=== PATIENT | female | born 1965 | race Caucasian/White ===

== ENCOUNTER 2023-03-16 17:20 | Emergency (ER) | payer BC, SELFPAY ==
[2023-03-16 17:24] VITALS: BP 164/95; PULSE 80; RESP 18; TEMP 37.2; O2SAT 100; BMI 40.3
--- NOTE | 2023-03-16 17:28 | ED.ABDPAIN1 ---
HPI - Abdominal Pain General Chief Complaint: Abdominal Pain Stated Complaint: Lower Back Pain, Abdominal Pain Time Seen by Provider: 03/16/23 17:28 Source: patient Mode of arrival: walk-in Limitations: no limitations History of Present Illness HPI narrative: Patient presents to emergency department complaining of left flank and abdomen pain. Patient states symptoms started on Tuesday. She called her primary care doctor yesterday and was given a prescription for Cipro. The patient has taken 2 doses of Cipro since yesterday. She states she is just not feeling well is not having regular bowel movements. She denies any vomiting has been nauseated and not eating and drinking as he normally does. She denies any fever but feels generalized malaise. She denies any upper respiratory infection symptoms. She denies any cough, chest pain, shortness of breath. She denies any hematuria, dysuria. She states she had a colonoscopy done at [place] and she had 3 polyps this was a while back. Does not remember who her doctor was. Related Data Home Medications Medication Instructions Recorded Confirmed ciprofloxacin HCl 500 mg tablet 500 mg PO Q12H 03/16/23 03/16/23 metronidazole 500 mg tablet 500 mg PO Q12H 03/16/23 03/16/23 Allergies Allergy/AdvReac Type Severity Reaction Status Date / Time Iodinated Contrast Media Allergy Intermediate Verified 03/16/23 17:28 Penicillins Allergy Intermediate Verified 03/16/23 17:28 Review of Systems ROS Status of ROS 10 or more systems reviewed and unremarkable except as noted in history and below Exam Narrative Exam Narrative: Nurses notes and vital signs reviewed and patient is not hypoxic. General: Nontoxic, Well-appearing and in no apparent distress. Skin: Warm, dry, no pallor noted. No Rash Head: Normocephalic, atraumatic. Neck: Supple, non-tender. Eye: Pupils are equal, round and EOMI. No scleral icterus. Ears, Nose, Mouth, and Throat: TM clear, no posterior oropharynx erythema or nasal mucosal hypertrophy, uvula is mid-line Oral mucosa is moist Cardiovascular: Regular Rate and Rhythm without murmur, gallop or rub. Respiratory: No accessory muscle use or respiratory distress. Lungs are clear to auscultation, no wheezing, rales or rhonchi Chest Wall: no tenderness Back: No midline thoracic or lumbar vertebral tenderness. No CVA tenderness Musculoskeletal: normal ROM, no calf or popliteal tenderness, no lower extremity edema/swelling GI: Abdomen is soft, non-distended. Normal bowel sounds. No masses appreciated. Moderate left lower quadrant tenderness to palpation. No rebound, guarding, or rigidity noted. Neurological: A&O x4. No cranial nerve dysfunction observed. No truncal ataxia. Moves all extremities. Sensation intact. Psychiatric: Cooperative and interactive. Normal mood and affect. Constitutional Vital Signs, click to edit/add: Last Vital Signs Temp 98.9 F 03/16/23 17:24 Pulse 80 03/16/23 17:24 Resp 18 03/16/23 17:24 BP 164/95 H 03/16/23 17:24 Pulse Ox 100 03/16/23 17:24 O2 Del Method Room Air 03/16/23 17:24 Course Vital Signs Vital signs: Vital Signs Temperature 98.9 F 03/16/23 17:24 Pulse Rate 80 03/16/23 17:24 Respiratory Rate 18 03/16/23 17:24 Blood Pressure 164/95 H 03/16/23 17:24 Pulse Oximetry 100 03/16/23 17:24 Oxygen Delivery Method Room Air 03/16/23 17:24 Temperature 98.9 F 03/16/23 17:24 Pulse Rate 80 03/16/23 17:24 Respiratory Rate 18 03/16/23 17:24 Blood Pressure 164/95 H 03/16/23 17:24 Pulse Oximetry 100 03/16/23 17:24 Oxygen Delivery Method Room Air 03/16/23 17:24 MDM - Abdominal Pain MDM Narrative Medical decision making narrative: Patient had an IV established, given 4 mg of morphine, 4 mg of Zofran, and 1 L of normal saline. Lab studies were ordered and CT scan abdomen and pelvis is pending. Patient will be signed out at the end of my shift to Dr. Rodriguez her awaiting CT scan results, lab studies, reevaluation, and disposition. Differential Diagnosis Differential diagnosis: Likely abdominal pain, constipation, diverticulitis and small bowel obstruction Lab Data Attestation: I reviewed the patient's lab results. Labs: Lab Results 03/16/23 Range/Units 17:34 WBC 12.4 H (4.0-11.0) 10^3/uL RBC 3.85 L (4.20-5.40) 10^6/uL Hgb 12.6 (12.0-16.0) g/dL Hct 37.7 (36.0-48.0) % MCV 97.9 (81.0-99.0) fL MCH 32.7 (26.7-34.0) pg MCHC 33.4 (29.9-35.2) g/dL RDW 12.6 (11.0-15.0) % Plt Count 385 (150-450) 10^3/uL MPV 10.2 (9.5-13.5) fL Neut % (Auto) 72.6 (43.0-75.0) % Lymph % (Auto) 17.3 L (20.5-60.0) % [place] % (Auto) 7.4 (1.7-12.0) % Eos % (Auto) 1.9 (0.9-7.0) % Baso % (Auto) 0.3 (0.2-2.0) % Neut # (Auto) 9.0 H (1.4-6.5) 10^3/uL Lymph # (Auto) 2.1 (1.2-3.8) 10^3/uL [place] # (Auto) 0.9 H (0.3-0.8) 10^3/uL Eos # (Auto) 0.2 (0.0-0.7) 10^3/uL Baso # (Auto) 0.0 (0.0-0.1) 10^3/uL Abs Immat Gran (auto) 0.06 H (0.00-0.03) 10^3/uL Imm/Tot Granulo (auto) 0.5 (0.0-0.5) % Sodium 135 L (136-145) mmol/L Potassium 3.7 (3.5-5.1) mmol/L Chloride 99 (98-107) mmol/L Carbon Dioxide 27.7 (21.0-32.0) mmol/L Anion Gap 12.0 BUN 12.0 (7.0-18.0) mg/dL Creatinine 0.85 (0.55-1.02) mg/dL Est GFR ( Amer) >60 (>=60) Est GFR (Non-Af Amer) >60 (>=60) BUN/Creatinine Ratio 14.1 Glucose 108 H (74-106) mg/dL Lactate 0.9 (0.4-2.0) mmol/L Calcium 9.4 (8.5-10.1) mg/dL Total Bilirubin 0.7 (0.2-1.0) mg/dL AST 22 (15-37) U/L ALT 29 (14-59) U/L Alkaline Phosphatase 73 (46-116) U/L Total Protein 8.5 H (6.4-8.2) g/dL Albumin 3.9 (3.4-5.0) g/dL Globulin 4.6 g/dL Albumin/Globulin Ratio 0.8 Lipase 43.0 L (73.0-393.0) U/L Discharge Plan Discharge Chief Complaint: Abdominal Pain Clinical Impression: Diverticulitis Patient Disposition: Still a Patient Prescriptions / Home Meds: No Action ciprofloxacin HCl 500 mg tablet 500 mg PO Q12H metronidazole 500 mg tablet 500 mg PO Q12H Referrals: JUSTINA KIDD [Primary Care Provider] - 1 week
--- NOTE | 2023-03-16 17:34 | CT_ITS ---
The [address] [address] Patient Name: MAR ADAME MRN: [id number] date: 1965 Sex: F Assigned Patient Location: ER Current Patient Location: ER Accession/Order Number: [id number] Exam Date: 03/16/2023 18:27 Report Date: 03/16/2023 19:21 At the request of: HIWOT CULVER Procedure: CT abdomen pelvis wo con CT ABDOMEN/PELVIS WITHOUT IV CONTRAST. INDICATION: llq pain COMPARISON: 05/28/2021 TECHNIQUE: Contiguous axial images were obtained from the lung bases to the pelvic floor without intravenous or oral contrast. Coronal and sagittal reformations are provided. FINDINGS: LOWER LUNGS: There is minimal atelectasis in the lower lobes. LIVER/BILIARY TREE: No discrete lesion. No intrahepatic ductal dilatation. GALLBLADDER: Status post cholecystectomy. CBD: Normal CBD. SPLEEN: Normal in size. PANCREAS: No appreciable peripancreatic fluid. No pancreatic ductal dilatation. No discrete lesion. ADRENALS: Normal. KIDNEYS: No hydronephrosis. No radiopaque calculus. STOMACH AND BOWEL: Stomach is unremarkable. No dilated bowel loops. There is thickening and inflammation of the sigmoid colon secondary to acute diverticulitis. No evidence of perforation or abscess. APPENDIX: Normal appendix. PERITONEAL CAVITY: No fluid. There is stranding surrounding the sigmoid colon. ABDOMINAL WALL: No subcutaneous stranding. No subcutaneous fluid collection. LYMPH NODES: No mesenteric or retroperitoneal lymphadenopathy by CT criteria. ABDOMINAL AORTA: No aneurysm. PELVIS: Acute sigmoid diverticulitis. There is mild bladder thickening likely reactive. MUSCULOSKELETAL: No acute osseous abnormality. CT/CT abdomen pelvis wo con IMPRESSION: Acute uncomplicated sigmoid diverticulitis. Electronically authenticated by: MARIO ROLDAN Date: 03/16/2023 19:21
[2023-03-16 17:46] LABS: Basophils Percent Auto 0.3 % (0.2-2.0); Eosinophils Absolute Auto 0.2 10^3/uL (0.0-0.7); Eosinophils Percent Auto 1.9 % (0.9-7.0); Hematocrit 37.7 % (36.0-48.0); Hemoglobin 12.6 g/dL (12.0-16.0); Immature Granulocytes Abs Auto 0.06 10^3/uL (0.00-0.03); Immature Granulocytes Pct Auto 0.5 % (0.0-0.5); Lymphocytes Absolute Auto 2.1 10^3/uL (1.2-3.8); Lymphocytes Percent Auto 17.3 % (20.5-60.0); Mean Corpuscular HGB Conc 33.4 g/dL (29.9-35.2); Mean Corpuscular Hemoglobin 32.7 pg (26.7-34.0); Mean Corpuscular Volume 97.9 fL (81.0-99.0); Mean Platelet Volume 10.2 fL (9.5-13.5); Monocytes Absolute Auto 0.9 10^3/uL (0.3-0.8); Monocytes Percent Auto 7.4 % (1.7-12.0); Neutrophils Percent Auto 72.6 % (43.0-75.0); Platelet Count 385 10^3/uL (150-450); Red Blood Count 3.85 10^6/uL (4.20-5.40); Red Cell Distribution Width 12.6 % (11.0-15.0); White Blood Count 12.4 10^3/uL (4.0-11.0)
[2023-03-16] MEDS: 0.9 % SODIUM CHLORIDE 1,000 ML 999 ML IV (17:57)
[2023-03-16] MEDS: ONDANSETRON PF 4 MG/2 ML VIAL IV (17:57)
[2023-03-16] MEDS: MORPHINE SULFATE 2 MG/ML SYRINGE 4 MG IV (17:57)
[2023-03-16 18:03] LABS: Lactate/Lactic Acid 0.9 mmol/L (0.4-2.0)
[2023-03-16 18:09] LABS: Alanine Aminotransferase 29 U/L (14-59); Albumin Globulin Ratio 0.8; Albumin Level 3.9 g/dL (3.4-5.0); Alkaline Phosphatase 73 U/L (46-116); Aspartate Amino Transferase 22 U/L (15-37); BUN Creatinine Ratio 14.1; Bilirubin Total 0.7 mg/dL (0.2-1.0); Calcium 9.4 mg/dL (8.5-10.1); Carbon Dioxide 27.7 mmol/L (21.0-32.0); Chloride 99 mmol/L (98-107); Estimated GFR (African America >60 (>=60); Estimated GFR (Non-African Ame >60 (>=60); Globulin 4.6 g/dL; Glucose 108 mg/dL (74-106); Potassium 3.7 mmol/L (3.5-5.1); Sodium 135 mmol/L (136-145); Total Protein 8.5 g/dL (6.4-8.2)
--- NOTE | 2023-03-16 18:09 | ECG_ITS ---
The [facility] Test Date: 2023-03-16 Pat Name: MAR ADAME Department: Room: - Gender: Female [employer] Engineer: : 1965 Requested By: [id number] Order Number: [id number] Reading MD: ELIAZAR GILLIS Measurements Intervals [place] Rate: 82 P: 65 [place]: 158 QRS: 45 QRSD: 130 T: 36 QT: 400 QTc: 438 Interpretive Statements 1100 Sinus rhythm 2450 Right bundle branch block 3514 Cannot rule out lateral myocardial infarction, age undetermined 9150 abnormal ECG No previous ECG available for comparison Electronically Signed On 03-17-2023 7:15:19 EDT by ELIAZAR GILLIS
[2023-03-16 18:44] LABS: Bilirubin Urine NEGATIVE (NEGATIVE); Blood Urine NEGATIVE (NEGATIVE); Clarity Urine CLEAR (CLEAR); Color Urine YELLOW (YELLOW); Glucose Urine UA NEGATIVE (NEGATIVE); Ketones Urine 15 mg/dL (NEGATIVE); Leukocyte Esterase Urine TRACE (NEGATIVE); Nitrite Urine NEGATIVE (NEGATIVE); Protein Urine TRACE mg/dL (NEG/TRACE); Specific Gravity Urine >=1.030 (1.005-1.025); Urobilinogen Urine 0.2 EU/dL (0.2-1.0); pH Urine 5.5 (5.0-9.0)
[2023-03-16 18:53] LABS: Urine Microscopic Indicated YES
[2023-03-16 19:01] LABS: Bacteria Urine TRACE #/HPF (NONE SEEN); Mucus Urine SMALL (NONE SEEN); RBC Urine 0-2 #/HPF (0-2)
[2023-03-16 19:02] LABS: Cast Seen? NONE SEEN #/LPF (NONE SEEN); Crystals Seen? None Seen #/HPF (None Seen); Squamous Epithelial Cell Urine FEW #/LPF (NONE/RARE); Urine Culture Indicated NO
[2023-03-16] MEDS: CIPROFLOXACIN IN 5 % DEXTROSE 400 MG/200 ML PIGGYBACK IV (19:23)
[2023-03-16] MEDS: METRONIDAZOLE/SODIUM CHLORIDE 500 MG/100 ML PREMIX 100 MG IV (19:23)
[2023-03-16] MEDS: PROMETHAZINE HCL 25 MG/ML VIAL 12.5 MG IV (20:38)
[2023-03-16 20:52] VITALS: PULSE 76; RESP 16; O2SAT 98
== END 2023-03-16 20:53 | disposition home or self-care (01) ==
PROVIDERS: Emergency Medicine; Emergency Provider Internal Medicine; PCP Family Medicine
DX: K57.32 Diverticulitis of large intestine without perforation or abscess without bleeding (principal)
CPT/HCPCS: 36415; 74176; 80053; 81001; 83605; 83690; 85025; 93005; 96365; 96375; 99285

== ENCOUNTER 2023-07-17 13:50 | Emergency (ER) | payer BC, SELFPAY ==
[2023-07-17 13:54] VITALS: BP 136/92; PULSE 89; RESP 16; TEMP 36.9; O2SAT 96; BMI 39.5
--- NOTE | 2023-07-17 14:03 | ED.WOUNDLAC1 ---
HPI - Wound/Laceration General Chief Complaint: Wound/Laceration Stated Complaint: laceration left hand Time Seen by Provider: 07/17/23 13:54 Source: patient Mode of arrival: walk-in Limitations: no limitations History of Present Illness HPI narrative: 58-year-old female presents for a wound to her left index finger. It was sustained on a kitchen knife just before coming into the emergency department and she couldn't get it to stop bleeding. It's been more than ten years since her last tetanus shot. No other injury was sustained. Related Data Allergies Allergy/AdvReac Type Severity Reaction Status Date / Time Iodinated Contrast Media Allergy Intermediate Verified 07/17/23 13:53 Penicillins Allergy Intermediate Verified 07/17/23 13:53 Review of Systems ROS Narrative A ten point review of systems is negative except as noted above. Exam Narrative Exam Narrative: Nurses note and vital signs reviewed and patient is not hypoxic. General: The patient appears well and in no apparent distress. Patient is resting comfortably on cart. Skin: Warm, dry, no pallor noted. There is no rash noted. Head: Normocephalic, atraumatic Eye: Normal conjunctiva, no drainage Ears, Nose, Mouth, and Throat: oral mucosa is moist. Nares patent. Cardiovascular: Regular Rate and Rhythm Respiratory: Patient is in no distress, no accessory muscle use Back: non-tender GI: nontender Musculoskeletal: there is an avulsion of skin on her left index finger on the radial side distally adjacent to the nail. Minimal bleeding is present easily controlled with pressure. Neurological: A&O, normal speech Psychiatric: Cooperative Constitutional Vital Signs, click to edit/add: Last Vital Signs Temp 98.5 F 07/17/23 13:54 Pulse 89 07/17/23 13:54 Resp 16 07/17/23 13:54 BP 136/92 H 07/17/23 13:54 Pulse Ox 96 07/17/23 13:54 O2 Del Method Room Air 07/17/23 13:54 Course Vital Signs Vital signs: Vital Signs Temperature 98.5 F 07/17/23 13:54 Pulse Rate 89 07/17/23 13:54 Respiratory Rate 16 07/17/23 13:54 Blood Pressure 136/92 H 07/17/23 13:54 Pulse Oximetry 96 07/17/23 13:54 Oxygen Delivery Method Room Air 07/17/23 13:54 Temperature 98.5 F 07/17/23 13:54 Pulse Rate 89 07/17/23 13:54 Respiratory Rate 16 07/17/23 13:54 Blood Pressure 136/92 H 07/17/23 13:54 Pulse Oximetry 96 07/17/23 13:54 Oxygen Delivery Method Room Air 07/17/23 13:54 MDM - Wound/Laceration MDM Narrative Medical decision making narrative: sutures are not indicated. Tetanus status is updated and wound was covered with Gelfoam and tube gauze. Treatment diagnosis and follow-up were discussed with the patient. Differential Diagnosis Differential diagnosis: Likely laceration and other (skin avulsion) Discharge Plan Discharge Chief Complaint: Wound/Laceration Clinical Impression: Avulsion of skin Patient Disposition: Home, Self-Care Time of Disposition Decision: 14:02 Condition: Good Mode of Transportation: Private Vehicle Instructions: Laceration Without Closure (ED) Additional Instructions: Leave dressing on for forty-eight hours. Remove and apply bandage daily. Stand Alone Forms: Portal Instructions Referrals: JUSTINA KIDD [Primary Care Provider] - 1 week
[2023-07-17] MEDS: SURGIFOAM GEL SPONGE SIZE 100 1 EACH TOPICAL (14:08)
[2023-07-17] MEDS: ADACEL DIPH,PERTUSS(ACELL),TET VAC/PF 0.5 ML ADULT SYRINGE IM (14:09)
[2023-07-17 14:20] VITALS: BP 140/90; PULSE 75; RESP 18; O2SAT 97
== END 2023-07-17 14:21 | disposition home or self-care (01) ==
PROVIDERS: Emergency Provider Emergency Medicine; PCP Family Medicine
DX: S61.201A Unspecified open wound of left index finger without damage to nail, initial encounter (principal); Z23 Encounter for immunization; W26.0XXA Contact with knife, initial encounter
CPT/HCPCS: 90471; 90715; 99283

== ENCOUNTER 2023-11-02 17:23 | Emergency (ER) | payer BC, SELFPAY ==
[2023-11-02 17:26] VITALS: BP 142/84; PULSE 81; TEMP 37.2; BMI 39.5
--- NOTE | 2023-11-02 17:45 | ED.GENADUL1 ---
Documented by User: ZAHRA Rachel 11/02/23 21:43 HPI HPI - General Adult General Chief complaint: Back Pain/Injury Stated complaint: BACK PAIN Time Seen by Provider: 11/02/23 17:33 Source: patient Mode of arrival: walk-in Limitations: no limitations History of Present Illness HPI narrative: 58-year-old female presents to the emergency department with complaint of left-sided abdominal pain and flank pain. Onset yesterday insidiously with progressive worsening into today. Has had some nausea. Pain described as sharp. History of diverticulosis. Denies any fevers, vomiting, diarrhea, dysuria, frequency, hematuria. Quality:?sharp Severity:?moderate Timing:?as above, constant, worsening Context: Normal setting and activity? Modifying factors:?Took motrin this morning with some relief Associated symptoms: nausea Related Data Previous Rx's ?Medication ?Instructions ?Recorded cefdinir 300 mg capsule 300 mg PO BID 7 days #14 caps 11/02/23 docusate sodium 100 mg capsule 100 mg PO BID stool softener #20 11/02/23 (Colace) caps hydrocodone 5 mg-acetaminophen 325 1 tab PO Q4H PRN pain 3 days #8 11/02/23 mg tablet tabs metronidazole 500 mg tablet 500 mg PO TID 7 days #21 tabs 11/02/23 Allergies Allergy/AdvReac Type Severity Reaction Status Date / Time Iodinated Contrast Media Allergy Intermediate Verified 11/02/23 17:31 Penicillins Allergy Intermediate Verified 11/02/23 17:31 Opioid HPI Opioid Management Most Recent Opioid Data: Last Pain Scale 6 11/02/23 17:41 Last ED Pain Assessment 11/02/23 17:41 Review of Systems ROS Narrative CONST: Denies any fever, chills HENT: Denies any congestion, sore throat RESP: Denies any cough, shortness of breath CV: Denies any chest pain, peripheral edema GI: +abd pain, nausea.? Denies any vomiting, diarrhea : Denies any flank pain, dysuria MS: Denies any back pain, myalgias SKIN: Denies any color change, rash NEURO: Denies numbness, weakness PSYCHIATRIC: Denies confusion, agitation Exam Narrative Exam Narrative: Vital signs reviewed Nurses notes noted CONST: Nontoxic, well appearing, well nourished, in no distress.? No diaphoresis.?? HENT: normocephalic, atraumatic, moist mucous membrane, no abnormalities of the nose noted, hearing normal EYES: normal appearing conjunctiva, no apparent discharge bilat NECK: normal appearance CV: normal rate, regular rhythm, no murmur RESP: normal effort, speaking in complete sentences. Lung sounds clear and equal bilat.? No wheezes, rales, rhonchi GI: normal bowel sounds, soft, no distension, + LUQ, flank tenderness. : +left CVA tenderness MS: no edema, tenderness SKIN: no pallor NEURO: A&Ox 3, no focal findings PSYCH: normal mood, affect Constitutional Vital Signs, click to edit/add: Last Vital Signs Temp 98.9 F 11/02/23 17:26 Pulse 72 11/02/23 20:17 Resp 18 11/02/23 20:17 BP 150/94 H 11/02/23 20:17 Pulse Ox 99 11/02/23 20:17 O2 Del Method Room Air 11/02/23 20:17 Course Reevaluation(s) Reevaluation #1: On reevaluation, pain improved. Discussed with patient results, plan, and disposition. She is agreeable with plan. Time: 19:27 Vital Signs Vital signs: Vital Signs Temperature 98.9 F 11/02/23 17:26 Pulse Rate 81 11/02/23 17:26 Respiratory Rate 16 11/02/23 17:26 Blood Pressure 142/84 H 11/02/23 17:26 Temperature 98.9 F 11/02/23 17:26 Pulse Rate 72 11/02/23 20:17 Respiratory Rate 18 11/02/23 20:17 Blood Pressure 150/94 H 11/02/23 20:17 Pulse Oximetry 99 11/02/23 20:17 Oxygen Delivery Method Room Air 11/02/23 20:17 Medical Decision Making MDM Narrative Medical decision making narrative: This is a pleasant 58-year-old female who presents to the emergency department with complaint of left-sided abdominal pain. History of diverticulosis. Has had associated nausea. Denies fever, vomiting, diarrhea, dysuria. On arrival, afebrile, vital signs are stable. On exam, oxygen appearing patient in dress. She has tenderness to palpation left upper quadrant and left lateral aspect of her upper abdomen. She has left CVA 100 and next reveal No leukocytosis, anemia, thrombocytopenia, electrolyte imbalance, renal impairment. Glucose 101. LFTs, lipase unremarkable. Urinalysis shows no evidence of infection. CT abdomen pelvis imaging, per radiologist reveals diverticulitis. Abdominal pain likely secondary to acute diverticulitis. Appears mild, no perforation reported. Pyelonephritis less likely based on urinalysis and imaging Ureterolithiasis like likely based on imaging. Consider admission, however no leukocytosis, fever, evidence of perforation or complications of her diverticulitis on CT evaluation. Patient was given IV fluids for hydration. She was given pain medicines with overall improvement of her symptoms. Disposition ? The patient was discharged. Plan: Patient will be discharged to home. Condition at time of disposition: stable Prescription sent to patient's pharmacy include cefdinir, Flagyl, limited supply of [place], and Colace Advised to follow up with primary provider. Advised to return for any worsening and/or development of new, concerning signs or symptoms PLEASE NOTE: Portions of the medical record may have been produced using electronic coil repair technician and may contain errors with respect to translation of words which may not have been identified prior to finalization of the chart. Medical Records Medical records reviewed: Yes I reviewed the patient's medical records Lab Data Lab results reviewed: Yes I reviewed the patient's lab results Labs: Lab Results 11/02/23 11/02/23 Range/Units 18:00 18:06 WBC 10.3 (4.0-11.0) 10^3/uL RBC 4.02 L (4.20-5.40) 10^6/uL Hgb 13.1 (12.0-16.0) g/dL Hct 40.8 (36.0-48.0) % MCV 101.5 H (81.0-99.0) fL MCH 32.6 (26.7-34.0) pg MCHC 32.1 (29.9-35.2) g/dL RDW 12.6 (11.0-15.0) % Plt Count 346 (150-450) 10^3/uL MPV 10.0 (9.5-13.5) fL Neut % (Auto) 62.6 (43.0-75.0) % Lymph % (Auto) 22.8 (20.5-60.0) % [place] % (Auto) 8.7 (1.7-12.0) % Eos % (Auto) 5.2 (0.9-7.0) % Baso % (Auto) 0.4 (0.2-2.0) % Neut # (Auto) 6.5 (1.4-6.5) 10^3/uL Lymph # (Auto) 2.4 (1.2-3.8) 10^3/uL [place] # (Auto) 0.9 H (0.3-0.8) 10^3/uL Eos # (Auto) 0.5 (0.0-0.7) 10^3/uL Baso # (Auto) 0.0 (0.0-0.1) 10^3/uL Abs Immat Gran (auto) 0.03 (0.00-0.03) 10^3/uL Imm/Tot Granulo (auto) 0.3 (0.0-0.5) % Sodium 140 (136-145) mmol/L Potassium 3.6 (3.5-5.1) mmol/L Chloride 101 (98-107) mmol/L Carbon Dioxide 29.6 (21.0-32.0) mmol/L Anion Gap 13.0 BUN 16.0 (7.0-18.0) mg/dL Creatinine 0.86 (0.55-1.02) mg/dL Est GFR ( Amer) >60 (>=60) Est GFR (Non-Af Amer) >60 (>=60) BUN/Creatinine Ratio 18.6 Glucose 101 (74-106) mg/dL Calcium 9.3 (8.5-10.1) mg/dL Total Bilirubin 0.7 (0.2-1.0) mg/dL AST 12 L (15-37) U/L ALT 25 (14-59) U/L Alkaline Phosphatase 81 (46-116) U/L Total Protein 7.8 (6.4-8.2) g/dL Albumin 3.7 (3.4-5.0) g/dL Globulin 4.1 g/dL Albumin/Globulin Ratio 0.9 Lipase 25.0 (16.0-77.0) U/L Urine Color Yellow (YELLOW) Urine Clarity Clear (CLEAR) Urine pH 6.0 (5.0-9.0) Ur Specific [place] 1.025 (1.005-1.025) Urine Protein Negative (NEG/TRACE) mg/dL Urine Glucose (UA) Negative (NEGATIVE) mg/dL Urine Ketones Trace A (NEGATIVE) mg/dL Urine Occult Blood Negative (NEGATIVE) Urine Nitrite Negative (NEGATIVE) Urine Bilirubin Negative (NEGATIVE) Urine Urobilinogen 0.2 (0.2-1.0) EU/dL Ur Leukocyte Esterase Trace A (NEGATIVE) Urine RBC 0-2 (0-2) #/HPF Urine WBC 0-2 A (NONE SEEN) #/HPF Ur Squamous Epith Cells Rare (NONE/RARE) #/LPF Ur Transition Epith Cell Moderate A (NONE SEEN) #/LPF Urine Crystals Seen A (None Seen) #/HPF Amorphous Sediment Few Urine Bacteria Trace A (NONE SEEN) #/HPF Urine Casts None seen (NONE SEEN) #/LPF Urine Mucus Large A (NONE SEEN) Ur Culture Indicated? No Imaging Data CT scan - abdomen: Attestation: I have reviewed the pertinent imaging results. Radiologist's impression: ITS Impressions Abdomen/Pelvis CT 11/02/23 18:20 IMPRESSION: Mild uncomplicated diverticulitis mid and distal descending colon left flank and left lower quadrant. Involves a portion of colon more proximal than previous inflammatory process noted on CT 03/16/2023. Normal left kidney and ureter without ureteral calculus. Electronically authenticated by: THOMPSON BARROS Date: 11/02/2023 19:06 Discharge Plan Discharge Stand Alone Forms: Portal Instructions Chief Complaint: Back Pain/Injury Clinical Impression: Diverticulitis, Left lateral abdominal pain Patient Disposition: Home, Self-Care Time of Disposition Decision: 20:32 Condition: Good Mode of Transportation: Private Vehicle Prescriptions / Home Meds: New hydrocodone-acetaminophen 5-325 mg tablet 1 tab PO Q4H PRN (Reason: pain) 3 Days Qty: 8 0RF metronidazole 500 mg tablet 500 mg PO TID 7 Days Qty: 21 0RF cefdinir 300 mg capsule 300 mg PO BID 7 Days Qty: 14 0RF docusate sodium [Colace] 100 mg capsule 100 mg PO BID Qty: 20 0RF Print Language: [place] Instructions: Diverticulitis (ED) Referrals: JUSTINA KIDD [Primary Care Provider] - 1 week Discharge Date/Time: 11/02/23 20:52 Documented by User: Pérez Frederick MD 11/02/23 21:47 HPI HPI - General Adult General Chief complaint: Back Pain/Injury Stated complaint: BACK PAIN Time Seen by Provider: 11/02/23 17:33 Related Data Previous Rx's ?Medication ?Instructions ?Recorded cefdinir 300 mg capsule 300 mg PO BID 7 days #14 caps 11/02/23 docusate sodium 100 mg capsule 100 mg PO BID stool softener #20 11/02/23 (Colace) caps hydrocodone 5 mg-acetaminophen 325 1 tab PO Q4H PRN pain 3 days #8 11/02/23 mg tablet tabs metronidazole 500 mg tablet 500 mg PO TID 7 days #21 tabs 11/02/23 Allergies Allergy/AdvReac Type Severity Reaction Status Date / Time Iodinated Contrast Media Allergy Intermediate Verified 11/02/23 17:31 Penicillins Allergy Intermediate Verified 11/02/23 17:31 Opioid HPI Opioid Management Most Recent Opioid Data: Last Pain Scale 6 11/02/23 17:41 Last ED Pain Assessment 11/02/23 17:41 Exam Constitutional Vital Signs, click to edit/add: Last Vital Signs Temp 98.9 F 11/02/23 17:26 Pulse 72 11/02/23 20:17 Resp 18 11/02/23 20:17 BP 150/94 H 11/02/23 20:17 Pulse Ox 99 11/02/23 20:17 O2 Del Method Room Air 11/02/23 20:17 Course Vital Signs Vital signs: Vital Signs Temperature 98.9 F 11/02/23 17:26 Pulse Rate 81 11/02/23 17:26 Respiratory Rate 16 11/02/23 17:26 Blood Pressure 142/84 H 11/02/23 17:26 Temperature 98.9 F 11/02/23 17:26 Pulse Rate 72 11/02/23 20:17 Respiratory Rate 18 11/02/23 20:17 Blood Pressure 150/94 H 11/02/23 20:17 Pulse Oximetry 99 11/02/23 20:17 Oxygen Delivery Method Room Air 11/02/23 20:17 Medical Decision Making MDM Narrative Medical decision making narrative: This is a pleasant 58-year-old female who presents to the emergency department with complaint of left-sided abdominal pain. History of diverticulosis. Has had associated nausea. Denies fever, vomiting, diarrhea, dysuria. On arrival, afebrile, vital signs are stable. On exam, oxygen appearing patient in dress. She has tenderness to palpation left upper quadrant and left lateral aspect of her upper abdomen. She has left CVA 100 and next reveal No leukocytosis, anemia, thrombocytopenia, electrolyte imbalance, renal impairment. Glucose 101. LFTs, lipase unremarkable. Urinalysis shows no evidence of infection. CT abdomen pelvis imaging, per radiologist reveals diverticulitis. Abdominal pain likely secondary to acute diverticulitis. Appears mild, no perforation reported. Pyelonephritis less likely based on urinalysis and imaging Ureterolithiasis like likely based on imaging. Consider admission, however no leukocytosis, fever, evidence of perforation or complications of her diverticulitis on CT evaluation. Patient was given IV fluids for hydration. She was given pain medicines with overall improvement of her symptoms. Disposition ? The patient was discharged. Plan: Patient will be discharged to home. Condition at time of disposition: stable Prescription sent to patient's pharmacy include cefdinir, Flagyl, limited supply of [place], and Colace Advised to follow up with primary provider. Advised to return for any worsening and/or development of new, concerning signs or symptoms PLEASE NOTE: Portions of the medical record may have been produced using electronic coil repair technician and may contain errors with respect to translation of words which may not have been identified prior to finalization of the chart. I, Dr Frederick, have reviewed the above progress note and course of action in the ER; agree with the above. I have gone over history and physical, and discussed disposition and treatment plan with the patient. Lab Data Labs: Lab Results 11/02/23 11/02/23 Range/Units 18:00 18:06 WBC 10.3 (4.0-11.0) 10^3/uL RBC 4.02 L (4.20-5.40) 10^6/uL Hgb 13.1 (12.0-16.0) g/dL Hct 40.8 (36.0-48.0) % MCV 101.5 H (81.0-99.0) fL MCH 32.6 (26.7-34.0) pg MCHC 32.1 (29.9-35.2) g/dL RDW 12.6 (11.0-15.0) % Plt Count 346 (150-450) 10^3/uL MPV 10.0 (9.5-13.5) fL Neut % (Auto) 62.6 (43.0-75.0) % Lymph % (Auto) 22.8 (20.5-60.0) % [place] % (Auto) 8.7 (1.7-12.0) % Eos % (Auto) 5.2 (0.9-7.0) % Baso % (Auto) 0.4 (0.2-2.0) % Neut # (Auto) 6.5 (1.4-6.5) 10^3/uL Lymph # (Auto) 2.4 (1.2-3.8) 10^3/uL [place] # (Auto) 0.9 H (0.3-0.8) 10^3/uL Eos # (Auto) 0.5 (0.0-0.7) 10^3/uL Baso # (Auto) 0.0 (0.0-0.1) 10^3/uL Abs Immat Gran (auto) 0.03 (0.00-0.03) 10^3/uL Imm/Tot Granulo (auto) 0.3 (0.0-0.5) % Sodium 140 (136-145) mmol/L Potassium 3.6 (3.5-5.1) mmol/L Chloride 101 (98-107) mmol/L Carbon Dioxide 29.6 (21.0-32.0) mmol/L Anion Gap 13.0 BUN 16.0 (7.0-18.0) mg/dL Creatinine 0.86 (0.55-1.02) mg/dL Est GFR ( Amer) >60 (>=60) Est GFR (Non-Af Amer) >60 (>=60) BUN/Creatinine Ratio 18.6 Glucose 101 (74-106) mg/dL Calcium 9.3 (8.5-10.1) mg/dL Total Bilirubin 0.7 (0.2-1.0) mg/dL AST 12 L (15-37) U/L ALT 25 (14-59) U/L Alkaline Phosphatase 81 (46-116) U/L Total Protein 7.8 (6.4-8.2) g/dL Albumin 3.7 (3.4-5.0) g/dL Globulin 4.1 g/dL Albumin/Globulin Ratio 0.9 Lipase 25.0 (16.0-77.0) U/L Urine Color Yellow (YELLOW) Urine Clarity Clear (CLEAR) Urine pH 6.0 (5.0-9.0) Ur Specific [place] 1.025 (1.005-1.025) Urine Protein Negative (NEG/TRACE) mg/dL Urine Glucose (UA) Negative (NEGATIVE) mg/dL Urine Ketones Trace A (NEGATIVE) mg/dL Urine Occult Blood Negative (NEGATIVE) Urine Nitrite Negative (NEGATIVE) Urine Bilirubin Negative (NEGATIVE) Urine Urobilinogen 0.2 (0.2-1.0) EU/dL Ur Leukocyte Esterase Trace A (NEGATIVE) Urine RBC 0-2 (0-2) #/HPF Urine WBC 0-2 A (NONE SEEN) #/HPF Ur Squamous Epith Cells Rare (NONE/RARE) #/LPF Ur Transition Epith Cell Moderate A (NONE SEEN) #/LPF Urine Crystals Seen A (None Seen) #/HPF Amorphous Sediment Few Urine Bacteria Trace A (NONE SEEN) #/HPF Urine Casts None seen (NONE SEEN) #/LPF Urine Mucus Large A (NONE SEEN) Ur Culture Indicated? No Imaging Data CT scan - abdomen: Radiologist's impression: ITS Impressions Abdomen/Pelvis CT 11/02/23 18:20
[2023-11-02 18:14] LABS: Basophils Percent Auto 0.4 % (0.2-2.0); Eosinophils Absolute Auto 0.5 10^3/uL (0.0-0.7); Eosinophils Percent Auto 5.2 % (0.9-7.0); Hematocrit 40.8 % (36.0-48.0); Hemoglobin 13.1 g/dL (12.0-16.0); Immature Granulocytes Abs Auto 0.03 10^3/uL (0.00-0.03); Immature Granulocytes Pct Auto 0.3 % (0.0-0.5); Lymphocytes Absolute Auto 2.4 10^3/uL (1.2-3.8); Lymphocytes Percent Auto 22.8 % (20.5-60.0); Mean Corpuscular HGB Conc 32.1 g/dL (29.9-35.2); Mean Corpuscular Hemoglobin 32.6 pg (26.7-34.0); Mean Corpuscular Volume 101.5 fL (81.0-99.0); Monocytes Absolute Auto 0.9 10^3/uL (0.3-0.8); Monocytes Percent Auto 8.7 % (1.7-12.0); Neutrophils Absolute Auto 6.5 10^3/uL (1.4-6.5); Neutrophils Percent Auto 62.6 % (43.0-75.0); Platelet Count 346 10^3/uL (150-450); Red Blood Count 4.02 10^6/uL (4.20-5.40); Red Cell Distribution Width 12.6 % (11.0-15.0); White Blood Count 10.3 10^3/uL (4.0-11.0)
--- NOTE | 2023-11-02 18:20 | CT_ITS ---
The [address] [address] Patient Name: MAR ADAME MRN: [id number] date: 1965 Sex: F Assigned Patient Location: ER Current Patient Location: ER Accession/Order Number: [id number] Exam Date: 11/02/2023 18:15 Report Date: 11/02/2023 19:06 At the request of: ANALIA ZENDEJAS Procedure: CT abdomen pelvis wo con EXAM: CT abdomen pelvis wo con HISTORY: left flank pain COMPARISON: CT scans 03/16/2023 and earlier. . TECHNIQUE: CT abdomen pelvis without contrast. Axial scans with reformatted coronal and sagittal images. Individualized dose reduction used for this exam. FINDINGS: Lower chest: No acute process lower lung wang, no pleural effusion. ABDOMEN: Scattered diverticula left colon with pericolonic stranding inflammation mid descending colon to the lower descending colon and proximal sigmoid. No extraluminal gas/perforation or abscess. Consistent with mild uncomplicated diverticulitis. Separate area of colon involved compared to the findings of 03/16/2023. No acute abnormality elsewhere. Sigmoid colon diverticulosis without diverticulitis. No small bowel distention. Normal-appearing appendix right lower quadrant. Normal-appearing kidneys without renal or ureteral calculus or hydronephrosis. Normal-appearing liver, adrenal glands, pancreas and spleen. No free fluid in the abdomen. No ascites. No adenopathy. Previous cholecystectomy. Normal size aorta and IVC. Pelvis: No mass or adenopathy or free fluid. Pelvic colon diverticulosis without diverticulitis. No uterine or ductal pathology. Normal fluid in the bladder. MUSCULOSKELETAL: No suspicious focal bone lesion. Minimal fat-containing periumbilical hernia unchanged CT/CT abdomen pelvis wo con IMPRESSION: Mild uncomplicated diverticulitis mid and distal descending colon left flank and left lower quadrant. Involves a portion of colon more proximal than previous inflammatory process noted on CT 03/16/2023. Normal left kidney and ureter without ureteral calculus. Electronically authenticated by: TOHMPSON BARROS Date: 11/02/2023 19:06
[2023-11-02] MEDS: 0.9 % SODIUM CHLORIDE 1,000 ML 999 ML IV (18:28)
[2023-11-02] MEDS: KETOROLAC TROMETHAMINE 30 MG/ML VIAL 15 MG IVP (18:29)
[2023-11-02] MEDS: ONDANSETRON PF 4 MG/2 ML VIAL IV (18:29)
[2023-11-02 18:32] LABS: Alanine Aminotransferase 25 U/L (14-59); Albumin Globulin Ratio 0.9; Albumin Level 3.7 g/dL (3.4-5.0); Alkaline Phosphatase 81 U/L (46-116); Aspartate Amino Transferase 12 U/L (15-37); BUN Creatinine Ratio 18.6; Bilirubin Total 0.7 mg/dL (0.2-1.0); Calcium 9.3 mg/dL (8.5-10.1); Carbon Dioxide 29.6 mmol/L (21.0-32.0); Chloride 101 mmol/L (98-107); Estimated GFR (African America >60 (>=60); Estimated GFR (Non-African Ame >60 (>=60); Globulin 4.1 g/dL; Glucose 101 mg/dL (74-106); Potassium 3.6 mmol/L (3.5-5.1); Sodium 140 mmol/L (136-145); Total Protein 7.8 g/dL (6.4-8.2)
--- OUTSIDE RECORDS SUMMARY | 2023-11-02 18:46 | XMS_ITS | CCD ---
Author Organization [facility] Care Team Providers Care Commercial Construction Superintendent Name Role Phone Yesica Sunshine Unavailable LAURY, DR SERVANDO Barbour Admitting Unavailable FURLONG, DR SERVANDO Barbour Attending Unavailable FURLONG, DR SERVANDO Barbour Referring Unavailable FURLONG, DR SERVANDO Barbour Primary Care Unavailable FURLONG, DR SERVANDO Barbour Consulting Unavailable ELENA, PHILIP Admitting Unavailable ELENA, PHILIP Attending Unavailable FURLONG, DR SERVANDO Barbour Primary Care Unavailable LANEEBJANENE, DR YAW Sánchez Consulting Unavailable ELENA, PHILIP Consulting Unavailable KUNS, DR SERA Sánchez Admitting Unavailable KUNS, DR SERA Sánchez Attending Unavailable FURLONG, DR SERVANDO Barbour Primary Care Unavailable ORANGEBURG, DR JUSTINA Garcia Consulting Unavailable KUNS, DR SERA Sánchez Consulting Unavailable FURLONG, DR SERVANDO Barbour Admitting Unavailable FURLONG, DR SERVANDO Barbour Attending Unavailable FURLONG, DR SERVANDO Barbour Primary Care Unavailable María Hager Unavailable Justina Valdez MD Primary Care Provider [phone] JUSTINA VALDEZ Attending Unavailable DEFRANCE, JUSTINA Feliciano Referring Unavailable DEFRANCE, JUSTINA Feliciano Primary Care Unavailable DEFRANCE, JUSTINA Feliciano Attending Unavailable DEFRANCEJUSTINA Referring Unavailable DEFRANCE, JUSTINA Feliciano Primary Care Unavailable DEFRANCE, JUSTINA Feliciano Referring Unavailable DEFRANCE, JUSTINA Feliciano Primary Care Unavailable DEFRANCEJUSTINA Referring Unavailable DEFRANCE, JUSTINA Feliciano Primary Care Unavailable DEFRANCEJUSTNIA Referring Unavailable DEFRANCEJUSTINA Primary Care Unavailable DEFRANCEJUSTINA Referring Unavailable DEFRANCEJUSTINA Primary Care Unavailable Allergies Allergy Classification Reported Allergen(s) Allergy Type Date of Onset Reaction(s) Facility (3 sources) Amoxicillin Drug Allergy rash [facility] Other (3 sources) Penicillin G Drug Allergy rash fav[facility]or[facility]it Other (1 source) Iodine (And Iodine Containting Drugs) Drug allergy (disorder) [facility] Repository (3 sources) Penicillins; Translations: [PENICILLINS] Drug allergy (disorder) 3 [facility] Repository (2 sources) Penicillins Propensity to adverse reactions to drug 0 Rash [facility] (4 sources) Iodinated Contrast Media; Translations: [IODINATED CONTRAST MEDIA] Propensity to adverse reactions to drug 0 Hives, Other (See Comments) [facility] Work Phone: Medications Current Medications Medication Drug Class(es) Dates Sig (Normalized) Sig (Original) [id number] 200 actuat albuterol 0.09 mg/actuat metered dose inhaler (1 source) beta2-Adrenergic Agonist Start: 3 take 2 puff(s) by inhalation every four hours as needed Albuterol Sulfate HFA 108 (90 Base) MCG/ACT 2 puffs as needed Inhalation every 4 hrs Aug, Active ascorbic acid 250 mg oral tablet (2 sources) Vitamin C Start: 2 take 1 tablet by mouth in the morning ascorbic acid, vitamin C, (vitamin C) 250 mg tablet Take 1 tablet (250 mg total) by mouth in the morning. 90 tablet 3 06/21/2022 Active BENEFIBER, WHEAT DEXTRIN, ORAL (2 sources) BENEFIBER, WHEAT DEXTRIN, ORAL Take by mouth. 0 Active cholecalciferol 0.125 mg oral capsule (2 sources) Vitamin D take 1 capsule by mouth once daily cholecalciferol, vitamin D3, (VITAMIN D3) 5,000 units capsule cholecalciferol (vitamin D3) 125 mcg (5,000 unit) capsule take 1 capsule by mouth once daily 0 Active cyclobenzaprine hydrochloride 10 mg oral tablet (4 sources) Muscle Relaxant Start: 3 End: 4 take 1 tablet by mouth once daily cyclobenzaprine (FLEXERIL) 10 mg tablet Take 1 tablet (10 mg total) by mouth nightly. 30 tablet 1 09/29/2023 Active dextromethorphan hydrobromide 1.5 mg/ml / pyrilamine maleate 1.5 mg/ml oral solution (1 source) Uncompetitive I-toxoak-F-asparta te Receptor Antagonist, Sigma-1 Agonist Start: 3 Rusk DM 7.5-7.5 MG/5ML 10 ml Orally every 6-8 hours as needed for 8 days Aug, Active fexofenadine hydrochloride 180 mg oral tablet (2 sources) Histamine-1 Receptor Antagonist Start: 2 take 1 tablet by mouth in the morning fexofenadine (NORBERTO) 180 mg tablet Indications: Allergic rhinitis Take 1 tablet (180 mg total) by mouth in the morning. 30 tablet 2 06/21/2022 Active hydrocortisone 25 mg/ml topical cream (2 sources) Corticosteroid Start: 3 hydrocortisone (HYTONE) 2.5 % cream Indications: Eczema, unspecified type Apply topically as needed for rash (rash). 30 g 5 04/04/2023 Active lactobacillus acidophilus [id number] unt / pectin 100 mg oral tablet (2 sources) acidophilus-pect in, citrus 25 million cell -100 mg tablet Take by mouth 3 (three) times a day with meals. 0 Active meloxicam 15 mg oral tablet (3 sources) Nonsteroidal Anti-inflammatory Drug Start: 3 End: 4 take 1 tablet by mouth in the morning meloxicam (MOBIC) 15 mg tablet Take 1 tablet (15 mg total) by mouth in the morning. 30 tablet 1 09/29/2023 Active methylPREDNISolone 4 mg oral tablet (1 source) Corticosteroid Start: 3 methylPREDNISolone 4 MG as directed Orally Once a day for 6 days Aug, Active minocycline 100 mg oral capsule (2 sources) Tetracycline-class Drug Start: 3 End: 4 minocycline (MINOCIN,DYNACIN) 100 mg capsule minocycline 100 mg capsule Strength: 100 mg daily 90 capsule 3 09/06/2022 09/06/2023 Active Minocycline Acti ve NON FORMULARY (2 sources) NON FORMULARY Magnesium 0 Active ondansetron 4 mg disintegrating oral tablet (2 sources) Serotonin-3 Receptor Antagonist Start: 11-16-19 23 take 1 tablet by mouth every eight hours as needed for nausea and vomiting ondansetron ODT (ZOFRAN ODT) 4 mg disintegrating tablet Dissolve 1 tablet (4 mg total) on tongue every 8 (eight) hours as needed for nausea or vomiting. 20 tablet 0 11/15/2022 Active predniSONE 10 mg oral tablet (1 source) Start: 09-02-19 End: 09-10-19 take 6 tablets by mouth once daily, then take 1 tablet by mouth once daily at mealtime predniSONE (STERAPRED DS) 10 mg tablet pack Take by mouth daily for 8 days. 6 tabs qd x 3 d then 1 less each day with food 33 tablet 0 09/02/2023 09/10/2023 Active Turmeric extract (2 sources) take 3 tablets by mouth once daily TURMERIC ORAL Take by mouth. 3 tabs once a day 0 Active Vitamin D (1 source) Vitamin D Active Problems Active Problems Problem Classification Problem Date Documented Date Episodic/Chronic Chronic obstructive pulmonary disease and bronchiectasis (1 source) Bronchitis, not specified as acute or chronic Episodic Diverticulosis and diverticulitis (2 sources) Diverticular disease; Translations: [Diverticulosis of intestine, part unspecified, without perforation or abscess without bleeding] Onset: 05-25-2016 05-18-2022 Chronic Genitourinary congenital anomalies (2 sources) Congenital hydronephrosis; Translations: [Congenital hydronephrosis] Onset: 07-07-2020 07-07-2020 Chronic Mood disorders (2 sources) Depressive disorder; Translations: [Depressive disorder] Onset: 05-25-2016 05-18-2022 Chronic Nutritional deficiencies (6 sources) Vitamin D deficiency, unspecified; Translations: [Vitamin D deficiency] Onset: 10-25-2018 Chronic Other inflammatory condition of skin (2 sources) Rosacea; Translations: [Rosacea, unspecified] Onset: 05-18-2022 05-18-2022 Chronic Other nervous system disorders (2 sources) Tarsal tunnel syndrome; Translations: [Tarsal tunnel syndrome, unspecified lower limb] Onset: 05-25-2016 05-18-2022 Chronic Other nervous system disorders (1 source) Thoracic outlet syndrome; Translations: [Brachial plexus disorders] 09-29-2023 Chronic Other nervous system disorders (2 sources) Brachial plexus disorders; Translations: [Brachial plexus disorders] Onset: 09-23-2023 Chronic Other nutritional; endocrine; and metabolic disorders (2 sources) Morbid obesity; Translations: [Morbid (severe) obesity due to excess calories] Onset: 06-21-2022 06-21-2022 Chronic Other screening for suspected conditions (not mental disorders or infectious disease) (5 sources) Encounter for screening mammogram for malignant neoplasm of breast; Translations: [ENC SCR MAMMO MALIG NEOPLASM BREAST] Onset: 12-15-2021 Episodic Other upper respiratory disease (2 sources) Allergic rhinitis; Translations: [Allergic rhinitis, unspecified] Onset: 05-25-2016 05-18-2022 Chronic Other upper respiratory disease (2 sources) Seasonal allergy; Translations: [Other seasonal allergic rhinitis] 09-06-2022 Chronic Spondylosis; intervertebral disc disorders; other back problems (4 sources) Degeneration of lumbar intervertebral disc; Translations: [Other intervertebral disc degeneration, lumbar region] Onset: 05-25-2016 09-02-2023 Chronic Spondylosis; intervertebral disc disorders; other back problems (1 source) Backache Onset: 09-02-2023 Episodic Past or Other Problems Problem Classification Problem Date Documented Date Episodic/Chronic Allergic reactions (4 sources) Dermatographic urticaria; Translations: [Dermatographic urticaria] Onset: 06-21-2022 06-21-2022 Episodic Mood disorders (2 sources) Mood disorders Onset: 09-02-2023 Resolved: 09-29-2023 09-02-2023 Other and unspecified benign neoplasm (2 sources) History of polyp of colon; Translations: [Personal history of colonic polyps] Onset: 11-15-2022 11-15-2022 Episodic Other connective tissue disease (4 sources) Enthesopathy, unspecified; Translations: [ENTHESOPATHY UNSPECIFIED] Onset: 02-02-2022 Episodic Other skin disorders (2 sources) Acne; Translations: [Acne, unspecified] Onset: 05-25-2016 05-18-2022 Episodic Other upper respiratory infections (1 source) Acute pharyngitis, unspecified; Translations: [Sore throat J02.9] Onset: 05-16-2021 Resolved: 05-16-2021 Episodic Unclassified (1 source) Acute cough R05.1 Results Test Name Value Interpretation Reference Range Facility MAMM SCREENING BILATERAL W C toe puncher 10-19-2023 MAMM SCREENING BILATERAL W CAD MAMM SCREENING BILATERAL W CAD EXAM: MAMM SCREENING BILATERAL W CAD, 10/19/2023 7:47 AM CLINICAL INDICATIONS: Screening, Encounter for screening mammogram for malignant neoplasm of breast COMPARISON: 10/01/2022 TECHNIQUE: Bilateral digital tomosynthesis MLO and CC views of the breasts were obtained, with creation of synthetic 2D views. Computer aided detection was utilized. FINDINGS: There are scattered areas of fibroglandular density. There are no suspicious masses, calcifications, or areas of architectural distortions. IMPRESSION: No mammographic evidence of malignancy. BI-RADS: BI-RADS 1 - Negative Recommendation: Routine screening mammogram in 1 year. Finalized by Manjeet Johnston MD on 10/19/2023 8:41 AM 1 b MAMM 1 YR Normal [facility] COVID/FLU/RSV RT-PCRon 09-09 SARS-CoV-2 (COVID-19) RNA NAVEEN+probe Ql (Unsp spec) Negative [facility] Other COVID/FLU/RSV RT-PCR Negative [facility] Other VITAMIN D 25 OHon 06-22-2022 VIT D 25-OH 37.8 ng/mL Normal [facility] Comment on above: Performed By: #### V ITAD #### [facility] [address] [place] [address] Dr. Vasquez Phillips VIT D RANGES SEE BELOW Normal [facility] Comment on above: Result Comment: <20 ng/mL Vit D deficient 20 - <30 ng/mL Vit D insufficient 30 - 100 ng/mL Vit D sufficient >100 ng/mL Potential Toxicity Performed By: #### V ITAD #### [facility] [address] [place] [address] Dr. Vasquez Phillips MG MAMM SCREEN 3D NORM CADon 12-15-2021 MG MAMM SCREEN 3D NORM CAD Patient: MAR GRAY Exam Date: 12/15/2021 : 1965 Gender:F Ordering : PHILIP PARKER Admission #: [id number] Family : Order #: [id number] CLICK HERE TO VIEW EXAM RADIOLOGY REPORT PROCEDURE: MAMMOGRAM SCREENING 3D BILATERAL CAD COMPARISON: MG MAMM NORM SCRN W CAD DIG, 09/16/2014. MG MAMM SCREEN NORM W CAD, 01/30/2018. INDICATIONS: Screening mammography Calculator Name NCI Breast Cancer Risk Assessment Tool 5 Year Breast Cancer Risk 0.80% Lifetime Breast Cancer Risk 5.30% Personal Breast Cancer No Personal Ovarian Cancer No Treatments None Family Cancers None LOCATION: [facility] BREAST COMPOSITION: Scattered areas fibroglandular density. FINDINGS: DIAGNOSTIC CATEGORY 1--NEGATIVE. RIGHT BREAST: No significant suspicious finding. No significant change has occurred. LEFT BREAST: No significant suspicious finding. No significant change has occurred. RECOMMENDATIONS: ROUTINE MAMMOGRAM AND CLINICAL EVALUATION IN 12 MONTHS. PLEASE NOTE: A NORMAL MAMMOGRAM DOES NOT EXCLUDE THE POSSIBILITY OF BREAST CANCER. A CLINICALLY SUSPICIOUS PALPABLE LUMP SHOULD BE BIOPSIED. Dictated by: Yaw Baez M.D. on 12/16/2021 at 08:09 Approved by: Yaw Baez M.D. on 12/16/2021 at 08:11 Normal [facility] IMAGE-GUIDED PAP W/AGE BASED SCR PROTOCOLSon 07-14-2021 COMMENT Normal [facility] Comment on above: Order Comment: SPLIT 07/09/2021 FROM [id number] Result Comment: This order for age-based cervical cancer and STI screening follows ACOG guidelines(PB 168, 140, QAX429). See individual assays for performing site location. Performed By: #### 9 2797, [id number] #### [facility]-[address] Finding Fastener: Beka Chicas MD Result Comment: EXPL ANATORY NOTE: The Pap is a screening test for cervical cancer. It is not a diagnostic test and is subject to false negative and false positive results. It is most reliable when a satisfactory sample, regularly obtained, is submitted with relevant clinical findings and history, and when the Pap result is evaluated along with historic and current clinical information. THINPREP TIS PAP AND HPV mRN A E6/E7 WITH REFLEX TO HPV 16,18/45on 07-14-2021 CLINICAL INFORMATION: Normal [facility] Comment on above: Result Comment: None given Performed By: #### 9 6231, 06257 #### [facility] [place] [address] Finding Fastener: Beka Chicas MD COMMENT: Normal [facility] Comment on above: Result Comment: This case could not be evaluated with computer assisted technology. The slide was manually screened according to routine procedures. Performed By: #### 9 8373, 53888 #### [facility]-[address], [address] [place] [address] Finding Fastener: Beka Chicas MD RIVET MACHINE OPERATOR: [facility] Comment on above: Result Comment: LAURA CT(ASCP) CT screening location: [place] [address]. Performed By: #### 9 9610, 71431 #### [facility]-[place] [address] Finding Fastener: Beka Chicas MD HPV mRNA E6/E7 Not detected Normal Not Detected [facility] Comment on above: Result Comment: Meth odology: Playground Monitor-Mediated Amplification This assay detects E6/E7 viral messenger RNA (mRNA) from 14 high-risk HPV types (16,18,31,33,35,39,45,51,52,56,58,59,66,68). The analytical performance characteristics of this assay have been determined by [facility]. The modifications have not been cleared or approved by the FDA. This assay has been validated pursuant to the CLIA regulations and is used for clinical purposes. For additional information, please refer to http://education.[employer].Qwaq/faq/LQU306z2 (This link if provided for information/ educational purposes only.) Performed By: #### 9 4947, 36905 #### [facility]-[place] [address] Finding Fastener: Beka Chicas MD INTERPRETATION/RESU LT: Normal [facility] Comment on above: Result Comment: Nega tive for intraepithelial lesion or malignancy. Performed By: #### 9 6664, 79781 #### [facility]-[address], [address] [place] [address] Finding Fastener: Beka Chicas MD LMP: Normal [facility] Comment on above: Result Comment: NONE GIVEN Performed By: #### 9 1414, 98334 #### [facility]-[address], [address] [place] [address] Finding Fastener: Beka Chicas MD PREV. BX: Normal [facility] Comment on above: Result Comment: NONE GIVEN Performed By: #### 9 1414, 82955 #### [facility]-[address], [address] [place] [address] Finding Fastener: Beka Chicas MD PREV. PAP: Normal [facility] Comment on above: Result Comment: NONE GIVEN Performed By: #### 9 1414, 43388 #### [facility]-[address], [address] [place] [address] Finding Fastener: Beka Chicas MD SOURCE: Normal [facility] Comment on above: Result Comment: Vagi na Performed By: #### 9 1414, 19201 #### [facility]-[address], [address] [place] [address] Finding Fastener: Beka Chicas MD STATEMENT OF ADEQUACY: Normal [facility] Comment on above: Result Comment: SATI SFACTORY FOR EVALUATION Performed By: #### 9 1414, 68230 #### [facility], [address] [place] [address] Finding Fastener: Beka Chicas MD COMPREHENSIVE METABOLIC PANE [facility] 07-10-2021 Albumin [Mass/Vol] 4.4 g/dL Normal 3.6-5.1 [facility] Comment on above: Performed By: #### 3 5199, 27974, 89205, 28477, 7600 #### [facility] [address], [address] [place] [address] Finding Fastener: Beka Chicas MD Albumin/Globulin [Mass ratio] 1.6 {ratio} Normal 1.0-2.5 [facility] Comment on above: Performed By: #### 3 4499, 15713, 79771, 67710, 7600 #### [facility] [address], [address] [place] [address] Finding Fastener: Beka Chicas MD ALP [Catalytic activity/Vol] 60 U/L Normal 37-153 [facility] Comment on above: Performed By: #### 3 4499, 90486, 58296, 63791, 7600 #### [facility] of [address], [address] [place] [address] Finding Fastener: Beka Chicas MD ALT [Catalytic activity/Vol] 16 U/L Normal 6-29 [facility] Comment on above: Performed By: #### 3 4499, 27277, 44915, 40531, 7600 #### [facility] of [address], [address] [place] [address] Finding Fastener: Beka Chicas MD AST [Catalytic activity/Vol] 18 U/L Normal 10-35 [facility] Comment on above: Performed By: #### 3 4499, 34290, 64265, 29700, 7600 #### [facility] of [address], [address] [place] [address] Finding Fastener: Beka Chicas MD Bilirubin [Mass/Vol] 0.4 mg/dL Normal 0.2-1.2 [facility] Comment on above: Performed By: #### 3 4499, 89961, 61980, 62532, 7600 #### [facility] of [address], [address] [place] [address] Finding Fastener: Beka Chicas MD BUN/CREATININE RATIO NOT APPLICABLE Normal 6-22 [facility] Comment on above: Performed By: #### 3 4499, 90745, 29919, 56466, 7600 #### [facility] of [address], [address] [place] [address] Finding Fastener: Beka Chicas MD Calcium [Mass/Vol] 9.5 mg/dL Normal 8.6-10.4 [facility] Comment on above: Performed By: #### 3 4499, 40778, 12698, 09204, 7600 #### [facility] [address], [address] [place] [address] Finding Fastener: Beka Chicas MD Chloride [Moles/Vol] 103 mmol/L Normal 98-110 [facility] Comment on above: Performed By: #### 3 4499, 88534, 12408, 24419, 7600 #### [facility] [address], [address] [place] [address] Finding Fastener: Beka Chicas MD CO2 [Moles/Vol] 26 mmol/L Normal 20-32 [facility] Comment on above: Performed By: #### 3 4499, 20409, 64194, 25009, 7600 #### [facility] [address], [address] [place] [address] Finding Fastener: Beka Chicas MD Creatinine [Mass/Vol] 0.85 mg/dL Normal 0.50-1.05 [facility] Comment on above: Result Comment: For patients >49 years of age, the reference limit for Creatinine is approximately 13% higher for people identified as -Finnish. Performed By: #### 3 4499, 68398, 23796, 10975, 7600 #### [facility] [place] [address] Finding Fastener: Beka Chicas MD eGFR NON-AFR. TURKISH 77 mL/min/1.73m2 Normal > OR = 60 [facility] Comment on above: Performed By: #### 3 4499, 16142, 50593, 43222, 7600 #### [facility] [address], [address] [place] [address] Finding Fastener: Beka Chicas MD GFR/1.73 sq M.predicted among blacks MDRD (S/P/Bld) [Vol rate/Area] 89 mL/min/{1.73_m2} Normal > OR = 60 [facility] Comment on above: Performed By: #### 3 4499, 71018, 17959, 53043, 7600 #### [facility] [place] [address] Finding Fastener: Beka Chicas MD Globulin (S) [Mass/Vol] 2.7 g/dL Normal 1.9-3.7 [facility] Comment on above: Performed By: #### 3 4499, 38810, 09802, 57847, 7600 #### [facility] [place] [address] Finding Fastener: Beka Chicas MD Glucose [Mass/Vol] 95 mg/dL Normal 65-99 [facility] Comment on above: Result Comment: Fasting reference interval Performed By: #### 3 4499, 12337, 60113, 56438, 7600 #### [facility] [place] [address] Finding Fastener: Beka Chicas MD Potassium [Moles/Vol] 4.2 mmol/L Normal 3.5-5.3 [facility] Comment on above: Performed By: #### 3 4499, 96256, 87150, 17445, 7600 #### [facility] [place] [address] Finding Fastener: Beka Chicas MD Protein [Mass/Vol] 7.1 g/dL Normal 6.1-8.1 [facility] Comment on above: Performed By: #### 3 4499, 34478, 53406, 57190, 7600 #### [facility] [place] [address] Finding Fastener: Beka Chicas MD Sodium [Moles/Vol] 137 mmol/L Normal 135-146 [facility] Comment on above: Performed By: #### 3 4499, 58655, 31765, 10305, 7600 #### [facility] of [place] [address] Finding Fastener: Beka Chicas MD Urea nitrogen [Mass/Vol] 18 mg/dL Normal 7-25 [facility] Comment on above: Performed By: #### 3 4499, 31492, 52043, 69639, 7600 #### [facility] [address], [address] [place] [address] Finding Fastener: Beka Chicas MD LIPID PANEL, [facility] 12- Cholesterol [Mass/Vol] 160 mg/dL Normal <200 [facility] Comment on above: Order Comment: [facility]: NURSE COLLECTED - NO SPECIMEN PROVIDED. Performed By: #### 3 4499, 10826, 56778, 68774, 7600 #### [facility] [address], [address] [place] [address] Finding Fastener: Beka Chicas MD Cholesterol in HDL [Mass/Vol] 52 mg/dL Normal > OR = 50 [facility] Comment on above: Order Comment: LT O NLY: NURSE COLLECTED - NO SPECIMEN PROVIDED. Performed By: #### 3 4499, 57740, 42564, 14677, 7600 #### [facility] [address], [address] [place] [address] Finding Fastener: Beka Chicas MD Cholesterol in LDL [Mass/Vol] 88 mg/dL Normal [facility] Comment on above: Order Comment: [facility]: NURSE COLLECTED - NO SPECIMEN PROVIDED. Result Comment: Refe rence range: <100 Desirable range <100 mg/dL for primary prevention; <70 mg/dL for patients with CHD or diabetic patients with > or = 2 CHD risk factors. LDL-C is now calculated using the Landen-Fer calculation, which is a validated novel method providing better accuracy than the Friedewald equation in the estimation of LDL-C. Landen HERNANDEZ et al. DURGA. 2013;310(19): 1234-9645 (http://education.[employer].Qwaq/faq/OWK813) Performed By: #### 3 4499, 62817, 68230, 71446, 7600 #### [facility] [address], [address] [place] [address] Finding Fastener: Beka Chicas MD Cholesterol.total/C holesterol in HDL [Mass ratio] 3.1 {ratio} Normal <5.0 [facility] Comment on above: Order Comment: LT O NLY: NURSE COLLECTED - NO SPECIMEN PROVIDED. Performed By: #### 3 4499, 24027, 51314, 99591, 7600 #### [facility] [address], [address] [place] [address] Finding Fastener: Beka Chicas MD NON HDL CHOLESTEROL 108 mg/dL (calc) Normal <130 [facility] Comment on above: Order Comment: LT O NLY: NURSE COLLECTED - NO SPECIMEN PROVIDED. Result Comment: For patients with diabetes plus 1 major ASCVD risk factor, treating to a non-HDL-C goal of <100 mg/dL (LDL-C of <70 mg/dL) is considered a therapeutic option. Performed By: #### 3 4499, 41365, 45766, 36696, 7600 #### [facility] [address], [address] [place] [address] Finding Fastener: Beka Chicas MD Triglyceride [Mass/Vol] 103 mg/dL Normal <150 [facility] Comment on above: Order Comment: [facility]: NURSE COLLECTED - NO SPECIMEN PROVIDED. Performed By: #### 3 [id number], [id number], [id number], 34115, 7600 #### [facility] [place] [address] Finding Fastener: Beka Chicas MD SARS COV 2 AB (IGG) SPIKE, S [place] QNon 07-10-2021 SARS-CoV-2 (COVID-19) Ab IA Qn 5.30 index High <1.00 [facility] Comment on above: Result Comment: This test is intended to help identify individuals with antibodies to SARS-CoV-2 (COVID-19). The results of this semi-quantitative test should not be interpreted as an indication or degree of immunity or protection from reinfection. A test result that is 1.00 or more (Positive) means antibodies to SARS-CoV-2 were detected in the blood sample by the test. This could mean that the individual may have an immune response to a recent or prior infection with SARS-CoV-2. Positive results may occur after COVID-19 vaccination, but the clinical significance of a positive antibody result for individuals that have received a COVID-19 vaccine is unknown, and the performance of the test has not been established in COVID-19 vaccinees. False positive results for the test may occur due to cross-reactivity from pre-existing antibodies or other possible causes. A test result that is less than 1.00 (Negative) means that antibodies were not detected in the blood sample by the test. This could mean that the individual has not been previously infected with SARS-CoV-2. The clinical significance of a negative antibody result for individuals that have received a COVID-19 vaccine is unknown. The performance of the test has not been established in COVID-19 vaccinees. False negative results for the test may occur if the individual's antibodies have not reached a sufficient level for the test to be able to detect them. Antibodies can take up to two to three weeks (sometimes longer) to develop after someone is infected. How long antibodies to SARS-CoV-2 last after infection is not known. This test should not be used to diagnose an active SARS-CoV-2 infection. If an active infection is suspected, direct molecular or antigen testing for SARS-CoV-2 is recommended. Please review the Fact Sheets available for healthcare providers and patients using the following websites: http://patient.[employer].com/[facility]ellica-HCP http://patient.[email or web address]/Atellica-Patients Healthcare Providers: For additional information please refer to: http://education.Newtopia.com/faq/CTX374 (This link is being provided for informational/educational purposes only.) This test has been authorized by the FDA under an Emergency Use Authorization (EUA) for use by authorized laboratories. The FDA authorized labeling is available on the [employer] website: www.[employer].Qwaq/Covid19. Performed By: #### 3 4499, 50103, 87067, 00754, 2600 #### [facility] [address], [address] [place] [id number] Finding Fastener: Beka Chicas MD TSH+FREE T4on 07-10-2021 Free T4 [Mass/Vol] 1.1 ng/dL Normal 0.8-1.8 [facility] Comment on above: Performed By: #### 3 [id number], 97422, 99700, 92222, 7600 #### [facility] [address], [address] [place] [address] Finding Fastener: Beka Chicas MD TSH Qn 0.87 m[IU]/L Normal 0.40-4.50 [facility] Comment on above: Performed By: #### 3 [id number], 81603, 05128, 17690, 7600 #### [facility] [address], [address] [place] [address] Finding Fastener: Beka Chicas MD VITAMIN D,25-OH,TOTAL,IAon 1 09-10-2020 VITAMIN D,25-OH,TOTAL,IA 41 ng/mL Normal 30-100 [facility] Comment on above: Result Comment: Sandra min D Status 25-OH Vitamin D: Deficiency: <20 ng/mL Insufficiency: 20 - 29 ng/mL Optimal: > or = 30 ng/mL For 25-OH Vitamin D testing on patients on D2-supplementation and patients for whom quantitation of D2 and D3 fractions is required, the QuestAssureD(TM) 25-OH VIT D, (D2,D3), LC/MS/MS is recommended: order code 14074 (patients >2yrs). See Note 1 Note 1 For additional information, please refer to http://education.Lin[employer]/faq/QTR673 (This link is being provided for informational/ educational purposes only.) Performed By: #### 3 [id number], 07299, 36777, 88790, 7600 #### [facility] [address], [address] [place] [address] Finding Fastener: Beka Chicas MD Throat Cultureon 05-16-2021 Throat culture Respiratory Results Moderate Normal Respiratory Peyton 2 Days PERFORMED BY: [place] [id number] PATHOLOGIST ACADEMIC TUTOR BRIDGET SANTIAGO M.D. [facility] Comment on above: Performed By: #### C CA #### [address] Vital Signs Date Time Vital Sign Value Performing Clinician Facility 09-29-2023 15:49-0500 Body height 163.8 cm Justina Valdez MD Work Phone: [facility] 09-29-2023 15:49-0500 Body mass index (BMI) [Ratio] 42.25 kg/m2 Justina Valdez MD Work Phone: [facility] 09-29-2023 15:49-0500 Body weight 113.4 kg Justina Valdez MD Work Phone: [facility] 09-29-2023 15:49-0500 Diastolic blood pressure 84 mm[Hg] Justina Valdez MD Work Phone: [facility] 09-29-2023 15:49-0500 Heart rate 80 /min Justina Valdez MD Work Phone: [facility] 09-29-2023 15:49-0500 Respiratory rate 16 /min Justina Valdez MD Work Phone: [facility] 09-29-2023 15:49-0500 Systolic blood pressure 138 mm[Hg] Justina Valdez MD Work Phone: [facility] 09-02-2023 08:09-0500 Body height 163.8 cm Justina Valdez MD Work Phone: [facility] 09-02-2023 08:09-0500 Body mass index (BMI) [Ratio] 42.17 kg/m2 Justina Valdez MD Work Phone: [facility] 09-02-2023 08:09-0500 Body weight 113.17 kg Justina Valdez MD Work Phone: [facility] 09-02-2023 08:09-0500 Diastolic blood pressure 80 mm[Hg] Justina Valdez MD Work Phone: [facility] 09-02-2023 08:09-0500 Heart rate 80 /min Justina Valdez MD Work Phone: [facility] 09-02-2023 08:09-0500 Respiratory rate 16 /min Justina Valdez MD Work Phone: [facility] 09-02-2023 08:09-0500 Systolic blood pressure 140 mm[Hg] Justina Valdez MD Work Phone: [facility] 09-09-2022 16:50-0500 Body height 162.56 cm María Mendezault Other [facility] Other 09-09-2022 16:50-0500 Body temperature 99 [degF] María Mendezault Other [facility] Other 09-09-2022 16:50-0500 SaO2% (BldA) [Mass fraction] 98 % María Mendezault Other [facility] Other 05-16-2021 11:00-0400 Body height 162.56 cm Yesica Ginty Other [facility] Other 05-16-2021 11:00-0400 Body mass index (BMI) [Ratio] 37.76 kg/m2 Yesica Ginty Other [facility] Other 05-16-2021 11:00-0400 Body temperature 97.1 [degF] Yesica Ginty Other [facility] Other 05-16-2021 11:00-0400 Body weight 99.79 kg Yesica Ginty Other [facility] Other 05-16-2021 11:00-0400 SaO2% (BldA) [Mass fraction] 96 % Yesica Ginty Other [facility] Other Encounters Encounter Date Encounter Type Care Provider Facility Start: 10-19-2023 End: 10-20-2023 ambulatory JUSTINA T [facility] Start: 09-29-2023 End: 09-29-2023 ambulatory [facility] Start: 09-29-2023 End: 09-29-2023 Office outpatient visit 15 minutes Justina Valdez MD Work Phone: [facility] Comment on above: TOS (thoracic outlet syndrome) (Primary Dx) Start: 09-23-2023 End: 10-24-2023 ambulatory [facility] Start: 09-02-2023 End: 09-02-2023 ambulatory [facility] Start: 09-02-2023 End: 09-02-2023 Office outpatient visit 15 minutes Justina Valdez MD Work Phone: [facility] Comment on above: Lumbar degenerative disc disease (Primary Dx) Start: 08-25-2023 End: 09-23-2023 ambulatory [facility] Start: 08-04-2023 End: 08-25-2023 ambulatory [facility] Start: 09-09-2022 End: 09-09-2022 ambulatory María Hager Other [facility] Other Start: 09-09-2022 Office outpatient vi sit 15 minutes María Hager [facility] Start: 07-19-[address] SERVANDO SCHAEFFER Fac ility:[facility] Start: 06-22-2022 End: 06-23-[address] SERVANDO SCHAEFFER Facility:[facility] Start: 02-02-2022 End: 02-03-[address] SERA HINOJOSA Facility:[facility] Start: 12-15-2021 End: 12-16-2021 ambulatory PHILIP PARKER Facility:[facility] Start: 05-21-2021 Telephone encounter Yesica Sunshine [facility] Start: 05-16-2021 Office outpatient vi sit 15 minutes Yesica Sunshine [facility] Procedures Date Procedure Procedure Detail Performing Clinician Start: 09-29-2023 Follow-up visit Follow-up JUSTINA VALDEZ Start: 09-29-2023 Adult depression screening assessment Justina Valdez MD Work Phone: Start: 09-02-2023 Adult depression screening assessment Justina Valdez MD Work Phone: Throat culture Yesica Bita Other Plan of Treatment Date Care Activity Detail Author Start: 03-29-2027 DTaP,Tdap and Td Vaccines (2 - Td or Tdap) DTaP,Tdap and Td Vaccines (2 - Td or Tdap) [facility] Start: 09-28-2024 Adult BMI Screening Adult BMI Screening [facility] Start: 09-28-2024 Depression Screening Depression Screening [facility] Start: 09-28-2024 Tobacco Screening Tobacco Screening [facility] Start: 09-02-2024 Depression Screening Depression Screening [facility] Start: 09-02-2024 Tobacco Screening Tobacco Screening [facility] Start: 06-27-2024 Adult BMI Screening Adult BMI Screening [facility] Start: 03-06-2024 End: 03-06-2024 Patient encounter procedure 03/06/2024 4:15 PM EDT Office Visit [facility] [address] [place] [id number] Justina Valdez MD [address] [facility] [facility] [place], [place] [id number] [facility] Start: 03-25-2023 Influenza vaccination Influenza Vaccine [facility] Start: 2015 Administration of varicella zoster vaccine Zoster (Shingles) Vaccine (1 of 2) [facility] Start: 1986 Screening for malignant neoplasm of cervix Pap Smear [facility] Start: 1983 Adult BMI Follow Up Plan Adult BMI Follow Up Plan [facility] Start: 1983 Diabetic foot examination Diabetic Foot Exam [facility] Start: 1965 Glaucoma screening Diabetic Ophthalmology Exam [facility] Immunizations Immunization Date Immunization Notes Care Provider Fa cility 03-29-2017 tetanus toxoid, redu debbie diphtheria toxoid, and acellular pertussis vaccine, adsorbed Justina Valdez MD Work Phone: [facility] Payers Date Payer Category Payer Unknown [employer] BCBS OUT OF STATE PPO/TRUST [id number] 2021-Present [phone] [address] [place] [address] [id number] 1965 Unknown [id number] [id number]. 593 1965 Unknown [id number] 2.16.840.1.963104.3.579.2. 593 1965 Unknown [id number] 2.16.840.1.467770.3.579.2. 593 1965 Unknown [id number] 2.16.840.1.283557.3.579.2. 593 1965 Unknown [id number] 2.16.840.1.618974.3.579.2. 1286 1965 Unknown [id number] 2.16.840.1.627762.3.579.2. 1286 1965 Unknown [id number] 2.16.840.1.374077.3.579.2. 1286 1965 Unknown [id number] 2.16.840.1.975160.3.579.2. 1286 1965 Unknown [id number] 2.16.840.1.087741.3.579.2. 1286 1965 Unknown [id number] 2.16.840.1.815978.3.579.2. 1286 1959 Blue Cross Blue Shield [id number] [id number] 1959 Self-pay Social History Date Type Detail Facility Unknown if ever smoked [facility] Other Start: 06-21-2022 End: 09-29-2023 Sex Assigned At [facility] Other Start: 05-18-2022 Tobacco smoking status NHIS Ex-smoker [facility] End: 07-25-2012 History of tobacco use Current smoker [facility] End: 07-25-2012 History of tobacco use Cigarette Smoker [facility] Start: 05-18-2022 End: 06-21-2022 Cigarettes smoked current (pack per day) - Reported 1 [facility] Start: 05-18-2022 Tobacco use and exposure Smokeless tobacco non-user [facility] Start: 09-02-2023 End: 09-29-2023 Alcohol intake Current drinker of alcohol (finding) [facility] Do you belong to any clubs or organizations such as sikh groups, unions, fraternal or athletic groups, or school groups? Yes [facility] Are you now , , , , never or living with a partner? [facility] How often to you hav e a drink containing alcohol? Monthly or less [facility] How many standard dr inks containing alcohol do you have on a typical day? 1 or 2 [facility] How often do you hav e 6 or more drinks on 1 occasion? Never [facility] How hard is it for y ou to pay for the very basics like food, housing, medical care, and heating Not hard at all [facility] Do you feel stress - tense, restless, nervous, or anxious, or unable to sleep at night because your mind is troubled all the time - these days [OSQ] Not at all [facility] Start: 05-18-2022 Alcohol Comment rare-2 drinks/year [facility] [employer] Start: 1965 Sex Assigned At Not on file [facility] Clinical Notes 05-16-2021 to 09-29-2023 Justina Valdez MD - 09/29/2023 3:45 PM Kee Valdez MD - 09/02/2023 8:00 AM EST Note Date & Type Note Facility 09-29-2023 History of Present illness Narrative Images from the original note were not included. [address] [facility] [address] SUBJECTIVE: Patient ID: Mar Gray is a 58 y.o. female. 58 yo WF with no injury , TOS is not improving , PTx and prednisone helped , muscle relaxer was suspeneded but helped The following portions of the patient's history were reviewed and updated as appropriate: allergies, current medications, past family history, past medical history, past social history, past surgical history and problem list. REVIEW OF SYSTEMS: Review of Systems Musculoskeletal: Positive for back pain and neck pain. PHYSICAL EXAMINATION: Vitals: 09/29/23 1549 BP: 138/84 BP Site: Left Arm BP Postition: Sitting BP CUFF SIZE: M (9-13 inches) Pulse: 80 Resp: 16 Weight: 113.4 kg (250 lb) Height: 163.8 cm (5' 4.5 ) Physical Exam Vitals and nursing note reviewed. Constitutional: Appearance: Normal appearance. HENT: Head: Normocephalic and atraumatic. Eyes: Extraocular Movements: Extraocular movements intact. Pupils: Pupils are equal, round, and reactive to light. Cardiovascular: Rate and Rhythm: Normal rate and regular rhythm. Pulses: Normal pulses. Heart sounds: Normal heart sounds. Pulmonary: Effort: Pulmonary effort is normal. Breath sounds: Normal breath sounds. Skin: General: Skin is warm and dry. Neurological: General: No focal deficit present. Mental Status: She is alert and oriented to person, place, and time. Psychiatric: Mood and Affect: Mood normal. Behavior: Behavior normal. ASSESSMENT/PLAN: Mar was seen today for follow-up. Diagnoses and all orders for this visit: TOS (thoracic outlet syndrome) - Ambulatory referral to Orthopedic Surgery; Future Other orders - cyclobenzaprine (FLEXERIL) 10 mg tablet; Take 1 tablet (10 mg total) by mouth nightly. - meloxicam (MOBIC) 15 mg tablet; Take 1 tablet (15 mg total) by mouth in the morning. Follow-up: Refill mobic and flexeril each 1 qd Ortho referral [facility] History of Present illness Narrative Images from the original note were not included. [address] [facility] [address] SUBJECTIVE: Patient ID: Mar Gray is a 58 y.o. female. 58 yo WF with low back pain x 1 week - no injury, radiates to left buttock, The following portions of the patient's history were reviewed and updated as appropriate: allergies, current medications, past family history, past medical history, past social history, past surgical history and problem list. REVIEW OF SYSTEMS: Review of Systems Musculoskeletal: Positive for back pain. PHYSICAL EXAMINATION: Vitals: 09/02/23 0809 BP: 140/80 BP Site: Left Arm BP Postition: Sitting BP CUFF SIZE: L (13-17 inches) Pulse: 80 Resp: 16 Weight: 113.2 kg (249 lb 8 oz) Height: 163.8 cm (5' 4.5 ) Physical Exam Vitals and nursing note reviewed. Constitutional: Appearance: Normal appearance. HENT: Head: Normocephalic and atraumatic. Eyes: Extraocular Movements: Extraocular movements intact. Pupils: Pupils are equal, round, and reactive to light. Musculoskeletal: Comments: SL positive at 45 degrees left, seated leg raise was nl, tenderness at the low lumbar spine, rom was painful Skin: General: Skin is warm and dry. Neurological: General: No focal deficit present. Mental Status: She is alert and oriented to person, place, and time. Psychiatric: Mood and Affect: Mood normal. Behavior: Behavior normal. ASSESSMENT/PLAN: Mar was seen today for back pain. Diagnoses and all orders for this visit: Lumbar degenerative disc disease - [facility] [place], [place]; Future Other orders - cyclobenzaprine (FLEXERIL) 10 mg tablet; Take 1 tablet (10 mg total) by mouth nightly. - predniSONE (STERAPRED DS) 10 mg tablet pack; Take by mouth daily for 8 days. 6 tabs qd x 3 d then 1 less each day with food Follow-up: Hold meloxicam x 8d then reume Prednisone and flexeril ptx documented in this encounter [facility] 09-09-2022 Evaluation note Encounter Date Diagnosis Assessment Notes Aug, Acute cough (ICD-10 - R05.1) 16 Aug, 2022 Bronchitis (ICD-10 - J40) Take medications as directed. Rest and increase fluid intake. Take meds with food to prevent stomach upset. Use inhaler as needed for coughing spells and SOB. It is better to use inhaler a few times a day over the next 2-3 days. Follow up with primary care provider if symptoms do not improve with treatment plan, although it may take a few weeks for the cough to go away [facility] Other 07-12-2022 NotePROCEDURE: XR FINGER MIN 2 VIEWS COMPARISON: None. HISTORY: Enthesopathy FINDINGS: BONES:No fracture, acute abnormality, or significant arthropathy. SOFT TISSUES:Soft tissue swelling of the third finger EFFUSION:None visible. OTHER: Negative. IMPRESSION: Soft tissue swelling. No acute fracture or significant degenerative changes of the right third finger Electronically authenticated by: JUSTINA TIMMONS Date: 2022-02-02 19:24[facility]10-23-[facility]21 Evaluation note* Encounter Date Diagnosis Assessment Notes Treatment Notes Treatment Clinical Notes Apr, Sore throat (ICD-10 - J02.9) Advised patient that Strep test in office was negative. No signs of strep noted on exam. Will send for throat culture. Advised patient that we will call with results of culture in 2-5 days. May use OTC cold medications, throat lozenges, Tylenol/Ibuprofen, salt water gargles, hot tea with honey for relief. Immediate evaluation in ER for warning signs/symptoms as discussed. Patient verbalizes understanding and is agreeable with treatment plan [facility] Other Evaluation noteNo InformationNort SunFunder Other Evaluation note* Diagnosis Lumbar degenerative disc disease- Primary documented in this encounter [facility]* Diagnosis TOS (thoracic outlet syndrome)- Primary Brachial plexus lesions documented in this encounter [facility] general Narrative - Reported* Type Description Date Surgical History C section x4 Surgical History cholecystectomy Hospitalization History see above [facility] Other InstructionsNot on filedocumented in this encounter [facility]* Attachments The following attachments cannot be sent through Care Everywhere. * Thoracic Outlet Syndrome Exercises (Japanese) [facility] Consultation (Routine) - Authorized Specialty Diagnoses / Procedures Referred By Raquel feliciano Referred To Contact Rehabilitation Diagnoses Lumbar degenerative disc disease Justina Valdez MD [address] [place] [address] [facility] [address] [place] [address] Referral ID Status Reason Start Date Expiration Date Visits Requested Visits Authorized [id number] Authorized Specialty Services Required 09/02/2023 09/01/2024 1 1 Scheduling Instructions Eval and tx low back issues twice a weekx 4-6 weeks and home exercise program [facility] ([facility] Consultation (Routine) - Authorized Specialty Diagnoses / Procedures Referred By Raquel feliciano Referred To Contact Orthopedic Surgery Diagnoses TOS (thoracic outlet syndrome) Justina Valdez MD [address] [place] [address] Rajendra Hernandez MD [address] [place] [id number] Referral ID Status Reason Start Date Expiration Date Visits Requested Visits Authorized [id number] Authorized Specialty Services Required 09/29/2023 09/28/2024 1 1 RS' [facility] Summary Purpose Family History No Family History Records FoundNo Family History Records FoundNo Family History Records FoundNo Family History Records FoundNo Family History Records Found Advance Directives No Advanced Directives Records FoundNo Advanced Directives Records FoundNo Advanced Directives Records FoundNo Advanced Directives Records FoundNo Advanced Directives Records Found Additional Source Comments INFORMATION SOURCE (unrecogn ized section and content) DATE CREATED AUTHOR 05/22/2021 [facility] DATE CREATED AUTHOR AUTHOR'S ORGANIZ ATION 07/15/2021 [facility] DATE CREATED AUTHOR AUTHOR'S ORGANIZ ATION 07/19/2022 [facility] DATE CREATED AUTHOR AUTHOR'S ORGANIZ ATION 10/01/2023 [facility] DATE CREATED AUTHOR AUTHOR'S ORGANIZ ATION 10/24/2023 [facility] REASON FOR VISIT (unrecogniz ed section and content) Reason Comments Follow-up Reason Comments Back Pain cough, congestion#5 [place] CRV, SORE THROAT Care Teams (unrecognized sec tion and content) Commercial Construction Superintendent Relationship Specialty Start Date End Date Justina Valdez MD [address] [place] [address] PCP - General Family Medicine 09/06/22 Commercial Construction Superintendent Relationship Specialty Start Date End Date Justina Valdez MD [address] [place] [address] PCP - General Family Medicine 09/06/22 FOR RECORDS PERTAINING TO PATIENTS WHO ARE OR HAVE BEEN ENROLLED IN A CHEMICAL DEPENDENCY/SUBSTANCEABUSE PROGRAM, SOME INFORMATION MAY BE OMITTED. This clinical summary was aggregated from multiple sources. Caution should be exercised in using it in the provision of clinical care. This summary normalizes information from multiple sources, and as a consequence, information in this document may materially change the coding, format and clinical context of patient data. In addition, data may be omitted in some cases. CLINICAL DECISIONS SHOULD BE BASED ON THE PRIMARY CLINICAL RECORDS. [facility] [employer] [facility]. provides no warranty or guarantee of the accuracy or completeness of information in this document.
[2023-11-02 20:17] VITALS: BP 150/94; PULSE 72; O2SAT 99
[2023-11-02 20:29] LABS: Bilirubin Urine NEGATIVE (NEGATIVE); Blood Urine NEGATIVE (NEGATIVE); Clarity Urine CLEAR (CLEAR); Color Urine YELLOW (YELLOW); Glucose Urine UA NEGATIVE (NEGATIVE); Ketones Urine TRACE mg/dL (NEGATIVE); Leukocyte Esterase Urine TRACE (NEGATIVE); Nitrite Urine NEGATIVE (NEGATIVE); Protein Urine NEGATIVE (NEG/TRACE); Specific Gravity Urine 1.025 (1.005-1.025); Urine Microscopic Indicated YES; Urobilinogen Urine 0.2 EU/dL (0.2-1.0)
[2023-11-02 20:38] LABS: Amorphous Sediment Urine FEW; Bacteria Urine TRACE #/HPF (NONE SEEN); Cast Seen? NONE SEEN #/LPF (NONE SEEN); Crystals Seen? Seen #/HPF (None Seen); Mucus Urine LARGE (NONE SEEN); RBC Urine 0-2 #/HPF (0-2); Squamous Epithelial Cell Urine RARE #/LPF (NONE/RARE); Transitional Epi Cells Urine MODERATE #/LPF (NONE SEEN); Urine Culture Indicated NO; WBC Urine 0-2 #/HPF (NONE SEEN)
== END 2023-11-02 20:52 | disposition home or self-care (01) ==
PROVIDERS: Physician Assistant; Emergency Provider Emergency Medicine; PCP Family Medicine
DX: K57.32 Diverticulitis of large intestine without perforation or abscess without bleeding (principal); R10.9 Unspecified abdominal pain
CPT/HCPCS: 36415; 74176; 80053; 81001; 83690; 85025; 96374; 96375; 99285

== ENCOUNTER 2023-11-08 17:46 | Emergency (ER) | payer BC, SELFPAY ==
[2023-11-08 18:05] VITALS: BP 150/90; PULSE 82; TEMP 37; O2SAT 99; BMI 39.5
--- OUTSIDE RECORDS SUMMARY | 2023-11-08 18:18 | XMS_ITS | CCD ---
Author Organization [facility] Care Team Providers Care Food Service Lead Name Role Phone Yesica Sunshine Unavailable LAURY, DR SERVANDO Barbour Admitting Unavailable FURLONG, DR SERVANDO Barbour Attending Unavailable FURLONG, DR SERVANDO Barbour Referring Unavailable FURLONG, DR SERVANDO Barbour Primary Care Unavailable FURLONG, DR SERVANDO Barbour Consulting Unavailable ELENA, PHILIP Admitting Unavailable ELENA, PHILIP Attending Unavailable FURLONG, DR SERVANDO Barbour Primary Care Unavailable LANEEBER, DR YAW Sánchez Consulting Unavailable ELENA, PHILIP Consulting Unavailable KUNS, DR SERA Sánchez Admitting Unavailable KUNS, DR SERA Sánchez Attending Unavailable FURLONG, DR SERVANDO Barbour Primary Care Unavailable BUHL, DR JUSTINA Garcia Consulting Unavailable KUNS, DR SERA Sánchez Consulting Unavailable FURLONG, DR SERVANDO Barbour Admitting Unavailable FURLONG, DR SERVANDO Barbour Attending Unavailable FURLONG, DR SERVANDO Barbour Primary Care Unavailable María Hager Unavailable Justina Valdez MD Primary Care Provider JUSTINA VALDEZ Attending Unavailable DEFRANCE, JUSTINA Feliciano Referring Unavailable DEFRANCE, JUSTINA Feliciano Primary Care Unavailable DEFRANCE, JUSTINA Feliciano Attending Unavailable DEFRANCEJUSTINA Referring Unavailable DEFRANCE, JUSTINA Feliciano Primary Care Unavailable DEFRANCE, JUSTINA Feliciano Referring Unavailable DEFRANCE, JUSTINA Feliciano Primary Care Unavailable DEFRANCEJUSTINA Referring Unavailable DEFRANCE, JUSTINA Feliciano Primary Care Unavailable DEFRANCEJUSITNA Referring Unavailable DEFRANCEJUSTINA Primary Care Unavailable DEFRANCEJUSTINA Referring Unavailable DEFRANCEJUSTINA Primary Care Unavailable Allergies Allergy Classification Reported Allergen(s) Allergy Type Date of Onset Reaction(s) Facility (3 sources) Amoxicillin Drug Allergy rash [facility] Other (3 sources) Penicillin G Drug Allergy rash [facility] Other (1 source) Iodine (And Iodine Containting Drugs) Drug allergy (disorder) [facility] Repository (3 sources) Penicillins; Translations: [PENICILLINS] Drug allergy (disorder) 3 [facility] Repository (2 sources) Penicillins Propensity to adverse reactions to drug 0 Rash [facility] (4 sources) Iodinated Contrast Media; Translations: [IODINATED CONTRAST MEDIA] Propensity to adverse reactions to drug 0 Hives, Other (See Comments) [facility] Work Phone: Medications Current Medications Medication Drug Class(es) Dates Sig (Normalized) Sig (Original) [id number] 200 actuat albuterol 0.09 mg/actuat metered dose [...] 1.5 mg/ml oral solution (1 source) Uncompetitive V-crnkxy-C-asparta te Receptor Antagonist, Sigma-1 Agonist Start: 3 [place] DM 7.5-7.5 MG/5ML 10 ml Orally every [...] 30 g 5 04/04/2023 Active lactobacillus acidophilus [id number] unt / pectin 100 mg oral tablet [...] Range Facility MAMM SCREENING BILATERAL W C professor of mathematics 10-19-2023 MAMM SCREENING BILATERAL W CAD MAMM [...] AM 1 b MAMM 1 YR Normal [facility] COVID/FLU/RSV RT-PCRon 09-09 SARS-CoV-2 (COVID-19) RNA NAVEEN+probe Ql (Unsp spec) Negative [facility] Other COVID/FLU/RSV RT-PCR Negative [facility] Other VITAMIN D 25 OHon 06-22-2022 VIT D 25-OH 37.8 ng/mL Normal [facility] Comment on above: Performed By: #### V ITAD #### [facility] Laboratory [address] [place] [address] Dr. Vasquez Phillips VIT D RANGES SEE BELOW Normal [facility] Comment on above: Result Comment: <20 ng/mL Vit D deficient 20 - <30 ng/mL Vit D insufficient 30 - 100 ng/mL Vit D sufficient >100 ng/mL Potential Toxicity Performed By: #### V ITAD #### [facility] Laboratory [address] [place] [address] Dr. Vasquez Phillips MG MAMM SCREEN 3D NORM CADon 12-15-2021 MG MAMM SCREEN 3D NORM CAD Patient: MAR GRAY Exam Date: 12/15/2021 : 1965 Gender:F Ordering : PHILIP PARKER Admission #: [id number] Family : Order #: [id number] CLICK HERE TO VIEW EXAM RADIOLOGY REPORT PROCEDURE: MAMMOGRAM SCREENING 3D BILATERAL CAD COMPARISON: MG MAMM ONRM SCRN W CAD DIG, 09/16/2014. MG MAMM SCREEN NORM W CAD, 01/30/2018. INDICATIONS: Screening mammography Calculator Name NCI Breast Cancer Risk Assessment Tool 5 Year Breast Cancer Risk 0.80% Lifetime Breast Cancer Risk 5.30% Personal Breast Cancer No Personal Ovarian Cancer No Treatments None Family Cancers None LOCATION: [facility] BREAST COMPOSITION: Scattered areas fibroglandular density. FINDINGS: [...] M.D. on 12/16/2021 at 08:11 Normal [facility] IMAGE-GUIDED PAP W/AGE BASED SCR PROTOCOLSon 07-14-2021 COMMENT Normal [facility] Comment on above: Order Comment: SPLIT 07/09/2021 FROM [id number] Result Comment: This order for age-based cervical cancer and STI screening follows ACOG guidelines(PB 168, 140, UUI684). See individual assays for performing site location. Performed By: #### 9 8782, 19101 #### [facility]-[address] Completions Engineer: Beka Chicas MD Result Comment: EXPL ANATORY [...] Comment: None given Performed By: #### 9 3356, 87799 #### [facility] [place] [address] Completions Engineer: Beka Chicas MD COMMENT: Normal [facility] Comment on above: Result Comment: This case could not be evaluated with computer assisted technology. The slide was manually screened according to routine procedures. Performed By: #### 9 6264, 86824 #### [facility]-[address], [address] [place] [address] Completions Engineer: Beka Chicas MD PASTE MIXING SUPERVISOR: [facility] Comment on above: Result Comment: LAURA CT(ASCP) CT screening location: [place] [address]. Performed By: #### 9 4508, 39679 #### [facility]-[place] [address] Completions Engineer: Beka Chicas MD HPV mRNA E6/E7 Not detected Normal Not Detected [facility] Comment on above: Result Comment: Meth odology: Water Resources Engineer-Mediated Amplification This assay detects E6/E7 viral messenger RNA (mRNA) from 14 high-risk HPV types (16,18,31,33,35,39,45,51,52,56,58,59,66,68). The analytical performance characteristics of this assay have been determined by [facility]. The modifications have not been cleared or approved by the FDA. This assay has been validated pursuant to the CLIA regulations and is used for clinical purposes. For additional information, please refer to http://education.V[employer].ZUGGI/faq/GUC052w3 (This link if provided for information/ educational purposes only.) Performed By: #### 9 9784, 41487 #### [facility] [address] Completions Engineer: Beka Chicas MD INTERPRETATION/RESU LT: Normal [facility] Comment on above: Result Comment: Nega tive for intraepithelial lesion or malignancy. Performed By: #### 9 5740, 67072 #### [facility]-[address], [address] [place] [address] Completions Engineer: Beka Chicas MD LMP: Normal [facility] Comment on above: Result Comment: NONE GIVEN Performed By: #### 9 1414, 55522 #### [facility], [address] [place] [address] Completions Engineer: Beka Chicas MD PREV. BX: Normal [facility] Comment on above: Result Comment: NONE GIVEN Performed By: #### 9 1414, 59238 #### [facility], [address] [place] [address] Completions Engineer: Beka Chicas MD PREV. PAP: Normal [facility] Comment on above: Result Comment: NONE GIVEN Performed By: #### 9 1414, 48963 #### [facility], [address] [place] [address] Completions Engineer: Beka Chicas MD SOURCE: Normal [facility] Comment on above: Result Comment: Vagi na Performed By: #### 9 1414, 04692 #### [facility], [address] [place] [address] Completions Engineer: Beka Chicas MD STATEMENT OF ADEQUACY: Normal [facility] Comment on above: Result Comment: SATI SFACTORY FOR EVALUATION Performed By: #### 9 1414, 06489 #### [facility], [address] [place] [address] Completions Engineer: Beka Chicas MD COMPREHENSIVE METABOLIC PANE [facility] 07-10-2021 Albumin [Mass/Vol] 4.4 g/dL Normal 3.6-5.1 [facility] Comment on above: Performed By: #### 3 6209, 57563, 54565, 82801, 7600 #### [facility] [address], [address] [place] [address] Completions Engineer: Beka Chicas MD Albumin/Globulin [Mass ratio] 1.6 {ratio} Normal 1.0-2.5 [facility] Comment on above: Performed By: #### 3 4499, 59980, 60215, 42627, 7600 #### [facility] [address], [address] [place] [address] Completions Engineer: Beka Chicas MD ALP [Catalytic activity/Vol] 60 U/L Normal 37-153 [facility] Comment on above: Performed By: #### 3 4499, 01918, 70998, 92341, 7600 #### [facility] of [address], [address] [place] [address] Completions Engineer: Beka Chicas MD ALT [Catalytic activity/Vol] 16 U/L Normal 6-29 [facility] Comment on above: Performed By: #### 3 4499, 47505, 60143, 17181, 7600 #### [facility] of [address], [address] [place] [address] Completions Engineer: Beka Chicas MD AST [Catalytic activity/Vol] 18 U/L Normal 10-35 [facility] Comment on above: Performed By: #### 3 4499, 30594, 08654, 86415, 7600 #### [facility] of [address], [address] [place] [address] Completions Engineer: Beka Chicas MD Bilirubin [Mass/Vol] 0.4 mg/dL Normal 0.2-1.2 [facility] Comment on above: Performed By: #### 3 4499, 00808, 78094, 88004, 7600 #### [facility] of [address], [address] [place] [address] Completions Engineer: Beka Chicas MD BUN/CREATININE RATIO NOT APPLICABLE Normal 6-22 [facility] Comment on above: Performed By: #### 3 4499, 51537, 91435, 28497, 7600 #### [facility] of [address], [address] [place] [address] Completions Engineer: Beka Chicas MD Calcium [Mass/Vol] 9.5 mg/dL Normal 8.6-10.4 [facility] Comment on above: Performed By: #### 3 4499, 09901, 59368, 10475, 7600 #### [facility] [address], [address] [place] [address] Completions Engineer: Beka Chicas MD Chloride [Moles/Vol] 103 mmol/L Normal 98-110 [facility] Comment on above: Performed By: #### 3 4499, 57712, 50123, 49345, 7600 #### [facility] [address], [address] [place] [address] Completions Engineer: Beka Chicas MD CO2 [Moles/Vol] 26 mmol/L Normal 20-32 [facility] Comment on above: Performed By: #### 3 4499, 11237, 57606, 87348, 7600 #### [facility] [address], [address] [place] [address] Completions Engineer: Beka Chicas MD Creatinine [Mass/Vol] 0.85 mg/dL Normal 0.50-1.05 [facility] Comment on above: Result Comment: For patients >49 years of age, the reference limit for Creatinine is approximately 13% higher for people identified as -Palauan. Performed By: #### 3 4499, 67238, 72581, 63707, 7600 #### [facility] [place] [address] Completions Engineer: Beka Chicas MD eGFR NON-AFR. YEMENI 77 mL/min/1.73m2 Normal > OR = 60 [facility] Comment on above: Performed By: #### 3 4499, 18842, 92451, 51205, 7600 #### [facility] [address], [address] [place] [address] Completions Engineer: Beka Chicas MD GFR/1.73 sq M.predicted among blacks MDRD (S/P/Bld) [Vol rate/Area] 89 mL/min/{1.73_m2} Normal > OR = 60 [facility] Comment on above: Performed By: #### 3 4499, 44667, 99504, 38181, 7600 #### [facility] [place] [address] Completions Engineer: Beka Chicas MD Globulin (S) [Mass/Vol] 2.7 g/dL Normal 1.9-3.7 [facility] Comment on above: Performed By: #### 3 4499, 42981, 09974, 12089, 7600 #### [facility] [place] [address] Completions Engineer: Beka Chicas MD Glucose [Mass/Vol] 95 mg/dL Normal 65-99 [facility] Comment on above: Result Comment: Fasting reference interval Performed By: #### 3 4499, 32783, 54325, 69840, 7600 #### [facility] [place] [address] Completions Engineer: Beka Chicas MD Potassium [Moles/Vol] 4.2 mmol/L Normal 3.5-5.3 [facility] Comment on above: Performed By: #### 3 4499, 46300, 63172, 16169, 7600 #### [facility] [place] [address] Completions Engineer: Beka Chicas MD Protein [Mass/Vol] 7.1 g/dL Normal 6.1-8.1 [facility] Comment on above: Performed By: #### 3 4499, 63751, 54903, 46747, 7600 #### [facility] [place] [address] Completions Engineer: Beka Chicas MD Sodium [Moles/Vol] 137 mmol/L Normal 135-146 [facility] Comment on above: Performed By: #### 3 4499, 56223, 10769, 63173, 7600 #### [facility] of [place] [address] Completions Engineer: Beka Chicas MD Urea nitrogen [Mass/Vol] 18 mg/dL Normal 7-25 [facility] Comment on above: Performed By: #### 3 4499, 48985, 97873, 40174, 7600 #### [facility] [address], [address] [place] [address] Completions Engineer: Beka Chicas MD LIPID PANEL, [facility] 12- Cholesterol [Mass/Vol] 160 mg/dL Normal <200 [facility] Comment on above: Order Comment: [facility] O NLY: NURSE COLLECTED - NO SPECIMEN PROVIDED. Performed By: #### 3 4499, 67037, 06640, 66604, 7600 #### [facility] [address], [address] [place] [address] Completions Engineer: Beka Chicas MD Cholesterol in HDL [Mass/Vol] 52 mg/dL Normal > OR = 50 [facility] Comment on above: Order Comment: LT O NLY: NURSE COLLECTED - NO SPECIMEN PROVIDED. Performed By: #### 3 4499, 90453, 03701, 63990, 7600 #### [facility] [address], [address] [place] [address] Completions Engineer: Beka Chicas MD Cholesterol in LDL [Mass/Vol] 88 mg/dL Normal [facility] Comment on above: Order Comment: [facility] O NLY: NURSE COLLECTED - NO SPECIMEN [...] LDL-C. Landen HERNANDEZ et al. DURGA. 2013;310(19): 6787-8373 (http://education.[employer].ZUGGI/faq/DOK436) Performed By: #### 3 4499, 07462, 32108, 22840, 7600 #### [facility] [address], [address] [place] [address] Completions Engineer: Beka Chicas MD Cholesterol.total/C holesterol in HDL [Mass ratio] 3.1 {ratio} Normal <5.0 [facility] Comment on above: Order Comment: LT O NLY: NURSE COLLECTED - NO SPECIMEN PROVIDED. Performed By: #### 3 4499, 13558, 58638, 20453, 7600 #### [facility] [address], [address] [place] [address] Completions Engineer: Beka Chicas MD NON HDL CHOLESTEROL 108 mg/dL (calc) Normal <130 [facility] Comment on above: Order Comment: LT O NLY: NURSE COLLECTED - NO SPECIMEN PROVIDED. Result Comment: For patients with diabetes plus 1 major ASCVD risk factor, treating to a non-HDL-C goal of <100 mg/dL (LDL-C of <70 mg/dL) is considered a therapeutic option. Performed By: #### 3 4499, 61491, 76354, 19643, 7600 #### [facility] [address], [address] [place] [address] Completions Engineer: Beka Chicas MD Triglyceride [Mass/Vol] 103 mg/dL Normal <150 [facility] Comment on above: Order Comment: [facility] O NLY: NURSE COLLECTED - NO SPECIMEN PROVIDED. Performed By: #### 3 4499, 78002, 12952, 27956, 7600 #### [facility] [place] [address] Completions Engineer: Beka Chicas MD SARS COV 2 AB [...] providers and patients using the following websites: http://patient.[facility].com/[facility]-HCP [email or web address].[email or web address]/[email or web address]-Patients Healthcare Providers: For additional information please refer to: http://education.V[employer].com/faq/YMI045 (This link is being provided for informational/educational purposes only.) This test has been authorized by the FDA under an Emergency Use Authorization (EUA) for use by authorized laboratories. The FDA authorized labeling is available on the [facility] website: www.[employer].ZUGGI/Covid19. Performed By: #### 3 4499, 41275, 32659, 53836, 8640 #### [facility] [address], [address] [place] [id number] Completions Engineer: Beka Chicas MD TSH+FREE T4on 07-10-2021 Free T4 [Mass/Vol] 1.1 ng/dL Normal 0.8-1.8 [facility] Comment on above: Performed By: #### 3 4499, 75304, 68115, 04013, 7600 #### [facility] [address], [address] [place] [address] Completions Engineer: Beka Chicas MD TSH Qn 0.87 m[IU]/L Normal 0.40-4.50 [facility] Comment on above: Performed By: #### 3 4499, 71976, 03620, 83755, 7600 #### [facility] [address], [address] [place] [address] Completions Engineer: Beka Chicas MD VITAMIN D,25-OH,TOTAL,IAon 1 09-10-2020 [...] D, (D2,D3), LC/MS/MS is recommended: order code 54087 (patients >2yrs). See Note 1 Note 1 For additional information, please refer to http://education.Getix/faq/GBF447 (This link is being provided for informational/ educational purposes only.) Performed By: #### 3 4499, 55261, 23086, 31528, 7600 #### [facility] [address], [address] [place] [address] Completions Engineer: Beka Chicas MD Throat Cultureon 05-16-2021 Throat culture Respiratory Results Moderate Normal Respiratory Peyton 2 Days PERFORMED BY: [place] [id number] PATHOLOGIST SOLDERER [employer]LECTRONIC BRIDGET SANTIAGO M.D. [facility] Comment on above: Performed By: #### C [place] #### [address] Vital Signs Date Time Vital Sign Value Performing Clinician Facility 09-29-2023 15:49-0500 Body height 163.8 cm Justina Valdez MD Work Phone: [facility] 09-29-2023 15:49-0500 Body mass index (BMI) [Ratio] 42.25 kg/m2 Justina Valdez MD Work Phone: [facility] 09-29-2023 15:49-0500 Body weight 113.4 kg Justina Valdez MD Work Phone: [facility] 09-29-2023 15:49-0500 Diastolic blood pressure 84 mm[Hg] Justina Valdez MD Work Phone: [facility] 09-29-2023 15:49-0500 Heart rate 80 /min Justina Valdez MD Work Phone: [facility] 09-29-2023 15:49-0500 Respiratory rate 16 /min Justina Valdez MD Work Phone: [facility] 09-29-2023 15:49-0500 Systolic blood pressure 138 mm[Hg] Justina Valdez MD Work Phone: [facility] 09-02-2023 08:09-0500 Body height 163.8 cm Justina Valdez MD Work Phone: [facility] 09-02-2023 08:09-0500 Body mass index (BMI) [Ratio] 42.17 kg/m2 Justina Valdez MD Work Phone: [facility] 09-02-2023 08:09-0500 Body weight 113.17 kg Justina Valdez MD Work Phone: [facility] 09-02-2023 08:09-0500 Diastolic blood pressure 80 mm[Hg] Justina Valdez MD Work Phone: [facility] 09-02-2023 08:09-0500 Heart rate 80 /min Justina Valdez MD Work Phone: [facility] 09-02-2023 08:09-0500 Respiratory rate 16 /min Justina Valdez MD Work Phone: [facility] 09-02-2023 08:09-0500 Systolic blood pressure 140 mm[Hg] Justina Valdez MD Work Phone: [facility] 09-09-2022 16:50-0500 Body height 162.56 cm María Mendezault Other [facility] Other 09-09-2022 16:50-0500 Body temperature 99 [degF] María Mendezault Other [facility] Other 09-09-2022 16:50-0500 SaO2% (BldA) [Mass fraction] 98 % María Mendezault Other [facility] Other 05-16-2021 11:00-0400 Body height 162.56 cm Yesica Ginty Other [facility] Other 05-16-2021 11:00-0400 Body mass index (BMI) [Ratio] 37.76 kg/m2 Yesica Ginty Other [facility] Other 05-16-2021 11:00-0400 Body temperature 97.1 [degF] Yesica Ginty Other [facility] Other 05-16-2021 11:00-0400 Body weight 99.79 kg Yesica Ginty Other [facility] Other 05-16-2021 11:00-0400 SaO2% (BldA) [Mass fraction] 96 % Yesica Ginty Other [facility] Other Encounters Encounter Date Encounter Type Care Provider Facility Start: 10-19-2023 End: 10-20-2023 ambulatory JUSTINA T [facility] Start: 09-29-2023 End: 09-29-2023 ambulatory [facility] Start: 09-29-2023 End: 09-29-2023 Office outpatient visit 15 minutes Justina Valdez MD Work Phone: [facility] Comment on above: TOS (thoracic outlet syndrome) (Primary Dx) Start: 09-23-2023 End: 10-24-2023 ambulatory [facility] Start: 09-02-2023 End: 09-02-2023 ambulatory [facility] Start: 09-02-2023 End: 09-02-2023 Office outpatient visit 15 minutes Justina Valdez MD Work Phone: [facility] Comment on above: Lumbar degenerative disc disease (Primary Dx) Start: 08-25-2023 End: 09-23-2023 ambulatory [facility] Start: 08-04-2023 End: 08-25-2023 ambulatory [facility] Start: 09-09-2022 End: 09-09-2022 ambulatory María Hager Other [facility] Other Start: 09-09-2022 Office outpatient vi sit [...] Td Vaccines (2 - Td or Tdap) [facility] Start: 09-28-2024 Adult BMI Screening Adult BMI Screening [facility] Start: 09-28-2024 Depression Screening Depression Screening [facility] Start: 09-28-2024 Tobacco Screening Tobacco Screening [facility] Start: 09-02-2024 Depression Screening Depression Screening [facility] Start: 09-02-2024 Tobacco Screening Tobacco Screening [facility] Start: 06-27-2024 Adult BMI Screening Adult BMI Screening [facility] Start: 03-06-2024 End: 03-06-2024 Patient encounter procedure 03/06/2024 4:15 PM EDT Office Visit [facility] [address] [place] [id number] Justina Valdez MD [address] [facility] [place], [place] [id number] [facility] Start: 03-25-2023 Influenza vaccination Influenza Vaccine [facility] Start: 2015 Administration of varicella zoster vaccine Zoster (Shingles) Vaccine (1 of 2) [facility] Start: 1986 Screening for malignant neoplasm of cervix Pap Smear [facility] Start: 1983 Adult BMI Follow Up Plan Adult BMI Follow Up Plan [facility] Start: 1983 Diabetic foot examination Diabetic Foot Exam [facility] Start: 1965 Glaucoma screening Diabetic Ophthalmology Exam [facility] Immunizations Immunization Date Immunization Notes Care Provider Fa cility 03-29-2017 tetanus toxoid, redu debbie diphtheria toxoid, and acellular pertussis vaccine, adsorbed Justina Valdez MD Work Phone: [facility] Payers Date Payer Category Payer Unknown [employer] OUT OF STATE PPO/TRUST [id number] 2021-Present [phone] [address] [place] [address] [id number] 1965 Unknown [id number] [id number]. 593 1965 Unknown [id number] 2.16.840.1.288941.3.579.2. 593 1965 Unknown [id number] 2.16.840.1.440427.3.579.2. 593 1965 Unknown [id number] 2.16.840.1.739150.3.579.2. 593 1965 Unknown [id number] 2.16.840.1.593465.3.579.2. 1286 1965 Unknown [id number] 2.16.840.1.059450.3.579.2. 1286 1965 Unknown [id number] 2.16.840.1.823920.3.579.2. 1286 1965 Unknown [id number] 2.16.840.1.578741.3.579.2. 1286 1965 Unknown [id number] 2.16.840.1.827940.3.579.2. 1286 1965 Unknown [id number] 2.16.840.1.757724.3.579.2. 1286 1959 Blue Cross Blue Shield [id number] 1959 Self-pay Social History Date Type Detail Facility Unknown if ever smoked [facility] Other Start: 06-21-2022 End: 09-29-2023 Sex Assigned At [facility] Other Start: 05-18-2022 Tobacco smoking status NHIS Ex-smoker [facility] End: 07-25-2012 History of tobacco use Current smoker [facility] End: 07-25-2012 History of tobacco use Cigarette Smoker [facility] Start: 05-18-2022 End: 06-21-2022 Cigarettes smoked current (pack per day) - Reported 1 [facility] Start: 05-18-2022 Tobacco use and exposure Smokeless tobacco non-user [facility] Start: 09-02-2023 End: 09-29-2023 Alcohol intake Current drinker of alcohol (finding) [facility] [facility] Do you belong to any clubs or organizations such as congregational groups, unions, fraternal or athletic groups, or school groups? Yes [facility] Are you now , , , , never or living with a partner? [facility] How often to you hav e a drink containing alcohol? Monthly or less [facility] How many standard dr inks containing alcohol do you have on a typical day? 1 or 2 [facility] How often do you hav e 6 or more drinks on 1 occasion? Never [facility] How hard is it for y ou to pay for the very basics like food, housing, medical care, and heating Not hard at all [facility] Do you feel stress - tense, restless, nervous, or anxious, or unable to sleep at night because your mind is troubled all the time - these days [OSQ] Not at all [facility] Start: 05-18-2022 Alcohol Comment rare-2 drinks/year [facility] [employer] Start: 1965 Sex Assigned At Not on file [facility] Clinical Notes 05-16-2021 to 09-29-2023 Justina Valdez MD - 09/29/2023 3:45 PM Kee Valdez MD - 09/02/2023 8:00 AM EST Note Date & Type Note Facility 09-29-2023 History of Present illness Narrative Images from the original note were not included. [address] [facility] [address] SUBJECTIVE: Patient ID: Mar Gray is a [...] referral Home exercises [facility] History of Present illness Narrative Images from the original note were not included. [address] [facility] [address] SUBJECTIVE: Patient ID: Mar Gray is a [...] this visit: Lumbar degenerative disc disease - [facility] - [place], [place]; Future Other orders - cyclobenzaprine (FLEXERIL) 10 mg tablet; Take 1 tablet (10 mg total) by mouth nightly. - predniSONE (STERAPRED DS) 10 mg tablet pack; Take by mouth daily for 8 days. 6 tabs qd x 3 d then 1 less each day with food Follow-up: Hold meloxicam x 8d then reume Prednisone and flexeril ptx documented in this encounter [facility] 09-09-2022 Evaluation note Encounter Date Diagnosis [...] weeks for the cough to go away [facility] Other 07-12-2022 NotePROCEDURE: XR FINGER MIN 2 VIEWS COMPARISON: None. HISTORY: Enthesopathy FINDINGS: BONES:No fracture, acute abnormality, or significant arthropathy. SOFT TISSUES:Soft tissue swelling of the third finger EFFUSION:None visible. OTHER: Negative. IMPRESSION: Soft tissue swelling. No acute fracture or significant degenerative changes of the right third finger Electronically authenticated by: JUSTINA TIMMONS Date: 2022-02-02 19:24[facility]10-23-2021 Evaluation note* Encounter Date Diagnosis Assessment Notes [...] understanding and is agreeable with treatment plan [facility] Other Evaluation noteNo InformationNort [employer] Other Evaluation note* Diagnosis Lumbar degenerative disc disease- Primary documented in this encounter [facility]* Diagnosis TOS (thoracic outlet syndrome)- Primary Brachial plexus lesions documented in this encounter [facility] System[facility] general Narrative - Reported* Type Description Date Surgical History C section x4 Surgical History cholecystectomy Hospitalization History see above [facility] Other InstructionsNot on filedocumented in this encounter [facility] SystemInstructions* Attachments The following attachments cannot be sent through Care Everywhere. * Thoracic Outlet Syndrome Exercises (Italian) [facility] ([facility]ative)* Consultation (Routine) - Authorized Specialty Diagnoses / Procedures Referred By Raquel feliciano Referred To Contact Rehabilitation Diagnoses Lumbar degenerative disc disease Justina Valdez MD [address] [place] [address] [facility] [address] [place] [address] Referral ID Status Reason Start Date Expiration Date Visits Requested Visits Authorized [id number] Authorized Specialty Services Required 09/02/2023 09/01/2024 1 1 Scheduling Instructions Eval and tx low back issues twice a weekx 4-6 weeks and home exercise program [facility] (narrative)* Consultation (Routine) - Authorized Specialty Diagnoses / Procedures Referred By Raquel feliciano Referred To Contact Orthopedic Surgery Diagnoses TOS (thoracic outlet syndrome) Justina Valdez MD [address] [place] [address] Rajendra Hernandez MD [address] [place] [id number] Referral ID Status Reason Start Date Expiration Date Visits Requested Visits Authorized [id number] Authorized Specialty Services Required 09/29/2023 09/28/[address] [facility] Summary Purpose Family History No Family History Records FoundNo Family History Records FoundNo Family History Records FoundNo Family History Records FoundNo Family History Records Found Advance Directives No Advanced Directives Records FoundNo Advanced Directives Records FoundNo Advanced Directives Records FoundNo Advanced Directives Records FoundNo Advanced Directives Records Found Additional Source Comments INFORMATION SOURCE (unrecogn ized section and content) DATE CREATED AUTHOR 05/22/2021 [facility] DATE CREATED AUTHOR AUTHOR'S ORGANIZ ATION 07/15/2021 [facility] DATE CREATED AUTHOR AUTHOR'S ORGANIZ ATION 07/19/2022 [facility] DATE CREATED AUTHOR AUTHOR'S ORGANIZ ATION 10/01/2023 [facility] DATE CREATED AUTHOR AUTHOR'S ORGANIZ ATION 10/24/[address] [facility] REASON FOR VISIT (unrecogniz ed section and content) Reason Comments Follow-up Reason Comments Back Pain cough, congestion#5 [place] CRV, SORE THROAT Care Teams (unrecognized sec tion and content) Food Service Lead Relationship Specialty Start Date End Date Justina Valdez MD [address] [place] [address] PCP - General Family Medicine 09/06/22 Food Service Lead Relationship Specialty Start Date End Date Justina Valdez MD [address] [place] [address] PCP - General Family Medicine 09/06/22 FOR [...] BE BASED ON THE PRIMARY CLINICAL RECORDS. [facility] [employer] [facility]. provides no warranty or guarantee of the accuracy or completeness of information in this document.
--- NOTE | 2023-11-08 18:33 | CT_ITS ---
The [address] [address] Patient Name: MAR ADAME MRN: [id number] date: 1965 Sex: F Assigned Patient Location: ER Current Patient Location: ER Accession/Order Number: [id number] Exam Date: 11/08/2023 19:20 Report Date: 11/08/2023 20:09 At the request of: JANET AMOR Procedure: CT abdomen pelvis wo con EXAM: CT abdomen pelvis wo con HISTORY: Diffuse abdominal pain, diverticulitis last week COMPARISON: 11/02/2023 TECHNIQUE: Unenhanced CT imaging of the abdomen and pelvis. This CT exam was performed using one or more of the following dose reduction techniques: Automated exposure control, adjustment of the mA and/or KV according to patient size, or use of iterative reconstruction technique. Unless otherwise stated, incidental findings do not require dedicated follow-up imaging. FINDINGS: There is minimal right base atelectasis. The heart size is normal. The liver, spleen, pancreas, adrenal glands, and kidneys have a normal noncontrast enhanced appearance. The bowel is unobstructed. The appendix is normal. There is sigmoid diverticulosis without acute diverticulitis. The gallbladder is surgically absent. The bladder is distended and normal. The bones are intact without acute abnormality. CT/CT abdomen pelvis wo con IMPRESSION: 1. No acute abnormality of the abdomen or pelvis. 2. Sigmoid diverticulosis without acute diverticulitis. Electronically authenticated by: RODOLFO CUBA Date: 11/08/2023 20:09
--- NOTE | 2023-11-08 18:34 | ED.ABDPAIN1 ---
HPI - Abdominal Pain General Chief Complaint: Nausea/Vomiting/Diarrhea Stated Complaint: Flu Like Symptoms Time Seen by Provider: 11/08/23 18:29 Source: patient Mode of arrival: walk-in Limitations: no limitations History of Present Illness HPI narrative: 58-year-old female presents for abdominal pain. She was seen here last week and reports that she was diagnosed with diverticulitis. She was discharged home on oral antibiotics and she has been taking them today. She did not feel well because of increasing symptoms and was not able to take them. She complains of increasing pain and some nausea and lack of energy. Her left ear has been hurting and she has had a headache. Related Data Previous Rx's ?Medication ?Instructions ?Recorded cefdinir 300 mg capsule 300 mg PO BID 7 days #14 caps 11/02/23 docusate sodium 100 mg capsule 100 mg PO BID stool softener #20 11/02/23 (Colace) caps hydrocodone 5 mg-acetaminophen 325 1 tab PO Q4H PRN pain 3 days #8 11/02/23 mg tablet tabs metronidazole 500 mg tablet 500 mg PO TID 7 days #21 tabs 11/02/23 Allergies Allergy/AdvReac Type Severity Reaction Status Date / Time Iodinated Contrast Media Allergy Intermediate Verified 11/02/23 17:31 Penicillins Allergy Intermediate Verified 11/02/23 17:31 Review of Systems ROS Narrative A ten point review of systems is negative except as noted above. Exam Narrative Exam Narrative: Nurses note and vital signs reviewed and patient is not hypoxic. General: The patient appears well and in no apparent distress. Patient is resting comfortably on cart. Skin: Warm, dry, no pallor noted. There is no rash noted. Head: Normocephalic, atraumatic Eye: Normal conjunctiva, no drainage Ears, Nose, Mouth, and Throat: oral mucosa is moist. Nares patent. Both TMs and both external canals are normal in appearance Cardiovascular: Regular Rate and Rhythm Respiratory: Patient is in no distress, no accessory muscle use, lungs are clear to auscultation, no wheezing, rales or rhonchi Back: non-tender GI: Mild diffuse tenderness without rebound and no guarding or distention Musculoskeletal: The patient has no evidence of calf tenderness, no pitting edema, symmetrical pulses noted bilaterally Neurological: A&O, normal speech Psychiatric: Cooperative Constitutional Vital Signs, click to edit/add: Last Vital Signs Temp 98.6 F 11/08/23 18:05 Pulse 82 11/08/23 18:05 Resp 18 11/08/23 18:05 BP 150/90 H 11/08/23 18:05 Pulse Ox 99 11/08/23 18:05 O2 Del Method Room Air 11/08/23 18:05 Course Vital Signs Vital signs: Vital Signs Temperature 98.6 F 11/08/23 18:05 Pulse Rate 82 11/08/23 18:05 Respiratory Rate 18 11/08/23 18:05 Blood Pressure 150/90 H 11/08/23 18:05 Pulse Oximetry 99 11/08/23 18:05 Oxygen Delivery Method Room Air 11/08/23 18:05 Temperature 98.6 F 11/08/23 18:05 Pulse Rate 82 11/08/23 18:05 Respiratory Rate 18 11/08/23 18:05 Blood Pressure 150/90 H 11/08/23 18:05 Pulse Oximetry 99 11/08/23 18:05 Oxygen Delivery Method Room Air 11/08/23 18:05 MDM - Abdominal Pain MDM Narrative Medical decision making narrative: Tests are ordered and the patient is signed out to Dr. Hubbard at change of shift. Discharge Plan Discharge Patient Disposition: Still a Patient
[2023-11-08 18:49] LABS: Basophils Percent Auto 0.3 % (0.2-2.0); Eosinophils Absolute Auto 0.4 10^3/uL (0.0-0.7); Eosinophils Percent Auto 4.1 % (0.9-7.0); Hematocrit 38.8 % (36.0-48.0); Hemoglobin 12.6 g/dL (12.0-16.0); Immature Granulocytes Abs Auto 0.02 10^3/uL (0.00-0.03); Immature Granulocytes Pct Auto 0.2 % (0.0-0.5); Lymphocytes Absolute Auto 1.9 10^3/uL (1.2-3.8); Lymphocytes Percent Auto 20.8 % (20.5-60.0); Mean Corpuscular HGB Conc 32.5 g/dL (29.9-35.2); Mean Corpuscular Hemoglobin 32.6 pg (26.7-34.0); Mean Corpuscular Volume 100.3 fL (81.0-99.0); Mean Platelet Volume 10.1 fL (9.5-13.5); Monocytes Absolute Auto 0.6 10^3/uL (0.3-0.8); Monocytes Percent Auto 6.7 % (1.7-12.0); Neutrophils Absolute Auto 6.2 10^3/uL (1.4-6.5); Neutrophils Percent Auto 67.9 % (43.0-75.0); Platelet Count 385 10^3/uL (150-450); Red Blood Count 3.87 10^6/uL (4.20-5.40); Red Cell Distribution Width 12.5 % (11.0-15.0); White Blood Count 9.2 10^3/uL (4.0-11.0)
--- NOTE | 2023-11-08 18:49 | PC.NURSE ---
States only vomited 1 time. C/O low back and abdominal pain
[2023-11-08 19:16] LABS: Alanine Aminotransferase 24 U/L (14-59); Albumin Level 3.6 g/dL (3.4-5.0); Alkaline Phosphatase 68 U/L (46-116); Amylase 31 U/L (25-115); Anion Gap 11.7; Aspartate Amino Transferase 21 U/L (15-37); BUN Creatinine Ratio 17.9; Bilirubin Direct 0.1 mg/dL (0.0-0.2); Bilirubin Total 0.3 mg/dL (0.2-1.0); Calcium 9.3 mg/dL (8.5-10.1); Carbon Dioxide 27.5 mmol/L (21.0-32.0); Chloride 104 mmol/L (98-107); Estimated GFR (African America >60 (>=60); Estimated GFR (Non-African Ame >60 (>=60); Globulin 3.6 g/dL; Glucose 98 mg/dL (74-106); Potassium 4.2 mmol/L (3.5-5.1); Sodium 139 mmol/L (136-145); Total Protein 7.2 g/dL (6.4-8.2)
[2023-11-08 19:53] LABS: Bilirubin Urine NEGATIVE (NEGATIVE); Blood Urine NEGATIVE (NEGATIVE); Clarity Urine CLEAR (CLEAR); Color Urine YELLOW (YELLOW); Glucose Urine UA NEGATIVE (NEGATIVE); Ketones Urine TRACE mg/dL (NEGATIVE); Leukocyte Esterase Urine TRACE (NEGATIVE); Nitrite Urine NEGATIVE (NEGATIVE); Protein Urine NEGATIVE (NEG/TRACE); Specific Gravity Urine 1.025 (1.005-1.025); Urobilinogen Urine 0.2 EU/dL (0.2-1.0)
[2023-11-08 20:02] LABS: Bacteria Urine NONE SEEN #/HPF (NONE SEEN); Cast Seen? NONE SEEN #/LPF (NONE SEEN); Crystals Seen? None Seen #/HPF (None Seen); Mucus Urine SMALL (NONE SEEN); Oval Fat Bodies Urine SEEN; RBC Urine 0-2 #/HPF (0-2); Squamous Epithelial Cell Urine FEW #/LPF (NONE/RARE); Urine Culture Indicated NO
[2023-11-08] MEDS: ONDANSETRON PF 4 MG/2 ML VIAL IV (20:28)
[2023-11-08 20:54] VITALS: BP 155/86
[2023-11-08] MEDS: ONDANSETRON 4 MG RAPDIS TABLET SL (21:45)
== END 2023-11-08 21:49 | disposition home or self-care (01) ==
PROVIDERS: Emergency Medicine; Emergency Provider Internal Medicine; PCP Family Medicine
DX: R11.0 Nausea (principal)
CPT/HCPCS: 36415; 74176; 80048; 80076; 81001; 82150; 83690; 85025; 96374; 99285

== ENCOUNTER 2023-11-18 09:51 | Inpatient (IN) | payer BC, SELFPAY ==
[2023-11-18] VITALS (29 sets, daily range): BP systolic 111–159; BP diastolic 70–98; PULSE 73–89; TEMP 36.3–37.1; O2SAT 93–100; BMI 39.5; BMI 41.9
--- NOTE | 2023-11-18 10:08 | CT_ITS ---
[address] [address] Patient Name: MAR ADAME MRN: [id number] date: 1965 Sex: F Assigned Patient Location: ER Current Patient Location: ER Accession/Order Number: [id number] Exam Date: 11/18/2023 11:34 Report Date: 11/18/2023 12:05 At the request of: ROSMERY VARGAS Procedure: CT abdomen pelvis w con EXAMINATION: CT abdomen pelvis w con HISTORY: abd pain COMPARISON: No relevant comparison available. TECHNIQUE: CT images were created with IV contrast. Axial, Coronal, and Sagittal images. Dose reduction techniques were achieved by using automated exposure control and/or adjustment of mA and/or kV according to patient size and/or use of iterative reconstruction technique. FINDINGS: LUNG BASES: Mild right basilar opacity, atelectasis is favored LIVER: Diffuse hypoattenuation suggesting hepatic steatosis. No focal mass BILIARY: Surgical clips from cholecystectomy PANCREAS: No lesion, fluid collection, ductal dilatation, or atrophy. SPLEEN: No enlargement or focal lesion. ADRENALS: No mass or enlargement. KIDNEYS: No mass, obstruction, or calcification. BOWEL/MESENTERY: Concentric wall thickening of the sigmoid colon measuring up to 1.3 cm with underlying diverticulosis. Pericolonic stranding with a small amount of free fluid. Nonobstructive bowel gas pattern. Normal appendix AORTA/VASCULAR: No aneurysm or dissection. RETROPERITONEUM: No mass or adenopathy. LYMPH NODES: No adenopathy. URINARY BLADDER: No visible focal wall thickening, lesion, or calculus. PELVIC ORGANS: No visible mass. Pelvic organs appropriate for patient age. ABDOMINAL WALL: No mass or hernia. BONES: No bony lesion or fracture. OTHER: Negative. CT/CT abdomen pelvis w con IMPRESSION: Acute sigmoid colon diverticulitis with no focal abscess Electronically authenticated by: JUSTINA TIMMONS Date: 11/18/2023 12:05
--- NOTE | 2023-11-18 10:11 | ED_ITS ---
HPI HPI - General Adult General Chief complaint: Abdominal Pain Stated complaint: ABDOMINAL PAIN/BACK PAIN Time Seen by Provider: 11/18/23 10:07 Source: patient Mode of arrival: walk-in Limitations: no limitations History of Present Illness HPI narrative: Patient is a 58-year-old female who is presenting to the ER today with chief complaint nausea, intermittent abdominal pain for the past 2 to 3 weeks. Patient is having left lower back pain, left buttock pain that radiates into her left thigh, left inguinal area. Patient states she had a smaller soft stool yesterday, patient is passing gas. No significant bowel movements yesterday or today. Patient was here several weeks ago, patient was noted to have diverticulitis on CAT scan. Patient was placed on antibiotics. Patient still was having pain and difficulties, patient had repeat CAT scan that showed symptoms that have not resolved completely. Patient was on additional medication. Patient saw her PCP Dr. Butt in the office today, and patient was sent to the ER to have a third CAT scan done in the last 2 to 3 weeks. We did not receive a call from the PCP office about this patient coming to the ER. She has no urinary frequency, urgency or burning. No fever, mild chills. No chest pain or shortness of breath. Patient thinks that she still has infection of diverticulitis. Patient does not think her left lower back pain that radiates into the left buttock is sciatica. Patient has no saddle anesthesia, cauda equina. Patient has no urinary frequency urgency or burning, no other acute complaints. Patient does not have her gallbladder, she does have her appendix, uterus and ovaries. Patient has not had a colonoscopy recently, her last colonoscopy they did remove polyps in the last year to All systems are negative except as noted/marked. All systems reviewed and otherwise negative. Nurses note and vital signs reviewed and patient is not hypoxic. General: The patient appears well and in no apparent distress. Patient is resting comfortably on cart. Patient is not toxic, lethargic, or listless Skin: Warm, dry, no pallor noted. There is no rash noted. No petechiae, purpura. Head: Normocephalic, atraumatic Eye: Normal conjunctiva, no drainage, EOMI. PERRL Ears, Nose, Mouth, and Throat: oral mucosa is moist. Nares patent. Mouth without vesicles. Cardiovascular: Regular Rate and Rhythm, no murmur, gallop, rub Respiratory: Patient is in no distress, no accessory muscle use, lungs are clear to auscultation, no wheezing, rales or rhonchi Back: Patient has moderate tenderness palpation to the left paralumbar soft tissue, no midline lumbar sacral tenderness palpation, moderate tenderness to palpation to left piriformis muscle. Positive straight leg raising test of the left leg, patient has no pain to left hip with internal/external rotation, otherwise the rest of her back shows non-tender, no CVA tenderness bilaterally to percussion. No CT LS midline pain GI: Obese, mild left lower quadrant tenderness palpation no tenderness to palpation, no masses appreciated. No rebound, guarding, or rigidity noted. No distention no peritoneal signs.. Musculoskeletal: Patient has full range of motion of all of the extremities, no motor, sensory, or focal neurological deficits Neurological: A&O x4, normal speech Psychiatric: Cooperative Related Data Home Medications ?Medication ?Instructions ?Recorded ?Confirmed ciprofloxacin HCl 500 mg tablet 500 mg PO BID 11/18/23 11/18/23 meloxicam 15 mg tablet 15 mg PO QAM 11/18/23 11/18/23 ondansetron 4 mg disintegrating 4 mg PO Q4H PRN nausea and vomiting 11/18/23 11/18/23 tablet Allergies Allergy/AdvReac Type Severity Reaction Status Date / Time Iodinated Contrast Media Allergy Intermediate Verified 11/02/23 17:31 Penicillins Allergy Intermediate Verified 11/02/23 17:31 Opioid HPI Opioid Management Most Recent Opioid Data: Last Pain Scale 7 11/08/23 18:50 Last ORT Total Score 0 11/18/23 15:11 Last ORT Risk Category Low Risk 11/18/23 15:11 PFSH PFS Medical History (Updated 11/18/23 @ 15:39 by Annamaria Rosa NP) Thoracic outlet syndrome of left thoracic outlet ?G54.0 - Brachial plexus disorders (ICD-10) Arm pain, chronic ?M79.603 - Pain in arm, unspecified (ICD-10) ?G89.29 - Other chronic pain (ICD-10) Diverticulitis ?K57.92 - Diverticulitis of intestine, part unspecified, without perforation or abscess without bleeding (ICD-10) Surgical History (Updated 11/18/23 @ 14:59 by Leonora Donis) Hx of cholecystectomy ?Z90.49 - Acquired absence of other specified parts of digestive tract (ICD- 10) H/O: ?Z98.891 - History of uterine scar from previous surgery (ICD-10) Family History (Updated 11/18/23 @ 15:01 by Leonora Donis) Grandfather Family history of CHF (congestive heart failure) Father Family history of cancer Mother Family history of hypertension Social History (Updated 11/18/23 @ 15:03 by Leonora Donis) Within the past year, how often did you have a drink containing alcohol: monthly or less Within the past year, how many standard drinks containing alcohol did you have on a typical day: 1 or 2 Within the past year, how often did you have six or more drinks on one occasion: never Total score: 0 Score interpretation: A score less than 3 is consistent with normal alcohol consumption. Smoking status: Former smoker Non-prescribed substance use: denies use Previous occupational history: [employer] Highest level of school completed/degree received: some college, no degree Are you now , , , , never or living with a partner: In a typical week, how many times do you talk on the telephone with family, friends, or neighbors: 3 or more times per week How often do you get together with friends or relatives: 3 or more times per week How often do you attend latter-day or gnosticism services: 4 or more times per year Do you belong to any clubs or organizations such as latter-day groups unions, fraternal or athletic groups, or school groups: no Total score: 3 Score interpretation: A score of greater than or equal to 2 indicates the lowest level of social isolation. Little interest or pleasure in doing things: not at all Feeling down, depressed, or hopeless: not at all Feel stressed/tense/nervous/anxious/difficulty sleeping: not at all Gender Identity: female Exam Constitutional Vital Signs, click to edit/add: Last Vital Signs Temp 98.3 F 11/18/23 15:11 Pulse 73 11/18/23 15:11 Resp 20 11/18/23 15:11 BP 146/84 H 11/18/23 15:11 Pulse Ox 97 11/18/23 15:11 O2 Del Method Room Air 11/18/23 15:11 Course Vital Signs Vital signs: Vital Signs Temperature 98.8 F 11/18/23 09:56 Pulse Rate 89 11/18/23 09:56 Respiratory Rate 18 11/18/23 09:56 Blood Pressure 150/88 H 11/18/23 09:56 Pulse Oximetry 99 11/18/23 09:56 Oxygen Delivery Method Room Air 11/18/23 09:56 Temperature 98.3 F 11/18/23 15:11 Pulse Rate 73 11/18/23 15:11 Respiratory Rate 20 11/18/23 15:11 Blood Pressure 146/84 H 11/18/23 15:11 Pulse Oximetry 97 11/18/23 15:11 Oxygen Delivery Method Room Air 11/18/23 15:11 Medical Decision Making MDM Narrative Medical decision making narrative: Patient was sent here by her PCP to have a third CAT scan performed. Patient thinks she may still have infection. A lot of education was done on sciatica and piriformis syndrome as well. Patient has moderate left lower back pain. Patient will have repeat IV, lab work, and repeat CAT scan at the request of her PCP which is what patient is telling me. Patient's CT did show a acute sigmoid colon diverticulitis with no focal abscess or perforation. I did review the CT report with Dr. Choudhury, radiologist. He was able to review and compare this to the CAT scan of November 01, and November 07. Patient's diverticulitis has resolved from several weeks ago, but there is a new area of diverticulitis today, approximately 10 cm in the sigmoid colon. Patient was given Levaquin and Flagyl. Patient was given 2 different doses of pain and nausea medication in the ER. Patient was given IV fluids. Patient's white blood cells were elevated slightly. Patient was given IV fluids. Patient was admitted to the hospitalist, Dr Drake. I also did speak to Dr. Beebe on the phone as well, he is aware of patient's admission and consultation for complicated diverticulitis secondary to having several different episodes in the last 2 to [address] No acute indication for surgery at this time. Dr Beebe had no other recommendations at this time. Patient is happy for admission, secondary to intractable pain, intermittent nausea. Lab Data Labs: Lab Results 11/18/23 Range/Units 10:42 WBC 12.4 H (4.0-11.0) 10^3/uL RBC 4.04 L (4.20-5.40) 10^6/uL Hgb 13.0 (12.0-16.0) g/dL Hct 40.1 (36.0-48.0) % MCV 99.3 H (81.0-99.0) fL MCH 32.2 (26.7-34.0) pg MCHC 32.4 (29.9-35.2) g/dL RDW 12.5 (11.0-15.0) % Plt Count 369 (150-450) 10^3/uL MPV 9.8 (9.5-13.5) fL Neut % (Auto) 75.7 H (43.0-75.0) % Lymph % (Auto) 14.8 L (20.5-60.0) % Rhea % (Auto) 7.6 (1.7-12.0) % Eos % (Auto) 1.2 (0.9-7.0) % Baso % (Auto) 0.3 (0.2-2.0) % Neut # (Auto) 9.4 H (1.4-6.5) 10^3/uL Lymph # (Auto) 1.8 (1.2-3.8) 10^3/uL Rhea # (Auto) 1.0 H (0.3-0.8) 10^3/uL Eos # (Auto) 0.2 (0.0-0.7) 10^3/uL Baso # (Auto) 0.0 (0.0-0.1) 10^3/uL Abs Immat Gran (auto) 0.05 H (0.00-0.03) 10^3/uL Imm/Tot Granulo (auto) 0.4 (0.0-0.5) % Sodium 137 (136-145) mmol/L Potassium 4.0 (3.5-5.1) mmol/L Chloride 100 (98-107) mmol/L Carbon Dioxide 28.4 (21.0-32.0) mmol/L Anion Gap 12.6 BUN 15.0 (7.0-18.0) mg/dL Creatinine 0.91 (0.55-1.02) mg/dL Est GFR ( Amer) >60 (>=60) Est GFR (Non-Af Amer) >60 (>=60) BUN/Creatinine Ratio 16.5 Glucose 111 H (74-106) mg/dL Lactate 0.9 (0.4-2.0) mmol/L Calcium 8.9 (8.5-10.1) mg/dL Total Bilirubin 1.1 H (0.2-1.0) mg/dL AST 10 L (15-37) U/L ALT 19 (14-59) U/L Alkaline Phosphatase 75 (46-116) U/L Troponin I High Sens 4.3 (4.0-51.3) pg/mL Total Protein 7.9 (6.4-8.2) g/dL Albumin 3.6 (3.4-5.0) g/dL Globulin 4.3 g/dL Albumin/Globulin Ratio 0.8 Lipase 25.0 (16.0-77.0) U/L ECG Data Attestation: I personally reviewed and interpreted this ECG as follows: (EKG interpretation. Normal sinus rhythm at 65 beats a minute. Normal axis deviation. No acute ST elevation, no acute ectopy. QTc of 390) Discharge Plan Discharge Chief Complaint: Abdominal Pain Clinical Impression: Diverticulitis Patient Disposition: Admitted As Inpatient Time of Disposition Decision: 14:17 Discharge Date/Time: 11/18/23 14:40
--- NOTE | 2023-11-18 10:17 | PC.NURSE ---
spoke with ER DR Frederick and asked about the O2 order and straight cath order. Was informed this comes in order set and these are not needed. Pt informed of urine needed with instructions to collect. Pt 99% on ra
--- OUTSIDE RECORDS SUMMARY | 2023-11-18 10:23 | XMS_ITS | CCD ---
Author Organization [facility] Care Team Providers Care Senior Data Modeler Name Role Phone Yesica Sunshine Unavailable FURNARINDER, DR SERVANDO Barbour Admitting Unavailable FURLONG, DR SERVANDO Barbour Attending Unavailable FURLONG, DR SERVANDO Barbour Referring Unavailable FURLONG, DR SERVANDO Barbour Primary Care Unavailable FURLONG, DR SERVANDO Barbour Consulting Unavailable ELENA, PHILIP Admitting Unavailable ELENA, PHILIP Attending Unavailable FURLONG, DR SERVANDO Barbour Primary Care Unavailable LUDMILA, DR YAW Sánchez Consulting Unavailable ELENA, PHILIP Consulting Unavailable KUNS, DR SERA Sánchez Admitting Unavailable KUNS, DR SERA Sánchez Attending Unavailable FURLONG, DR SERVANDO Barbour Primary Care Unavailable K[place], DR JUSTINA Garcia Consulting Unavailable KUNS, DR SERA Sánchez Consulting Unavailable FURLONG, DR SERVANDO Barbour Admitting Unavailable FURLONG, DR SERVANDO Barbour Attending Unavailable FURLONG, DR SERVANDO Barbour Primary Care Unavailable María Hager Unavailable Justina Valdez MD Primary Care Provider JUSTINA VALDEZ Referring Unavailable DEFRANCE, JUSTINA Feliciano Primary Care Unavailable DEFRANCE, JUSTINA Feliciano Referring Unavailable DEFRANCE, JUSTINA Feliciano Primary Care Unavailable DEFRANCE, JUSTINA Feliciano Referring Unavailable DEFRANCE, JUSTINA Feliciano Primary Care Unavailable DEFRANCE, JUSTINA Feliciano Referring Unavailable DEFRANCE, JUSTINA Feliciano Primary Care Unavailable DEFRANCEJUSTINA Attending Unavailable DEFRANCEJUSTINA Referring Unavailable DEFRANCE, UJSTINA Feliciano Primary Care Unavailable DEFRANCEJUSTINA Attending Unavailable DEFRANCE, JUSTINA Feliciano Referring Unavailable DEFRANCE, JUSTINA Feliciano Primary Care Unavailable DEFRANCEJUSTINA Attending Unavailable DEFRANCE, JUSTINA Feliciano Referring Unavailable DEFRANCE, JUSTINA Feliciano Primary Care Unavailable Allergies Allergy Classification Reported Allergen(s) Allergy Type Date of Onset Reaction(s) Facility (3 sources) Amoxicillin Drug Allergy rash [facility] Other (3 sources) Penicillin G Drug Allergy rash [facility] Other (1 source) Iodine (And Iodine Containting Drugs) Drug allergy (disorder) [facility] Repository (3 sources) Penicillins; Translations: [PENICILLINS] Drug allergy (disorder) 3 [facility] Repository (2 sources) Penicillins Propensity to adverse reactions to drug 0 Rash [facility] (4 sources) Iodinated Contrast Media; Translations: [IODINATED CONTRAST MEDIA] Propensity to adverse reactions to drug 0 Hives, Other (See Comments) [facility] Work Phone: Medications Current Medications Medication Drug Class(es) Dates Sig (Normalized) Sig (Original) [id number] 200 actuat albuterol 0.09 mg/actuat metered dose [...] 1.5 mg/ml oral solution (1 source) Uncompetitive C-nlglju-L-asparta te Receptor Antagonist, Sigma-1 Agonist Start: 3 [place] DM 7.5-7.5 MG/5ML 10 ml Orally every [...] 30 g 5 04/04/2023 Active lactobacillus acidophilus [id number] unt / pectin 100 mg oral tablet [...] tablet (1 source) Start: 09-02-19 End: 09-10-19 24 take 6 tablets by mouth once daily, [...] acute or chronic Episodic Diverticulosis and diverticulitis (3 sources) Diverticular disease; Translations: [Diverticulosis of intestine, [...] Range Facility MAMM SCREENING BILATERAL W C coin box collector 10-19-2023 MAMM SCREENING BILATERAL W CAD MAMM [...] AM 1 b MAMM 1 YR Normal [facility] COVID/FLU/RSV RT-PCRon 09-09 SARS-CoV-2 (COVID-19) RNA NAVEEN+probe Ql (Unsp spec) Negative [facility] Other COVID/FLU/RSV RT-PCR Negative [facility] Other VITAMIN D 25 OHon 06-22-2022 VIT D 25-OH 37.8 ng/mL Normal [facility] Comment on above: Performed By: #### V ITAD #### [facility] Laboratory [address] [place] [address] Dr. Vasquez Phillips VIT D RANGES SEE BELOW Normal [facility] Comment on above: Result Comment: <20 ng/mL Vit D deficient 20 - <30 ng/mL Vit D insufficient 30 - 100 ng/mL Vit D sufficient >100 ng/mL Potential Toxicity Performed By: #### V ITAD #### [facility] Laboratory [id number] Vasquez Phillips MG MAMM SCREEN 3D NORM CADon 12-15-2021 MG MAMM SCREEN 3D NORM CAD Patient: MAR GRAY Exam Date: 12/15/2021 : 1965 Gender:F Ordering : PHILIP PARKER Admission #: [id number] Family : Order #: [id number] CLICK HERE TO VIEW EXAM RADIOLOGY REPORT [...] No Treatments None Family Cancers None LOCATION: [facility] BREAST COMPOSITION: Scattered areas fibroglandular density. [...] Baez M.D. on 12/16/2021 at 08:11 Normal [facility] IMAGE-GUIDED PAP W/AGE BASED SCR PROTOCOLSon 07-14-2021 COMMENT Normal [facility] Comment on above: Order Comment: SPLIT 07/09/2021 FROM [id number] Result Comment: This order for age-based cervical cancer and STI screening follows ACOG guidelines(PB 168, 140, FIY965). See individual assays for performing site location. Performed By: #### 9 2513, 84740 #### [facility] [place] [address] Putty Remover: Beka Chicas MD Result Comment: EXPL ANATORY [...] Comment: None given Performed By: #### 9 9745, 31965 #### [facility], [address] [place] [address] Putty Remover: Beka Chicas MD COMMENT: Normal [facility] Comment on above: Result Comment: This case could not be evaluated with computer assisted technology. The slide was manually screened according to routine procedures. Performed By: #### 9 6933, 96139 #### [facility], [address] [place] [address] Putty Remover: Beka Chicas MD SQUARE SHEAR OPERATOR: [facility] Comment on above: Result Comment: JEDarwin, CT(ASCP) CT screening location: [facility] [place] [address]. Performed By: #### 9 4967, 52979 #### [facility] [address] Putty Remover: Beka Chicas MD HPV mRNA E6/E7 Not detected Normal Not Detected [facility] Comment on above: Result Comment: Meth odology: Perl Developer-Mediated Amplification This assay detects E6/E7 viral messenger RNA (mRNA) from 14 high-risk HPV types (16,18,31,33,35,39,45,51,52,56,58,59,66,68). The analytical performance characteristics of this assay have been determined by [employer]. The modifications have not been cleared or approved by the FDA. This assay has been validated pursuant to the CLIA regulations and is used for clinical purposes. For additional information, please refer to http://education.Cladwell.Exaptive/faq/GFN880e5 (This link if provided for information/ educational purposes only.) Performed By: #### 9 4011, 33667 #### [facility] [address] Putty Remover: Beka Chicas MD INTERPRETATION/RESU LT: Normal [facility] Comment on above: Result Comment: Nega tive for intraepithelial lesion or malignancy. Performed By: #### 9 8420, 14385 #### [facility], [address] [place], [place] [address] Putty Remover: Beka Chicas MD LMP: Normal [facility] Comment on above: Result Comment: NONE GIVEN Performed By: #### 9 1414, 40920 #### [facility], [address] [place] [address] Putty Remover: Beka Chicas MD PREV. BX: Normal [facility] Comment on above: Result Comment: NONE GIVEN Performed By: #### 9 1414, 18848 #### [facility], [address] [place] [address] Putty Remover: Beka Chicas MD PREV. PAP: Normal [facility] Comment on above: Result Comment: NONE GIVEN Performed By: #### 9 1414, 66335 #### [facility], [address] [place] [address] Putty Remover: Beka Chicas MD SOURCE: Normal [facility] Comment on above: Result Comment: Vagi na Performed By: #### 9 1414, 62825 #### [facility], [address] [place] [address] Putty Remover: Beka Chicas MD STATEMENT OF ADEQUACY: Normal [facility] Comment on above: Result Comment: SATI SFACTORY FOR EVALUATION Performed By: #### 9 1414, 32461 #### [facility], [address] [place] [address] Putty Remover: Beka Chicas MD COMPREHENSIVE METABOLIC PANE [facility] 07-10-2021 Albumin [Mass/Vol] 4.4 g/dL Normal 3.6-5.1 [facility] Comment on above: Performed By: #### 3 4499, 21218, 28550, 56087, 7600 #### [facility] [address], [address] [place] [address] Putty Remover: Beka Chicas MD Albumin/Globulin [Mass ratio] 1.6 {ratio} Normal 1.0-2.5 [facility] Comment on above: Performed By: #### 3 4499, 80868, 06328, 12700, 7600 #### [facility] of [place] [address] Putty Remover: Beka Chicas MD ALP [Catalytic activity/Vol] 60 U/L Normal 37-153 [facility] Comment on above: Performed By: #### 3 4499, 57632, 46620, 53850, 7600 #### [facility] of [address], [address] [place] [address] Putty Remover: Beka Chicas MD ALT [Catalytic activity/Vol] 16 U/L Normal 6-29 [facility] Comment on above: Performed By: #### 3 4499, 98963, 30243, 04914, 7600 #### [facility] [place] [address] Putty Remover: Beka Chicas MD AST [Catalytic activity/Vol] 18 U/L Normal 10-35 [facility] Comment on above: Performed By: #### 3 4499, 04974, 39808, 59536, 7600 #### [facility] [place] [address] Putty Remover: Beka Chicas MD Bilirubin [Mass/Vol] 0.4 mg/dL Normal 0.2-1.2 [facility] Comment on above: Performed By: #### 3 4499, 87419, 13526, 61196, 7600 #### [facility] [place] [address] Putty Remover: Beka Chicas MD BUN/CREATININE RATIO NOT APPLICABLE Normal 6-22 [facility] Comment on above: Performed By: #### 3 4499, 20124, 52584, 32121, 7600 #### [facility] [place] [address] Putty Remover: Beka Chicas MD Calcium [Mass/Vol] 9.5 mg/dL Normal 8.6-10.4 [facility] Comment on above: Performed By: #### 3 4499, 51795, 76495, 90368, 7600 #### [facility] [address], [address] [place] [address] Putty Remover: Beka Chicas MD Chloride [Moles/Vol] 103 mmol/L Normal 98-110 [facility] Comment on above: Performed By: #### 3 4499, 44271, 52374, 76440, 7600 #### [facility] [address], [address] [place] [address] Putty Remover: Beka Chicas MD CO2 [Moles/Vol] 26 mmol/L Normal 20-32 [facility] Comment on above: Performed By: #### 3 4499, 14951, 05812, 44775, 7600 #### [facility] [address], [address] [place] [address] Putty Remover: Beka Chicas MD Creatinine [Mass/Vol] 0.85 mg/dL Normal 0.50-1.05 [facility] Comment on above: Result Comment: For patients >49 years of age, the reference limit for Creatinine is approximately 13% higher for people identified as -Tanzanian. Performed By: #### 3 4499, 77065, 42854, 10550, 7600 #### [facility] [address], [address] [place] [address] Putty Remover: Beka Chicas MD eGFR NON-AFR. BELARUSIAN 77 mL/min/1.73m2 Normal > OR = 60 [facility] Comment on above: Performed By: #### 3 4499, 75503, 95049, 14023, 7600 #### [facility] [address], [address] [place] [address] Putty Remover: Beka Chicas MD GFR/1.73 sq M.predicted among blacks MDRD (S/P/Bld) [Vol rate/Area] 89 mL/min/{1.73_m2} Normal > OR = 60 [facility] Comment on above: Performed By: #### 3 4499, 70374, 50597, 83363, 7600 #### [facility] [place] [address] Putty Remover: Beka Chicas MD Globulin (S) [Mass/Vol] 2.7 g/dL Normal 1.9-3.7 [facility] Comment on above: Performed By: #### 3 4499, 21459, 89945, 50858, 7600 #### [facility] [place] [address] Putty Remover: Beka Chicas MD Glucose [Mass/Vol] 95 mg/dL Normal 65-99 [facility] Comment on above: Result Comment: Fasting reference interval Performed By: #### 3 4499, 01158, 55616, 27920, 7600 #### [facility] [place] [address] Putty Remover: Beka Chicas MD Potassium [Moles/Vol] 4.2 mmol/L Normal 3.5-5.3 [facility] Comment on above: Performed By: #### 3 4499, 30570, 87263, 39133, 7600 #### [facility] [place] [address] Putty Remover: Beka Chicas MD Protein [Mass/Vol] 7.1 g/dL Normal 6.1-8.1 [facility] Comment on above: Performed By: #### 3 4499, 65316, 57480, 76212, 7600 #### [facility] [place] [address] Putty Remover: Beka Chicas MD Sodium [Moles/Vol] 137 mmol/L Normal 135-146 [facility] Comment on above: Performed By: #### 3 4499, 83238, 02047, 30354, 7600 #### [facility] [place] [address] Putty Remover: Beka Chicas MD Urea nitrogen [Mass/Vol] 18 mg/dL Normal 7-25 [facility] Comment on above: Performed By: #### 3 4499, 67028, 84341, 65617, 7600 #### [facility] [address], [address] [place] [address] Putty Remover: Beka Chicas MD LIPID PANEL, [facility] 12-1 Cholesterol [Mass/Vol] 160 mg/dL Normal <200 [facility] Comment on above: Order Comment: LT O NLY: NURSE COLLECTED - NO SPECIMEN PROVIDED. Performed By: #### 3 4499, 36508, 54176, 24402, 7600 #### [facility] [address], [address] [place] [address] Putty Remover: Beka Chicas MD Cholesterol in HDL [Mass/Vol] 52 mg/dL Normal > OR = 50 [facility] Comment on above: Order Comment: LTC O NLY: NURSE COLLECTED - NO SPECIMEN PROVIDED. Performed By: #### 3 4499, 04623, 49749, 18956, 7600 #### [facility] [address], [address] [place] [address] Putty Remover: Beka Chicas MD Cholesterol in LDL [Mass/Vol] [...] LDL-C. Landen HERNANDEZ et al. DURGA. 2013;310(19): 3778-4264 (http://education.enVerid.Exaptive/faq/XFH792) Performed By: #### 3 4499, 55340, 02754, 36515, 7600 #### [facility] [address], [address] [place] [address] Putty Remover: Beka Chicas MD Cholesterol.total/C holesterol in HDL [Mass ratio] 3.1 {ratio} Normal <5.0 [facility] Comment on above: Order Comment: LT O NLY: NURSE COLLECTED - NO SPECIMEN PROVIDED. Performed By: #### 3 4499, 92878, 89843, 87124, 7600 #### [facility] [address], [address] [place] [address] Putty Remover: Beka Chicas MD NON HDL CHOLESTEROL 108 mg/dL (calc) Normal <130 [facility] Comment on above: Order Comment: LTC O NLY: NURSE COLLECTED - NO SPECIMEN PROVIDED. Result Comment: For patients with diabetes plus 1 major ASCVD risk factor, treating to a non-HDL-C goal of <100 mg/dL (LDL-C of <70 mg/dL) is considered a therapeutic option. Performed By: #### 3 4499, 75119, 66651, 29288, 7600 #### [facility] [address], [address] [place] [address] Putty Remover: Beka Chicas MD Triglyceride [Mass/Vol] 103 mg/dL Normal <150 [facility] Comment on above: Order Comment: LT O NLY: NURSE COLLECTED - NO SPECIMEN PROVIDED. Performed By: #### 3 4499, 15758, 31347, 82640, 7600 #### [facility] [address], [address] [place] [address] Putty Remover: Beka Chicas MD SARS COV 2 AB [...] providers and patients using the following websites: http://[email or web address]/[email or web address]-HCP [email or web address]/[email or web address]-Patients Healthcare Providers: For additional information please refer to: http://education.Cladwell.com/faq/ZMH210 (This link is being provided for informational/educational purposes only.) This test has been authorized by the FDA under an Emergency Use Authorization (EUA) for use by authorized laboratories. The FDA authorized labeling is available on the [employer] website: www.enVerid.com/Covid19. Performed By: #### 3 1669, 38222, 28252, 73098, 2654 #### [facility] [address], [address] [place] [address] Putty Remover: Beka Chicas MD TSH+FREE T4on 07-10-2021 Free T4 [Mass/Vol] 1.1 ng/dL Normal 0.8-1.8 [facility] Comment on above: Performed By: #### 3 4499, 59878, 93031, 53796, 7600 #### [facility] [address], [address] [place] [address] Putty Remover: Beka Chicas MD TSH Qn 0.87 m[IU]/L Normal 0.40-4.50 [facility] Comment on above: Performed By: #### 3 4499, 14599, 92985, 03452, 7600 #### [facility] [address], [address] [place] [address] Putty Remover: Beka Chicas MD VITAMIN D,25-OH,TOTAL,IAon 1 09-10-2020 [...] D, (D2,D3), LC/MS/MS is recommended: order code 27659 (patients >2yrs). See Note 1 Note 1 For additional information, please refer to http://education.enVerid.Exaptive/faq/XTF036 (This link is being provided for informational/ educational purposes only.) Performed By: #### 3 4499, 99939, 63477, 64606, 7600 #### [facility] [address], [address] [place], [place] [address] Putty Remover: Beka Chicas MD Throat Cultureon 05-16-2021 Throat culture Respiratory Results Moderate Normal Respiratory Peyton 2 Days PERFORMED BY: [address] [place] [address] PATHOLOGIST HELIARC WELDER BRIDGET SANTIAGO M.D. [facility] Comment on above: Performed By: #### C UT #### [place] [id number] [facility] Vital Signs Date Time Vital Sign Value Performing Clinician Facility 09-29-2023 15:49-0500 Body height 163.8 cm Justina Valdez MD Work Phone: [facility] 09-29-2023 15:49-0500 Body mass index (BMI) [Ratio] 42.25 kg/m2 Justina Valdez MD Work Phone: [facility] 09-29-2023 15:49-0500 Body weight 113.4 kg Justina Valdez MD Work Phone: [facility] 09-29-2023 15:49-0500 Diastolic blood pressure 84 mm[Hg] Justina Valdez MD Work Phone: [facility] 09-29-2023 15:49-0500 Heart rate 80 /min Justina Valdez MD Work Phone: [facility] 09-29-2023 15:49-0500 Respiratory rate 16 /min Justina Valdez MD Work Phone: [facility] 09-29-2023 15:49-0500 Systolic blood pressure 138 mm[Hg] Justina Valdez MD Work Phone: [facility] 09-02-2023 08:09-0500 Body height 163.8 cm Justina Valdez MD Work Phone: [facility] 09-02-2023 08:09-0500 Body mass index (BMI) [Ratio] 42.17 kg/m2 Justina Valdez MD Work Phone: [facility] 09-02-2023 08:09-0500 Body weight 113.17 kg Justina Valdez MD Work Phone: [facility] 09-02-2023 08:09-0500 Diastolic blood pressure 80 mm[Hg] Justina Valdez MD Work Phone: [facility] 09-02-2023 08:09-0500 Heart rate 80 /min Justina Valdez MD Work Phone: [facility] 09-02-2023 08:09-0500 Respiratory rate 16 /min Justina Valdez MD Work Phone: [facility] 09-02-2023 08:09-0500 Systolic blood pressure 140 mm[Hg] Justina Valdez MD Work Phone: [facility] 09-09-2022 16:50-0500 Body height 162.56 cm María Mendezault Other [facility] 09-09-2022 16:50-0500 Body temperature 99 [degF] María Mendezault Other [facility] Other 09-09-2022 16:50-0500 SaO2% (BldA) [Mass fraction] 98 % María Madan Other [facility] Other 05-16-2021 11:00-0400 Body height 162.56 cm Yesica Ginty Other [facility] Other 05-16-2021 11:00-0400 Body mass index (BMI) [Ratio] 37.76 kg/m2 Yesica Ginty Other [facility] Other 05-16-2021 11:00-0400 Body temperature 97.1 [degF] Yesica Ginty Other [facility] Other 05-16-2021 11:00-0400 Body weight 99.79 kg Yesica Ginty Other [facility] Other 05-16-2021 11:00-0400 SaO2% (BldA) [Mass fraction] 96 % Yesica Ginty Other [facility] Other Encounters Encounter Date Encounter Type Care Provider Facility Start: 11-09-2023 End: 11-09-2023 ambulatory [facility] Start: 10-19-2023 End: 10-20-2023 ambulatory [facility] Start: 09-29-2023 End: 09-29-2023 ambulatory [facility] Start: 09-29-2023 End: 09-29-2023 Office outpatient visit 15 minutes Justina Valdez MD Work Phone: [facility] Comment on above: TOS (thoracic outlet syndrome) (Primary Dx) Start: 09-23-2023 End: 10-24-2023 ambulatory [facility] Start: 09-02-2023 End: 09-02-2023 ambulatory [facility] Start: 09-02-2023 End: 09-02-2023 Office outpatient visit 15 minutes Justina Valdez MD Work Phone: [facility] Comment on above: Lumbar degenerative disc disease (Primary Dx) Start: 08-25-2023 End: 09-23-2023 ambulatory [facility] Start: 08-04-2023 End: 08-25-2023 ambulatory [facility] Start: 09-09-2022 End: 09-09-2022 ambulatory María Hager Other [facility] Other Start: 09-09-2022 Office outpatient vi sit 15 minutes María Hager [facility] Start: 07-19-[address] SERVANDO SCHAEFFER Fac ility:[facility] Start: 06-22-2022 End: 06-23-[address] SERVANDO SCHAEFFER Facility:[facility] Start: 02-02-2022 End: 02-03-[address] SERA HINOJOSA Facility:[facility] Start: 12-15-2021 End: 12-16-2021 ambulatory PHILIP PARKER Facility:[facility] Start: 05-21-2021 Telephone encounter Yesica Sunshine [facility] Start: 05-16-2021 Office outpatient vi sit 15 minutes Yesica Sunshine [facility] Procedures Date Procedure Procedure Detail Performing Clinician Start: 09-29-2023 Follow-up visit Follow-up JUSTINA VALDEZ Start: 09-29-2023 Adult depression screening assessment Justina Valdez MD Work Phone: Start: 09-02-2023 Adult depression screening assessment Justina Valdez MD Work Phone: Throat culture Yesica Sunshine Other Plan of Treatment Date Care Activity Detail Author Start: 03-29-2027 DTaP,Tdap and Td Vaccines (2 - Td or Tdap) DTaP,Tdap and Td Vaccines (2 - Td or Tdap) [facility] Start: 09-28-2024 Adult BMI Screening Adult BMI Screening [facility] Start: 09-28-2024 Depression Screening Depression Screening [facility] Start: 09-28-2024 Tobacco Screening Tobacco Screening [facility] Start: 09-02-2024 Depression Screening Depression Screening [facility] Start: 09-02-2024 Tobacco Screening Tobacco Screening [facility] Start: 06-27-2024 Adult BMI Screening Adult BMI Screening [facility] Start: 03-06-2024 End: 03-06-2024 Patient encounter procedure 03/06/2024 4:15 PM EDT Office Visit [facility] [address] [place] [id number] Justina Valdez MD [address] [place] [address] [facility] Start: 03-25-2023 Influenza vaccination Influenza Vaccine [facility] Start: 2015 Administration of varicella zoster vaccine Zoster (Shingles) Vaccine (1 of 2) [facility] Start: 1986 Screening for malignant neoplasm of cervix Pap Smear [facility] Start: 1983 Adult BMI Follow Up Plan Adult BMI Follow Up Plan [facility] Start: 1983 Diabetic foot examination Diabetic Foot Exam [facility] Start: 1965 Glaucoma screening Diabetic Ophthalmology Exam [facility] Immunizations Immunization Date Immunization Notes Care Provider Sandra bates 03-29-2017 tetanus toxoid, redu debbie diphtheria toxoid, and acellular pertussis vaccine, adsorbed Justina Valdez MD Work Phone: [facility] Payers Date Payer Category Payer Unknown [employer] OUT OF STATE PPO/TRUST [id number] 2021-Present [phone] [address] [place] [address] [id number] 1965 Unknown [id number] 2.16.840.1.734993.3.579.2. 593 1965 Unknown [id number] 2.16.840.1.591563.3.579.2. 593 1965 Unknown [id number] 2.16.840.1.284363.3.579.2. 593 1965 Unknown [id number] 2.16.840.1.348923.3.579.2. 593 1965 Unknown [id number] 2.16.840.1.119444.3.579.2. 1286 1965 Unknown [id number] 2.16.840.1.291186.3.579.2. 1286 1965 Unknown [id number] 2.16.840.1.373809.3.579.2. 1286 1965 Unknown [id number] 2.16.840.1.393112.3.579.2. 1286 1965 Unknown [id number] 2.16.840.1.336324.3.579.2. 1286 1965 Unknown [id number] 2.16.840.1.555039.3.579.2. 1286 1965 Unknown [id number] 2.16.840.1.063638.3.579.2. 1286 1959 [employer] [employer] [id number] 1959 Self-pay Social History Date Type Detail Facility Unknown if ever smoked [facility] Start: 06-21-2022 End: 09-29-2023 Sex Assigned At [facility] Start: 05-18-2022 Tobacco smoking status NHIS Ex-smoker [facility] End: 07-25-2012 History of tobacco use Current smoker [facility] End: 07-25-2012 History of tobacco use Cigarette Smoker [facility] Start: 05-18-2022 End: 06-21-2022 Cigarettes smoked current (pack per day) - Reported 1 [facility] Start: 05-18-2022 Tobacco use and exposure Smokeless tobacco non-user [facility] Start: 09-02-2023 End: 09-29-2023 Alcohol intake Current drinker of alcohol (finding) [facility] Do you belong to any clubs or organizations such as alevism groups, unions, fraternal or athletic groups, or school groups? Yes [facility] Are you now , , , , never or living with a partner? [facility] How often to you hav e a drink containing alcohol? Monthly or less [facility] How many standard dr inks containing alcohol do you have on a typical day? 1 or 2 [facility] How often do you hav e 6 or more drinks on 1 occasion? Never [facility] How hard is it for y ou to pay for the very basics like food, housing, medical care, and heating Not hard at all [facility] Do you feel stress - tense, restless, nervous, or anxious, or unable to sleep at night because your mind is troubled all the time - these days [OSQ] Not at all [facility] Start: 05-18-2022 Alcohol Comment rare-2 drinks/year [facility] Start: 1965 Sex Assigned At Not on file [facility] Clinical Notes 05-16-2021 to 09-29-2023 Justina Valdez MD - 09/29/2023 3:45 PM Kee Valdez MD - 09/02/2023 8:00 AM EST Note Date & Type Note Facility 09-29-2023 History of Present illness Narrative Images from the original note were not included. [address] [place] [id number] SUBJECTIVE: Patient ID: Mar Gray is a [...] referral Home exercises documented in this encounter [facility] 09-02-2023 History of Present illness Narrative Images from the original note were not included. [address] [facility] [id number] SUBJECTIVE: Patient ID: Mar Gray is a [...] this visit: Lumbar degenerative disc disease - [facility] [place], [place]; Future Other orders - cyclobenzaprine (FLEXERIL) 10 mg tablet; Take 1 tablet (10 mg total) by mouth nightly. - predniSONE (STERAPRED DS) 10 mg tablet pack; Take by mouth daily for 8 days. 6 tabs qd x 3 d then 1 less each day with food Follow-up: Hold meloxicam x 8d then reume Prednisone and flexeril ptx documented in this encounter [facility] 09-09-2022 Evaluation note Encounter Date Diagnosis Assessment Notes Aug, Acute cough (ICD-10 - R05.1) Aug, Bronchitis (ICD-10 - J40) Take medications as [...] weeks for the cough to go away [facility] 07-12-2022 NotePROCEDURE: XR FINGER MIN 2 VIEWS COMPARISON: None. HISTORY: Enthesopathy FINDINGS: BONES:No fracture, acute abnormality, or significant arthropathy. SOFT TISSUES:Soft tissue swelling of the third finger EFFUSION:None visible. OTHER: Negative. IMPRESSION: Soft tissue swelling. No acute fracture or significant degenerative changes of the right third finger Electronically authenticated by: JUSTINA TIMMONS Date: 2022-02-02 19:24[facility]10-23-2021 Evaluation note* Encounter Date Diagnosis Assessment [...] understanding and is agreeable with treatment plan [facility] Other Evaluation noteNo InformationNort GPNX Other Evaluation note* Diagnosis Lumbar degenerative disc disease- [facility] Diagnosis TOS (thoracic outlet syndrome)- Primary Brachial plexus lesions [facility] - Reported* Type Description Date Surgical History C section x4 Surgical History cholecystectomy Hospitalization History see above [facility] InstructionsNot on filedocumented in this encounter [facility]* Attachments The following attachments cannot be sent through Care Everywhere. * Thoracic Outlet Syndrome Exercises (Kinyarwanda) [facility] (narrative)* Consultation (Routine) - Authorized Specialty Diagnoses / Procedures Referred By Raquel feliciano Referred To Contact Rehabilitation Diagnoses Lumbar degenerative disc disease Justina Valdez MD [address] [place] [address] [facility] [address] [place] [address] Referral ID Status Reason Start Date Expiration Date Visits Requested Visits Authorized [id number] Authorized Specialty Services Required 09/02/2023 09/01/2024 1 1 Scheduling Instructions Eval and tx low back issues twice a weekx 4-6 weeks and home exercise program [facility] Consultation (Routine) - Authorized Specialty Diagnoses / Procedures Referred By Raquel feliciano Referred To Contact Orthopedic Surgery Diagnoses TOS (thoracic outlet syndrome) Justina Valdez MD [address] [place] [address] Rajendra Hernandez MD [address] [place] [id number] Referral ID Status Reason Start Date Expiration Date Visits Requested Visits Authorized [id number] Authorized Specialty Services Required 09/29/2023 09/28/2024 1 1 [facility] Summary Purpose Family History No Family History Records FoundNo Family History Records FoundNo Family History Records FoundNo Family History Records FoundNo Family History Records Found Advance Directives No Advanced Directives Records FoundNo Advanced Directives Records FoundNo Advanced Directives Records FoundNo Advanced Directives Records FoundNo Advanced Directives Records Found Additional Source Comments INFORMATION SOURCE (unrecogn ized section and content) DATE CREATED AUTHOR 05/22/2021 [facility] DATE CREATED AUTHOR AUTHOR'S ORGANIZ ATION 07/15/2021 [facility] DATE CREATED AUTHOR AUTHOR'S ORGANIZ ATION 07/19/2022 [facility] DATE CREATED AUTHOR AUTHOR'S ORGANIZ ATION 10/24/2023 [facility] DATE CREATED AUTHOR AUTHOR'S ORGANIZ ATION 11/11/2023 [facility] REASON FOR VISIT (unrecogniz ed section and content) Reason Comments Follow-up Reason Comments Back Pain cough, congestion#5 [facility] CRV, SORE THROAT Care Teams (unrecognized sec tion and content) Senior Data Modeler Relationship Specialty Start Date End Date Justina Valdez MD [address] [place] [address] PCP - General Family Medicine 09/06/22 Senior Data Modeler Relationship Specialty Start Date End Date Justina Valdez MD [address] [place] [address] PCP - General Family Medicine 09/06/22 FOR [...] BE BASED ON THE PRIMARY CLINICAL RECORDS. [facility]. provides no warranty or guarantee of the accuracy or completeness of information in this document.
[2023-11-18] MEDS: 0.9 % SODIUM CHLORIDE 1,000 ML 999 ML IV (10:33)
[2023-11-18] MEDS: ONDANSETRON PF 4 MG/2 ML VIAL IV ×3 (10:33→18:07)
[2023-11-18] MEDS: MORPHINE SULFATE 2 MG/ML SYRINGE 4 MG IV (10:33)
[2023-11-18] MEDS: DIPHENHYDRAMINE HCL 50 MG/ML (1ML) VIAL 25 MG IV (10:50)
[2023-11-18] MEDS: FAMOTIDINE/PF 20 MG/2 ML VIAL IV (10:50)
[2023-11-18 10:56] LABS: Basophils Percent Auto 0.3 % (0.2-2.0); Eosinophils Absolute Auto 0.2 10^3/uL (0.0-0.7); Eosinophils Percent Auto 1.2 % (0.9-7.0); Hematocrit 40.1 % (36.0-48.0); Immature Granulocytes Abs Auto 0.05 10^3/uL (0.00-0.03); Immature Granulocytes Pct Auto 0.4 % (0.0-0.5); Lymphocytes Absolute Auto 1.8 10^3/uL (1.2-3.8); Lymphocytes Percent Auto 14.8 % (20.5-60.0); Mean Corpuscular HGB Conc 32.4 g/dL (29.9-35.2); Mean Corpuscular Hemoglobin 32.2 pg (26.7-34.0); Mean Corpuscular Volume 99.3 fL (81.0-99.0); Mean Platelet Volume 9.8 fL (9.5-13.5); Monocytes Percent Auto 7.6 % (1.7-12.0); Neutrophils Absolute Auto 9.4 10^3/uL (1.4-6.5); Neutrophils Percent Auto 75.7 % (43.0-75.0); Platelet Count 369 10^3/uL (150-450); Red Blood Count 4.04 10^6/uL (4.20-5.40); Red Cell Distribution Width 12.5 % (11.0-15.0); White Blood Count 12.4 10^3/uL (4.0-11.0)
[2023-11-18 11:29] LABS: Lactate/Lactic Acid 0.9 mmol/L (0.4-2.0)
[2023-11-18 11:35] LABS: Alanine Aminotransferase 19 U/L (14-59); Albumin Globulin Ratio 0.8; Albumin Level 3.6 g/dL (3.4-5.0); Alkaline Phosphatase 75 U/L (46-116); Anion Gap 12.6; Aspartate Amino Transferase 10 U/L (15-37); BUN Creatinine Ratio 16.5; Bilirubin Total 1.1 mg/dL (0.2-1.0); Calcium 8.9 mg/dL (8.5-10.1); Carbon Dioxide 28.4 mmol/L (21.0-32.0); Chloride 100 mmol/L (98-107); Estimated GFR (African America >60 (>=60); Estimated GFR (Non-African Ame >60 (>=60); Globulin 4.3 g/dL; Glucose 111 mg/dL (74-106); Sodium 137 mmol/L (136-145); Total Protein 7.9 g/dL (6.4-8.2); Troponin I High Sensitivity 4.3 pg/mL (4.0-51.3)
[2023-11-18] MEDS: 0.9 % SODIUM CHLORIDE 1,000 ML 100 ML IV ×2 (12:22→20:39)
[2023-11-18] MEDS: MORPHINE SULFATE 4 MG/ML VIAL IV (14:11)
[2023-11-18] MEDS: METRONIDAZOLE/SODIUM CHLORIDE 500 MG/100 ML PREMIX 100 MG IV (14:12)
[2023-11-18] MEDS: LEVOFLOXACIN IN DEXTROSE 5 % 750 MG/150 ML IV.SOLN 100 MG IV (14:51)
--- NOTE | 2023-11-18 15:35 | P.HP_ITS ---
<Statement entered by Shira Drake DO - 11/18/23 17:01> This documentation has been reviewed and approved. I also seen and evaluated patient and agree with the above findings and plan of care HPI H&P: HPI History of Present Illness Chief complaint: ABDOMINAL PAIN/BACK PAIN Narrative: 11/18/23 1510 This is a 58 yo female pt with a PMHx as outlined below included recurrent diverticulitis (1-2 episodes/yr); who presented to the ED c/o persistent abdominal/back/flank pain. The pt reports that the usual presentation of her acute diverticulitis is back/flank pain. She was seen in the ED on 11/02/23 and diagnosed w/ diverticulitis per CT imaging, and discharged on cefdinir and flagyl. These medications caused significant nausea and her PCP switched her to Cipro on 11/03. She returned to the ED on 11/07 and repeat imaging at that time was negative for diverticulitis but the pt continued to have symptoms. Her PCP renewed her Cipro prescription 2 days ago (11/15) d/t her persistent symptoms, and then sent her to the ED today for CT imaging as she was not improving. Work up in the ED revealed leukocytosis (12.4), and positive acute diverticulitis changes on CT imaging in a new location compared to the imaging from 11/02/23, but with no evidence of abscess. As the pt has failed outpatient treatment she is being admitted to the hospitalist service as an inpatient for IV antibiotics and IVF. At the time of my exam [facility] She continues to report very low back pain (sacral) consistent with her usual diverticular pain. She denies nausea at this time and no recent emesis. She endorses low grade temps at home (99.8). She was recently referred to outpatient GI by her PCP, but was unable to see the GI specialist as she was directed to present to the wrong campus and missed her appointment. She is very frustrated with the frequent recurrence of her diverticulitis. We will broaden her antibiotic coverage with Ertapenem for complicated diverticulitis treatment (PCN allergy). She will be kept NPO for now for complete bowel rest. Opioid HPI Opioid Management Most Recent Opioid Data: Last Pain Scale 7 11/08/23 18:50 Last ORT Total Score 0 11/18/23 15:11 Last ORT Risk Category Low Risk 11/18/23 15:11 Review of Systems ROS Status of ROS 10 or more systems reviewed and unremark able except as noted in history and below PFSH PFS Medical History (Updated 11/18/23 @ 15:39 by Annamaria Rosa NP) Thoracic outlet syndrome of left thoracic outlet ?G54.0 - Brachial plexus disorders (ICD-10) Arm pain, chronic ?M79.603 - Pain in arm, unspecified (ICD-10) ?G89.29 - Other chronic pain (ICD-10) Diverticulitis ?K57.92 - Diverticulitis of intestine, part unspecified, without perforation or abscess without bleeding (ICD-10) Surgical History (Updated 11/18/23 @ 14:59 by Leonora Donis) Hx of cholecystectomy ?Z90.49 - Acquired absence of other specified parts of digestive tract (ICD- 10) H/O: ?Z98.891 - History of uterine scar from previous surgery (ICD-10) Family History (Updated 11/18/23 @ 15:01 by Leonora Donis) Grandfather Family history of CHF (congestive heart failure) Father Family history of cancer Mother Family history of hypertension Social History (Updated 11/18/23 @ 15:03 by Leonora Donis) Within the past year, how often did you have a drink containing alcohol: monthly or less Within the past year, how many standard drinks containing alcohol did you have on a typical day: 1 or 2 Within the past year, how often did you have six or more drinks on one occasion: never Total score: 0 Score interpretation: A score less than 3 is consistent with normal alcohol consumption. Smoking status: Former smoker Non-prescribed substance use: denies use Previous occupational history: [employer] Highest level of school completed/degree received: some college, no degree Are you now , , , , never or living with a partner: In a typical week, how many times do you talk on the telephone with family, friends, or neighbors: 3 or more times per week How often do you get together with friends or relatives: 3 or more times per week How often do you attend jainism or episcopal services: 4 or more times per year Do you belong to any clubs or organizations such as jainism groups unions, fraDeep Nines or athletic groups, or school groups: no Total score: 3 Score interpretation: A score of greater than or equal to 2 indicates the lowest level of social isolation. Little interest or pleasure in doing things: not at all Feeling down, depressed, or hopeless: not at all Feel stressed/tense/nervous/anxious/difficulty sleeping: not at all Gender Identity: female Meds Home Medications and Allergies Home Medications ?Medication ?Instructions ?Recorded ?Confirmed ?Type ciprofloxacin HCl 500 mg tablet 500 mg PO BID 11/18/23 11/18/23 History meloxicam 15 mg tablet 15 mg PO QAM 11/18/23 11/18/23 History ondansetron 4 mg disintegrating 4 mg PO Q4H PRN nausea and vomiting 11/18/23 11/18/23 History tablet Allergies Allergy/AdvReac Type Severity Reaction Status Date / Time Iodinated Contrast Media Allergy Intermediate Verified 11/02/23 17:31 Penicillins Allergy Intermediate Verified 11/02/23 17:31 Exam Constitutional Vital Signs, click to edit/add: Last Vital Signs Temp 98.3 F 11/18/23 15:11 Pulse 73 11/18/23 15:11 Resp 20 11/18/23 15:11 BP 146/84 H 11/18/23 15:11 Pulse Ox 97 11/18/23 15:11 O2 Del Method Room Air 11/18/23 15:11 Common normals: no apparent distress, oriented x3, alert and well nourished General appearance: cooperative Orientation/consciousness: Yes awake HENNE Common normals: normocephalic, head/scalp atraumatic, hearing grossly normal bilaterally, external nose normal and moist oral mucous membranes Eye Common normals: PERRL, EOMs intact bilaterally, conjunctivae normal and no scleral icterus Alignment: alignment normal Eyelid: eyelids normal Neck & C-Spine Common normals: full ROM, supple and no JVD Chest Common normals: inspection of chest normal Chest: symmetrical chest wall rise Respiratory Common normals: normal respiratory effort, no retractions, no use of accessory muscles and clear to auscultation bilaterally Effort & inspection: able to speak in complete sentences Cardio Common normals: no JVD, regular rate, regular rhythm, S1 normal heart sound, S2 normal heart sound, no gallops, no clicks, no rub and peripheral pulses 2+ throughout Heart sounds: murmur (HSM 2/6) GI Common normals: Normal to inspection, nondistended, normoactive bowel sounds present, soft to palpation, no hepatosplenomegaly, no masses and no bruits Palpation: tender (BLQ mildly tender); no guarding, not rigid and no rebound tenderness present Bladder/kidney exam: bladder normal to palpation Back & Pelvis Common normals: thoracic and lumbar spine normal to inspection Coccyx: tenderness on direct palpation Extremity Common normals: normal capillary refill and no pedal edema General: normal exam except as noted; no clubbing and no cyanosis Neuro Olga Coma Scale: GCS not evaluated Common normals: CN's II-XII intact bilaterally, moves all extremities, no focal motor deficits and no sensory deficits noted Speech: speech normal Motor exam: strength 5/5 throughout Psych Common normals: mental status grossly normal, thought process normal, affect normal and activity/motor behavior normal Results Labs Labs: Short CBC 11/18/23 Range/Units 10:42 WBC 12.4 H (4.0-11.0) 10^3/uL Hgb 13.0 (12.0-16.0) g/dL Hct 40.1 (36.0-48.0) % Plt Count 369 (150-450) 10^3/uL BMP 11/18/23 10:42 Sodium 137 Potassium 4.0 Chloride 100 Carbon Dioxide 28.4 BUN 15.0 Creatinine 0.91 Glucose 111 H Calcium 8.9 Liver Function 11/18/23 Range/Units 10:42 Total Bilirubin 1.1 H (0.2-1.0) mg/dL AST 10 L (15-37) U/L ALT 19 (14-59) U/L Alkaline Phosphatase 75 (46-116) U/L Albumin 3.6 (3.4-5.0) g/dL Pulse Oximetry Attestation: I have reviewed the pertinent pulse oximetry results. Imaging CT scan - abdomen: Attestation: I have reviewed the pertinent imaging results. Radiologist's impression: IMPRESSION: Acute sigmoid colon diverticulitis with no focal abscess Begin Addendum #1 Comparison was made to prior exams dated 11/08/2023 and 11/02/2023. The area of sigmoid colon diverticulitis is new from the prior exams. The affected sigmoid colon measures approximately 10 cm in length Assessment and Plan Assessment and Plan (1) Diverticulitis: Assessment and Plan: Acute * Adm inpatient * We expect greater than a 2 midnight stay for medically necessary hospital care including IVPB antibiotics and IVF (pt will be NPO) * Failed outpatient treatment with Cefdinir, flagyl, Cipro * D/C IVPB Levaquin as initiated in the ED * Start IVPB Ertapenem q24h (PCN allergic, unable to use Zosyn) * NS IVF at 150/hr for hydration * NPO for bowel rest * CBC, CMP daily (2) Thoracic outlet syndrome of left thoracic outlet: Assessment and Plan: Chronic * Hold home meloxicam for now while NPO and w/ acute diverticular flare as pt is at increased risk of GI bleeding on NSAIDS Plan DVT prophylaxis with JONATHAN hose and frequent ambulation. Avoid anticoagulation d/t risk for GI bleeding with acute diverticular flare.
[2023-11-18] MEDS: ERTAPENEM SODIUM 1 GM in 0.9 % SODIUM CHLORIDE 50 ML IV (20:41)
[2023-11-19] MEDS: MORPHINE SULFATE 2 MG/ML SYRINGE IV ×2 (01:15→12:17)
--- NOTE | 2023-11-19 02:12 | PC.NURSE ---
After PRN pain medication pusle ox was applied and patient's oxygen levels dropped between 72%- 94%. Pilot Plant Supervisor asked patient is she has sleep apnea but denies a dx. 2L Nasal Cannula applied at this time
[2023-11-19 04:05] VITALS: BP 133/78; PULSE 61; TEMP 36.7; O2SAT 99
[2023-11-19 04:40] LABS: Basophils Percent Auto 0.3 % (0.2-2.0); Eosinophils Absolute Auto 0.3 10^3/uL (0.0-0.7); Hematocrit 33.9 % (36.0-48.0); Hemoglobin 10.8 g/dL (12.0-16.0); Immature Granulocytes Abs Auto 0.03 10^3/uL (0.00-0.03); Immature Granulocytes Pct Auto 0.4 % (0.0-0.5); Lymphocytes Absolute Auto 1.8 10^3/uL (1.2-3.8); Lymphocytes Percent Auto 23.6 % (20.5-60.0); Mean Corpuscular HGB Conc 31.9 g/dL (29.9-35.2); Mean Corpuscular Hemoglobin 32.4 pg (26.7-34.0); Mean Corpuscular Volume 101.8 fL (81.0-99.0); Mean Platelet Volume 10.4 fL (9.5-13.5); Monocytes Absolute Auto 0.7 10^3/uL (0.3-0.8); Monocytes Percent Auto 9.3 % (1.7-12.0); Neutrophils Absolute Auto 4.6 10^3/uL (1.4-6.5); Neutrophils Percent Auto 62.4 % (43.0-75.0); Platelet Count 301 10^3/uL (150-450); Red Blood Count 3.33 10^6/uL (4.20-5.40); Red Cell Distribution Width 12.5 % (11.0-15.0); White Blood Count 7.4 10^3/uL (4.0-11.0)
[2023-11-19 05:02] LABS: Alanine Aminotransferase 14 U/L (14-59); Albumin Globulin Ratio 0.8; Albumin Level 2.9 g/dL (3.4-5.0); Alkaline Phosphatase 61 U/L (46-116); Anion Gap 10.4; Aspartate Amino Transferase 9 U/L (15-37); BUN Creatinine Ratio 14.3; Bilirubin Total 0.5 mg/dL (0.2-1.0); Calcium 8.3 mg/dL (8.5-10.1); Carbon Dioxide 27.7 mmol/L (21.0-32.0); Chloride 104 mmol/L (98-107); Estimated GFR (African America >60 (>=60); Estimated GFR (Non-African Ame >60 (>=60); Globulin 3.6 g/dL; Glucose 88 mg/dL (74-106); Potassium 4.1 mmol/L (3.5-5.1); Sodium 138 mmol/L (136-145); Total Protein 6.5 g/dL (6.4-8.2)
[2023-11-19] MEDS: 0.9 % SODIUM CHLORIDE 1,000 ML 100 ML IV ×2 (06:58→15:54)
--- NOTE | 2023-11-19 09:12 | PM.GSCN ---
History of Present Illness Consult details Consult date: 11/19/23 Reason for consult: abdominal pain Narrative: Pt presented to ED on 11/17 from primary care for abdominal pain and subjective fever/chills. This is her 3rd ED presentation this month for the same complaint and first admission for diverticulitis. She has had about 10 lifetime episodes, at least once per year. Surgery was consulted for failed outpatient treatment for diverticulitis. She presented to primary care for failure to improve on antibiotics outpatient. She reports feeling fever/chills and ongoing pain. She had not been able to eat at all in the past 3 days except for half a banana with her medication. No BM in three days. Pt states her pain is low mid-abdomen that extends laterally and also radiates to the back. The pain is relieved by defecation and also with laying flat or standing. Pain is worsened by hip flexion. She has tried many diet changes to help improve symptoms. She tries to avoid processed foods and foods high in preservatives. Most recent colonoscopy in 2022 revealed multiple diverticuli and small polyps. Next colonoscopy recommended after 5 years. Surgical Hx: cholecystectomy, section x4 Review of Systems ROS Status of ROS 10 or more systems reviewed and unremarkable except as noted in history and below [facility] Medical History (Updated 11/18/23 @ 15:39 by Annamaria Rosa NP) Thoracic outlet syndrome of left thoracic outlet ?G54.0 - Brachial plexus disorders (ICD-10) Arm pain, chronic ?M79.603 - Pain in arm, unspecified (ICD-10) ?G89.29 - Other chronic pain (ICD-10) Diverticulitis ?K57.92 - Diverticulitis of intestine, part unspecified, without perforation or abscess without bleeding (ICD-10) Surgical History (Updated 11/18/23 @ 14:59 by Leonora Donis) Hx of cholecystectomy ?Z90.49 - Acquired absence of other specified parts of digestive tract (ICD-10) H/O: ?Z98.891 - History of uterine scar from previous surgery (ICD-10) Family History (Updated 11/18/23 @ 15:01 by Leonora Donis) Grandfather Family history of CHF (congestive heart failure) Father Family history of cancer Mother Family history of hypertension Social History (Updated 11/18/23 @ 15:03 by Leonora Donis) Within the past year, how often did you have a drink containing alcohol: monthly or less Within the past year, how many standard drinks containing alcohol did you have on a typical day: 1 or 2 Within the past year, how often did you have six or more drinks on one occasion: never Total score: 0 Score interpretation: A score less than 3 is consistent with normal alcohol consumption. Smoking status: Former smoker Non-prescribed substance use: denies use Previous occupational history: [employer] Highest level of school completed/degree received: some college, no degree Are you now , , , , never or living with a partner: In a typical week, how many times do you talk on the telephone with family, friends, or neighbors: 3 or more times per week How often do you get together with friends or relatives: 3 or more times per week How often do you attend restorationist or taoist services: 4 or more times per year Do you belong to any clubs or organizations such as restorationist groups unions, [employer] or athletic groups, or school groups: no Total score: 3 Score interpretation: A score of greater than or equal to 2 indicates the lowest level of social isolation. Little interest or pleasure in doing things: not at all Feeling down, depressed, or hopeless: not at all Feel stressed/tense/nervous/anxious/difficulty sleeping: not at all Gender Identity: female Meds Home Medications and Allergies Home Medications ?Medication ?Instructions ?Recorded ?Confirmed ?Type ciprofloxacin HCl 500 mg tablet 500 mg PO BID 11/18/23 11/18/23 History meloxicam 15 mg tablet 15 mg PO QAM 11/18/23 11/18/23 History ondansetron 4 mg disintegrating 4 mg PO Q4H PRN nausea and vomiting 11/18/23 11/18/23 History tablet Allergies Allergy/AdvReac Type Severity Reaction Status Date / Time Iodinated Contrast Media Allergy Intermediate Verified 11/02/23 17:31 Penicillins Allergy Intermediate Verified 11/02/23 17:31 Exam Narrative Exam Narrative: General: Appears comfortable, non-toxic, alert HENT: NC/AT CV: regular rate, regular rhythm, radial pulses symmetric Pulm: clear to auscultation Abd: soft, hypoactive bowel sounds, tender to palpation in low midline abdomen and LLQ Extremities:No edema, normal ROM Neuro: no focal deficits Psych: euthymic, normal speech, cooperative Constitutional Vital Signs, click to edit/add: Last Vital Signs Temp 98.1 F 11/19/23 04:05 Pulse 61 11/19/23 04:05 Resp 18 11/19/23 04:05 BP 133/78 11/19/23 04:05 Pulse Ox 99 11/19/23 04:05 O2 Del Method Nasal Cannula 11/19/23 04:05 O2 Flow Rate 1 11/19/23 04:05 Results Labs Labs: Abnormal lab results 11/18/23 11/19/23 Range/Units 10:42 04:02 WBC 12.4 H (4.0-11.0) 10^3/uL RBC 4.04 L 3.33 L (4.20-5.40) 10^6/uL Hgb 10.8 L (12.0-16.0) g/dL Hct 33.9 L (36.0-48.0) % MCV 99.3 H 101.8 H (81.0-99.0) fL Neut % (Auto) 75.7 H (43.0-75.0) % Lymph % (Auto) 14.8 L (20.5-60.0) % Neut # (Auto) 9.4 H (1.4-6.5) 10^3/uL [place] # (Auto) 1.0 H (0.3-0.8) 10^3/uL Abs Immat Gran (auto) 0.05 H (0.00-0.03) 10^3/uL Glucose 111 H (74-106) mg/dL Calcium 8.3 L (8.5-10.1) mg/dL Total Bilirubin 1.1 H (0.2-1.0) mg/dL AST 10 L 9 L (15-37) U/L Albumin 2.9 L (3.4-5.0) g/dL Diabetes panel 11/18/23 11/19/23 Range/Units 10:42 04:02 Sodium 137 138 (136-145) mmol/L Potassium 4.0 4.1 (3.5-5.1) mmol/L Chloride 100 104 (98-107) mmol/L Carbon Dioxide 28.4 27.7 (21.0-32.0) mmol/L BUN 15.0 12.0 (7.0-18.0) mg/dL Creatinine 0.91 0.84 (0.55-1.02) mg/dL Glucose 111 H 88 (74-106) mg/dL Calcium 8.9 8.3 L (8.5-10.1) mg/dL AST 10 L 9 L (15-37) U/L ALT 19 14 (14-59) U/L Alkaline Phosphatase 75 61 (46-116) U/L Total Protein 7.9 6.5 (6.4-8.2) g/dL Albumin 3.6 2.9 L (3.4-5.0) g/dL Calcium panel 11/18/23 11/19/23 Range/Units 10:42 04:02 Calcium 8.9 8.3 L (8.5-10.1) mg/dL Albumin 3.6 2.9 L (3.4-5.0) g/dL Pituitary panel 11/18/23 11/19/23 Range/Units 10:42 04:02 Sodium 137 138 (136-145) mmol/L Potassium 4.0 4.1 (3.5-5.1) mmol/L Chloride 100 104 (98-107) mmol/L Carbon Dioxide 28.4 27.7 (21.0-32.0) mmol/L BUN 15.0 12.0 (7.0-18.0) mg/dL Creatinine 0.91 0.84 (0.55-1.02) mg/dL Glucose 111 H 88 (74-106) mg/dL Calcium 8.9 8.3 L (8.5-10.1) mg/dL Adrenal panel 11/18/23 11/19/23 Range/Units 10:42 04:02 Sodium 137 138 (136-145) mmol/L Potassium 4.0 4.1 (3.5-5.1) mmol/L Chloride 100 104 (98-107) mmol/L Carbon Dioxide 28.4 27.7 (21.0-32.0) mmol/L BUN 15.0 12.0 (7.0-18.0) mg/dL Creatinine 0.91 0.84 (0.55-1.02) mg/dL Glucose 111 H 88 (74-106) mg/dL Calcium 8.9 8.3 L (8.5-10.1) mg/dL Total Bilirubin 1.1 H 0.5 (0.2-1.0) mg/dL AST 10 L 9 L (15-37) U/L ALT 19 14 (14-59) U/L Alkaline Phosphatase 75 61 (46-116) U/L Total Protein 7.9 6.5 (6.4-8.2) g/dL Albumin 3.6 2.9 L (3.4-5.0) g/dL All other labs normal. Assessment and Plan Assessment and Plan (1) Diverticulitis: Plan Ms. Gray is a 58F with BMI 42 and recurrent bouts of diverticulitis, now having failed outpatient treatment twice and requiring inpatient admission. WBC count has improved from 12.4 to 7.4 on Invanz, which was initiated on 11/17. Plan: -Clear liquid diet only until pain subsides -Continue IV antibiotics for minimum 3 days -Follow up outpatient once current infection has resolved for consultation with Dr. Boone for robotic colon resection
--- NOTE | 2023-11-19 09:33 | P.PN_ITS ---
Progress Note: Subjective Subjective Interval history: After discussion with her her pain she states is improved, she did discuss with the surgeon and told the surgeon that her pain was a 9. Exam Constitutional Vital Signs, click to edit/add: Last Vital Signs Temp 98.1 F 11/19/23 04:05 Pulse 61 11/19/23 04:05 Resp 18 11/19/23 04:05 BP 133/78 11/19/23 04:05 Pulse Ox 99 11/19/23 04:05 O2 Del Method Nasal Cannula 11/19/23 04:05 O2 Flow Rate 1 11/19/23 04:05 Documenting provider has reviewed patient's vital signs: yes Common normals: no apparent distress Chest Common normals: inspection of chest normal Respiratory Common normals: normal respiratory effort, no retractions, no use of accessory muscles and clear to auscultation bilaterally Cardio Common normals: regular rate and regular rhythm GI Common normals: Normal to inspection, nondistended, normoactive bowel sounds present and soft to palpation; tender (Tenderness worse in left lower quadrant but no rebound tenderness) Extremity Common normals: normal to inspection and full ROM Neuro Common normals: oriented x3, CN's II-XII intact bilaterally and moves all extremities Progress Note: Objective Labs Labs: Short CBC 11/18/23 11/19/23 Range/Units 10:42 04:02 WBC 12.4 H 7.4 (4.0-11.0) 10^3/uL Hgb 13.0 10.8 L (12.0-16.0) g/dL Hct 40.1 33.9 L (36.0-48.0) % Plt Count 369 301 (150-450) 10^3/uL BMP 11/18/23 11/19/23 10:42 04:02 Sodium 137 138 Potassium 4.0 4.1 Chloride 100 104 Carbon Dioxide 28.4 27.7 BUN 15.0 12.0 Creatinine 0.91 0.84 Glucose 111 H 88 Calcium 8.9 8.3 L Liver Function 11/18/23 11/19/23 Range/Units 10:42 04:02 Total Bilirubin 1.1 H 0.5 (0.2-1.0) mg/dL AST 10 L 9 L (15-37) U/L ALT 19 14 (14-59) U/L Alkaline Phosphatase 75 61 (46-116) U/L Albumin 3.6 2.9 L (3.4-5.0) g/dL Progress Note: A&P Assessment and Plan (1) Diverticulitis: (2) Thoracic outlet syndrome of left thoracic outlet: Plan Acute Diverticulitis:-She has been treated as an outpatient for diverticulitis, pain was persisting. CT scan confirms persistence of diverticulitis despite outpatient treatment. Patient placed in inpatient status for at least 3 to 4- day hospital stay for IV antibiotics based on failed outpatient treatment. Continue with Invanz. Leukocytosis on admission has resolved. Uncontrolled hypertension on admission-improved Anemia-possible acute blood loss-consider occult stool if continues to drop. Thoracic outlet syndrome of left thoracic outlet:-Hold off on further treatment at this time. DVT prophylaxis with JONATHAN hose and frequent ambulation. Avoid anticoagulation d/t risk for GI bleeding with acute diverticular flare. Admission status: 3 weeks of failed outpatient treatment for acute diverticulitis, admitted with leukocytosis that resolved, she needs 3 to 4-day stay for IV antibiotics based on surgical recommendations. Medically necessary treatment span 2 midnights. Inpatient status.
[2023-11-19 11:24] VITALS: BP 105/67; PULSE 79; TEMP 37.7; O2SAT 98
[2023-11-19] MEDS: ONDANSETRON PF 4 MG/2 ML VIAL IV ×2 (12:16→21:58)
[2023-11-19 12:23] VITALS: O2SAT 98
[2023-11-19 20:00] VITALS: BP 148/82; PULSE 70; TEMP 37.1; O2SAT 94
[2023-11-19 20:20] VITALS: O2SAT 94
[2023-11-19] MEDS: ERTAPENEM SODIUM 1 GM in 0.9 % SODIUM CHLORIDE 50 ML IV (20:24)
[2023-11-20] MEDS: 0.9 % SODIUM CHLORIDE 1,000 ML 100 ML IV ×3 (02:02→21:33)
[2023-11-20 04:00] VITALS: BP 117/65; PULSE 65; TEMP 36.4; O2SAT 97
[2023-11-20] MEDS: ACETAMINOPHEN 325 MG TABLET 650 MG PO (04:30)
[2023-11-20 05:40] LABS: Alanine Aminotransferase 16 U/L (14-59); Albumin Globulin Ratio 0.8; Albumin Level 3.1 g/dL (3.4-5.0); Alkaline Phosphatase 61 U/L (46-116); Anion Gap 11.4; Aspartate Amino Transferase 11 U/L (15-37); BUN Creatinine Ratio 12.2; Bilirubin Total 0.5 mg/dL (0.2-1.0); Calcium 9.1 mg/dL (8.5-10.1); Carbon Dioxide 29.5 mmol/L (21.0-32.0); Chloride 102 mmol/L (98-107); Estimated GFR (African America >60 (>=60); Estimated GFR (Non-African Ame >60 (>=60); Globulin 3.7 g/dL; Glucose 93 mg/dL (74-106); Potassium 3.9 mmol/L (3.5-5.1); Sodium 139 mmol/L (136-145); Total Protein 6.8 g/dL (6.4-8.2)
[2023-11-20 05:45] LABS: Basophils Percent Auto 0.8 % (0.2-2.0); Eosinophils Absolute Auto 0.4 10^3/uL (0.0-0.7); Eosinophils Percent Auto 6.8 % (0.9-7.0); Hematocrit 35.5 % (36.0-48.0); Hemoglobin 11.4 g/dL (12.0-16.0); Immature Granulocytes Abs Auto 0.01 10^3/uL (0.00-0.03); Immature Granulocytes Pct Auto 0.2 % (0.0-0.5); Lymphocytes Absolute Auto 1.5 10^3/uL (1.2-3.8); Lymphocytes Percent Auto 28.6 % (20.5-60.0); Mean Corpuscular HGB Conc 32.1 g/dL (29.9-35.2); Mean Corpuscular Hemoglobin 32.3 pg (26.7-34.0); Mean Corpuscular Volume 100.6 fL (81.0-99.0); Mean Platelet Volume 10.7 fL (9.5-13.5); Monocytes Absolute Auto 0.5 10^3/uL (0.3-0.8); Monocytes Percent Auto 8.7 % (1.7-12.0); Neutrophils Absolute Auto 2.9 10^3/uL (1.4-6.5); Neutrophils Percent Auto 54.9 % (43.0-75.0); Platelet Count 339 10^3/uL (150-450); Red Blood Count 3.53 10^6/uL (4.20-5.40); Red Cell Distribution Width 11.9 % (11.0-15.0); White Blood Count 5.3 10^3/uL (4.0-11.0)
[2023-11-20] MEDS: ONDANSETRON PF 4 MG/2 ML VIAL IV ×2 (08:02→21:33)
--- NOTE | 2023-11-20 10:03 | P.PN_ITS ---
Progress Note: Subjective Subjective Interval history: Pain is somewhat improved from admission. And has not worse with eating so far. Exam Constitutional Vital Signs, click to edit/add: Last Vital Signs Temp 97.6 F 11/20/23 04:00 Pulse 65 11/20/23 04:00 Resp 16 11/20/23 04:00 BP 117/65 11/20/23 04:00 Pulse Ox 97 11/20/23 04:00 O2 Del Method Room Air 11/20/23 04:00 O2 Flow Rate 1 11/19/23 12:23 Documenting provider has reviewed patient's vital signs: yes Common normals: no apparent distress Chest Common normals: inspection of chest normal Respiratory Common normals: normal respiratory effort, no retractions, no use of accessory muscles and clear to auscultation bilaterally Cardio Common normals: regular rate and regular rhythm GI Common normals: Normal to inspection, nondistended, normoactive bowel sounds present and soft to palpation; tender (Tenderness in left lower quadrant but no rebound -stable from prev exam) Extremity Common normals: normal to inspection and full ROM Neuro Common normals: oriented x3, CN's II-XII intact bilaterally and moves all extremities Progress Note: Objective Labs Labs: Short CBC 11/20/23 Range/Units 04:38 WBC 5.3 (4.0-11.0) 10^3/uL Hgb 11.4 L (12.0-16.0) g/dL Hct 35.5 L (36.0-48.0) % Plt Count 339 (150-450) 10^3/uL BMP 11/20/23 04:38 Sodium 139 Potassium 3.9 Chloride 102 Carbon Dioxide 29.5 BUN 10.0 Creatinine 0.82 Glucose 93 Calcium 9.1 Liver Function 11/20/23 Range/Units 04:38 Total Bilirubin 0.5 (0.2-1.0) mg/dL AST 11 L (15-37) U/L ALT 16 (14-59) U/L Alkaline Phosphatase 61 (46-116) U/L Albumin 3.1 L (3.4-5.0) g/dL Progress Note: A&P Assessment and Plan (1) Diverticulitis: (2) Thoracic outlet syndrome of left thoracic outlet: Plan Acute Diverticulitis:-She has been treated as an outpatient for diverticulitis, pain was persisting. CT scan confirms persistence of diverticulitis despite outpatient treatment. Continue with clear liquids for now, continue with Invanz also as patient overall is improving. At this point may recommend extended course of IV Invanz. Will have PICC line placed Uncontrolled hypertension on admission-improved Anemia-possible acute blood loss-consider occult stool-is improved today Thoracic outlet syndrome of left thoracic outlet:-Hold off on further treatment at this time. DVT prophylaxis with JONATHAN hose and frequent ambulation. Avoid anticoagulation d/t risk for GI bleeding with acute diverticular flare. Admission status: 3 weeks of failed outpatient treatment for acute diverticulitis, admitted with leukocytosis that resolved, she needs 3 to 4-day stay for IV antibiotics based on surgical recommendations. Medically necessary treatment span 2 midnights. Inpatient status.
[2023-11-20 10:41] VITALS: O2SAT 95
[2023-11-20 11:15] VITALS: BP 141/94; PULSE 67; TEMP 36.9; O2SAT 97
--- NOTE | 2023-11-20 11:33 | PC.NURSE ---
[employer] dispatcher notified of need for PICC line placement. They will call back with availability.
[2023-11-20 19:50] VITALS: BP 156/83; PULSE 68; TEMP 36.8; O2SAT 98
[2023-11-20 20:28] VITALS: O2SAT 98
[2023-11-20] MEDS: ERTAPENEM SODIUM 1 GM in 0.9 % SODIUM CHLORIDE 50 ML IV (21:33)
[2023-11-21 03:15] VITALS: BP 130/76; PULSE 60; TEMP 36.8; O2SAT 94
[2023-11-21] MEDS: ACETAMINOPHEN 325 MG TABLET 650 MG PO (04:26)
[2023-11-21 04:50] LABS: Basophils Percent Auto 0.4 % (0.2-2.0); Eosinophils Absolute Auto 0.4 10^3/uL (0.0-0.7); Eosinophils Percent Auto 8.4 % (0.9-7.0); Hematocrit 34.4 % (36.0-48.0); Hemoglobin 11.1 g/dL (12.0-16.0); Immature Granulocytes Abs Auto 0.01 10^3/uL (0.00-0.03); Immature Granulocytes Pct Auto 0.2 % (0.0-0.5); Lymphocytes Absolute Auto 1.3 10^3/uL (1.2-3.8); Lymphocytes Percent Auto 29.5 % (20.5-60.0); Mean Corpuscular HGB Conc 32.3 g/dL (29.9-35.2); Mean Corpuscular Volume 99.1 fL (81.0-99.0); Mean Platelet Volume 10.2 fL (9.5-13.5); Monocytes Absolute Auto 0.4 10^3/uL (0.3-0.8); Monocytes Percent Auto 7.9 % (1.7-12.0); Neutrophils Absolute Auto 2.4 10^3/uL (1.4-6.5); Neutrophils Percent Auto 53.6 % (43.0-75.0); Platelet Count 327 10^3/uL (150-450); Red Blood Count 3.47 10^6/uL (4.20-5.40); Red Cell Distribution Width 11.9 % (11.0-15.0); White Blood Count 4.6 10^3/uL (4.0-11.0)
[2023-11-21 05:05] LABS: Alanine Aminotransferase 14 U/L (14-59); Albumin Globulin Ratio 0.9; Albumin Level 3.1 g/dL (3.4-5.0); Alkaline Phosphatase 57 U/L (46-116); Anion Gap 9.4; Aspartate Amino Transferase 13 U/L (15-37); BUN Creatinine Ratio 9.3; Bilirubin Total 0.4 mg/dL (0.2-1.0); Carbon Dioxide 29.1 mmol/L (21.0-32.0); Chloride 105 mmol/L (98-107); Estimated GFR (African America >60 (>=60); Estimated GFR (Non-African Ame >60 (>=60); Globulin 3.5 g/dL; Glucose 107 mg/dL (74-106); Potassium 3.5 mmol/L (3.5-5.1); Sodium 140 mmol/L (136-145); Total Protein 6.6 g/dL (6.4-8.2)
[2023-11-21 07:53] VITALS: BP 131/82; PULSE 65; TEMP 36.6; O2SAT 96
--- NOTE | 2023-11-21 07:58 | CM.NOTE ---
Rounds made with Dr. Patel, will increase pt's diet today. If pt tolerates increased diet may discharge this afternoon. Pt will need outpatient IV antibiotics at discharge ([facility]). IV Invanz.
[2023-11-21] MEDS: 0.9 % SODIUM CHLORIDE 1,000 ML 100 ML IV (08:00)
--- NOTE | 2023-11-21 08:12 | CM.NOTE ---
Pt will need IV antibiotics daily as outpatient, order received and faxed to [facility] and delivered to [facility].
--- NOTE | 2023-11-21 08:20 | P.DS_ITS ---
DS: Providers Provider Date of admission: 11/18/23 14:40 Primary care physician: JUSTINA KIDD Consults: 11/20/23 10:56 Consult to PICC Line RN Routine Consulting Provider: Simon Patel Reason for consultation: Picc or Midline for 10 days IV AB DS: Diagnosis Discharge Diagnosis (1) Diverticulitis: (2) Thoracic outlet syndrome of left thoracic outlet: Plan Acute Diverticulitis:-She has been treated as an outpatient for diverticulitis, pain was persisting. CT scan confirms persistence of diverticulitis despite outpatient treatment. PICC line placed for 10 more days of IV antibiotics, 2 weeks total Uncontrolled hypertension on admission-stable Anemia-stable Thoracic outlet syndrome of left thoracic outlet:-Stable Admission status: 3 weeks of failed outpatient treatment for acute diverticulitis, admitted with leukocytosis that resolved, she needs 3 to 4-day stay for IV antibiotics based on surgical recommendations. Medically necessary treatment span 2 midnights. Inpatient status. ? DS: Summary Hospital Course Hospital Course: Patient was seen and evaluated as an outpatient for diverticulitis. She was treated with multiple oral antibiotics without any effectiveness. She had continued pain. Repeat CT scan confirms diverticulitis is still progressing. She was placed in inpatient status for prolonged IV antibiotics. She is tolerating the Invanz. At this point the recommendation would be to have her continue with Invanz for 10 more days, 2 weeks total, follow-up with her previous surgeon for possible surgical intervention assuming this is healed and at that time. If she tolerates advance diet this morning she will be discharged home in improving condition. Medication status. Follow-up with her PCP and surgery within the next week. Time Spent with Patient Time attestation: Total time spent providing and/or coordinating discharge services: Exam Constitutional Vital Signs, click to edit/add: Last Vital Signs Temp 97.8 F 11/21/23 07:53 Pulse 65 11/21/23 07:53 Resp 16 11/21/23 07:53 BP 131/82 11/21/23 07:53 Pulse Ox 96 11/21/23 07:53 O2 Del Method Room Air 11/21/23 07:53 O2 Flow Rate 1 11/19/23 12:23 Documenting provider has reviewed patient's vital signs: yes Common normals: no apparent distress Chest Common normals: inspection of chest normal Respiratory Common normals: normal respiratory effort, no retractions, no use of accessory muscles and clear to auscultation bilaterally Cardio Common normals: regular rate and regular rhythm GI Common normals: Normal to inspection, nondistended, normoactive bowel sounds present and soft to palpation; tender (Tenderness in left lower quadrant but no rebound -stable from prev exam) Extremity Common normals: normal to inspection and full ROM Neuro Common normals: oriented x3, CN's II-XII intact bilaterally and moves all extremities DS: Data Data Completed and Pending Labs on day of discharge: Labs from last 24 hours 11/21/23 04:21 WBC 4.6 RBC 3.47 L Hgb 11.1 L Hct 34.4 L MCV 99.1 H MCH 32.0 MCHC 32.3 RDW 11.9 Plt Count 327 MPV 10.2 Neut % (Auto) 53.6 Lymph % (Auto) 29.5 [place] % (Auto) 7.9 Eos % (Auto) 8.4 H Baso % (Auto) 0.4 Neut # (Auto) 2.4 Lymph # (Auto) 1.3 [place] # (Auto) 0.4 Eos # (Auto) 0.4 Baso # (Auto) 0.0 Abs Immat Gran (auto) 0.01 Imm/Tot Granulo (auto) 0.2 Sodium 140 Potassium 3.5 Chloride 105 Carbon Dioxide 29.1 Anion Gap 9.4 BUN 8.0 Creatinine 0.86 Est GFR ( Amer) >60 Est GFR (Non-Af Amer) >60 BUN/Creatinine Ratio 9.3 Glucose 107 H Calcium 9.0 Total Bilirubin 0.4 AST 13 L ALT 14 Alkaline Phosphatase 57 Total Protein 6.6 Albumin 3.1 L Globulin 3.5 Albumin/Globulin Ratio 0.9 Discharge Plan Discharge Disposition: Home, Self-Care Discharge Medications: New Ertapenem Sodium [Invanz] 1 GM 0.9 % Sodium Chloride [Sodium Chloride 0.9% 50 ml] 50 ML 100 mls/hr IV Q24H Ordered By: Simon Patel MD Last Taken: 11/20/23 21:33 100 mls/hr Continued meloxicam 15 mg tablet 15 mg PO QAM ondansetron 4 mg tablet,disintegrating 4 mg PO Q4H PRN (Reason: nausea and vomiting) Discontinued ciprofloxacin HCl 500 mg tablet 500 mg PO BID Print Language: Korean Forms: Portal Instructions
--- OUTSIDE RECORDS SUMMARY | 2023-11-21 09:18 | XMS_ITS | CCD ---
Author Organization [facility] Care Team Providers Care First Aid Officer Name Role Phone Yesica Sunshine Unavailable FURNARINDER, [...] FURLONG, DR SERVANDO Barbour Primary Care Unavailable LUEDERS, DR JUSTINA Garcia Consulting Unavailable KUNS, DR SERA Sánchez Consulting Unavailable FURLONG, DR SERVANDO Barbour Admitting Unavailable FURLONG, DR SERVANDO Barbour Attending Unavailable FURLONG, DR SERVANDO Barbour Primary Care Unavailable María Hager Unavailable Justina Valdez MD Primary Care Provider JUSTINA VALDEZ Referring Unavailable DEFRANCE, JUSTINA Feliciano Primary Care Unavailable DEFRANCE, JUSTIAN Feliciano Referring Unavailable DEFRANCE, JUSTINA Feliciano Primary Care Unavailable DEFRANCEJUSTINA Referring Unavailable DEFRANCE, JUSTINA Feliciano Primary Care Unavailable DEFRANCE, JUSTINA Feliciano Referring Unavailable DEFRANCE, JUSTINA Feliciano Primary Care Unavailable DEFRANCEJUSTINA Attending Unavailable DEFRANCEJUSTINA Referring Unavailable DEFRANCE, JUSTINA Feliciano Primary Care Unavailable DEFRANCEJUSTINA Attending Unavailable DEFRANCEJUSTINA Referring Unavailable DEFRANCEJUSTINA Primary Care Unavailable DEFRANCEJUSTINA Attending Unavailable DEFRANCE, JUSTINA Feliciano Referring Unavailable DEFRANCE, JUSTINA Feliciano Primary Care Unavailable DEFRANCEJUSTINA Attending Unavailable DEFRANCE, JUSTINA Feliciano Referring Unavailable DEFRANCE, JUSTINA Feliciano Primary Care Unavailable Allergies Allergy Classification Reported Allergen(s) Allergy Type Date of Onset Reaction(s) Facility (3 sources) Amoxicillin Drug Allergy rash Re[facility] Other (3 sources) Penicillin G Drug Allergy rash Reasult Other (1 source) Iodine (And Iodine Containting Drugs) Drug allergy (disorder) [facility] Repository (3 sources) Penicillins; Translations: [PENICILLINS] Drug allergy (disorder) 3 [facility] Repository (2 sources) Penicillins Propensity to adverse reactions to drug 0 Rash [facility] (4 sources) Iodinated Contrast Media; Translations: [IODINATED CONTRAST MEDIA] Propensity to adverse reactions to drug 0 Hives, Other (See Comments) [facility] Work Phone: Medications Current Medications Medication Drug Class(es) Dates Sig (Normalized) Sig (Original) [id number] 200 actuat albuterol 0.09 mg/actuat metered dose [...] 1.5 mg/ml oral solution (1 source) Uncompetitive I-wwvuvc-P-asparta te Receptor Antagonist, Sigma-1 Agonist Start: 3 [place] DM 7.5-7.5 MG/5ML 10 ml Orally every [...] 30 g 5 04/04/2023 Active lactobacillus acidophilus [id number] unt / pectin 100 mg oral tablet [...] mg oral tablet (1 source) Start: 09-02-19 24 End: 09-10-19 24 take 6 tablets by [...] Range Facility MAMM SCREENING BILATERAL W C operations engineer 10-19-2023 MAMM SCREENING BILATERAL W CAD MAMM [...] AM 1 b MAMM 1 YR Normal [facility] COVID/FLU/RSV RT-PCRon 09-09 SARS-CoV-2 (COVID-19) RNA NAVEEN+probe Ql (Unsp spec) Negative pyco [facility] [email or web address] Other COVID/FLU/RSV RT-PCR Negative [facility] [email or web address] Other VITAMIN D 25 OHon 06-22-2022 VIT D 25-OH 37.8 ng/mL Normal [facility] Comment on above: Performed By: #### V ITAD #### [facility] [address] [address] [address] Vasquez Phillips VIT D RANGES SEE BELOW Normal [facility] Comment on above: Result Comment: <20 ng/mL Vit D deficient 20 - <30 ng/mL Vit D insufficient 30 - 100 ng/mL Vit D sufficient >100 ng/mL Potential Toxicity Performed By: #### V ITAD #### [facility] [address] [place], [place] [address] Dr. Vasquez Phillips MG MAMM SCREEN 3D NORM CADon 12-15-2021 MG MAMM SCREEN 3D NORM CAD Patient: MAR GRAY Exam Date: 12/15/2021 : 1965 Gender:F Ordering : PHILIP PARKER Admission #: [id number] Family : Order #: [id number] CLICK HERE TO VIEW EXAM RADIOLOGY REPORT [...] No Treatments None Family Cancers None LOCATION: [facility] BREAST COMPOSITION: Scattered areas fibroglandular density. [...] Baez M.D. on 12/16/2021 at 08:11 Normal [facility] IMAGE-GUIDED PAP W/AGE BASED SCR PROTOCOLSon 07-14-2021 COMMENT Normal [facility] Comment on above: Order Comment: SPLIT 07/09/2021 FROM [id number] Result Comment: This order for age-based cervical cancer and STI screening follows ACOG guidelines(PB 168, 140, DXW839). See individual assays for performing site location. Performed By: #### 9 2237, 75506 #### [facility]-[address] [address] Lining Marker: Beka Chicas MD Result Comment: EXPL ANATORY [...] Comment: None given Performed By: #### 9 1411, 06250 #### [facility]-[address], [address] [place] [address] Lining Marker: Beka Chicas MD COMMENT: Normal [facility] Comment on above: Result Comment: This case could not be evaluated with computer assisted technology. The slide was manually screened according to routine procedures. Performed By: #### 9 4054, 38776 #### [facility]-[address], [address] [place] [address] Lining Marker: Beka Chicas MD REFRACTORY FURNACE DESIGNER: [facility] Comment on above: Result Comment: LAURA CT(ASCP) CT screening location: [place] [address]. Performed By: #### 9 9809, 07845 #### [facility]-[address] [address] Lining Marker: Beka Chicas MD HPV mRNA E6/E7 Not detected Normal Not Detected [facility] Comment on above: Result Comment: Meth odology: Social Director-Mediated Amplification This assay detects E6/E7 viral messenger RNA (mRNA) from 14 high-risk HPV types (16,18,31,33,35,39,45,51,52,56,58,59,66,68). The analytical performance characteristics of this assay have been determined by [employer]. The modifications have not been cleared or approved by the FDA. This assay has been validated pursuant to the CLIA regulations and is used for clinical purposes. For additional information, please refer to http://education.[employer].Bunkr/faq/NEM575g6 (This link if provided for information/ educational purposes only.) Performed By: #### 9 8081, 30839 #### [facility]-[address] [address] Lining Marker: Beka Chicas MD INTERPRETATION/RESU LT: Normal [facility] Comment on above: Result Comment: Nega tive for intraepithelial lesion or malignancy. Performed By: #### 9 1419, 69327 #### [facility]-[address], [address] [place] [address] Lining Marker: Beka Chicas MD LMP: Normal [facility] Comment on above: Result Comment: NONE GIVEN Performed By: #### 9 1414, 09919 #### [facility]-[address], [address] [place] [address] Lining Marker: Beka Chicas MD PREV. BX: Normal [facility] Comment on above: Result Comment: NONE GIVEN Performed By: #### 9 1414, 80474 #### [facility], [address] [place] [address] Lining Marker: Beka Chicas MD PREV. PAP: Normal [facility] Comment on above: Result Comment: NONE GIVEN Performed By: #### 9 1414, 53450 #### [facility], [address] [place] [address] Lining Marker: Beka Chicas MD SOURCE: Normal [facility] Comment on above: Result Comment: Vagi na Performed By: #### 9 1414, 31174 #### [facility], [address] [place] [address] Lining Marker: Beka Chicas MD STATEMENT OF ADEQUACY: Normal [facility] Comment on above: Result Comment: SATI SFACTORY FOR EVALUATION Performed By: #### 9 1414, 72796 #### [facility], [address] [place] [address] Lining Marker: Beka Chicas MD COMPREHENSIVE METABOLIC PANE [facility] 07-10-2021 Albumin [Mass/Vol] 4.4 g/dL Normal 3.6-5.1 [facility] Comment on above: Performed By: #### 3 4499, 01935, 05770, 21927, 7600 #### [facility] [address], [address] [place], [place] [address] Lining Marker: Beka Chicas MD Albumin/Globulin [Mass ratio] 1.6 {ratio} Normal 1.0-2.5 [facility] Comment on above: Performed By: #### 3 4499, 28241, 55263, 09422, 7600 #### [facility] of [address], [address] [place] [address] Lining Marker: Beka Chicas MD ALP [Catalytic activity/Vol] 60 U/L Normal 37-153 [facility] Comment on above: Performed By: #### 3 4499, 65016, 60548, 05212, 7600 #### [facility] [address], [address] [place] [address] Lining Marker: Beka Chicas MD ALT [Catalytic activity/Vol] 16 U/L Normal 6-29 [facility] Comment on above: Performed By: #### 3 4499, 83533, 48057, 65530, 7600 #### [facility] of [address], [address] [place] [address] Lining Marker: Beka Chicas MD AST [Catalytic activity/Vol] 18 U/L Normal 10-35 [facility] Comment on above: Performed By: #### 3 4499, 52380, 01677, 31578, 7600 #### [facility] [address], [address] [place] [address] Lining Marker: Beka Chicas MD Bilirubin [Mass/Vol] 0.4 mg/dL Normal 0.2-1.2 [facility] Comment on above: Performed By: #### 3 4499, 59156, 45446, 68254, 7600 #### [facility] [address], [address] [place] [address] Lining Marker: Beka Chicas MD BUN/CREATININE RATIO NOT APPLICABLE Normal 6-22 [facility] Comment on above: Performed By: #### 3 4499, 93819, 25910, 06584, 7600 #### [facility] [address], [address] [place] [address] Lining Marker: Beka Chicas MD Calcium [Mass/Vol] 9.5 mg/dL Normal 8.6-10.4 [facility] Comment on above: Performed By: #### 3 4499, 79092, 39021, 55873, 7600 #### [facility] [address], [address] [place] [address] Lining Marker: Beka Chicas MD Chloride [Moles/Vol] 103 mmol/L Normal 98-110 [facility] Comment on above: Performed By: #### 3 4499, 79061, 01263, 77505, 7600 #### [facility] [address], [address] [place] [address] Lining Marker: Beka Chicas MD CO2 [Moles/Vol] 26 mmol/L Normal 20-32 [facility] Comment on above: Performed By: #### 3 4499, 65037, 16561, 68333, 7600 #### [facility] [address], [address] [place] [address] Lining Marker: Beka Chicas MD Creatinine [Mass/Vol] 0.85 mg/dL Normal 0.50-1.05 [facility] Comment on above: Result Comment: For patients >49 years of age, the reference limit for Creatinine is approximately 13% higher for people identified as -Stateless. Performed By: #### 3 4499, 86943, 58188, 85274, 7600 #### [facility] [place] [address] Lining Marker: Beka Chicas MD eGFR NON-AFR. SLOVAK 77 mL/min/1.73m2 Normal > OR = 60 [facility] Comment on above: Performed By: #### 3 4499, 79893, 67460, 77347, 7600 #### [facility] [place] [address] Lining Marker: Beka Chicas MD GFR/1.73 sq M.predicted among blacks MDRD (S/P/Bld) [Vol rate/Area] 89 mL/min/{1.73_m2} Normal > OR = 60 [facility] Comment on above: Performed By: #### 3 4499, 89152, 32342, 72046, 7600 #### [facility] [address], [address] [place] [address] Lining Marker: Beka Chicas MD Globulin (S) [Mass/Vol] 2.7 g/dL Normal 1.9-3.7 [facility] Comment on above: Performed By: #### 3 4499, 78082, 92913, 81568, 7600 #### [facility] [address], [address] [place] [address] Lining Marker: Beka Chicas MD Glucose [Mass/Vol] 95 mg/dL Normal 65-99 [facility] Comment on above: Result Comment: Fasting reference interval Performed By: #### 3 4499, 86704, 42800, 88828, 7600 #### [facility] of [address], [address] [place] [address] Lining Marker: Beka Chicas MD Potassium [Moles/Vol] 4.2 mmol/L Normal 3.5-5.3 [facility] Comment on above: Performed By: #### 3 4499, 53749, 02707, 25191, 7600 #### [facility] of [address], [address] [place] [address] Lining Marker: Beka Chicas MD Protein [Mass/Vol] 7.1 g/dL Normal 6.1-8.1 [facility] Comment on above: Performed By: #### 3 4499, 23568, 27359, 34588, 7600 #### [facility] of [address], [address] [place] [address] Lining Marker: Beka Chicas MD Sodium [Moles/Vol] 137 mmol/L Normal 135-146 [facility] Comment on above: Performed By: #### 3 4499, 50622, 23992, 29098, 7600 #### [facility] of [address], [address] [place] [address] Lining Marker: Beka Chicas MD Urea nitrogen [Mass/Vol] 18 mg/dL Normal 7-25 [facility] Comment on above: Performed By: #### 3 4499, 87366, 18659, 87440, 7600 #### [facility] [address], [address] [place] [address] Lining Marker: Beka Chicas MD LIPID PANEL, [facility] 12-1 Cholesterol [Mass/Vol] 160 mg/dL Normal <200 [facility] Comment on above: Order Comment: LT O NLY: NURSE COLLECTED - NO SPECIMEN PROVIDED. Performed By: #### 3 4499, 55412, 84913, 21934, 7600 #### [facility] [address], [address] [place] [address] Lining Marker: Beka Chicas MD Cholesterol in HDL [Mass/Vol] 52 mg/dL Normal > OR = 50 [facility] Comment on above: Order Comment: LTC O NLY: NURSE COLLECTED - NO SPECIMEN PROVIDED. Performed By: #### 3 4499, 99397, 27777, 60651, 7600 #### [facility] [address], [address] [place] [address] Lining Marker: Beka Chicas MD Cholesterol in LDL [Mass/Vol] 88 mg/dL Normal [facility] Comment on above: Order Comment: [facility] O NLY: NURSE COLLECTED - NO SPECIMEN PROVIDED. Result Comment: Refe rence range: <100 Desirable range <100 mg/dL for primary prevention; <70 mg/dL for patients with CHD or diabetic patients with > or = 2 CHD risk factors. LDL-C is now calculated using the Jessenia calculation, which is a validated novel method providing better accuracy than the Friedewald equation in the estimation of LDL-C. Landen HERNANDEZ et al. DURGA. 2013;310(19): 8877-0473 (http://education.[employer]Bunkr/faq/IIS930) Performed By: #### 3 4499, 05725, 80204, 93174, 7600 #### [facility] [address], [address] [place] [address] Lining Marker: Beka Chicas MD Cholesterol.total/C holesterol in HDL [Mass ratio] 3.1 {ratio} Normal <5.0 [facility] Comment on above: Order Comment: LT O NLY: NURSE COLLECTED - NO SPECIMEN PROVIDED. Performed By: #### 3 4499, 45560, 73602, 44245, 7600 #### [facility] [address], [address] [place] [address] Lining Marker: Beka Chicas MD NON HDL CHOLESTEROL 108 mg/dL (calc) Normal <130 [facility] Comment on above: Order Comment: LT O NLY: NURSE COLLECTED - NO SPECIMEN PROVIDED. Result Comment: For patients with diabetes plus 1 major ASCVD risk factor, treating to a non-HDL-C goal of <100 mg/dL (LDL-C of <70 mg/dL) is considered a therapeutic option. Performed By: #### 3 4499, 14851, 38103, 58441, 7600 #### [facility] [address], [address] [place] [address] Lining Marker: Beka Chicas MD Triglyceride [Mass/Vol] 103 mg/dL Normal <150 [facility] Comment on above: Order Comment: [facility] O NLY: NURSE COLLECTED - NO SPECIMEN PROVIDED. Performed By: #### 3 4499, 29308, 78398, 83455, 7600 #### [facility] [address], [address] [place] [address] Lining Marker: Beka Chicas MD SARS COV 2 AB [...] providers and patients using the following websites: http://patient.[employer].com/[facility]-HCP http://patient.[employer].com/[facility]ell[facility]-Patients Healthcare Providers: For additional information please refer to: http://education.[employer].com/faq/ITY178 (This link is being provided for informational/educational purposes only.) This test has been authorized by the FDA under an Emergency Use Authorization (EUA) for use by authorized laboratories. The FDA authorized labeling is available on the [employer] website: www.[employer]Bunkr/Covid19. Performed By: #### 3 2319, 57717, 81418, 78843, 8030 #### [facility] [address], [address] [place] [address] Lining Marker: Beka Chicas MD TSH+FREE T4on 07-10-2021 Free T4 [Mass/Vol] 1.1 ng/dL Normal 0.8-1.8 [facility] Comment on above: Performed By: #### 3 4499, 99506, 01094, 02880, 7600 #### [facility] [address] [facility], [address] Lining Marker: Beka Chicas MD TSH Qn 0.87 m[IU]/L Normal 0.40-4.50 [facility] Comment on above: Performed By: #### 3 4499, 78322, 84176, 57347, 7600 #### [facility] [address], [address] [place] [address] Lining Marker: Beka Chicas MD VITAMIN D,25-OH,TOTAL,IAon 1 09-10-2020 [...] D, (D2,D3), LC/MS/MS is recommended: order code [id number] (patients >2yrs). See Note 1 Note 1 For additional information, please refer to http://education.[employer]Bunkr/faq/PAQ652 (This link is being provided for informational/ educational purposes only.) Performed By: #### 3 4499, 21497, 46528, 61200, 7600 #### [facility] [address], [address] [place], [place] [address] Lining Marker: Beka Chicas MD Throat Cultureon 05-16-2021 Throat culture Respiratory Results Moderate Normal Respiratory Peyton 2 Days PERFORMED BY: [address] [place] [address] PATHOLOGIST CARDIAC MONITOR BRIDGET SANTIAGO M.D. Normal [facility] Comment on above: Performed By: #### C [place] #### [address] Vital Signs Date Time Vital Sign Value Performing Clinician Facility 09-29-2023 15:49-0500 Body height 163.8 cm Justina Valdez MD Work Phone: [facility] 09-29-2023 15:49-0500 Body mass index (BMI) [Ratio] 42.25 kg/m2 Justina Valdez MD Work Phone: [facility] 09-29-2023 15:49-0500 Body weight 113.4 kg Justina Valdez MD Work Phone: [facility] 09-29-2023 15:49-0500 Diastolic blood pressure 84 mm[Hg] Justina Valdez MD Work Phone: [facility] 09-29-2023 15:49-0500 Heart rate 80 /min Justina Valdez MD Work Phone: [facility] 09-29-2023 15:49-0500 Respiratory rate 16 /min Justina Valdez MD Work Phone: [facility] 09-29-2023 15:49-0500 Systolic blood pressure 138 mm[Hg] Justina Valdez MD Work Phone: [facility] 09-02-2023 08:09-0500 Body height 163.8 cm Justina Valdez MD Work Phone: [facility] 09-02-2023 08:09-0500 Body mass index (BMI) [Ratio] 42.17 kg/m2 Justina Valedz MD Work Phone: [facility] 09-02-2023 08:09-0500 Body weight 113.17 kg Justina Valdez MD Work Phone: [facility] 09-02-2023 08:09-0500 Diastolic blood pressure 80 mm[Hg] Justina Valdez MD Work Phone: [facility] 09-02-2023 08:09-0500 Heart rate 80 /min Justina Valdez MD Work Phone: [facility] 09-02-2023 08:09-0500 Respiratory rate 16 /min Justina Valdez MD Work Phone: [facility] 09-02-2023 08:09-0500 Systolic blood pressure 140 mm[Hg] Justina Valdez MD Work Phone: [facility] 09-09-2022 16:50-0500 Body height 162.56 cm María Madan Other [facility] Other 09-09-2022 16:50-0500 Body temperature 99 [degF] María Hager Other [facility] Other 09-09-2022 16:50-0500 SaO2% (BldA) [Mass fraction] 98 % María Madan Other [facility] Other 05-16-2021 11:00-0400 Body height 162.56 cm Yesica Ginty Other [facility] Other 05-16-2021 11:00-0400 Body mass index (BMI) [Ratio] 37.76 kg/m2 Yesica Ginty Other [facility] Other 05-16-2021 11:00-0400 Body temperature 97.1 [degF] Yesica Ginty Other [facility] Other 05-16-2021 11:00-0400 Body weight 99.79 kg Yesica Ginty Other [facility] Other 05-16-2021 11:00-0400 SaO2% (BldA) [Mass fraction] 96 % Yesica Ginty Other [facility] Other Encounters Encounter Date Encounter Type Care Provider Facility Start: 11-18-2023 End: 11-18-2023 ambulatory [facility] Start: 11-09-2023 End: 11-09-2023 ambulatory [facility] Start: 10-19-2023 End: 10-20-2023 ambulatory [facility] Start: 09-29-2023 End: 09-29-2023 ambulatory [facility] Start: 09-29-2023 End: 09-29-2023 Office outpatient visit 15 minutes Justina Valdez MD Work Phone: [facility] Comment on above: TOS (thoracic outlet syndrome) (Primary Dx) Start: 09-23-2023 End: 10-24-2023 ambulatory [facility] Start: 09-02-2023 End: 09-02-2023 ambulatory [facility] Start: 09-02-2023 End: 09-02-2023 Office outpatient visit 15 minutes Justina Valdez MD Work Phone: [facility] Comment on above: Lumbar degenerative disc disease (Primary Dx) Start: 08-25-2023 End: 09-23-2023 ambulatory [facility] Start: 08-04-2023 End: 08-25-2023 ambulatory [facility] Start: 09-09-2022 End: 09-09-2022 ambulatory María Hager Other [facility] Other Start: 09-09-2022 Office outpatient vi sit 15 minutes María Hager [facility] Start: 07-19-[address] [...] Td Vaccines (2 - Td or Tdap) [facility] Start: 09-28-2024 Adult BMI Screening Adult BMI Screening [facility] Start: 09-28-2024 Depression Screening Depression Screening [facility] Start: 09-28-2024 Tobacco Screening Tobacco Screening [facility] Start: 09-02-2024 Depression Screening Depression Screening [facility] Start: 09-02-2024 Tobacco Screening Tobacco Screening [facility] Start: 06-27-2024 Adult BMI Screening Adult BMI Screening [facility] Start: 03-06-2024 End: 03-06-2024 Patient encounter procedure 03/06/2024 4:15 PM EDT Office Visit [facility] [address] [place] [id number] Justina Valdez MD [address] [place], [place] [id number] [facility] Start: 03-25-2023 Influenza vaccination Influenza Vaccine [facility] Start: 2015 Administration of varicella zoster vaccine Zoster (Shingles) Vaccine (1 of 2) [facility] Start: 1986 Screening for malignant neoplasm of cervix Pap Smear [facility] Start: 1983 Adult BMI Follow Up Plan Adult BMI Follow Up Plan [facility] Start: 1983 Diabetic foot examination Diabetic Foot Exam [facility] Start: 1965 Glaucoma screening Diabetic Ophthalmology Exam [facility] Immunizations Immunization Date Immunization Notes Care Provider Sandra bates 03-29-2017 tetanus toxoid, redu debbie diphtheria toxoid, and acellular pertussis vaccine, adsorbed Justina Valdez MD Work Phone: [facility] Payers Date Payer Category Payer Unknown [employer] OUT OF STATE PPO/TRUST [id number] 2021-Present [phone] [address] [place] [address] [id number] 1965 Unknown [id number] 2.16.840.1.608179.3.579.2. 593 1965 Unknown [id number] 2.16.840.1.050648.3.579.2. 593 1965 Unknown [id number] 2..840.1.977298.3.579.2. 593 1965 Unknown [id number] 2.16.840.1.572965.3.579.2. 593 1965 Unknown [id number] 2.16.840.1.435590.3.579.2. 1286 1965 Unknown [id number] 2.16.840.1.812525.3.579.2. 1286 1965 Unknown [id number] 2.16.840.1.892839.3.579.2. 1286 1965 Unknown [id number] 2.16.840.1.864802.3.579.2. 1286 1965 Unknown [id number] 2.16.840.1.626636.3.579.2. 1286 1965 Unknown [id number] 2.16.840.1.429788.3.579.2. 1286 1965 Unknown [id number] 2.16.840.1.421046.3.579.2. 1286 1965 Unknown [id number] 2.16.840.1.396874.3.579.2. 1286 1959 [facility] [id number] 1959 Self-pay Social History Date Type Detail Facility Unknown if ever smoked [facility] Other Start: 06-21-2022 End: 09-29-2023 Sex Assigned At [facility] Other Start: 05-18-2022 Tobacco smoking status WIIS Ex-smoker [facility] End: 07-25-2012 History of tobacco use Current smoker [facility] End: 07-25-2012 History of tobacco use Cigarette Smoker [facility] Start: 05-18-2022 End: 06-21-2022 Cigarettes smoked current (pack per day) - Reported 1 [facility] Start: 05-18-2022 Tobacco use and exposure Smokeless tobacco non-user [facility] Start: 09-02-2023 End: 09-29-2023 Alcohol intake Current drinker of alcohol (finding) [facility] Do you belong to any clubs or organizations such as episcopalian groups, unions, fraternal or athletic groups, or school groups? Yes [facility] Are you now , , , , never or living with a partner? [facility] How often to you hav e a drink containing alcohol? Monthly or less [facility] How many standard dr inks containing alcohol do you have on a typical day? 1 or 2 [facility] How often do you hav e 6 or more drinks on 1 occasion? Never [facility] How hard is it for y ou to pay for the very basics like food, housing, medical care, and heating Not hard at all [facility] Do you feel stress - tense, restless, nervous, or anxious, or unable to sleep at night because your mind is troubled all the time - these days [OSQ] Not at all [facility] Start: 05-18-2022 Alcohol Comment rare-2 drinks/year [facility] Start: 1965 Sex Assigned At Not on file [facility] Clinical Notes 05-16-2021 to 09-29-2023 Justina Valdez MD - 09/29/2023 3:45 PM ANTONDachristopher Valdez MD - 09/02/2023 8:00 AM EST Note Date & Type Note Facility 09-29-2023 History of Present illness Narrative Images from the original note were not included. [id number] [facility] [id number] SUBJECTIVE: Patient ID: Mar Gray is a [...] referral Home exercises documented in this encounter [facility] 09-02-2023 History of Present illness Narrative Images from the original note were not included. [address] [facility] [id number] SUBJECTIVE: Patient ID: Mar Gray is a [...] this visit: Lumbar degenerative disc disease - [facility] - [place], [place]; Future Other orders - cyclobenzaprine (FLEXERIL) 10 mg tablet; Take 1 tablet (10 mg total) by mouth nightly. - predniSONE (STERAPRED DS) 10 mg tablet pack; Take by mouth daily for 8 days. 6 tabs qd x 3 d then 1 less each day with food Follow-up: Hold meloxicam x 8d then reume Prednisone and flexeril ptx documented in this encounter [facility] 09-09-2022 Evaluation note Encounter Date Diagnosis [...] weeks for the cough to go away Reasult Other 07-12-2022 NotePROCEDURE: XR FINGER MIN 2 VIEWS COMPARISON: None. HISTORY: Enthesopathy FINDINGS: BONES:No fracture, acute abnormality, or significant arthropathy. SOFT TISSUES:Soft tissue swelling of the third finger EFFUSION:None visible. OTHER: Negative. IMPRESSION: Soft tissue swelling. No acute fracture or significant degenerative changes of the right third finger Electronically authenticated by: JUSTINA TIMMONS Date: 2022-02-02 19:24[facility]10-23-2021 Evaluation note* Encounter Date Diagnosis Assessment [...] understanding and is agreeable with treatment plan Reasult Other Evaluation noteNo InformationN[email or web address] Other Evaluation note* Diagnosis Lumbar degenerative disc disease- Primary documented in this encounter [facility]* Diagnosis TOS (thoracic outlet syndrome)- Primary Brachial plexus lesions documented in this [facility] System[facility] general Narrative - Reported* Type Description Date Surgical History C section x4 Surgical History cholecystectomy Hospitalization History see above Reasult Other InstructionsNot on filedocumented in this encounter [facility]* Attachments The following attachments cannot be sent through Care Everywhere. * Thoracic Outlet Syndrome Exercises (Syrian) [facility] Consultation (Routine) - Authorized Specialty Diagnoses / Procedures Referred By Raquel feliciano Referred To Contact Rehabilitation Diagnoses Lumbar degenerative disc disease Justina Valdez MD [address] [place] [address] [facility] [address] [place] [address] Referral ID Status Reason Start Date Expiration Date Visits Requested Visits Authorized [id number] Authorized Specialty Services Required 09/02/2023 09/01/2024 1 1 Scheduling Instructions Eval and tx low back issues twice a weekx 4-6 weeks and home exercise program [facility] for referral (narrative)* Consultation (Routine) - Authorized Specialty Diagnoses / Procedures Referred By Raquel feliciano Referred To Contact Orthopedic Surgery Diagnoses TOS (thoracic outlet syndrome) Justina Valdez MD [address] [place] [address] Rajendra Hernandez MD [address] [place] [address] Referral ID Status Reason Start Date Expiration Date Visits Requested Visits Authorized [id number] Authorized Specialty Services Required 09/29/2023 09/28/2024 1 1 [facility] Summary Purpose Family History No Family History Records FoundNo Family History Records FoundNo Family History Records FoundNo Family History Records FoundNo Family History Records Found Advance Directives No Advanced Directives Records FoundNo Advanced Directives Records FoundNo Advanced Directives Records FoundNo Advanced Directives Records FoundNo Advanced Directives Records Found Additional Source Comments INFORMATION SOURCE (unrecogn ized section and content) DATE CREATED AUTHOR 05/22/2021 [facility] DATE CREATED AUTHOR AUTHOR'S ORGANIZ ATION 07/15/2021 [facility] DATE CREATED AUTHOR AUTHOR'S ORGANIZ ATION [facility]20[facility] DATE CREATED AUTHOR AUTHOR'S ORGANIZ ATION 10/24/[address] [facility] DATE CREATED AUTHOR AUTHOR'S ORGANIZ ATION 11/20/2023 [facility] REASON FOR VISIT (unrecogniz ed section and content) Reason Comments Follow-up Reason Comments Back Pain cough, congestion#5 [place] CRV, SORE THROAT Care Teams (unrecognized sec tion and content) First Aid Officer Relationship Specialty Start Date End Date Justina Valdez MD [address] [place] [address] PCP - General [facility] Medicine 09/06/22 First Aid Officer Relationship Specialty Start Date End Date Justina Valdez MD [address] [place] [address] PCP - General Family Medicine 09/06/22 FOR [...] BE BASED ON THE PRIMARY CLINICAL RECORDS. [facility]. provides no warranty or guarantee of the accuracy or completeness of information in this document.
--- OUTSIDE RECORDS SUMMARY | 2023-11-21 09:19 | XMS_ITS | CCD ---
Author Organization [facility] Care Team Providers Care Office Copy Selector Name Role Phone Yesica Sunshine Unavailable FURNARINDER, [...] FURLONG, DR SERVANDO [facility] Unavailable GERMANT[place], DR JUSTINA Garcia Consulting Unavailable KUNS, DR SERA Sánchez Consulting Unavailable FURLONG, DR SERVANDO Barbour Admitting Unavailable FURLONG, DR SERVANDO Barbour Attending Unavailable FURLONG, DR SERVANDO [facility] Unavailable María Hager Unavailable Justina Valdez MD Primary Care Provider [phone] JUSTINA VALDEZ Referring Unavailable DEFRANCE, JUSTINA Feliciano [...] Facility (3 sources) Amoxicillin Drug Allergy rash brotips Other (3 sources) Penicillin G Drug Allergy rash [facility] Other (1 source) Iodine (And Iodine Containting Drugs) Drug allergy (disorder) [facility] (3 sources) Penicillins; Translations: [PENICILLINS] Drug allergy (disorder) 3 [facility] (2 sources) Penicillins Propensity to adverse reactions to drug 0 Rash [facility] (4 sources) Iodinated Contrast Media; Translations: [IODINATED CONTRAST MEDIA] Propensity to adverse reactions to drug 0 Hives, Other (See Comments) [facility] Work Phone: Medications Current Medications Medication Drug Class(es) Dates Sig (Normalized) Sig (Original) [id number] 200 actuat albuterol 0.09 mg/actuat metered dose [...] 1.5 mg/ml oral solution (1 source) Uncompetitive Q-abaaoy-Y-asparta te Receptor Antagonist, Sigma-1 Agonist Start: 3 [place] DM 7.5-7.5 MG/5ML 10 ml Orally every [...] 30 g 5 04/04/2023 Active lactobacillus acidophilus [id number] unt / pectin 100 mg oral tablet [...] Range Facility MAMM SCREENING BILATERAL W C inspector technician 10-19-2023 MAMM SCREENING BILATERAL W CAD MAMM [...] AM 1 b MAMM [address] [facility] COVID/FLU/RSV RT-PCRon 09-09 SARS-CoV-2 (COVID-19) RNA NAVEEN+probe Ql (Unsp spec) Negative Ensequence [facility] [employer] Other COVID/FLU/RSV RT-PCR Negative [facility] [employer] Other VITAMIN D 25 OHon 06-22-2022 VIT D 25-OH 37.8 ng/mL Normal [facility] Comment on above: Performed By: #### V ITAD #### [facility] [address] [address] [address] Vasquez Phillips VIT D RANGES SEE BELOW Normal [facility] Comment on above: Result Comment: <20 ng/mL Vit D deficient 20 - <30 ng/mL Vit D insufficient 30 - 100 ng/mL Vit D sufficient >100 ng/mL Potential Toxicity Performed By: #### V ITAD #### [facility] [address], [place] [address] Dr. Vasquez Phillips MG MAMM SCREEN 3D NORM CADon 12-15-2021 MG MAMM SCREEN 3D NORM CAD Patient: MAR GRAY Exam Date: 12/15/2021 : 1965 Gender:F Ordering : PHILIP PARKER Admission #: [id number] Family : Order #: [id number] CLICK HERE TO VIEW EXAM RADIOLOGY REPORT [...] No Treatments None Family Cancers None LOCATION: [facility] BREAST COMPOSITION: Scattered areas fibroglandular density. [...] Baez M.D. on 12/16/2021 at 08:[address] [facility] IMAGE-GUIDED PAP W/AGE BASED SCR PROTOCOLSon 07-14-2021 COMMENT Normal [facility] Comment on above: Order Comment: SPLIT 07/09/2021 FROM [id number] Result Comment: This order for age-based cervical cancer and STI screening follows ACOG guidelines(PB 168, 140, BOV588). See individual assays for performing site location. Performed By: #### 9 8769, 73318 #### [facility] [phone] Nut Sorter Operator: Beka Chicas MD Result Comment: EXPL ANATORY [...] Comment: None given Performed By: #### 9 1419, 41531 #### [facility]-[address], [address] [place] [address] Nut Sorter Operator: Beka Chicas MD COMMENT: Normal [facility] Comment on above: Result Comment: This case could not be evaluated with computer assisted technology. The slide was manually screened according to routine procedures. Performed By: #### 9 1224, 82382 #### [facility]-[address], [address] [place] [address] Nut Sorter Operator: Beka Chicas MD DENTAL HYGIENE PROFESSOR: [facility] Comment on above: Result Comment: LAURA CT(ASCP) CT screening location: [place] [address]. Performed By: #### 9 5465, 12505 #### [facility]-[address] [place] [address] Nut Sorter Operator: Beka Chicas MD HPV mRNA E6/E7 Not detected Normal Not Detected [facility] Comment on above: Result Comment: Meth odology: Stem Crusher-Mediated Amplification This assay detects E6/E7 viral messenger RNA (mRNA) from 14 high-risk HPV types (16,18,31,33,35,39,45,51,52,56,58,59,66,68). The analytical performance characteristics of this assay have been determined by [employer]. The modifications have not been cleared or approved by the FDA. This assay has been validated pursuant to the CLIA regulations and is used for clinical purposes. For additional information, please refer to http://education.Third Age.[employer]well [employer]/faq/WCT948z4 (This link if provided for information/ educational purposes only.) Performed By: #### 9 8554, 10074 #### [facility] [address] Nut Sorter Operator: Beka Chicas MD INTERPRETATION/RESU LT: Normal [facility] Comment on above: Result Comment: Nega tive for intraepithelial lesion or malignancy. Performed By: #### 9 1411, 96954 #### [facility]-[address], [address] [place] [address] Nut Sorter Operator: Beka Chicas MD LMP: Normal [facility] Comment on above: Result Comment: NONE GIVEN Performed By: #### 9 1414, 64147 #### [facility], [address] [place] [address] Nut Sorter Operator: Beka Chicas MD PREV. BX: Normal [facility] Comment on above: Result Comment: NONE GIVEN Performed By: #### 9 1414, 52620 #### [facility], [address] [place] [address] Nut Sorter Operator: Beka Chicas MD PREV. PAP: Normal [facility] Comment on above: Result Comment: NONE GIVEN Performed By: #### 9 1414, 09623 #### [facility], [address] [place] [address] Nut Sorter Operator: Beka Chicas MD SOURCE: Normal [facility] Comment on above: Result Comment: Vagi na Performed By: #### 9 1414, 10508 #### [facility], [address] [place] [address] Nut Sorter Operator: Beka Chicas MD STATEMENT OF ADEQUACY: Normal [facility] Comment on above: Result Comment: SATI SFACTORY FOR EVALUATION Performed By: #### 9 1414, 42121 #### [facility], [address] [place] [address] Nut Sorter Operator: Beka Chicas MD COMPREHENSIVE METABOLIC PANE [facility] 07-10-2021 Albumin [Mass/Vol] 4.4 g/dL Normal 3.6-5.1 [facility] Comment on above: Performed By: #### 3 4499, 12611, 67401, 19459, 7600 #### [facility] [address], [address] [place], [place] [address] Nut Sorter Operator: Beka Chicas MD Albumin/Globulin [Mass ratio] 1.6 {ratio} Normal 1.0-2.5 [facility] Comment on above: Performed By: #### 3 4499, 86729, 37990, 68092, 7600 #### [facility] of [address], [address] [place] [address] Nut Sorter Operator: Beka Chicas MD ALP [Catalytic activity/Vol] 60 U/L Normal 37-153 [facility] Comment on above: Performed By: #### 3 4499, 28913, 70880, 25251, 7600 #### [facility] [address], [address] [place] [address] Nut Sorter Operator: Beka Chicas MD ALT [Catalytic activity/Vol] 16 U/L Normal 6-29 [facility] Comment on above: Performed By: #### 3 4499, 65044, 84755, 45391, 7600 #### [facility] [address], [address] [place] [address] Nut Sorter Operator: Beka Chicas MD AST [Catalytic activity/Vol] 18 U/L Normal 10-35 [facility] Comment on above: Performed By: #### 3 4499, 16708, 44587, 42031, 7600 #### [facility] [address], [address] [place] [address] Nut Sorter Operator: Beka Chicas MD Bilirubin [Mass/Vol] 0.4 mg/dL Normal 0.2-1.2 [facility] Comment on above: Performed By: #### 3 4499, 07853, 69539, 28887, 7600 #### [facility] [address], [address] [place] [address] Nut Sorter Operator: Beka Chicas MD BUN/CREATININE RATIO NOT APPLICABLE Normal 6-22 [facility] Comment on above: Performed By: #### 3 4499, 22095, 68579, 26011, 7600 #### [facility] [address], [address] [place] [address] Nut Sorter Operator: Beka Chicas MD Calcium [Mass/Vol] 9.5 mg/dL Normal 8.6-10.4 [facility] Comment on above: Performed By: #### 3 4499, 89524, 72253, 97422, 7600 #### [facility] [address], [address] [place] [address] Nut Sorter Operator: Beka Chicas MD Chloride [Moles/Vol] 103 mmol/L Normal 98-110 [facility] Comment on above: Performed By: #### 3 4499, 50222, 41238, 70322, 7600 #### [facility] [address], [address] [place] [address] Nut Sorter Operator: Beka Chicas MD CO2 [Moles/Vol] 26 mmol/L Normal 20-32 [facility] Comment on above: Performed By: #### 3 4499, 36670, 03061, 88201, 7600 #### [facility] [address], [address] [place] [address] Nut Sorter Operator: Beka Chicas MD Creatinine [Mass/Vol] 0.85 mg/dL Normal 0.50-1.05 [facility] Comment on above: Result Comment: For patients >49 years of age, the reference limit for Creatinine is approximately 13% higher for people identified as -[place]. Performed By: #### 3 4499, 70593, 90637, 72051, 7600 #### [facility] [address] [place] [address] Nut Sorter Operator: Beka Chicas MD eGFR NON-AFR. ITALIAN 77 mL/min/1.73m2 Normal > OR = 60 [facility] Comment on above: Performed By: #### 3 4499, 85198, 61248, 58494, 7600 #### [facility] [address] [place] [address] Nut Sorter Operator: Beka Chicas MD GFR/1.73 sq M.predicted among blacks MDRD (S/P/Bld) [Vol rate/Area] 89 mL/min/{1.73_m2} Normal > OR = 60 [facility] Comment on above: Performed By: #### 3 4499, 30652, 61520, 81486, 7600 #### [facility] [address], [address] [place] [address] Nut Sorter Operator: Beka Chicas MD Globulin (S) [Mass/Vol] 2.7 g/dL Normal 1.9-3.7 [facility] Comment on above: Performed By: #### 3 4499, 00591, 09503, 15604, 7600 #### [facility] [address], [address] [place] [address] Nut Sorter Operator: Beka Chicas MD Glucose [Mass/Vol] 95 mg/dL Normal 65-99 [facility] Comment on above: Result Comment: Fasting reference interval Performed By: #### 3 4499, 30146, 98383, 90804, 7600 #### [facility] [address], [address] [place] [address] Nut Sorter Operator: Beka Chicas MD Potassium [Moles/Vol] 4.2 mmol/L Normal 3.5-5.3 [facility] Comment on above: Performed By: #### 3 4499, 50926, 17707, 51261, 7600 #### [facility] [address], [address] [place] [address] Nut Sorter Operator: Beka Chicas MD Protein [Mass/Vol] 7.1 g/dL Normal 6.1-8.1 [facility] Comment on above: Performed By: #### 3 4499, 13296, 04974, 26026, 7600 #### [facility] [address], [address] [place] [address] Nut Sorter Operator: Beka Chicas MD Sodium [Moles/Vol] 137 mmol/L Normal 135-146 [facility] Comment on above: Performed By: #### 3 4499, 36440, 33688, 81844, 7600 #### [facility] [address], [address] [place] [address] Nut Sorter Operator: Beka Chicas MD Urea nitrogen [Mass/Vol] 18 mg/dL Normal 7-25 [facility] Comment on above: Performed By: #### 3 4499, 32130, 49770, 78542, 7600 #### [facility] [address], [address] [place] [address] Nut Sorter Operator: Beka Chicas MD LIPID PANEL, [facility] 12-1 Cholesterol [Mass/Vol] 160 mg/dL Normal <200 [facility] Comment on above: Order Comment: LT O NLY: NURSE COLLECTED - NO SPECIMEN PROVIDED. Performed By: #### 3 4499, 57747, 61283, 70180, 7600 #### [facility] [address], [address] [place] [address] Nut Sorter Operator: Beka Chicas MD Cholesterol in HDL [Mass/Vol] 52 mg/dL Normal > OR = 50 [facility] Comment on above: Order Comment: LTC O NLY: NURSE COLLECTED - NO SPECIMEN PROVIDED. Performed By: #### 3 4499, 80133, 26300, 19352, 7600 #### [facility] [address], [address] [place] [address] Nut Sorter Operator: Beka Chicas MD Cholesterol in LDL [Mass/Vol] 88 mg/dL Normal [facility] Comment on above: Order Comment: [facility] O NLY: NURSE COLLECTED - NO SPECIMEN [...] LDL-C. Landen HERNANDEZ et al. DURGA. 2013;310(19): 3851-6934 (http://education.Automile.[employer]well [employer]/faq/AFH888) Performed By: #### 3 4499, 11686, 45590, 23664, 7600 #### [facility] [address], [address] [place] [address] Nut Sorter Operator: Beka Chicas MD Cholesterol.total/C holesterol in HDL [Mass ratio] 3.1 {ratio} Normal <5.0 [facility] Comment on above: Order Comment: LT O NLY: NURSE COLLECTED - NO SPECIMEN PROVIDED. Performed By: #### 3 4499, 85116, 26534, 81660, 7600 #### [facility] [address], [address] [place] [address] Nut Sorter Operator: Beka Chicas MD NON HDL CHOLESTEROL 108 mg/dL (calc) Normal <130 [facility] Comment on above: Order Comment: LT O NLY: NURSE COLLECTED - NO SPECIMEN PROVIDED. Result Comment: For patients with diabetes plus 1 major ASCVD risk factor, treating to a non-HDL-C goal of <100 mg/dL (LDL-C of <70 mg/dL) is considered a therapeutic option. Performed By: #### 3 4499, 17272, 13014, 65382, 7600 #### [facility] [address], [address] [place] [address] Nut Sorter Operator: Beka Chicas MD Triglyceride [Mass/Vol] 103 mg/dL Normal <150 [facility] Comment on above: Order Comment: [facility] O NLY: NURSE COLLECTED - NO SPECIMEN PROVIDED. Performed By: #### 3 4499, 89109, 11082, 67969, 7600 #### [facility] [address], [address] [place] [address] Nut Sorter Operator: Beka Chicas MD SARS COV 2 AB [...] providers and patients using the following websites: http://patient.Third Age.com/[facility]-HCP http://patient.Cold Crates.com/[facility]-Patients Healthcare Providers: For additional information please refer to: http://education.Third Age.com/faq/CDP576 (This link is being provided for informational/educational purposes only.) This test has been authorized by the FDA under an Emergency Use Authorization (EUA) for use by authorized laboratories. The FDA authorized labeling is available on the [employer] website: www.[employer]ile.[employer]/Covid19. Performed By: #### 3 5659, 51536, 97577, 65082, 0710 #### [facility] [address], [address] [place] [address] Nut Sorter Operator: Beka Chicas MD TSH+FREE T4on 07-10-2021 Free T4 [Mass/Vol] 1.1 ng/dL Normal 0.8-1.8 [facility] Comment on above: Performed By: #### 3 4499, 81522, 43473, 40963, 7600 #### [facility] [address] [facility], [address] Nut Sorter Operator: Beka Chicas MD TSH Qn 0.87 m[IU]/L Normal 0.40-4.50 [facility] Comment on above: Performed By: #### 3 4499, 23482, 56707, 55143, 7600 #### [facility] [address], [address] [place] [address] Nut Sorter Operator: Beka Chicas MD VITAMIN D,25-OH,TOTAL,IAon 1 09-10-2020 [...] D, (D2,D3), LC/MS/MS is recommended: order code [id number] (patients >2yrs). See Note 1 Note 1 For additional information, please refer to http://education.Automile.[employer]/faq/QNN240 (This link is being provided for informational/ educational purposes only.) Performed By: #### 3 4499, 08827, 61624, 16875, 7600 #### [facility] [address], [address] [place], [place] [address] Nut Sorter Operator: Beka Chicas MD Throat Cultureon 05-16-2021 Throat culture Respiratory Results Moderate Normal Respiratory Peyton 2 Days PERFORMED BY: [address] [address] [place] [address] PATHOLOGIST VAMP LINER BRIDGET SANTIAGO M.D. Normal [facility] Comment on above: Performed By: #### C UT #### [address] Vital Signs Date Time Vital Sign Value Performing Clinician Facility 09-29-2023 15:49-0500 Body height 163.8 cm Justina Valdez MD Work Phone: [facility] 09-29-2023 15:49-0500 Body mass index (BMI) [Ratio] 42.25 kg/m2 Justina Valdez MD Work Phone: [facility] 09-29-2023 15:49-0500 Body weight 113.4 kg Justina Valdez MD Work Phone: [facility] 09-29-2023 15:49-0500 Diastolic blood pressure 84 mm[Hg] Justina Valdez MD Work Phone: [facility] 09-29-2023 15:49-0500 Heart rate 80 /min Justina Valdez MD Work Phone: [facility] 09-29-2023 15:49-0500 Respiratory rate 16 /min Justina Valdez MD Work Phone: [facility] 09-29-2023 15:49-0500 Systolic blood pressure 138 mm[Hg] Justina Valdez MD Work Phone: [facility] 09-02-2023 08:09-0500 Body height 163.8 cm Justina Valdez MD Work Phone: [facility] 09-02-2023 08:09-0500 Body mass index (BMI) [Ratio] 42.17 kg/m2 Justina Valdez MD Work Phone: [facility] 09-02-2023 08:09-0500 Body weight 113.17 kg Justina Valdez MD Work Phone: [facility] 09-02-2023 08:09-0500 Diastolic blood pressure 80 mm[Hg] Justina Valdez MD Work Phone: [facility] 09-02-2023 08:09-0500 Heart rate 80 /min Justina Valdez MD Work Phone: [email or web address] 09-02-2023 08:09-0500 Respiratory rate 16 /min Justina Valdez MD Work Phone: [email or web address] 09-02-2023 08:09-0500 Systolic blood pressure 140 mm[Hg] Justina Valdez MD Work Phone: [email or web address] 09-09-2022 16:50-0500 Body height 162.56 cm María Madan Other [facility] Other 09-09-2022 16:50-0500 Body temperature 99 [degF] María Hager Other [facility] Other 09-09-2022 16:50-0500 SaO2% (BldA) [Mass fraction] 98 % María Madan Other [facility] Other 05-16-2021 11:00-0400 Body height 162.56 cm Yesica Ginty Other [facility] Other 05-16-2021 11:00-0400 Body mass index (BMI) [Ratio] 37.76 kg/m2 Yesica Ginty Other [facility] Other 05-16-2021 11:00-0400 Body temperature 97.1 [degF] Yesica Ginty Other [facility] Other 05-16-2021 11:00-0400 Body weight 99.79 kg Yesica Ginty Other [facility] Other 05-16-2021 11:00-0400 SaO2% (BldA) [Mass fraction] 96 % Yesica Ginty Other [facility] Other Encounters Encounter Date Encounter Type Care Provider Facility Start: 11-18-2023 End: 11-18-2023 ambulatory [facility] Start: 11-09-2023 End: 11-09-2023 ambulatory [facility] Start: 10-19-2023 End: 10-20-2023 ambulatory [facility] Start: 09-29-2023 End: 09-29-2023 ambulatory [facility] Start: 09-29-2023 End: 09-29-2023 Office outpatient visit 15 minutes Justina Valdez MD Work Phone: [facility] Comment on above: TOS (thoracic outlet syndrome) (Primary Dx) Start: 09-23-2023 End: 10-24-2023 ambulatory [facility] Start: 09-02-2023 End: 09-02-2023 ambulatory [facility] Start: 09-02-2023 End: 09-02-2023 Office outpatient visit 15 minutes Justina Valdez MD Work Phone: [facility] Comment on above: Lumbar degenerative disc disease (Primary Dx) Start: 08-25-2023 End: 09-23-2023 ambulatory [facility] Start: 08-04-2023 End: 08-25-2023 ambulatory [facility] Start: 09-09-2022 End: 09-09-2022 ambulatory María Hager Other [facility] Other Start: 09-09-2022 Office outpatient vi sit 15 minutes María Hager [facility] Start: 07-19-2022 ambulatory [...] Td Vaccines (2 - Td or Tdap) [facility] Start: 09-28-2024 Adult BMI Screening Adult BMI Screening [facility] Start: 09-28-2024 Depression Screening Depression Screening [facility] Start: 09-28-2024 Tobacco Screening Tobacco Screening [facility] Start: 09-02-2024 Depression Screening Depression Screening [facility] Start: 09-02-2024 Tobacco Screening Tobacco Screening [facility] Start: 06-27-2024 Adult BMI Screening Adult BMI Screening [facility] Start: 03-06-2024 End: 03-06-2024 Patient encounter procedure 03/06/2024 4:15 PM EDT Office Visit [facility] [address] [place] [id number] Justina Valdez MD [address] [place], [place] [id number] [facility] Start: 03-25-2023 Influenza vaccination Influenza Vaccine [facility] Start: 2015 Administration of varicella zoster vaccine Zoster (Shingles) Vaccine (1 of 2) [facility] Start: 1986 Screening for malignant neoplasm of cervix Pap Smear [facility] Start: 1983 Adult BMI Follow Up Plan Adult BMI Follow Up Plan [facility] Start: 1983 Diabetic foot examination Diabetic Foot Exam [facility] Start: 1965 Glaucoma screening Diabetic Ophthalmology Exam [facility] Immunizations Immunization Date Immunization Notes Care Provider Sandra bates 03-29-2017 tetanus toxoid, redu debbie diphtheria toxoid, and acellular pertussis vaccine, adsorbed Justina Valdez MD Work Phone: [facility] Payers Date Payer Category Payer Unknown [employer] OUT OF STATE PPO/TRUST [id number] 2021-Present [phone] [address] [place] [address] [id number] 1965 Unknown [id number] 2.16.840.1.306335.3.579.2. 593 1965 Unknown [id number] 2.16.840.1.951272.3.579.2. 593 1965 Unknown [id number] 2..840.1.222136.3.579.2. 593 1965 Unknown [id number] 2.16.840.1.841866.3.579.2. 593 1965 Unknown [id number] 2.16.840.1.833339.3.579.2. 1286 1965 Unknown [id number] 2.16.840.1.094716.3.579.2. 1286 1965 Unknown [id number] 2.16.840.1.465501.3.579.2. 1286 1965 Unknown [id number] 2.16.840.1.742703.3.579.2. 1286 1965 Unknown [id number] 2.16.840.1.679852.3.579.2. 1286 1965 Unknown [id number] 2.16.840.1.268412.3.579.2. 1286 1965 Unknown [id number] 2.16.840.1.488137.3.579.2. 1286 1965 Unknown [id number] 2.16.840.1.700469.3.579.2. 1286 1959 [facility] [id number] 1959 Self-pay Social History Date Type Detail Facility Unknown if ever smoked [facility] Start: 06-21-2022 End: 09-29-2023 Sex Assigned At [facility] Start: 05-18-2022 Tobacco smoking status PRIS Ex-smoker [facility] End: 07-25-2012 History of tobacco use Current smoker [facility] End: 07-25-2012 History of tobacco use Cigarette Smoker [facility] Start: 05-18-2022 End: 06-21-2022 Cigarettes smoked current (pack per day) - Reported 1 [facility] Start: 05-18-2022 Tobacco use and exposure Smokeless tobacco non-user [facility] Start: 09-02-2023 End: 09-29-2023 Alcohol intake Current drinker of alcohol (finding) [facility] Do you belong to any clubs or organizations such as yazidi groups, unions, fraternal or athletic groups, or school groups? Yes [facility] Are you now , , , , never or living with a partner? [facility] How often to you hav e a drink containing alcohol? Monthly or less [facility] How many standard dr inks containing alcohol do you have on a typical day? 1 or 2 [facility] How often do you hav e 6 or more drinks on 1 occasion? Never [facility] How hard is it for y ou to pay for the very basics like food, housing, medical care, and heating Not hard at all [facility] Do you feel stress - tense, restless, nervous, or anxious, or unable to sleep at night because your mind is troubled all the time - these days [OSQ] Not at all [facility] Start: 05-18-2022 Alcohol Comment rare-2 drinks/year [facility] Start: 1965 Sex Assigned At Not on file [facility] Clinical Notes 05-16-2021 to 09-29-2023 Justina Valdez MD - 09/29/2023 3:45 PM ANTONDachristopher Valdez MD - 09/02/2023 8:00 AM EST Note Date & Type Note Facility 09-29-2023 History of Present illness Narrative Images from the original note were not included. [address] [facility] [id number] SUBJECTIVE: Patient ID: Mar Gray is [...] Affect: Mood normal. Behavior: Behavior normal. ASSESSMENT/PLAN: Mra was seen today for follow-up. Diagnoses and [...] referral Home exercises documented in this encounter [facility] 09-02-2023 History of Present illness Narrative Images from the original note were not included. [address] [facility] [id number] SUBJECTIVE: Patient ID: Mar Gray is a [...] this visit: Lumbar degenerative disc disease - [facility] - [place], [place]; Future Other orders - cyclobenzaprine (FLEXERIL) 10 mg tablet; Take 1 tablet (10 mg total) by mouth nightly. - predniSONE (STERAPRED DS) 10 mg tablet pack; Take by mouth daily for 8 days. 6 tabs qd x 3 d then 1 less each day with food Follow-up: Hold meloxicam x 8d then reume Prednisone and flexeril ptx documented in this encounter [facility] 09-09-2022 Evaluation note Encounter Date Diagnosis [...] weeks for the cough to go away brotips Other 07-12-2022 NotePROCEDURE: XR FINGER MIN 2 VIEWS COMPARISON: None. HISTORY: Enthesopathy FINDINGS: BONES:No fracture, acute abnormality, or significant arthropathy. SOFT TISSUES:Soft tissue swelling of the third finger EFFUSION:None visible. OTHER: Negative. IMPRESSION: Soft tissue swelling. No acute fracture or significant degenerative changes of the right third finger Electronically authenticated by: JUSTINA TIMMONS Date: 2022-02-02 19:24[facility]10-23-2021 Evaluation note* Encounter Date Diagnosis Assessment [...] understanding and is agreeable with treatment plan brotips Other Evaluation noteNo [facility] Other Evaluation note* Diagnosis Lumbar degenerative disc disease- Primary [facility] in this [facility]* Diagnosis TOS (thoracic outlet syndrome)- Primary Brachial plexus lesions documented in this [facility] general Narrative - Reported* Type Description Date Surgical History C section x4 Surgical History cholecystectomy Hospitalization History see above brotips Other InstructionsNot on filedocumented in this encounter [facility]* Attachments The following attachments cannot be sent through Care Everywhere. * Thoracic Outlet Syndrome Exercises (Libyan) [facility] (narrative)* Consultation (Routine) - Authorized Specialty Diagnoses / Procedures Referred By Raquel feliciano Referred To Contact Rehabilitation Diagnoses Lumbar degenerative disc disease Justina Valdez MD [address] [place] [address] [facility] [address] [place] [address] Referral ID Status Reason Start Date Expiration Date Visits Requested Visits Authorized [id number] Authorized Specialty Services Required 09/02/2023 09/01/2024 1 1 Scheduling Instructions Eval and tx low back issues twice a weekx 4-6 weeks and home exercise program [facility] for referral (narrative)* Consultation (Routine) - Authorized Specialty Diagnoses / Procedures Referred By Raquel feliciano Referred To Contact Orthopedic Surgery Diagnoses TOS (thoracic outlet syndrome) Justina Valdez MD [address] [place] [address] Rajendra Hernandez MD [address] [place] [address] Referral ID Status Reason Start Date Expiration Date Visits Requested Visits Authorized [id number] Authorized Specialty Services Required 09/29/2023 09/28/2024 1 1 [facility] Summary Purpose Family History No Family History Records FoundNo Family History Records FoundNo Family History Records FoundNo Family History Records FoundNo Family History Records Found Advance Directives No Advanced Directives Records FoundNo Advanced Directives Records FoundNo Advanced Directives Records FoundNo Advanced Directives Records FoundNo Advanced Directives Records Found Additional Source Comments INFORMATION SOURCE (unrecogn ized section and content) DATE CREATED AUTHOR 05/22/2021 [facility] DATE CREATED AUTHOR AUTHOR'S ORGANIZ ATION 07/15/2021 [facility] DATE CREATED AUTHOR AUTHOR'S ORGANIZ ATION 07/19/2022 [facility] DATE CREATED AUTHOR AUTHOR'S ORGANIZ ATION 10/24/2023 [facility] DATE CREATED AUTHOR AUTHOR'S ORGANIZ ATION 11/20/2023 [facility] REASON FOR VISIT (unrecogniz ed section and content) Reason Comments Follow-up Reason Comments Back Pain cough, congestion#5 [place] CRV, SORE THROAT Care Teams (unrecognized sec tion and content) Office Copy Selector Relationship Specialty Start Date End Date Justina Valdez MD [address] [place] [address] PCP - General [facility] Medicine 09/06/22 Office Copy Selector Relationship Specialty Start Date End Date Justina Valdez MD [address] [place] [address] PCP - General Family Medicine 09/06/22 FOR [...] BE BASED ON THE PRIMARY CLINICAL RECORDS. [facility]. provides no warranty or guarantee of the accuracy or completeness of information in this document.
[2023-11-21] MEDS: ERTAPENEM SODIUM 1 GM in 0.9 % SODIUM CHLORIDE 50 ML IV (10:00)
--- NOTE | 2023-11-22 15:06 | CM.DCFOLLOWU ---
Person spoke with: Callie How are you feeling? A little better each day How is your pain? Mild Did you understand your discharge instructions? Yes Do you have any questions about your discharge instructions? No Were you given any prescriptions at discharge? Yes Were you able to get your prescriptions filled? Yes Do you understand how to take your medications as ordered? Yes Do you have any questions about your follow up appointment and do you plan to keep your follow up appointment? No questions and I do plan on going to both appts Is there anything else that you would like to discuss? No Questions/Comments/Concerns/Other:
== END 2023-11-21 12:30 | disposition home or self-care (01) | DRG 392 ==
LOC: ER 14:17 → MS 11-19 07:24
PROVIDERS: Admitting Provider Nurse Practitioner; Emergency Provider Emergency Medicine; PCP Family Medicine; Visit Provider Family Medicine
DX: K57.32 Diverticulitis of large intestine without perforation or abscess without bleeding (principal); G54.0 Brachial plexus disorders; I10 Essential (primary) hypertension; D50.9 Iron deficiency anemia, unspecified; Z90.49 Acquired absence of other specified parts of digestive tract; Z98.891 History of uterine scar from previous surgery
CPT/HCPCS: 36410; 36415; 36592; 74177; 80053; 83605; 83690; 84484; 85025; 87493; 87507; 94761; 96365; 96366; 96367; 96368; 96375; 96376; 99285; C1887; J1335; Q9967

== ENCOUNTER 2023-11-22 07:29 | Outpatient (RCR) | payer BC, SELFPAY ==
[2023-11-22 07:55] VITALS: BP 157/97; PULSE 66; TEMP 36.4; O2SAT 97
[2023-11-22] MEDS: ERTAPENEM SODIUM 1 GM in 0.9 % SODIUM CHLORIDE 50 ML IV (08:39)
--- NOTE | 2023-11-22 08:41 | PC.NURSE ---
0755: Pt. to [facility] amb. for daily antibiotic therapy. Midline in place to left arm. Flushes easily with no blood return. VSS.
--- NOTE | 2023-11-22 14:26 | PC.NURSE ---
0908: Antibiotic therapy completed without s&s of adverse reaction. Midline flushed with saline. Pt. d/c'd amb. to home.
== END 2023-11-22 23:59 | disposition home or self-care (01) ==
LOC: INF 07:29
PROVIDERS: PCP Family Medicine; Visit Provider Family Medicine
DX: K57.92 Diverticulitis of intestine, part unspecified, without perforation or abscess without bleeding (principal)
CPT/HCPCS: 96365; J1335

== ENCOUNTER 2023-12-02 07:39 | Outpatient (RCR) | payer BC, SELFPAY ==
[2023-11-23 00:05] VITALS: BP 157/97; PULSE 66; TEMP 36.4; O2SAT 97
[2023-11-23 08:00] VITALS: BP 145/82; PULSE 68; TEMP 36.9; O2SAT 98
[2023-11-23] MEDS: ERTAPENEM SODIUM 1 GM in 0.9 % SODIUM CHLORIDE 50 ML IV (08:00)
--- NOTE | 2023-11-23 08:32 | PC.NURSE ---
0800: Pt. to [facility] amb. for daily antibiotic. Midline in place to left upper arm and without s&s of infection. Flushes easily. Trace blood return with aspiration. IV Invanz initiated at this time. Given water. Relays c/o low back pain today. Pillow placed and reclined for comfort. 0831: IV Invanz completed. Midline flushed with saline. Tolerated without c/o. D/c'd home amb.
[2023-11-24] MEDS: ERTAPENEM SODIUM 1 GM in 0.9 % SODIUM CHLORIDE 50 ML IV (07:59)
[2023-11-24 08:00] VITALS: BP 138/70; PULSE 69; TEMP 36.9; O2SAT 97
--- NOTE | 2023-11-24 08:02 | PC.NURSE ---
0800 Arrival ambulatory to chair 1. alert oriented. patient still complains of low back pain with movement, but improving. Mid line intact left upper arm, site clear, unable to obtain blood return, flushes easily. 0805 IV antibiotic initiated.
[2023-11-25] MEDS: ERTAPENEM SODIUM 1 GM in 0.9 % SODIUM CHLORIDE 50 ML IV (08:02)
[2023-11-25 08:06] VITALS: BP 126/80; PULSE 65; TEMP 37.1; O2SAT 96
--- NOTE | 2023-11-25 08:09 | PC.NURSE ---
patient states back pain is improving, had appt with PCP had xray of back at [facility], placed on tylenol arthritis twice a day
--- NOTE | 2023-11-25 08:46 | PC.NURSE ---
0830 Noted slight leaking at IV site, dressing removed. dressing, stat lock changed, new dressing applied. reflushed with ns, no leaking noted, aprox 1/2 cm exposed catheter.
[2023-11-26] MEDS: ERTAPENEM SODIUM 1 GM in 0.9 % SODIUM CHLORIDE 50 ML IV (08:18)
[2023-11-26 20:00] VITALS: BP 131/84; PULSE 68; TEMP 36.9; O2SAT 98
[2023-11-27] MEDS: ERTAPENEM SODIUM 1 GM in 0.9 % SODIUM CHLORIDE 50 ML IV (08:03)
[2023-11-27 08:21] VITALS: BP 121/78; PULSE 79; TEMP 36.6; O2SAT 95
[2023-11-28 07:50] VITALS: BP 142/82; PULSE 79; TEMP 36.8; O2SAT 97
[2023-11-28] MEDS: ERTAPENEM SODIUM 1 GM in 0.9 % SODIUM CHLORIDE 50 ML IV (08:00)
--- NOTE | 2023-11-28 08:16 | PC.NURSE ---
0750: Pt. to [facility] amb. for daily antibiotic. Seated in recliner. VSS. IV initiated to left arm without difficulty. Pt. tolerated well. See documentation. 0800: IV Invanz initiated at this time. Pt. given water.
--- NOTE | 2023-11-28 08:39 | PC.NURSE ---
0835: IV Invanz completed at this time without s&s of adverse reaction. IV d/c'd pressure to site. Pt. d/c'd amb. to home.
[2023-11-29] MEDS: ERTAPENEM SODIUM 1 GM in 0.9 % SODIUM CHLORIDE 50 ML IV (08:05)
[2023-11-29 08:06] VITALS: BP 138/82; PULSE 75; TEMP 36.7; O2SAT 96
[2023-11-30 08:00] VITALS: BP 147/86; PULSE 81; TEMP 37; O2SAT 97
[2023-11-30] MEDS: ERTAPENEM SODIUM 1 GM in 0.9 % SODIUM CHLORIDE 50 ML IV (08:03)
--- NOTE | 2023-11-30 08:17 | PC.NURSE ---
0800: Pt. to [facility] amb. for daily antibiotic. Seated in recliner. VSS. Existing [address] to right arm. Flushes easily without c/o pain, no edema. No redness observed. 0803: IV Invanz initiated at this time. Water provided. Declines wanting food.
--- NOTE | 2023-11-30 08:29 | PC.NURSE ---
0828: Infusion completed without s&s of adverse reaction. IV flushed with saline and left in for treatment tomorrow. Site remains without s&s of infiltration. Pt d/c'd amb. to home.
[2023-12-01 08:00] VITALS: BP 158/89; PULSE 70; TEMP 36.1; O2SAT 96
[2023-12-01] MEDS: ERTAPENEM SODIUM 1 GM in 0.9 % SODIUM CHLORIDE 50 ML IV (08:14)
--- NOTE | 2023-12-01 09:06 | PC.NURSE ---
Patient is here for IV antibiotics, she had a 24g in her right forearm, when I flushed it, it started leaking so this was discontinued. I started a 24g on her left forearm with good blood return, she denies any pain at the site. Vitals obtained and stable, She tolerated infusion well and denies any concerns. She was discharged home ambulatory.
[2023-12-02] MEDS: ERTAPENEM SODIUM 1 GM in 0.9 % SODIUM CHLORIDE 50 ML IV (08:02)
[2023-12-02 08:04] VITALS: BP 164/89; PULSE 74; TEMP 36; O2SAT 98
--- NOTE | 2023-12-02 08:06 | PC.NURSE ---
0757: Pt. to [facility] amb. for daily antibiotic. Seated in recliner. VSS. Pt. with existing IV to left forearm. Flushes easily, no edema, and no c/o pain. IV Invanz initiated at this time. Pt given water. Declines snack.
== END 2023-12-02 09:00 | disposition home or self-care (01) ==
LOC: INF 07:39
PROVIDERS: PCP Family Medicine; Visit Provider Family Medicine
DX: K57.92 Diverticulitis of intestine, part unspecified, without perforation or abscess without bleeding (principal)
CPT/HCPCS: 96360; 96365; J1335

== ENCOUNTER 2025-01-01 16:43 | Emergency (ER) | payer BC, SELFPAY ==
[2025-01-01 16:46] VITALS: BP 183/116; PULSE 75; TEMP 36.7; O2SAT 99; BMI 41.2
--- OUTSIDE RECORDS SUMMARY | 2025-01-01 16:50 | XMS_ITS | Encounter Summary ---
Author Organization [facility] Sys [facility] Address [id number] [address] [place] [address] Care Team Providers Care Performance Makeup Artist Name Role Phone PollyVioleta magaña GLOBAL MARKETING INTERN-MATERIALS HANDLER Primary Care Provide r Reason for Visit * Reason Onset Date Comments Transition Of Care 11/22/2023 Encounter Details Date Type Department Care Team (Late st Contact Info) Description 11/22[facility]2023 [facility] [address] [place] [phone] Saloni Pinedo, REJI Transition Of Care Social History Tobacco Use Types Packs/Day Years Used Date Smoking Tobacco: Former Cigarettes 1 2012 Smokeless Tobacco: Never Alcohol Use Standard Drinks/Week Comments Yes 0 (1 standard drink = 0.6 oz pur e alcohol) rare-2 drinks/year Social Connection and Isolat ion Panel [NHANES] Answer Date Recorded In a typical week, how many times do you talk on the phone with family, friends, or neighbors? More than three times a week 06/21/2022 How often do you get togethe r with friends or relatives? More than three times a week 06/21/2022 How often do you attend chur or jain services? More than 4 times per year 06/21/2022 Do you belong to any clubs o r organizations such as worship groups, unions, fraternal or athletic groups, or school groups? Yes 06/21/2022 How often do you attend meet ings of the clubs or organizations you belong to? More than 4 times per year 06/21/2022 Are you , , di vorced, , never , or living with a partner? 06/21/2022 AUDIT-C Answer Date Recorded Q1: How often do you have a drink containing alc ohol? Monthly or less 06/21/2022 Q2: How many drinks containi ng alcohol do you have on a typical day when you are drinking? 1 or 2 06/21/2022 Q3: How often do you have si x or more drinks on one occasion? Never 06/21/2022 Overall Financial Resource Strain (CARDIA) Answe r Date Recorded How hard is it for you to pa y for the very basics like food, housing, medical care, and heating? Not hard at all 05/30/2023 PHQ-2 Answer Date Recorded Total Score 0 11/24/2023 [facility] of Occupat [facility] - Occupational Stress Questionnaire Answer Date Recorded Do you feel stress - tense, restless, nervous, or anxious, or unable to sleep at night because your mind is troubled all the time - these days? Not at all 06/21/2022 Exercise Vital Sign Answer Date Recorde d On average, how many days pe r week do you engage in moderate to strenuous exercise (like a brisk walk)? 0 days 06/21/2022 On average, how many minutes do you engage in exercise at this level? 0 min 06/21/2022 PRAPARE - Transportation Answer Date Re corded In the past 12 months, has l ack of transportation kept you from medical appointments or from getting medications? No 12/2022 In the past 12 months, has l ack of transportation kept you from meetings, work, or from getting things needed for daily living? No 05/30/2023 Housing Instability Answer Date Recorde d Are you worried or concerned that in the next two months you may not have stable housing that you own, rent or stay in as a part of a household? No 05/30/2023 Childcare Answer Date Recorded Do problems getting child ca re make it difficult for you to work or study? No 06/21/2022 Employment Answer Date Recorded Do you need help finding a [facility] and/or a training program? No 06/21/2022 Hunger Screening Answer Date Recorded Within the past 12 months we worried whether our food would run out before we got money to buy more. Never True 11/24/2023 Within the past 12 months th e food we bought just didn't last and we didn't have money to get more. Never True 11/24/2023 Purpose - Life Answer Date Recorded I have a purpose and direction in my life. Stron gly Agree 06/21/2022 Comments No Sex and Gender Information Value Date Recorded Sex Assigned at Not on file Legal Sex Female 11:32 AM EDT Gender Identity Not on file Sexual Orientation Not on file documented as of this encounter Miscellaneous Notes * Telephone Encounter - Saloni Pinedo RN - 11/22/2023 9:30 AM EDT Images from the original note were not included. Transition of Care Additional Questions/Concerns Requiring PCP Follow-Up: This documentation is being used for Transition of Care purposes: Yes Goal: Patient will demonstrate a safe transition from hospital to home. Diagnosis on Discharge: Discharge Specialty: Gastroenterology Name of Discharging Facility: [facility] Date of Facility Discharge: 11/18/23 - 11/21/23 Date of Interactive Contact and Name of Assistant Professor Of Anthropology: Medication Review Completed: Yes Medication Reconciliation Questions/Concerns: Invanz 1 GM 100ml/hr daily x 10 more days Patient states she has a midline, not PICC. She is to go to hospital to have ATB infusion completed. Follow Up Appointments with Providers: Primary: Rao Butt MD [facility]OR[facility] 11/24/23 @ 3:00 Specialty: Surgery Dr Beebe/ Shira Valera 12/08/23 @ 10:00 Specialty: Specialty: Review of Pending Lab/Diagnostic Tests and Plan for Completion: PICC placed for 10 additional days of IV ATB- Invanz Labs done day of D/C and in media Failed OP treatment for diverticulitis with Cefdinir, Flagyl, and Cipro. Assessment and Support of Treatment Regimen Adherence and Medication Management: Patient still having pain in her back. Comes and goes. Patient up and ambulating often and trying to understand a low fiber diet Family support No bleeding noted Education Provided by ACN to Support Self-Management, Independent Living and ADLs: -Reviewed low fiber diet. Eat small frequent snacks. -Patient is going to stop by PCP office today for tip sheets and edu on diet -Discussed pain related to gut health, gas, and irritation to colon. -Ambulate often -Call MD with any new or worsening symptoms. -Patient verbalized understanding -CN contact information, Saloni Pinedo RN, can be reached at [phone] and will follow for a minimum of 30 days following hospitalization. Communication with Home Health Agencies and Other Services Utilized/Needed by the Patient: none documented in this encounter Plan of Treatment Upcoming Encounters Date Type Department Care Team (Late st Contact Info) Description 01/07/2025 3:45 PM EDT Office Visit [facility] [address] [place] [phone] Violeta Bailey APRN-CNP [address] [place] [address] 03/12/2025 8:00 AM EDT Office Visit [facility] [address] [facility] [place] [phone] Violeta Bailey APRN-CNP [address] [place] [address] documented as of this encounter Visit Diagnoses Not on filedocumented in this encounter Additional Health Concerns Assessment Noted Time PHQ-9 Depression Total Score: 0 11/18/19 24 7:00 AM EDT documented as of this encounter Care Teams Performance Makeup Artist Relationship Specialty Start Date End Date Violeta Bailey APRN-CNP [address] [place] [address] PCP - General Family Medicine 07/25/24 documented as of this encounter
--- OUTSIDE RECORDS SUMMARY | 2025-01-01 16:50 | XMS_ITS | Encounter Summary ---
Author Organization [facility] Address [id number] [address] [place] [address] Care Team Providers Care Advertising Teacher Name Role Phone Violeta Bailey PILOT PLANT SUPERVISOR-TECHNOLOGY INSTRUCTOR Primary Care Provide r Encounter Details Date Type Department Care Team (Late Contact Info) Description 10/20/2022 Telephone [facility] - Family Medicine [address] [place] [address] Erin Koenig CMA Social History Tobacco Use Types Packs/Day Years [...] 06/21/2022 How often do you attend chur ch or sikh services? More than 4 times per year 06/21/2022 Do you belong to any clubs o r organizations such as yazidism groups, unions, fraternal or athletic groups, or [...] care, and heating? Not hard at all 06/21/2022 PHQ-2 Answer Date Recorded Total Score 0 10/12/2022 [facility] - Occupational Stress Questionnaire Answer Date Recorded [...] medical appointments or from getting medications? No 05/26 In the past 12 months, has l ack of transportation kept you from meetings, work, or from getting things needed for daily living? No 06/21/2022 Childcare Answer Date Recorded Do problems getting child ca re make it difficult for you to work or study? No 06/21/2022 Employment Answer Date Recorded Do you need help finding a [facility] career [facility] and/or a training program? No 06/21/2022 Purpose - Life Answer Date Recorded I have a purpose and direction in my life. Stron gly Agree 06/21/2022 Comments No Sex and Gender Information Value Date Recorded Sex Assigned at Not on file Legal Sex Female 11:32 AM EDT Gender Identity Not on file Sexual Orientation Not on file COVID-19 Exposure Response Date Recorded In the last month, have you been in contact with someone who was confirmed or suspected to have Coronavirus / COVID-19? No / Unsure 10/15/2022 7:30 AM EDT documented as of this encounter Miscellaneous Notes * Telephone Encounter - Erin Koenig CMA - 10/20/2022 11:13 AM EDT Pt called about billing of her visit in May and I was helping her as much as possible and she then went on after I told her she might have to call billing and she quoted That she was going to Rip my head off and I said exuse me and she then stated she was sorry that she was going rounds with this and I ended the conversation. * Telephone Encounter - Sonia Dent - 10/20/2022 11:13 AM EDT I spoke with this patient and she was getting the run around from everyone she talked to today and apologized for speaking to Erin the way she did earlier. I have emailed Kristina about her visit in May and discussed with her that the lab she had done at [facility] was coded correctly and [facility] is not a screening lab that is covered by her ins. Pt understood and will wait for a return call when Kristina reviews her Wellness coding. documented in this encounter Plan of Treatment Upcoming Encounters Date Type Department Care Team (Late st Contact Info) Description 01/07/2025 3:45 PM EDT Office Visit [facility] [address] [place] [address] Violeta Bailey APRN-TECHNOLOGY INSTRUCTOR [address] [place], [place] [phone] 03/12/2025 8:00 AM EDT Office Visit [facility] [address] [place] [address] Violeta Bailey APRN-CNP [address] [place] [address] documented as of this encounter Visit Diagnoses Not on filedocumented in this encounter Additional Health Concerns Assessment Noted Time PHQ-9 Depression Total Score: 0 10/13/19 23 7:00 AM EDT documented as of this encounter Care Teams Advertising Teacher Relationship Specialty Start Date End Date Violeta Bailey APRN-CNP [address] [place] [address] PCP - General Family Medicine 07/25/24 documented as of this encounter
--- OUTSIDE RECORDS SUMMARY | 2025-01-01 16:50 | XMS_ITS | Encounter Summary ---
Author Organization [facility] Sys tem Address [facility]-[id number] [address] [place] [address] Care Team Providers Care Project Asst Name Role Phone MichnidhijosueVioleta magaña GENERAL STORE MANAGER-CENTRAL OFFICE ASSOCIATE Primary Care Provide r Encounter Details Date Type Department Care Team (Late Contact Info) Description 04/17/2024 Documentation [facility] [address] [place] [address] Jennifer Patel CMA Social History Tobacco Use Types Packs/Day Years Used Date Smoking Tobacco: Former Cigarettes 1 - 2012 Smokeless Tobacco: Never Alcohol Use Standard Drinks/Week Comments Yes 0 (1 standard drink = 0.6 oz pur e alcohol) rare-2 drinks/year [facility] Utilities Answer Date Recorded In the past 12 months has [employer], gas, oil, or water [employer] threatened to shut off services in your home? No 01/30/2024 Social Connection and Isolat ion Panel [NHANES] Answer Date Recorded In a typical week, how many times do you talk on the phone with family, friends, or neighbors? More than three times a week 06/21/2022 How often do you get togethe r with friends or relatives? More than three times a week 06/21/2022 How often do you attend chur or mandaeism services? More than 4 times per year 06/21/2022 Do you belong to any clubs o r organizations such as orthodoxy groups, unions, fraternal or athletic groups, or [...] care, and heating? Not hard at all 03/02/2024 PHQ-2 Answer Date Recorded Total Score 0 04/09/2024 [facility] of Occupat ional Health - Occupational [...] medical appointments or from getting medications? No 03/2024 In the past 12 months, has l ack of transportation kept you from meetings, work, or from getting things needed for daily living? No 03/02/2024 Housing Instability Answer Date Recorde d Are you worried or concerned that in the next two months you may not have stable housing that you own, rent or stay in as a part of a household? No 03/02/2024 Childcare Answer Date Recorded Do problems getting child ca re make it difficult for you to work or study? No 06/21/2022 Employment Answer Date Recorded Do you need help finding a l ocal career center and/or a training program? No 06/21/2022 Hunger Screening Answer Date Recorded Within the past 12 months we worried whether our food would run out before we got money to buy more. Never True 04/12/2024 Within the past 12 months th e food we bought just didn't last and we didn't have money to get more. Never True 04/12/2024 Purpose - Life Answer Date Recorded I have a purpose and direction in my life. Stron gly Agree 06/21/2022 Comments No Sex and Gender Information Value Date Recorded Sex Assigned at Not on file Legal Sex Female 11:32 AM EDT Gender Identity Not on file Sexual Orientation Not on file documented as of this encounter Plan of Treatment Upcoming Encounters Date Type Department Care Team (Late st Contact Info) Description 01/07/2025 3:45 PM EDT Office Visit [facility] [address] [place] [phone] Violeta Bailey APRN-CNP [address] [place] [address] 03/12/2025 8:00 AM EDT Office Visit [facility] [address] [place] [address] Violeta Bailey APRN-CNP [address] [place] [address] documented as of this encounter Visit Diagnoses Not on filedocumented in this encounter Additional Health Concerns Assessment Noted Time PHQ-9 Depression Total Score: 0 04/09/20 24 7:00 AM EDT documented as of this encounter Care Teams Project Asst Relationship Specialty Start Date End Date Violeta Bailey APRN-CNP [address] [place] [address] PCP - General Family Medicine 07/25/24 documented as of this encounter
--- OUTSIDE RECORDS SUMMARY | 2025-01-01 16:50 | XMS_ITS | Encounter Summary ---
Author Organization [facility] Sys tem Address [id number] [address] [place] [address] Care Team Providers Care Splitting Machine Tender Name Role Phone MichVioleta hayes HUMAN RESOURCES TEMP-MANAGER ROOM Primary Care Provide r Encounter Details Date Type Department Care Team (Late Contact Info) Description 03/23/2023 Orders Only [facility] [address] [place] [address] Rao Valdez MD [address] [facility]. Provider retired 10/23/24 [place], [place] [id number] Social History Tobacco Use Types Packs/Day Years Used Date Smoking Tobacco: Former Cigarettes 2012 Smokeless Tobacco: Never Alcohol Use Standard [...] often do you attend chur ch or protestant services? More than 4 times per year 06/21/2022 Do you belong to any clubs o r organizations such as restorationism groups, unions, fraternal or athletic groups, or [...] PHQ-2 Answer Date Recorded Total Score 0 03/22/2023 [facility] of Occupat ional Health - Occupational Stress [...] Office Visit [facility] [address] [facility] [place] [place] [address] Violeta Bailey APRN-CNP [address] [facility] [place] [address] 03/12/2025 8:00 AM EDT Office Visit [facility] [address] [place] [address] Violeta Bailey APRN-CNP [address] [facility] [place] [address] documented as of this encounter Visit Diagnoses Not on filedocumented in this encounter Additional Health Concerns Assessment Noted Time PHQ-9 Depression Total Score: 0 03/22/20 23 7:00 AM EDT documented as of this encounter Care Teams Splitting Machine Tender Relationship Specialty Start Date End Date Violeta Bailey APRN-CNP [address] [place] [address] PCP - General Family Medicine 07/25/24 documented as of this encounter
--- OUTSIDE RECORDS SUMMARY | 2025-01-01 16:50 | XMS_ITS | Encounter Summary ---
Author Organization [facility] Sys tem Address [facility]-[id number] [address] [place] [address] Care Team Providers Care Bond Underwriter Name Role Phone MichnidhijosueVioleta magaña COMPUTER FORWARDING SYSTEM MARKUP CLERK-STILL OPERATOR Primary Care Provide r Encounter Details Date Type Department Care Team (Late Contact Info) Description 04/02/2024 Documentation [facility] [address] [place] [address] Jennifer Patel CMA Social History Tobacco Use Types Packs/Day Years Used Date Smoking Tobacco: Former Cigarettes 1 - 2012 Smokeless Tobacco: Never Alcohol Use Standard Drinks/Week Comments Yes 0 (1 standard drink = 0.6 oz pur e alcohol) rare-2 drinks/year [facility] Utilities Answer Date Recorded In the past 12 months has [employer], gas, oil, or water [employer] threatened to shut off services in your [...] How often do you attend chur or oriental orthodox services? More than 4 times per year 06/21/2022 Do you belong to any clubs o r organizations such as holiness groups, unions, fraternal or athletic groups, or [...] PHQ-2 Answer Date Recorded Total Score 0 03/14/2024 [facility] of Occupat ional Health - Occupational [...] got money to buy more. Never True 04/06/2024 Within the past 12 months th e food we bought just didn't last and we didn't have money to get more. Never True 04/06/2024 Purpose - Life Answer Date Recorded I [...] Office Visit [facility] [address] [facility] [place] [phone] Violeta Bailey APRN-CNP [address] [place] [address] 03/12/2025 8:00 AM EDT Office Visit [facility] [address] [place] [address] Violeta Bailey APRN-CNP [address] [place] [address] documented as of this encounter Visit Diagnoses Not on filedocumented in this encounter Additional Health Concerns Assessment Noted Time PHQ-9 Depression Total Score: 0 03/14/20 24 7:00 AM EDT documented as of this encounter Care Teams Bond Underwriter Relationship Specialty Start Date End Date Violeta Bailey APRN-CNP [address] [place] [address] PCP - General Family Medicine 07/25/24 documented as of this encounter
--- OUTSIDE RECORDS SUMMARY | 2025-01-01 16:50 | XMS_ITS | Encounter Summary ---
Author Organization [facility] Sys tem Address [facility][id number] [address] [place] [address] Care Team Providers Care Child Care Group Leader Name Role Phone Lynn Violeta SALVAGE WINDER-BUCK PRESSER Primary Care Provide r Encounter Details Date Type Department Care Team (Late st Contact Info) Description 01/13/2024 Orders Only [facility] [address] [place] [phone] Diana Gillespie LPN Diverticular disease Social History Tobacco Use Types Packs/Day Years [...] often do you attend chur ch or episcopalian services? More than 4 times per year 06/21/2022 Do you belong to any clubs o r organizations such as mormonism groups, unions, fraternal or athletic groups, or [...] Answer Date Recorded Total Score 0 11/24/2023 [facility] of Occupat ional Health - Occupational [...] Recorded Do you need help finding a [facility] career center and/or a training program? No 06/21/2022 Hunger Screening Answer Date Recorded Within the past 12 months we worried whether our food would run out before we got money to buy more. Never True 01/10/2024 Within the past 12 months th e food we bought just didn't last and we didn't have money to get more. Never True 01/10/2024 Purpose - Life Answer Date Recorded I [...] EDT Office Visit [facility] [place] [address] Viloeta Bailey APRN-CNP [address] [place] [address] 03/12/2025 8:00 AM EDT Office Visit [facility] [address] [place] [address] Violeta Bailey APRN-CNP [address] [place] [address] documented as of this encounter Procedures Procedure Name Priority Date/Time Associated Diagnosis Comments AMB REFERRAL TO GASTROENTEROLOGY Routine 01/09/20 24 Diverticular disease documented in this encounter Results * Ambulatory referral to Gastroenterology (01/09/2024) us Rao Valdez MD OUTPATIENT REFERRAL ORDERABL ES Final Result MANUALLY TRANSCRIBED RESULTS documented in this encounter Visit Diagnoses Diagnosis Diverticular disease Diverticulosis of colon (without mention of hemorrhage) documented in this encounter Additional Health Concerns Assessment Noted Time PHQ-9 Depression Total Score: 0 11/24/19 24 7:00 AM EDT documented as of this encounter Care Teams Child Care Group Leader Relationship Specialty Start Date End Date Violeta Bailey APRN-CNP [address] [place] [address] PCP - General Family Medicine 07/25/24 documented as of this encounter
--- OUTSIDE RECORDS SUMMARY | 2025-01-01 16:50 | XMS_ITS | Encounter Summary ---
Author Organization [facility] Address [facility][id number] [address] [place] [address] Care Team Providers Care Bio Medical Technician Name Role Phone PollyVioleta magaña DOUGH MAKER-PHYSICIST ACOUSTICS Primary Care Provide r Reason for Referral * Consultation (Routine) - Closed Specialty Diagnoses / Procedures Referred By Raquel feliciano Referred To Contact Endocrinology, Diabetes & Metabolism Diagnoses Diabetes mellitus without complication ([facility]) Rao Valdez MD [address]. Provider retired 10/23/24 [place] [address] Phone: tel: fax: [facility] - [facility] Nutrition [facility] [address] [place] [address] Phone: tel: fax: Referral ID Status Reason Start Date Expiration Date V isits Requested Visits Authorized [id number] Closed Specialty Services Required 03/23/2023 03/22/2024 1 1 Encounter Details Date Type Department Care Team (Late st Contact Info) Description 03/23/2023 Telephone [facility] [place] [facility] [address] [facility] [address] [place] [phone] Rao Valdez MD [address]. Provider retired 10/23/24 [place] [address] Social History Tobacco Use Types Packs/Day Years [...] How often do you attend chur or jewish services? More than 4 times per year [...] Answer Date Recorded Total Score 0 03/22/2023 [facility] of Occupat ional Health - Occupational Stress [...] Recorded Do you need help finding a [employer] career center and/or a training program? No [...] encounter Miscellaneous Notes * Telephone Encounter - Sonia Cooley - 03/23/2023 7:40 AM EDT We received a referral for education on Callie Granda Marina 1965. However per CMS Guidelines we need to have the services requested marked as such on referral. Please see pended order and sign if you are agreeable. Thank you [facility] * Telephone Encounter - Rao Valdez MD - 03/23/2023 7:40 AM EDT Order signed documented in this encounter Plan of Treatment Upcoming Encounters Date Type Department Care Team (Late st Contact Info) Description 01/07/2025 3:45 PM EDT Office Visit [facility] [place] [address] Violeta Bailey APRN-PHYSICIST ACOUSTICS [address] [place] [address] 03/12/2025 8:00 AM EDT Office Visit [facility] [address] [place] [phone] Violeta Bailey APRN-PHYSICIST ACOUSTICS [address] [facility] [place] [address] Scheduled Referrals Name Type Priority Associated Diagnoses Orde r Schedule Ambulatory referral to Diabetic Education Outpatient Referral Routine Diabetes mellitus without complication ([facility]) 1 Occurrences starting 03/23/2023 until 03/23/2024 documented as of this encounter Visit Diagnoses Diagnosis Diabetes mellitus without complication ([facility])- Primary Type II or unspecified type diabetes mellitus without mention of complication, not stated as uncontrolled documented in this encounter Additional Health Concerns Assessment Noted Time PHQ-9 Depression Total Score: 0 03/22/20 23 7:00 AM EDT documented as of this encounter Care Teams Bio Medical Technician Relationship Specialty Start Date End Date Violeta Bailey APRN-CNP [address] [place] [address] PCP - General Family Medicine 07/25/24 documented as of this encounter
--- OUTSIDE RECORDS SUMMARY | 2025-01-01 16:50 | XMS_ITS | Encounter Summary ---
Author Organization [facility] tem Address [facility]-[id number] [address] [place] [address] Care Team Providers Care Reel Repairer Name Role Phone Violeta Bailey SANITARY LANDFILL OPERATOR-LUGGAGE MAKER Primary Care Provide r Encounter Details Date Type Department Care Team (Late st Contact Info) Description 03/04/2020 Telephone [facility] [address] [place] [address] [place] [address] Kalyn Abdul Social History Tobacco Use Types Packs/Day Years Used Date Smoking Tobacco: Never Assessed Childcare Answer Date Recorded Childcare Unknown 01/03/2019 Employment Answer Date Recorded Employment Unknown 01/03/2019 Comments Unknown Sex and Gender Information Value Date Recorded Sex Assigned at Not on file Legal Sex Female 11:32 AM EDT Gender Identity Not on file Sexual Orientation Not on file documented as of this encounter Miscellaneous Notes * Telephone Encounter - Kalyn Abdul - 03/04/2020 9:50 AM EDT LMOM FOR REFERRAL 03/04/2020 documented in this encounter Plan of Treatment Upcoming Encounters Date Type Department Care Team (Late st Contact Info) Description 01/07/2025 3:45 PM EDT Office Visit [facility] [address] [place] [address] Violeta Bailey APRN-CNP [address] [facility] [place] [address] 03/12/2025 8:00 AM EDT Office Visit [facility] [address] [facility] [place] [address] Violeta Bailey APRN-CNP [address] [place] [address] documented as of this encounter Visit Diagnoses Not on filedocumented in this encounter Care Teams Reel Repairer Relationship Specialty Start Date End Date Violeta Bailey APRN-CNP [address] [facility] [place] [address] PCP - General Family Medicine 07/25/24 documented as of this encounter
--- OUTSIDE RECORDS SUMMARY | 2025-01-01 16:50 | XMS_ITS | Encounter Summary ---
Author Organization [facility] Sys tem Address [facility]-[id number] [address] [place] [address] Care Team Providers Care Senior Director Name Role Phone MichnidhijosueVioleta magaña SUPERVISOR PAINT ROLLER COVERS-NON EMERGENCY SERVICES AMBULANCE DRIVER Primary Care Provide r Encounter Details Date Type Department Care Team (Late Contact Info) Description 10/03/2023 Telephone [facility] [address] [place] [address] Rao Valdez MD [address]. Provider retired 10/23/24 [place], [place] [phone] Social History Tobacco Use Types Packs/Day Years [...] often do you attend chur ch or mandaen services? More than 4 times per year 06/21/2022 Do you belong to any clubs o r organizations such as christian groups, unions, fraternal or athletic groups, or [...] PHQ-2 Answer Date Recorded Total Score 0 09/29/2023 [facility] of Occupat ional Health - Occupational [...] got money to buy more. Never True 09/29/2023 Within the past 12 months th e food we bought just didn't last and we didn't have money to get more. Never True 09/29/2023 Purpose - Life Answer Date Recorded I have a purpose and direction in my life. Stron gly Agree 06/21/2022 Comments No Sex and Gender Information Value Date Recorded Sex Assigned at Not on file Legal Sex Female 11:32 AM EDT Gender Identity Not on file Sexual Orientation Not on file documented as of this encounter Miscellaneous Notes * Telephone Encounter - Nataly Verduzco - 10/03/2023 3:01 PM EDT Patient is due for her yearly screening mammogram. Can you please put an order in for this * Telephone Encounter - Rao Valdez MD - 10/03/2023 3:01 PM EDT Order in place please arrange documented in this encounter Plan of Treatment Upcoming Encounters Date Type Department Care Team (Late st Contact Info) Description 01/07/2025 3:45 PM EDT Office Visit [facility] [address] [place] [address] Violeta Bailey, SUPERVISOR [employer]-NON EMERGENCY SERVICES AMBULANCE DRIVER [address] [place] [address] 03/12/2025 8:00 AM EDT Office Visit [facility] [address] [place] [address] Violeta Bailey, SUPERVISOR [employer]-NON EMERGENCY SERVICES AMBULANCE DRIVER [address] [place] [address] documented as of this encounter Results * Mammography screening bilateral with CAD (10/19/2023 8:16 AM EDT) Anatomical Region Laterality Modality Breast Bilateral Mammography 10/19/2023 8:38 AM EDT Narrative 10/19/2023 8:41 AM EDT EXAM: MAMM SCREENING BILATERAL W CAD, 10/19/2023 [...] 8:41 AM 1 b MAMM 1 YR Procedure Note Manjeet Johnston MD - 10/19/2023 EXAM: MAMM SCREENING BILATERAL W CAD, 10/19/2023 7:47 AM CLINICAL INDICATIONS: Screening, Encounter for screening mammogram formalignant neoplasm of breast COMPARISON: 10/01/2022 TECHNIQUE: Bilateral digital tomosynthesis MLO and CC views of the breasts wereobtained, with creation of synthetic 2D views. Computer aided detectionwas utilized. FINDINGS: There are scattered areas of fibroglandular density. There are no suspicious masses, calcifications, or areas of architecturaldistortions. IMPRESSION: No mammographic evidence of malignancy. BI-RADS: BI-RADS 1 - Negative Recommendation: Routine screening mammogram in 1 year. Finalized by Manjeet Johsnton MD on 10/19/2023 8:41 AM 1 b MAMM 1 YR Rao Valdez MD IMG MAMMOGRAPHY ORDERABLES F inal Result documented in this encounter Visit Diagnoses Diagnosis Encounter for screening mammogram for malignant neoplasm of breast- Primary Encounter for screening mammogram for malignant neoplasm of breast documented in this encounter Additional Health Concerns Assessment Noted Time PHQ-9 Depression Total Score: 0 09/29/19 24 7:00 AM EST documented as of this encounter Care Teams Senior Director Relationship Specialty Start Date End Date Violeta Bailey APRN-NON EMERGENCY SERVICES AMBULANCE DRIVER [address] [place] [address] PCP - General Family Medicine 07/25/24 documented as of this encounter
--- OUTSIDE RECORDS SUMMARY | 2025-01-01 16:50 | XMS_ITS | Clinical Summary ---
Author Organization [facility] Address [address] [place] [address] Care Team Providers Care Quality Control Director Name Role Phone Unavailable Primary Care Provider Unavailabl e Social History Tobacco Use Types Packs/Day Years Used Date Smoking Tobacco: Never Assessed Comments Unknown Sex and Gender Information Value Date Recorded Sex Assigned at Not on file Legal Sex Female 8:23 PM EDT Gender Identity Not on file Sexual Orientation Not on file Plan of Treatment Not on file Insurance [employer]
--- OUTSIDE RECORDS SUMMARY | 2025-01-01 16:50 | XMS_ITS | Encounter Summary ---
Author Organization [facility] Sys tem Address [id number] [address] [place] [address] Care Team Providers Care Digital Developer Name Role Phone PollyVioleta magaña UNDERCAR SPECIALIST-NAIL TECH Primary Care Provide r Encounter Details Date Type Department Care Team (Late Contact Info) Description 11/18/2023 Orders Only [facility] [address] [place] [phone] External, Scanning Provider Social History Tobacco Use Types Packs/Day Years [...] often do you attend chur ch or voodoo services? More than 4 times per year 06/21/2022 Do you belong to any clubs o r organizations such as buddhist groups, unions, fraternal or athletic groups, or [...] PHQ-2 Answer Date Recorded Total Score 0 11/18/2023 [facility] of Occupat ional Health - Occupational Stress [...] Recorded Do you need help finding a [facility] career center and/or a training program? No 06/21/2022 Hunger Screening Answer Date Recorded Within the past 12 months we worried whether our food would run out before we got money to buy more. Never True 11/18/2023 Within the past 12 months th e food we bought just didn't last and we didn't have money to get more. Never True 11/18/2023 Purpose - Life Answer Date Recorded I [...] EDT Office Visit [facility] [address] [place], [place] [address] [place] [address] Violeta Bailey APRN-CNP [address] [facility] [place] [address] 03/12/2025 8:00 AM EDT Office Visit [facility] [address] [place], [place] [address] [place] [address] Violeta Bailey APRN-CNP [address] [place] [address] documented as of this encounter Procedures Procedure Name Priority Date/Time Associated Diagnosis Comments CT ABDOMEN AND PELVIS W CONT Routine 11/18/2023 documented in this encounter Results * CT abdomen and pelvis with contrast (11/18/2023) Anatomical Region Laterality Modality Body, Abdomen, Body Covera N/A Compu july Tomography 11/18/2023 us Scanning Provider External IMG CT ORDERABLES Fin al Result documented in this encounter Visit Diagnoses Not on filedocumented in this encounter Additional Health Concerns Assessment Noted Time PHQ-9 Depression Total Score: 0 11/18/19 24 7:00 AM EDT documented as of this encounter Care Teams Digital Developer Relationship Specialty Start Date End Date Violeta Bailey APRN-CNP [address] [place] [address] PCP - General Family Medicine 07/25/24 documented as of this encounter
--- OUTSIDE RECORDS SUMMARY | 2025-01-01 16:50 | XMS_ITS | Encounter Summary ---
Author Organization [facility] tem Address [facility] [place]-[id number] [address] [place] [address] Care Team Providers Care Computer Specialist Name Role Phone Pollyarchana Violeta HEAD OF ACADEMIC TECHNOLOGY-MULTICULTURAL INTERNSHIP Primary Care Provide r Encounter Details Date Type Department Care Team (Late Contact Info) Description 03/18/2023 Orders Only [facility] [address] [place] [phone] External, Scanning Provider Social History Tobacco Use [...] any clubs o r organizations such as baptist groups, unions, fraternal or athletic groups, or [...] Answer Date Recorded Total Score 0 03/22/2023 [facility] Occupat ional Health - Occupational [...] Recorded Do you need help finding a [facility] and/or a training program? [...] Office Visit [facility] [address] [facility] [place] [place] [phone] Violeta Bailey APRN-CNP [address] [facility] [place] [address] 03/12/2025 8:00 AM EDT Office Visit [facility] [address] [place] [phone] Violeta Bailey APRN-CNP [address] [place] [address] documented as of this encounter Visit Diagnoses Not on filedocumented in this encounter Additional Health Concerns Assessment Noted Time PHQ-9 Depression Total Score: 0 10/13/19 23 7:00 AM EDT documented as of this encounter Care Teams Computer Specialist Relationship Specialty Start Date End Date Violeta Bailey APRN-CNP [address] [place] [address] PCP - General Family Medicine 07/25/24 documented as of this encounter
--- OUTSIDE RECORDS SUMMARY | 2025-01-01 16:50 | XMS_ITS | Encounter Summary ---
Author Organization [facility] Sys tem Address [id number] [address] [place] [address] Care Team Providers Care Wind Field Service Manager Name Role Phone PollyVioleta magaña LADIES' HAT TRIMMER-DENTAL PROSTHETIST Primary Care Provide r Reason for Visit * Reason Onset Date Comments Transition Of Care 02/02/2024 Encounter Details Date Type Department Care Team (Late st Contact Info) Description 02/02/2024 [facility] [place] [address] Lesly Herrera RN Transition Of Care Social History Tobacco Use Types Packs/Day Years Used Date Smoking Tobacco: Former Cigarettes 1 - 2012 Smokeless Tobacco: Never Alcohol Use Standard Drinks/Week Comments Yes 0 (1 standard drink = 0.6 oz pur e alcohol) rare-2 drinks/year [facility] Utilities Answer Date Recorded In the past 12 months has [employer], gas, oil, or water [employer] threatened to shut off services in your [...] week 06/21/2022 How often do you attend [facility] or orthodoxy services? More than 4 times per year 06/21/2022 Do you belong to any clubs o r organizations such as zoroastrianism groups, unions, fraternal or athletic groups, or [...] Answer Date Recorded Total Score 0 11/24/2023 [facility] of Occupat ional Health - Occupational [...] medical appointments or from getting medications? No 02/2024 In the past 12 months, has l ack of transportation kept you from meetings, work, or from getting things needed for daily living? No 01/30/2024 Housing Instability Answer Date Recorde d Are you worried or concerned that in the next two months you may not have stable housing that you own, rent or stay in as a part of a household? No 01/30/2024 Childcare Answer Date Recorded Do problems getting child ca re make it difficult for you to work or study? No 06/21/2022 Employment Answer Date Recorded Do you need help finding a [facility] career center and/or a training program? No 06/21/2022 Hunger Screening Answer Date Recorded Within the past 12 months we worried whether our food would run out before we got money to buy more. Never True 01/30/2024 Within the past 12 months th e food we bought just didn't last and we didn't have money to get more. Never True 01/30/2024 Purpose - Life Answer Date Recorded I have a purpose and direction in my life. Stron gly Agree 06/21/2022 Comments No Sex and Gender Information Value Date Recorded Sex Assigned at Not on file Legal Sex Female 11:32 AM EDT Gender Identity Not on file Sexual Orientation Not on file documented as of this encounter Miscellaneous Notes * Telephone Encounter - Lesly Herrera RN - 02/02/2024 9:28 AM EDT Images from the original note were not included. Transition of Care Additional Questions/Concerns Requiring PCP Follow-Up: -Digital Project Coordinator was unable to contact the patient. -Patient does not have a hospital follow up appointment scheduled with her PCP at this time. This documentation is being used for Transition of Care purposes: Yes Goal: Patient will demonstrate a safe transition from hospital to home. Diagnosis on Discharge: Recurrent sigmoid diverticulosis Discharge Specialty: Gastroenterology Name of Discharging Facility: [facility] Date of Facility Discharge: 01.30.24-02.01.24 Date of Interactive Contact and Name of Engineering Production Liaison: 02.02.24 0929 Left a message. 02.02.24 0817 No answer. Medication Review Completed: No Follow Up Appointments with Providers: Primary: Rao Butt MD 03.06.24 415 pm Specialty: General Surgery TBD Review of Pending Lab/Diagnostic Tests and Plan for Completion: -None Assessment and Support of Treatment Regimen Adherence and Medication Management: Education Provided by ACN to Support Self-Management, Independent Living and ADLs: Communication with Home Health Agencies and Other Services Utilized/Needed by the Patient: -None documented in this encounter Plan of Treatment Upcoming Encounters Date Type Department Care Team (Late st Contact Info) Description 01/07/2025 3:45 PM EDT Office Visit [facility] [address] [phone] Violeta Bailey APRN-CNP [address] [place] [address] 03/12/2025 8:00 AM EDT Office Visit [facility] [address] [place] [place] [phone] Violeta Bailey APRN-CNP [address] [place] [address] documented as of this encounter Visit Diagnoses Not on filedocumented in this encounter Additional Health Concerns Assessment Noted Time PHQ-9 Depression Total Score: 0 11/24/19 24 7:00 AM EDT documented as of this encounter Care Teams Wind Field Service Manager Relationship Specialty Start Date End Date Violeta Bailey APRN-CNP [address] [place] [address] PCP - General Family Medicine 07/25/24 documented as of this encounter
--- OUTSIDE RECORDS SUMMARY | 2025-01-01 16:50 | XMS_ITS | Encounter Summary ---
Author Organization [facility] tem Address [id number] [address] [place] [address] Care Team Providers Care Marine Superintendent Name Role Phone Lynn Violeta CALENDERER-NEUROSURGICAL NURSE PRACTITIONER Primary Care Provide r Encounter Details Date Type Department Care Team (Late Contact Info) Description 04/17/2024 Telephone [facility] [address] [place] [phone] Mohini Hinson MA Social History Tobacco Use Types Packs/Day Years Used Date Smoking Tobacco: Former Cigarettes 1 2012 Smokeless Tobacco: Never Alcohol Use Standard Drinks/Week Comments Yes 0 (1 standard drink = 0.6 oz pur e alcohol) rare-2 drinks/year [facility] Utilities Answer Date Recorded In the past 12 months has [email or web address], gas, oil, or water [employer] threatened to shut off services in your [...] How often do you attend chur or jehovah's witness services? More than 4 times per year 06/21/2022 Do you belong to any clubs o r organizations such as yarsani groups, unions, fraternal or athletic groups, or [...] Answer Date Recorded Total Score 0 04/09/2024 [facility] of Occupat ional Health - Occupational [...] Recorded Do you need help finding a [facility] career center and/or a training program? No [...] Visit [facility] [address] [place] [phone] Violeta Bailey APRN-CNP [address] [facility] [place] [address] 03/12/2025 8:00 AM EDT Office Visit [facility] [address] [place] [phone] Violeta Bailey APRN-CNP [address] [place] [address] documented as of this encounter Visit Diagnoses Not on filedocumented in this encounter Additional Health Concerns Assessment Noted Time PHQ-9 Depression Total Score: 0 04/09/20 24 7:00 AM EDT documented as of this encounter Care Teams Marine Superintendent Relationship Specialty Start Date End Date Violeta Bailey APRN-CNP [address] [place] [address] PCP - General Family Medicine 07/25/24 documented as of this encounter
--- OUTSIDE RECORDS SUMMARY | 2025-01-01 16:51 | XMS_ITS | Encounter Summary ---
Author Organization [facility] [employer] [facility] tem Address [facility] [id number] [address] [place] [address] Care Team Providers Care Non Profit Financial Controller Name Role Phone Violeta Bailey DATA SECURITY ADMINISTRATOR-SOFTWARE TEST AUTOMATION ENGINEER Primary Care Provide r Encounter Details Date Type Department Care Team (Late Contact Info) Description 05/08/2024 Telephone [facility] [address] [place] [address] Staci Young CNA Social History Tobacco Use Types Packs/Day Years Used Date Smoking Tobacco: Former Cigarettes 1 - 2012 Smokeless Tobacco: Never Comments:1 pk a day in past Alcohol Use Standard Drinks/Week Comments Yes 0 (1 standard drink = 0.6 oz pur e alcohol) rare-2 drinks/year [facility] Utilities Answer Date Recorded In the past 12 months has [employer], gas, oil, or water [employer] threatened to shut off services in your [...] week 06/21/2022 How often do you attend [facility] or oriental orthodox services? More than 4 [...] PHQ-2 Answer Date Recorded Total Score 0 05/08/2024 [facility] of Occupat ional Health - Occupational [...] Recorded Do you need help finding a [facility] career center and/or a training program? No 06/21/2022 Hunger Screening Answer Date Recorded Within the past 12 months we worried whether our food would run out before we got money to buy more. Never True 05/08/2024 Within the past 12 months th e food we bought just didn't last and we didn't have money to get more. Never True 05/08/2024 Purpose - Life Answer Date Recorded I [...] Office Visit [facility] [address] [place] [phone] Violeta Bailey APRN-CNP [address] [place] [address] 03/12/2025 8:00 AM EDT Office Visit [facility] [address] [place] [address] Violeta Bailey APRN-CNP [address] [facility] [place] [address] documented as of this encounter Visit Diagnoses Not on filedocumented in this encounter Additional Health Concerns Assessment Noted Time PHQ-9 Depression Total Score: 0 05/08/20 24 7:00 AM EDT documented as of this encounter Care Teams Non Profit Financial Controller Relationship Specialty Start Date End Date Violeta Bailey APRN-CNP [address] [place] [address] PCP - General Family Medicine 07/25/24 documented as of this encounter
--- OUTSIDE RECORDS SUMMARY | 2025-01-01 16:51 | XMS_ITS | Clinical Summary ---
Author Organization [employer] tem Address [id number] [address] [place] [address] Care Team Providers Care Surgical Consultant Name Role Phone MichVioleta hayes HVAC TECHNICIAN-BUILD AUTOMATION ENGINEER Primary Care Provide r Allergies Active Allergy Reactions Criticality Noted Date Comments Amoxicillin Rash Low 01/09/2024 Iodinated Contrast Media Hives,Other (See Comments) Medium 09/04/2019 Penicillins Rash Low 09/03/2019 Medications codeine-guaiFEN esin (guaiFENesin AC) 10-100 mg/5 mL liquidIndicatio ns:Bronchitis Take 10 mL by mouth 3 (three) times a day as needed for cough. 473 mL 10/22/2024 Active methylPREDNISol one (MEDROL, RADHA,) 4 mg tablet Take 1 tablet (4 mg total) by mouth in the morning. follow package directions. 21 tablet 10/22/2024 Active Active Problems Problem Noted Date Diagnosed Date Lumbar spinal stenosis 05/15/2024 Lumbar radiculopathy 04/18/2024 Lumbar herniated disc 04/18/2024 Preop examination 01/30/2024 Disorder of sacrum 01/05/2024 History of colon polyps 11/15/2022 Dermatographia 06/21/2022 Morbid obesity 06/21/2022 Eczema 06/21/2022 Rosacea 05/18/2022 Primary hydronephrosis 07/07/2020 Overview (07/07/2020): ==== 07/07/2020 ==== has had for few years some urgency frequency. Had a CT scan done within the year that demonstrated some mild dilation right side some mild caliectasis. No evidence of any stone. No prior history stone. Substantial smoking history in the past. No gross hematuria. Plan: Evaluate urinary tract cystoscopy right retrograde pyelogram. Urine for cytology. Potential urethral dilation. We do plan to place [facility] bladder solution. Vitamin D deficiency 10/25/2018 Acne 05/25/2016 Allergic rhinitis 05/25/2016 Depressive disorder 05/25/2016 Diverticular disease 05/25/2016 Lumbar spondylosis 05/25/2016 Tarsal tunnel syndrome 05/25/2016 Seasonal allergies Encounters Date Type Department Care Team Description 10/29/2024 11:15 AM EDT Office Visit [facility] [address] [place] [address] Violeta Bailey APRN-CNP Bronchitis (Primary Dx) 10/29/2024 Travel 10/22/2024 11:34 AM EDT - 10/22/2024 11:59 PM EDT Hospital [facility] [address] [place] [address] Bronchitis Discharge Disposition: Home 10/22/2024 11:15 AM EDT [facility] [address] [place] [address] Violeta Bailey APRN-CNP Bronchitis 10/22/2024 Travel 10/08/2024 1:00 PM EDT Office Visit [facility] [address] [facility] [place] [address] Violeta Bailey APRN-CNP Bronchitis (Primary Dx) 10/08/2024 Travel from Last 3 Months Immunizations Immunization Administration Dates Next Due Tdap 03/29/2017 Family History Medical History Relation Name Comments Back Problems Brother 1 Pectus excavatum Brother 1 Brain Tumor Father Shahid Coronary artery disease Father Shahid Dementia Father Shahid Lung cancer Father Shahid small cell- at age 81 Heart disease Maternal Grandfather Josue Horvath Arthritis Mother Leonora Back Problems Mother Leonora Autoimmune disease Sister Fibromyalgia Sister Breast cancer Neg Hx Relation Name Status Comments Brother 1 Alive Brother 2 Alive Father Shahid Maternal Grandfather Josue Horvath Mother Leonora Alive Sister Alive Social History Tobacco Use Types Packs/Day Years Used Date Smoking Tobacco: Former Cigarettes 1 7 2 006 - 2012 Smokeless Tobacco: Never Tobacco Cessation:Counseling Given: Not Answered Comments:1 pk a day in past Alcohol Use Standard Drinks/Week Comments Yes 0 (1 standard drink = 0.6 oz pur e alcohol) rare-2 drinks/year [facility] Utilities Answer Date Recorded In the past 12 months has [employer] electric, gas, oil, or water company threatened to shut off services in your home? No 05/15/2024 Social Connection and Isolat ion Panel [NHANES] Answer Date Recorded In a typical week, how many times do you talk on the phone with family, friends, or neighbors? More than three times a week 06/21/2022 How often do you get togethe r with friends or relatives? More than three times a week 06/21/2022 How often do you attend chur ch or caodaism services? More than 4 times per year 06/21/2022 Do you belong to any clubs o r organizations such as gnosticist groups, unions, fraternal or athletic groups, or [...] drink containing alc ohol? Monthly or less 05/15/2024 Q2: How many drinks containi ng alcohol do you have on a typical day when you are drinking? 1 or 2 05/15/2024 Q3: How often do you have si x or more drinks on one occasion? Never 05/15/2024 Overall Financial Resource Strain (CARDIA) Answe r Date Recorded How hard is it for you to pa y for the very basics like food, housing, medical care, and heating? Not hard at all 03/02/2024 PHQ-2 Answer Date Recorded Total Score 0 05/15/2024 [facility] of Occupat ional Health - Occupational Stress [...] medical appointments or from getting medications? No 04/25 In the past 12 months, has l ack of transportation kept you from meetings, work, or from getting things needed for daily living? No 05/15/2024 Housing Instability Answer Date Recorde d Are you worried or concerned that in the next two months you may not have stable housing that you own, rent or stay in as a part of a household? No 05/15/2024 Childcare Answer Date Recorded Do problems getting child ca re make it difficult for you to work or study? No 06/21/2022 Employment Answer Date Recorded Do you need help finding a [facility] career center and/or a training program? No 06/21/2022 Hunger Screening Answer Date Recorded Within the past 12 months we worried whether our food would run out before we got money to buy more. Never True 05/15/2024 Within the past 12 months th e food we bought just didn't last and we didn't have money to get more. Never True 05/15/2024 Purpose - Life Answer Date Recorded I have a purpose and direction in my life. Stron gly Agree 06/21/2022 Comments No Sex and Gender Information Value Date Recorded Sex Assigned at Not on file Legal Sex Female 11:32 AM EDT Gender Identity Not on file Sexual Orientation Not on file Last Filed Vital Signs Vital Sign Reading Time Taken Comments Blood Pressure 140/80 10/29/2024 11:12 AM EDT Pulse 77 10/29/2024 11:12 AM EDT Temperature 37 C (98.6 F) 10/08/2024 1:10 PM EDT Respiratory Rate 18 10/29/2024 11:12 AM EDT Oxygen Saturation 93% 10/29/2024 11:12 AM EDT Inhaled Oxygen Concentration - - Weight 111.6 kg (246 lb) 10/29/2024 11:12 AM EDT Height 162.6 cm (5' 4.02 ) 06/25/2024 1:14 PM ES T Body Mass Index 42.2 06/25/2024 1:14 PM EST Plan of Treatment Upcoming Encounters Date Type Department Care Team (Late st Contact Info) Description 01/07/2025 3:45 PM EDT Office Visit [facility] [address] [place] [phone] Violeta Bailey, HVAC TECHNICIAN-BUILD AUTOMATION ENGINEER [address] [place] [address] 03/12/2025 8:00 AM EDT Office Visit [facility] [address] [place] [address] Violeta Bailey, HVAC TECHNICIAN-BUILD AUTOMATION ENGINEER [address] [place] [address] Health Maintenance Due Date Last Done Comments Pap Smear 1986 Zoster (Shingles) Vaccine (1 of 2) 2015 Mammogram 10/18/2024 10/19/2023, 09/22, 12/15/2021 Influenza Vaccine 03/25/2025 Depression Screening 05/15/2025 05/15/2024 Adult BMI Follow Up Plan 10/29/2025 10/29/2024 Adult BMI Screening 10/29/2025 10/29/2024 Tobacco Screening 10/29/2025 10/29/2024 DTaP,Tdap and Td Vaccines (2 - Td or Tdap) 03/29/2027 03/29/2017 Colonoscopy 01/03/2034 01/04/2024, 12/23, 12/17/2022, Additional history exists Medical Devices Not on file Procedures Procedure Name Priority Date/Time Associated Diagnosis Comments XR CHEST 2 VWS Routine 10/22/2024 11:40 AM EDT Bronchitis PROVATION COLONOSCOPY Routine 01/04/2024 7:56 AM EDT MAMM SCREENING BILATERAL W CAD Routine 10/19/2023 8:16 AM EDT Encounter for screening mammogram for malignant neoplasm of breast from Last 3 Months or Most Recently Relevant to Health Maintenance Results * X-ray chest 2 views (10/22/2024 11:40 AM EDT) Anatomical Region Laterality Modality Body, Chest N/A Computed Radiogr aphy 10/22/2024 3:42 PM EDT Narrative 10/22/2024 3:43 PM EDT Clinical history: Chest wall pain. Coughing. Comparisons: 04/12/2024. Findings: 2 views of the chest obtained. Heart size and pulmonary vasculature appear within normal limits. Lungs appear clear. No pleural effusion. No pneumothorax identified. IMPRESSION: No evidence for acute cardiopulmonary disease. Finalized by Todd Ingram MD on 10/22/2024 3:43 PM Procedure Note Todd Ingram MD - 10/22/2024 Clinical history: Chest wall pain. Coughing. Comparisons: 04/12/2024. Findings: 2 views of the chest obtained. Heart size and pulmonaryvasculature appear within normal limits. Lungs appear clear. No pleuraleffusion. No pneumothorax identified. IMPRESSION: No evidence for acute cardiopulmonary disease. Finalized by Todd Ingram MD on 10/22/2024 3:43 PM us Violeta Bailey APRN-BUILD AUTOMATION ENGINEER IMG DIAGNOSTIC IMAGIN G ORDERABLES Final Result * Colonoscopy Report (01/04/2024 7:56 AM EDT) Narrative SYSTEMGENERATED, DOCUMENTATION - 01/04/2024 7:56 AM EDT This order has been auto-finalized for image and report archival in PACs. *For full report details, please reach out to your physician. This image is visible to you in MyChart.* Janelle Boone MD IMG OR IMG ORDERABLES Aura goode Result * Mammography screening bilateral with CAD (10/19/2023 [...] 8:41 AM 1 b MAMM 1 YR us Rao Valdez MD IMG MAMMOGRAPHY ORDERABLES F inal Result from Last 3 Months or Most Recently Relevant to Health Maintenance Insurance ANTHEM Advance Directives * Full Code (Latest Code Status on File) Date Activated Date Inactivated Comments 05/15/2024 8:43 PM 05/16/2024 2:02 PM * Full Code Date Activated Date Inactivated Comments 01/30/2024 1:07 PM 02/01/2024 5:40 PM Care Teams Surgical Consultant Relationship Specialty Start Date End Date Violeta Bailey APRN-BUILD AUTOMATION ENGINEER [address] [place] [address] PCP - General Family Medicine 07/25/24
--- OUTSIDE RECORDS SUMMARY | 2025-01-01 16:51 | XMS_ITS | Encounter Summary ---
Author Organization [facility] Address [facility] [id number] [address] [place] [address] Care Team Providers Care Product Tester Fiberglass Name Role Phone PollyVioleta magaña PICKING TECH-DIESEL RETROFIT DESIGNER Primary Care Provide r Encounter Details Date Type Department Care Team (Late Contact Info) Description 11/03/2023 Orders Only [facility] [address] [place] [phone] External, Scanning Provider Social History Tobacco Use [...] often do you attend chur ch or latter-day services? More than 4 times per year 06/21/2022 Do you belong to any clubs o r organizations such as alevism groups, unions, fraternal [...] Answer Date Recorded Total Score 0 09/29/2023 [facility] of Occupat ional Health - Occupational Stress [...] Recorded Do you need help finding a [facility] [employer] career center and/or a training program? No [...] EDT Office Visit [facility] [place] [phone] Violeta Bailey APRN-CNP [address] [facility] [place] [place] [address] 03/12/2025 8:00 AM EDT Office Visit [facility] [address] [place] [phone] Violeta Bailey APRN-CNP [address] [place] [address] documented as of this encounter Procedures Procedure Name Priority Date/Time Associated Diagnosis Comments CT ABDOMEN AND PELVIS WO CONT Routine 11/03/2023 10:13 AM EDT documented in this encounter Results * CT abdomen and pelvis without contrast (11/03/2023 10:13 AM EDT) Anatomical Region Laterality Modality Body, Abdomen, Body Covera N/A Compu july Tomography us Scanning Provider External IMG CT ORDERABLES Fin al Result documented in this encounter Visit Diagnoses Not on filedocumented in this encounter Additional Health Concerns Assessment Noted Time PHQ-9 Depression Total Score: 0 09/29/19 24 7:00 AM EST documented as of this encounter Care Teams Product Tester Fiberglass Relationship Specialty Start Date End Date Violeta Bailey APRN-CNP [address] [place] [address] PCP - General Family Medicine 07/25/24 documented as of this encounter
--- OUTSIDE RECORDS SUMMARY | 2025-01-01 16:51 | XMS_ITS | Encounter Summary ---
Author Organization [facility] Address [facility] [id number] [address] [place] [address] Care Team Providers Care Acute Care Assistant Name Role Phone PollyVioleta magaña CURRICULUM AND INSTRUCTION SPECIALIST-PRINTER SLOTTER HELPER Primary Care Provide r Encounter Details Date Type Department Care Team (Late st Contact Info) Description 11/09/2023 Orders Only [facility] [address] [place] [phone] External, Scanning Provider Social History Tobacco Use [...] often do you attend chur ch or oriental orthodox services? More than 4 [...] PHQ-2 Answer Date Recorded Total Score 0 11/09/2023 [facility] of Occupat ional Health - Occupational [...] Recorded Do you need help finding a [facility] career center and/or a training program? No 06/21/2022 Hunger Screening Answer Date Recorded Within the past 12 months we worried whether our food would run out before we got money to buy more. Never True 11/09/2023 Within the past 12 months th e food we bought just didn't last and we didn't have money to get more. Never True 11/09/2023 Purpose - Life Answer Date Recorded I [...] EDT Office Visit [facility] [place] [phone] Violeta Bailey APRN-CNP [address] [place] [address] 03/12/2025 8:00 AM EDT Office Visit [facility] [address] [place] [phone] Violeta Bailey APRN-CNP [address] [place] [address] documented as of this encounter Procedures Procedure Name Priority Date/Time Associated Diagnosis Comments CT ABDOMEN AND PELVIS WO CONT Routine 11/08/2023 10:10 AM EDT documented in this encounter Results * CT abdomen and pelvis without contrast (11/08/2023 10:10 AM EDT) Anatomical Region Laterality Modality Body, Abdomen, Body Covera N/A Compu july Tomography us Scanning Provider External IMG CT ORDERABLES Fin al Result documented in this encounter Visit Diagnoses Not on filedocumented in this encounter Additional Health Concerns Assessment Noted Time PHQ-9 Depression Total Score: 0 11/09/19 24 7:00 AM EDT documented as of this encounter Care Teams Acute Care Assistant Relationship Specialty Start Date End Date Violeta Bailey APRN-CNP [address] [place] [address] PCP - General Family Medicine 07/25/24 documented as of this encounter
--- OUTSIDE RECORDS SUMMARY | 2025-01-01 16:51 | XMS_ITS | Encounter Summary ---
Author Organization [facility] Address [facility] [id number] [address] [place] [address] Care Team Providers Care Small Engine Trainer Name Role Phone Lynn Violeta ECOLOGICAL ECONOMIST-JAVA SYSTEMS ANALYST Primary Care Provide r Encounter Details Date Type Department Care Team (Late st Contact Info) Description 10/12/2023 Orders Only [facility] [address] [place] [phone] Diana Gillespie LPN TOS (thoracic outlet syndrome) Social History Tobacco Use Types Packs/Day Years [...] often do you attend chur ch or taoist services? More than 4 times per year 06/21/2022 Do you belong to any clubs o r organizations such as yarsanism groups, unions, fraternal or athletic groups, or [...] Answer Date Recorded Total Score 0 09/29/2023 [facility] of Occupat ional Health - Occupational [...] Recorded Do you need help finding a [facility] career center and/or a training program? No [...] Office Visit [facility] [address] [place] [phone] Violeta Bailey APRN-CNP [address] [address] 03/12/2025 8:00 AM EDT Office Visit [facility] [address] [place] [phone] Violeta Bailey APRN-CNP [address] [place] [address] documented as of this encounter Procedures Procedure Name Priority Date/Time Associated Diagnosis Comments AMB REFERRAL TO ORTHOPEDIC SURGERY Routine 10/11/2023 TOS (thoracic outlet syndrome) documented in this encounter Results * Ambulatory referral to Orthopedic Surgery (10/11/2023) us Rao Valdez MD OUTPATIENT REFERRAL ORDERABL ES Final Result MANUALLY TRANSCRIBED RESULTS documented in this encounter Visit Diagnoses Diagnosis TOS (thoracic outlet syndrome) Brachial plexus lesions documented in this encounter Additional Health Concerns Assessment Noted Time PHQ-9 Depression Total Score: 0 09/29/19 24 7:00 AM EST documented as of this encounter Care Teams Small Engine Trainer Relationship Specialty Start Date End Date Violeta Bailey APRN-CNP [address] [place] [address] PCP - General Family Medicine 07/25/24 documented as of this encounter
--- NOTE | 2025-01-01 17:12 | ED_ITS ---
HPI HPI - Back Pain/Injury General Chief Complaint: Back Pain/Injury Stated Complaint: Constipation BACK PAIN Time Seen by Provider: 01/01/25 16:55 Source: patient Mode of arrival: walk-in Limitations: no limitations History of Present Illness HPI Narrative: 59-year-old female with history of diverticulitis s/p colectomy, also the patient have a history of back pain s/p surgery. She is coming to the ER with a lower back pain that got exacerbated over her long trip coming from a vacation after she drove for a long period of time, patient mentioned that over the last few days on Tuesday which is 4 days ago she had some diarrhea about 3 days after that she has not had a good bowel movement, she also have pain in her back whenever she strains to have a bowel movement and that causing her to have more pain Patient does not have Percocet at home but she does not take that much because it caused her to have constipation She denies any abdominal pain nausea or vomiting she also denies any lower extremity numbness tingling or any other concerns The patient have no alarming symptoms or numbness or tingling or any incontinence of urine or stool Related Data Previous Rx's ?Medication ?Instructions ?Recorded orphenadrine citrate 100 mg 100 mg PO ONCE PRN muscle spasm 01/01/25 tablet,extended release #20 tabs Allergies Allergy/AdvReac Type Severity Reaction Status Date / Time Iodinated Contrast Media Allergy Intermediate Unknown Verified 01/01/25 16:54 Penicillins Allergy Intermediate unknown Verified 01/01/25 16:54 Opioid HPI Opioid Management Most Recent Opioid Data: Last Pain Scale 7 Today, 16:58 Last ED Pain Assessment Today, 16:58 Last ORT Total Score 0 11/18/23, 15:11 Last ORT Risk Category Low Risk 11/18/23, 15:11 Review of Systems ROS Status of ROS 10 or more systems reviewed and unremark able except as noted in history and below [facility] Medical History (Updated 01/01/25 @ 17:14 by Vanesa Paris MD) Diverticulitis ?K57.92 - Diverticulitis of intestine, part unspecified, without perforation or abscess without bleeding (ICD-10) Thoracic outlet syndrome of left thoracic outlet ?G54.0 - Brachial plexus disorders (ICD-10) Arm pain, chronic ?M79.603 - Pain in arm, unspecified (ICD-10) ?G89.29 - Other chronic pain (ICD-10) Diverticulitis ?K57.92 - Diverticulitis of intestine, part unspecified, without perforation or abscess without bleeding (ICD-10) Surgical History (Updated 11/18/23 @ 14:59 by Leonora Donis) Hx of cholecystectomy ?Z90.49 - Acquired absence of other specified parts of digestive tract (ICD- 10) H/O: ?Z98.891 - History of uterine scar from previous surgery (ICD-10) Family History (Updated 11/18/23 @ 15:01 by Leonora Donis) Grandfather Family history of CHF (congestive heart failure) Father Family history of cancer Mother Family history of hypertension Social History (Updated 11/18/23 @ 15:03 by Leonora Donis) Within the past year, how often did you have a drink containing alcohol: monthly or less Within the past year, how many standard drinks containing alcohol did you have on a typical day: 1 or 2 Within the past year, how often did you have six or more drinks on one occasion: never Total score: 0 Score interpretation: A score less than 3 is consistent with normal alcohol consumption. Smoking status: Former smoker Non-prescribed substance use: denies use Previous occupational history: [employer] Highest level of school completed/degree received: some college, no degree Are you now , , , , never or living with a partner: In a typical week, how many times do you talk on the telephone with family, friends, or neighbors: 3 or more times per week How often do you get together with friends or relatives: 3 or more times per week How often do you attend hinduism or baptist services: 4 or more times per year Do you belong to any clubs or organizations such as hinduism groups unions, fraternal or athletic groups, or school groups: no Total score: 3 Score interpretation: A score of greater than or equal to 2 indicates the lowest level of social isolation. Little interest or pleasure in doing things: not at all Feeling down, depressed, or hopeless: not at all Feel stressed/tense/nervous/anxious/difficulty sleeping: not at all Gender Identity: female Exam Narrative Exam Narrative: Nurses notes and vital signs reviewed and patient is not hypoxic. General: Well-appearing and in no apparent distress. Skin: Warm, dry, no pallor noted. No rash. Head: Normocephalic, atraumatic. Neck: Supple, non-tender. Eye: Pupils are equal, round and EOMI. No scleral icterus. Ears, Nose, Mouth, and Throat: TM are clear, no nasal mucosal hypertrophy. Oral mucosa is moist, no posterior oropharynx erythema, uvula is mid-line Cardiovascular: Regular Rate and Rhythm without murmur, gallop or rub. Respiratory: No accessory muscle use or respiratory distress. Lungs are clear to auscultation, no wheezing, rales or rhonchi Chest Wall: no tenderness Back: The patient have a paraspinal muscle tenderness at the lower lumbar level with also intervertebral line tenderness, patient also have some tenderness in the sacral area Musculoskeletal: normal ROM, no calf or popliteal tenderness, no lower extremity edema/swelling GI: Abdomen is soft, non-distended. Normal bowel sounds. No masses appreciated. No tenderness to palpation. No rebound, guarding, or rigidity noted. Neurological: A&O x4. No cranial nerve dysfunction observed. No truncal ataxia. Moves all extremities. Sensation intact. Psychiatric: Cooperative and interactive. Normal mood and affect. Constitutional Vital Signs, click to edit/add: Last Vital Signs Temp 98.1 F 01/01/25 16:46 Pulse 75 01/01/25 16:46 Resp 01/01/25 16:46 BP 183/116 H 01/01/25 16:46 Pulse Ox 99 01/01/25 16:46 O2 Del Method Room Air 01/01/25 16:46 Course Vital Signs Vital signs: Vital Signs Temperature 98.1 F 01/01/25 16:46 Pulse Rate 75 01/01/25 16:46 Respiratory Rate 01/01/25 16:46 Blood Pressure 183/116 H 01/01/25 16:46 Pulse Oximetry 99 01/01/25 16:46 Oxygen Delivery Method Room Air 01/01/25 16:46 Temperature 98.1 F 01/01/25 16:46 Pulse Rate 75 01/01/25 16:46 Respiratory Rate 01/01/25 16:46 Blood Pressure 183/116 H 01/01/25 16:46 Pulse Oximetry 99 01/01/25 16:46 Oxygen Delivery Method Room Air 01/01/25 16:46 MDM - Back Pain/Injury MDM Narrative Medical decision making narrative: The patient abdominal examination was completely benign she had no alarming symptoms nausea vomiting or any abdominal pain I did agree that the patient does not have to take her pain medication for her back to cause her to have constipation and that why I added Norflex to help with the muscle spasm in her back The patient has been taking MiraLAX twice a day for the last 2 days and right now I think her medication is adequate regarding the constipation although I did give her magnesium citrate to try tomorrow in case the improvement of her symptoms The patient also was provided with the Norflex to help control the muscle spasm in the back The patient to come back in case of any new symptoms including nausea vomiting any abdominal pain The patient is to follow up with primary care physician in next 2-3 days or to return to the emergency department should any of the signs or symptoms worsen or new symptoms develop. The patient agrees with the following Diagnosis and Treatment plan and the patient will be discharged home. Discharge Plan Discharge Chief Complaint: Back Pain/Injury Clinical Impression: Strain of lumbar region, Constipation Patient Disposition: Home, Self-Care Time of Disposition Decision: 17:14 Condition: Good Prescriptions / Home Meds: New orphenadrine citrate 100 mg tablet extended release 100 mg PO ONCE PRN (Reason: muscle spasm) Qty: 20 0RF Print Language: Bengali Instructions: Constipation (DC), Back Pain (ED) Referrals: JUSTINA KIDD [Primary Care Provider, Family Practice] - 1 week
[2025-01-01] MEDS: ORPHENADRINE 60 MG/2 ML VIAL IM (17:29)
[2025-01-01] MEDS: MAGNESIUM CITRATE 296 ML SOLUTION PO (17:29)
[2025-01-01 17:40] VITALS: BP 182/100; PULSE 88; O2SAT 99
== END 2025-01-01 17:42 | disposition home or self-care (01) ==
PROVIDERS: Emergency Provider Emergency Medicine; PCP Nurse Practitioner Family
DX: S39.012A Strain of muscle, fascia and tendon of lower back, initial encounter (principal); S33.5XXA Sprain of ligaments of lumbar spine, initial encounter; K59.00 Constipation, unspecified; R19.7 Diarrhea, unspecified
CPT/HCPCS: 96372; 99284; J2360

== ENCOUNTER 2025-01-12 05:37 | Emergency (ER) | payer BC, SELFPAY ==
--- OUTSIDE RECORDS SUMMARY | 2025-01-07 15:45 | XMS_ITS | Encounter Summary ---
Author [facility] Address [facility] [id number] [address] [place] [address] Care Team Providers Care Pewter Caster Name Role Phone Violeta Bailey Primary Care Provide r Reason for Referral * Consultation (Routine) - Pending Review Specialty Diagnoses / Procedures Referred By Contac t Referred To Contact Spine Care Diagnoses Lumbar spondylosis Violeta Bailey APRN-CNP [address] [place] [address] Phone: tel: fax: Paulette Goncalves APRN-CNP [address] [address] Phone: tel: fax: Referral ID Status Reason Start Date Expiration Date V isits Requested Visits Authorized [id number] Pending Review 01/08/2025 01/08/2026 1 1 Reason for Visit * Reason Comments Constipation Back Pain Encounter Details Date Type Department Care Team (Late st Contact Info) Description 01/07/2025 3:45 PM EDT Office Visit [facility] [address] [place] [phone] Violeta Bailey APRN-CNP [address] [place] [address] Lumbar spondylosis (Primary Dx) Social History Tobacco Use Types Packs/Day Years Used Date Smoking Tobacco: Former Cigarettes 1 7 2 2012 Smokeless Tobacco: Never Comments:1 pk a day in past Alcohol Use Standard Drinks/Week Comments Yes 0 (1 standard drink = 0.6 oz pur e alcohol) rare-2 drinks/year [facility] Utilities Answer Date Recorded In the past 12 months has [employer] in [place], gas, oil, or water [employer] threatened to shut off services in your [...] week 06/21/2022 How often do you attend [facility] or confucianism services? More than 4 times per year [...] PHQ-2 Answer Date Recorded Total Score 0 01/07/2025 [facility] of Occupat ional Health - Occupational Stress [...] Recorded Do you need help finding a [facility] career center and/or a training program? No 06/21/2022 Hunger Screening Answer Date Recorded Within the past 12 months we worried whether our food would run out before we got money to buy more. Never True 01/07/2025 Within the past 12 months th e food we bought just didn't last and we didn't have money to get more. Never True 01/07/2025 Purpose - Life Answer Date Recorded I have a purpose and direction in my life. Stron gly Agree 06/21/2022 Comments No Sex and Gender Information Value Date Recorded Sex Assigned at Not on file Legal Sex Female 11:32 AM EDT Gender Identity Not on file Sexual Orientation Not on file Travel History Travel Start Travel End [place] 12/22/2024 12/28/2024 documented as of this encounter Last Filed Vital Signs Vital Sign Reading Time Taken Comments Blood Pressure 142/80 01/07/2025 3:56 PM EDT Pulse 97 01/07/2025 3:56 PM EDT Temperature - - Respiratory Rate 18 01/07/2025 3:56 PM EDT Oxygen Saturation 99% 01/07/2025 3:56 PM EDT Inhaled Oxygen Concentration - - Weight 110.7 kg (244 lb) 01/07/2025 3:56 PM EDT Height - - Body Mass Index 41.86 06/25/2024 1:14 PM EST documented in this encounter Patient Instructions * Attachments The following attachments cannot be sent through Care Everywhere. * Spondylolysis (Peruvian) documented in this encounter Progress Notes * SURAJ Hernandez - 01/07/2025 3:45 PM EDT Images from the original note were not included. [id number] [facility] [phone] SUBJECTIVE: Patient ID: Callie Gray is a 59 y.o. female. Patient presents to the office for ER follow up for constipation and back pain. Had back surgery inNovember and did well. She went on vacation and went hiking and the pain started. She went to Er and they gave her something for constipation which has improved some and a muscle relaxer. She took a percocet that she had left from surgery and did help her sleep but did not get rid of the pain. The muscle relaxer did not help. Constipation Associated symptoms include back pain. Pertinent negatives include no abdominal pain, diarrhea, difficulty urinating, fever, nausea or vomiting. Back Pain Pertinent negatives include no abdominal pain, chest pain, fever, numbness or weakness. The following portions of the patient's history were reviewed and updated as appropriate: allergies, current medications, past family history, past medical history, past social history, past surgicalhistory and problem list. REVIEW OF SYSTEMS: Review of Systems Constitutional: Negative for fatigue, fever and unexpected weight change. HENT: Negative for congestion, ear pain, sinus pressure, sinus pain and sore throat. Eyes: Negative for photophobia, pain, discharge and visual disturbance. Respiratory: Negative for cough and shortness of breath. Cardiovascular: Negative for chest pain, palpitations and leg swelling. Gastrointestinal: Positive for constipation. Negative for abdominal pain, diarrhea, nausea and vomiting. Endocrine: Negative for polydipsia, polyphagia and polyuria. Genitourinary: Negative for difficulty urinating, frequency, hematuria and urgency. Musculoskeletal: Positive for back pain. Negative for arthralgias, gait problem, joint swelling andneck pain. Skin: Negative for pallor and rash. Neurological: Negative for dizziness, weakness, light-headedness and numbness. Psychiatric/Behavioral: Negative for sleep disturbance. The patient is not nervous/anxious. PHYSICAL EXAMINATION: Vitals: 01/07/25 1556 BP: 142/80 Pulse: 97 Resp: 18 SpO2: 99% Weight: 110.7 kg (244 lb) Physical Exam Constitutional: Appearance: She is well-developed. HENT: Head: Normocephalic and atraumatic. Right Ear: External ear normal. Left Ear: External ear normal. Eyes: Conjunctiva/sclera: Conjunctivae normal. Pupils: Pupils are equal, round, and reactive to light. Cardiovascular: Rate and Rhythm: Normal rate and regular rhythm. Heart sounds: Normal heart sounds. Pulmonary: Effort: Pulmonary effort is normal. Breath sounds: Normal breath sounds. Musculoskeletal: Cervical back: Normal range of motion. Lumbar back: Tenderness present. Back: Skin: General: Skin is warm and dry. Neurological: Mental Status: She is alert and oriented to person, place, and time. Psychiatric: Mood and Affect: Mood normal. ASSESSMENT/PLAN: Shavonne was seen today for constipation and back pain. Diagnoses and all orders for this visit: Lumbar spondylosis Follow-up: Spoke to neurosurgery Referral placed back to their office And medrol dose gisele ordered Patient noted to have elevated BMI and the following intervention(s) were applied: encouragement toexercise. SURAJ Hernandez 01/08/25 0806 documented in this encounter Plan of Treatment Upcoming Encounters Date Type Department Care Team (Late st Contact Info) Description 02/05/2025 6:45 AM EDT Appointment [facility] [address] [place] [address] 03/12/2025 8:00 AM EDT Office Visit [facility] [address] [place] [phone] Violeta Bailey APRN-CLINICAL RESEARCH ANALYST [address] [place] [address] Scheduled Referrals Name Type Priority Associated Diagnoses Orde r Schedule [facility] Referral Routine Lumbar spondylosis 1 Occurrences starting 01/08/2025 until 01/08/2026 documented as of this encounter Visit Diagnoses Diagnosis Lumbar spondylosis- Primary Lumbosacral spondylosis without myelopathy documented in this encounter Additional Health Concerns Assessment Noted Time PHQ-9 Depression Total Score: 0 01/08/20 3:57 PM EDT A Body Mass Index follow-up plan has been documented for the patient 01/08/2025 8:06 AM EDT documented as of this encounter Care Teams Pewter Caster Relationship Specialty Start Date End Date Violeta Bailey APRN-CLINICAL RESEARCH ANALYST [address] [place] [address] PCP - General Family Medicine 07/25/24 documented as of this encounter
--- OUTSIDE RECORDS SUMMARY | 2025-01-10 14:05 | XMS_ITS | Encounter Summary ---
Author Organization [facility] tem Address [facility] [place]-[id number] [address] [place] [address] Care Team Providers Care Knotter Hand Name Role Phone Pollyarchana Violeta SYSTEM PROGRAMMER-PHYSIOLOGICAL CHEMIST Primary Care Provide r Encounter Details Date Type Department Care Team (Latest Contact Info) Description 01/10/2025 2:05 PM EDT - 01/10/2025 11:59 PM EDT Hospital Encounter [facility] - Radiology Imaging [address] [address] Back pain, unspecified back location, unspecified back pain laterality, unspecified chronicity Discharge Disposition: Home Social History Tobacco Use Types Packs/Day Years Used Date Smoking Tobacco: Former Cigarettes 1 - 2012 Smokeless Tobacco: Never Comments:1 pk a day in past Alcohol Use Standard Drinks/Week Comments Yes 0 (1 standard drink = 0.6 oz pur e alcohol) rare-2 drinks/year [facility] Utilities Answer Date Recorded In the past 12 months has [employer], gas, oil, or water company threatened [...] often do you attend chur ch or gnosticist services? More than 4 times per year 06/21/2022 Do you belong to any clubs o r organizations such as pentecostal groups, unions, fraternal or athletic groups, or [...] Answer Date Recorded Total Score 0 01/07/2025 [facility] [place] of Occupat ional Health - Occupational Stress [...] Do you need help finding a [facility] career center and/or a training program? No 06/21/2022 Hunger Screening Answer Date Recorded Within the past 12 months we worried whether our food would run out before we got money to buy more. Never True 01/10/2025 Within the past 12 months th e food we bought just didn't last and we didn't have money to get more. Never True 01/10/2025 Purpose - Life Answer Date Recorded I have a purpose and direction in my life. Stron gly Agree 06/21/2022 Comments No Sex and Gender Information Value Date Recorded Sex Assigned at Not on file Legal Sex Female 11:32 AM EDT Gender Identity Not on file Sexual Orientation Not on file Travel History Travel Start Travel End [place] 12/22/2024 12/28/2024 documented as of this encounter Medications at Time of Discharge methylPREDNISolon e (MEDROL, RADHA,) 4 mg tablet Take 1 tablet (4 mg total) by mouth in the morning. follow package directions. 21 tablet 01/08/2025 orphenadrine (NORFLEX) 100 mg 12 hr tablet Take 1 tablet (100 mg total) by mouth daily as needed for muscle spasms. 01/01/2025 documented as of this encounter Plan of Treatment Upcoming Encounters Date Type Department Care Team (Late st Contact Info) Description 02/05/2025 6:45 AM EDT Appointment [facility] - MRI Imaging [address] [place] [id number] 03/12/2025 8:00 AM EDT Office Visit [facility] [address] [place] [address] Violeta Bailey, SYSTEM PROGRAMMER-PHYSIOLOGICAL CHEMIST [address] [place], [place] [phone] Pending Results Name Type Priority Associated Diagnoses Date /Time X-ray spine lumbar ap, lateral, flexion and extension only Imaging Routine Back pain, unspecified back location, unspecified back pain laterality, unspecified chronicity 01/10/2025 2:14 PM EDT Scheduled Orders Name Type Priority Associated Diagnoses Orde r Schedule X-ray spine lumbar ap, lateral, flexion and extension only Imaging Routine Back pain, unspecified back location, unspecified back pain laterality, unspecified chronicity Once for 1 Occurrences starting 01/10/2025 until 01/10/2025 documented as of this encounter Visit Diagnoses Diagnosis Back pain, unspecified back location, unspecified back pain laterality, unspecified chronicity documented in this encounter Additional Health Concerns Assessment Noted Time PHQ-9 Depression Total Score: 0 01/08/20 3:57 PM EDT A Body Mass Index follow-up plan has been documented for the patient 01/08/2025 8:06 AM EDT documented as of this encounter Care Teams Knotter Hand Relationship Specialty Start Date End Date Violeta Bailey APRN-PHYSIOLOGICAL CHEMIST [address] [place] [address] PCP - General Family Medicine 07/25/24 documented as of this encounter
--- OUTSIDE RECORDS SUMMARY | 2025-01-10 14:30 | XMS_ITS | Encounter Summary ---
Author Organization [employer] tem Address [id number] [address] [place] [address] Care Team Providers Care Director Energy Name Role Phone Violeta Bailey Primary Care Provide r Reason for Referral * Diagnostic Imaging (Routine) - Pending Review Specialty Diagnoses / Procedures Referred By Contac t Referred To Contact Radiology Diagnoses Lumbar spondylosis Status post lumbar laminectomy Acute midline low back pain without sciatica Bowel dysfunction Procedures MR lumbar spine without contrast Paulette Goncalves APRN-CNP [address] [facility] [address] [place] [address] Phone: tel: fax: Referral ID Status Reason Start Date Expiration Date V isits Requested Visits Authorized [id number] Pending Review 01/10/2025 01/10/2026 1 1 Reason for Visit * Reason Comments Follow-up Lumbar follow up * Consultation (Routine) - Pending Review Specialty Diagnoses / Procedures Referred By Contac t Referred To Contact Spine Care Diagnoses Lumbar spondylosis Violeta Bailey APRN-CNP [address] [place] [address] Phone: tel: fax: Paulette Goncalves APRN-CNP [address] [facility] [address] [place] [address] Phone: tel: fax: Referral ID Status Reason Start Date Expiration Date V isits Requested Visits Authorized [id number] Pending Review 01/08/2025 01/08/2026 1 1 Encounter Details Date Type Department Care Team (Late st Contact Info) Description 01/10/2025 2:30 PM EDT Office Visit [facility] [address] [place] [phone] Paulette Goncalves, MACHINE ROOM ENGINEER-ELECTRIC TRACK SWITCH MAINTAINER [address] [facility] [address] [place] [address] Status post lumbar laminectomy (Primary Dx); Acute midline low back pain without sciatica; Bowel dysfunction; Lumbar spondylosis Social History Tobacco Use Types Packs/Day Years Used Date Smoking Tobacco: Former Cigarettes 1 - 2012 Smokeless Tobacco: Never Comments:1 pk a day in past Alcohol Use Standard Drinks/Week Comments Yes 0 (1 standard drink = 0.6 oz pur e alcohol) rare-2 drinks/year [facility] Utilities Answer Date Recorded In the past 12 months has [employer], gas, oil, or water company threatened [...] often do you attend chur ch or sabianism services? More than 4 times per year 06/21/2022 Do you belong to any clubs o r organizations such as amish groups, unions, fraternal or athletic groups, or [...] Answer Date Recorded Total Score 0 01/07/2025 [place] of Occupat ional Health - Occupational Stress [...] Recorded Do you need help finding a [facility] career center and/or a training program? [...] file Travel History Travel Start Travel End [place] 12/22/2024 12/28/2024 documented as of this encounter Last Filed Vital Signs Vital Sign Reading Time Taken Comments Blood Pressure 152/109 01/10/2025 2:23 PM EDT Pulse 68 01/10/2025 2:23 PM EDT Temperature - - Respiratory Rate - - Oxygen Saturation - - Inhaled Oxygen Concentration - - Weight 108.9 kg (240 lb) 01/10/2025 2:23 PM EDT Height 162.6 cm (5' 4 ) 01/10/2025 2:23 PM EDT Body Mass Index 41.2 01/10/2025 2:23 PM EDT documented in this encounter Patient Instructions * Patient Instructions* SURAJ Perdomo - 01/10/2025 2:30 PM EDT Patient seen today by Akanksha MRI Lumbar w/o contrast Will call results to georgette MCKEON documented in this encounter Progress Notes * SURAJ Perdomo - 01/10/2025 2:30 PM EDT Images from the original note were not included. [facility] [address] [place] [address], [address] [place] [address] * CHART NOTE ? 01/10/2025 Patient: Callie Gray 1965 [id number] Nurse Practitioner: Paulette Goncalves CNP Physician: Brian Girard MD, FAANS IMPRESSION / PLAN 59 y.o. female status post lumbar laminotomy and diskectomy on 05/15/2024 presents to the clinic asa follow up reporting increased low back pain after hiking while on a recent vacation. She is also admitting to bowel dysfunction stating, since the back pain started, she has had great difficulty moving her bowels. We will obtain an updated lumbar MRI to rule out disc extrusion/central stenosis/cauda equina. She will be notified of the results. Plan of care to include possible referral to Pain Management vs follow up with neurosurgeon. HISTORY OF PRESENT ILLNESS 59 y.o. female status post lumbar laminotomy and diskectomy on 05/15/2024 presents to the clinic asa follow up reporting she was hiking while on vacation on [place] earlier this month. She advises, on the way home, she began to notice midline low back pain that has since improved by 50-60%. Shavonne advises the pain is exacerbated by sleeping and laying down. She admits to difficulty moving her bowels since the symptoms started, advising she feels a pressure. Denies loss of bell spinner sousaphones strength, saddle anesthesia, urinary dysfunction, weakness, numbness or tingling, radicular symptoms, and loss of balance. 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 Had a CT scan done within the year that demonstrated some mild dilation right side some mild caliectasis. No evidence of any stone. No prior history stone. Substantial smoking history in the past. No gross hematuria. Plan: Evaluate urinary tract cystoscopy right retrograde pyelogram. Urine for cytology. Potential ureth Rosacea 05/18/2022 Seasonal allergies Tarsal tunnel syndrome 05/25/2016 Visual impairment Vitamin D deficiency 10/25/2018 PAST SURGICAL HISTORY Past Surgical History: Procedure Laterality Date SECTION x 4 COLONOSCOPY COLONOSCOPY N/A 12/17/2022 Performed by Denzel Sharif MD at [facility] ENDOSCOPY COLONOSCOPY DIAGNOSTIC / SCREENING N/A 01/04/2024 Performed by Janelle Boone MD at [facility] DAVINCI COLECTOMY SIGMOID N/A 01/30/2024 Performed by Janelle Boone MD at [facility] DECOMPRESSION LUMBAR LAMINOTOMY / L4/5 AND DISCECTOMY Right 05/15/2024 Performed by Brian Girard MD at [facility] INJECTION BLOCK SACROILIAC JOINT Bilateral 01/20/2024 Performed by Simeon Joe MD at [facility] SOCIAL HISTORY Social History Socioeconomic History Marital status: Spouse name: Not on file Number of children: Not on file Years of education: Not on file Highest education level: Not on file Occupational History Not on file Tobacco Use Smoking status: Former Current packs/day: 0.00 Average packs/day: 1 pack/day for 7.0 years (7.0 ttl pk-yrs) Types: Cigarettes Start date: 2005 Quit date: 2013 Years since quittin.4 Smokeless tobacco: Never Tobacco comments: 1 pk a day in past Vaping Use Vaping status: Never Used Substance and Sexual Activity Alcohol use: Yes Comment: rare-2 drinks/year Drug use: Never Sexual activity: Defer Partners: Male control/protection: Surgical Other Topics Concern Not on file Social History Narrative Not on file Social Drivers of Health Financial Resource Strain: Low Risk (03/02/2024) Overall Financial Resource Strain (CARDIA) Difficulty of Paying Living Expenses: Not hard at all Food Insecurity: No Food Insecurity (01/10/2025) Hunger Screening Food Insecurity - Worry: Never True Food Insecurity - Inability: Never True Transportation Needs: No Transportation Needs (05/15/2024) PRAPARE - Transportation Lack of Transportation (Medical): No Lack of Transportation (Non-Medical): No Physical Activity: Inactive (06/21/2022) Exercise Vital Sign Days of Exercise per Week: 0 days Minutes of Exercise per Session: 0 min Stress: No Stress Concern Present (06/21/2022) [place] [facility]ational Health - Occupational Stress Questionnaire Feeling of Stress : Not at all Social Connections: Socially Integrated (06/21/2022) Social Connection and Isolation Panel [NHANES] Frequency of Communication with Friends and Family: More than three times a week Frequency of Social Gatherings with Friends and Family: More than three times a week Attends Confucianist Services: More than 4 times per year Active Member of Clubs or Organizations: Yes Attends Club or Organization Meetings: More than 4 times per year Marital Status: Interpersonal Safety: Not At Risk (05/15/2024) Humiliation, Afraid, Rape, and Kick questionnaire Fear of Current or Ex-Partner: No Emotionally Abused: No Physically Abused: No Sexually Abused: No Housing Instability: Low Risk (05/15/2024) Housing Instability Housing Instability: No REVIEW OF SYSTEMS ROS Positive Findings: Negative otherwise noted in the HPI PHYSICAL EXAMINATION Alert Oriented No percussion tenderness along spine Absent Lhermitte's Absent Spurling ROM of the low back is decreased with extension No weakness No pathological reflexes No atrophy No fasciculations Sensation to light touch is normal in gr dermatomes JOHN is negative SLR is positive on the left MRI / IMAGES Lumbar x-rays 01/10/2025 Lumbar x-rays show multilevel disc space narrowing that is greatest at L3-4, L4- 5 and L5-S1 with facet arthropathy of the lower lumbar spine and anterior bone spurring that is greatest at L3-4. Electronically Signed By: Paulette Goncalves CNP This note was created with the assistance of a speech recognition program with the goal of generating a timely record of the patient encounter. Inadvertent computerized fire sprinkler designer errors related to syntax, spelling, homophones, and/or inaudibility may be present. SURAJ Perdomo 01/10/25 1528 documented in this encounter Plan of Treatment Upcoming Encounters Date Type Department Care Team (Late st Contact Info) Description 02/05/2025 6:45 AM EDT Appointment [facility] - MRI Imaging [address] [place] [address] 03/12/2025 8:00 AM EDT Office Visit [facility] Family Medicine [address] [place] [phone] Violeta Bailey APRN-CNP [address] [address] Scheduled Orders Name Type Priority Associated Diagnoses Orde r Schedule MR lumbar spine without contrast Imaging Routine Lumbar spondylosis Status post lumbar laminectomy Acute midline low back pain without sciatica Bowel dysfunction 1 Occurrences starting 01/10/2025 until 01/10/2026 documented as of this encounter Visit Diagnoses Diagnosis Status post lumbar laminectomy- Primary Acute midline low back pain without sciatica Bowel dysfunction Lumbar spondylosis Lumbosacral spondylosis without myelopathy documented in this encounter Additional Health Concerns Assessment Noted Time PHQ-9 Depression Total Score: 0 01/08/20 3:57 PM EDT A Body Mass Index follow-up plan has been documented for the patient 01/08/2025 8:06 AM EDT documented as of this encounter Care Teams Director Energy Relationship Specialty Start Date End Date Violeta Bailey APRN-CNP [address] [place] [address] PCP - General Family Medicine 07/25/24 documented as of this encounter
[2025-01-12 05:40] VITALS: BP 160/72; PULSE 79; TEMP 36.6; BMI 41.2
--- NOTE | 2025-01-12 05:50 | PC.NURSE ---
Pain to right knee, no swelling, bruising or redness noted.
--- OUTSIDE RECORDS SUMMARY | 2025-01-12 05:54 | XMS_ITS | Encounter Summary ---
Author Organization [facility] Address [id number] [address] [place] [address] Care Team Providers Care Information Technology Account Manager Name Role Phone MichnidhijosueVioleta magaña REGULATORY INTERNSHIP-OUTREACH TEAM MEMBER Primary Care Provide r Encounter Details Date Type Department Care Team (Late Contact Info) Description 04/17/2024 Documentation [facility] [address] [place] [address] Jennifer Patel CMA Social History Tobacco Use Types Packs/Day Years Used Date Smoking Tobacco: Former Cigarettes 1 - 2012 Smokeless Tobacco: Never Alcohol Use Standard Drinks/Week Comments Yes 0 (1 standard drink = 0.6 oz pur e alcohol) rare-2 drinks/year [facility] Utilities Answer Date Recorded In the past 12 months has [email or web address], gas, oil, or water [employer] threatened to shut off services in your [...] How often do you attend chur or denominational services? More than 4 times per year 06/21/2022 Do you belong to any clubs o r organizations such as christianity groups, unions, fraternal or athletic groups, or [...] Answer Date Recorded Total Score 0 04/09/2024 [facility] of Occupat ional Health - Occupational Stress [...] file Travel History Travel Start Travel End [place] 12/22/2024 12/28/2024 documented as of this encounter Plan of Treatment Upcoming Encounters Date Type Department Care Team (Late st Contact Info) Description 02/05/2025 6:45 AM EDT Appointment [facility] - MRI Imaging [address] [place] [address] 03/12/2025 8:00 AM EDT Office Visit [facility] [address] [place] [phone] Violeta Bailey APRN-CNP [address] [place] [address] documented as of this encounter Visit Diagnoses Not on filedocumented in this encounter Additional Health Concerns Assessment Noted Time PHQ-9 Depression Total Score: 0 04/09/20 24 7:00 AM EDT documented as of this encounter Care Teams Information Technology Account Manager Relationship Specialty Start Date End Date Violeta Bailey APRN-OUTREACH TEAM MEMBER [address] [place], [place] [phone] PCP - General Family Medicine 07/25/24 documented as of this encounter
--- OUTSIDE RECORDS SUMMARY | 2025-01-12 05:54 | XMS_ITS | CCD ---
Author Organization [facility] CliniSyut Care Team Providers Care Tutor Coordinator Name Role Phone Yesica Sunshine Unavailable LAURY, DR SERVANDO Barbour Admitting Unavailable FURLONG, DR SREVANDO Barbour Attending Unavailable FURLONG, DR SERVANDO Barbour Referring Unavailable FURLONG, DR SERVANDO Barbour Primary Care Unavailable FURLONG, DR SERVANDO Barbour Consulting Unavailable ELENA, PHILIP Admitting Unavailable ELENA, PHILIP Attending Unavailable FURLONG, DR SERVANDO Barbour Primary Care Unavailable LUCITA, DR BELÉN Sánchez Consulting Unavailable ELENA, PHILIP Consulting Unavailable ASHISH, DR SERA Sánchez Admitting Unavailable KUNS, DR SERA Sánchez Attending Unavailable FURLONG, DR SERVANDO Barbour Primary Care Unavailable ALTAVISTA, DR JUSTINA Garcia Consulting Unavailable KUNS, DR SERA Sánchez Consulting Unavailable FURLONG, DR SERVANDO Barbour Admitting Unavailable FURLONG, DR SERVANDO Barbour Attending Unavailable FURLONG, DR SERVANDO Barbour Primary Care Unavailable María Hager Unavailable BRIAN GIRARD Referring Unavailable JUSTINA VALDEZ Primary Care Unavailable BRIAN GIRARD Referring Unavailable JUSTINA VALDEZ Primary Care Unavailable BRIAN GIRARD Referring Unavailable JUSTINA VALDEZ Primary Care Unavailable BRIAN GIRARD Admitting Unavailable BRIAN GIRARD Attending Unavailable JUSTINA VALDEZ Primary Care Unavailable Justina Valdez MD Primary Care Provider [phone] Justina Valdez MD Primary Care Provider [phone] Daina Loyola Primary Care Provide r Daina Loyola Primary Care Provide r JUSTINA VALDEZ Referring Unavailable JUSTINA VALDEZ Primary Care Unavailable JUSTINA VALDEZ Referring Unavailable JUSTINA VALDEZ Primary Care Unavailable BENJAMIN STEIN Referring Unavailable DEFRANCE, JUSTINA T Primary Care Unavailable DEFRANCE, JUSTINA T Referring Unavailable DEFRANCE, JUSTINA T Primary Care Unavailable PARKMAVERICK Admitting Unavailable PARKMAVERICK Attending Unavailable PARK, MAVERICK Ulloa Referring Unavailable DEFRANCE, JUSTINA T Primary Care Unavailable ANGIE SWIFT Attending Unavailable DEFRANCE, JUSTINA T Primary Care Unavailable PARKMAVERICK Attending Unavailable PARK, MAVERICK M Referring Unavailable DEFRANCE, JUSTINA T Primary Care Unavailable LUCILA VERDUGO Attending Unavailable BENJAMIN STEIN Referring Unavailable DEFRANCE, JUSTINA T Primary Care Unavailable DEFRANCE, JUSTINA T Referring Unavailable DEFRANCE, JUSTINA T Primary Care Unavailable PARK, MAVERICK M Attending Unavailable PARK REINABETYBETHANIE Ulloa Referring Unavailable DEFRANCE, JUSTINA T Primary Care Unavailable PARK, MAVERICK M Referring Unavailable DEFRANCE, JUSTINA T Primary Care Unavailable SIMEON JOE Attending Unavailable SIMEON JOE Referring Unavailable DEFRANCE, JUSTINA Feliciano Primary Care Unavailable SIMEON JOE Admitting Unavailable SIMEON JOE Attending Unavailable BENJAMIN STEIN Referring Unavailable DEFRANCE, JUSTINA T Primary Care Unavailable PARK, MAVERICK Ulloa Referring Unavailable DEFRANCE, JUSTINA T Primary Care Unavailable BENJAMIN STEIN Referring Unavailable DEFRANCE, JUSTINA Feliciano Primary Care Unavailable PARKMAVERICK Admitting Unavailable PARKMAVERICK Attending Unavailable DEFRANCE, JUSTINA T Primary Care Unavailable ERLINJUSTINA RODRIGUEZ Attending Unavailable DEFRANCE, JUSTINA T Primary Care Unavailable LUCILA VERDUGO Attending Unavailable DEFRANCE, JUSTINA T Referring Unavailable DEFRANCE, JUSTINA T Primary Care Unavailable PARKMAVERICK Attending Unavailable PARK, MAVERICK M Referring Unavailable DEFRANCE, JUSTINA T Primary Care Unavailable PARK, MAVERICK Ulloa Referring Unavailable DEFRANCE, JUSTINA T Primary Care Unavailable DEFRANCE, JUSTINA T Referring Unavailable DEFRANCE, JUSTINA T Primary Care Unavailable LUCILA VERDUGO Attending Unavailable MARKRANCE, JUSTINA T Referring Unavailable DEFRANCE, JUSTINA T Primary Care Unavailable DEFRANCE, JUSTINA T Primary Care Unavailable ANALIA WEINSTEIN Attending Unavailab ANALIA Kaur Attending Unavailab ANALIA Kaur Referring Unavailab le DEFRANCE, JUSTINA T Primary Care Unavailable DEFRANCE, JUSTINA T Primary Care Unavailable ROSMERY RED Attending Unavailable BENJAMIN STEIN Referring Unavailable DEFRANCE, JUSTINA T Primary Care Unavailable BENJAMIN STEIN Referring Unavailable SCHLACHTER, DAINA Primary Care Unavailable STEINBENJAMIN Referring Unavailable SCHLACHTER, DAINA Primary Care Unavailable STEINBENJAMIN Referring Unavailable SCHLACHTER, DAINA Primary Care Unavailable SCHLACHTER, DAINA Referring Unavailable SCHLACHTER, DAINA Primary Care Unavailable MAVERICK NICK Attending Unavailable DEFRANCE, JUSTINA Feliciano Referring Unavailable DEFRANCE, JUSTINA Feliciano Primary Care Unavailable MAVERICK NICK Attending Unavailable DEFRANCE, JUSTINA Feliciano Referring Unavailable DEFRANCE, JUSTINA Feliciano Primary Care Unavailable DEFRANCE, JUSTINA Feliciano Attending Unavailable DEFRANCE, JUSTINA Feliciano Referring Unavailable DEFRANCE, JUSTINA Feliciano Primary Care Unavailable DEFRANCE, JUSTINA Feliciano Attending Unavailable DEFRANCE, JUSTINA Feliciano Referring Unavailable DEFRANCE, JUSTINA Feliciano Primary Care Unavailable MAVERICK NICK Attending Unavailable DEFRANCE, JUSTINA Feliciano Referring Unavailable DEFRANCE, JUSTINA Feliciano Primary Care Unavailable DEFRANCE, JUSTINA Feliciano Attending Unavailable DEFRANCE, JUSTINA Feliciano Referring Unavailable DEFRANCE, JUSTINA Feliciano Primary Care Unavailable BRIAN GIRARD Attending Unavailable DEFRANCE, JUSTINA Feliciano Referring Unavailable DEFRANCE, JUSTINA Feliciano Primary Care Unavailable MAVERICK NICK Attending Unavailable DEFRANCE, JUSTINA Feliciano Referring Unavailable DEFRANCE, JUSTINA Feliciano Primary Care Unavailable DEFRANCE, JUSTINA Feliciano Attending Unavailable DEFRANCE, JUSTINA Feliciano Referring Unavailable DEFRANCE, JUSTINA Feliciano Primary Care Unavailable BENJAMIN STEIN Attending Unavailable DEFRANCE, JUSTINA Feliciano Referring Unavailable DEFRANCE, JUSTINA Feliciano Primary Care Unavailable STEINBENJAMIN Attending Unavailable SCHLACHTERDAINA Referring Unavailable SCHLACHTER, DAINA Primary Care Unavailable SCHLACHTER, DAINA Attending Unavailable SCHLACHTER, DAINA Referring Unavailable SCHLACHTER, DAINA Primary Care Unavailable SCHLACHTER, DAINA Attending Unavailable SCHLACHTER, DAINA Referring Unavailable SCHLACHTER, DAINA Primary Care Unavailable SCHLACHTER, DAINA Attending Unavailable SCHLACHTER, DAINA Referring Unavailable SCHLACHTER, DAINA Primary Care Unavailable SCHLACHTER, DAINA Attending Unavailable SCHLACHTER, DAINA Referring Unavailable SCHLACHTER, DAINA Primary Care Unavailable Allergies Allergy Classification Reported Allergen(s) Allergy Type Date of Onset Reaction(s) Facility (20 sources) Amoxicillin; Translations: [AMOXICILLIN] Drug Allergy 4 [facility] (6 sources) Penicillin G Drug Allergy 4 [facility] (1 source) Iodine (And Iodine Containting Drugs) Drug allergy (disorder) [facility] Repository (6 sources) Penicillins; Translations: [PENICILLINS] Drug allergy (disorder) 3 [facility] Repository (2 sources) Contrast media Allergy to substance 4 [facility] (20 sources) IODINATED CONTRAST MEDIA; Translations: [IODINATED CONTRAST MEDIA] Propensity to adverse reactions to drug (disorder) 0 [facility], [facility]) Penicillins Propensity to adverse reactions to drug 0 [facility] (5 sources) Penicillins Propensity to adverse reactions to drug 0 [facility] Medications Current Medications Medication Drug Class(es) Dates Sig (Normalized) Sig (Original) acetaminophen 325 mg / oxyCODONE hydrochloride 5 mg oral tablet (9 sources) Opioid Agonist Start: 05-16-2024 End: 05-23-2024 oxyCODONE-acetamino phen (PERCOCET) 5-325 mg per tablet Indications: Spinal stenosis of lumbar region with neurogenic claudication Take 1-2 tablets by mouth every 6 (six) hours as needed for pain for up to 7 days. Max Daily Amount: 8 tablets 56 tablet 05/16/2024 05/23/2024 Active Start: 05-15-2024 End: 05-16-2024 take 1 tablet by mouth every four hours as needed for pain oxyCODONE-acetaminophen (PERCOCET) 5-325 mg per tablet 1 tablet Start: 04-09-2024 End: 04-24-2024 take 1 tablet by mouth every eight hours as needed for pain, then take 3 tablets by mouth once daily as needed for pain oxyCODONE-acetaminophen (PERCOCET) 5-325 mg per tablet Indications: Displacement of left side of L4-L5 intervertebral disc Take 1 tablet by mouth every 8 (eight) hours as needed for pain for up to 7 days. 3 Day Supply Max Daily Amount: 3 tablets 21 tablet 04/17/2024 04/24/2024 Active Start: 04-06-2024 End: 04-09-2024 take 1 tablet by mouth every six hours as needed for pain, then take 4 tablets by mouth once daily as needed for pain oxyCODONE-acetaminophen (PERCOCET) 5-325 mg per tablet Indications: Displacement of left side of L4-L5 intervertebral disc Take 1 tablet by mouth every 6 (six) hours as needed for pain for up to 3 days. 3 Day Supply Max Daily Amount: 4 tablets 12 tablet 04/06/2024 04/09/2024 Discontinued (Reorder) [id number] 200 actuat albuterol 0.09 mg/actuat metered dose inhaler (1 source) beta2-Adrenergic Agonist Start: 09-09-2022 take 2 puff(s) by inhalation every four hours as needed Albuterol Sulfate HFA 108 (90 Base) MCG/ACT 2 puffs as needed Inhalation every 4 hrs Aug, Active Albuterol Sulfate 90 mcg/actuation HFA aerosol inhaler (1 source) Start: 09-17-2024 Albuterol Sulfate 90 mcg/actuation HFA aerosol inhaler Active 2 INH INHALATION EVERY 4-6 HOURS as needed for shortness of breath or wheezing 6.7 September 17, 2024 12:00am azithromycin 250 mg oral tablet (3 sources) Macrolide Antimicrobial Start: 05-08-2024 End: 05-13-2024 azithromycin (ZITHROMAX) 250 mg tablet Take 2 tablets the first day, then 1 tablet daily for 4 days. 6 tablet 05/08/2024 05/13/2024 Active Start: 03-14-2024 End: 03-19-2024 take 1 tablet by mouth in the morning, then take 2 tablets by mouth once daily, then take 1 tablet by mouth once daily azithromycin (ZITHROMAX) 250 mg tablet Take 1 tablet (250 mg total) by mouth in the morning for 5 days. Take 2 tablets the first day, then 1 tablet daily for 4 days.. 6 tablet 03/14/2024 03/19/2024 Active bisacodyl 10 mg rectal suppo sitory (1 source) Stimulant Laxative Start: 05-17-2024 End: 05-16-2024 Start: 05-17-2024 End: 05-16-2024 dextromethorphan hydrobromide 1.5 mg/ml / pyrilamine maleate 1.5 mg/ml oral solution (1 source) Uncompetitive E-ccgubn-K-aspartate Receptor Antagonist, Sigma-1 Agonist Start: 09-09-2022 [place] DM 7.5-7.5 MG/5ML 10 ml Orally every 6-8 hours as needed for 8 days Aug, Active doxycycline hyclate 100 mg oral capsule (1 source) Tetracycline-class Drug Start: 10-08-2024 End: 10-18-2024 take 1 capsule by mouth in the morning, then take 1 capsule by mouth at bedtime doxycycline (VIBRAMYCIN) 100 mg capsule Take 1 capsule (100 mg total) by mouth in the morning and 1 capsule (100 mg total) before bedtime. Do all this for 10 days. 20 capsule 10/08/2024 10/18/2024 Active magnesium hydroxide 80 mg/ml oral suspension (1 source) Start: 05-17-2024 End: 05-16-2024 Start: 05-17-2024 End: 05-16-2024 methylPREDNISolone 4 mg oral tablet (14 sources) Corticosteroid Start: 10-22-2024 End: 01-07-2025 take 1 tablet by mouth in the morning methylPREDNISolone (MEDROL, RADHA,) 4 mg tablet Take 1 tablet (4 mg total) by mouth in the morning. follow package directions. 21 tablet 01/08/2025 Active Start: 06-25-2024 End: 10-08-2024 methylPREDNISolone (MEDROL, RADHA,) 4 mg tablet Indications: Muscle spasm of back , Status post lumbar laminectomy Take 1 tablet (4 mg total) by mouth See Admin Instructions. Use as directed by package instructions 21 tablet 06/25/2024 10/08/2024 Discontinued Start: 04-05-2024 End: 04-09-2024 methylPREDNISolone (MEDROL, RADHA,) 4 mg tablet follow package directions 21 tablet 04/05/2024 04/09/2024 Discontinued (Alternate therapy) Start: 04-05-2024 methylPREDNISo lone (MEDROL, RADHA,) 4 mg tablet follow package directions 21 tablet 04/05/2024 Active Start: 12-27-2023 methylPREDNISo lone (MEDROL, RADHA,) 4 mg tablet Indications: Chronic midline low back pain with left-sided sciatica , Bulging lumbar disc , Lumbar foraminal stenosis Take 1 tablet (4 mg total) by mouth See Admin Instructions. Use as directed by package instructions 21 tablet 12/27/2023 Active Start: 09-09-2022 methylPREDNISo lone 4 MG as directed Orally Once a day for 6 days Aug, Active metroNIDAZOLE 500 mg oral tablet (7 sources) Nitroimidazole Antimicrobial Start: 01-10-2024 End: 01-11-2024 take 1 tablet by mouth three times daily metroNIDAZOLE (FlagyL) 500 mg tablet Take 1 tablet (500 mg total) by mouth 3 (three) times a day for 1 day. 3 tablet 01/10/2024 01/11/2024 Active Start: 11-03-2023 End: 11-24-2023 take 1 tablet by mouth three times daily metroNIDAZOLE (FLAGYL) 500 mg tablet take 1 tablet by mouth three times a day for 7 days 11/03/2023 11/24/2023 Discontinued (Alternate therapy) minocycline 100 mg oral capsule (2 sources) Tetracycline-class Drug Start: 09-06-2022 End: 09-06-2023 minocycline (MINOCIN,DYNACIN) 100 mg capsule minocycline 100 mg capsule Strength: 100 mg daily 90 capsule 3 09/06/2022 09/06/2023 Active Minocycline Acti ve neomycin sulfate 500 mg oral tablet (1 source) Aminoglycoside Antibacterial Start: 01-10-2024 End: 01-11-2024 take 2 tablets by mouth three times daily neomycin (MYCIFRADIN) 500 mg tablet Take 2 tablets (1,000 mg total) by mouth 3 (three) times a day for 1 day. 6 tablet 01/10/2024 01/11/2024 Active 12 hr orphenadrine citrate 100 mg extended release oral tablet (3 sources) Muscle Relaxant Start: 01-01-2025 take 1 tablet by mouth once daily as needed for muscle spasms orphenadrine (NORFLEX) 100 mg 12 hr tablet Take 1 tablet (100 mg total) by mouth daily as needed for muscle spasms. 01/01/2025 Active predniSONE 10 mg oral tablet (6 sources) Start: 10-08-2024 End: 10-16-2024 take 6 tablets by mouth once daily, then take 1 tablet by mouth once daily at mealtime predniSONE (STERAPRED DS) 10 mg tablet pack Take by mouth daily for 8 days. 6 tabs qd x 3 d then 1 less each day with food 33 tablet 10/08/2024 10/16/2024 Active Start: 09-17-2024 take 2 tablets by mo uth once daily Prednisone 20 mg tablet Active 40 MG PO Daily 04 28September 17, 2024 12:00am Start: 04-09-2024 End: 04-17-2024 take 6 tablets by mouth once daily, then take 1 tablet by mouth once daily at mealtime predniSONE (STERAPRED DS) 10 mg tablet pack Take by mouth daily for 8 days. 6 tabs qd x 3 d then 1 less each day with food 33 tablet 04/09/2024 04/17/2024 Active Start: 09-02-2023 End: 09-10-2023 take 6 tablets by mouth once daily, then take 1 tablet by mouth once daily at mealtime predniSONE (STERAPRED DS) 10 mg tablet pack Take by mouth daily for 8 days. 6 tabs qd x 3 d then 1 less each day with food 33 tablet 0 09/02/2023 09/10/2023 Active Vitamin D (1 source) Vitamin D Active Completed/Discontinued Medications Medication Drug Class(es) Dates Sig (Normalized) Sig (Original) acetaminophen 325 mg oral tablet (3 sources) Start: 05-15-2024 End: 05-16-2024 take 1 tablet by mouth every four hours as needed for pain Start: 05-15-2024 End: 05-15-2024 take 1000 mg by mouth once 1,000 mg, oral, Once, On 05/15/24 at 1530, For 1 dose, Pre-op Start: 02-01-2024 End: 02-14-2024 take 2 tablets by mouth every six hours acetaminophen (TYLENOL EXTRA STRENGTH) 500 mg tablet Take 2 tablets (1,000 mg total) by mouth every 6 (six) hours. 30 tablet 02/01/2024 02/14/2024 Discontinued (Therapy completed) acetaminophen 325 mg / HYDROcodone bitartrate 5 mg oral tablet (4 sources) Opioid Agonist End: 05-16-2024 take 1 tablet by mouth every six hours as needed for pain HYDROcodone-acetaminophen (NORCO) 5-325 mg per tablet Take 1 tablet by mouth every 6 (six) hours as needed for pain. 05/16/2024 Discontinued (Stop Taking at Discharge) aprepitant 40 mg oral capsule (1 source) Substance P/Neurokinin-1 Receptor Antagonist Start: 05-15-2024 End: 05-15-2024 take 40 mg by mouth once 40 mg, oral, Once, On Tue05/15/24 at 1530, For 1 dose, Pre-op Start: 05-15-2024 End: 05-15-2024 take 40 mg by mouth once 40 mg, oral, Once, On Tue at 1530, For 1 dose, Pre-op ascorbic acid 250 mg oral tablet (8 sources) Vitamin C Start: 06-21-2022 End: 11-24-2023 take 1 tablet by mouth in the morning ascorbic acid, vitamin C, (vitamin C) 250 mg tablet Take 1 tablet (250 mg total) by mouth in the morning. 90 tablet 3 06/21/2022 11/24/2023 Discontinued (Alternate therapy) BENEFIBER, WHEAT DEXTRIN, ORAL (8 sources) End: 11-24-2023 BENEFIBER, WHEAT DEXTRIN, ORAL Take by mouth. 11/24/2023 Discontinued (Alternate therapy) BENEFIBER, WHEAT DEXTRIN, ORAL Take by mouth. Active BENEFIBER, WHEAT DEXTRIN, ORAL Take by mouth. 0 Active calcium chloride 0.0014 meq/ml / potassium chloride 0.004 meq/ml / sodium chloride 0.103 meq/ml / sodium lactate 0.028 meq/ml injectable solution (2 sources) Start: 05-15-2024 End: 05-16-2024 take 75 mL intravenously every hour 75 mL/hr, intravenous, Continuous, Starting on Tue05/15/24 at 1800, PACU (only) ceFAZolin (ANCEF) 2,000 mg in sodium chloride 0.9 % 50 mL IVPB-MBP (1 source) Start: 05-15-2024 End: 05-16-2024 take 2000 mg intravenously every eight hours 2,000 mg, intravenous, at 100 mL/hr, Administer over 30 Minutes, Every 8 hours, First dose on Tue05/15/24 at 2045, For 2 doses, Pharmacy to adjust per renal function; Start 8 hours after pre-op dose for total of 3 doses including pre-op dose. Infuse all doses within 24 hours of initial dose. For patient less than 120 kg. ADD-VANTAGE/MBP- Discard 24 hours after activating; dissolve drug prior to administration, Indication: Surgical prophylaxis cefdinir 300 mg oral capsule (1 source) Cephalosporin Antibacterial Start: 11-03-2023 End: 11-09-2023 take 1 capsule by mouth twice daily cefDINIR (OMNICEF) 300 mg capsule take 1 capsule by mouth twice a day for 7 days 11/03/2023 11/09/2023 Discontinued (Alternate therapy) cholecalciferol 0.125 mg oral capsule (8 sources) Vitamin D End: 11-24-2023 take 1 capsule by mouth once daily cholecalciferol, vitamin D3, (VITAMIN D3) 5,000 units capsule cholecalciferol (vitamin D3) 125 mcg (5,000 unit) capsule take 1 capsule by mouth once daily 11/24/2023 Discontinued (Alternate therapy) ciprofloxacin 500 mg oral tablet (7 sources) Quinolone Antimicrobial Start: 11-09-2023 End: 11-24-2023 take 1 tablet by mouth in the morning, then take 1 tablet by mouth at bedtime ciprofloxacin HCl (CIPRO) 500 mg tablet Take 1 tablet (500 mg total) by mouth in the morning and 1 tablet (500 mg total) before bedtime. Do all this for 7 days. 14 tablet 11/16/2023 11/24/2023 Discontinued (Alternate therapy) codeine phosphate 2 mg/ml / guaiFENesin 20 mg/ml oral solution (5 sources) Opioid Agonist Start: 10-08-2024 End: 01-07-2025 take 10 mL by mouth three times daily as needed for cough codeine-guaiFENesi n (guaiFENesin AC) 10-100 mg/5 mL liquid Indications: Bronchitis Take 10 mL by mouth 3 (three) times a day as needed for cough. 473 mL 10/22/2024 01/07/2025 Discontinued cyclobenzaprine hydrochloride 10 mg oral tablet (20 sources) Muscle Relaxant Start: 06-25-2024 End: 10-08-2024 take 1 tablet by mouth once daily as needed for muscle spasms cyclobenzaprine (FLEXERIL) 10 mg tablet Indications: Muscle spasm of back Take 1 tablet (10 mg total) by mouth nightly as needed for muscle spasms. 30 tablet 06/25/2024 10/08/2024 Discontinued Start: 04-09-2024 End: 10-08-2024 take 1 tablet by mouth three times daily as needed for muscle spasms cyclobenzaprine (FLEXERIL) 10 mg tablet Take 1 tablet (10 mg total) by mouth 3 (three) times a day as needed for muscle spasms. 30 tablet 1 04/26/2024 10/08/2024 Discontinued Start: 04-02-2024 End: 04-09-2024 take 1 tablet by mouth once daily cyclobenzaprine (FLEXERIL) 10 mg tablet Take 1 tablet (10 mg total) by mouth nightly. 30 tablet 1 04/03/2024 04/09/2024 Discontinued (Reorder) Start: 05-30-2023 End: 11-24-2023 take 1 tablet by mouth once daily cyclobenzaprine (FLEXERIL) 10 mg tablet Take 1 tablet (10 mg total) by mouth nightly. 30 tablet 1 09/29/2023 11/24/2023 Discontinued (Alternate therapy) diazePAM 5 mg oral tablet (1 source) Benzodiazepine Start: 05-15-2024 End: 05-16-2024 take 1 tablet by mouth every eight hours 5 mg, oral, Every 8 hours, First dose on Tue05/15/24 at 204, Look-alike/sound-alike medication - verify indication for use. Do not use solution in feeding tubes (due to absorption to plastic tubing). Tablets may be crushed and administered in tubes (except j-tube) docusate sodium 100 mg oral capsule (1 source) Start: 11-03-2023 End: 11-09-2023 take 1 capsule by mouth twice daily docusate sodium (COLACE) 100 mg capsule take 1 capsule by mouth twice a day for stool softener 11/03/2023 11/09/2023 Discontinued (Alternate therapy) docusate sodium 50 mg / sennosides, chcf 8.6 mg oral tablet (7 sources) Start: 05-16-2024 End: 10-08-2024 take 1 tablet by mouth in the morning sennosides-docusate sodium (SENOKOT-S) 8.6-50 mg Take 1 tablet by mouth in the morning and 1 tablet before bedtime. 30 tablet 05/16/2024 10/08/2024 Discontinued 1 ml fentaNYL 0.05 mg/ml injection (2 sources) Opioid Agonist Start: 05-15-2024 End: 05-16-2024 50 mcg, intravenous, Every 5 min PRN, Pain Scale 6-10, Starting on Tue05/15/24 at 1753, PACU (only), Up to a maximum dose of 150 mcg. Look-alike/sound-alike medication - verify indication for use. Start: 05-15-2024 End: 05-16-2024 25 mcg, intravenous, Every 5 min PRN, Pain Scale 1-5, Starting on Tue05/15/24 at 1753, PACU (only), Up to a maximum dose of 150 mcg. Look-alike/sound-alike medication - verify indication for use. fexofenadine hydrochloride 180 mg oral tablet (8 sources) Histamine-1 Receptor Antagonist Start: 06-21-2022 End: 11-24-2023 take 1 tablet by mouth in the morning fexofenadine (NORBERTO) 180 mg tablet Indications: Allergic rhinitis Take 1 tablet (180 mg total) by mouth in the morning. 30 tablet 2 06/21/2022 11/24/2023 Discontinued (Alternate therapy) gabapentin 300 mg oral capsule (20 sources) Anti-epileptic Agent Start: 04-26-2024 End: 10-08-2024 gabapentin (NEURONTIN) 300 mg capsule Indications: Lumbosacral spondylosis without myelopathy Take 1 capsule (300 mg total) by mouth See Admin Instructions. Take 1 tablet by mouth at bedtime for 3 nights, then take 1 tablet by mouth twice daily for 3 days, then take 1 tablet by mouth three times daily thereafter 81 capsule 04/26/2024 10/08/2024 Discontinued Start: 02-25-2024 End: 04-17-2024 take 1 capsule by mouth three times daily gabapentin (NEURONTIN) 300 mg capsule Indications: Post-op pain Take 1 capsule (300 mg total) by mouth 3 (three) times a day for 28 days. 84 capsule 03/19/2024 04/17/2024 Discontinued (Alternate therapy) glucagon (rdna) 1 mg injecti on (1 source) Antihypoglycemic Agent Start: 05-15-2024 End: 05-16-2024 150 ml glucose 50 mg/ml inje ction (3 sources) Start: 05-15-2024 End: 05-16-2024 Start: 05-15-2024 End: 05-16-2024 Start: 05-15-2024 End: 05-16-2024 1 ml hydrALAZINE hydrochloride 20 mg/ml injection (1 source) Arteriolar Vasodilator Start: 05-15-2024 End: 05-16-2024 5 mg, intravenous, Every 10 min PRN, high blood pressure, systolic blood pressure greater than 160 mmHg, Starting on Tue05/15/24 at 1753, PACU (only), Maximum dose of hydrALAZINE (APRESOLINE) is 20 mg while in PACU Look-alike/sound-alike medication - verify indication for use. Administer IV doses as a slow IV push; maximum rate: 5 mg/minute. hydrocortisone 25 mg/ml topical cream (8 sources) Corticosteroid Start: 04-04-2023 End: 11-24-2023 hydrocortisone (HYTONE) 2.5 % cream Indications: Eczema, unspecified type Apply topically as needed for rash (rash). 30 g 5 04/04/2023 11/24/2023 Discontinued (Alternate therapy) 0.5 ml HYDROmorphone hydrochloride 1 mg/ml prefilled syringe (2 sources) Opioid Agonist Start: 05-15-2024 End: 05-16-2024 0.4 mg, intravenous, Every 5 min PRN, for Pain Scale 6-10 if pain not controlled by fentanyl, Starting on Tue05/15/24 at 1753, PACU (only), Up to a maximum of 1.2 mg Look-alike/sound-alike medication - verify indication for use. Start: 05-15-2024 End: 05-16-2024 0.2 mg, intravenous, Every 5 min PRN, Pain Scale 1-5 if pain not controlled by fentanyl, Starting on Tue05/15/24 at 1753, PACU (only), Up to a maximum of 1.2 mg Look-alike/sound-alike medication - verify indication for use. labetalol hydrochloride 5 mg/ml injectable solution (1 source) beta-Adrenergic Suze Start: 05-15-2024 End: 05-16-2024 5 mg, intravenous, Every 5 min PRN, high blood pressure, systolic blood pressure greater than 160 mmHg and heart rate greater than 60 beats per minute, Starting on Tue05/15/24 at 1753, PACU (only), Maximum dose of labetalol (TRANDATE) is 20 mg while in PACU Look-alike/sound-alike medication - verify indication for use. lactobacillus acidophilus [id number] unt / pectin 100 mg oral tablet (8 sources) End: 11-24-2023 acidophilus-pectin, citrus 25 million cell -100 mg tablet Take by mouth 3 (three) times a day with meals. 11/24/2023 Discontinued (Alternate therapy) 10 ml lidocaine hydrochloride 10 mg/ml injection (1 source) Antiarrhythmic, Amide Local Anesthetic Start: 05-15-2024 End: 05-16-2024 1 mg (0.1 mL), intradermal, As needed, times 1 per IV attempt for IV start pain control, Starting on Tue05/15/24 at 1519, Pre-op meloxicam 15 mg oral tablet (9 sources) Nonsteroidal Anti-inflammatory Drug Start: 05-30-2023 End: 11-24-2023 take 1 tablet by mouth in the morning meloxicam (MOBIC) 15 mg tablet Take 1 tablet (15 mg total) by mouth in the morning. 30 tablet 1 09/29/2023 11/24/2023 Discontinued (Alternate therapy) 2 ml midazolam 1 mg/ml cartridge (1 source) Benzodiazepine Start: 05-15-2024 End: 05-16-2024 2 mg, intravenous, As needed, anxiety, Starting on Tue05/15/24 at 1519, Pre-op, May repeat in 10 minutes, if needed, if original midazolam (VERSED) ineffective, Indication: Other, Indication: anxiety 1 ml morphine sulfate 4 mg/ml injection (1 source) Opioid Agonist Start: 05-15-2024 End: 05-16-2024 take 2 mg intravenously every two hours as needed Naloxone (1 source) Opioid Antagonist Start: 05-15-2024 End: 05-16-2024 0.1 mg, intravenous, As needed, respiratory depression, Starting on Tue05/15/24 at 1753, For 4 doses, PACU (only), Maximum dose: 0.4 mg Look-alike/sound-alike medication - verify indication for use. naloxone (NARCAN) 4 mg/actuation spray,non-aeroso l nasal spray (6 sources) Start: 05-16-2024 End: 10-08-2024 naloxone (NARCAN) 4 mg/actuation spray,non-aerosol nasal spray Administer 1 spray (4 mg total) into alternating nostrils as needed for opioid reversal. 2 each 05/16/2024 10/08/2024 Discontinued Start: 05-16-2024 naloxone (NARC AN) 4 mg/actuation spray,non-aerosol nasal spray Administer 1 spray (4 mg total) into alternating nostrils as needed for opioid reversal. 2 each 05/16/2024 Active Start: 05-16-2024 naloxone (NARC AN) 4 mg/actuation spray,non-aerosol nasal spray Administer 1 spray (4 mg total) into alternating nostrils as needed for opioid reversal. 2 each 05/16/2024 Start: 05-16-2024 End: 05-16-2024 naloxone (NARCAN) 4 mg/actua tion spray,non-aerosol nasal spray Administer 1 spray (4 mg total) into alternating nostrils as needed for opioid reversal. 2 each 05/16/2024 05/16/2024 Discontinued NON FORMULARY (8 sources) End: 11-24-2023 NON FORMULARY Magnesium 05/0 08/2023 Discontinued (Alternate therapy) NON FORMULARY Ma gnesium Active NON FORMULARY Ma gnesium 0 Active 2 ml ondansetron 2 mg/ml injection (10 sources) Serotonin-3 Receptor Antagonist Start: 05-15-2024 End: 05-16-2024 take 4 mg intravenously every six hours as needed for nausea and vomiting 4 mg, intravenous, Every 6 hours PRN, nausea, vomiting, Starting on Tue05/15/24 at 2042, Administer over 2-5 minutes. Start: 05-15-2024 End: 05-16-2024 4 mg, intravenous, Once as n eeded, nausea, Starting on Tue05/15/24 at 1753, For 1 dose, PACU (only), Administer over 2-5 minutes. Start: 11-15-2022 End: 11-24-2023 take 1 tablet by mouth every eight hours as needed for nausea and vomiting ondansetron ODT (ZOFRAN ODT) 4 mg disintegrating tablet Dissolve 1 tablet (4 mg total) on tongue every 8 (eight) hours as needed for nausea or vomiting. 20 tablet 11/15/2022 11/24/2023 Discontinued (Alternate therapy) polyethylene glycol 3350 95009 mg powder for oral solution (6 sources) Osmotic Laxative Start: 05-16-2024 End: 10-08-2024 polyethylene glycol (GLYCOLAX) 17 gram packet Take 17 g by mouth in the morning. 30 packet 05/16/2024 10/08/2024 Discontinued 125 ml sodium chloride 9 mg/ml prefilled syringe (4 sources) Start: 05-15-2024 End: 05-16-2024 take 1 dose by mouth once 3 mL, intravenous, Every 12 hours scheduled, First dose on Tue05/15/24 at 2100, Once tolerating oral intake Start: 05-15-2024 End: 05-16-2024 3 mL, intravenous, Every 12 hours scheduled, First dose on Tue05/15/24 at 2100, Pre-op Start: 05-15-2024 End: 05-16-2024 Turmeric extract (8 sources) End: 11-24-2023 take 3 tablets by mouth once daily TURMERIC ORAL Take by mouth. 3 tabs once a day 11/24/2023 Discontinued (Alternate therapy) take 3 tablets by mouth once sree ly TURMERIC ORAL Take by mouth. 3 tabs once a day Active take 3 tablets by mouth once sree ly TURMERIC ORAL Take by mouth. 3 tabs once a day 0 Active vancomycin (VANCOCIN) IVPB 1750 mg in 500 mL sodium chloride 0.9% (CMPD premix) (1 source) Start: 05-15-2024 End: 05-15-2024 1,750 mg (rounded from 1,671 mg = 15 mg/kg 111.4 kg Order-specific weight), intravenous, at 268 mL/hr, Administer over 120 Minutes, Once, On Tue05/15/24 at 1530, For 1 dose, Pre-op, VESICANT (YELLOW), Indication: Surgical prophylaxis Problems Active Problems Problem Classification Problem Date Documented Da te Episodic/Chronic Diverticulosis and diverticulitis (20 sources) Diverticula of intestine; Translations: [Diverticulosis of intestine, part unspecified, without perforation or abscess without bleeding] Onset: 05-25-2016 01-09-2024 Chronic Genitourinary congenital anomalies (20 sources) Congenital hydronephrosis; Translations: [Congenital hydronephrosis] Onset: 07-07-2020 07-07-2020 Chronic Mood disorders (20 sources) Depressive disorder; Translations: [Depressive disorder] Onset: 05-25-2016 05-18-2022 Chronic Nutritional deficiencies (20 sources) Vitamin D deficiency, unspecified; Translations: [Vitamin D deficiency] Onset: 10-25-2018 Chronic Other gastrointestinal disorders (1 source) Constipation Onset: 01-07-2025 Episodic Other gastrointestinal disorders (2 sources) Bowel dysfunction; Translations: [Functional intestinal disorder, unspecified] 01-10-2025 Episodic Other inflammatory condition of skin (20 sources) Rosacea; Translations: [Rosacea, unspecified] Onset: 05-18-2022 05-18-2022 Chronic Other nervous system disorders (20 sources) Tarsal tunnel syndrome; Translations: [Tarsal tunnel syndrome, unspecified lower limb] Onset: 05-25-2016 05-18-2022 Chronic Other nervous system disorders (1 source) Thoracic outlet syndrome; Translations: [Brachial plexus disorders] 09-29-2023 Chronic Other nervous system disorders (1 source) Other chronic pain; Translations: [Other chronic pain] Onset: 12-09-2023 Chronic Other nutritional; endocrine; and metabolic disorders (20 sources) Morbid obesity; Translations: [Morbid (severe) obesity due to excess calories] Onset: 06-21-2022 06-21-2022 Chronic Other upper respiratory disease (20 sources) Allergic rhinitis; Translations: [Allergic rhinitis, unspecified] Onset: 05-25-2016 05-18-2022 Chronic Other upper respiratory disease (20 sources) Seasonal allergy; Translations: [Other seasonal allergic rhinitis] 09-06-2022 Chronic Residual codes; unclassified (3 sources) History of lumbar laminectomy; Translations: [Other specified postprocedural states] 06-25-2024 Episodic Spondylosis; intervertebral disc disorders; other back problems (20 sources) Other intervertebral disc displacement, lumbar region; Translations: [Lumbar spondylosis] Onset: 05-25-2016 05-18-2022 Chronic Spondylosis; intervertebral disc disorders; other back problems (20 sources) Spinal stenosis, lumbar region with neurogenic claudication; Translations: [Spinal stenosis, lumbar region without neurogenic claudication] Onset: 12-09-2023 11-28-2023 Episodic Unclassified (1 source) Low back pain, unspecified; Translations: [Low back pain, unspecified] Onset: 12-27-2023 Unclassified (1 source) Sinus Problem Onset: 05-08-2024 Unclassified (1 source) Earache Onset: 05-08-2024 Unclassified (1 source) Annual Exam Onset: 03-08-2024 Unclassified (1 source) POST-OP VISIT Onset: 02-14-2024 Past or Other Problems Problem Classification Problem Date Documented Date Episodic/Chronic Abdominal pain (4 sources) Left lower quadrant pain; Translations: [Left lower quadrant pain] Onset: 02-14-2024 11-18-2023 Episodic Allergic reactions (20 sources) Dermatographic urticaria; Translations: [Dermatographic urticaria] Onset: 06-21-2022 06-21-2022 Episodic Chronic obstructive pulmonary disease and bronchiectasis (8 sources) Bronchitis, not specified as acute or chronic; Translations: [Bronchitis] Onset: 10-08-2024 Episodic Headache; including migraine (1 source) Headache Onset: 05-08-2024 Episodic Mood disorders (20 sources) Mood disorders Onset: 11-09-2023 Resolved: 01-07-2025 11-09-2023 Other and unspecified benign neoplasm (20 sources) History of polyp of colon; Translations: [Personal history of colonic polyps] Onset: 11-15-2022 11-15-2022 Episodic Other connective tissue disease (4 sources) Enthesopathy, unspecified; Translations: [ENTHESOPATHY UNSPECIFIED] Onset: 02-02-2022 Episodic Other lower respiratory disease (1 source) Cough Onset: 03-14-2024 Episodic Other nervous system disorders (2 sources) Postoperative pain ; Translations: [Other acute postprocedural pain] 02-25-2024 Episodic Other nervous system disorders (2 sources) Other acute postprocedural pain; Translations: [Other acute postprocedural pain] Onset: 02-14-2024 Episodic Other screening for suspected conditions (not mental disorders or infectious disease) (4 sources) Encounter for screening mammogram for malignant neoplasm of breast; Translations: [ENC SCR MAMMO MALIG NEOPLASM BREAST] Onset: 12-15-2021 Episodic Other skin disorders (20 sources) Acne; Translations: [Acne, unspecified] Onset: 05-25-2016 05-18-2022 Episodic Other upper respiratory disease (1 source) Pain in throat Onset: 03-14-2024 Episodic Other upper respiratory infections (4 sources) Acute pharyngitis, unspecified; Translations: [Acute sinusitis] Onset: 05-16-2021 Resolved: 05-16-2021 Episodic Residual codes; unclassified (3 sources) History of colectomy; Translations: [Acquired absence of other specified parts of digestive tract] 02-16-2024 Episodic Residual codes; unclassified (2 sources) Other specified postprocedural states; Translations: [Other specified postprocedural states] Onset: 06-25-2024 Episodic Unclassified (1 source) Acute cough R05.1 Unclassified (2 sources) History of lumbar laminectomy 06-25-2024 Unclassified (6 sources) Onset: 10-08-2024 Resolved: 01-08-2025 10-08-2024 Results Test Name Value Interpretation Reference Range Facility XR CHEST 2 VWSon 10-22-2024 XR CHEST 2 VWS XR CHEST 2 VWS Clinical history: Chest wall pain. Coughing. Comparisons: 04/12/2024. Findings: 2 views of the chest obtained. Heart size and pulmonary vasculature appear within normal limits. Lungs appear clear. No pleural effusion. No pneumothorax identified. IMPRESSION: No evidence for acute cardiopulmonary disease. Finalized by Todd Ingram MD on 10/22/2024 3:43 PM [facility] XR Chest PA and Lateralon Clinical history: Chest wall pain. Coughing. Comparisons: 04/12/2024. Findings: 2 views of the chest obtained. Heart size and pulmonary vasculature appear within normal limits. Lungs appear clear. No pleural effusion. No pneumothorax identified. IMPRESSION: No evidence for acute cardiopulmonary disease. Finalized by Todd Ingram MD on 10/22/2024 3:43 PM [facility] - 10/22/2024 Clinical history: Chest wall pain. Coughing. Comparisons: 04/12/2024. Findings: 2 views of the chest obtained. Heart size and pulmonary vasculature appear within normal limits. Lungs appear clear. No pleural effusion. No pneumothorax identified. IMPRESSION: No evidence for acute cardiopulmonary disease. Finalized by Todd Ingram MD on 10/22/2024 3:43 PM [facility] Radiology Study observation (narrative) [facility] XR Chest PA and LateralOrder ed By: Todd Ingram on 10-22-2024 [facility] Work Phone: ABO Rh Repeaton 05-15-2024 ABO A [facility] Rh Nom (Bld) Positive [facility] FL FLUOROSCOPY UP TO 1 HOURo n 05-15-2024 FL FLUOROSCOPY UP TO 1 HOUR FL FLUOROSCOPY UP TO 1 HOUR EXAM: FL FLUOROSCOPY UP TO 1 HOUR CLINICAL INFORMATION: L-SPINE L4-L5 LAMINECTOMY. COMPARISON: None. FINDINGS: Intraoperative fluoroscopy was provided to the ordering clinical service. The submitted images demonstrate surgical devices projecting dorsal to the lower lumbar spine. Reference Air Kerma: 6.08 mGy IMPRESSION: Intraoperative fluoroscopy was provided to the ordering clinical service, as above. Finalized by Brody Yao MD on 05/15/2024 6:14 PM Normal [facility] RF Less than 1 houron 2023 EXAM: FL FLUOROSCOPY UP TO 1 HOUR CLINICAL INFORMATION: L-SPINE L4-L5 LAMINECTOMY. COMPARISON: None. FINDINGS: Intraoperative fluoroscopy was provided to the ordering clinical service. The submitted images demonstrate surgical devices projecting dorsal to the lower lumbar spine. Reference Air Kerma: 6.08 mGy IMPRESSION: Intraoperative fluoroscopy was provided to the ordering clinical service, as above. Finalized by Brody Yao MD on 05/15/2024 6:14 PM [facility] Brody Yao MD - 05/15/2024 EXAM: FL FLUOROSCOPY UP TO 1 HOUR CLINICAL INFORMATION: L-SPINE L4-L5 LAMINECTOMY. COMPARISON: None. FINDINGS: Intraoperative fluoroscopy was provided to the ordering clinical service. The submitted images demonstrate surgical devices projecting dorsal to the lower lumbar spine. Reference Air Kerma: 6.08 mGy IMPRESSION: Intraoperative fluoroscopy was provided to the ordering clinical service, as above. Finalized by Brody Yao MD on 05/15/2024 6:14 PM [facility] Radiology Study observation (narrative) [facility] RF Less than 1 hourOrdered B y: Brody Yao on 05-15-2024 [facility] Work Phone: Surgical Pathologyon 024 Surgical Pathology Normal [facility] Comment on above: Result Comment: [facility] [address] [place] [address] Surgical Pathology Consultation Patient Name:MAR ADAME:1965 (Age: 59)Gender:FTaken:05/15/2024eported:05/22/2024hysician(s):Brian Girard MD ( )Copy To: Rec. #:[id number]: #[id number] Final Pathologic Diagnosis Lumbar 4,5 disc: Gross pathologic evaluation performed Report Electronically Signed Out nsk/05/22/2024Olinda Yang MD Interpretation performed at [facility], [address] [place] [address], License number: [id number]. Clinical History Lumbar radiculopathy, lumbar herniated disc. Gross Description Received in formalin labeled WENDI lumbar disc 4, 5 are multiple fragments of cadena-vargas fibroelastic tissue admixed with vargas-yellow soft tissue and vargas-cadena bony material, 4.0 x 2.5 x 1.0 cm in aggregate. No sections are submitted for processing. (GROSS ONLY) JKH jkh/05/16/2024NSK Specimen(s) Received Lumbar 4,5 disc Fee Codes(s): 1; 19439 Bacteria identified Cx Nom ( U)on 05-04-2024 Service comment (Unsp spec) [Interp] 50-100,000 ORGANISMS/ML NORMAL UROGENITAL SALO [facility] ABO Rh Repeaton 05-03-2024 ABO A [facility] Rh Nom (Bld) Positive [facility] APTTon 05-03-2024 aPTT Coag (PPP) [Time] 32 s [facility] BASIC METABOLIC PANLon 05-03 Anion gap [Moles/Vol] 10 mmol/L Normal 5-15 [facility] Comment on above: Performed By: #### C BCA, BMP, 39773-5, PINR #### [facility] ([id number]) [address], [address] [place] [address] Calcium [Mass/Vol] 9.4 mg/dL Normal 8.5-10.5 [facility] Comment on above: Performed By: #### C BCA, BMP, 84202-3, PINR #### [facility] ([id number]) [address], [address] [place] [address] Chloride [Moles/Vol] 102 mmol/L Normal 98-109 [facility] Comment on above: Performed By: #### C BCA, BMP, 72277-0, PINR #### [facility] ([id number]) [address], [address] [place] [address] CO2 [Moles/Vol] 27 mmol/L Normal 22-32 [facility] Comment on above: Performed By: #### C BCA, BMP, 28856-2, PINR #### [facility] ([id number]) [address], [address] [place] [address] Creatinine [Mass/Vol] 0.78 mg/dL Normal 0.40-1.00 [facility] Comment on above: Result Comment: METH OD TRACEABLE TO IDMS STANDARD Performed By: #### C BCA, BMP, 26037-7, PINR #### [facility] ([id number]) [address], [address] [place] [address] GFR/1.73 sq M.predicted among non-blacks MDRD (S/P/Bld) [Vol rate/Area] 87 mL/min/{1.73_m2} Normal >59 [facility] Comment on above: Result Comment: Reported eGFR is based on the CKD-EPI 2020 equation that does not use a race coefficient. Performed By: #### C BCA, BMP, 92163-1, PINR #### [facility] ([id number]) [address], [address] [place] [address] Glucose [Mass/Vol] 130 mg/dL High 65-99 [facility] Comment on above: Performed By: #### C BCA, BMP, 00738-4, PINR #### [facility] ([id number]) [address], [facility] [address] [place] [address] Potassium [Moles/Vol] 4.4 mmol/L Normal 3.5-5.0 [facility] Comment on above: Performed By: #### C BCA, BMP, 51998-0, PINR #### [facility] ([id number]) [address], [facility] [address] [place] [address] Sodium [Moles/Vol] 139 mmol/L Normal 134-146 [facility] Comment on above: Performed By: #### C BCA, BMP, 72641-0, PINR #### [facility] ([id number]) [address], [address] [place] [address] Urea nitrogen [Mass/Vol] 13 mg/dL Normal 5-23 [facility] Comment on above: Performed By: #### C BCA, BMP, 83220-7, PINR #### [facility] ([id number]) [address], [address] [place] [address] Basic Metabolic Panelon 10-1 0-2023 Anion gap [Moles/Vol] 10 mmol/L 5 - 15 mmol/L [facility] Calcium [Mass/Vol] 9.4 mg/dL 8.5 - 10. 5 mg/dL [facility] Chloride [Moles/Vol] 102 mmol/L 98 - 109 mmol/L [facility] CO2 [Moles/Vol] 27 mmol/L 22 - 32 mmol/L [facility] Creatinine [Mass/Vol] 0.78 mg/dL 0.40 - 1.00 mg/dL [facility] Comment on above: METHOD TRACEABLE TO IDMI STANDARD eGFR (CKD-EPI)non-race dependent 87 - PINF [facility] Comment on above: Reported eGFR is based on the CKD-EPI 2020 equation that does not use a race coefficient. Glucose [Mass/Vol] 130 mg/dL High 65 - 99 mg/dL [facility] Interpretation and review of laboratory results Abnormal [facility] Potassium [Moles/Vol] 4.4 mmol/L 3.5 - 5.0 mmol/L [facility] Sodium [Moles/Vol] 139 mmol/L 134 - 146 mmol/L [facility] Urea nitrogen [Mass/Vol] 13 mg/dL 5 - 23 mg/dL [facility] CBC AND AUTO DIFFon 05-03-20 24 ABSOLUTE BASOPHIL 0.0 X10E9/L Normal 0.0-0.2 [facility] Comment on above: Performed By: #### C BCA, BMP, 59676-2, PINR #### [facility] ([id number]) [address], [address] [place] [address] ABSOLUTE NEUTROPHIL 3.0 X10E9/L Normal 1.5-6.6 [facility] Comment on above: Performed By: #### C BCA, BMP, 28994-4, PINR #### [facility] ([id number]) [address], [address] [place] [address] Basophils/100 WBC (Bld) 0.5 % Normal [facility] Comment on above: Performed By: #### C BCA, BMP, 92263-7, PINR #### [facility] ([id number]) [address], [address] [place] [address] Eosinophils (Bld) [#/Vol] 0.4 10*3/uL Normal 0.0-0.4 [facility] Comment on above: Performed By: #### C BCA, BMP, 46262-1, PINR #### [facility] ([id number]) [address], [address] [place] [address] Eosinophils/100 WBC (Bld) 6.4 % Normal [facility] Comment on above: Performed By: #### C BCA, BMP, 51074-0, PINR #### [facility] ([id number]) [address], [address] [place] [address] Erythrocyte distribution width (RBC) [Ratio] 13.0 % Normal 11.5-15.0 [facility] Comment on above: Performed By: #### C BCA, BMP, 29331-6, PINR #### [facility] ([id number]) [address], [address] [place] [address] Hematocrit (Bld) [Volume fraction] 40.5 % Normal 35-47 [facility] Comment on above: Performed By: #### C BCA, BMP, 48293-2, PINR #### [facility] ([id number]) [address], [address] [place] [address] Hemoglobin (Bld) [Mass/Vol] 13.9 g/dL Normal 11.7-15.5 [facility] Comment on above: Performed By: #### C BCA, BMP, 66887-6, PINR #### [facility] ([id number]) [address], [address] [place] [address] Lymphocytes (Bld) [#/Vol] 2.2 10*3/uL Normal 1.0-3.5 [facility] Comment on above: Performed By: #### C BCA, BMP, 91269-7, PINR #### [facility] ([id number]) [address], [address] [place] [address] Lymphocytes/100 WBC (Bld) 36.4 % Normal [facility] Comment on above: Performed By: #### C BCA, BMP, 94682-2, PINR #### [facility] ([id number]) [address], [address] [place] [address] MCH (RBC) [Entitic mass] 33.6 pg Normal 27-34 [facility] Comment on above: Performed By: #### C BCA, BMP, 63455-8, PINR #### [facility] ([id number]) [address], [facility] [address] [place] [address] MCHC (RBC) [Mass/Vol] 34.2 g/dL Normal 32-36 [facility] Comment on above: Performed By: #### C BCA, BMP, 27082-9, PINR #### [facility] ([id number]) [address] [address] [place] [address] MCV (RBC) [Entitic vol] 98 fL Normal 80-100 [facility] Comment on above: Performed By: #### C BCA, BMP, 95037-8, PINR #### [facility] ([id number]) [address], [facility] [address] [place] [address] Monocytes (Bld) [#/Vol] 0.5 10*3/uL Normal 0-0.9 [facility] Comment on above: Performed By: #### C BCA, BMP, 22309-6, PINR #### [facility] ([id number]) [address], [facility] [address] [place] [address] Monocytes/100 WBC (Bld) 8.2 % Normal [facility] Comment on above: Performed By: #### C BCA, BMP, 11797-8, PINR #### [facility] ([id number]) [address] [address] [place] [address] Neutrophils/100 WBC (Bld) 48.5 % Normal [facility] Comment on above: Performed By: #### C BCA, BMP, 98534-7, PINR #### [facility] ([id number]) [address], [address] [place] [address] Platelet mean volume (Bld) [Entitic vol] 8.3 fL Normal 7-12 [facility] Comment on above: Performed By: #### C DEANGELO HERNANDEZ, 43814-1, PINR #### [facility] ([id number]) [address] [address] Platelets (Bld) [#/Vol] 327 10*3/uL Normal 150-450 [facility] Comment on above: Performed By: #### C DAVID, DEANGELO, 00164-8, PINR #### [facility] ([id number]) [address], [address] [address] RBC COUNT 4.13 X10E12/L Normal 3.80-5.20 [facility] Comment on above: Performed By: #### Juanis HERNANDEZ, DEANGELO, 08243-1, PINR #### [facility] ([id number]) [address], [address] [address] WBC (Bld) [#/Vol] 6.1 10*3/uL Normal 4.0-11.0 [facility] Comment on above: Performed By: #### Juanis HERNANDEZ, BMP, 79647-6, PINR #### [facility] ([id number]) [address] [address] CBC auto differentialon 04-24 Basophils (Bld) [#/Vol] 0.0 10*3/uL [facility] Basophils/100 WBC (Bld) 0.5 % [facility] Eosinophils (Bld) [#/Vol] 0.4 10*3/uL [facility] Eosinophils/100 WBC (Bld) 6.4 % [facility] Erythrocyte distribution width (RBC) [Ratio] 13.0 % 11.5 - 15.0 % [facility] Hematocrit (Bld) [Volume fraction] 40.5 % 35 - 47 % [facility] Hemoglobin (Bld) [Mass/Vol] 13.9 g/dL 11.7 - 15.5 g/dL [facility] Lymphocytes (Bld) [#/Vol] 2.2 10*3/uL [facility] Lymphocytes/100 WBC (Bld) 36.4 % [facility] MCH (RBC) [Entitic mass] 33.6 pg 27 - 34 pg [facility] MCHC (RBC) [Mass/Vol] 34.2 g/dL 32 - 36 g/dL [facility] MCV (RBC) [Entitic vol] 98 fL 80 - 100 fL [facility] Monocytes (Bld) [#/Vol] 0.5 10*3/uL [facility] Monocytes/100 WBC (Bld) 8.2 % [facility] Neutrophils (Bld) [#/Vol] 3.0 10*3/uL [facility] Neutrophils/100 WBC (Bld) 48.5 % [facility] Platelet mean volume (Bld) [Entitic vol] 8.3 fL 7 - 12 fL [facility] Platelets (Bld) [#/Vol] 327 10*3/uL [facility] RBC (Bld) [#/Vol] 4.13 10*6/uL [facility] WBC corrected for nucl RBC Auto (Bld) [#/Vol] 6.1 [facility] No Panel Informationon 05-03 [facility] PROTIME AND INRon 05-03-2024 INR Coag (PPP) [Relative time] 1.0 {INR} Normal 0.8-1.1 [facility] Comment on above: Performed By: #### C DAVID, BMP, 12205-0, PINR #### [facility] ([id number]) [address], [address] [place] [address] PT Coag (PPP) [Time] 11.4 s Normal 9.8-13.2 [facility] Comment on above: Performed By: #### C DAVID, BMP, 97640-0, PINR #### [facility] ([id number]) [address], [address] [place] [address] Protime & INRon 05-03-2024 INR Coag (PPP) [Relative time] 1.0 {INR} [facility] PT Coag (PPP) [Time] 11.4 s [facility] Type and screenon 05-03-2024 ABO A [facility] Rh Nom (Bld) Positive [facility] URINALYSISon 05-03-2024 Bilirubin Ql (U) Negative Normal NEG [facility] Comment on above: Performed By: #### U A #### [facility] ([id number]) [address], [address] [place] [address] BLOOD/HGB Negative Normal NEG [facility] Comment on above: Performed By: #### U A #### [facility] ([id number]) [address], [address] [place] [address] Color (U) YELLOW Normal YELLOW [facility] Comment on above: Performed By: #### U A #### [facility] ([id number]) [address], [address] [place] [address] Glucose Ql (U) Negative Normal NEG [facility] Comment on above: Performed By: #### U A #### [facility] ([id number]) [address], [address] [place] [address] Ketones Ql (U) Negative Normal NEG [facility] Comment on above: Performed By: #### U A #### [facility] ([id number]) [address], [address] [place] [address] Leukocyte esterase Test strip Ql (U) Small Abnormal NEG [facility] Comment on above: Performed By: #### U A #### [facility] ([id number]) [address], [address] [place] [address] MUCOUS PRESENT Abnormal NONE [facility] Comment on above: Performed By: #### U A #### [facility] ([id number]) [address], [address] [place] [address] Nitrite Ql (U) Negative Normal NEG [facility] Comment on above: Performed By: #### U A #### [facility] ([id number]) [address], [address] [place] [address] pH (U) 5.5 [pH] Normal 5.0-8.5 [facility] Comment on above: Performed By: #### U A #### [facility] ([id number]) [address], [address] [place] [address] Protein Ql (U) Trace Abnormal NEG [facility] Comment on above: Performed By: #### U A #### [facility] ([id number]) [address], [address] [place] [address] R.B.CELLS 1 /hpf Normal 0-5 [facility] Comment on above: Performed By: #### U A #### [facility] ([id number]) [address], [address] [place] [address] Specific gravity (U) [Rel density] 1.031 Normal 1.003-1.035 [facility] Comment on above: Performed By: #### U A #### [facility] ([id number]) [address], [address] [place] [address] SQUAMOUS EPITHELIUM 1 /hpf Normal 0-5 [facility] Comment on above: Performed By: #### U A #### [facility] ([id number]) [address], [address] [place] [address] TURBIDITY CLEAR Normal CLEAR [facility] Comment on above: Performed By: #### U A #### [facility] ([id number]) [address], [address] [place] [address] Urobilinogen (U) [Mass/Vol] mg/dL Normal <1.1 [facility] Comment on above: Performed By: #### U A #### [facility] ([id number]) [address], [address] [place] [address] W.B.CELLS 6 /hpf High 0-5 [facility] Comment on above: Performed By: #### U A #### [facility] ([id number]) [address], [address] [place] [address] URINE CULTUREon 05-03-2024 Bacteria identified Cx Nom (U) CULTURE RESULTS 50-100,000 ORGANISMS/ML NORMAL UROGENITAL SALO Normal [facility] Comment on above: Performed By: #### 6 30-4 #### [facility] ([id number]) [address], [address] [place] [address] Urinalysison 05-03-2024 Bilirubin Ql (U) Negative Negative^Ne ga tive [facility] Color (U) YELLOW YELLOW^YELLOW [facility] Epithelial cells Auto (Urine sed) [#/Area] 1 [facility] Glucose (U) [Mass/Vol] Negative Negative^Nega tive mg/dL [facility] Hemoglobin Auto test strip Ql (U) Negative Negative^Nega tive [facility] Interpretation and review of laboratory results Abnormal [facility] Ketones (U) [Mass/Vol] Negative Negative^Nega tive mg/dL [facility] Leukocyte esterase Auto test strip Ql (U) Small Abnormal Negative^Nega tive [facility] Mucus Ql (Urine sed) PRESENT Abnormal NONE^NONE [facility] Nitrite Auto test strip Ql (U) Negative Negative^Nega tive [facility] pH (U) 5.5 [pH] 5.0 - 8.5 [facility] Protein (U) [Mass/Vol] Trace Abnormal Negative^Nega tive mg/dL [facility] RBC Auto (Urine sed) [#/Area] 1 [facility] Specific gravity Refractometry automated (U) [Rel density] 1.031 1.003 - 1.035 [facility] Turbidity Ql (U) CLEAR CLEAR^CLEAR [facility] Urobilinogen Qn (U) NINF [facility] WBC Auto (Urine sed) [#/Area] 6 High [facility] aPTT Coag (PPP) [Time]on aPTT Coag (Bld) [Time] 32 s Normal 26-37 [facility] Comment on above: Performed By: #### C BCA, BMP, 70460-3, PINR #### [facility] ([id number]) [address] [place] [address] XR Chest PA and Lateralon Todd Ingram M D - 04/12/2024 Clinical history: Preoperative evaluation. Comparisons: None Findings: 2 views of the chest obtained. Heart size and pulmonary vasculature appear within normal limits. Lungs appear clear. There is no pleural effusion nor pneumothorax. IMPRESSION: No evidence for acute cardiopulmonary disease. Finalized by Todd Ingram MD on 04/12/2024 3:19 PM [facility] Radiology Study observation (narrative) [facility] XR Chest PA and LateralOrder ed By: Todd Ingram on 04-12-2024 [facility] Work Phone: CT LUMBAR SPINE WO CONTon CT LUMBAR SPINE WO CONT CT LUMBAR SPINE WO CONT CT LUMBAR SPINE WO CONT 04/06/2024 7:43 PM INDICATION: Low back pain, spondyloarthropathy suspected, xray done COMPARISON: MR lumbar spine 12/09/2023 TECHNIQUE: Noncontrast CT images of the lumbar spine were obtained. All CT scans at this facility use dose modulation, iterative reconstruction, and/or weight based dosing when appropriate to reduce radiation dose to as low as reasonably achievable. FINDINGS: There are 5 lumbar-type nonrib-bearing vertebrae. Vertebral body heights are well-maintained. Vertebral body and facet alignment is appropriate. There is minimal degenerative disc disease. There is mild facet degeneration. There is multilevel mild neuroforaminal narrowing, with more moderate neuroforaminal narrowing within the lower lumbar spine, particularly at L5-S1 on the right. There are multiple mild disc bulges. At L4-L5 there is a mild disc bulge with moderate-sized likely disc protrusion, slightly eccentric to the right. There is associated increased moderate spinal canal stenosis. Disc protrusion questionably progressed from prior MRI. IMPRESSION: Degenerative changes lumbar spine most prominent L4-L5 where there is moderate sized disc protrusion which has questionably progressed from prior MRI. Repeat MRI could be considered. Finalized by Darrel French DO on 04/06/2024 8:08 PM Normal [facility] CBC AND AUTO DIFFon 03-13-20 ABSOLUTE BASOPHIL 0.0 X10E9/L Normal 0.0-0.2 [facility] Comment on above: Performed By: #### C DAVID CMP, 56593-9, THYR, 81568-3 ####[facility] ([id number])[address] [place] [address] ABSOLUTE NEUTROPHIL 3.8 X10E9/L Normal 1.5-6.6 [facility] Comment on above: Performed By: #### C BCA, CMP, 10843-1, THYR, 24835-2 ####[facility] ([id number])[address] [address] Basophils/100 WBC (Bld) 0.5 % Normal [facility] Comment on above: Performed By: #### C BCA, CMP, 29696-6, THYR, 23302-0 ####[facility] ([id number])[address] [place] [address] Eosinophils (Bld) [#/Vol] 0.3 10*3/uL Normal 0.0-0.[address] [facility] Comment on above: Performed By: #### C BCA, CMP, 44596-5, THYR, 44598-5 ####[facility] ([id number])[address] [address] Eosinophils/100 WBC (Bld) 5.2 % Normal [facility] Comment on above: Performed By: #### C BCA, CMP, 78195-7, THYR, 49034-6 ####[facility] ([id number])[address] [address] Erythrocyte distribution width (RBC) [Ratio] 14.3 % Normal 11.5-15.[address] [facility] Comment on above: Performed By: #### C BCA, CMP, 94749-2, THYR, 14063-9 ####[facility] ([id number])[address] [address] Hematocrit (Bld) [Volume fraction] 38.8 % Normal 35-[address] [facility] Comment on above: Performed By: #### Juanis BCA, CMP, 77262-8, THYR, 12024-5 ####[facility] ([id number])[address] [address] Hemoglobin (Bld) [Mass/Vol] 13.1 g/dL Normal 11.7-15.[address] [facility] Comment on above: Performed By: #### C BCA, CMP, 30093-9, THYR, 70516-7 ####[facility] ([id number])[address] [address] Lymphocytes (Bld) [#/Vol] 1.7 10*3/uL Normal 1.0-3.[address] [facility] Comment on above: Performed By: #### C BCA, CMP, 04441-8, THYR, 86902-8 ####[facility] ([id number])[address] [address] Lymphocytes/100 WBC (Bld) 26.8 % Normal [facility] Comment on above: Performed By: #### C BCA, CMP, 15077-2, THYR, 43590-9 ####[facility] ([id number])[address], [address] [place] [address] MCH (RBC) [Entitic mass] 33.5 pg Normal 27-[address] [facility] Comment on above: Performed By: #### C BCA, CMP, 37829-1, THYR, 48407-9 ####[facility] ([id number])[address], [address] [place] [address] MCHC (RBC) [Mass/Vol] 33.8 g/dL Normal 32-[address] [facility] Comment on above: Performed By: #### C BCA, CMP, 76797-6, THYR, 06150-3 ####[facility] ([id number])[address] [place] [address] MCV (RBC) [Entitic vol] 99 fL Normal 80-[address] [facility] Comment on above: Performed By: #### C BCA, CMP, 65962-3, THYR, 40618-1 ####[facility] ([id number])[address], [place] [address] Monocytes (Bld) [#/Vol] 0.5 10*3/uL Normal 0-0.[address] [facility] Comment on above: Performed By: #### C BCA, CMP, 38665-9, THYR, 42924-3 ####[facility] ([id number])[address], [place] [address] Monocytes/100 WBC (Bld) 7.7 % Normal [facility] Comment on above: Performed By: #### C BCA, CMP, 36101-7, THYR, 58190-2 ####[facility] ([id number])[address] [place] [address] Neutrophils/100 WBC (Bld) 59.8 % Normal [facility] Comment on above: Performed By: #### C BCA, CMP, 92082-6, THYR, 88128-1 ####[facility] ([id number])[address], [place] [address] Platelet mean volume (Bld) [Entitic vol] 8.3 fL Normal 7-[address] [facility] Comment on above: Performed By: #### C BCA, CMP, 77369-1, THYR, 60276-4 ####[facility] ([id number])[address] [place] [address] Platelets (Bld) [#/Vol] 367 10*3/uL Normal 150-[address] [facility] Comment on above: Performed By: #### C BCA, CMP, 88615-1, THYR, 40531-3 ####[facility] ([id number])[address] [address], [place] [address] RBC COUNT 3.92 X10E12/L Normal 3.80-5.[address] [facility] Comment on above: Performed By: #### C BCA, CMP, 02719-3, THYR, 94133-8 ####[facility] ([id number])[address] [address] WBC (Bld) [#/Vol] 6.3 10*3/uL Normal 4.0-11.0 [facility] Comment on above: Performed By: #### C BCA, CMP, 98587-3, THYR, 62867-6 ####[facility] ([id number])[address], [place] [address] COMPREHENSIVE METABOLIC PANE Lionel 03-13-2024 Albumin [Mass/Vol] 4.4 g/dL Normal 3.2-5.3 [facility] Comment on above: Performed By: #### C BCA, CMP, 51843-8, THYR, 15493-2 ####[facility] ([id number])[address], [place] [address] ALP [Catalytic activity/Vol] 67 U/L Normal 39-[address] [facility] Comment on above: Performed By: #### C BCA, CMP, 28601-3, THYR, 21232-7 ####[facility] ([id number])[address], [place] [address] ALT [Catalytic activity/Vol] 18 U/L Normal 0-[address] [facility] Comment on above: Performed By: #### C BCA, CMP, 14623-5, THYR, 47980-9 ####[facility] ([id number])[address], [place] [address] Anion gap [Moles/Vol] 11 mmol/L Normal 5-[address] [facility] Comment on above: Performed By: #### C BCA, CMP, 15228-6, THYR, 19050-7 ####[facility] ([id number])[address], [place] [address] AST [Catalytic activity/Vol] 16 U/L Normal 0-[address] [facility] Comment on above: Performed By: #### C BCA, CMP, 26302-1, THYR, 37543-5 ####[facility] ([id number])[address], [place] [address] Bilirubin [Mass/Vol] 0.6 mg/dL Normal 0.3-1.[address] [facility] Comment on above: Performed By: #### C BCA, CMP, 59853-9, THYR, 39990-7 ####[facility] ([id number])[address], [place] [address] Calcium [Mass/Vol] 9.7 mg/dL Normal 8.5-10.5 [facility] Comment on above: Performed By: #### C BCA, CMP, 63321-2, THYR, 91997-4 ####[facility] ([id number])[address], [place] [address] Chloride [Moles/Vol] 102 mmol/L Normal 98-[address] [facility] Comment on above: Performed By: #### C BCA, CMP, 63353-4, THYR, 63998-4 ####[facility] ([id number])[address], [place] [address] CO2 [Moles/Vol] 26 mmol/L Normal 22-[address] [facility] Comment on above: Performed By: #### C BCA, CMP, 73675-9, THYR, 45607-7 ####[facility] ([id number])[address], [place] [address] Creatinine [Mass/Vol] 0.81 mg/dL Normal 0.40-1.[address] [facility] Comment on above: Result Comment: METH OD TRACEABLE TO IDMS STANDARD Performed By: #### C BCA, CMP, 06804-6, THYR, 93301-6 ####[facility] ([id number])[address] [place] [address] GFR/1.73 sq M.predicted among non-blacks MDRD (S/P/Bld) [Vol rate/Area] 84 mL/min/{1.73_m2} Normal >[address] [facility] Comment on above: Result Comment: Reported eGFR is based on the CKD-EPI 2020 equation that does not use a race coefficient. Performed By: #### C BCA, CMP, 16751-6, THYR, 01345-6 ####[facility] ([id number])[address] [address] Glucose [Mass/Vol] 119 mg/dL High 65-99 [facility] Comment on above: Performed By: #### C BCA, CMP, 89892-9, THYR, 11338-3 ####[facility] ([id number])[address], [place] [address] Potassium [Moles/Vol] 4.2 mmol/L Normal 3.5-5.[address] [facility] Comment on above: Performed By: #### C BCA, CMP, 44950-3, THYR, 83969-2 ####[facility] ([id number])[address], [place] [address] Protein [Mass/Vol] 7.4 g/dL Normal 6.0-8.0 [facility] Comment on above: Performed By: #### C BCA, CMP, 15579-7, THYR, 13726-1 ####[facility] ([id number])[address], [place] [address] Sodium [Moles/Vol] 139 mmol/L Normal 134-146 [facility] Comment on above: Performed By: #### C BCA, CMP, 73545-8, THYR, 35253-0 ####[facility] ([id number])[address] [place] [address] Urea nitrogen [Mass/Vol] 15 mg/dL Normal 5-[address] [facility] Comment on above: Performed By: #### C BCA, CMP, 82504-0, THYR, 98136-5 ####[facility] ([id number])[address] [place] [address] Lipid 1996 panelon 4 Cholesterol [Mass/Vol] 157 mg/dL Normal 150-[address] [facility] Comment on above: Performed By: #### C BCA, CMP, 49728-5, THYR, 55562-5 ####[facility] ([id number])[address] [place] [address] Cholesterol in HDL [Mass/Vol] 54 mg/dL Normal >[address] [facility] Comment on above: Result Comment: HDL <40 mg/dL - High Risk HDL > or = 40mg/dL- Desirable HDL >60 mg/dL - Negative Risk Performed By: #### C BCA, CMP, 45366-4, THYR, 12892-6 ####[facility] ([id number])[address], [address], [place] [address] Cholesterol in LDL [Mass/Vol] 87 mg/dL Normal <[address] [facility] Comment on above: Result Comment: LDL <100 mg/dL - Desirable LDL >160 mg/dL - High Risk Performed By: #### C BCA, CMP, 37073-2, THYR, 54573-7 ####[facility] ([id number])[address], [address] [place] [address] Cholesterol in VLDL [Mass/Vol] 16 mg/dL Normal 0-[address] [facility] Comment on above: Performed By: #### Juanis BCA, CMP, 94873-1, THYR, 88091-7 ####[facility] ([id number])[address] [address], [place] [address] CHOLESTEROL:HDL 2.9 Normal 1.0-5.[address] [facility] Comment on above: Performed By: #### Juanis BCA, CMP, 74772-4, THYR, 22281-9 ####[facility] ([id number])[address] [address] [address] Triglyceride [Mass/Vol] 78 mg/dL Normal 27-[address] [facility] Comment on above: Performed By: #### Juanis BCA, CMP, 13270-2, THYR, 12187-1 ####[facility] ([id number])[address], [address], [place] [address] THYROID PROFILEon 03-13-2024 Free T4 [Mass/Vol] 0.84 ng/dL Normal 0.61-1.60 [facility] Comment on above: Performed By: #### C JAGDISH HERNANDEZ, 36744-5, THYR, 30599-6 ####[facility] ([id number])[address], [address], [place] [address] TSH 1.26 uIU/mL Normal 0.49-4.[address] [facility] Comment on above: Performed By: #### C JAGDISH HERNANDEZ, 69426-4, THYR, 05638-4 ####[facility] ([id number])[address], [address], [place] [address] Vitamin D+Metabolites [Mass/ Vol]on 03-13-2024 VITAMIN D 25 HYD TOT 31.7 ng/mL Normal 30-[address] [facility] Comment on above: Result Comment: Vitamin D status 25 [place] Vitamin D Deficiency <20 ng/mL Insufficiency 20-29 ng/mL Sufficiency 30-100 ng/mL Toxicity >100 ng/mL NOTE: A pediatric reference range has not been established by the secondary school registrar of this kit. The [place] [employer] recommends a Vitamin D level of = or >20ng/mL in infants and children. Performed By: #### Juanis HERNANDEZ CMP, 28016-6, THYR, 97209-9 ####[facility] ([id number])[address], [place] [address] BASIC METABOLIC PANLon 02-14 Anion gap [Moles/Vol] 11 mmol/L Normal 5-[address] [facility] Comment on above: Performed By: #### Juanis HERNANDEZ, BMP ####[facility] ([id number])[address], [place] [address] Calcium [Mass/Vol] 9.1 mg/dL Normal 8.5-10.5 [facility] Comment on above: Performed By: #### C DAVID, BMP ####[facility] ([id number])[address], [place] [address] Chloride [Moles/Vol] 106 mmol/L Normal 98-[address] [facility] Comment on above: Performed By: #### C DAVID, BMP ####[facility] ([id number])[address], [place] [address] CO2 [Moles/Vol] 23 mmol/L Normal 22-[address] [facility] Comment on above: Performed By: #### C DAVID, BMP ####[facility] ([id number])[address], [place] [address] Creatinine [Mass/Vol] 0.76 mg/dL Normal 0.40-1.[address] [facility] Comment on above: Result Comment: METH OD TRACEABLE TO IDMS STANDARD Performed By: #### C DAVID, BMP ####[facility] ([id number])[address] [address] [place] [address] eGFR (CKD-EPI) NON-RACE DEPENDENT >90 Normal >[address] [facility] Comment on above: Result Comment: Reported eGFR is based on the CKD-EPI 2020 equation that does not use a race coefficient. Performed By: #### C BCA, BMP ####[facility] ([id number])[address], [place] [address] Glucose [Mass/Vol] 118 mg/dL High 65-99 [facility] Comment on above: Performed By: #### C BCA, BMP ####[facility] ([id number])[address], [place] [address] Potassium [Moles/Vol] 4.0 mmol/L Normal 3.5-5.[address] [facility] Comment on above: Performed By: #### C BCA, BMP ####[facility] ([id number])[address], [address] [place] [address] Sodium [Moles/Vol] 140 mmol/L Normal 134-146 [facility] Comment on above: Performed By: #### C BCA, BMP ####[facility] ([id number])[address], [address] [place] [address] Urea nitrogen [Mass/Vol] 17 mg/dL Normal 5-[address] [facility] Comment on above: Performed By: #### C BCA, BMP ####[facility] ([id number])[address], [address] [address] Basic Metabolic Panelon 01-23 Anion gap [Moles/Vol] 11 mmol/L 5 - 15 mmol/L [facility] Calcium [Mass/Vol] 9.1 mg/dL 8.5 - 10. 5 mg/dL [facility] Chloride [Moles/Vol] 106 mmol/L 98 - 109 mmol/L [facility] CO2 [Moles/Vol] 23 mmol/L 22 - 32 mmol/L [facility] Creatinine [Mass/Vol] 0.76 mg/dL 0.40 - 1.00 mg/dL [facility] Comment on above: METHOD TRACEABLE TO IDMI STANDARD eGFR (CKD-EPI)non-race dependent - PINF [facility] Comment on above: Reported eGFR is based on the CKD-EPI 2020 equation that does not use a race coefficient. Glucose [Mass/Vol] 118 mg/dL High 65 - 99 mg/dL [facility] Interpretation and review of laboratory results Abnormal [facility] Potassium [Moles/Vol] 4.0 mmol/L 3.5 - 5.0 mmol/L [facility] Sodium [Moles/Vol] 140 mmol/L 134 - 146 mmol/L [facility] Urea nitrogen [Mass/Vol] 17 mg/dL 5 - 23 mg/dL [facility] CBC AND AUTO DIFFon 02-15-20 ABSOLUTE BASOPHIL 0.1 X10E9/L Normal 0.0-0.2 [facility] Comment on above: Performed By: #### C BCA, BMP ####[facility] ([id number])[address], [place] [address] ABSOLUTE NEUTROPHIL 3.2 X10E9/L Normal 1.5-6.6 [facility] Comment on above: Performed By: #### C BCA, BMP ####[facility] ([id number])[address], [place] [address] Basophils/100 WBC (Bld) 1.0 % Normal [facility] Comment on above: Performed By: #### C BCA, BMP ####[facility] ([id number])[address] [facility] [place] [address] Eosinophils (Bld) [#/Vol] 0.4 10*3/uL Normal 0.0-0.[address] [facility] Comment on above: Performed By: #### C BCA, BMP ####[facility] ([id number])[address], [place] [address] Eosinophils/100 WBC (Bld) 7.9 % Normal [facility] Comment on above: Performed By: #### C BCA, BMP ####[facility] ([id number])[address] [address], [place] [address] Erythrocyte distribution width (RBC) [Ratio] 13.8 % Normal 11.5-15.[address] [facility] Comment on above: Performed By: #### C BCA, BMP ####[facility] ([id number])[address] [address] [place] [address] Hematocrit (Bld) [Volume fraction] 38.3 % Normal 35-[address] [facility] Comment on above: Performed By: #### C BCA, BMP ####[facility] ([id number])[address] [address] [place] [address] Hemoglobin (Bld) [Mass/Vol] 13.1 g/dL Normal 11.7-15.[address] [facility] Comment on above: Performed By: #### Juanis HERNANDEZ, BMP ####[facility] ([id number])[address] [address] [place] [address] Lymphocytes (Bld) [#/Vol] 1.4 10*3/uL Normal 1.0-3.[address] [facility] Comment on above: Performed By: #### C DAVID, BMP ####[facility] ([id number])[address] [address] [place] [address] Lymphocytes/100 WBC (Bld) 25.7 % Normal [facility] Comment on above: Performed By: #### C DAVID, BMP ####[facility] ([id number])[address] [address] [place] [address] MCH (RBC) [Entitic mass] 33.6 pg Normal 27-[address] [facility] Comment on above: Performed By: #### C DAVID, BMP ####[facility] ([id number])[address] [address] [place] [address] MCHC (RBC) [Mass/Vol] 34.1 g/dL Normal 32-[address] [facility] Comment on above: Performed By: #### Juanis HERNANDEZ, BMP ####[facility] ([id number])[address] [address] [place] [address] MCV (RBC) [Entitic vol] 99 fL Normal 80-[address] [facility] Comment on above: Performed By: #### Juanis HERNANDEZ, BMP ####[facility] ([id number])[address] [address] [place] [address] Monocytes (Bld) [#/Vol] 0.4 10*3/uL Normal 0-0.[address] [facility] Comment on above: Performed By: #### Juanis HERNANDEZ, BMP ####[facility] ([id number])[address], [place] [address] Monocytes/100 WBC (Bld) 6.8 % Normal [facility] Comment on above: Performed By: #### C DAVID, BMP ####[facility] ([id number])[address], [place] [address] Neutrophils/100 WBC (Bld) 58.6 % Normal [facility] Comment on above: Performed By: #### C DAVID, BMP ####[facility] ([id number])[address] [address] [place] [address] Platelet mean volume (Bld) [Entitic vol] 8.6 fL Normal 7-[address] [facility] Comment on above: Performed By: #### C DAVID, BMP ####[facility] ([id number])[address] [address] Platelets (Bld) [#/Vol] 404 10*3/uL Normal 150-[address] [facility] Comment on above: Performed By: #### C DAVID, BMP ####[facility] ([id number])[address], [place] [address] RBC COUNT 3.88 X10E12/L Normal 3.80-5.[address] [facility] Comment on above: Performed By: #### C DAVID, BMP ####[facility] ([id number])[address] [address] WBC (Bld) [#/Vol] 5.6 10*3/uL Normal 4.0-11.0 [facility] Comment on above: Performed By: #### C DAVID, BMP ####[facility] ([id number])[address] [address] CBC auto differentialon 01-23 Basophils (Bld) [#/Vol] 0.1 10*3/uL [facility] Basophils/100 WBC (Bld) 1.0 % [facility] Eosinophils (Bld) [#/Vol] 0.4 10*3/uL [facility] Eosinophils/100 WBC (Bld) 7.9 % [facility] Erythrocyte distribution width (RBC) [Ratio] 13.8 % 11.5 - 15.0 % [facility] Hematocrit (Bld) [Volume fraction] 38.3 % 35 - 47 % [facility] Hemoglobin (Bld) [Mass/Vol] 13.1 g/dL 11.7 - 15.5 g/dL [facility] Lymphocytes (Bld) [#/Vol] 1.4 10*3/uL [facility] Lymphocytes/100 WBC (Bld) 25.7 % [facility] MCH (RBC) [Entitic mass] 33.6 pg 27 - 34 pg [facility] MCHC (RBC) [Mass/Vol] 34.1 g/dL 32 - 36 g/dL [facility] MCV (RBC) [Entitic vol] 99 fL 80 - 100 fL [facility] Monocytes (Bld) [#/Vol] 0.4 10*3/uL [facility] Monocytes/100 WBC (Bld) 6.8 % [facility] Neutrophils (Bld) [#/Vol] 3.2 10*3/uL [facility] Neutrophils/100 WBC (Bld) 58.6 % [facility] Platelet mean volume (Bld) [Entitic vol] 8.6 fL 7 - 12 fL [facility] Platelets (Bld) [#/Vol] 404 10*3/uL [facility] RBC (Bld) [#/Vol] 3.88 10*6/uL [facility] WBC corrected for nucl RBC Auto (Bld) [#/Vol] 5.[address] [facility] [address] ABDOMEN AND PELVIS WO CON Ton 02-15-2024 CT ABDOMEN AND PELVIS WO CONT CT ABDOMEN AND PELVIS WO CONT CLINICAL INFORMATION: Postoperative abdominal pain. Patient status post colectomy on 01/30/2024. TECHNIQUE: CT Abdomen and Pelvis without intravenous contrast. Lack of IV contrast compromises evaluation of solid organs, vascular structures, and abscesses. All CT scans at this facility use dose modulation, iterative reconstruction, and/or weight based dosing when appropriate to reduce radiation dose to as low as reasonably achievable. COMPARISON: 11/18/2023. I have no report for the prior exam report for the prior exam. FINDINGS: Extreme lung bases are clear apart from some mild atelectasis or scarring within right lower lobe. There is at least moderate elevation right hemidiaphragm which appears unchanged. The liver shows no definite focal lesion. The gallbladder is absent unchanged. Adrenal glands, kidneys, and pancreas are not enlarged. The appendix is high in location posterior to right colon unchanged otherwise normal. Postsurgical change of sigmoid colon noted. Previously noted sigmoid diverticulitis has resolved. There are some persistent diverticula within left and proximal sigmoid colon. There is a oval-shaped fatty structure with mild surrounding stranding and central dilated vascular structure posterior medial to mid to distal left colon. This is not appear epicentered about a diverticulum. No free intra-abdominal air or fluid identified. The abdominal aorta shows normal caliber. No significant retroperitoneal lymphadenopathy appreciated. Preaortic left renal vein is present with mild narrowing. Uterus is present. Bone windows show no worrisome lesion. IMPRESSION: 1. Oval-shaped fatty structure with mild circumferential stranding in central dilated vascular structure. This occurs posterior medial to mid to distal left colon. Findings most likely represent epiploic appendigitis. This does not appear epicentered about a diverticulum. 2. Interval sigmoid resection with scattered remaining left and proximal sigmoid diverticula. 3. Interval resolution of sigmoid diverticulitis. 4. Compromised evaluation performed without IV contrast. Finalized by Krystle Jacobsen MD on 02/15/2024 11:00 AM Normal [facility] CT Abdomen and Pelvis WO con traston 02-15-2024 CLINICAL INFORMATION : Postoperative abdominal pain. Patient status post colectomy on 01/30/2024. TECHNIQUE: CT Abdomen and Pelvis without intravenous contrast. Lack of IV contrast compromises evaluation of solid organs, vascular structures, and abscesses. All CT scans at this facility use dose modulation, iterative reconstruction, and/or weight based dosing when appropriate to reduce radiation dose to as low as reasonably achievable. COMPARISON: 11/18/2023. I have no report for the prior exam report for the prior exam. FINDINGS: Extreme lung bases are clear apart from some mild atelectasis or scarring within right lower lobe. There is at least moderate elevation right hemidiaphragm which appears unchanged. The liver shows no definite focal lesion. The gallbladder is absent unchanged. Adrenal glands, kidneys, and pancreas are not enlarged. The appendix is high in location posterior to right colon unchanged otherwise normal. Postsurgical change of sigmoid colon noted. Previously noted sigmoid diverticulitis has resolved. There are some persistent diverticula within left and proximal sigmoid colon. There is a oval-shaped fatty structure with mild surrounding stranding and central dilated vascular structure posterior medial to mid to distal left colon. This is not appear epicentered about a diverticulum. No free intra-abdominal air or fluid identified. The abdominal aorta shows normal caliber. No significant retroperitoneal lymphadenopathy appreciated. Preaortic left renal vein is present with mild narrowing. Uterus is present. Bone windows show no worrisome lesion. IMPRESSION: 1. Oval-shaped fatty structure with mild circumferential stranding in central dilated vascular structure. This occurs posterior medial to mid to distal left colon. Findings most likely represent epiploic appendigitis. This does not appear epicentered about a diverticulum. 2. Interval sigmoid resection with scattered remaining left and proximal sigmoid diverticula. 3. Interval resolution of sigmoid diverticulitis. 4. Compromised evaluation performed without IV contrast. Finalized by Krystle Jacobsen MD on 02/15/2024 11:00 AM [facility] Krystle Jacobsen M D - 02/15/2024 CLINICAL INFORMATION: Postoperative abdominal pain. Patient status post colectomy on 01/30/2024. TECHNIQUE: CT Abdomen and Pelvis without intravenous contrast. Lack of IV contrast compromises evaluation of solid organs, vascular structures, and abscesses. All CT scans at this facility use dose modulation, iterative reconstruction, and/or weight based dosing when appropriate to reduce radiation dose to as low as reasonably achievable. COMPARISON: 11/18/2023. I have no report for the prior exam report for the prior exam. FINDINGS: Extreme lung bases are clear apart from some mild atelectasis or scarring within right lower lobe. There is at least moderate elevation right hemidiaphragm which appears unchanged. The liver shows no definite focal lesion. The gallbladder is absent unchanged. Adrenal glands, kidneys, and pancreas are not enlarged. The appendix is high in location posterior to right colon unchanged otherwise normal. Postsurgical change of sigmoid colon noted. Previously noted sigmoid diverticulitis has resolved. There are some persistent diverticula within left and proximal sigmoid colon. There is a oval-shaped fatty structure with mild surrounding stranding and central dilated vascular structure posterior medial to mid to distal left colon. This is not appear epicentered about a diverticulum. No free intra-abdominal air or fluid identified. The abdominal aorta shows normal caliber. No significant retroperitoneal lymphadenopathy appreciated. Preaortic left renal vein is present with mild narrowing. Uterus is present. Bone windows show no worrisome lesion. IMPRESSION: 1. Oval-shaped fatty structure with mild circumferential stranding in central dilated vascular structure. This occurs posterior medial to mid to distal left colon. Findings most likely represent epiploic appendigitis. This does not appear epicentered about a diverticulum. 2. Interval sigmoid resection with scattered remaining left and proximal sigmoid diverticula. 3. Interval resolution of sigmoid diverticulitis. 4. Compromised evaluation performed without IV contrast. Finalized by Krystle Jacobsen MD on 02/15/2024 11:00 AM [facility] Radiology Study observation (narrative) [facility] CT Abdomen and Pelvis WO con trastOrdered By: Krystle Jacobsen on 02-15-2024 [facility] Work Phone: URINALYSISon 02-15-2024 Bilirubin Ql (U) Negative Normal NEG [facility] Comment on above: Performed By: #### U A ####[facility] ([id number])[address] [place] [address] BLOOD/HGB Negative Normal NEG [facility] Comment on above: Performed By: #### U A ####[facility] ([id number])[address] [address] [place] [address] Color (U) YELLOW Normal YELLOW [facility] Comment on above: Performed By: #### U A ####[facility] ([id number])[address], [place] [address] Glucose Ql (U) Negative Normal NEG [facility] Comment on above: Performed By: #### U A ####[facility] ([id number])[address], [place] [address] Hyaline casts LM Ql (Urine sed) 4 /lpf High 0-[address] [facility] Comment on above: Performed By: #### U A ####[facility] ([id number])[address], [place] [address] Ketones Ql (U) Negative Normal NEG [facility] Comment on above: Performed By: #### U A ####[facility] ([id number])[address], [place] [address] Leukocyte esterase Test strip Ql (U) Trace Abnormal NEG [facility] Comment on above: Performed By: #### U A ####[facility] ([id number])[address] [address] MUCOUS PRESENT Abnormal NONE [facility] Comment on above: Performed By: #### U A ####[facility] ([id number])[address], [place] [address] Nitrite Ql (U) Negative Normal NEG [facility] Comment on above: Performed By: #### U A ####[facility] ([id number])[address] [place] [address] pH (U) 5.5 [pH] Normal 5.0-8.[address] [facility] Comment on above: Performed By: #### U A ####[facility] ([id number])[address], [place] [address] Protein Ql (U) Trace Abnormal NEG [facility] Comment on above: Performed By: #### U A ####[facility] ([id number])[address] [place] [address] R.B.CELLS 0 /hpf Normal 0-[address] [facility] Comment on above: Performed By: #### U A ####[facility] ([id number])[address] [address] RENAL EPITHELIUM <1 High 0 [facility] Comment on above: Performed By: #### U A ####[facility] ([id number])[address] [place] [address] Specific gravity (U) [Rel density] 1.024 Normal 1.003-1.[address] [facility] Comment on above: Performed By: #### U A ####[facility] ([id number])[address] [address], [place] [address] SQUAMOUS EPITHELIUM <1 Normal 0-5 [facility] Comment on above: Performed By: #### U A ####[facility] ([id number])[address] [address] [place] [address] TRANSITIONAL EPITH <1 High 0 [facility] Comment on above: Performed By: #### U A ####[facility] ([id number])[address] [address] [place] [address] TURBIDITY CLEAR Normal CLEAR [facility] Comment on above: Performed By: #### U A ####[facility] ([id number])[address] [place] [address] Urobilinogen (U) [Mass/Vol] mg/dL Normal <1.[address] [facility] Comment on above: Performed By: #### U A ####[facility] ([id number])[address] [place] [address] W.B.CELLS 5 /hpf Normal 0-[address] [facility] Comment on above: Performed By: #### U A ####[facility] ([id number])[address] [facility] [address] [place], [place] [id number] Urinalysison 02-15-2024 Bilirubin Ql (U) Negative Negative^Ne ga tive [facility] Color (U) YELLOW YELLOW^YELLOW [facility] Epithelial cells Auto (Urine sed) [#/Area] [facility] Epithelial cells.non-squamous LM.LPF (Urine sed) [#/Area] High 0 /hpf [facility] Epithelial cells.renal LM.HPF (Urine sed) [#/Area] High 0 /hpf [facility] Glucose (U) [Mass/Vol] Negative Negative^Nega tive mg/dL [facility] Hemoglobin Auto test strip Ql (U) Negative Negative^Nega tive [facility] Hyaline casts (Urine sed) [#/Area] 4 /[LPF] High [facility] Interpretation and review of laboratory results Abnormal [facility] Ketones (U) [Mass/Vol] Negative Negative^Nega tive mg/dL [facility] Leukocyte esterase Auto test strip Ql (U) Trace Abnormal Negative^Nega tive [facility] Mucus Ql (Urine sed) PRESENT Abnormal NONE^NONE [facility] Nitrite Auto test strip Ql (U) Negative Negative^Nega tive [facility] pH (U) 5.5 [pH] 5.0 - 8.5 [facility] Protein (U) [Mass/Vol] Trace Abnormal Negative^Nega tive mg/dL [facility] RBC Auto (Urine sed) [#/Area] 0 [facility] Specific gravity Refractometry automated (U) [Rel density] 1.024 1.003 - 1.035 [facility] Turbidity Ql (U) CLEAR CLEAR^CLEAR [facility] Urobilinogen Qn (U) NINF [facility] WBC Auto (Urine sed) [#/Area] 5 [facility] BASIC METABOLIC PANLon 01-30 Anion gap [Moles/Vol] 7 mmol/L Normal 5-[address] [facility] Comment on above: Performed By: #### B ESTEBAN, CBC, , 2776-07 #### [facility] ([id number]) [address] [place] [address] Calcium [Mass/Vol] 8.3 mg/dL Low 8.5-10.5 [facility] Comment on above: Performed By: #### B ESTEBAN, CBC, , 2776-07 #### [facility] ([id number]) [address] [place] [address] 73664 Chloride [Moles/Vol] 101 mmol/L Normal 98-[address] [facility] Comment on above: Performed By: #### B ESTEBAN, CBC, , 2776-07 #### [facility] ([id number]) [address] [place] [address]1202 CO2 [Moles/Vol] 27 mmol/L Normal 22-[address] [facility] Comment on above: Performed By: #### B ESTEBAN, CBC, , 2776-07 #### [facility] ([id number]) [address] [place] [address] 38978 Creatinine [Mass/Vol] 0.68 mg/dL Normal 0.40-1.[address] [facility] Comment on above: Result Comment: METH OD TRACEABLE TO IDMS STANDARD Performed By: #### B ESTEBAN, CBC, , 2776-07 #### [facility] ([id number]) [address] [place] [address] 17773 eGFR (CKD-EPI) NON-RACE DEPENDENT >90 Normal >[address] [facility] Comment on above: Result Comment: Reported eGFR is based on the CKD-EPI 2020 equation that does not use a race coefficient. Performed By: #### B ESTEBAN, CBC, , 2776-07 #### [facility] ([id number]) [address] [place] [address] Glucose [Mass/Vol] 112 mg/dL High 65-99 [facility] Comment on above: Performed By: #### B MP, CBC, 2776-07 #### [facility] ([id number]) [address] [place] [address] 89480 Potassium [Moles/Vol] 4.1 mmol/L Normal 3.5-5.[address] [facility] Comment on above: Performed By: #### B MP, CBC, , 2776-07 #### [facility] ([id number]) [address] [place] [address] 62014 Sodium [Moles/Vol] 135 mmol/L Normal 134-146 [facility] Comment on above: Performed By: #### B MP, CBC, 2776-07 #### [facility] ([id number]) [address] [place] [address] [place] [address] Urea nitrogen [Mass/Vol] 12 mg/dL Normal 5-[address] [facility] Comment on above: Performed By: #### B MP, CBC, 2776-07 #### [facility] ([id number]) [address] [place] [address] 17211 COMPLETE BLOOD COUNTon 01-30 Erythrocyte distribution width (RBC) [Ratio] 13.9 % Normal 11.5-15.[address] [facility] Comment on above: Performed By: #### B MP, CBC, 2776-07 #### [facility] ([id number]) [address] [place] [address] 14859 Hematocrit (Bld) [Volume fraction] 34.7 % Low 35-[address] [facility] Comment on above: Performed By: #### B MP, CBC, 2776-07 #### [facility] ([id number]) [address] [place] [address] 58566 Hemoglobin (Bld) [Mass/Vol] 11.8 g/dL Normal 11.7-15.[address] [facility] Comment on above: Performed By: #### B MP, CBC, , 2776-07 #### [facility] ([id number]) [address] [place] [address] 37304 MCH (RBC) [Entitic mass] 33.3 pg Normal 27-[address] [facility] Comment on above: Performed By: #### B MP, CBC, , 2776-07 #### [facility] ([id number]) [address] [place] [address] 88474 MCHC (RBC) [Mass/Vol] 33.9 g/dL Normal 32-[address] [facility] Comment on above: Performed By: #### B MP, CBC, 2776-07 #### [facility] ([id number]) [address] [place] [address] 24087 MCV (RBC) [Entitic vol] 98 fL Normal 80-[address] [facility] Comment on above: Performed By: #### B MP, CBC, 2776-07 #### [facility] ([id number]) [address] [place] [address] 29802 Platelet mean volume (Bld) [Entitic vol] 7.9 fL Normal 7-[address] [facility] Comment on above: Performed By: #### B MP, CBC, 2776-07 #### [facility] ([id number]) [address] [place] [address] 05346 Platelets (Bld) [#/Vol] 336 10*3/uL Normal 150-[address] [facility] Comment on above: Performed By: #### B MP, CBC, 2776-07 #### [facility] ([id number]) [address] [place] [address] 68037 RBC COUNT 3.53 X10E12/L Low 3.80-5.[address] [facility] Comment on above: Performed By: #### B MP, CBC, , 2776-1 #### [facility] ([id number]) [address] [place] [address] 47261 WBC (Bld) [#/Vol] 10.4 10*3/uL Normal 4.0-11.0 [facility] Comment on above: Performed By: #### B MP, CBC, , 2776-07 #### [facility] ([id number]) [address] [place] [address] 12281 MAGNESIUMon 01-31-2024 Magnesium [Mass/Vol] 2.0 mg/dL Normal 1.8-2.[address] [facility] Comment on above: Performed By: #### B MP, CBC, , 1 #### [facility] ([id number]) [address] [place] [address] 47327 PHOSPHORUSon 01-31-2024 Phosphate [Mass/Vol] 3.7 mg/dL Normal 2.4-4.[address] [facility] Comment on above: Performed By: #### B MP, CBC, , 2776-1 #### [facility] ([id number]) [address] [place] [address] 11379 Surgical Pathologyon 024 Surgical Pathology Normal [facility] Comment on above: Result Comment: [facility] [address] [place] [address] Surgical Pathology Consultation Patient Name:MAR ADAME:1965 (Age: 59)Gender:FTaken:4Reported:4Physician(s):Mickey Nick MD ([phone])Copy To: Rec. #:[id number]: #[id number] Final Pathologic Diagnosis Sigmoid colon, segmental resection: Diverticular disease with multiple diverticula and chronic diverticulitis, accompanied by submucosal fibrosis and hypertrophy of muscularis propria. No evidence of perforation or active diverticulitis. No malignancy or dysplasia identified. Report Electronically Signed Out /02/01/2024amara Medina MD Interpretation performed at [facility], [address] [place] [address], License number: [id number]. Clinical History Diverticulitis. Gross Description Received in formalin labeled SETZLER, sigmoid colon is a segment of colon received opened at 1 end and closed at the opposing end with line of lacie. The specimen is 9 x 2.5 x 2 cm. The serosa is pink-vargas, smooth and glistening. The serosa is pink-vargas and glistening with overlying adhesions. The specimen is opened to reveal pink-vargas smooth and glistening folded. There are multiple (between 5-10) nonperforated diverticula dispersed throughout the specimen. The specimen is partially constricted with a narrowed lumen to 1 cm in diameter. The colon wall ranges from 0.2 cm to 0.4 cm in thickness. The mesocolon is sectioned to reveal no abscess cavity identified. Cassettes A open end, en face B closest staple margin, en face C-E diverticula (5,ss,[id number], m2) . /01/31/2024[facility] Specimen(s) Received Sigmoid colon Fee Codes(s): 1; 59996 BASIC METABOLIC PANLon 01-12 Anion gap [Moles/Vol] 10 mmol/L Normal 5-[address] [facility] Comment on above: Performed By: #### C BCA, BMP #### [facility] ([id number]) [address] [place] [address] Calcium [Mass/Vol] 9.7 mg/dL Normal 8.5-10.5 [facility] Comment on above: Performed By: #### C DAVID, BMP #### [facility] ([id number]) [address], [address] [place] [address] Chloride [Moles/Vol] 102 mmol/L Normal 98-[address] [facility] Comment on above: Performed By: #### C BCA, BMP #### [facility] ([id number]) [address], [address] [place] [address] CO2 [Moles/Vol] 26 mmol/L Normal 22-[address] [facility] Comment on above: Performed By: #### C BCA, BMP #### [facility] ([id number]) [address] [place] [address] Creatinine [Mass/Vol] 0.82 mg/dL Normal 0.40-1.[address] [facility] Comment on above: Result Comment: METH OD TRACEABLE TO IDMS STANDARD Performed By: #### C BCA, BMP #### [facility] ([id number]) [address], [address] [place] [address] GFR/1.73 sq M.predicted among non-blacks MDRD (S/P/Bld) [Vol rate/Area] 83 mL/min/{1.73_m2} Normal >[address] [facility] Comment on above: Result Comment: Reported eGFR is based on the CKD-EPI 2020 equation that does not use a race coefficient. Performed By: #### C BCA, BMP #### [facility] ([id number]) [address], [address] [place] [address] Glucose [Mass/Vol] 106 mg/dL High 65-99 [facility] Comment on above: Performed By: #### C BCA, BMP #### [facility] ([id number]) [address], [address] [place] [address] Potassium [Moles/Vol] 3.9 mmol/L Normal 3.5-5.[address] [facility] Comment on above: Performed By: #### C BCA, BMP #### [facility] ([id number]) [address], [address] [place] [address] Sodium [Moles/Vol] 138 mmol/L Normal 134-146 [facility] Comment on above: Performed By: #### Juanis HERNANDEZ, BMP #### [facility] ([id number]) [address], [address] [place] [address] Urea nitrogen [Mass/Vol] 16 mg/dL Normal 5-[address] [facility] Comment on above: Performed By: #### Juanis HERNANDEZ, BMP #### [facility] ([id number]) [address], [address] [place] [address] CBC AND AUTO DIFFon 01-13-20 24 ABSOLUTE BASOPHIL 0.1 X10E9/L Normal 0.0-0.2 [facility] Comment on above: Performed By: #### Juanis HERNANDEZ, BMP #### [facility] ([id number]) [address], [address] [place] [address] ABSOLUTE NEUTROPHIL 3.4 X10E9/L Normal 1.5-6.6 [facility] Comment on above: Performed By: #### Juanis HERNANDEZ, BMP #### [facility] ([id number]) [address], [address] [place] [address] Basophils/100 WBC (Bld) 1.3 % Normal [facility] Comment on above: Performed By: #### Juanis HERNANDEZ, BMP #### [facility] ([id number]) [address], [address] [place] [address] Eosinophils (Bld) [#/Vol] 0.2 10*3/uL Normal 0.0-0.[address] [facility] Comment on above: Performed By: #### Juanis HERNANDEZ, BMP #### [facility] ([id number]) [address], [address] [place] [address] Eosinophils/100 WBC (Bld) 3.6 % Normal [facility] Comment on above: Performed By: #### C BCA, BMP #### [facility] ([id number]) [address], [address] [place] [address] Erythrocyte distribution width (RBC) [Ratio] 13.6 % Normal 11.5-15.[address] [facility] Comment on above: Performed By: #### C BCA, BMP #### [facility] ([id number]) [address], [address] [place] [address] Hematocrit (Bld) [Volume fraction] 39.1 % Normal 35-[address] [facility] Comment on above: Performed By: #### C DAVID, BMP #### [facility] ([id number]) [address], [address] [place] [address] Hemoglobin (Bld) [Mass/Vol] 13.6 g/dL Normal 11.7-15.[address] [facility] Comment on above: Performed By: #### C BCA, BMP #### [facility] ([id number]) [address], [address] [place] [address] Lymphocytes (Bld) [#/Vol] 1.4 10*3/uL Normal 1.0-3.[address] [facility] Comment on above: Performed By: #### C BCA, BMP #### [facility] ([id number]) [address], [address] [place] [address] Lymphocytes/100 WBC (Bld) 25.8 % Normal [facility] Comment on above: Performed By: #### C BCA, BMP #### [facility] ([id number]) [address], [address] [place] [address] MCH (RBC) [Entitic mass] 33.6 pg Normal 27-[address] [facility] Comment on above: Performed By: #### C BCA, BMP #### [facility] ([id number]) [address], [address] [place] [address] MCHC (RBC) [Mass/Vol] 34.7 g/dL Normal 32-[address] [facility] Comment on above: Performed By: #### Juanis HERNANDEZ, BMP #### [facility] ([id number]) [address], [address] [place] [address] MCV (RBC) [Entitic vol] 97 fL Normal 80-[address] [facility] Comment on above: Performed By: #### C DAVID, BMP #### [facility] ([id number]) [address], [address] [place] [address] Monocytes (Bld) [#/Vol] 0.4 10*3/uL Normal 0-0.[address] [facility] Comment on above: Performed By: #### Juanis HERNANDEZ, BMP #### [facility] ([id number]) [address], [address] [place] [address] Monocytes/100 WBC (Bld) 7.8 % Normal [facility] Comment on above: Performed By: #### C DAVID, BMP #### [facility] ([id number]) [address], [address] [place] [address] Neutrophils/100 WBC (Bld) 61.5 % Normal [facility] Comment on above: Performed By: #### Juanis HERNANDEZ, BMP #### [facility] ([id number]) [address], [address] [place] [address] Platelet mean volume (Bld) [Entitic vol] 8.6 fL Normal 7-[address] [facility] Comment on above: Performed By: #### C DAVID, BMP #### [facility] ([id number]) [address], [address] [place] [address] Platelets (Bld) [#/Vol] 330 10*3/uL Normal 150-[address] [facility] Comment on above: Performed By: #### Juanis HERNANDEZ, BMP #### [facility] ([id number]) [address], [address] [place] [address] RBC COUNT 4.04 X10E12/L Normal 3.80-5.[address] [facility] Comment on above: Performed By: #### C BCA, BMP #### [facility] ([id number]) [address], [address] [place] [address] WBC (Bld) [#/Vol] 5.5 10*3/uL Normal 4.0-11.0 [facility] Comment on above: Performed By: #### C BCA, BMP #### [facility] ([id number]) [address], [address] [place] [address] XR SPINE LUMB BENDING ONLY 2 -3 VWSon 12-27-2023 XR SPINE LUMB BENDING ONLY 2-3 VWS XR SPINE LUMB BENDING ONLY 2-3 VWS EXAM: XR SPINE LUMB BENDING ONLY 2-3 VWS CLINICAL INDICATIONS: Low back pain, unspecified back pain laterality, unspecified chronicity, unspecified whether sciatica present FINDINGS/IMPRESSION: Vertebral body heights and alignment are maintained without significant spondylolysis or dynamic translation. Mild intervertebral disc space narrowing at L5-S1. There may be mild bony neuroforaminal narrowing at L5-S1 and L4-L5, with neuroforaminal narrowing best assessed on the recent MR dated 12/09/2023. Finalized by Stephan Damon on 12/27/2023 1:41 PM Normal [facility] MR LUMBAR SPINE WO CONTon MR LUMBAR SPINE WO CONT MR LUMBAR SPINE WO CONT MR LUMBAR SPINE WO CONT: 12/09/2023 9:10 AM Clinical: Low back pain and left sciatica. Difficulty sitting. Symptoms for one month. Examination: MRI Lumbar spine Procedure: Multiplanar multisequence MR imaging performed through the lumbar spine. Comparison: none Findings: Presumed 5 lumbar type vertebral bodies. Lumbar vertebral body height and signal and alignment are normal. Conus medullaris is unremarkable. No epidural fluid collections or paraspinal soft tissue abnormality. At L1-2 and L2-3, disc space height preserved without disc herniation or spinal stenosis. At L3-4, there is mild degenerative disc disease. There is facet and ligamentous hypertrophy with facet effusions. Mild canalicular narrowing. At L4-5, there is large broad-based posterior protrusion extending greater towards the right. There is mild facet and ligamentous hypertrophy with facet effusions. There is narrowing of the right lateral recess and moderate spinal stenosis. Right inferior foraminal narrowing. At L5-S1, there is degenerative disc disease with disc bulge and posterior spurring. No spinal stenosis. IMPRESSION: * L4-5 large broad-based disc protrusion extending greater towards the right with narrowing of the right lateral recess and moderate spinal stenosis. Recommend correlation for symptoms attributable to this level. Finalized by Duane Galeas MD on 12/12/2023 1:42 PM Normal [facility] XR PELVIS 1 OR 2 Son 11-25 XR PELVIS 1 OR 2 VWS XR PELVIS 1 OR 2 VWS XR PELVIS 1 OR 2 VWS Clinical history:Lumbar degenerative disc disease pelvic pain Comparison: None. Findings: Degenerative changes of the lower lumbar spine. Degenerative changes of the bilateral subdural drains. No acute process fracture or dislocation. Impression: Degenerative changes without evidence of acute osseous abnormality. Finalized by Analia Antony MD on 11/26/2023 8:51 AM Normal [facility] XR SPINE LUMBAR 2 OR 3 Son 11-26-2023 XR SPINE LUMBAR 2 OR 3 VWS XR SPINE LUMBAR 2 OR 3 VWS XR SPINE LUMBAR 2 OR 3 VWS Clinical history:Lumbar degenerative disc disease Comparison: None. Findings: Lower lumbar degenerative disc disease with disco loss of amplitude degenerative changes most pronounced at L3-L4. No vertebral body height loss. Impression: Multilevel degenerative disc disease without acute process identified. Finalized by Analia Antony MD on 11/26/2023 8:51 AM Normal [facility] COVID/FLU/RSV RT-PCRon 09-09 SARS-CoV-2 (COVID-19) RNA NAVEEN+probe Ql (Unsp spec) Negative [facility] ([employer]) Other COVID/FLU/RSV RT-PCR Negative [facility] ([employer]) Other VITAMIN D 25 OHon 06-22-2022 VIT D 25-OH 37.8 ng/mL Normal [facility] Comment on above: Performed By: #### V ITAD #### [facility] [address], [place] [address] Dr. Vasquez Phillips VIT D RANGES SEE BELOW Normal [facility] Comment on above: Result Comment: <20 ng/mL Vit D deficient 20 - <30 ng/mL Vit D insufficient 30 - 100 ng/mL Vit D sufficient >100 ng/mL Potential Toxicity Performed By: #### V ITAD #### [facility] [address], [place] [address] Dr. Vasquez Phillips MG MAMM SCREEN 3D NORM CADon 12-15-2021 MG MAMM SCREEN 3D NORM CAD Patient: MAR ADAME Exam Date: 12/15/2021 : 1965 Gender:F Ordering : PHILIP PARKER Admission #: [id number] Family : Order #: [id number] CLICK HERE TO VIEW EXAM RADIOLOGY REPORT [...] No Treatments None Family Cancers None LOCATION: [facility] BREAST COMPOSITION: Scattered areas fibroglandular density. [...] PALPABLE LUMP SHOULD BE BIOPSIED. Dictated by: Belén Baez M.D. on 12/16/2021 at 08:09 Approved by: Belén Baez M.D. on 12/16/2021 at 08:11 Normal [facility] IMAGE-GUIDED PAP W/AGE BASED SCR PROTOCOLSon 07-14-2021 COMMENT Normal [facility] Comment on above: Order Comment: SPLIT 07/09/2021 FROM [id number] Result Comment: This order for age-based cervical cancer and STI screening follows ACOG guidelines(PB 168, 140, JLQ326). See individual assays for performing site location. Performed By: #### 9 8253, 57750 #### [facility] [address] Relations Specialist: Beka Chicas MD Result Comment: EXPL ANATORY [...] HPV 16,18/45on 07-14-2021 CLINICAL INFORMATION: Normal [facility] Comment on above: Result Comment: None given Performed By: #### 9 3680, 89350 #### [facility] [address] Relations Specialist: Beka Chicas MD COMMENT: Normal [facility] Comment on above: Result Comment: This case could not be evaluated with computer assisted technology. The slide was manually screened according to routine procedures. Performed By: #### 9 7950, 60184 #### [facility] [address] Relations Specialist: Beka Chicas MD CONCRETE FORM SETTER AND FINISHER: Normal [facility] Comment on above: Result Comment: JOVANNY SANCHEZ(ASCP) CT screening location: [place] [address]. Performed By: #### 9 9341, 22903 #### [facility] [address] Relations Specialist: Beka Chicas MD HPV mRNA E6/E7 Not detected Normal Not Detected [facility] Comment on above: Result Comment: Meth odology: Bicycle Technician-Mediated Amplification This assay detects E6/E7 viral messenger RNA (mRNA) from 14 high-risk HPV types (16,18,31,33,35,39,45,51,52,56,58,59,66,68). The analytical performance characteristics of this assay have been determined by [facility]. The modifications have not been cleared or approved by the FDA. This assay has been validated pursuant to the CLIA regulations and is used for clinical purposes. For additional information, please refer to http://education.Avolent/faq/WGG083f0 (This link if provided for information/ educational purposes only.) Performed By: #### 9 1414, 04612 #### [facility]-[address], [address] [place] [address] Relations Specialist: Beka Chicas MD INTERPRETATION/RESU LT: Normal [facility] Comment on above: Result Comment: Nega tive for intraepithelial lesion or malignancy. Performed By: #### 9 1414, 87059 #### [facility]-[address], [address] [place] [address] Relations Specialist: Beka Chicas MD LMP: Normal [facility] Comment on above: Result Comment: NONE GIVEN Performed By: #### 9 1414, 60137 #### [facility], [address] [place] [address] Relations Specialist: Beka Chicas MD PREV. BX: Normal [facility] Comment on above: Result Comment: NONE GIVEN Performed By: #### 9 1414, 19139 #### [facility], [address] [place] [address] Relations Specialist: Beka Chicas MD PREV. PAP: Normal [facility] Comment on above: Result Comment: NONE GIVEN Performed By: #### 9 1414, [id number] #### [facility] [address] Relations Specialist: Beka Chicas MD SOURCE: Normal [facility] Comment on above: Result Comment: Vagi na Performed By: #### 9 1414, 08762 #### [facility]-[address], [address] [place] [address] Relations Specialist: Beka Chicas MD STATEMENT OF ADEQUACY: Normal [facility] Comment on above: Result Comment: SATI SFACTORY FOR EVALUATION Performed By: #### 9 1414, 70211 #### [facility], [address] [place] [address] Relations Specialist: Beka Chicas MD COMPREHENSIVE METABOLIC PANE [facility] 07-10-2021 Albumin [Mass/Vol] 4.4 g/dL Normal 3.6-5.1 [facility] Comment on above: Performed By: #### 3 4499, 09798, 85881, 38853, 7600 #### [facility] [place] [address] Relations Specialist: Beka Chicas MD Albumin/Globulin [Mass ratio] 1.6 {ratio} Normal 1.0-2.5 [facility] Comment on above: Performed By: #### 3 4499, 68489, 18139, 63724, 7600 #### [facility] [address], [address] [place] [address] Relations Specialist: Beka Chicas MD ALP [Catalytic activity/Vol] 60 U/L Normal 37-153 [facility] Comment on above: Performed By: #### 3 4499, 59783, 36734, 30800, 7600 #### [facility] [place] [address] Relations Specialist: Beka Chicas MD ALT [Catalytic activity/Vol] 16 U/L Normal 6-29 [facility] Comment on above: Performed By: #### 3 4499, 59383, 89993, 56588, 7600 #### [facility] of [place] [address] Relations Specialist: Beka Chicas MD AST [Catalytic activity/Vol] 18 U/L Normal 10-35 [facility] Comment on above: Performed By: #### 3 4499, 02024, 42425, 99574, 7600 #### [facility] of [address], [address] [place] [address] Relations Specialist: Beka Chicas MD Bilirubin [Mass/Vol] 0.4 mg/dL Normal 0.2-1.2 [facility] Comment on above: Performed By: #### 3 4499, 82977, 56463, 70128, 7600 #### [facility] [address], [address] [place] [address] Relations Specialist: Beka Chicas MD BUN/CREATININE RATIO NOT APPLICABLE Normal 6-22 [facility] Comment on above: Performed By: #### 3 4499, 24201, 48206, 55826, 7600 #### [facility] [place] [address] Relations Specialist: Beka Chicas MD Calcium [Mass/Vol] 9.5 mg/dL Normal 8.6-10.4 [facility] Comment on above: Performed By: #### 3 4499, 47752, 79092, 95078, 7600 #### [facility] of [address], [address] [place] [address] Relations Specialist: Beka Chicas MD Chloride [Moles/Vol] 103 mmol/L Normal 98-110 [facility] Comment on above: Performed By: #### 3 4499, 91874, 95586, 97955, 7600 #### [facility] [place] [address] Relations Specialist: Beka Chicas MD CO2 [Moles/Vol] 26 mmol/L Normal 20-32 [facility] Comment on above: Performed By: #### 3 4499, 07834, 66976, 33838, 7600 #### [facility] [place] [address] Relations Specialist: Beka Chicas MD Creatinine [Mass/Vol] 0.85 mg/dL Normal 0.50-1.05 [facility] Comment on above: Result Comment: For patients >49 years of age, the reference limit for Creatinine is approximately 13% higher for people identified as -St Helenian. Performed By: #### 3 4499, 24306, 72447, 11315, 7600 #### [facility] [address], [address] [place] [address] Relations Specialist: Beka Chicas MD eGFR NON-AFR. GUINEAN 77 mL/min/1.73m2 Normal > OR = 60 [facility] Comment on above: Performed By: #### 3 4499, 33236, 13063, 62118, 7600 #### [facility] [place] [address] Relations Specialist: Beka Chicas MD GFR/1.73 sq M.predicted among blacks MDRD (S/P/Bld) [Vol rate/Area] 89 mL/min/{1.73_m2} Normal > OR = 60 [facility] Comment on above: Performed By: #### 3 4499, 18863, 29261, 25858, 7600 #### [facility] [place] [address] Relations Specialist: Beka Chicas MD Globulin (S) [Mass/Vol] 2.7 g/dL Normal 1.9-3.7 [facility] Comment on above: Performed By: #### 3 4499, 78728, 12168, 46319, 7600 #### [facility] [place] [address] Relations Specialist: Beka Chicas MD Glucose [Mass/Vol] 95 mg/dL Normal 65-99 [facility] Comment on above: Result Comment: Fasting reference interval Performed By: #### 3 4499, 13616, 27327, 01687, 7600 #### [facility] [place] [address] Relations Specialist: Beka Chicas MD Potassium [Moles/Vol] 4.2 mmol/L Normal 3.5-5.3 [facility] Comment on above: Performed By: #### 3 4499, 00264, 69470, 69246, 7600 #### [facility] [place] [address] Relations Specialist: Beka Chicas MD Protein [Mass/Vol] 7.1 g/dL Normal 6.1-8.1 [facility] Comment on above: Performed By: #### 3 4499, 97469, 65317, 21861, 7600 #### [facility] [address], [address] [place] [address] Relations Specialist: Beka Chicas MD Sodium [Moles/Vol] 137 mmol/L Normal 135-146 [facility] Comment on above: Performed By: #### 3 4499, 09177, 72338, 45459, 7600 #### [facility] [place] [address] Relations Specialist: Beka Chicas MD Urea nitrogen [Mass/Vol] 18 mg/dL Normal 7-25 [facility] Comment on above: Performed By: #### 3 4499, 53873, 41275, 09761, 7600 #### [facility] [place] [address] Relations Specialist: Beka Chicas MD LIPID PANEL, [place] [address] Cholesterol [Mass/Vol] 160 mg/dL Normal <200 [facility] Comment on above: Order Comment: LTC O NLY: NURSE COLLECTED - NO SPECIMEN PROVIDED. Performed By: #### 3 4499, 60983, 90922, 20711, 7600 #### [facility] [place] [address] Relations Specialist: Beka Chicas MD Cholesterol in HDL [Mass/Vol] 52 mg/dL Normal > OR = 50 [facility] Comment on above: Order Comment: LTC O NLY: NURSE COLLECTED - NO SPECIMEN PROVIDED. Performed By: #### 3 4499, 69397, 96278, 38599, 7600 #### [facility] [place] [address] Relations Specialist: Beka Chicas MD Cholesterol in LDL [Mass/Vol] 88 mg/dL Normal [facility] Comment on above: Order Comment: [...] equation in the estimation of LDL-C. Landen SS et al. DURGA. 2013;310(19): 6457-1495 (http://education.[employer]/faq/FSM414) Performed By: #### 3 4499, 71470, 45044, 68916, 7600 #### [facility] [address], [address] [place] [address] Relations Specialist: Beka Chicas MD Cholesterol.total/C holesterol in HDL [Mass ratio] 3.1 {ratio} Normal <5.0 [facility] Comment on above: Order Comment: LT O NLY: NURSE COLLECTED - NO SPECIMEN PROVIDED. Performed By: #### 3 4499, 61851, 02745, 89369, 7600 #### [facility] [address], [address] [place] [address] Relations Specialist: Beka Chicas MD NON HDL CHOLESTEROL 108 mg/dL (calc) Normal <130 [facility] Comment on above: Order Comment: LT O NLY: NURSE COLLECTED - NO SPECIMEN PROVIDED. Result Comment: For patients with diabetes plus 1 major ASCVD risk factor, treating to a non-HDL-C goal of <100 mg/dL (LDL-C of <70 mg/dL) is considered a therapeutic option. Performed By: #### 3 4499, 05172, 23419, 74243, 7600 #### [facility] [address], [address] [place] [address] Relations Specialist: Beka Chicas MD Triglyceride [Mass/Vol] 103 mg/dL Normal <150 [facility] Comment on above: Order Comment: [facility] O NLY: NURSE COLLECTED - NO SPECIMEN PROVIDED. Performed By: #### 3 4499, 11425, 45664, 37221, 7600 #### [facility] [place] [address] [facility], [address] [place] [address] Relations Specialist: Beka Chicas MD SARS COV 2 AB (IGG) Antonio AMAYA 07-10-2021 SARS-CoV-2 (COVID-19) Ab IA Qn 5.30 index High <1.00 [facility] Comment on above: Result Comment: This test [...] providers and patients using the following websites: [email or web address]-HCP [email or web address]-Patients Healthcare Providers: For additional information please refer to: http://education.[employer]ir[employer]/faq/FCJ838 (This link is being provided for informational/educational purposes only.) This test has been authorized by the FDA under an Emergency Use Authorization (EUA) for use by authorized laboratories. The FDA authorized labeling is available on the [employer] website: www.[employer]/Covid19. Performed By: #### 3 4499, 79664, 16307, 98213, 7600 #### [facility] [address], [address] [place] [address] Relations Specialist: Beka Chicas MD TSH+FREE T4on 07-10-2021 Free T4 [Mass/Vol] 1.1 ng/dL Normal 0.8-1.8 [facility] Comment on above: Performed By: #### 3 4499, 26819, 53332, 67382, 7600 #### [facility] [address], [address] [place] [address] Relations Specialist: Beka Chicas MD TSH Qn 0.87 m[IU]/L Normal 0.40-4.50 [facility] Comment on above: Performed By: #### 3 4499, 48774, 87035, 68607, 7600 #### [facility] [address], [address] [place] [address] Relations Specialist: Beka Chicas MD VITAMIN D,25-OH,TOTAL,IAon 1 09-10-2020 VITAMIN D,25-OH,TOTAL,IA 41 ng/mL Normal 30-100 [facility] Comment on above: Result Comment: Sandra min D Status 25-OH Vitamin D: Deficiency: <20 ng/mL Insufficiency: 20 - 29 ng/mL Optimal: > or = 30 ng/mL For 25-OH Vitamin D testing on patients on D2-supplementation and patients for whom quantitation of D2 and D3 fractions is required, the QuestAssureD(TM) 25-OH VIT D, (D2,D3), LC/MS/MS is recommended: order code 92397 (patients >2yrs). See Note 1 Note 1 For additional information, please refer to http://education.[employer]/faq/PWV489 (This link is being provided for informational/ educational purposes only.) Performed By: #### 3 4499, 28286, 43421, 40428, 7600 #### [facility] [address] [facility], [address] [place] [address] Relations Specialist: Beka Chicas MD Throat Cultureon 05-16-2021 Throat culture Respiratory Results Moderate Normal Respiratory Salo 2 Days PERFORMED BY: [place] [address] PATHOLOGIST WASHATERIA ATTENDANT BRIDGET SANTIAGO M.D. [facility] Comment on above: Performed By: #### C MD #### [place] [id number] [facility] Vital Signs Date Time Vital Sign Value Performing Clinician Facility 01-10-2025 14:23-0400 Body height 162.6 cm Benjamin Stein ARBORIST-JUNIOR PROGRAMMER ANALYST Work Phone: [facility] 01-10-2025 14:23-0400 Body mass index (BMI) [Ratio] 41.2 kg/m2 Benjamin Stein ARBORIST-JUNIOR PROGRAMMER ANALYST Work Phone: [facility] 01-10-2025 14:23-0400 Body weight 108.86 kg Benjamin Stein ARBORIST-JUNIOR PROGRAMMER ANALYST Work Phone: [facility] 01-10-2025 14:23-0400 Diastolic blood pressure 109 mm[Hg] Benjamin Stein ARBORIST-JUNIOR PROGRAMMER ANALYST Work Phone: [facility] 01-10-2025 14:23-0400 Heart rate 68 /min Benjamin Stein ARBORIST-JUNIOR PROGRAMMER ANALYST Work Phone: [facility] 01-10-2025 14:23-0400 Systolic blood pressure 152 mm[Hg] Benjamin Stein ARBORIST-JUNIOR PROGRAMMER ANALYST Work Phone: [facility] 01-07-2025 15:56-0400 Body mass index (BMI) [Ratio] 41.86 kg/m2 Daina Schlachter ARBORIST-JUNIOR PROGRAMMER ANALYST Work Phone: [facility] 01-07-2025 15:56-0400 Body weight 110.68 kg Daina Matiaser ARBORIST-JUNIOR PROGRAMMER ANALYST Work Phone: [facility] 01-07-2025 15:56-0400 Diastolic blood pressure 80 mm[Hg] Daina Houchter ARBORIST-JUNIOR PROGRAMMER ANALYST Work Phone: [facility] 01-07-2025 15:56-0400 Heart rate 97 /min Daina Houchter ARBORIST-JUNIOR PROGRAMMER ANALYST Work Phone: [facility] 01-07-2025 15:56-0400 Respiratory rate 18 /min Daina Schlachter ARBORIST-JUNIOR PROGRAMMER ANALYST Work Phone: [facility] 01-07-2025 15:56-0400 SaO2% (BldA) [Mass fraction] 99 % Daina Houchter ARBORIST-JUNIOR PROGRAMMER ANALYST Work Phone: [facility] 01-07-2025 15:56-0400 Systolic blood pressure 142 mm[Hg] Daina Eppslachter ARBORIST-JUNIOR PROGRAMMER ANALYST Work Phone: [facility] 10-29-2024 11:12-0400 Body mass index (BMI) [Ratio] 42.2 kg/m2 Daina Houchter ARBORIST-JUNIOR PROGRAMMER ANALYST Work Phone: [facility] 10-29-2024 11:12-0400 Body weight 111.58 kg Daina Matiaser ARBORIST-JUNIOR PROGRAMMER ANALYST Work Phone: [facility] 10-29-2024 11:12-0400 Diastolic blood pressure 80 mm[Hg] Daina Eppslachter ARBORIST-JUNIOR PROGRAMMER ANALYST Work Phone: [facility] 10-29-2024 11:12-0400 Heart rate 77 /min Daina Michlachter ARBORIST-JUNIOR PROGRAMMER ANALYST Work Phone: [facility] 10-29-2024 11:12-0400 Respiratory rate 18 /min Daina Bailey ARBORIST-JUNIOR PROGRAMMER ANALYST Work Phone: [facility] 10-29-2024 11:12-0400 SaO2% (BldA) [Mass fraction] 93 % Daina Matiaser ARBORIST-JUNIOR PROGRAMMER ANALYST Work Phone: [facility] 10-29-2024 11:12-0400 Systolic blood pressure 140 mm[Hg] Daina Matiaser ARBORIST-JUNIOR PROGRAMMER ANALYST Work Phone: [facility] 10-22-2024 11:13-0400 Body mass index (BMI) [Ratio] 42.03 kg/m2 Daina Matiaser ARBORIST-JUNIOR PROGRAMMER ANALYST Work Phone: [facility] 10-22-2024 11:13-0400 Body weight 111.13 kg Daina Matiaser ARBORIST-JUNIOR PROGRAMMER ANALYST Work Phone: [facility] 10-22-2024 11:13-0400 Diastolic blood pressure 80 mm[Hg] Daina Matiaser ARBORIST-JUNIOR PROGRAMMER ANALYST Work Phone: [facility] 10-22-2024 11:13-0400 Heart rate 87 /min Daina Matiaser ARBORIST-JUNIOR PROGRAMMER ANALYST Work Phone: [facility] 10-22-2024 11:13-0400 Respiratory rate 18 /min Daina Matiaser ARBORIST-JUNIOR PROGRAMMER ANALYST Work Phone: [facility] 10-22-2024 11:13-0400 SaO2% (BldA) [Mass fraction] 97 % Daina Matiaser ARBORIST-JUNIOR PROGRAMMER ANALYST Work Phone: [facility] 10-22-2024 11:13-0400 Systolic blood pressure 132 mm[Hg] Daina Houchter ARBORIST-JUNIOR PROGRAMMER ANALYST Work Phone: [facility] 10-08-2024 13:10-0400 Body mass index (BMI) [Ratio] 42.2 kg/m2 Daina Houchter ARBORIST-JUNIOR PROGRAMMER ANALYST Work Phone: [facility] 10-08-2024 13:10-0400 Body temperature 98.6 [degF] Daina Bailey ARBORIST-JUNIOR PROGRAMMER ANALYST Work Phone: [facility] 10-08-2024 13:10-0400 Body weight 111.58 kg Daina Bailey ARBORIST-JUNIOR PROGRAMMER ANALYST Work Phone: [facility] 10-08-2024 13:10-0400 Diastolic blood pressure 72 mm[Hg] Daina Bailey ARBORIST-JUNIOR PROGRAMMER ANALYST Work Phone: [facility] 10-08-2024 13:10-0400 Heart rate 66 /min Daina Bailey ARBORIST-JUNIOR PROGRAMMER ANALYST Work Phone: [facility] 10-08-2024 13:10-0400 Respiratory rate 18 /min Daina Bailey ARBORIST-JUNIOR PROGRAMMER ANALYST Work Phone: [facility] 10-08-2024 13:10-0400 SaO2% (BldA) [Mass fraction] 97 % Daina Bailey ARBORIST-JUNIOR PROGRAMMER ANALYST Work Phone: [facility] 10-08-2024 13:10-0400 Systolic blood pressure 130 mm[Hg] Daina Bailey ARBORIST-JUNIOR PROGRAMMER ANALYST Work Phone: [facility] 09-17-2024 16:54-0500 Body height 162.56 cm [facility] 09-17-2024 16:54-0500 Body mass index (BMI) [Ratio] 41.3 kg/m2 [facility] 09-17-2024 16:54-0500 Body temperature 98.4 [degF] [facility] 09-17-2024 16:54-0500 Body weight 109.31 kg [facility] 09-17-2024 16:54-0500 Diastolic blood pressure 84 mm[Hg] [facility] 09-17-2024 16:54-0500 Heart rate 77 /min [facility] 09-17-2024 16:54-0500 SaO2% (BldA) [Mass fraction] 97 % [facility] 09-17-2024 16:54-0500 Systolic blood pressure 130 mm[Hg] [facility] 06-25-2024 13:14-0500 Body height 162.6 cm Benjamin Stein ARBORIST-JUNIOR PROGRAMMER ANALYST Work Phone: [facility] 06-25-2024 13:14-0500 Body mass index (BMI) [Ratio] 40.32 kg/m2 Benjamin Stein ARBORIST-JUNIOR PROGRAMMER ANALYST Work Phone: [facility] 06-25-2024 13:14-0500 Body weight 106.59 kg Benjamin Stein ARBORIST-JUNIOR PROGRAMMER ANALYST Work Phone: [facility] 05-16-2024 07:42-0400 Diastolic blood pressure 83 mm[Hg] Brian Girard MD Work Phone: [facility] 05-16-2024 07:42-0400 Heart rate 81 /min Brian Girard MD Work Phone: [facility] 05-16-2024 07:42-0400 Respiratory rate 16 /min Brian Girard MD Work Phone: [facility] 05-16-2024 07:42-0400 SaO2% (BldA) [Mass fraction] 97 % Brian Girard MD Work Phone: [facility] 05-16-2024 07:42-0400 Systolic blood pressure 132 mm[Hg] Brian Girard MD Work Phone: [facility] 05-16-2024 05:08-0400 Body temperature 98.1 [degF] Brian Girard MD Work Phone: [facility] 05-15-2024 15:07-0400 Body height 162.6 cm Brian Girard MD Work Phone: [facility] 05-15-2024 15:07-0400 Body mass index (BMI) [Ratio] 42.4 kg/m2 Brian Girard MD Work Phone: [facility] 05-15-2024 15:07-0400 Body weight 112.1 kg Brian Girard MD Work Phone: [facility] 05-08-2024 09:51-0400 Body height 162.6 cm Justina Valdez MD Work Phone: [facility] 05-08-2024 09:51-0400 Body mass index (BMI) [Ratio] 42.14 kg/m2 Justina Valdez MD Work Phone: [facility] 05-08-2024 09:51-0400 Body temperature 98.4 [degF] Justina Valdez MD Work Phone: [facility] 05-08-2024 09:51-0400 Body weight 111.36 kg Justina Valdez MD Work Phone: [facility] 05-08-2024 09:51-0400 Diastolic blood pressure 80 mm[Hg] Justina Valdez MD Work Phone: [facility] 05-08-2024 09:51-0400 Heart rate 76 /min Justina Valdez MD Work Phone: [facility] 05-08-2024 09:51-0400 Respiratory rate 16 /min Justina Valdez MD Work Phone: [facility] 05-08-2024 09:51-0400 Systolic blood pressure 134 mm[Hg] Justina Valdez MD Work Phone: [facility] 05-03-2024 12:55-0400 Body height 162.6 cm [facility] [address] [place] [address] 05-03-2024 12:55-0400 Body mass index (BMI) [Ratio] 42.42 kg/m2 [facility] [address] [place] [address] 05-03-2024 12:55-0400 Body temperature 97.81 [degF] [address] 05-03-2024 12:55-0400 Body weight 112.1 kg [facility] [address] [place] [address] 05-03-2024 12:55-0400 Diastolic blood pressure 74 mm[Hg] [facility] [address] [place] [address] 05-03-2024 12:55-0400 Heart rate 78 /min [facility] 05-03-2024 12:55-0400 Respiratory rate 20 /min [facility] 05-03-2024 12:55-0400 SaO2% (BldA) [Mass fraction] 96 % [facility] 05-03-2024 12:55-0400 Systolic blood pressure 130 mm[Hg] [facility] 05-01-2024 11:10-0400 Body height 162.6 cm Maveirck Nick MD Work Phone: [facility] 05-01-2024 11:10-0400 Body mass index (BMI) [Ratio] 42.23 kg/m2 Maverick Nick MD Work Phone: [facility] 05-01-2024 11:10-0400 Body weight 111.58 kg Maverick Nick MD Work Phone: [facility] 05-01-2024 11:10-0400 Diastolic blood pressure 93 mm[Hg] Maverick Nick MD Work Phone: [facility] 05-01-2024 11:10-0400 Heart rate 104 /min Maevrick Nick MD Work Phone: [facility] 05-01-2024 11:10-0400 Systolic blood pressure 145 mm[Hg] Maverick Nick MD Work Phone: [facility] 04-12-2024 11:19-0400 Body height 162.6 cm Brian Girard MD Work Phone: [facility] 04-12-2024 11:19-0400 Body mass index (BMI) [Ratio] 41.2 kg/m2 Brian Girard MD Work Phone: [facility] 04-12-2024 11:19-0400 Body weight 108.86 kg Brian Girard MD Work Phone: [facility] 04-12-2024 11:19-0400 Diastolic blood pressure 95 mm[Hg] Brian Girard MD Work Phone: [facility] 04-12-2024 11:19-0400 Heart rate 83 /min Brian Girard MD Work Phone: [facility] 04-12-2024 11:19-0400 Systolic blood pressure 127 mm[Hg] Brian Girard MD Work Phone: [facility] 04-09-2024 10:20-0400 Body height 162.6 cm Justina Valdez MD Work Phone: [facility] 04-09-2024 10:20-0400 Body mass index (BMI) [Ratio] 41.63 kg/m2 Justina Valdez MD Work Phone: [facility] 04-09-2024 10:20-0400 Body weight 110 kg Justina Valdez MD Work Phone: [facility] 04-09-2024 10:20-0400 Diastolic blood pressure 88 mm[Hg] Justina Valdez MD Work Phone: [facility] 04-09-2024 10:20-0400 Heart rate 80 /min Justina Valdez MD Work Phone: [facility] 04-09-2024 10:20-0400 Respiratory rate 16 /min Justina Valdez MD Work Phone: [facility] 04-09-2024 10:20-0400 Systolic blood pressure 148 mm[Hg] Justina Valdez MD Work Phone: [facility] 04-05-2024 07:54-0400 Body height 162.6 cm Lucila SWEENEY Work Phone: [facility] 04-05-2024 07:54-0400 Body mass index (BMI) [Ratio] 41.71 kg/m2 Lucila SWEENEY Work Phone: [facility] 04-05-2024 07:54-0400 Body weight 110.22 kg Lucila SWEENEY Work Phone: [facility] 04-05-2024 07:54-0400 Diastolic blood pressure 104 mm[Hg] Lucila SWEENEY Work Phone: [facility] 04-05-2024 07:54-0400 Heart rate 83 /min Lucila SWEENEY Work Phone: [facility] 04-05-2024 07:54-0400 SaO2% (BldA) [Mass fraction] 97 % Lucila SWEENEY Work Phone: [facility] 04-05-2024 07:54-0400 Systolic blood pressure 175 mm[Hg] Lucila SWEENEY Work Phone: [facility] 03-19-2024 11:04-0400 Body height 165.1 cm Maverick Nick MD Work Phone: [facility] 03-19-2024 11:04-0400 Body mass index (BMI) [Ratio] 40.94 kg/m2 Maverick Nick MD Work Phone: [facility] 03-19-2024 11:04-0400 Body weight 111.58 kg Maverick Nick MD Work Phone: [facility] 03-14-2024 16:08-0400 Body height 165.1 cm Justina Valdez MD Work Phone: [facility] 03-14-2024 16:08-0400 Body mass index (BMI) [Ratio] 40.94 kg/m2 Justina Valdez MD Work Phone: [facility] 03-14-2024 16:08-0400 Body temperature 98.01 [degF] Justina Valdez MD Work Phone: [facility] 03-14-2024 16:08-0400 Body weight 111.58 kg Justina Valdez MD Work Phone: [facility] 03-14-2024 16:08-0400 Diastolic blood pressure 80 mm[Hg] Justina Valdez MD Work Phone: [facility] 03-14-2024 16:08-0400 Heart rate 80 /min Justina Valdez MD Work Phone: [facility] 03-14-2024 16:08-0400 Respiratory rate 16 /min Justina Valdez MD Work Phone: [facility] 03-14-2024 16:08-0400 Systolic blood pressure 138 mm[Hg] Justina Valdez MD Work Phone: [facility] 03-08-2024 15:26-0400 Body height 165.1 cm Justina Valdez MD Work Phone: [facility] 03-08-2024 15:26-0400 Body mass index (BMI) [Ratio] 41.02 kg/m2 Justina aVldez MD Work Phone: [facility] 03-08-2024 15:26-0400 Body temperature 98.91 [degF] Justina Valdez MD Work Phone: [facility] 03-08-2024 15:26-0400 Body weight 111.81 kg Justina Valdez MD Work Phone: [facility] 03-08-2024 15:26-0400 Diastolic blood pressure 84 mm[Hg] Justina Valdez MD Work Phone: [facility] 03-08-2024 15:26-0400 Heart rate 88 /min Justina Valdez MD Work Phone: [facility] 03-08-2024 15:26-0400 Respiratory rate 16 /min Justina Valdez MD Work Phone: [facility] 03-08-2024 15:26-0400 Systolic blood pressure 132 mm[Hg] Justina Valdez MD Work Phone: [facility] 02-21-2024 14:17-0400 Body height 162.6 cm Maverick Nick MD Work Phone: [facility] 02-21-2024 14:17-0400 Body mass index (BMI) [Ratio] 41.68 kg/m2 Maverick Nick MD Work Phone: [facility] 02-21-2024 14:17-0400 Body weight 110.13 kg Maverick Nick MD Work Phone: [facility] 02-21-2024 14:17-0400 Diastolic blood pressure 70 mm[Hg] Maverick Nick MD Work Phone: [facility] 02-21-2024 14:17-0400 Heart rate 83 /min Maverick Nick MD Work Phone: [facility] 02-21-2024 14:17-0400 Systolic blood pressure 124 mm[Hg] Maverick Nick MD Work Phone: [facility] 02-14-2024 14:11-0400 Diastolic blood pressure 86 mm[Hg] Lucila SWEENEY Work Phone: [facility] 02-14-2024 14:11-0400 Heart rate 80 /min Lucila SWEENEY Work Phone: [facility] 02-14-2024 14:11-0400 Respiratory rate 18 /min Lucila SWEENEY Work Phone: [facility] 02-14-2024 14:11-0400 SaO2% (BldA) [Mass fraction] 97 % Lucila SWEENEY Work Phone: [facility] 02-14-2024 14:11-0400 Systolic blood pressure 136 mm[Hg] Lucila SWEENEY Work Phone: [facility] 02-14-2024 11:15-0400 Body height 162.6 cm Maverick Nick MD Work Phone: [facility] 02-14-2024 11:15-0400 Body mass index (BMI) [Ratio] 41.57 kg/m2 Maverick Nick MD Work Phone: [facility] 02-14-2024 11:15-0400 Body weight 109.86 kg Maverick Nick MD Work Phone: [facility] 01-13-2024 09:40-0400 Body height 162.6 cm [facility] 1 [facility] 01-13-2024 09:40-0400 Body mass index (BMI) [Ratio] 41.2 kg/m2 [facility] 1 [facility] 01-13-2024 09:40-0400 Body weight 108.86 kg [facility] 1 [facility] 01-10-2024 08:55-0400 Body height 162.6 cm Maverick Nick MD Work Phone: [facility] 01-10-2024 08:55-0400 Body mass index (BMI) [Ratio] 42.67 kg/m2 Maverick Nick MD Work Phone: [facility] 01-10-2024 08:55-0400 Body weight 112.76 kg Maverick Nick MD Work Phone: [facility] 01-10-2024 08:55-0400 Diastolic blood pressure 91 mm[Hg] Maverick Nick MD Work Phone: [facility] 01-10-2024 08:55-0400 Heart rate 71 /min Maverick Nick MD Work Phone: [facility] 01-10-2024 08:55-0400 Systolic blood pressure 156 mm[Hg] Maverick Nick MD Work Phone: [facility] 01-09-2024 10:26-0400 Body height 162.56 cm [facility] 01-09-2024 10:26-0400 Body mass index (BMI) [Ratio] 42 kg/m2 [facility] 01-09-2024 10:26-0400 Body weight 111.13 kg [facility] 01-09-2024 10:26-0400 Diastolic blood pressure 60 mm[Hg] [facility] 01-09-2024 10:26-0400 Heart rate 45 /min [facility] 01-09-2024 10:26-0400 Systolic blood pressure 115 mm[Hg] [facility] 01-05-2024 09:16-0400 Body height 162.6 cm Lucila Verdugo PA Work Phone: [facility] 01-05-2024 09:16-0400 Body mass index (BMI) [Ratio] 42.4 kg/m2 Lucila Verdugo PA Work Phone: [facility] 01-05-2024 09:16-0400 Body weight 112.04 kg Lucila Verdugo PA Work Phone: [facility] 01-05-2024 09:16-0400 Diastolic blood pressure 94 mm[Hg] Lucila Verdugo PA Work Phone: [facility] 01-05-2024 09:16-0400 Heart rate 63 /min Lucila Verdugo PA Work Phone: [facility] 01-05-2024 09:16-0400 Respiratory rate 18 /min Lucila Verdugo PA Work Phone: [facility] 01-05-2024 09:16-0400 SaO2% (BldA) [Mass fraction] 100 % Lucila Verdugo PA Work Phone: [facility] 01-05-2024 09:16-0400 Systolic blood pressure 149 mm[Hg] Lucila Verdugo PA Work Phone: [facility] 12-27-2023 08:50-0400 Body height 163.8 cm Benjamin Stein ARBORIST-JUNIOR PROGRAMMER ANALYST Work Phone: [facility] 12-27-2023 08:50-0400 Body mass index (BMI) [Ratio] 39.73 kg/m2 Benjamin Stein ARBORIST-JUNIOR PROGRAMMER ANALYST Work Phone: [facility] 12-27-2023 08:50-0400 Body weight 106.59 kg Benjamin Stein ARBORIST-JUNIOR PROGRAMMER ANALYST Work Phone: [facility] 12-27-2023 08:50-0400 Diastolic blood pressure 84 mm[Hg] Benjamin Stein ARBORIST-JUNIOR PROGRAMMER ANALYST Work Phone: [facility] 12-27-2023 08:50-0400 Heart rate 76 /min Benjamin Stein ARBORIST-JUNIOR PROGRAMMER ANALYST Work Phone: [facility] 12-27-2023 08:50-0400 Systolic blood pressure 140 mm[Hg] Benjamin Stein ARBORIST-JUNIOR PROGRAMMER ANALYST Work Phone: [facility] 12-06-2023 13:54-0400 Body height 163.8 cm Maverick Nick MD Work Phone: [facility] 12-06-2023 13:54-0400 Body mass index (BMI) [Ratio] 41.44 kg/m2 Maverick Nick MD Work Phone: [facility] 12-06-2023 13:54-0400 Body weight 111.22 kg Maverick Nick MD Work Phone: [facility] 12-06-2023 13:54-0400 Diastolic blood pressure 98 mm[Hg] Maverick Nick MD Work Phone: [facility] 12-06-2023 13:54-0400 Systolic blood pressure 152 mm[Hg] Maverick Nick MD Work Phone: [facility] 11-24-2023 15:09-0400 Body height 163.8 cm Justina Valdez MD Work Phone: [facility] 11-24-2023 15:09-0400 Body mass index (BMI) [Ratio] 41.15 kg/m2 Justina Valdez MD Work Phone: [facility] 11-24-2023 15:09-0400 Body temperature 98.01 [degF] Justina Valdez MD Work Phone: [facility] 11-24-2023 15:09-0400 Body weight 110.45 kg Justina Valdez MD Work Phone: [facility] 11-24-2023 15:09-0400 Diastolic blood pressure 80 mm[Hg] Justina Valdez MD Work Phone: [facility] 11-24-2023 15:09-0400 Heart rate 88 /min Justina Valdez MD Work Phone: [facility] 11-24-2023 15:09-0400 Respiratory rate 16 /min Justina Valdez MD Work Phone: [facility] 11-24-2023 15:09-0400 Systolic blood pressure 144 mm[Hg] Justina Valdez MD Work Phone: [facility] 11-18-2023 08:47-0400 Body height 163.8 cm Justina Valdez MD Work Phone: [facility] 11-18-2023 08:47-0400 Body mass index (BMI) [Ratio] 40.9 kg/m2 Justina Valdez MD Work Phone: [facility] 11-18-2023 08:47-0400 Body temperature 99.61 [degF] Justina Valdez MD Work Phone: [facility] 11-18-2023 08:47-0400 Body weight 109.77 kg Justina Valdez MD Work Phone: [facility] 11-18-2023 08:47-0400 Diastolic blood pressure 80 mm[Hg] Justina Valdez MD Work Phone: [facility] 11-18-2023 08:47-0400 Heart rate 88 /min Justina Valdez MD Work Phone: [facility] 11-18-2023 08:47-0400 Respiratory rate 16 /min Justina Valdez MD Work Phone: [facility] 11-18-2023 08:47-0400 Systolic blood pressure 142 mm[Hg] Justina Valdez MD Work Phone: [facility] 11-09-2023 15:24-0400 Body height 163.8 cm Justina Valdez MD Work Phone: [facility] 11-09-2023 15:24-0400 Body mass index (BMI) [Ratio] 42.25 kg/m2 Justina Valdez MD Work Phone: [facility] 11-09-2023 15:24-0400 Body temperature 98.8 [degF] Justina Valdez MD Work Phone: [facility] 11-09-2023 15:24-0400 Body weight 113.4 kg Justina Valdez MD Work Phone: [facility] 11-09-2023 15:24-0400 Diastolic blood pressure 80 mm[Hg] Justina Valdez MD Work Phone: [facility] 11-09-2023 15:24-0400 Heart rate 80 /min Justina Valdez MD Work Phone: [facility] 11-09-2023 15:24-0400 Respiratory rate 16 /min Justina Valdez MD Work Phone: [facility] 11-09-2023 15:24-0400 Systolic blood pressure 158 mm[Hg] Justina Valdez MD Work Phone: [facility] 09-29-2023 15:49-0500 Body height 163.8 cm Justina Valdez MD Work Phone: [facility] 09-29-2023 15:49-0500 Body mass index (BMI) [Ratio] 42.25 kg/m2 Justina Valdez MD Work Phone: [facility] 09-29-2023 15:49-0500 Body weight 113.4 kg Justina Valdez MD Work Phone: [facility] 09-29-2023 15:49-0500 Diastolic blood pressure 84 mm[Hg] Justina Valdez MD Work Phone: [facility] 09-29-2023 15:49-0500 Heart rate 80 /min Justina Valdez MD Work Phone: [facility] 09-29-2023 15:49-0500 Respiratory rate 16 /min [facility] 09-29-2023 15:49-0500 Systolic blood pressure 138 mm[Hg] Just[facility] 09-02-2023 08:09-0500 Body height 163.8 cm Just[facility] 09-02-2023 08:09-0500 Body mass index (BMI) [Ratio] 42.17 kg/m2 Justina Valdez MD Work Phone: [facility] 09-02-2023 08:09-0500 Body weight 113.17 kg Just[facility] 09-02-2023 08:09-0500 Diastolic blood pressure 80 mm[Hg] Just[facility] 09-02-2023 08:09-0500 Heart rate 80 /min Justina Valdez MD Work Phone: [facility] 09-02-2023 08:09-0500 Respiratory rate 16 /min Justina Valdez MD Work Phone: [facility] 09-02-2023 08:09-0500 Systolic blood pressure 140 mm[Hg] Justina Valdez MD Work Phone: [facility] 09-09-2022 16:50-0500 Body height 162.56 cm María Hager Other [employer] Other 09-09-2022 16:50-0500 Body temperature 99 [degF] María Hager Other [employer] Other 09-09-2022 16:50-0500 SaO2% (BldA) [Mass fraction] 98 % María Hager Other [employer] Other 05-16-2021 11:00-0400 Body height 162.56 cm Yesica Ginty Other [employer] Other 05-16-2021 11:00-0400 Body mass index (BMI) [Ratio] 37.76 kg/m2 Yesica Ginty Other [employer] Other 05-16-2021 11:00-0400 Body temperature 97.1 [degF] Yesica Ginty Other [employer] Other 05-16-2021 11:00-0400 Body weight 99.79 kg Yesica Ginty Other [employer] Other 05-16-2021 11:00-0400 SaO2% (BldA) [Mass fraction] 96 % Yesica Ginty Other [employer] Other Encounters Encounter Date Encounter Type Care Provider Facility Start: 01-10-2025 End: 01-10-2025 Office outpatient visit 10 minutes Benjamin Stein ARBORIST-JUNIOR PROGRAMMER ANALYST Work Phone: [facility] Comment on above: Status post lumbar l aminectomy (Primary Dx); Acute midline low back pain without sciatica; Bowel dysfunction; Lumbar spondylosis Start: 01-08-2025 End: 01-08-2025 Orders Only Erin Niño ONCOLOGY RN [facility] Comment on above: Back pain, unspecifi ed back location, unspecified back pain laterality, unspecified chronicity (Primary Dx) Start: 01-07-2025 End: 01-07-2025 Office outpatient visit 25 minutes Daina Bailey ARBORIST-JUNIOR PROGRAMMER ANALYST Work Phone: [facility] Comment on above: Lumbar spondylosis ( Primary Dx) Start: 01-07-2025 End: 01-07-2025 ambulatory [facility] Start: 10-29-2024 End: 10-29-2024 Office outpatient visit 15 minutes Daina Bailey ARBORIST-JUNIOR PROGRAMMER ANALYST Work Phone: [facility] Comment on above: Bronchitis (Primary Dx) Start: 10-29-2024 End: 10-29-2024 ambulatory [facility] Start: 10-22-2024 End: 10-22-2024 Office outpatient visit 15 minutes Daina Bailey ARBORIST-JUNIOR PROGRAMMER ANALYST Work Phone: [facility] Comment on above: Bronchitis Start: 10-22-2024 End: 10-22-2024 ambulatory [facility] Start: 10-08-2024 End: 10-08-2024 Office outpatient visit 25 minutes Daina Bailey ARBORIST-JUNIOR PROGRAMMER ANALYST Work Phone: [facility] Comment on above: Bronchitis (Primary Dx) Start: 10-08-2024 End: 10-08-2024 ambulatory [facility] Start: 09-24-2024 End: 09-24-2024 Office outpatient visit 15 minutes Benjamin Stein ARBORIST-JUNIOR PROGRAMMER ANALYST Work Phone: [facility] Comment on above: Status post lumbar l aminectomy (Primary Dx) Start: 09-24-2024 End: 09-24-2024 ambulatory BENJAMIN [facility] Start: 09-17-2024 End: 09-17-2024 ambulatory [facility] Work Phone: Start: 09-17-2024 End: 09-17-2024 Patient encounter procedure [facility] Work Phone: Start: 08-27-2024 ambulatory BENJAMIN STEIN [facility] Start: 07-26-2024 ambulatory BENJAMIN STEIN [facility] Start: 06-26-2024 ambulatory BENJAMIN STEIN [facility] Start: 06-25-2024 End: 06-25-2024 Postop follow up visit related to original px Benjamin Stein ARBORIST-JUNIOR PROGRAMMER ANALYST Work Phone: [facility] Comment on above: Status post lumbar l aminectomy (Primary Dx); Muscle spasm of back Start: 06-25-2024 End: 06-25-2024 ambulatory BENJAMIN [facility] Start: 05-15-2024 End: 05-16-2024 ambulatory [facility] Start: 05-15-2024 End: 05-16-2024 Subsequent hospital visit by physician Brian Girard MD Work Phone: [facility] - [facility] Comment on above: Spinal stenosis of l umbar region with neurogenic claudication (Primary Dx); Lumbar radiculopathy; Lumbar herniated disc Start: 05-08-2024 End: 05-08-2024 Office outpatient visit 15 minutes Justina Valdez MD Work Phone: [facility] Comment on above: Other acute sinusiti s, recurrence not specified (Primary Dx) Start: 05-08-2024 End: 05-08-2024 ambulatory JUSTINA Feliciano [facility] Start: 05-03-2024 End: 05-03-2024 Telephone encounter Annamaria Mata LPN [facility] Comment on above: steroid injections Start: 05-03-2024 End: 05-03-2024 Patient encounter procedure [facility] [address] [facility] Comment on above: Lumbar radiculopathy ; Lumbar herniated disc Start: 05-03-2024 End: 05-03-2024 ambulatory [facility] Start: 05-01-2024 End: 05-01-2024 Postop follow up visit related to original px Maverick Nick MD Work Phone: [facility] Comment on above: Status post laparosc opic colectomy (Primary Dx) Start: 05-01-2024 End: 05-01-2024 [facility] Start: 04-25-2024 End: 04-26-2024 Refill Natasha Wilson RN [facility] Comment on above: Lumbosacral spondylo sis without myelopathy (Primary Dx) Start: 04-17-2024 End: 04-17-2024 Telephone encounter Jennifer Patel CMA [facility] Start: 04-12-2024 End: 04-12-2024 ambulatory [facility] Start: 04-12-2024 Encounter for other preprocedural examination [facility] Start: 04-12-2024 End: 04-12-2024 Office outpatient visit 25 minutes Brian Girard MD Work Phone: [facility] Comment on above: Lumbar radiculopathy (Primary Dx); Pre-op testing Start: 04-12-2024 End: 04-12-2024 Patient encounter status Brian Girard MD Work Phone: [facility] Start: 04-12-2024 End: 04-12-2024 ambulatory [facility] Start: 04-12-2024 Encounter for other preprocedural examination [facility] Start: 04-09-2024 End: 04-09-2024 Emergency department patient visit [facility] Start: 04-09-2024 End: 04-09-2024 Office outpatient visit 15 minutes Justina Valdez MD Work Phone: [facility] Comment on above: Lumbar spondylosis ( Primary Dx); Bulging lumbar disc; Displacement of left side of L4-L5 intervertebral disc Start: 04-09-2024 End: 04-09-2024 ambulatory [facility] Start: 04-06-2024 End: 04-07-2024 Emergency department patient visit ANALIA WEINSTEIN [facility] Start: 04-06-2024 End: 04-06-2024 Emergency department patient visit JUSTINA Jodie [facility] Start: 04-06-2024 End: 04-12-2024 Telephone encounter Rossana Bruno RN [facility] Comment on above: Pain Start: 04-05-2024 End: 04-05-2024 ambulatory LUCILA Antonio LUCINA [facility] Start: 04-05-2024 End: 04-05-2024 Office outpatient visit 25 minutes Lucila Antonio Lucina PA Work Phone: [facility] Comment on above: Disorder of sacrum ( Primary Dx) Start: 04-03-2024 End: 04-03-[address] [facility] Start: 04-02-2024 End: 04-02-2024 Telephone encounter Jennifer Patel [facility] Start: 03-20-2024 End: 03-21-2024 Telephone encounter Emma Stroud [facility] Start: 03-19-2024 End: 03-19-2024 Postop follow up visit related to original px Maverick Nick MD Work Phone: [facility] Comment on above: Post-op pain Start: 03-19-2024 End: 03-19-2024 [facility] Start: 03-14-2024 End: 03-14-2024 Office outpatient visit 15 minutes Justina Valdez MD Work Phone: [facility] Comment on above: Other acute sinusiti s, recurrence not specified (Primary Dx) Start: 03-14-2024 End: 03-14-2024 Orders Only Justina Valdez MD Work Phone: [facility] Start: 03-13-2024 End: 03-13-2024 ambulatory JUSTINA VALDEZ [facility] Start: 03-13-2024 Encounter for genera l adult medical examination without abnormal findings [facility] Start: 03-08-2024 End: 03-08-2024 ambulatory JUSTINA Feliciano [facility] Start: 03-08-2024 End: 03-08-2024 Patient encounter status Justina Valdez MD Work Phone: [facility] Work Phone: Start: 03-08-2024 End: 03-08-2024 Periodic preventive med est patient 40-64yrs Justina Valdez MD Work Phone: [facility] Comment on above: Routine general medi sania examination at a health care facility (Primary Dx) Start: 02-27-2024 End: 02-27-2024 Telephone encounter Emma Stroud [facility] Start: 02-25-2024 End: 02-25-2024 Orders Only Maverick Nick MD Work Phone: [facility] Comment on above: Post-op pain (Primar y Dx) Start: 02-24-2024 End: 02-24-2024 ambulatory Analia Mendez RN [facility] Start: 02-21-2024 End: 02-21-2024 Postop follow up visit related to original px Maverick Nick MD Work Phone: [facility] Comment on above: Status post laparosc opic colectomy (Primary Dx) Start: 02-21-2024 End: 02-21-[address] [facility] Start: 02-15-2024 End: 02-15-2024 ambulatory [facility] Start: 02-14-2024 End: 02-14-2024 Office outpatient visit 15 minutes Lucila SWEENEY Work Phone: [facility] Comment on above: Lumbar spondylosis ( Primary Dx) Start: 02-14-2024 End: 02-14-2024 ambulatory LUCILA VERDUGO [facility] Start: 02-14-2024 End: 02-14-2024 Postop follow up visit related to original px Maverick Nick MD Work Phone: [facility] Comment on above: Status post laparosc opic colectomy (Primary Dx); Postoperative abdominal pain Start: 02-14-2024 End: 02-14-[address] [facility] Start: 02-01-2024 End: 02-01-2024 Evaluation and management of inpatient JUSTINA KERN [facility] Start: 01-30-2024 Preprocedural examination done Lucila SWEENEY Work Phone: [facility] Work Phone: Start: 01-30-2024 Encounter for other preprocedural examination [facility] Start: 01-30-2024 End: 02-01-2024 Evaluation and management of inpatient [facility] Start: 01-29-2024 End: 01-29-2024 ambulatory Zee Roberson RN [facility] [address] Start: 01-25-2024 End: 02-23-2024 ambulatory BENJAMIN STEIN [facility] Start: 01-20-2024 End: 01-20-2024 ambulatory [facility] Start: 01-20-2024 End: 01-20-2024 ambulatory SIMEON Gonzalez JOE [facility] Start: 01-13-2024 End: 01-13-2024 Patient encounter procedure [facility] Pre-Admission Testing 1 [facility] Start: 01-13-2024 End: 01-13-2024 ambulatory [facility] Start: 01-10-2024 End: 01-10-2024 Office outpatient visit 25 minutes Maverick Nick MD Work Phone: [facility] Comment on above: Diverticulitis large intestine w/o perforation or abscess w/o bleeding (Primary Dx) Start: 01-09-2024 End: 01-09-2024 ambulatory [facility] Work Phone: Start: 01-09-2024 End: 01-09-2024 Patient encounter procedure [facility] Work Phone: Start: 01-05-2024 End: 01-05-2024 Office outpatient new 30 minutes Lucila SWEENEY Work Phone: [facility] Comment on above: Disorder of sacrum ( Primary Dx); Chronic midline low back pain with left-sided sciatica; Bulging lumbar disc; Lumbar foraminal stenosis Start: 01-05-2024 End: 01-05-2024 ambulatory LUCILA VERDUGO [facility] Start: 01-05-2024 End: 01-05-2024 Evaluation and management of inpatient ANGIE SWIFT [facility] Start: 01-04-2024 End: 01-05-2024 Evaluation and management of inpatient [facility] Start: 01-04-2024 End: 01-04-2024 Evaluation and management of inpatient [facility] Start: 12-28-2023 End: 12-28-2023 ambulatory [facility] Pat Phone Call Provider 1 [facility] Start: 12-28-2023 End: 12-28-2023 ambulatory JUSTINA VALDEZ [facility] Start: 12-28-2023 End: 01-23-2024 ambulatory BENJAMIN STEIN [facility] Start: 12-27-2023 End: 12-27-2023 Office outpatient new 45 minutes Benjamin Stein ARBORIST-JUNIOR PROGRAMMER ANALYST Work Phone: [facility] Comment on above: Lumbar foraminal eliz nosis (Primary Dx); Chronic midline low back pain with left-sided sciatica; Bulging lumbar disc Start: 12-27-2023 End: 12-27-2023 [facility] Start: 12-13-2023 End: 12-13-2023 Orders Only Justina Valdez MD Work Phone: [facility] Comment on above: Chronic midline low back pain with left-sided sciatica (Primary Dx) Low back pain, unspe cified back pain laterality, unspecified chronicity, unspecified whether sciatica present (Primary Dx) Start: 12-09-2023 End: 12-09-2023 ambulatory JUSTINA VALDEZ [facility] Start: 12-06-2023 End: 12-06-2023 Office outpatient visit 15 minutes Maverick Nick MD Work Phone: [facility] Comment on above: Diverticulitis (Prim adrienne Dx) Start: 11-28-2023 End: 11-28-2023 Telephone encounter Justina Valdez MD Work Phone: [facility] Start: 11-24-2023 End: 11-24-2023 ambulatory JUSTINA VALDEZ [facility] Start: 11-24-2023 End: 11-24-2023 Transitional care manage srvc 7 day discharge Justina Valdez MD Work Phone: [facility] Comment on above: Diverticular disease (Primary Dx); Lumbar degenerative disc disease Start: 11-18-2023 End: 11-22-2023 Telephone encounter Valeria Forrest CMA [facility] Start: 11-18-2023 End: 11-18-2023 Office outpatient visit 15 minutes Justina Valdez MD Work Phone: [facility] Comment on above: Diverticular disease (Primary Dx); Left lower quadrant abdominal pain Start: 11-17-2023 End: 11-17-2023 Telephone encounter Valeria Forrest CMA [facility] Start: 11-16-2023 End: 11-16-2023 Telephone encounter Valeria Forrest CMA [facility] Start: 11-09-2023 End: 11-09-2023 Office outpatient visit 25 minutes Justina Valdez MD Work Phone: [facility] Comment on above: Diverticular disease (Primary Dx) Start: 09-29-2023 End: 09-29-2023 Office outpatient visit 15 minutes Justina Valdez MD Work Phone: [facility] [facility] Comment on above: TOS (thoracic outlet syndrome) (Primary Dx) Start: 09-02-2023 End: 09-02-2023 Office outpatient visit 15 minutes Justina Valdez MD Work Phone: [facility] Comment on above: Lumbar degenerative disc disease (Primary Dx) Start: 09-09-2022 End: 09-09-2022 ambulatory María Hager Other [employer] Other Start: 09-09-2022 Office outpatient vi sit 15 minutes María Hager [facility] Start: 07-19-[address] SERVANDO SCHAEFFER Fac ility:[facility]1 Start: 06-22-2022 End: 06-23-[address] SERVANDO SCHAEFFER Facility:[facility] Start: 02-02-2022 End: 02-03-[address] SERA HINOJOSA Facility:[facility] Start: 12-15-2021 End: 12-16-2021 ambulatory PHILIP ELENA Facility:[facility] Start: 05-21-2021 Telephone encounter Yesica Sunshine [facility] Start: 05-16-2021 Office outpatient vi sit 15 minutes Yesica Sunshine [facility] Procedures Date Procedure Procedure Detail Performing Clinician Start: 01-07-2025 Adult depression screening assessment Daina Bailey ARBORIST-JUNIOR PROGRAMMER ANALYST Work Phone: Start: 05-15-2024 Fluoroscopy up to 1 hour physician/qhp time Brian Girard MD Work Phone: Start: 05-15-2024 REPEATED DONI Girard MD Work Phone: Start: 05-15-2024 Adult depression screening assessment Benjamin Stein ARBORIST-JUNIOR PROGRAMMER ANALYST Work Phone: Start: 05-08-2024 Adult depression screening assessment Justina Valdez MD Work Phone: Start: 05-03-2024 Antibody screen [facility] 1 0 Start: 05-03-2024 Blood typing serolog ic abo Brian Girard MD Work Phone: Start: 05-03-2024 REPEATED DONI Girard MD Work Phone: Start: 05-03-2024 Basic metabolic pane l calcium total Brian Girard MD Work Phone: Start: 05-03-2024 Culture bacterial quanttative colony count urine Brian Girard MD Work Phone: Start: 05-03-2024 Urnls dip stick/tabl et rgnt auto w/o microscopy Brian Girard MD Work Phone: Start: 04-09-2024 Adult depression screening assessment Justina Valdez MD Work Phone: Start: 03-14-2024 Adult depression screening assessment Justina Valdez MD Work Phone: Start: 03-08-2024 Adult depression screening assessment Justina Valdez MD Work Phone: Start: 02-21-2024 Follow-up visit Follow-up CHRIS NICK Start: 01-04-2024 Colonoscopy [facility] 1 Start: 11-24-2023 Adult depression screening assessment Justina Valdez MD Work Phone: Start: 11-18-2023 Adult depression screening assessment Justina Valdez MD Work Phone: Start: 11-09-2023 Adult depression screening assessment Justina Valdez MD Work Phone: Start: 10-19-2023 Mammography Justina gautam MD Work Phone: Start: 09-29-2023 Adult depression screening assessment Justina Valdez MD Work Phone: Start: 09-02-2023 Adult depression screening assessment Justina Valdez MD Work Phone: Throat culture Yesica Ginty Other Plan of Treatment Date Care Activity Detail Author Start: 01-03-2034 Screening for malign ant neoplasm of colon Colonoscopy [facility] Start: 03-29-2027 DTaP,Tdap and Td Vaccines (2 - Td or Tdap) DTaP,Tdap and Td Vaccines (2 - Td or Tdap) [facility] Start: 01-10-2026 Adult BMI Screening Adult BMI Screen ing [facility] Start: 01-10-2026 Tobacco Screening Tobacco Screening [facility] Start: 01-07-2026 Adult BMI Follow Up Plan Adult BMI Follow Up Plan [facility] Start: 01-07-2026 Adult BMI Screening Adult BMI Screen ing [facility] Start: 01-07-2026 Depression Screening Depression Scre ening [facility] Start: 01-07-2026 Tobacco Screening Tobacco Screening [facility] Start: 10-29-2025 Adult BMI Follow Up Plan Adult BMI Follow Up Plan [facility] Start: 10-29-2025 Adult BMI Screening Adult BMI Screen ing [facility] Start: 10-22-2025 Adult BMI Screening Adult BMI Screen ing [facility] Start: 10-22-2025 Tobacco Screening Tobacco Screening [facility] Start: 10-08-2025 Adult BMI Follow Up Plan Adult BMI Follow Up Plan [facility] Start: 10-08-2025 Adult BMI Screening Adult BMI Screen ing [facility] Start: 10-08-2025 Tobacco Screening Tobacco Screening [facility] Start: 09-24-2025 Tobacco Screening Tobacco Screening [facility] Start: 06-25-2025 Adult BMI Screening Adult BMI Screen ing [facility] Start: 05-15-2025 Depression Screening Depression Scre ening [facility] Start: 05-15-2025 Tobacco Screening Tobacco Screening [facility] Start: 05-08-2025 Depression Screening Depression Scre ening [facility] Start: 05-08-2025 Tobacco Screening Tobacco Screening [facility] Start: 05-03-2025 Adult BMI Screening Adult BMI Screen ing [facility] Start: 05-03-2025 Tobacco Screening Tobacco Screening [facility] Start: 05-01-2025 Adult BMI Screening Adult BMI Screen ing [facility] Start: 05-01-2025 Tobacco Screening Tobacco Screening [facility] Start: 04-12-2025 Adult BMI Screening Adult BMI Screen ing [facility] Start: 04-12-2025 Tobacco Screening Tobacco Screening [facility] Start: 04-09-2025 Adult BMI Screening Adult BMI Screen ing [facility] Start: 04-09-2025 Depression Screening Depression Scre ening [facility] Start: 04-09-2025 Tobacco Screening Tobacco Screening [facility] Start: 04-05-2025 Adult BMI Screening Adult BMI Screen ing [facility] Start: 04-05-2025 Tobacco Screening Tobacco Screening [facility] Start: 03-25-2025 Influenza vaccination Influenza Vacc ine [facility] Start: 03-19-2025 Adult BMI Screening Adult BMI Screen ing [facility] Start: 03-19-2025 Tobacco Screening Tobacco Screening [facility] Start: 03-14-2025 Adult BMI Screening Adult BMI Screen ing [facility] Start: 03-14-2025 Depression Screening Depression Scre ening [facility] Start: 03-14-2025 Tobacco Screening Tobacco Screening [facility] Start: 03-12-2025 End: 03-12-2025 Patient encounter procedure 03/12/2025 8:00 AM EDT Office Visit [facility] [address] [place] [phone] Daina Bailey, ARBORIST-JUNIOR PROGRAMMER ANALYST [address] [place] [address] [facility] Start: 03-08-2025 Adult BMI Screening Adult BMI Screen ing [facility] Start: 03-08-2025 Depression Screening Depression Scre ening [facility] Start: 03-08-2025 Tobacco Screening Tobacco Screening [facility] Start: 02-20-2025 Adult BMI Screening Adult BMI Screen ing [facility] Start: 02-20-2025 Tobacco Screening Tobacco Screening [facility] Start: 02-13-2025 Adult BMI Screening Adult BMI Screen ing [facility] Start: 02-13-2025 Tobacco Screening Tobacco Screening [facility] Start: 02-05-2025 End: 02-05-2025 Patient encounter procedure 02/05/2025 6:45 AM EDT Appointment [facility] [address] [place] [phone] [facility] Start: 01-19-2025 Tobacco Screening Tobacco Screening [facility] Start: 01-12-2025 Adult BMI Screening Adult BMI Screen ing [facility] Start: 01-10-2025 End: 01-10-2025 Patient encounter procedure 01/10/2025 2:30 PM EDT Office Visit [facility] [address] [place] [address] Flor Coppola, ARBORIST-JUNIOR PROGRAMMER ANALYST [address] [place] [address] [facility] Start: 01-09-2025 Adult BMI Screening Adult BMI Screen ing [facility] Start: 01-09-2025 Tobacco Screening Tobacco Screening [facility] Start: 01-08-2025 End: 01-08-2026 XR Lumbar spine Views W flexion and W extension X-ray spine lumbar ap, lateral, flexion and extension only Imaging Routine Back pain, unspecified back location, unspecified back pain laterality, unspecified chronicity Expected: 01/08/2025, Expires: 01/08/2026 [email or web address] Work Phone: Comment on above: Expected: 01/08/2025 , Expires: 01/08/2026 Start: 01-04-2025 Adult BMI Screening Adult BMI Screen ing [facility] Start: 01-04-2025 Tobacco Screening Tobacco Screening [facility] Start: 12-27-2024 Tobacco Screening Tobacco Screening [facility] Start: 12-26-2024 Adult BMI Screening Adult BMI Screen ing [facility] Start: 12-26-2024 Tobacco Screening Tobacco Screening [facility] Start: 12-11-2024 Tobacco Screening Tobacco Screening [facility] Start: 12-05-2024 Adult BMI Screening Adult BMI Screen ing [facility] Start: 12-05-2024 Tobacco Screening Tobacco Screening [facility] Start: 11-23-2024 Adult BMI Screening Adult BMI Screen ing [facility] Start: 11-23-2024 Depression Screening Depression Scre ening [facility] Start: 11-23-2024 Tobacco Screening Tobacco Screening [facility] Start: 11-17-2024 Adult BMI Screening Adult BMI Screen ing [facility] Start: 11-17-2024 Depression Screening Depression Scre ening [facility] Start: 11-17-2024 Tobacco Screening Tobacco Screening [facility] Start: 11-08-2024 Adult BMI Screening Adult BMI Screen ing [facility] Start: 11-08-2024 Depression Screening Depression Scre ening [facility] Start: 11-08-2024 Tobacco Screening Tobacco Screening [facility] Start: 10-29-2024 End: 10-29-2024 Patient encounter procedure 10/29/2024 11:15 AM EDT Office Visit [facility] [address] [place] [address] Daina Bailey, ARBORIST-JUNIOR PROGRAMMER ANALYST [address] [facility] [place] [address] [facility] Start: 10-22-2024 End: 10-22-2024 Patient encounter procedure 10/22/2024 11:15 AM EDT Office Visit [facility] [address] [facility] [place] [address] Daina Bailey, ARBORIST-JUNIOR PROGRAMMER ANALYST [address] [place] [address] [facility] Start: 10-18-2024 Adult BMI Screening Adult BMI Screen ing [facility] Start: 10-18-2024 Screening for malign ant neoplasm of breast Mammogram [facility] Start: 09-28-2024 Adult BMI Screening Adult BMI Screen ing [facility] Start: 09-28-2024 [facility] Start: 09-28-2024 Tobacco Screening Tobacco Screening [facility] Start: 09-25-2024 End: 09-25-2024 Patient encounter procedure 09/25/2024 7:00 AM EST Appointment [facility] [address] [place] [address] [place] [phone] [facility] Start: 09-24-2024 End: 09-24-2024 Patient encounter procedure 09/24/2024 8:30 AM EST Office Visit [facility] [address] [place] [phone] Benjamin Stein APRN-JUNIOR PROGRAMMER ANALYST [address] [facility] [address] [place], [place] [phone] [facility] Start: 09-02-2024 Depression Screening Depression Scre ening [facility] Start: 09-02-2024 Tobacco Screening Tobacco Screening [facility] Start: 06-27-2024 Adult BMI Screening Adult BMI Screen ing [facility] Start: 06-25-2024 End: 06-25-2024 Patient encounter procedure 06/25/2024 1:45 PM EST Office Visit [facility] [address] [place] [phone] Benjamin Stein APRN-JUNIOR PROGRAMMER ANALYST [address] [facility] [address] [place], [place] [phone] [facility] Start: 05-22-2024 End: 05-22-2024 Patient encounter procedure 05/22/2024 2:45 PM EDT Office Visit [facility] [address] [place] [address] Lucila Verdugo PA [address] [facility] [address] [place] [address] [facility] Start: 05-15-2024 End: 05-15-2024 Admission to same day surgery center 05/15/2024 3:30 PM EDT - 05/15/2024 5:30 PM EDT Surgery [facility] - Surgery [address] [place] [phone] Brian Girard MD [address] [facility] [address] [place] [phone] DECOMPRESSION LUMBAR LAMINOTOMY / L4/5 AND DISCECTOMY [facility] Surgery Comment on above: DECOMPRESSION LUMBAR LAMINOTOMY / L4/5 AND DISCECTOMY Start: 05-15-2024 End: 05-15-2024 DECOMPRESSION LUMBAR LAMINOTOMY DECOMPRESSION LUMBAR LAMINOTOMY Lumbar radiculopathy Lumbar herniated disc 05/15/2024 3:30 PM EDT [facility] Start: 05-15-2024 Subsequent hospital visit by physician 05/15/2024 3:30 PM EDT Hospital Encounter [facility] Surgery [address] [place] [phone] Brian Girard MD [address] [facility] [address] [place] [address] [facility] Start: 05-15-2024 End: 05-15-2024 Patient encounter procedure 05/15/2024 7:45 AM EDT Office Visit [facility] [address] [place] [phone] Lucila Verdugo PA [address] [facility], 2nd Floor [place], [place] [phone] [facility] Start: 05-04-2024 End: 05-04-2024 Admission to same day surgery center 05/04/2024 2:30 PM EDT - 05/04/2024 2:37 PM EDT Surgery [facility] Procedures [address] [place] [phone] Simeon Joe MD [address] [place] [address] INJECTION BLOCK SACROILIAC JOINT [65306 (CPT )] [facility] Comment on above: INJECTION BLOCK SACR OILIAC JOINT [33609 (CPT )] Start: 05-04-2024 End: 05-04-2024 Inject si joint arthrgrphy&/anes/steroid w/verónica INJECTION BLOCK SACROILIAC JOINT Disorder of sacrum 05/04/2024 2:30 PM EDT [facility] Start: 05-04-2024 Subsequent hospital visit by physician 05/04/2024 2:30 PM EDT Hospital Encounter [facility] [address] [place] [address] Simeon Joe MD [address] [place] [address] [facility] Start: 05-04-2024 End: 05-04-2024 Patient encounter procedure 05/04/2024 10:40 AM EDT Appointment [facility] [address] [place] [address] Simeon Joe MD [address] [place] [address] [facility] Start: 05-03-2024 End: 05-03-2024 Patient encounter procedure 05/03/2024 12:45 PM EDT Procedure visit [facility] On [address] [address] [facility] Start: 05-01-2024 End: 05-01-2024 Patient encounter procedure 05/01/2024 11:45 AM EDT Office Visit [facility] [address] [place] [phone] Maverick Nick MD [address] [place] [phone] [facility] Start: 04-27-2024 End: 04-27-2024 Admission to same day surgery center 04/27/2024 9:52 AM EDT - 04/27/2024 9:59 AM EDT Surgery [facility] [address] [place] [phone] Simeon Joe MD [address] [place], [place] [phone] INJECTION BLOCK SACROILIAC JOINT [12699 (CPT )] [facility] Comment on above: INJECTION BLOCK SACR OILIAC JOINT [96862 (CPT )] Start: 04-27-2024 End: 04-27-2024 Inject si joint arthrgrphy&/anes/steroid w/verónica INJECTION BLOCK SACROILIAC JOINT Disorder of sacrum 04/27/2024 9:52 AM EDT [facility] Start: 04-27-2024 Subsequent hospital visit by physician [facility] Start: 04-12-2024 End: 04-12-2024 Patient encounter procedure 04/12/2024 10:15 AM EDT Office Visit [facility] [address] [place] [phone] Brian Girard MD [address] [place] [address] [address] [place] [phone] [facility] Start: 04-05-2024 End: 04-05-2024 Patient encounter procedure 04/05/2024 7:45 AM EDT Office Visit [facility] [address] [place] [address] Lucila Verdugo PA [address] [place], [place] [phone] [facility] Start: 03-25-2024 Influenza vaccination Influenza Vacc ine [facility] Start: 03-19-2024 End: 03-19-2024 Patient encounter procedure 03/19/2024 11:00 AM EDT Office Visit [facility] [address] [place] [phone] Maverick Nick MD [address] [place] [phone] [facility] Start: 03-14-2024 End: 03-14-2024 Patient encounter procedure 03/14/2024 4:00 PM EDT Office Visit [facility] [address] [place] [address] Justina Valdez MD [address] [facility] [place], [place] [phone] [facility] Start: 03-08-2024 End: 03-08-2025 CBC W Auto Differential panel - Blood CBC auto differential Lab Routine Routine general medical examination at a health care facility Expected: 03/08/2024, Expires: 03/08/2025 [facility] Work Phone: Comment on above: Expected: 03/08/2024 , Expires: 03/08/2025 Start: 03-08-2024 End: 03-08-2025 Comprehensive metabolic 2000 panel - Serum or Plasma Comprehensive metabolic panel Lab Routine Routine general medical examination at a health care facility Expected: 03/08/2024, Expires: 03/08/2025 [facility] Comment on above: Expected: 03/08/2024 , Expires: 03/08/2025 Start: 03-08-2024 End: 03-08-2025 Lipid 1996 panel - Serum or Plasma Lipid profile Lab Routine Routine general medical examination at a health care facility Expected: 03/08/2024, Expires: 03/08/2025 [facility] Comment on above: Expected: 03/08/2024 , Expires: 03/08/2025 Start: 03-08-2024 End: 03-08-2025 Thyroid profile includes TSH FT4 Thyroid profile includes TSH FT4 Lab Routine Routine general medical examination at a health care facility Expected: 03/08/2024, Expires: 03/08/2025 [facility] Comment on above: Expected: 03/08/2024 , Expires: 03/08/2025 Start: 03-08-2024 End: 03-08-2025 Vitamin D 25 hydroxy Vitamin D 25 hydroxy Lab Routine Routine general medical examination at a health care facility Expected: 03/08/2024, Expires: 03/08/2025 [facility] Comment on above: Expected: 03/08/2024 , Expires: 03/08/2025 Start: 03-06-2024 End: 03-06-2024 Patient encounter procedure 03/06/2024 4:15 PM EDT Office Visit [facility] [address] [place] [phone] Justina Valdez MD [address] [place], [place] [phone] [facility] Start: 02-14-2024 End: 02-14-2024 Patient encounter procedure 02/14/2024 2:00 PM EDT Office Visit [facility] [address] [place] [phone] Lucila Verdugo, PA [address] [facility] [address] [place] [address] [facility] Start: 01-30-2024 End: 01-30-2024 Admission to same day surgery center 01/30/2024 8:00 AM EDT - 01/30/2024 1:00 PM EDT Surgery [facility] [address] [place] [address] Maverick Nick MD [address] [place] [phone] DAVINCI COLECTOMY SIGMOID [53540 (CPT )] [facility] Comment on above: DAVINCI COLECTOMY SI GMOID [92046 (CPT )] Start: 01-30-2024 End: 01-30-2024 Anesthesia consultation 01/30/2024 8:00 AM EDT Anesthesia Event [facility] [address] [place] [address] Justina Kern MD [address] [place] [address] [facility] Start: 01-30-2024 End: 01-30-2024 Laparoscopy colectomy partial w/anastomosis DAVINCI COLECTOMY SIGMOID diverticulitis 01/30/2024 8:00 AM EDT [facility] Start: 01-30-2024 Subsequent hospital visit by physician [facility] Comment on above: Preop examination (P rimary Dx) Start: 01-20-2024 End: 01-20-2024 Admission to same day surgery center [facility] Comment on above: INJECTION BLOCK SACR OILIAC JOINT [25566 (CPT )] Start: 01-20-2024 End: 01-20-2024 Inject si joint arthrgrphy&/anes/steroid w/verónica [facility] Start: 01-20-2024 Subsequent hospital visit by physician [facility] Start: 01-17-2024 End: 01-17-2024 Patient encounter procedure 01/17/2024 10:00 AM EDT Office Visit [facility] [address] [place] [phone] Maverick Nick MD [address] [place] [phone] [facility] Start: 01-13-2024 End: 01-13-2024 Patient encounter procedure 01/13/2024 9:45 AM EDT Procedure visit [facility] Pre Admit [address] [place] [phone] [facility] Start: 01-10-2024 End: 01-10-2024 Patient encounter procedure 01/10/2024 9:00 AM EDT Office Visit [facility] General [facility] [address] [facility] [address] Maverick Nick MD [address] [facility] [place] [address] [facility] Surgery Start: 01-06-2024 End: 01-06-2024 [facility] Comment on above: Arrived Lumbar degenerative disc disease; Chronic midline low back pain with left-sided sciatica; Bulging lumbar disc; Lumbar foraminal stenosis Start: 01-05-2024 End: 01-05-2024 Patient encounter procedure 01/05/2024 9:00 AM EDT Office Visit [facility] [address] [place] [phone] Lucila Verdugo PA [address], [address] [place] [address] [facility] Start: 01-04-2024 End: 01-04-2024 Admission to same day surgery center 01/04/2024 8:00 AM EDT - 01/04/2024 8:30 AM EDT Surgery [facility] [address] [place] [address] Maverick Nick MD [address] [place] [phone] COLONOSCOPY DIAGNOSTIC / SCREENING [76830 (CPT )] [facility] Comment on above: COLONOSCOPY DIAGNOST IC / SCREENING [34755 (CPT )] Start: 01-04-2024 End: 01-04-2024 Anesthesia consultation 01/04/2024 8:00 AM EDT Anesthesia Event [facility] Surgery [address] [place] [phone] Angie Swift, DO [address] [place] [address] [facility] Surgery Start: 01-04-2024 End: 01-04-2024 Colonoscopy flx dx w/collj spec when pfrmd COLONOSCOPY DIAGNOSTIC / SCREENING diverticulitis 01/04/2024 8:00 AM EDT [facility] Start: 01-04-2024 Subsequent hospital visit by physician 01/04/2024 8:00 AM EDT Hospital Encounter [facility] [address] [place] [address] Maverick Nick MD [address] [place] [address] [facility] Start: 12-28-2023 End: 12-28-2023 ambulatory 12/28/2023 4:20 PM EDT Support Visit [facility] Pre Ad[facility] [address] [place] [phone] [facility] Start: 12-27-2023 End: 12-27-2023 Patient encounter procedure 12/27/2023 8:45 AM EDT [facility] [address] [place] [phone] Brian Girard MD [address] [place] [address] [address] [place] [phone] [facility] Start: 12-13-2023 End: 12-12-2024 XR Lumbar spine Views AP W right bending and W left bending X-ray spine lumbar flexion and extension only 2 to 3 views Imaging Routine Low back pain, unspecified back pain laterality, unspecified chronicity, unspecified whether sciatica present Expected: 12/13/2023, Expires: 12/12/2024 [facility] Work Phone: Comment on above: Expected: 12/13/2023 , Expires: 12/12/2024 Start: 12-09-2023 End: 12-09-2023 Patient encounter procedure 12/09/2023 9:15 AM EDT Appointment [facility] [address] [place] [phone] [facility] Start: 12-08-2023 End: 12-08-2023 Patient encounter procedure 12/08/2023 10:00 AM EDT Office Visit [facility] [address] [place] [phone] Shira Valera, ARBORIST-JUNIOR PROGRAMMER ANALYST [address] [place], [place] [phone] [facility] Start: 11-30-2023 End: 11-30-2023 Patient encounter procedure 11/30/2023 7:45 AM EDT Office Visit [facility] [address] [facility] [address] [place] [address] Sarah Wynne, ARBORIST-JUNIOR PROGRAMMER ANALYST [address] [facility] [address] [place], [place] [phone] [facility] Start: 11-28-2023 End: 11-27-2024 MR Lumbar spine WO contrast MR lumbar spine without contrast Imaging Routine Chronic midline low back pain with left-sided sciatica Lumbar degenerative disc disease Expected: 11/28/2023, Expires: 11/27/2024 [facility] Work Phone: Comment on above: Expected: 11/28/2023 , Expires: 11/27/2024 Start: 11-24-2023 End: 11-24-2023 Patient encounter procedure 11/24/2023 3:00 PM EDT Office Visit [facility] [address] [place] [phone] Justina Valdez MD [address] [place] [address] [facility] Start: 11-24-2023 End: 11-23-2024 XR Lumbar spine 2 or 3 Views [facility] Comment on above: Expected: 11/24/2023 , Expires: 11/23/2024 Start: 11-24-2023 End: 11-23-2024 XR Pelvis 1 or 2 Views [facility] Work Phone: Comment on above: Expected: 11/24/2023 , Expires: 11/23/2024 Start: 11-22-2023 End: 11-22-2023 Patient encounter procedure 11/22/2023 11:00 AM EDT Office Visit [facility] [address] [place] [phone] Justina Valdez MD [address] [place] [address] [facility] Start: 11-18-2023 End: 11-18-2023 Patient encounter procedure 11/18/2023 8:45 AM EDT Office Visit [facility] [address] [place] [phone] Justina Valdez MD [address] [place] [address] [facility] Start: 03-25-2023 Influenza vaccination Influenza Vacc ine [facility] Start: 2015 Administration of varicella zoster vaccine Zoster (Shingles) Vaccine (1 of 2) [facility] Start: 1986 Screening for malign ant neoplasm of cervix Pap Smear [facility] Start: 1983 Adult BMI Follow Up Plan Adult BMI Follow Up Plan [facility] Start: 1983 Diabetic foot examination Diabetic Foot Exam [facility] Start: 1965 Glaucoma screening Diabetic Op hthalmology Exam [facility] End: 02-15-2025 Bacteria identified in Urine by Culture Urine culture Microbiology Routine Postoperative abdominal pain 1 Occurrences starting 02/16/2024 until 02/15/2025 [facility] Work Phone: Comment on above: 1 Occurrences starti ng 02/16/2024 until 02/15/2025 End: 01-09-2025 Basic metabolic 2000 panel - Serum or Plasma Basic Metabolic Panel Lab Routine Diverticulitis large intestine w/o perforation or abscess w/o bleeding 1 Occurrences starting 01/10/2024 until 01/09/2025 [facility] Comment on above: 1 Occurrences starti ng 01/10/2024 until 01/09/2025 End: 01-09-2025 CBC W Auto Differential panel - Blood CBC auto differential Lab Routine Diverticulitis large intestine w/o perforation or abscess w/o bleeding 1 Occurrences starting 01/10/2024 until 01/09/2025 [facility] Comment on above: 1 Occurrences starti ng 01/10/2024 until 01/09/2025 End: 12-05-2024 Colonoscopy Colonoscopy GI Routine Diverticulitis 1 Occurrences starting 12/06/2023 until 12/05/2024 [facility] Work Phone: Comment on above: 1 Occurrences starti ng 12/06/2023 until 12/05/2024 End: 01-09-2025 ECG 12 lead ECG 12 lead ECG Routine Diverticulitis large intestine w/o perforation or abscess w/o bleeding 1 Occurrences starting 01/10/2024 until 01/09/2025 [facility] Comment on above: 1 Occurrences starti ng 01/10/2024 until 01/09/2025 Inject si joint arthrgrphy&/anes/steroid w/verónica INJECTION BLOCK SACROILIAC JOINT Disorder of sacrum [facility] Inject si joint arthrgrphy&/anes/steroid w/verónica INJECTION BLOCK SACROILIAC JOINT Disorder of sacrum [facility] End: 01-10-2026 MR Lumbar spine WO contrast MR lumbar spine without contrast Imaging Routine Lumbar spondylosis Status post lumbar laminectomy Acute midline low back pain without sciatica Bowel dysfunction 1 Occurrences starting 01/10/2025 until 01/10/2026 [facility] Work Phone: Comment on above: 1 Occurrences starti ng 01/10/2025 until 01/10/2026 Surgical Pathology Surgical Path ology Pathology and Cytology Routine Lumbar radiculopathy Lumbar herniated disc Release Upon Ordering for 1 Occurrences starting 05/15/2024 [facility] Work Phone: Comment on above: Release Upon Orderin g for 1 Occurrences starting 05/15/2024 End: 01-09-2025 Unlisted Procedure / Surgery Unlisted Procedure / Surgery Procedures Routine Diverticulitis large intestine w/o perforation or abscess w/o bleeding 1 Occurrences starting 01/10/2024 until 01/09/2025 [facility] Work Phone: Comment on above: 1 Occurrences starti ng 01/10/2024 until 01/09/2025 Immunizations Immunization Date Immunization Notes Care Provider [facility] 03-29-2017 tetanus toxoid, redu debbie diphtheria toxoid, and acellular pertussis vaccine, adsorbed Justina Valdez MD Work Phone: [employer] Payers Date Payer Category Payer Blue Cross Blue Shie ld Managed Care - Other [place] [id number] 2021 Unknown [place] BCBS OUT OF STATE PPO/TRUST [id number] 2021-Present [phone] [address] [place] [id number] 2.7.3.593464.315 1965 Unknown [id number] 2.16.840.1.465868.3.579. 2.593 1965 Unknown [id number] 2.16840.1.487416.3.579. 2.593 1965 Unknown [id number] 2.16.840.1.463687.3.579. 2.593 1965 Unknown [id number] 2.16840.1.800426.3.579. 2.593 1965 Unknown [id number] 2.16840.1.903792.3.579. 2.1286 1965 Unknown [id number] 2.840.1.845352.3.579. 2.1285 1965 Unknown [id number] 2.840.1.534226.3.579. 2.1285 1965 Unknown [id number] 09.09.830.1.913193.3.579. 2.1285 1965 Unknown [id number] .840.1.350247.3.579. 2.128 1965 Unknown [id number] 09.09.830.1.794781.3.579. 2.1285 1965 Unknown [id number] 840.1.642434.3.579. 2.128 1965 Unknown [id number] 09.09.830.1.248605.3.579. 2.128 1965 Unknown [id number] .840.1.257362.3.579. 2.128 1965 Unknown [id number] 2.840.1.706715.3.579. 2.1285 1965 Unknown [id number] 840.1.862724.3.579. 2.1285 1965 Unknown [id number] 2840.1.562007.3.579. 2.1285 1965 Unknown [id number] 840.1.795511.3.579. 2.1285 1965 Unknown [id number] 2.840.1.322894.3.579. 2.1285 1965 Unknown [id number] 2.16840.1.925258.3.579. 2.1285 1965 Unknown [id number] 2.840.1.921746.3.579. 2.1285 1965 Unknown [id number] 2.840.1.081874.3.579. 2.1285 1965 Unknown [id number] 2.840.1.918142.3.579. 2.1285 1965 Unknown [id number] 2.840.1.042555.3.579. 2.1285 1965 Unknown [id number] 20.1.853301.3.579. 2.1285 1965 Unknown [id number] 2.840.1.762227.3.579. 2.1285 1965 Unknown [id number] 2.0.1.871406.3.579. 2.1285 1965 Unknown [id number] 2.840.1.078327.3.579. 2.1285 1965 Unknown [id number] 2840.1.945591.3.579. 2.1285 1965 Unknown [id number] 2.840.1.947404.3.579. 2.1285 1965 Unknown [id number] 2.840.1.380487.3.579. 2.1285 1965 Unknown [id number] 2.840.1.490086.3.579. 2.1285 1965 Unknown [id number] 2.840.1.434812.3.579. 2.1285 1965 Unknown [id number] 2.16840.1.883646.3.579. 2.1285 1965 Unknown [id number] 2.16840.1.612866.3.579. 2.1285 1965 Unknown [id number] 2.16840.1.787547.3.579. 2.1285 1965 Unknown [id number] 2.840.1.449036.3.579. 2.1285 1965 Unknown [id number] 2.840.1.012705.3.579. 2.1285 1965 Unknown [id number] 2.840.1.299080.3.579. 2.1285 1965 Unknown [id number] 2.840.1.338446.3.579. 2.1285 1965 Unknown [id number] 2.840.1.162959.3.579. 2.1285 1965 Unknown [id number] 2.840.1.779616.3.579. 2.1285 1965 Unknown [id number] 2.840.1.592932.3.579. 2.1285 1965 Unknown [id number] 2.840.1.438470.3.579. 2.1285 1965 Unknown [id number] 2.840.1.478809.3.579. 2.1285 1965 Unknown [id number] 2.840.1.796253.3.579. 2.1285 1965 Unknown [id number] 2.840.1.231938.3.579. 2.1285 1965 Unknown [id number] 2.840.1.789046.3.579. 2.1285 1965 Unknown [id number] 2.840.1.345008.3.579. 2.1286 1965 Unknown [id number] 2.16.840.1.298452.3.579. 2.6 1965 Unknown [id number] 2.16.840.1.690823.3.579. 2.1286 1965 Unknown [id number] 2.16.840.1.421849.3.579. 2.1285 1965 Unknown [id number] 2.16.840.1.577274.3.579. 2.128 1965 Unknown [id number] 2.16.840.1.887958.3.579. 2.1285 1965 Unknown [id number] 2.16840.1.918576.3.579. 2.1285 1965 Unknown [id number] 2.840.1.836166.3.579. 2.1285 1965 Unknown [id number] 2.16840.1.396473.3.579. 2.1286 1959 [facility] [id number] 2.840.1.899435.19 1959 Self-pay Social History Date Type Detail Facility Unknown if ever smoked [facility] Other Start: 06-21-2022 End: 01-10-2025 Sex Assigned At [facility] Other Start: 01-09-2024 End: 05-03-2024 Tobacco smoking status CAIS Ex-smoker (finding) [facility] Start: 1965 Sex Assigned At Female [facility] Start: 07-25-2005 End: 07-25-2012 History of tobacco use Current smoker [facility] Start: 07-25-2005 End: 07-25-2012 History of tobacco use Cigarette Smoker [facility] Start: 06-21-2022 End: 11-09-2023 Cigarettes smoked current (pack per day[facility] Start: 11-09-2023 End: 05-03-2024 Tobacco use and exposure Smokeless tobacco non-user [facility] Start: 11-09-2023 End: 01-10-2025 Alcoholic beverage intake Current drinker of alcohol (finding) [facility] Do you belong to any clubs or organizations such as restoration groups, unions, fraternal or athletic groups, or school groups? Yes [facility] Are you now , , , , never or living with a partner? [facility] How often to you hav e a drink containing alcohol? Monthly or less [facility] How many standard dr inks containing alcohol do you have on a typical day? 1 or 2 [facility] How often do you hav e 6 or more drinks on 1 occasion? Never [facility] How hard is it for y ou to pay for the very basics like food, housing, medical care, and heating Not hard at all [facility] Do you feel stress - tense, restless, nervous, or anxious, or unable to sleep at night because your mind is troubled all the time - these days [OSQ] Not at all [facility] Start: 05-18-2022 Alcohol Comment rare-2 drinks/year [facility] tem Start: 1965 Sex assigned at Not on file [facility] Start: 12-27-2023 End: 12-28-2023 Alcoholic beverage intake Ex-drinker (finding) [facility] Has the Other Machine, [employer], or water company threatened to shut off services in your home in past 12Mo No [facility] Start: 05-03-2024 Tobacco Comment 1 pk a day in past [facility] tem Start: 02-27-2015 End: 09-17-2024 Sex Female (finding) [facility] Functional Status Date Assessment Result Facility [facility] Clinical Notes 05-16-2021 to 01-10-2025 SURAJ Perdomo - 01/10/2025 2:30 PM EDTPatiSURAJ Mcmahan - 01/07/2025 3:45 PM Enma Bailey APRN-SARAH - 10/29/2024 11:15 AM EDTPatient Instructions Note Date & Type Note Facility 01-10-2025 History of Present illness Narrative Images from the original note were not included. [facility] [address] [place] [address], [address] [place] [address] * CHART NOTE ? 01/10/2025 Patient: Mar Adame 1965 [id number] Nurse Practitioner: Benjamin Stein CNP Physician: Brian Girard MD, FAANS IMPRESSION / PLAN 59 y.o. female status post lumbar laminotomy and diskectomy on 05/15/2024 presents to the clinic as a follow up reporting increased low back pain [...] diskectomy on 05/15/2024 presents to the clinic as a follow up reporting she was hiking while on vacation on [place] earlier this month. She advises, on the way home, she began to notice midline low back pain that has since improved by 50-60%. Shavonne advises the pain is exacerbated by sleeping and laying down. She admits to difficulty moving her bowels since the symptoms started, advising she feels a pressure. Denies loss of pm head cook strength, saddle anesthesia, urinary dysfunction, weakness, numbness [...] 4 COLONOSCOPY COLONOSCOPY N/A 12/17/2022 Performed by Analia Sharif MD at [facility] ENDOSCOPY COLONOSCOPY DIAGNOSTIC / SCREENING N/A 01/04/2024 Performed by Maverick Nick MD at [facility] DAVINCI COLECTOMY SIGMOID N/A 01/30/2024 Performed by Maverick Nick MD at [facility] DECOMPRESSION LUMBAR LAMINOTOMY / L4/5 AND DISCECTOMY Right 05/15/2024 Performed by Brian Girard MD at [facility] INJECTION BLOCK SACROILIAC JOINT Bilateral 01/20/2024 Performed by Simeon Joe MD at [facility] SOCIAL HISTORY Social History Socioeconomic History Marital [...] min Stress: No Stress Concern Present (06/21/2022) [employer] - Occupational Stress Questionnaire Feeling of Stress : Not at all Social Connections: Socially Integrated (06/21/2022) Social Connection and Isolation Panel [NHANES] Frequency of Communication with Friends and Family: More than three times a week Frequency of Social Gatherings with Friends and Family: More than three times a week Attends [employer] Services: More than 4 times per year [...] space narrowing that is greatest at L3-4, L4-5 and L5-S1 with facet arthropathy of the lower lumbar spine and anterior bone spurring that is greatest at L3-4. Electronically Signed By: Benjamin Stein CNP This note was created with the assistance of a speech recognition program with the goal of generating a timely record of the patient encounter. Inadvertent computerized spray drier errors related to syntax, spelling, homophones, and/or inaudibility may be present. SURAJ Perdomo 01/10/25 1528 documented in this encounter [facility] 01-10-2025 Instructions SURAJ Perdomo - 01/10/2025 2:30 PM EDT Patient seen today by Akanksha MCKEON Lumbar w/o contrast Will call results to georgette MCKEON documented in this encounter [facility] 01-07-2025 History of Present illness Narrative Images from the original note were not included. [address] [facility] [address] SUBJECTIVE: Patient ID: Mar Adame is a 59 y.o. female. Patient presents to the office for ER follow up for constipation and back pain. Had back surgery in May and did well. She went on vacation [...] Negative for arthralgias, gait problem, joint swelling and neck pain. Skin: Negative for pallor and rash. [...] back to their office And medrol dose radha ordered Patient noted to have elevated BMI and the following intervention(s) were applied: encouragement to exercise. SURAJ Hernandez 01/08/25 0806 documented in this encounter [facility] 10-29-2024 History of Present illness Narrative Images from the original note were not included. [address] [facility] [address] SUBJECTIVE: Patient ID: Mar Adame is a 59 y.o. female. Patient presents to the office for follow up. Cough has improved and she is about 90% improved. Still taking cough medication as needed Follow-up Associated symptoms include coughing. Pertinent negatives include no abdominal pain, arthralgias, chest pain, congestion, fatigue, fever, joint swelling, nausea, neck pain, numbness, rash, sore throat, vomiting or weakness. The following portions of the [...] photophobia, pain, discharge and visual disturbance. Respiratory: Positive for cough. Negative for shortness of breath. Cardiovascular: Negative for chest pain, palpitations and leg swelling. Gastrointestinal: Negative for abdominal pain, diarrhea, nausea and vomiting. Endocrine: Negative for polydipsia, polyphagia and polyuria. Genitourinary: Negative for difficulty urinating, frequency, hematuria and urgency. Musculoskeletal: Negative for arthralgias, gait problem, joint swelling and neck pain. Skin: Negative for pallor and rash. Neurological: Negative for dizziness, weakness, light-headedness and numbness. Psychiatric/Behavioral: Negative for sleep disturbance. The patient is not nervous/anxious. PHYSICAL EXAMINATION: Vitals: 10/29/24 1112 BP: 140/80 Pulse: 77 Resp: 18 SpO2: 93% Weight: 111.6 kg (246 lb) Physical Exam Constitutional: Appearance: She is [...] Musculoskeletal: Cervical back: Normal range of motion. Skin: General: Skin is warm and dry. Neurological: Mental Status: She is alert and oriented to person, place, and time. Psychiatric: Mood and Affect: Mood normal. ASSESSMENT/PLAN: Shavonne was seen today for follow-up. Diagnoses and all orders for this visit: Bronchitis Follow-up: Exam is negative Chest x-ray is negative Patient is improving Follow up for wellness or as needed Patient noted to have elevated BMI and the following intervention(s) were applied: encouragement to exercise. SURAJ Hernandez 10/29/24 1140 documented in this encounter [facility] 10-22-2024 History of Present illness Narrative Images from the original note were not included. [address] [place] [address] SUBJECTIVE: Patient ID: Mar Adame is a 59 y.o. female. Patient presents to the office for follow up for cough. Still present but she is feeling improved. Does not feel like 5ml of cough medication is helping. Will increase to 10ml. She feels like her voice is coming back as well. Does have some chest wall pain. Follow-up Associated symptoms include chest pain and coughing. Pertinent negatives include no abdominal pain, arthralgias, congestion, fatigue, fever, joint swelling, nausea, neck pain, numbness, rash, sore throat, vomiting or weakness. The following portions of the [...] photophobia, pain, discharge and visual disturbance. Respiratory: Positive for cough. Negative for shortness of breath. Cardiovascular: Positive for chest pain. Negative for palpitations and leg swelling. Gastrointestinal: Negative for abdominal pain, diarrhea, nausea and vomiting. Endocrine: Negative for polydipsia, polyphagia and polyuria. Genitourinary: Negative for difficulty urinating, frequency, hematuria and urgency. Musculoskeletal: Negative for arthralgias, gait problem, joint swelling and neck pain. Skin: Negative for pallor and rash. Neurological: Negative for dizziness, weakness, light-headedness and numbness. Psychiatric/Behavioral: Negative for sleep disturbance. The patient is not nervous/anxious. PHYSICAL EXAMINATION: Vitals: 10/22/24 1113 BP: 132/80 Pulse: 87 Resp: 18 SpO2: 97% Weight: 111.1 kg (245 lb) Physical Exam Constitutional: Appearance: She is [...] Musculoskeletal: Cervical back: Normal range of motion. Skin: General: Skin is warm and dry. Neurological: Mental Status: She is alert and oriented to person, place, and time. Psychiatric: Mood and Affect: Mood normal. ASSESSMENT/PLAN: Shavonne was seen today for follow-up. Diagnoses and all orders for this visit: Bronchitis - codeine-guaiFENesin (guaiFENesin AC) 10-100 mg/5 mL liquid; Take 10 mL by mouth 3 (three) times a day as needed for cough. - X-ray chest 2 views; Future Other orders - methylPREDNISolone (MEDROL, RADHA,) 4 mg tablet; Take 1 tablet (4 mg total) by mouth in the morning. follow package directions. Follow-up: Medrol dose radha Increased cough medication- O[facility] checked Chest x-ray-will call with results Follow up next week SURAJ Hernandez 10/22/24 1149 documented in this encounter [facility] 10-08-2024 History of Present illness Narrative Images from the original note were not included. [address] [facility] [address] SUBJECTIVE: Patient ID: Mar Adame is a 59 y.o. female. Patient presents to the office for urgent care follow up. She was seen in urgent care due to a cough and sore throat for one week. Was diagnosed with viral bronchitis. Symptoms have not improved. Still has harsh cough even with their prednisone taper. She states throat pain is better but has now lost her voice. She has gotten this bronchitis in the past when the seasons change but not for awhile. She does well with cough medication with codeine. The following portions of the patient's history were reviewed and updated as appropriate: allergies, current medications, past family history, past medical history, past social history, past surgical history and problem list. REVIEW OF SYSTEMS: Review of Systems Constitutional: Negative for fatigue, fever and unexpected weight change. HENT: Positive for congestion and postnasal drip. Negative for ear pain, sinus pressure, sinus pain and sore throat. Eyes: Negative for photophobia, pain, discharge and visual disturbance. Respiratory: Positive for cough. Negative for shortness of breath. Cardiovascular: Negative for chest pain, palpitations and leg swelling. Gastrointestinal: Negative for abdominal pain, diarrhea, nausea and vomiting. Endocrine: Negative for polydipsia, polyphagia and polyuria. Genitourinary: Negative for difficulty urinating, frequency, hematuria and urgency. Musculoskeletal: Negative for arthralgias, gait problem, joint swelling and neck pain. Skin: Negative for pallor and rash. Neurological: Negative for dizziness, weakness, light-headedness and numbness. Psychiatric/Behavioral: Negative for sleep disturbance. The patient is not nervous/anxious. PHYSICAL EXAMINATION: Vitals: 10/08/24 1310 BP: 130/72 Pulse: 66 Resp: 18 Temp: 37 C (98.6 F) TempSrc: Tympanic SpO2: 97% Weight: 111.6 kg (246 lb) Physical Exam Constitutional: Appearance: She is well-developed. HENT: Head: Normocephalic and atraumatic. Right Ear: External ear normal. Left Ear: External ear normal. Nose: Congestion present. Eyes: Conjunctiva/sclera: Conjunctivae normal. Pupils: Pupils are equal, round, and reactive to light. Cardiovascular: Rate and Rhythm: Normal rate and regular rhythm. Heart sounds: Normal heart sounds. Pulmonary: Effort: Pulmonary effort is normal. Breath sounds: Normal breath sounds. Comments: Harsh cough Musculoskeletal: Cervical back: Normal range of motion. Skin: General: Skin is warm and dry. Neurological: Mental Status: She is alert and oriented to person, place, and time. Psychiatric: Mood and Affect: Mood normal. ASSESSMENT/PLAN: Shavonne was seen today for sore throat and cough. Diagnoses and all orders for this visit: Bronchitis - codeine-guaiFENesin (guaiFENesin AC) 10-100 mg/5 mL liquid; Take 5 mL by mouth 3 (three) times a day as needed for cough. Other orders - doxycycline (VIBRAMYCIN) 100 mg capsule; Take 1 capsule (100 mg total) by mouth in the morning and 1 capsule (100 mg total) before bedtime. Do all this for 10 days. - predniSONE (STERAPRED DS) 10 mg tablet pack; Take by mouth daily for 8 days. 6 tabs qd x 3 d then 1 less each day with food Follow-up: Doxycyline 100mg bid for ten days Prednisone taper Guaifenesin 5ml tid for cough- Oarrs checked Follow up in two weeks Patient noted to have elevated BMI and the following intervention(s) were applied: encouragement to exercise. SURAJ Hernandez 10/08/24 1333 documented in this encounter [facility] 09-24-2024 History of Present illness Narrative Images from the original note were not included. [facility] [address] [place] [address], [address] [place] [address] * CHART NOTE ? 09/19/2024 Patient: Mar Adame 1965 [id number] Physician: Benjamin Stein CNP CHIEF COMPLAINT Follow up, lumbar. HISTORY OF PRESENT ILLNESS 59 yo female s/p lumbar laminotomy and discectomy on 05/15/24 presents to the clinic for a follow up visit reporting she has only mild pain in the low back. She completed PT which, she states, provided good relief. Denies loss of pm head cook strength, saddle anesthesia, urinary or bowel dysfunction, weakness, numbness or tingling, radicular symptoms, and loss of balance. ALLERGIES Allergies Allergen Reactions Iodinated Contrast Media Hives and Other (See Comments) Amoxicillin Rash Penicillins Rash MEDICATIONS Current Outpatient Medications: cyclobenzaprine (FLEXERIL) 10 mg tablet, Take 1 tablet (10 mg total) by mouth 3 (three) times a day as needed for muscle spasms., Disp: 30 tablet, Rfl: 1 cyclobenzaprine (FLEXERIL) 10 mg tablet, Take 1 tablet (10 mg total) by mouth nightly as needed for muscle spasms., Disp: 30 tablet, Rfl: 0 gabapentin (NEURONTIN) 300 mg capsule, Take 1 capsule (300 mg total) by mouth See Admin Instructions. Take 1 tablet by mouth at bedtime for 3 nights, then take 1 tablet by mouth twice daily for 3 days, then take 1 tablet by mouth three times daily thereafter (Patient not taking: Reported on 06/25/2024), Disp: 81 capsule, Rfl: 0 methylPREDNISolone (MEDROL, RADHA,) 4 mg tablet, Take 1 tablet (4 mg total) by mouth See Admin Instructions. Use as directed by package instructions, Disp: 21 tablet, Rfl: 0 naloxone (NARCAN) 4 mg/actuation spray,non-aerosol nasal spray, Administer 1 spray (4 mg total) into alternating nostrils as needed for opioid reversal., Disp: 2 each, Rfl: 0 polyethylene glycol (GLYCOLAX) 17 gram packet, Take 17 g by mouth in the morning., Disp: 30 packet, Rfl: 0 sennosides-docusate sodium (SENOKOT-S) 8.6-50 mg, Take 1 tablet by mouth in the morning and 1 tablet before bedtime., Disp: 30 tablet, Rfl: 0 VITAL SIGNS There were no vitals taken for this visit. PHYSICAL EXAMINATION Alert Oriented No percussion tenderness along spine Absent Lhermitte's Absent Spurling ROM of the low back is only mildly decreased No weakness No pathological reflexes No atrophy No fasciculations Sensation to light touch is normal in gr dermatomes Gait is within normal limits JOHN is negative SLR is negative MRI / IMAGES No new imaging. IMPRESSION / PLAN 59 yo female s/p lumbar laminotomy and discectomy on 05/15/24 presents to the clinic for a follow up visit reporting she has only mild pain in the low back. She will follow up as needed. Electronically Signed By: Benjamin Stien CNP This note was created with the assistance of a speech recognition program with the goal of generating a timely record of the patient encounter. Inadvertent computerized spray drier errors related to syntax, spelling, homophones, and/or inaudibility may be present. SURAJ Perdomo 09/24/24 0843 documented in this encounter [facility] 09-24-2024 Instructions Alexia Galvez CMA - 09/24/2024 8:30 AM EST Patient was seen today by Patty. Lombardi f/u PRN. SS documented in this encounter [facility] 06-25-2024 History of Present illness Narrative Images from the original note were not included. [facility] [address] [place] [address], [address] [place] [address] * CHART NOTE ? 06/25/2024 Patient: Mar Adame 1965 [id number] Physician: Benjamin Stein CNP CHIEF COMPLAINT Postop. HISTORY OF PRESENT ILLNESS 59-year-old female status post lumbar laminotomy and diskectomy on 05/15/2024 presents to the clinic for a postop visit. Today, Shavonne reports improved. She states she continues to have a feeling of bruising in the right lateral thigh, with pain that radiates into the left lateral thigh. She advises she has a tightness in the back at times as well. Denies loss of pm head cook strength, saddle anesthesia, urinary or bowel dysfunction, weakness, numbness or tingling, radicular symptoms, and loss of balance. ALLERGIES Allergies Allergen Reactions Iodinated Contrast Media Hives and Other (See Comments) Amoxicillin Rash Penicillins Rash MEDICATIONS Current Outpatient Medications: cyclobenzaprine (FLEXERIL) 10 mg tablet, Take 1 tablet (10 mg total) by mouth 3 (three) times a day as needed for muscle spasms., Disp: 30 tablet, Rfl: 1 gabapentin (NEURONTIN) 300 mg capsule, Take 1 capsule (300 mg total) by mouth See Admin Instructions. Take 1 tablet by mouth at bedtime for 3 nights, then take 1 tablet by mouth twice daily for 3 days, then take 1 tablet by mouth three times daily thereafter, Disp: 81 capsule, Rfl: 0 naloxone (NARCAN) 4 mg/actuation spray,non-aerosol nasal spray, Administer 1 spray (4 mg total) into alternating nostrils as needed for opioid reversal., Disp: 2 each, Rfl: 0 polyethylene glycol (GLYCOLAX) 17 gram packet, Take 17 g by mouth in the morning., Disp: 30 packet, Rfl: 0 sennosides-docusate sodium (SENOKOT-S) 8.6-50 mg, Take 1 tablet by mouth in the morning and 1 tablet before bedtime., Disp: 30 tablet, Rfl: 0 VITAL SIGNS There were no vitals taken for this visit. PHYSICAL EXAMINATION Alert Oriented No percussion tenderness along spine Absent Lhermitte's Absent Spurling ROM of the low back is limited No weakness No pathological reflexes No atrophy No fasciculations Sensation to light touch is decreased in the left lateral leg Gait is antalgic JOHN is negative SLR is negative The surgical wound is well approximated and well healed without signs or symptoms of infection. There is no redness, edema or drainage. MRI / IMAGES No new imaging. IMPRESSION / PLAN 59-year-old female status post lumbar laminotomy and diskectomy on 05/15/2024 presents to the clinic for a postop visit. Today, Shavonne reports improved. She states she continues to have a feeling of bruising in the right lateral thigh, with pain that radiates into the left lateral thigh. She advises she has a tightness in the back at times as well. Will refer to PT. Letter to RTW in 6 weeks (after completing PT) given. Flexeril 10 mg at hs prn and medrol dose radha prescribed today. Patient to follow up in 3 months. Electronically Signed By: Benjamin Stein CNP This note was created with the assistance of a speech recognition program with the goal of generating a timely record of the patient encounter. Inadvertent computerized spray drier errors related to syntax, spelling, homophones, and/or inaudibility may be present. SURAJ Perdomo 06/25/24 1342 documented in this encounter [facility] 06-25-2024 Instructions Alexia Galvez CMA - 06/25/2024 1:45 PM EST Patient was seen by Akanksha hooker. Physical therapy referral placed. 3 month follow up visit scheduled. Letter written to RTW in 6 weeks. Flexeril and medrol radha called in. SS documented in this encounter [facility] 05-16-2024 Hospital course Narrative Images from the original note were not included. [facility] [address] [place] [address], [address] [place] [address] * NEUROSURGERY DISCHARGE SUMMARY Patient: Mar Adame Date of : 1965 Acct: [id number] Primary Care Physician: Justina Valdez MD Admit date: 05/15/2024 05/15/2024 3:02 PM Discharge date: 05/16/24 Discharge Diagnoses: Lumbar spinal stenosis Principal Problem: Lumbar spinal stenosis Active Problems: Lumbar radiculopathy Lumbar herniated disc Discharge Medications: Medication List START taking these medications Instructions Last Dose Given Next Dose Due naloxone 4 mg/actuation spray,non-aerosol nasal spray Commonly known as: NARCAN Administer 1 spray (4 mg total) into alternating nostrils as needed for opioid reversal. oxyCODONE-acetaminophen 5-325 mg per tablet Commonly known as: PERCOCET Take 1-2 tablets by mouth every 6 (six) hours as needed for pain for up to 7 days. Max Daily Amount: 8 tablets polyethylene glycol 17 gram packet Commonly known as: GLYCOLAX Take 17 g by mouth in the morning. sennosides-docusate sodium 8.6-50 mg Commonly known as: SENOKOT-S Take 1 tablet by mouth in the morning and 1 tablet before bedtime. CHANGE how you take these medications Instructions Last Dose Given Next Dose Due gabapentin 300 mg capsule Commonly known as: NEURONTIN What changed: when to take this additional instructions Take 1 capsule (300 mg total) by mouth See Admin Instructions. Take 1 tablet by mouth at bedtime for 3 nights, then take 1 tablet by mouth twice daily for 3 days, then take 1 tablet by mouth three times daily thereafter CONTINUE taking these medications Instructions Last Dose Given Next Dose Due cyclobenzaprine 10 mg tablet Commonly known as: FLEXERIL Take 1 tablet (10 mg total) by mouth 3 (three) times a day as needed for muscle spasms. STOP taking these medications HYDROcodone-acetaminophen 5-325 mg per tablet Commonly known as: NORCO Where to Get Your Medications These medications were sent to [id number] - [place], [place] - [address] [address] naloxone 4 mg/actuation spray,non-aerosol nasal spray oxyCODONE-acetaminophen 5-325 mg per tablet polyethylene glycol 17 gram packet sennosides-docusate sodium 8.6-50 mg Diet: Adult diet Regular Texture Adult diet Activity: Per DC Instruction Sheet Follow-up: Follow up as scheduled with Dr. Girard Consultants: None Procedures: DECOMPRESSION LUMBAR LAMINOTOMY / L4/5 AND DISCECTOMY Diagnostic Test: none Physical Exam: Temp: [36.1 C (97 F)-36.7 C (98.1 F)] 36.7 C (98.1 F) Pulse: [68-90] 81 Resp: [16-22] 16 BP: (132-169)/(63-99) 132/83 SpO2: [92 %-100 %] 97 % O2 Device: None (Room air) O2 Flow Rate (L/min): [2 L/min-6 L/min] 2 L/min Alert and Oriented No Acute Distress Respiratorys normal and unlabored Reg Rate PERRL BLE/BUE with normal sensation BHARGAVI/BUE with normal motor function Incision: Op dressing in place, CDI, Sutures Hospital Course: clinical course has been stable, This is a 59 y.o. female with a pmh of radiculopathy who presented to the hospital for the surgical procedure listed above. Pt seen and evaluated on morning rounds. Awake, alert and oriented with clear appropriate speech. Pre-op symptoms are improved after surgery. Surgical pain is well controlled with oral pain medications. Pt is eating, drinking and voiding without difficulty with + flatus. Ambulating in halls with steady gait. Surgical incision well approximated and intact with sutures, no incisional concerns. Criteria for discharge has been met. Verbal discharge instructions reviewed, all questions have been answered. Pt verbalized understanding. OARRS report has been reviewed and appropriate. Written discharge instructions and a prescription for Percocet for pain control will be provided at the time of discharge. Pt will be discharged to home later today with no needs. Follow up appointment is in place and appointment details have been reviewed. Disposition: home Condition: Stable The patient has been started on an opiate pain medication for a condition that is expected to last longer than seven days. Alternatives to opiate medication have been considered and discussed with the patient and it has been agreed upon that opiates are needed in this case. This initial prescription for this problem has been written for 7 days. The reasons for opiate pain medication therapy in this case is acute postoperative pain). The risks versus benefits of opiate therapy, and extended opiate therapy have been discussed with the patient and have been deemed acceptable and clinically appropriate. DAVID Burrows, MANAGER [facility]ONE [facility] [phone] 05/16/24 9:08 AM SURAJ Kaufman 05/16/24 0911 documented in this encounter [facility] 05-16-2024 Hospital Discharge instructions SURAJ Kaufman - 05/16/2024 8:54 AM EDT Neurosurgery Discharge Instructions Special Medication Instructions: No Aspirin, Anti-Inflammatories, Anti-Platelet agents or other blood thinning medications for 7 days from date of surgery No alcohol Continue stool softeners while taking narcotic pain medication. Add laxatives as needed Activities: No lifting greater than 1-2 lbs for 14 days No driving for 7 days or while taking pain medication May shower, no tub baths or swimming for 14 days from date of surgery Avoid bending, twisting and strenuous activity Take short frequent walks during the day Stairs as tolerated, take your time Notify Doctor if you notice: Increased pain Redness, swelling, bleeding or drainage from incision Temperature 101 degrees or above Numbness, tingling or decreased strength different than before your surgery or new since your surgery. In case of emergency, call 911 immediately! If 911 is not available, call your local emergency medical system for help Wound Care: Remove your dressing on 05/17/24 () Do not apply creams or ointments to your incision Shower daily with soap and water gently going over the area to clean. Dry with a clean towel Keep wound open to air unless you have drainage then you may cover it to avoid soiling your clothes/sheets. Your sutures are absorbable and will fall out on their own in the coming weeks Other Instructions: Call [facility] Neuro[facility] with any questions, . The following attachments cannot be sent through Care Everywhere.Spinal Stenosis Stretching Exercises (Prydeinig)Radiculopathy Discharge Instructions (Prydeinig)Intervertebral Discectomy Discharge Instructions (Prydeinig)documented in this encounter [facility] 05-15-2024 Miscellaneous Notes Brief Post-op Note NAME: Mra Adame : 1965 PROCEDURE DATE: 05/15/2024 Surgeon: Surgeons and Role: * Brian Girard MD - Primary Assistants: None Staff: Integrated Circuits Inspector Primary: Alivia Yang RN Integrated Circuits Inspector Relief: Lashae Levy RN Scrub Person: ST Stephanie Terminologist: Tasneem Sharif RN Pre-op Diagnosis: Lumbar radiculopathy [M54.16] Lumbar herniated disc [M51.26] Procedure Details: Procedure(s): DECOMPRESSION LUMBAR LAMINOTOMY / L4/5 AND DISCECTOMY (Right) - Wound Class: Clean Anesthesia Type: General Post-Op Diagnosis Codes: * Lumbar radiculopathy [M54.16] * Lumbar herniated disc [M51.26] Complications: none Additions (Drains, Specimens, Implants): Specimens: ID Type Source Tests Collected by Time 1 : lumbar 4,5 disc Tissue Back, Lower SURGICAL PATHOLOGY Brian Girard MD 05/15/2024 4549 Estimated Blood Loss: 40 mL OB Surgical Procedure Blood Loss: Anesthesia EBL: * No values recorded between 05/15/2024 4:27 PM and 05/15/2024 5:59 PM * OB QBL: * No values recorded between 05/15/2024 4:27 PM and 05/15/2024 5:59 PM * Condition: stable Findings: right paracentral disc herniation Evidence of infection was not visualized at time of surgery. documented in this encounter [facility] 05-15-2024 Procedure note Brief Post-op Note NAME: Mar Adame : 1965 PROCEDURE DATE: 05/15/2024 Surgeon: Surgeons and Role: * Brian Girard MD - Primary Assistants: None Staff: Integrated Circuits Inspector Primary: Alivia Yang RN Integrated Circuits Inspector Relief: Lashae Levy RN Scrub Person: ST Stephanie Terminologist: Tasneem Sharif RN Pre-op Diagnosis: Lumbar radiculopathy [M54.16] Lumbar herniated disc [M51.26] Procedure Details: Procedure(s): DECOMPRESSION LUMBAR LAMINOTOMY / L4/5 AND DISCECTOMY (Right) - Wound Class: Clean Anesthesia Type: General Post-Op Diagnosis Codes: * Lumbar radiculopathy [M54.16] * Lumbar herniated disc [M51.26] Complications: none Additions (Drains, Specimens, Implants): Specimens: ID Type Source Tests Collected by Time 1 : lumbar 4,5 disc Tissue Back, Lower SURGICAL PATHOLOGY Brian Girard MD 05/15/2024 1729 Estimated Blood Loss: 40 mL OB Surgical Procedure Blood Loss: Anesthesia EBL: * No values recorded between 05/15/2024 4:27 PM and 05/15/2024 5:59 PM * OB QBL: * No values recorded between 05/15/2024 4:27 PM and 05/15/2024 5:59 PM * Condition: stable Findings: right paracentral disc herniation Evidence of infection was not visualized at time of surgery. [facility] 05-15-2024 Attending History and physical note HISTORY AND PHYSICAL INTERVAL NOTE: Mar Adame 1965 [id number] H&P reviewed. The patient was examined and there are no changes to the H&P. Brian Girard MD Source Note - Justina Valdez MD - 05/08/2024 9:45 AM EDT Images from the original note were not included. [address] [facility] [id number] SUBJECTIVE: Patient ID: Mar Adame is a 59 y.o. female. 59 yo WF with 2 days of sinus and earache, no fever- surgery in 1 week The following portions of the patient's history were reviewed and updated as appropriate: allergies, current medications, past family history, past medical history, past social history, past surgical history and problem list. REVIEW OF SYSTEMS: Review of Systems HENT: Positive for congestion. Respiratory: Positive for cough. PHYSICAL EXAMINATION: Vitals: 05/08/24 0951 BP: 134/80 BP Site: Left Arm BP Postition: Sitting BP CUFF SIZE: M (9-13 inches) Pulse: 76 Resp: 16 Temp: 36.9 C (98.4 F) TempSrc: Tympanic Weight: 111.4 kg (245 lb 8 oz) Height: 162.6 cm (5' 4 ) Physical Exam Vitals and nursing note reviewed. Constitutional: Appearance: Normal appearance. HENT: Head: Normocephalic and atraumatic. Nose: Congestion present. Mouth/Throat: Pharynx: Posterior oropharyngeal erythema present. Eyes: Extraocular Movements: Extraocular movements intact. Pupils: Pupils are equal, round, and reactive to light. Cardiovascular: Rate and Rhythm: Normal rate and regular rhythm. Pulses: Normal pulses. Heart sounds: Normal heart sounds. Pulmonary: Effort: Pulmonary effort is normal. Breath sounds: Normal breath sounds. No rhonchi. Skin: General: Skin is warm and dry. Neurological: General: No focal deficit present. Mental Status: She is alert and oriented to person, place, and time. Psychiatric: Mood and Affect: Mood normal. Behavior: Behavior normal. ASSESSMENT/PLAN: Shavonne was seen today for sinus problem, earache and headache. Diagnoses and all orders for this visit: Other acute sinusitis, recurrence not specified Other orders - azithromycin (ZITHROMAX) 250 mg tablet; Take 2 tablets the first day, then 1 tablet daily for 4 days. Follow-up: zpak [facility] 05-15-2024 History and physical note HISTORY AND PHYSICAL INTERVAL NOTE: Mar Adame 1965 [id number] H&P reviewed. The patient was examined and there are no changes to the H&P. Brian Girard MD Source Note - Justina Valdez MD - 05/08/2024 9:45 AM EDT Images from the original note were not included. [address] [facility] [id number] SUBJECTIVE: Patient ID: Mar Adame is a 59 y.o. female. 59 yo WF with 2 days of sinus and earache, no fever- surgery in 1 week The following portions of the patient's history were reviewed and updated as appropriate: allergies, current medications, past family history, past medical history, past social history, past surgical history and problem list. REVIEW OF SYSTEMS: Review of Systems HENT: Positive for congestion. Respiratory: Positive for cough. PHYSICAL EXAMINATION: Vitals: 05/08/24 0951 BP: 134/80 BP Site: Left Arm BP Postition: Sitting BP CUFF SIZE: M (9-13 inches) Pulse: 76 Resp: 16 Temp: 36.9 C (98.4 F) TempSrc: Tympanic Weight: 111.4 kg (245 lb 8 oz) Height: 162.6 cm (5' 4 ) Physical Exam Vitals and nursing note reviewed. Constitutional: Appearance: Normal appearance. HENT: Head: Normocephalic and atraumatic. Nose: Congestion present. Mouth/Throat: Pharynx: Posterior oropharyngeal erythema present. Eyes: Extraocular Movements: Extraocular movements intact. Pupils: Pupils are equal, round, and reactive to light. Cardiovascular: Rate and Rhythm: Normal rate and regular rhythm. Pulses: Normal pulses. Heart sounds: Normal heart sounds. Pulmonary: Effort: Pulmonary effort is normal. Breath sounds: Normal breath sounds. No rhonchi. Skin: General: Skin is warm and dry. Neurological: General: No focal deficit present. Mental Status: She is alert and oriented to person, place, and time. Psychiatric: Mood and Affect: Mood normal. Behavior: Behavior normal. ASSESSMENT/PLAN: Shavonne was seen today for sinus problem, earache and headache. Diagnoses and all orders for this visit: Other acute sinusitis, recurrence not specified Other orders - azithromycin (ZITHROMAX) 250 mg tablet; Take 2 tablets the first day, then 1 tablet daily for 4 days. Follow-up: zpak documented in this encounter [facility] 05-08[facility] History of Present illness Narrative Images from the original note were not included. [address] [facility] [id number] SUBJECTIVE: Patient ID: Mar Adame is a 59 y.o. female. 59 yo WF with 2 days of sinus and earache, no fever- surgery in 1 week The following portions of the patient's history were reviewed and updated as appropriate: allergies, current medications, past family history, past medical history, past social history, past surgical history and problem list. REVIEW OF SYSTEMS: Review of Systems HENT: Positive for congestion. Respiratory: Positive for cough. PHYSICAL EXAMINATION: Vitals: 05/08/24 0951 BP: 134/80 BP Site: Left Arm BP Postition: Sitting BP CUFF SIZE: M (9-13 inches) Pulse: 76 Resp: 16 Temp: 36.9 C (98.4 F) TempSrc: Tympanic Weight: 111.4 kg (245 lb 8 oz) Height: 162.6 cm (5' 4 ) Physical Exam Vitals and nursing note reviewed. Constitutional: Appearance: Normal appearance. HENT: Head: Normocephalic and atraumatic. Nose: Congestion present. Mouth/Throat: Pharynx: Posterior oropharyngeal erythema present. Eyes: Extraocular Movements: Extraocular movements intact. Pupils: Pupils are equal, round, and reactive to light. Cardiovascular: Rate and Rhythm: Normal rate and regular rhythm. Pulses: Normal pulses. Heart sounds: Normal heart sounds. Pulmonary: Effort: Pulmonary effort is normal. Breath sounds: Normal breath sounds. No rhonchi. Skin: General: Skin is warm and dry. Neurological: General: No focal deficit present. Mental Status: She is alert and oriented to person, place, and time. Psychiatric: Mood and Affect: Mood normal. Behavior: Behavior normal. ASSESSMENT/PLAN: Shavonne was seen today for sinus problem, earache and headache. Diagnoses and all orders for this visit: Other acute sinusitis, recurrence not specified Other orders - azithromycin (ZITHROMAX) 250 mg tablet; Take 2 tablets the first day, then 1 tablet daily for 4 days. Follow-up: marjoriek documented in this encounter [facility] 05-03-2024 Miscellaneous Notes Patient calls and leaves a message stating that she has surgery 05/15 and is receiving steroid injections tomorrow. PAT informed patient to call our office. Called patient and left a voicemail that it is ok for her to receive steroid injections tomorrow per Benjamin Stein CNP. documented in this encounter [facility] 05-03-2024 Telephone encounter Note Patient calls and leaves a message stating that she has surgery 05/15 and is receiving steroid injections tomorrow. PAT informed patient to call our office. [facility] 05-03-2024 Telephone encounter Note Called patient and left a voicemail that it is ok for her to receive steroid injections tomorrow per Benjamin Stein JUNIOR PROGRAMMER ANALYST. [facility] 05-03-2024 History and physical note PRE-ADMISSION TESTING HISTORY AND PHYSICAL EXAM DATE: 05/03/24 PCP: Justina Valdez MD HISTORY OF PRESENT ILLNESS: Mar Adame, a 59 y.o. White or female, presents to [facility] for a pre-surgical H&P. The patient has been diagnosed with Lumbar radiculopathy [M54.16] . Patient denies any previous back surgeries. Patient states she has had progressively worsening low back and right leg pain which is worse with certain movements. She states the pain radiates down to the knee. She also has constant numbness of the right leg down to the knee. She states the pain is improved when she lays flat on her back. She has undergone physical therapy as well as 1 cortisone injection which made her symptoms worse. She denies any loss of bladder or bowel control. She denies using any assistive devices to assist with ambulation. She is taking hydrocodone, muscle relaxers and gabapentin for pain. She denies any recent illness, fever, or cough. Anesthesia problems: denies. Latex allergy: denies. Bleeding/ clotting disorders: denies. Recent hospitalizations: denies. 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 Diverticulitis of colon Diverticulosis Eczema 06/21/2022 GERD (gastroesophageal reflux disease) History of colon polyps 11/15/2022 Low back pain Lumbar spondylosis 05/25/2016 Morbid obesity ([facility]) 06/21/2022 Neck pain PONV (postoperative nausea and [...] impairment Vitamin D deficiency 10/25/2018 PAST SURGICAL HISTORY: Past Surgical History: Procedure Laterality Date SECTION x 4 COLONOSCOPY COLONOSCOPY N/A 12/17/2022 Performed by Analia Sharif MD at [facility] ENDOSCOPY COLONOSCOPY DIAGNOSTIC / SCREENING N/A 01/04/2024 Performed by Maverick Nick MD at [facility] COLECTOMY SIGMOID N/A 01/30/2024 Performed by Maverick Nick MD at [facility] INJECTION BLOCK SACROILIAC JOINT Bilateral 01/20/2024 Performed by Simeon Joe MD at [facility] FAMILY HISTORY: Family History Problem Relation Age of Onset Back Problems Mother Arthritis Mother Brain Tumor Father Coronary artery disease Father Lung cancer Father small cell- at age 81 Dementia Father Autoimmune disease Sister Fibromyalgia Sister Back Problems Brother Pectus excavatum Brother Heart disease Maternal Grandfather Breast cancer Neg Hx SOCIAL HISTORY: The patient reports current alcohol use. She reports that she quit smoking about 11 years ago. Her smoking use included cigarettes. She started smoking about 18 years ago. She has a 7 pack-year smoking history. She has never used smokeless tobacco. She reports no history of drug use. ALLERGIES: Allergies Allergen Reactions Iodinated Contrast Media Hives and Other (See Comments) Amoxicillin Rash Penicillins Rash MEDICATIONS: Current Outpatient Medications: cyclobenzaprine (FLEXERIL) 10 mg tablet, Take 1 tablet (10 mg total) by mouth 3 (three) times a day as needed for muscle spasms., Disp: 30 tablet, Rfl: 1 gabapentin (NEURONTIN) 300 mg capsule, Take 1 capsule (300 mg total) by mouth See Admin Instructions. Take 1 tablet by mouth at bedtime for 3 nights, then take 1 tablet by mouth twice daily for 3 days, then take 1 tablet by mouth three times daily thereafter (Patient taking differently: Take 1 capsule (300 mg total) by mouth 3 (three) times a day Indications: neuropathic pain.), Disp: 81 capsule, Rfl: 0 HYDROcodone-acetaminophen (NORCO) 5-325 mg per tablet, Take 1 tablet by mouth every 6 (six) hours as needed for pain. Max Daily Amount: 4 tablets, Disp: , Rfl: REVIEW OF SYSTEMS: Review of Systems Constitutional: Negative. HENT: Negative. Eyes: Negative. Respiratory: Negative for apnea, shortness of breath and wheezing. Cardiovascular: Negative for chest pain, palpitations and tachycardia. Gastrointestinal: Diverticulosis, GERD, colon polyps Endocrine: Negative. Genitourinary: Negative. Musculoskeletal: Positive for back pain. Skin: Eczema, rosacea Allergic/Immunologic: Negative. Neurological: Positive for numbness (right leg). Psychiatric/Behavioral: Anxiety, depression VITAL SIGNS: BP 130/74 Pulse 78 Temp 36.6 C (97.8 F) (Temporal) Resp 20 Ht 162.6 cm (5' 4 ) Wt 112.1 kg (247 lb 2.2 oz) SpO2 96% BMI 42.42 kg/m PHYSICAL EXAM: Physical Exam Constitutional: Appearance: Normal appearance. HENT: Head: Normocephalic and atraumatic. Nose: Nose normal. Mouth/Throat: Mouth: Mucous membranes are moist. Pharynx: Oropharynx is clear. Eyes: Extraocular Movements: Extraocular movements intact. Conjunctiva/sclera: Conjunctivae normal. Pupils: Pupils are equal, round, and reactive to light. Cardiovascular: Rate and Rhythm: Normal rate and regular rhythm. Heart sounds: Normal heart sounds. Pulmonary: Effort: Pulmonary effort is normal. Breath sounds: Normal breath sounds. Abdominal: General: Bowel sounds are normal. Palpations: Abdomen is soft. Musculoskeletal: Cervical back: Normal range of motion and neck supple. Lumbar back: Spasms (right leg to the knee) present. Decreased range of motion. Skin: General: Skin is warm and dry. Neurological: General: No focal deficit present. Mental Status: She is alert and oriented to person, place, and time. RECENT LABS: Lab Results Component Value Date WBC 6.3 03/13/2024 HGB 13.1 03/13/2024 HCT 38.8 03/13/2024 PLT 367 03/13/2024 SODIUM 139 03/13/2024 K 4.2 03/13/2024 CL 102 03/13/2024 CO2 26 03/13/2024 CALCIUM 9.7 03/13/2024 ALKPHOS 67 03/13/2024 ALBUMIN 4.4 03/13/2024 GLU 119 (H) 03/13/2024 ALT 18 03/13/2024 AST 16 03/13/2024 CREATININE 0.81 03/13/2024 BUN 15 03/13/2024 EGFR 84 03/13/2024 TSH 1.26 03/13/2024 *Please note that labs listed above are the most recent lab values available in [facility] at the time the H&P was signed. ASSESSMENT / DIAGNOSIS: Lumbar radiculopathy [M54.16] PLAN: Mar Adame is scheduled for Decompression Lumbar Laminotomy / L4/5 And Discectomy - Right on 05/15/[address] Girard. SURAJ Gil 05/03/24 1350 [place] Work Phone: 05-03-2024 History and physical note PRE-ADMISSION TESTING HISTORY AND PHYSICAL EXAM DATE: 05/03/24 PCP: Justina Valdez MD HISTORY OF PRESENT ILLNESS: Mar Adame, a 59 y.o. White or female, presents to [facility] for a pre-surgical H&P. The patient has been diagnosed with Lumbar radiculopathy [M54.16] . Patient denies any previous back surgeries. Patient states she has had progressively worsening low back and right leg pain which is worse with certain movements. She states the pain radiates down to the knee. She also has constant numbness of the right leg down to the knee. She states the pain is improved when she lays flat on her back. She has undergone physical therapy as well as 1 cortisone injection which made her symptoms worse. She denies any loss of bladder or bowel control. She denies using any assistive devices to assist with ambulation. She is taking hydrocodone, muscle relaxers and gabapentin for pain. She denies any recent illness, fever, or cough. Anesthesia problems: denies. Latex allergy: denies. Bleeding/ clotting disorders: denies. Recent hospitalizations: denies. 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 Diverticulitis of colon Diverticulosis Eczema 06/21/2022 GERD (gastroesophageal reflux disease) History of colon polyps 11/15/2022 Low back pain Lumbar spondylosis 05/25/2016 Morbid obesity ([facility]) 06/21/2022 Neck pain PONV (postoperative nausea and [...] impairment Vitamin D deficiency 10/25/2018 PAST SURGICAL HISTORY: Past Surgical History: Procedure Laterality Date SECTION x 4 COLONOSCOPY COLONOSCOPY N/A 12/17/2022 Performed by Analia Sharif MD at [facility] ENDOSCOPY COLONOSCOPY DIAGNOSTIC / SCREENING N/A 01/04/2024 Performed by Maverick Nick MD at [facility] COLECTOMY SIGMOID N/A 01/30/2024 Performed by Maverick Nick MD at [facility] INJECTION BLOCK SACROILIAC JOINT Bilateral 01/20/2024 Performed by Simeon Joe MD at [facility] FAMILY HISTORY: Family History Problem Relation Age of Onset Back Problems Mother Arthritis Mother Brain Tumor Father Coronary artery disease Father Lung cancer Father small cell- at age 81 Dementia Father Autoimmune disease Sister Fibromyalgia Sister Back Problems Brother Pectus excavatum Brother Heart disease Maternal Grandfather Breast cancer Neg Hx SOCIAL HISTORY: The patient reports current alcohol use. She reports that she quit smoking about 11 years ago. Her smoking use included cigarettes. She started smoking about 18 years ago. She has a 7 pack-year smoking history. She has never used smokeless tobacco. She reports no history of drug use. ALLERGIES: Allergies Allergen Reactions Iodinated Contrast Media Hives and Other (See Comments) Amoxicillin Rash Penicillins Rash MEDICATIONS: Current Outpatient Medications: cyclobenzaprine (FLEXERIL) 10 mg tablet, Take 1 tablet (10 mg total) by mouth 3 (three) times a day as needed for muscle spasms., Disp: 30 tablet, Rfl: 1 gabapentin (NEURONTIN) 300 mg capsule, Take 1 capsule (300 mg total) by mouth See Admin Instructions. Take 1 tablet by mouth at bedtime for 3 nights, then take 1 tablet by mouth twice daily for 3 days, then take 1 tablet by mouth three times daily thereafter (Patient taking differently: Take 1 capsule (300 mg total) by mouth 3 (three) times a day Indications: neuropathic pain.), Disp: 81 capsule, Rfl: 0 HYDROcodone-acetaminophen (NORCO) 5-325 mg per tablet, Take 1 tablet by mouth every 6 (six) hours as needed for pain. Max Daily Amount: 4 tablets, Disp: , Rfl: REVIEW OF SYSTEMS: Review of Systems Constitutional: Negative. HENT: Negative. Eyes: Negative. Respiratory: Negative for apnea, shortness of breath and wheezing. Cardiovascular: Negative for chest pain, palpitations and tachycardia. Gastrointestinal: Diverticulosis, GERD, colon polyps Endocrine: Negative. Genitourinary: Negative. Musculoskeletal: Positive for back pain. Skin: Eczema, rosacea Allergic/Immunologic: Negative. Neurological: Positive for numbness (right leg). Psychiatric/Behavioral: Anxiety, depression VITAL SIGNS: BP 130/74 Pulse 78 Temp 36.6 C (97.8 F) (Temporal) Resp 20 Ht 162.6 cm (5' 4 ) Wt 112.1 kg (247 lb 2.2 oz) SpO2 96% BMI 42.42 kg/m PHYSICAL EXAM: Physical Exam Constitutional: Appearance: Normal appearance. HENT: Head: Normocephalic and atraumatic. Nose: Nose normal. Mouth/Throat: Mouth: Mucous membranes are moist. Pharynx: Oropharynx is clear. Eyes: Extraocular Movements: Extraocular movements intact. Conjunctiva/sclera: Conjunctivae normal. Pupils: Pupils are equal, round, and reactive to light. Cardiovascular: Rate and Rhythm: Normal rate and regular rhythm. Heart sounds: Normal heart sounds. Pulmonary: Effort: Pulmonary effort is normal. Breath sounds: Normal breath sounds. Abdominal: General: Bowel sounds are normal. Palpations: Abdomen is soft. Musculoskeletal: Cervical back: Normal range of motion and neck supple. Lumbar back: Spasms (right leg to the knee) present. Decreased range of motion. Skin: General: Skin is warm and dry. Neurological: General: No focal deficit present. Mental Status: She is alert and oriented to person, place, and time. RECENT LABS: Lab Results Component Value Date WBC 6.3 03/13/2024 HGB 13.1 03/13/2024 HCT 38.8 03/13/2024 PLT 367 03/13/2024 SODIUM 139 03/13/2024 K 4.2 03/13/2024 CL 102 03/13/2024 CO2 26 03/13/2024 CALCIUM 9.7 03/13/2024 ALKPHOS 67 03/13/2024 ALBUMIN 4.4 03/13/2024 GLU 119 (H) 03/13/2024 ALT 18 03/13/2024 AST 16 03/13/2024 CREATININE 0.81 03/13/2024 BUN 15 03/13/2024 EGFR 84 03/13/2024 TSH 1.26 03/13/2024 *Please note that labs listed above are the most recent lab values available in [facility] at the time the H&P was signed. ASSESSMENT / DIAGNOSIS: Lumbar radiculopathy [M54.16] PLAN: Mar Adame is scheduled for Decompression Lumbar Laminotomy / L4/5 And Discectomy - Right on 05/15/[address] Girard. SURAJ Gil 05/03/24 1350 documented in this encounter [facility] 05-03-2024 Instructions Ginette Bruce RN - 05/03/2024 12:45 PM EDT Bathing Before Surgery- Patients greater than 2 months of age You can help to lower your chance of infection at the site of your surgery by showering or bathing with a special soap called chlorhexidine gluconate (CHG). Germs live on your skin. This special soap will help lower the amount of germs so they do not get into your surgery site. Special points to know: Do not use this soap if you know that you are allergic to CHG. Shower or bathe with CHG the night before and the morning of surgery. Do not shave the area of your body where the surgery will be done within 7 days of surgery. The CHG may make your skin a little dry, but do not use lotion. Steps for Bathing: Wash your hair as usual with your normal shampoo. Rinse your hair and body well after you shampoo to get rid all of the shampoo. Wash gently with the CHG from the neck down, but do not scrub the skin to hard. Be sure to wash the area of your surgery very well. If showering, turn the water off while washing and then turn the water back onto rinse. Do not get CHG in the genital (private) area. Do not get CHG in the eyes, ears, nose or mouth. (If the soap gets into the eyes, flush them immediately with water). Do not wash with regular soap after CHG is used. Pat skin dry with a soft, clean towel. Patient should sleep in freshly laundered night clothes and report for surgery in clean clothes. Your surgery/procedure is scheduled at [facility] on 05-15-2024 at 3:30pm Arrival Time 1:30pm [facility] Address: [address] [place] [address] Park in [address] Parking lot located on [facility]. Report to the Entrance B. Check in at the information desk the surgery. The waiting room located on the second floor. If you have any questions prior to surgery, please call Pre-Admission Clinic at [phone] between 7:30 am and 4:30 pm Tuesday through Tuesday. If you have questions the morning of surgery, please call the Pre-op Department at [phone]. Notify your SURGEON if you develop any illness such as a cold, cough, fever, sore throat, vomiting or are hospitalized between now and your surgery. Medication Instructions (Do not stop your medications without consulting the prescribing physician). Take the following medications the morning of surgery with a sip of water: Gabapentin Diabetic or Weight loss medications: HOLD n/a LAST DOSE n/a Take inhalers as prescribed the morning of surgery. Due to the risk associated with these medications. If these medications are not held per instruction below, your surgery is at an increased risk for cancellation. SGLT2 Medications- Hold 3 days prior to surgery: Jardiance, Empagliflozin, Farxiga, Dapagliflozin, Invokana, Canagliflozin GLP-1 Medications (Injection or Pill)- If taken daily hold day of surgery. If taken weekly, hold 1 week prior to surgery: Adlyxin, Byetta, Bydureon, Ozempic, Rybelsus,Trulicity, Victoza, Wegovy, Lixisenatide, Exenatide, Semaglutide, Dulaglutide, Liraglutide GIP/GLP-1(Injection or Pill)- If taken daily hold day of surgery. If taken weekly, hold 1 week prior to surgery: Go . Blood thinners: Please contact your prescribing physician regarding a stop/hold date for these medications. Medications such as Coumadin, Heparin, Aspirin, Plavix, Eliquis, Pradaxa Diabetics: If you take insulin, contact your prescribing doctor for instructions on how to manage this the night before and the morning of surgery. Non-steriodal Anti-Inflammatory Drugs (NSAIDS)- Hold 3 days prior to surgery unless otherwise directed by your surgeon. Vitamins/Herbal Products: You may continue to take your prescribed vitamins such as potassium, iron, vitamin B, vitamin C, or multivitamin unless specifically instructed by your surgeon to hold. STOP taking all herbal products/teas one week prior to your surgery. Marijuana: Stop marijuana 72 hours prior to surgery, stop CBD oil 48 hours prior to surgery. If you have been given bowel prep instructions by your surgeon, please call the surgeon's office with any questions about these instructions. What do I do the day of Surgery? Age 2 through adult - Stop all solids by midnight, You may have clear liquids up to 2 hours before surgery, unless otherwise instructed by your surgeon. Clear liquids are: water, sports drinks such as Gatorade or G2, or apple juice. You may NOT have: tube feedings, dairy products, alcoholic beverages, orange juice, or any liquids with solids or pulp in it. If applicable, shower again with CHG soap the morning of your surgery. If you received a green plastic bracelet, bring it with you the day of surgery and your nurse will put it on you. In order to help prevent infection post-operatively, you may be asked to use a CHG mouthwash when you arrive to the Pre-op area. Your nurse will provide instruction the morning of. What do I need to do to prepare for surgery? If you will be going home the same day as your surgery, arrange for an adult over [address] Riding in a bus or taxi by yourself is not permitted. You should not smoke or drink alcohol 24 hours before your surgery. Alcohol thins the blood and may cause bleeding problems during surgery. Smoking increases the risk of breathing problems after surgery. Do not use lotions, creams, powders, perfume, make up, cologne or after-shaves day of surgery. Remove ALL jewelry including wedding rings, body piercings (including dermal piercings ,hair extensions that contain metal, nail telugu, make-up, and contact lens. You may brush your teeth the morning of surgery, but do not swallow the water. Wear your dentures and partial plates to the hospital (no adhesive). Shower the night the before. If applicable, use the CHG (chlorhexidine gluconate) soap or wipes What should I bring to the hospital? If you received a green plastic bracelet, bring it with you the day of surgery and your nurse will put it on you. Eyeglass or contact lens case If you will be spending the night, please bring personal care items and leave them in the car until you are taken to your room after surgery. Leave ALL valuables at home. If any of these instructions conflict with those you received from the surgeon, please seek clarification from your surgeon's office. DEEP BREATHING EXERCISES This exercise helps promote good air exchange and helps to prevent pneumonia after surgery. Breathe in slowly and deeply through the nose. Hold your breath for a few seconds and then exhale slowly through the mouth. Repeat this three times and then cough.Coughing helps to clear your lungs. If you have had a surgery with an incision into your abdomen or chest, press gently against your incision with a pillow or a folded blanket when you cough. Please be aware - it may not be schuster to cough following some types of surgeries involving the eyes, ears, sinuses and throat. Always follow your doctor's instructions. LEG EXERCISE These exercises help promote good circulation and help to prevent blood clots after surgery. Point your toes to the ceiling and then point them to the wall. Do this slowly about 15-20 times. You may also move your feet in circles. Do the exercise that is most comfortable for you. If you have had surgery involving your shoulder or arm, we recommend you move your fingers. PRACTICING We ask that you begin practicing these exercises before your surgery. After surgery try to do both exercises at least every 2 hours during the day and early evening. SURGICAL SITE INFECTION PREVENTION What is a Surgical Site Infection? Infection can happen to the area of the body where surgery is done. This is called a surgical site infection (SSI). A SSI does not happen very often. Can SSIs be treated? Antibiotics are used to treat SSI. Some patients may need another surgery to treat the infection. The doctor will discuss treatment options with you. What are some of the things that hospitals are doing to prevent SSIs? Soap and water or alcohol hand rub are used before and after caring for each patient. Special soap is used to clean surgery workers hands and arms just before the surgery. Masks, gowns, gloves and hair covers are worn during the surgery to keep the area clean. Hair in the surgery area may be removed with clippers (not razors). A special soap that kills germs is used to clean the skin at the surgery site. Antibiotics may be given before the surgery starts. What can you do to prevent SSIs? Before surgery: You may be asked to shower or bathe with a special soap that kills germs the night before and the day of surgery. Use the soap as you were told. If you smoke, stop or cut down. Ask your doctor about ways to quit. Do not shave near where you will have surgery. Shaving can irritate the skin and make it easier to get and infection. After surgery: Be sure that the doctors and nurses clean their hands before and after touching you. Be sure your family and friends clean their hands before and after visiting you. Do not be afraid to remind them. * Care for your wound at home as told by your doctor or nurse * Call your doctor right away if you have fever, redness, increased pain, or drainage at the surgery site. Further questions? Contact the doctor, nurse or the Infection Prevention and Control department if you have any questions. PATIENT RIGHTS AND RESPONSIBILITIES As a patient at [facility], you have the right to: Receive medical care and be informed of who is taking care of you Be treated with dignity and respect Have a family member/fraud representative of choice and your physician notified of your admission Receive information and actively participate in decisions about your care and treatment Refuse care, treatment and services Decide who may provide your support and speak for you Access catholic and spiritual services Participate in ethical issues and questions about your care Receive private and confidential care Have appropriate assessment and management of your pain Know guest visitation restrictions or limitations Have an advance directive Access protective services Consent or refuse to participate in research studies or production or recordings, films or other images Have resolution of your complaints Receive information of hospital charges and payment methods Patient/patient fraud representative responsibilities are to: Provide information about health status to facilitate care, treatment and services Follow the treatment, plan, keep appointments and speak up when you do not understand the plan Respect the rights of other patients and healthcare personnel Follow organizational rules and regulations that support quality care and a safe environment Fulfill financial obligations as promptly as possible documented in this encounter [facility] 05-01-2024 History of Present illness Narrative Images from the original note were not included. Subjective: Mar Adame is a 59 y.o. female status post robotic sigmoid colectomy on 01/30/2024 for recurrent sigmoid diverticulitis. She is here for follow-up. Right lower quadrant pain and numbness has not resolved. She has been having back pain and right lower extremity numbness and tingling. She is going to have back surgery for this. She has been tolerating p.o. intake without any issues. She is having bowel function. She has been taking a stool softener since she has been on pain meds to avoid constipation Objective: Pulse: [104] 104 BP: (145)/(93) 145/93 Allergies Allergen Reactions Iodinated Contrast Media Hives and Other (See Comments) Amoxicillin Rash Penicillins Rash Physical Exam General Appearance: Awake, Alert & Oriented x3, No Acute Distress. Neck: Trachea Midline. Pulmonary: Unlabored breathing. Cardiac: Regular rhythm and rate. Abdomen: Soft, non-tender, non-distended. Incisions are clean, dry and intact. No signs of infection. Extremity: No edema Skin: Dry. Non-icteric. No Rash. Eyes: Pupils Equal and Round, Non-icteric Laboratory Data: Lab Results Component Value Date WBC 6.3 03/13/2024 HGB 13.1 03/13/2024 HCT 38.8 03/13/2024 MCV 99 03/13/2024 PLT 367 03/13/2024 Lab Results Component Value Date GLU 119 (H) 03/13/2024 CALCIUM 9.7 03/13/2024 K 4.2 03/13/2024 CO2 26 03/13/2024 CL 102 03/13/2024 BUN 15 03/13/2024 CREATININE 0.81 03/13/2024 No results found for: AMYLASE No results found for: LIPASE Lab Results Component Value Date ALT 18 03/13/2024 AST 16 03/13/2024 ALKPHOS 67 03/13/2024 No results found for: INR , PROTIME Assessment: Mar Adame is a 59 y.o. female status post robotic sigmoid colectomy on 01/30/2024. Complicated by neuropathic pain in the right lower quadrant, improved Plan: Follow-up as needed documented in this encounter [facility] 04-25-2024 Miscellaneous Notes Patient called today to request refill on Percocet and Flexeril. She states her PCP prescribed Percocet and Flexeril due to her pain. She states she has 1 Percocet left and her PCP will not refill as she was told she will have to go through pain management. Patient is informed that providers will not automatically refill Percocet as the focus is interventional procedures/injections. She is informed that if providers would prescribe narcotic short-term, the provider will have a mynl-hb-elvy discussion with her to discuss safety, risk/benefits, follow up, compliance, etc. She is informed that provider may consider refilling flexeril. She was asked if flexeril has provided relief. She is not sure as she has been taking Percocet and Flexeril together. She was prescribed MDP 04/05/2024 per pain management and 8 day Prednisone taper per PCP 04/09/2024 which she states provided her with moderate relief and asks if it would be possible to get another prescription. Patient was educated that it may be too soon for another dose of steroids but the message will be sent to provider. She is scheduled for right SI injection 05/04/2024 and 05/15/2024 right L4/5 decompression laminotomy and discectomy. Patient states she has tried to do without Percocet but the pain was too great. She asks if she should go to the ED. Patient was informed that she may inform her PCP that Percocet will not be refilled by this office at this time as there has been no face to face discussion between her and our providers. It is noted that Flexeril prescription has 1 refill. She is informed that if she is not able to get a refill and her pain remains severe she should go to the ED. Too soon for another round of po steroids. May continue flexeril. I could take over her gabapentin and increase it to 600TID as long as she has no side effects from current dose of 300 Pt states she hasn't taken gabapentin 300 in 2-3 weeks since being on percocet. Pt needs flexeril refill. Order pending for flexeril. Do you want gabapentin started at 600 mg TID if she hasn't been on it for 2-3 weeks? Can restart at 300tid. If tolerating well by next week she can call and we can increase to 600 a tthat time Called pt to inform her to start titration gabapentin 300 TID PVU Addended by: KATTY CUNNINGHAM on: 04/26/2024 02:40 PM Modules accepted: Orders documented in this encounter [facility] 04-25-2024 Note Addended by: KATTY CUNNINGHAM on: 04/26/2024 02:40 PM Modules accepted: Orders [facility] 04-25-2024 Telephone encounter Note Patient called today to request refill on Percocet and Flexeril. She states her PCP prescribed Percocet and Flexeril due to her pain. She states she has 1 Percocet left and her PCP will not refill as she was told she will have to go through pain management. Patient is informed that providers will not automatically refill Percocet as the focus is interventional procedures/injections. She is informed that if providers would prescribe narcotic short-term, the provider will have a [id number]-wr-ptuj discussion with her to discuss safety, risk/benefits, follow up, compliance, etc. She is informed that provider may consider refilling flexeril. She was asked if flexeril has provided relief. She is not sure as she has been taking Percocet and Flexeril together. She was prescribed MDP 04/05/2024 per pain management and 8 day Prednisone taper per PCP 04/09/2024 which she states provided her with moderate relief and asks if it would be possible to get another prescription. Patient was educated that it may be too soon for another dose of steroids but the message will be sent to provider. She is scheduled for right SI injection 05/04/2024 and 05/15/2024 right L4/5 decompression laminotomy and discectomy. Patient states she has tried to do without Percocet but the pain was too great. She asks if she should go to the ED. Patient was informed that she may inform her PCP that Percocet will not be refilled by this office at this time as there has been no face to face discussion between her and our providers. It is noted that Flexeril prescription has 1 refill. She is informed that if she is not able to get a refill and her pain remains severe she should go to the ED. [facility] 04-25-2024 Telephone encounter Note Too soon for another round of po steroids. May continue flexeril. I could take over her gabapentin and increase it to 600TID as long as she has no side effects from current dose of 300 [facility] 04-25-2024 Telephone encounter Note Pt states she hasn't taken gabapentin 300 in 2-3 weeks since being on percocet. Pt needs flexeril refill. Order pending for flexeril. Do you want gabapentin started at 600 mg TID if she hasn't been on it for 2-3 weeks? [facility] 04-25-2024 Telephone encounter Note Can restart at 300tid. If tolerating well by next week she can call and we can increase to 600 a tthat time [facility] 04-25-2024 Telephone encounter Note Called pt to inform her to start titration gabapentin 300 TID PVU [facility] 04-17-2024 Miscellaneous Notes Patient surgery got rescheduled for 04/27/24. Patient out of pain medication, patient asking if that can be refilled to last her until surgery. She is still having pain and numbness in legs. [facility] [place] I am only to subscribe 7 days for this med, I will rx 7days, but I can't do more Oaars and rx sent Please have pt take 1/2 and or only as needed Correction surgery is 05/19/24. Asking if work note can be given til then yes Note made, letter to be picked up in office documented in this encounter [facility] 04-17-2024 Telephone encounter Note Patient surgery got rescheduled for 04/27/24. Patient out of pain medication, patient asking if that can be refilled to last her until surgery. She is still having pain and numbness in legs. [facility] 04-17-2024 Telephone encounter Note I am only to subscribe 7 days for this med, I will rx 7days, but I can't do more Oaars and rx sent Please have pt take 1/2 and or only as needed [facility] 04-17-2024 Telephone encounter Note Correction surgery is 05/19/24. Asking if work note can be given til then [facility] 04-17-2024 Telephone encounter Note yes [facility] 04-17-2024 Telephone encounter Note Note made, letter to be picked up in office [facility] 04-12-2024 Note XR CHEST 2 VWS Clinical history: Preoperative evaluation. Comparisons: None Findings: 2 views of the chest obtained. Heart size and pulmonary vasculature appear within normal limits. Lungs appear clear. There is no pleural effusion nor pneumothorax. IMPRESSION: No evidence for acute cardiopulmonary disease. Finalized by Todd Ingram MD on 04/12/2024 3:19 PM [facility] 04-12-2024 Note Clinical history: Preoperative evaluation. Comparisons: None Findings: 2 views of the chest obtained. Heart size and pulmonary vasculature appear within normal limits. Lungs appear clear. There is no pleural effusion nor pneumothorax. IMPRESSION: No evidence for acute cardiopulmonary disease. Finalized by Todd Ingram MD on 04/12/2024 3:19 PM [facility] 04[facility] History of Present illness Narrative Images from the original note were not included. [facility] [address] [place] [address], [address] [place] [address] * CHART NOTE ? 04/12/2024 Patient: Mar Adame 1965 [id number] Nurse Practitioner: Benjamin Stein, JUNIOR PROGRAMMER ANALYST Physician: Brian Girard MD, FAANS IMPRESSION / PLAN 59 y.o. female with right sided lower back pain and radicular symptoms. Imaging showed a disc herniation at L4-5 on the right side causing significant nerve impingement. Given the failure of conservative therapies she is a surgical candidate for a right L4-5 laminectomy and diskectomy. Risks of surgery and post-operative care were discussed. Patient will be scheduled electively. HISTORY OF PRESENT ILLNESS 59 y.o. female presents to the clinic as a follow up for right low back pain that radiates into the right buttock and upper posterior thigh after physical therapy and ESIs. She was initially seen in ED on 04/09/2024 with severe lower back pain and symptoms of cauda equina. She is no longer having any bowel or bladder dysfunction, but reports a new ache and numbness in the right anterolateral thigh. KASSIE and PT have not improved the symptoms, and she reports increased symptoms today. Each of the patient's unique studies were independently interpreted and reviewed to their understanding in office today including but not limited to diagnosis, treatment options, and risk factors. Given the failure of conservative therapies to improve patient's current symptoms, the goals and indications for neurosurgical intervention were discussed to the patient's understanding. Denies loss of pm head cook strength, saddle anesthesia, urinary or bowel dysfunction, and loss of balance. Patient does not use an assistive device for ambulation. Patient is not diabetic and former smoker. 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 Diverticulosis Eczema 06/21/2022 GERD (gastroesophageal reflux disease) History of colon polyps 11/15/2022 Low back pain Lumbar spondylosis 05/25/2016 Morbid obesity ([facility]) 06/21/2022 Neck pain Primary hydronephrosis 07/07/2020 ==== 07/07/2020 ==== has [...] History: Procedure Laterality Date SECTION x 4 CHOLECYSTECTOMY COLONOSCOPY COLONOSCOPY N/A 12/17/2022 Performed by Analia Sharif MD at [facility] ENDOSCOPY COLONOSCOPY DIAGNOSTIC / SCREENING N/A 01/04/2024 Performed by Maverick Nick MD at [facility] COLECTOMY SIGMOID N/A 01/30/2024 Performed by Maverick Nick MD at [facility] INJECTION BLOCK SACROILIAC JOINT Bilateral 01/20/2024 Performed by Simeon Joe MD at [facility] SOCIAL HISTORY Social History Socioeconomic History Marital [...] date: 2005 Quit date: 2013 Years since quittin.7 Smokeless tobacco: Never Vaping Use Vaping status: Never Used Substance and Sexual Activity Alcohol use: Yes Comment: rare-2 drinks/year Drug use: Never Sexual activity: Yes Partners: Male control/protection: Surgical Other Topics Concern Not on file Social History Narrative Not on file Social Determinants of Health Financial Resource Strain: Low Risk (03/02/2024) Overall Financial Resource Strain (CARDIA) Difficulty of Paying Living Expenses: Not hard at all Food Insecurity: No Food Insecurity (04/09/2024) Hunger Screening Food Insecurity - Worry: Never True Food Insecurity - Inability: Never True Transportation Needs: No Transportation Needs (03/02/2024) PRAPARE - Transportation Lack of Transportation (Medical): No Lack of Transportation (Non-Medical): No Physical Activity: Inactive (06/21/2022) Exercise Vital Sign Days of Exercise per Week: 0 days Minutes of Exercise per Session: 0 min Stress: No Stress Concern Present (06/21/2022) [employer] [place] [employer] - Occupational Stress Questionnaire Feeling of Stress : Not at all Social Connections: Socially Integrated (06/21/2022) Social Connection and Isolation Panel [NHANES] Frequency of Communication with Friends and Family: More than three times a week Frequency of Social Gatherings with Friends and Family: More than three times a week Attends [employer] Services: More than 4 times per year Active Member of Clubs or Organizations: Yes Attends Club or Organization Meetings: More than 4 times per year Marital Status: Interpersonal Safety: Not At Risk (01/30/2024) Humiliation, Afraid, Rape, and Kick questionnaire Fear of Current or Ex-Partner: No Emotionally Abused: No Physically Abused: No Sexually Abused: No Housing Instability: Low Risk (03/02/2024) Housing Instability Housing Instability: No REVIEW OF SYSTEMS ROS Positive Findings: Negative otherwise noted in the HPI PHYSICAL EXAMINATION Alert Oriented No percussion tenderness along spine Absent Lhermitte's Absent Spurling ROM of the low back is dereased 4.5/5 weakness in the right quadriceps No pathological reflexes No atrophy No fasciculations Sensation to light touch is decreased in the right anterolateral thigh Gait is within normal limits JOHN is negative SLR is positive MRI / IMAGES I personally interpreted the imaging studies independently and critical findings were anotated for the patient. MRI lumbar spine demonstrated a right paracentral disc herniation in th subarticular zone causing mass effect on the traversing L5 root. Signal around conus is normal. No evidence of instability noted. Electronically Signed By: Brian Girard MD This note was created with the assistance of a speech recognition program with the goal of generating a timely record of the patient encounter. Inadvertent computerized spray drier errors related to syntax, spelling, homophones, and/or inaudibility may be present. Scribe Statement: Scribed for and in the presence of Brian Girard MD by Park Young. Provider Statement: I, Brian Girard MD personally performed the services described in the documentation, as scribed by Park Young in my presence, and it is both accurate and complete [facility] Inst[facility] CAILIN Kothari - 04/12/2024 10:15 AM EDT Patient was seen today by DR. Girard. Offered surgery for L4-5 Laminotomy and discectomy. Chest xray order placed. Patient will meet with Shannon surgery assistant, to go over consents. JA [email or web address] 04-09-[facility]24 History of Present illness Narrative Images from the original note were not included. [id number] [facility] [id number] SUBJECTIVE: Patient ID: Mar Adame is a 59 y.o. female. 59 yo WF with 1 week of severe low back pain and right leg pain and sees pain management and has tried PTx and was noted disc protrusion 9/13 withct scan lumbar spine at ER , 1 week The following portions of the patient's history were reviewed and updated as appropriate: allergies, current medications, past family history, past medical history, past social history, past surgical history and problem list. REVIEW OF SYSTEMS: Review of Systems Musculoskeletal: Positive for back pain. PHYSICAL EXAMINATION: Vitals: 04/09/24 1020 BP: 148/88 BP Site: Left Arm BP Postition: Sitting BP CUFF SIZE: L (13-17 inches) Pulse: 80 Resp: 16 Weight: 110 kg (242 lb 8 oz) Height: 162.6 cm (5' 4 ) Physical Exam Vitals and nursing note reviewed. Constitutional: Appearance: Normal appearance. HENT: Head: Normocephalic and atraumatic. Skin: General: Skin is warm and dry. Neurological: Mental Status: She is alert and oriented to person, place, and time. Comments: L45 radiculopathy with painful and dcreased rom low back Psychiatric: Mood and Affect: Mood normal. Behavior: Behavior normal. ASSESSMENT/PLAN: Shavonne was seen today for back pain. Diagnoses and all orders for this visit: Lumbar spondylosis - Ambulatory referral to Neurosurgery; Future Bulging lumbar disc - Ambulatory referral to Neurosurgery; Future Displacement of left side of L4-L5 intervertebral disc - oxyCODONE-acetaminophen (PERCOCET) 5-325 mg per tablet; Take 1 tablet by mouth every 8 (eight) hours as needed for pain for up to 7 days. 3 Day Supply Max Daily Amount: 3 tablets Other orders - predniSONE (STERAPRED DS) 10 mg tablet pack; Take by mouth daily for 8 days. 6 tabs qd x 3 d then 1 less each day with food - cyclobenzaprine (FLEXERIL) 10 mg tablet; Take 1 tablet (10 mg total) by mouth 3 (three) times a day as needed for muscle spasms. Follow-up: Neurosurgery referral off work and refill flexeril prednisone and percocet [facility] documented in this encounter [facility] 04-06-2024 Miscellaneous Notes Patient was seen in the office yesterday with increased low back pain. She was prescribed a MDP and a right SI joint injection was ordered. Patient began the MDP yesterday (all doses taken) and has not gotten any relief as of yet. Pain is a 9/10 today. She is alternating ice/heat, taking Cyclobenzaprine 10 mg TID, Gabapentin 300 mg TID. She is unable to sit, she can only lay down or stand up. Encouraged patient to continue to take the medications, add OTC Acetaminophen and if she does not get relief by Tuesday or Tuesday to go to the ER. Also advised patient to go to the ER if she loses control of her bowel and/or bladder. Patient is scheduled for the SI joint injection on 04/27 and also placed on the cancellation list. Jaclyn- please check patient's insurance so we can possibly move her procedure up. Please call and check on pt. Can she take nsaids? Called pt, states she is on her way to see Dr Girard right now as her right leg is numb still and on another round of steroids. She doesn't like to take NSAIDs because she has an enlarged kidney. She will call us after her appt with the outcome. noted Kianna called pt to move up her procedure, pt states dr girard told her she needs surgery and will be scheduled for Right L 4/5 laminectomy and diskectomy noted documented in this encounter [facility] 04-06-2024 Telephone encounter Note Patient was seen in the office yesterday with increased low back pain. She was prescribed a MDP and a right SI joint injection was ordered. Patient began the MDP yesterday (all doses taken) and has not gotten any relief as of yet. Pain is a 9/10 today. She is alternating ice/heat, taking Cyclobenzaprine 10 mg TID, Gabapentin 300 mg TID. She is unable to sit, she can only lay down or stand up. Encouraged patient to continue to take the medications, add OTC Acetaminophen and if she does not get relief by Tuesday or Tuesday to go to the ER. Also advised patient to go to the ER if she loses control of her bowel and/or bladder. Patient is scheduled for the SI joint injection on 04/27 and also placed on the cancellation list. Jaclyn- please check patient's insurance so we can possibly move her procedure up. [facility] 04-06-2024 Telephone encounter Note Please call and check on pt. Can she take nsaids? [facility] 04-06-2024 Telephone encounter Note Called pt, states she is on her way to see Dr Girard right now as her right leg is numb still and on another round of steroids. She doesn't like to take NSAIDs because she has an enlarged kidney. She will call us after her appt with the outcome. [facility] 04-06-2024 Telephone encounter Note noted [facility] 04-06-2024 Telephone encounter Note Kianna called pt to move up her procedure, pt states dr girard told her she needs surgery and will be scheduled for Right L 4/5 laminectomy and diskectomy [facility] 04-06-2024 Telephone encounter Note noted [facility] 04-05-2024 History of Present illness Narrative [facility] [address] [place] [address] Patient: Mar Adame Sex: female : 1965 Age: 59 y.o. PCP: Justina Valdez MD 04/05/2024 Mar Adame is here for a(n) follow up. Patient reports her pain has been severe recently. Date of onset of pain: 09/2023 , pain has lasted greater than 3 months. Chief Complaint Patient presents with Back Pain HPI: PT x 1 week at [facility] in September or October 2023 without relief (1 session in the pool). Patient has a consult tomorrow at [facility] to setup future PT 01-20-2024 Bilateral Sacroiliac Joint with 80% relief x 10 days. Pre procedure pain 6/10. Post procedure pain 2/10. Back Pain The current episode started more than 1 month ago (09/27/2023 is when pain became more severe with Diverticulitis attack). The problem occurs constantly. The problem has been gradually worsening since onset. The pain is present in the lumbar spine, gluteal and sacro-iliac. The quality of the pain is described as stabbing and aching. The pain radiates to the right thigh (Rt Hip). The pain is at a severity of 8/10. The pain is moderate. The pain is The same all the time. Exacerbated by: prolonged sitting, standing, walking, stairs, bending, lifting, lying, twisting, pushing/pulling, cough/sneeze, transitioning. Stiffness is present In the morning. Associated symptoms include bladder incontinence (urgency, unable to make it to bathroom and difficulty sitting and hollding her urine to sit and finish. She can feel she has to go), leg pain (Rt Thigh) and weakness (BLE). Pertinent negatives include no bowel incontinence, chest pain, fever, headaches, numbness or tingling. Risk factors include obesity. She has tried muscle relaxant, heat, ice, home exercises and walking (morphine, norco w/ mild relief; MDP with significant relief briefly; Tylenol w/ no relief; no NSAIDs due to enlarged kidney; ice/heat w/ moderate relief;) for the symptoms. The treatment provided moderate relief. The effect of pain on patient's ADLS: Moderate Impairment. 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 Diverticulosis Eczema 06/21/2022 GERD (gastroesophageal reflux disease) History of colon polyps 11/15/2022 Low back pain Lumbar spondylosis 05/25/2016 Morbid obesity ([facility]) 06/21/2022 Neck pain Primary hydronephrosis 07/07/2020 ==== 07/07/2020 ==== has [...] 05/25/2016 Visual impairment Vitamin D deficiency 10/25/2018 Past Surgical History: Procedure Laterality Date SECTION x 4 CHOLECYSTECTOMY COLONOSCOPY COLONOSCOPY N/A 12/17/2022 Performed by Analia Sharif MD at [facility] ENDOSCOPY COLONOSCOPY DIAGNOSTIC / SCREENING N/A 01/04/2024 Performed by Maverick Nick MD at [facility] COLECTOMY SIGMOID N/A 01/30/2024 Performed by Maverick Nick MD at [facility] INJECTION BLOCK SACROILIAC JOINT Bilateral 01/20/2024 Performed by Simeon Joe MD at [facility] Allergies Allergen Reactions Iodinated Contrast Media Hives and Other (See Comments) Amoxicillin Rash Penicillins Rash Family History Problem Relation Age of Onset Back Problems Mother Arthritis Mother Brain Tumor Father Coronary artery disease Father Lung cancer Father small cell- at age 81 Dementia Father Autoimmune disease Sister Fibromyalgia Sister Back Problems Brother Pectus excavatum Brother Heart disease Maternal Grandfather Breast cancer Neg Hx Social History Socioeconomic History Marital status: Spouse name: Not on file Number of children: Not on file Years of education: Not on file Highest education level: Not on file Occupational History Not on file Tobacco Use Smoking status: Former Current packs/day: 0.00 Average packs/day: 1 pack/day for 7.0 years (7.0 ttl pk-yrs) Types: Cigarettes Start date: 2005 Quit date: 2012 Years since quittin.7 Smokeless tobacco: Never Vaping Use Vaping status: Never Used Substance and Sexual Activity Alcohol use: Yes Comment: rare-2 drinks/year Drug use: Never Sexual activity: Yes Partners: Male control/protection: Surgical Other Topics Concern Not on file Social History Narrative Not on file Social Determinants of Health Financial Resource Strain: Low Risk (03/02/2024) Overall Financial Resource Strain (CARDIA) Difficulty of Paying Living Expenses: Not hard at all Food Insecurity: No Food Insecurity (04/05/2024) Hunger Screening Food Insecurity - Worry: Never True Food Insecurity - Inability: Never True Transportation Needs: No Transportation Needs (03/02/2024) PRAPARE - Transportation Lack of Transportation (Medical): No Lack of Transportation (Non-Medical): No Physical Activity: Inactive (06/21/2022) Exercise Vital Sign Days of Exercise per Week: 0 days Minutes of Exercise per Session: 0 min Stress: No Stress Concern Present (06/21/2022) [employer] [place] [employer] - Occupational Stress Questionnaire Feeling of Stress : Not at all Social Connections: Socially Integrated (06/21/2022) Social Connection and Isolation Panel [NHANES] Frequency of Communication with Friends and Family: More than three times a week Frequency of Social Gatherings with Friends and Family: More than three times a week Attends [employer] Services: More than 4 times per year Active Member of Clubs or Organizations: Yes Attends Club or Organization Meetings: More than 4 times per year Marital Status: Interpersonal Safety: Not At Risk (01/30/2024) Humiliation, Afraid, Rape, and Kick questionnaire Fear of Current or Ex-Partner: No Emotionally Abused: No Physically Abused: No Sexually Abused: No Housing Instability: Low Risk (03/02/2024) Housing Instability Housing Instability: No Review of Systems Constitutional: Positive for chills. Negative for fever. HENT: Negative. Eyes: Negative. Respiratory: Negative for cough and shortness of breath. Cardiovascular: Negative for chest pain. Gastrointestinal: Positive for constipation. Negative for bowel incontinence. Endocrine: Negative. Genitourinary: Positive for bladder incontinence (urgency, unable to make it to bathroom and difficulty sitting and hollding her urine to sit and finish. She can feel she has to go). Musculoskeletal: Positive for back pain. Skin: Negative. Allergic/Immunologic: Negative. Neurological: Positive for weakness (BLE). Negative for tingling, numbness and headaches. Hematological: Negative. Psychiatric/Behavioral: Negative. Vital Signs: BP (!) 175/104 (BP Site: Right Arm) Pulse 83 Ht 162.6 cm (5' 4 ) Wt 110.2 kg (243 lb) SpO2 97% BMI 41.71 kg/m Physical Exam: GENERAL - Healthy patient that appears stated age. HEENT - Normocephalic / Atraumatic, Extraoccular movements intact, trachea midline, thyroid within normal limits. CV - pulse regular, Warm extremities with appropriate color of nailbeds. RESP - No obvious wheezing, No Shortness of Breath, No overexertion response to exam maneuvers. COORDINATION - remains intact. PSYCH - Alert and Oriented x4, Attentive and appropriate, constitutionally normal, displays normal mood and affect per situation, answered questions appropriately during examination, demonstrated appropriate attention during discussion, demonstrated appropriate cognitive reasoning and understanding of the medical condition by asking appropriate questions regarding the diagnosis and risks/benefits/alternatives of treatment modalities. No obvious deficits in memory, reasoning, or intellect. Lumbar: SKIN - No rashes or bruising in the area of the patient s pain. LYMPH NODES - demonstrate no obvious enlargement. EXTREMITIES - Lower extremities are warm, with minimal edema and palpable pulses. No significant tenderness to palpation noted in the lumbar spine and paraspinal musculature. Mild pain is elicited with flexion, extension, and lateral rotation of the lumbar spine. Range of motion is not diminished with these motions. Facet palpation is negative for significant pain and facet loading maneuvers elicit only mild pain that is not concordant with the patient s normal pain complaints. STRENGTH - noted to be 5 out of 5 all muscle groups bilateral lower extremities including muscles involving hip flexion and abduction, knee flexion and extension, as well as foot dorsiflexion and plantarflexion. No notable atrophy, fasciculations or spasm. SENSORY - No notable sensory deficits in the bilateral lower extremities to touch or pinprick in all dermatomal distributions. Straight Leg Raise is negative bilaterally. Tenderness to palpation is noted over the Right SacroIliac Joint: Fabere sign (Kj's Test) is significantly positive, as is compression and distraction of the sacroiliac joints, which is consistent with some of the patient's normal pain. Gait is normal. Assessment/Treatment Plan: Shavonne was seen today for back pain. Diagnoses and all orders for this visit: Disorder of sacrum - Case request operating room: INJECTION BLOCK SACROILIAC JOINT Other orders - methylPREDNISolone (MEDROL, RADHA,) 4 mg tablet; follow package directions Medrol dose pack With Regard to medication management, it is felt that the patient would benefit from the changes mentioned above. This should provide symptomatic pain relief as part of the comprehensive pain management strategy outlined. Risks, Benefits, Side effects, and possible interactions of these medications were reviewed and the medication agreement has been discussed, agreed upon, and signed. The patient understands compliance concerns and the requirement of pill counts and drug screens while taking medications prescribed by this clinic. Right Sacroiliac Joint Injection - under fluoroscopy with the use of contrast dye (unless contraindicated) It is hopeful that the described procedure will provide symptomatic pain relief. It is felt to be medically necessary noting that the patient has tried and failed more conservative modalities of therapy and this is the next most appropriate step. The procedure was described in detail to the patient as well as the potential benefits of pain reduction alongside risks of the procedure and alternatives. Risks were described as including, but not limited to bleeding, infection, nerve damage, spinal cord injury, paralysis, stroke, dural puncture headache, and medication reaction. The patient expressed understanding regarding the risks and benefits and wishes to proceed. Diagnostic SI injections should provide information to confirm that the noted SI Joint arthropathy is the patient s most significant pain generator. If this provides significant but only temporary pain relief, the patient may in the future be a candidate for radiofrequency denervation of the SI joint to provide pain relief for approximately 1 year. Follow up 2 weeks after procedure The medications I have prescribed have been reviewed for medication interactions/contraindications and/or for upcoming procedures: continue current medication regimen without any changes. DISCUSSION: Treatment options discussed with patient and all questions answered to patient's satisfaction. Discussed the rules and regulations surrounding prescription of opioids and compliance at length. Failure to follow the rules and regulation will result in tapering and discontinuation of medications if applicable. Prescribed medication that requires intensive monitoring for toxicity We do not currently prescribe any controlled substance from this practice. The spine model was demonstrated and MRI was reviewed and used to explain the condition. Chronic conditions not treated during this visit that affected my overall medical decision making: Comorbidity- Obesity The patient does have a comorbid condition of obesity. This will be taken into account in that obesity will contribute to certain pain conditions. It can contribute to pain from degenerative disc disease as well as osteoarthritis of the joints. Many neuropathic symptoms are also amplified due to axial spine loading. Special benefits will also need to be given to procedures. Many procedures are technically more difficult in the light of severe obesity. I will also consider the possibility of undiagnosed obstructive sleep apnea (which often accompanies obesity) when prescribing any narcotic medications. I will weigh the risks and benefits and fully discuss them with the patient for these reasons. Comorbidity- Anxiety The patient describes a significant issue with anxiety. Although treatment is helpful with this regard, the patient is likely need special accommodation due to this condition. For this reason, necessary procedures will likely need to be performed under sedation to decrease procedural anxiety. Comorbidity- Depression The patient has an ongoing issue with depression and currently feels these symptoms are under control and further feels that appropriate pain management would also help these symptoms. The patient is optimistic about the treatment plan we have laid out. We will continue to monitor these symptoms and remain cogniscent that they may affect the patients perceived improvement from the treatment and willingness to pursue further treatment. At this time the patient appears to be mentally and emotionally stable to undergo procedural and medical therapy. If any warning signs become present, I may refer the patient to a mental health professional for further evaluation. OARRS: Reviewed. Scribe Statement: Scribed for and in the presence of ZAHRA CROWLEY by Lidya Escamilla CNA. Provider Statement: I, ZAHRA CROWLEY, personally performed the services described in the documentation, as scribed by Lidya Escamilla CNA in my presence, and it is both accurate and complete. Lidya Escamilla CNA 04/05/24 [id number] Lidya Escamilla CNA 04/05/24 [id number] ZAHRA Crowley 04/05/24 1051 documented in this encounter [facility] 04-05-2024 Instructions Lidya TilalisaMICHAEL - 04/05/2024 7:45 AM EDT Facet Injection / Medial Branch Block (MBB) / Sacroiliac (SI) Joint Injection / Cluneal NB A facet injection and sacroiliac joint injection are injections of local anesthetic and steroid into a joint in the spine. A medial branch block is similar, but the medication is placed outside the joint space near the nerve that supplies the joint called the medial branch (steroid may or may not be used). You may require multiple injections depending upon how many joints are involved. How Long Will This Procedure Last? The extent and duration of pain relief may depend on the amount of inflammation and how many areas are involved. Other coexisting factors may be responsible for your pain. If your pain goes away for a short time, but then returns, you may be a candidate for radiofrequency ablation (RFA). Activity Be active. Attempt activities and movements that typically cause pain to see if it feels better while doing them. We will give you a pain diary. Please fill this out as directed by your nurse in pre-op. This will help your doctor determine the effectiveness of the injection, and how to proceed. Bring the pain diary with you to your follow-up appointment. Medications You should not take your pain medications for 4-6 hours before or after the injection in order to properly diagnose if the injection provides adequate relief. Resume your routine medications after your procedure. You may resume blood thinners per your regular schedule after the procedure. If you received sedation: If you received sedation for your procedure, you may feel sleepy or not yourself for several hours today. For the next 24 hours avoid activities that requires alertness or coordination. This includes: Driving or operating heavy machinery Using power tools Consuming alcohol Do not make important or complex decisions or sign legal documents in the next 24 hours. Other Instructions: If you feel severe pain at the injection site with swelling and redness, increased leg weakness, a fever of 101 or higher, headache (or worsening headache), changes in vision or urinary retention: Please call the office at , or have someone take you to the nearest emergency room. Tell the emergency room staff that you recently had a spine injection. A doctor must evaluate you for bleeding and injection complications. If you lose control over bowel, bladder, or legs: Go to the nearest emergency room. [facility] Miscellaneous Notes Patient with back pain, tylenol is not helping, patient asking if medication can be sent to [facility]. Patient to see pain clinic on 04/05/24 1) pt is on gabapentin(?) this is a pain reliever 2) tylenol can be used with this 3) pt has been on flexeril in the past .muscle relaxer can we send this in for refill? What pharm? Left message for patient to call office Would like muscle relaxer sent to [email or web address] [place] Patient would like work excuse until she can see pain management Rx sent flexeril to [facility] Dieter, yes to off work Patient advised, letter for work sent to [facility] Telephone encounter Note Patient with back pain, tylenol is not helping, patient asking if medication can be sent to [facility]. Patient to see pain clinic on 04/05/24 [facility] Telephone encounter Note 1) pt is on gabapentin(?) this is a pain reliever 2) tylenol can be used with this 3) pt has been on flexeril in the past .muscle relaxer can we send this in for refill? [facility] pharm[facility] 04-02-2024 Telephone encounter Note Left message for patient to call office [facility] Telephone encounter Note Would like muscle relaxer sent to [email or web address] Patient would like work excuse until she can see pain management [facility] Telephone encounter Note Rx sent flexeril to [facility] Dieter, yes to off work [facility] 04-02-2024 Telephone encounter Note Patient advised, letter for work [facility] Nick sent in a prescription to [facility] for Gabapentin. In note to pharmacy it stated [address] Nick sent in 84, & stated In the sig : to take 3 times daily for 28 days. The pharmacy wanted to clarify if she wanted Mar to take 30 days, or 28 days. Since I did hear Dr Nick confirm with the patient yesterday, at her follow up, that the medication was helping. I told the pharmacist that they should do a 30 day supply, so they changed it to 90. (When she's back from vacation). I am confident that this is what Dr Nick would want. Images from the original note were not included. That is fine. Received: Yesterday Analia Braswell, DO Emma Stroud CMA [facility] Nick sent in a prescription to [facility] for Gabapentin. In note to pharmacy it stated [address] Nick sent in 84, & stated In the sig : to take 3 times daily for 28 days. The pharmacy wanted to clarify if she wanted Mar to take 30 days, or 28 days. Since I did hear Dr Nick confirm with the patient yesterday, at her follow up, that the medication was helping. I told the pharmacist that they should do a 30 day supply, so they changed it to 90. (When she's back from vacation). I am confident that this is what Dr Nick would want. [facility] Telephone encounter Note Images from the original note were not included. That is fine. Received: Yesterday Analia Braswell, DO Emma Stroud CMA [facility] 03-19-2024 History of Present illness Narrative Images from the original note were not included. Subjective: Mar Adame is a 59 y.o. female status post robotic sigmoid colectomy on 01/30/2024 for recurrent sigmoid diverticulitis. She is here for follow-up. Neurontin was prescribed for her pain. Continues to have right lower quadrant burning pain and numbness. This is alleviated by Neurontin. When she tries to come off of Neurontin the pain comes back. She states that the pain right after surgery was an 8/10. Now it as a 5/10 if she was off of the Neurontin. She is tolerating p.o. intake without any issues. She was having good bowel function. Objective: Allergies Allergen Reactions Iodinated Contrast Media Hives and Other (See Comments) Amoxicillin Rash Penicillins Rash Physical Exam General Appearance: Awake, Alert & Oriented x3, No Acute Distress. Neck: Trachea Midline. Pulmonary: Unlabored breathing. Cardiac: Regular rhythm and rate. Abdomen: Soft, non-tender, non-distended. Incisions are clean, dry and intact. No signs of infection. Extremity: No edema Skin: Dry. Non-icteric. No Rash. Eyes: Pupils Equal and Round, Non-icteric Laboratory Data: Lab Results Component Value Date WBC 6.3 03/13/2024 HGB 13.1 03/13/2024 HCT 38.8 03/13/2024 MCV 99 03/13/2024 PLT 367 03/13/2024 Lab Results Component Value Date GLU 119 (H) 03/13/2024 CALCIUM 9.7 03/13/2024 K 4.2 03/13/2024 CO2 26 03/13/2024 CL 102 03/13/2024 BUN 15 03/13/2024 CREATININE 0.81 03/13/2024 No results found for: AMYLASE No results found for: LIPASE Lab Results Component Value Date ALT 18 03/13/2024 AST 16 03/13/2024 ALKPHOS 67 03/13/2024 No results found for: INR , PROTIME Assessment: Mar Adame is a 59 y.o. female status post robotic sigmoid colectomy on 01/30/2024. Complicated by neuropathic pain in the right lower quadrant Plan: Continue gabapentin Follow up with me in 6 weeks documented in this encounter [facility] 03-14-2024 History of Present illness Narrative Images from the original note were not included. [address] [facility] [id number] SUBJECTIVE: Patient ID: Mar Adame is a 59 y.o. female. 69 yo WF with sore throat x 2 day dry cough The following portions of the patient's history were reviewed and updated as appropriate: allergies, current medications, past family history, past medical history, past social history, past surgical history and problem list. REVIEW OF SYSTEMS: Review of Systems PHYSICAL EXAMINATION: Vitals: 03/14/24 1608 BP: 138/80 BP Site: Left Arm BP Postition: Sitting BP CUFF SIZE: M (9-13 inches) Pulse: 80 Resp: 16 Temp: 36.7 C (98 F) TempSrc: Tympanic Weight: 111.6 kg (246 lb) Height: 165.1 cm (5' 5 ) Physical Exam Vitals and nursing note reviewed. Constitutional: Appearance: Normal appearance. HENT: Head: Normocephalic and atraumatic. Nose: Congestion present. Mouth/Throat: Pharynx: Posterior oropharyngeal erythema present. Cardiovascular: Rate and Rhythm: Normal rate and regular rhythm. Pulses: Normal pulses. Heart sounds: Normal heart sounds. Pulmonary: Effort: Pulmonary effort is normal. Breath sounds: Normal breath sounds. Skin: General: Skin is warm and dry. Neurological: General: No focal deficit present. Mental Status: She is alert and oriented to person, place, and time. ASSESSMENT/PLAN: Shavonne was seen today for cough and sore throat. Diagnoses and all orders for this visit: Other acute sinusitis, recurrence not specified Other orders - azithromycin (ZITHROMAX) 250 mg tablet; Take 1 tablet (250 mg total) by mouth in the morning for 5 days. Take 2 tablets the first day, then 1 tablet daily for 4 days.. Follow-up: [place] documented in this encounter [facility] 03-08-2024 History of Present illness Narrative Images from the original note were not included. [address] [facility] [id number] Subjective: Mar Adame is a 59 y.o. female who presents for an Annual Wellness exam. 59 yo WF, nonsmoker, rare ethanol, , pt is starting exercise again and pt is trying to eat more fruits and veggies The following portions of the patient's history were reviewed and updated as appropriate: medications, allergies, past medical history, past surgical history, social history, family history and immunization history Vitals: Vitals: 03/08/24 1526 BP: 132/84 BP Site: Left Arm BP Postition: Sitting BP CUFF SIZE: L (13-17 inches) Pulse: 88 Resp: 16 Temp: 37.2 C (98.9 F) TempSrc: Tympanic Weight: 111.8 kg (246 lb 8 oz) Height: 165.1 cm (5' 5 ) History: Patient Active Problem List Diagnosis Date Noted Preop examination 01/30/2024 Disorder of sacrum 01/05/2024 History of colon polyps 11/15/2022 Seasonal allergies Dermatographia 06/21/2022 Morbid obesity ([facility]) 06/21/2022 Eczema 06/21/2022 Rosacea 05/18/2022 Primary hydronephrosis 07/07/2020 Vitamin D deficiency 10/25/2018 Acne 05/25/2016 Allergic rhinitis 05/25/2016 Depressive disorder 05/25/2016 Diverticular disease 05/25/2016 Lumbar spondylosis 05/25/2016 Tarsal tunnel syndrome 05/25/2016 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 Diverticulosis Eczema 06/21/2022 GERD (gastroesophageal reflux disease) History of colon polyps 11/15/2022 Low back pain Lumbar spondylosis 05/25/2016 Morbid obesity ([facility]) 06/21/2022 Neck pain Primary hydronephrosis 07/07/2020 ==== 07/07/2020 ==== has [...] 05/25/2016 Visual impairment Vitamin D deficiency 10/25/2018 Past Surgical History: Procedure Laterality Date SECTION x 4 CHOLECYSTECTOMY COLONOSCOPY COLONOSCOPY N/A 12/17/2022 Performed by Analia Sharif MD at [facility] ENDOSCOPY COLONOSCOPY DIAGNOSTIC / SCREENING N/A 01/04/2024 Performed by Maverick Nick MD at [facility] COLECTOMY SIGMOID N/A 01/30/2024 Performed by Maverick Nick MD at [facility] INJECTION BLOCK SACROILIAC JOINT Bilateral 01/20/2024 Performed by Simeon Joe MD at [facility] Family History Problem Relation Age of Onset Back Problems Mother Arthritis Mother Brain Tumor Father Coronary artery disease Father Lung cancer Father small cell- at age 81 Dementia Father Autoimmune disease Sister Fibromyalgia Sister Back Problems Brother Pectus excavatum Brother Heart disease Maternal Grandfather Breast cancer Neg Hx Social History Tobacco Use Smoking status: Former Current packs/day: 0.00 Average packs/day: 1 pack/day for 7.0 years (7.0 ttl pk-yrs) Types: Cigarettes Start date: 2005 Quit date: 2013 Years since quittin.6 Smokeless tobacco: Never Substance Use Topics Alcohol use: Yes Comment: rare-2 drinks/year Allergies: Allergies Allergen Reactions Iodinated Contrast Media Hives and Other (See Comments) Amoxicillin Rash Penicillins Rash Immunization History Administered Date(s) Administered Tdap 03/29/2017 Review of Systems: Review of Systems Respiratory: Negative. Cardiovascular: Negative. Gastrointestinal: Negative. Genitourinary: Negative. Objective: BP 132/84 (BP Site: Left Arm, BP Postition: Sitting, BP CUFF SIZE: L (13-17 inches)) Pulse 88 Temp 37.2 C (98.9 F) (Tympanic) Resp 16 Ht 165.1 cm (5' 5 ) Wt 111.8 kg (246 lb 8 oz) BMI 41.02 kg/m Physical Exam Vitals and nursing note reviewed. Constitutional: Appearance: Normal appearance. HENT: Head: Normocephalic and atraumatic. Mouth/Throat: Mouth: Mucous membranes are dry. Cardiovascular: Rate and Rhythm: Normal rate and regular rhythm. Pulses: Normal pulses. Heart sounds: Normal heart sounds. Pulmonary: Effort: Pulmonary effort is normal. Breath sounds: Normal breath sounds. Skin: General: Skin is warm and dry. Neurological: General: No focal deficit present. Mental Status: She is alert and oriented to person, place, and time. Assessment/Plan: Shavonne was seen today for annual exam. Diagnoses and all orders for this visit: Routine general medical examination at a health care facility Plan Outpatient Medications Prior to Visit Medication Sig Dispense Refill gabapentin (NEURONTIN) 300 mg capsule Take 1 capsule (300 mg total) by mouth 3 (three) times a day for 28 days. 84 capsule 0 No facility-administered medications prior to visit. Follow Up: Fasting labs ordered Mammogram and colonoscopy utd documented in this encounter [facility] 02-27-2024 Miscellaneous Notes The patient called the office concerned about returning to work on 02/27/24, as planned. She has had a burning pain in the Right side of her abdomen. She previously spoke to Dr Nick about this, but it was showing signs of improvement so she was hoping to be ready to go back to work when her time was up. When she called the office, she wanted to see what Dr Nick thought she should do. Dr Nick is going to have the patient give it two weeks & come in for another post op recheck at 245 on 03/13/24. She is to remain off of work until then. documented in this encounter [facility] 02-27-2024 Telephone encounter Note The patient called the office concerned about returning to work on 02/27/24, as planned. She has had a burning pain in the Right side of her abdomen. She previously spoke to Dr Nick about this, but it was showing signs of improvement so she was hoping to be ready to go back to work when her time was up. When she called the office, she wanted to see what Dr Nick thought she should do. Dr Nick is going to have the patient give it two weeks & come in for another post op recheck at 245 on 03/13/24. She is to remain off of work until then. [facility] 02-24-2024 Miscellaneous Notes Patient states that she has a burning sensation that makes it impossible to walk. A lot worse for the past 2 days. Sharp pain that mccray and makes her numb on the right side. Patient took no pain medication yesterday and took 2 Tylenol 500 mg one time only this morning. Reason for Disposition [1] MILD-MODERATE pain AND [2] constant and [3] present < 2 hours Protocols used: Abdominal Pain - Female-A-AH Per protocol Caller encouraged to take her Tylenol every 6 hours as directed. She was advised to go to the ED if the Tylenol does not reduce the pain. Patient sates that she understands. documented in this encounter [facility] 02-24-2024 Telephone encounter Note Patient states that she has a burning sensation that makes it impossible to walk. A lot worse for the past 2 days. Sharp pain that mccray and makes her numb on the right side. Patient took no pain medication yesterday and took 2 Tylenol 500 mg one time only this morning. Reason for Disposition [1] MILD-MODERATE pain AND [2] constant and [3] present < 2 hours Protocols used: Abdominal Pain - Female-A-AH Per protocol Caller encouraged to take her Tylenol every 6 hours as directed. She was advised to go to the ED if the Tylenol does not reduce the pain. Patient sates that she understands. [facility] 02-21-2024 History of Present illness Narrative Images from the original note were not included. Subjective: Mar Adame is a 59 y.o. female status post robotic sigmoid colectomy on 01/30/2024 for recurrent sigmoid diverticulitis. She is here for follow-up. CT abdomen pelvis was significant for postop changes. Labs were unremarkable. She denies any further blood in her stools. She is tolerating p.o.. She notes alternating bowel habits. She continues to complain of right lower quadrant pain, especially with pressure. Objective: Pulse: [83] 83 BP: (124)/(70) 124/70 Allergies Allergen Reactions Iodinated Contrast Media Hives and Other (See Comments) Amoxicillin Rash Penicillins Rash Physical Exam General Appearance: Awake, Alert & Oriented x3, No Acute Distress. Neck: Trachea Midline. Pulmonary: Unlabored breathing. Cardiac: Regular rhythm and rate. Abdomen: Soft, non-tender, non-distended. Incisions are clean, dry and intact. No signs of infection. Extremity: No edema Skin: Dry. Non-icteric. No Rash. Eyes: Pupils Equal and Round, Non-icteric Laboratory Data: Lab Results Component Value Date WBC 5.6 02/15/2024 HGB 13.1 02/15/2024 HCT 38.3 02/15/2024 MCV 99 02/15/2024 PLT 404 02/15/2024 Lab Results Component Value Date GLU 118 (H) 02/15/2024 CALCIUM 9.1 02/15/2024 K 4.0 02/15/2024 CO2 23 02/15/2024 CL 106 02/15/2024 BUN 17 02/15/2024 CREATININE 0.76 02/15/2024 No results found for: AMYLASE No results found for: LIPASE Lab Results Component Value Date ALT 17 04/29/2023 AST 19 04/29/2023 ALKPHOS 60 04/29/2023 No results found for: INR , PROTIME Assessment: Mar Adame is a 59 y.o. female status post robotic sigmoid colectomy on 01/30/2024 Plan: Right lower quadrant pain may be musculoskeletal at this point. Reassurance given. Recommend Tylenol for pain. Regular diet Metamucil Follow up in 4 weeks Okay to return to work next Tuesday documented in this encounter [facility] 02-14-2024 History of Present illness Narrative [facility] [address] [place] [address] Patient: Mar Adame Sex: female : 1965 Age: 59 y.o. PCP: Justina Valdez MD 02/14/2024 Mar Adame is here for a(n) post procedure follow up 01-20-2024 Bilateral Sacroiliac Joint with 80% relief x 10 days and 50% relief that continues. Patient had a colon resection on January 29 and has been having pain in back and abdomen since and unsure if current pain is from surgery or back.. . Date of onset of pain: 2022 , pain has lasted greater than 3 months. Pain scale before treatment: 8/10 Pre-op pain score: 6/10 Post-op pain score: 5/10 2 hour post-op pain score: 5/10 4 hour post-op pain score: 3/10 Percentage of relief after and duration: 80% relief x 10 days and 40% relief currently Pain scale after treatment: 2/10 Chief Complaint Patient presents with Back Pain HPI: PT x 1 week at [facility] in September or October 2023 without relief (1 session in the pool). Patient has a consult tomorrow at [facility] to setup future PT 01-20-2024 Bilateral Sacroiliac Joint with 80% relief x 10 days. Patient had a colon resection on January 29 and has been having pain in back and abdomen since and unsure if current pain is from surgery or back..Pre procedure pain 6/10. Post procedure pain 2/10. Back Pain The current episode started more than 1 month ago (09/27/2023 is when pain became more severe with Diverticulitis attack). The problem occurs constantly. The problem has been gradually improving since onset. The pain is present in the lumbar spine, gluteal and sacro-iliac. The quality of the pain is described as stabbing (constant aching). The pain radiates to the right thigh and left thigh (bilateral hips radiating down into upper posterior thighs). The pain is at a severity of 3/10 (pain can reach 5/10). The pain is moderate. Worse during: worse in the morning and at night. Exacerbated by: sitting, standing, walking, stairs, bending, lifting, lying, twisting, pushing/pulling, cough/sneeze, transitioning. Associated symptoms include leg pain (bilateal upper posterior thighs), numbness (left hand fingers and LLE w/ activity), tingling (left hand fingers and LLE with activity) and weakness (BLE). Pertinent negatives include no bladder incontinence, bowel incontinence, fever or headaches. She has tried muscle relaxant, heat, ice, home exercises and walking (morphine, norco w/ mild relief; MDP with significant relief briefly; Tylenol w/ no relief; no NSAIDs due to enlarged kidney; ice/heat w/ moderate relief;) for the symptoms. The effect of pain on patient's ADLS: Moderate Impairment. 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 Diverticulosis Eczema 06/21/2022 GERD (gastroesophageal reflux disease) History of colon polyps 11/15/2022 Low back pain Lumbar spondylosis 05/25/2016 Morbid obesity (CMS-HCC) 06/21/2022 Neck pain Primary hydronephrosis 07/07/2020 ==== 07/07/2020 ==== has [...] 05/25/2016 Visual impairment Vitamin D deficiency 10/25/2018 Past Surgical History: Procedure Laterality Date SECTION x 4 CHOLECYSTECTOMY COLONOSCOPY COLONOSCOPY N/A 12/17/2022 Performed by Analia Sharif MD at [facility] ENDOSCOPY COLONOSCOPY DIAGNOSTIC / SCREENING N/A 01/04/2024 Performed by Maverick Nick MD at [facility] COLECTOMY SIGMOID N/A 01/30/2024 Performed by Maverick Nick MD at [facility] INJECTION BLOCK SACROILIAC JOINT Bilateral 01/20/2024 Performed by Simeon Joe MD at [facility] Allergies Allergen Reactions Iodinated Contrast Media Hives and Other (See Comments) Amoxicillin Rash Penicillins Rash Family History Problem Relation Age of Onset Back Problems Mother Arthritis Mother Brain Tumor Father Coronary artery disease Father Lung cancer Father small cell- at age 81 Dementia Father Autoimmune disease Sister Fibromyalgia Sister Back Problems Brother Pectus excavatum Brother Heart disease Maternal Grandfather Breast cancer Neg Hx Social History Socioeconomic History Marital status: Spouse name: Not on file Number of children: Not on file Years of education: Not on file Highest education level: Not on file Occupational History Not on file Tobacco Use Smoking status: Former Current packs/day: 0.00 Average packs/day: 1 pack/day for 7.0 years (7.0 ttl pk-yrs) Types: Cigarettes Start date: 2005 Quit date: 2012 Years since quittin.5 Smokeless tobacco: Never Vaping Use Vaping status: Never Used Substance and Sexual Activity Alcohol use: Yes Comment: rare-2 drinks/year Drug use: Never Sexual activity: Yes Partners: Male Other Topics Concern Not on file Social History Narrative Not on file Social Determinants of Health Financial Resource Strain: Low Risk (05/30/2023) Overall Financial Resource Strain (CARDIA) Difficulty of Paying Living Expenses: Not hard at all Food Insecurity: No Food Insecurity (02/14/2024) Hunger Screening Food Insecurity - Worry: Never True Food Insecurity - Inability: Never True Transportation Needs: No Transportation Needs (01/30/2024) PRAPARE - Transportation Lack of Transportation (Medical): No Lack of Transportation (Non-Medical): No Physical Activity: Inactive (06/21/2022) Exercise Vital Sign Days of Exercise per Week: 0 days Minutes of Exercise per Session: 0 min Stress: No Stress Concern Present (06/21/2022) [employer] [place] [employer] - Occupational Stress Questionnaire Feeling of Stress : Not at all Social Connections: Socially Integrated (06/21/2022) Social Connection and Isolation Panel [NHANES] Frequency of Communication with Friends and Family: More than three times a week Frequency of Social Gatherings with Friends and Family: More than three times a week Attends [employer] Services: More than 4 times per year Active Member of Clubs or Organizations: Yes Attends Club or Organization Meetings: More than 4 times per year Marital Status: Interpersonal Safety: Not At Risk (01/30/2024) Humiliation, Afraid, Rape, and Kick questionnaire Fear of Current or Ex-Partner: No Emotionally Abused: No Physically Abused: No Sexually Abused: No Housing Instability: Low Risk (01/30/2024) Housing Instability Housing Instability: No Review of Systems Constitutional: Negative. Negative for fever. HENT: Negative. Eyes: Negative. Respiratory: Negative. Cardiovascular: Negative. Gastrointestinal: Positive for blood in stool (patient having blood in stool after colon resection January 29. Surgeon ordered CT scan). Negative for bowel incontinence. Endocrine: Negative. Genitourinary: Negative. Negative for bladder incontinence. Musculoskeletal: Positive for back pain. Skin: Negative. Neurological: Positive for tingling (left hand fingers and LLE with activity), weakness (BLE) and numbness (left hand fingers and LLE w/ activity). Negative for headaches. Vital Signs: BP 136/86 (BP Site: Right Arm, BP Postition: Sitting) Pulse 80 Resp 18 SpO2 97% Physical Exam: GENERAL - Healthy patient that appears stated age. HEENT - Normocephalic / Atraumatic, Extraoccular movements intact, trachea midline, thyroid within normal limits. CV - pulse regular, Warm extremities with appropriate color of nailbeds. RESP - No obvious wheezing, No Shortness of Breath, No overexertion response to exam maneuvers. COORDINATION - remains intact. PSYCH - Alert and Oriented x4, Attentive and appropriate, constitutionally normal, displays normal mood and affect per situation, answered questions appropriately during examination, demonstrated appropriate attention during discussion, demonstrated appropriate cognitive reasoning and understanding of the medical condition by asking appropriate questions regarding the diagnosis and risks/benefits/alternatives of treatment modalities. No obvious deficits in memory, reasoning, or intellect. Lumbar: SKIN - No rashes or bruising in the area of the patient s pain. LYMPH NODES - demonstrate no obvious enlargement. EXTREMITIES - Lower extremities are warm, with minimal edema and palpable pulses. Tenderness to palpation noted in the lumbar spine and paraspinal musculature. Pain is elicited with flexion, extension, and lateral rotation of the lumbar spine. Range of motion is diminished with these motions due to pain. Facet palpation is noted to be somewhat tender and facet loading maneuvers are mildly positive, but not concordant with the patient s normal pain complaints. STRENGTH - noted to be 5 out of 5 all muscle groups bilateral lower extremities including muscles involving hip flexion and abduction, knee flexion and extension, as well as foot dorsiflexion and plantarflexion. No notable atrophy, fasciculations or spasm. SENSORY - No notable sensory deficits in the bilateral lower extremities to touch or pinprick in all dermatomal distributions. Straight Leg Raise is negative. Gait is normal. Assessment/Treatment Plan: Shavonne was seen today for back pain. Diagnoses and all orders for this visit: Lumbar spondylosis Monitor Follow up 6 weeks The medications prescribed have been reviewed for medication interactions/contraindications and/or for upcoming procedures: continue current medication regimen without any changes. DISCUSSION: Treatment options discussed with patient and all questions answered to patient's satisfaction. Discussed the rules and regulations surrounding prescription of opioids and compliance at length. Failure to follow the rules and regulation will result in tapering and discontinuation of medications if applicable. Prescribed medication that requires intensive monitoring for toxicity We do not currently prescribe any controlled substance from this practice. It does appear that the patient benefited from the previous injection and the benefit has continued through this visit. At this time, we will monitor the patient s symptoms from an interventional standpoint and consider another injection in the future if the patient s symptoms return or intensify severely. The patient was made aware that they should call if symptoms worsen or if their pain begins to have a negative impact on their quality of life and activities of daily living again. The spine model was demonstrated and MRI was reviewed and used to explain the condition. OARRS: Reviewed. Scribe Statement: Scribed for and in the presence of ZAHRA CROWLEY by Lidya Escamilla CNA. Provider Statement: I, ZAHRA CROWLEY, personally performed the services described in the documentation, as scribed by Lidya Escamilla CNA in my presence, and it is both accurate and complete. Lidya Escamilla CNA 02/14/24 [id number] ZAHRA Crowley 02/14/24 [id number] documented in this encounter [facility] 02-14-2024 History of Present illness Narrative Images from the original note were not included. Subjective: Mar Adame is a 59 y.o. female status post robotic sigmoid colectomy on 01/30/2024 for recurrent sigmoid diverticulitis. She is here for postop visit. She has been tolerating p.o. without any nausea or vomiting. She has been having a hard time with her bowel movements. She was not going as often and when she does go she reports diarrhea. She also notes at least 3 episodes of bright red blood per rectum. Amount a quarter to half a cup. This is intermittent. She denies any chest pain, shortness of breath or palpitations. She notes right lower quadrant pain/discomfort. Denies fevers or chills. Objective: Allergies Allergen Reactions Iodinated Contrast Media Hives and Other (See Comments) Amoxicillin Rash Penicillins Rash Physical Exam General Appearance: Awake, Alert & Oriented x3, No Acute Distress. Neck: Trachea Midline. Pulmonary: Unlabored breathing. Cardiac: Regular rhythm and rate. Abdomen: Soft, non-tender, non-distended. Incisions are clean, dry and intact. No signs of infection. There is induration around right lower quadrant incision, consistent with postop changes. Extremity: No edema Skin: Dry. Non-icteric. No Rash. Eyes: Pupils Equal and Round, Non-icteric Laboratory Data: Lab Results Component Value Date WBC 5.6 02/15/2024 HGB 13.1 02/15/2024 HCT 38.3 02/15/2024 MCV 99 02/15/2024 PLT 404 02/15/2024 Lab Results Component Value Date GLU 118 (H) 02/15/2024 CALCIUM 9.1 02/15/2024 K 4.0 02/15/2024 CO2 23 02/15/2024 CL 106 02/15/2024 BUN 17 02/15/2024 CREATININE 0.76 02/15/2024 No results found for: AMYLASE No results found for: LIPASE Lab Results Component Value Date ALT 17 04/29/2023 AST 19 04/29/2023 ALKPHOS 60 04/29/2023 No results found for: INR , PROTIME Assessment: Mar Adame is a 59 y.o. female status post robotic sigmoid colectomy on 01/30/2024 Plan: Obtain labs including CBC, BMP, UA CT abdomen and pelvis Continue regular diet Monitor bleeding Addendum Labs were obtained, CBC and BMP were both normal. UA showed trace leukocyte esterase. Obtain urine culture CT abdomen pelvis performed postop changes noted. Otherwise unremarkable. Attempted to call patient with results. Will try again, follow up in 2 weeks documented in this encounter [facility] 01-29-2024 Miscellaneous Notes ----- Message from Stephanie sent at 01/29/2024 2:44 PM EDT ----- pt is supposed to have colon resection done tomorrow and she vomited last 8 oz of solution she is supposed to take worried not sure what to do Reason for Disposition Bowel prep for colonoscopy, questions about Answer Assessment - Initial Assessment Questions 1. DATE/TIME: When did you have your colonoscopy? Having colon resection 01/30/24 at 0800 2. MAIN CONCERN: What is your main concern right now? What questions do you have? Vomited last 8 oz of prep 3. ABDOMEN PAIN: Are you having any abdomen (belly or stomach) pain? If Yes, ask: How bad is it? (e.g., Scale 1-10; mild, moderate, severe). - MILD (1-3): doesn't interfere with normal activities, abdomen soft and not tender to touch - MODERATE (4-7): interferes with normal activities or awakens from sleep, abdomen tender to touch - SEVERE (8-10): excruciating pain, doubled over, unable to do any normal activities no 4. OTHER SYMPTOMS: What other symptoms are you having? (e.g., rectal bleeding, bloating or feeling gassy, passing gas, vomiting, dizziness, fever). no 5. ONSET: When did your symptoms start? This afternoon 6. PATTERN: Is the symptom(s) constant or does it come and go? Is your symptom(s) getting worse, better, or staying the same? na Protocols used: Colonoscopy Symptoms and [id number] States was able to complete and retain all prep except last 8 oz she threw up-- still had Gatorade to drink- states is have muddy water looking stool- Advised to finish rest of prep-- and let pre op know in the AM-- agreeable denies further questions documented in this encounter [facility] 01-29-2024 Telephone encounter Note ----- Message from Stephanie sent at 01/29/2024 2:44 PM EDT ----- pt is supposed to have colon resection done tomorrow and she vomited last 8 oz of solution she is supposed to take worried not sure what to do [facility] 01-29-2024 Telephone encounter Note Reason for Disposition Bowel prep for colonoscopy, questions about Answer Assessment - Initial Assessment Questions 1. DATE/TIME: When did you have your colonoscopy? Having colon resection 01/30/24 at 0800 2. MAIN CONCERN: What is your main concern right now? What questions do you have? Vomited last 8 oz of prep 3. ABDOMEN PAIN: Are you having any abdomen (belly or stomach) pain? If Yes, ask: How bad is it? (e.g., Scale 1-10; mild, moderate, severe). - MILD (1-3): doesn't interfere with normal activities, abdomen soft and not tender to touch - MODERATE (4-7): interferes with normal activities or awakens from sleep, abdomen tender to touch - SEVERE (8-10): excruciating pain, doubled over, unable to do any normal activities no 4. OTHER SYMPTOMS: What other symptoms are you having? (e.g., rectal bleeding, bloating or feeling gassy, passing gas, vomiting, dizziness, fever). no 5. ONSET: When did your symptoms start? This afternoon 6. PATTERN: Is the symptom(s) constant or does it come and go? Is your symptom(s) getting worse, better, or staying the same? na Protocols used: Colonoscopy Symptoms and [id number]-N-[id number] States was able to complete and retain all prep except last 8 oz she threw up-- still had Gatorade to drink- states is have muddy water looking stool- Advised to finish rest of prep-- and let pre op know in the AM-- agreeable denies further questions [place] 01-13-2024 Instructions Lesly Stubbs RN - 01/13/2024 9:45 AM EDT Preoperative Education Checklist- General Surgery date: 01/30/24 Surgery time: 8a Arrival time: 610a 1. Bring a photo ID and your insurance card with you the day of surgery. You will check in at the main lobby of the [facility]- registration desk is straight ahead as soon as you walk in. Tell them you are here for surgery. 2. If you have a Living Will/Durable Power of Cardiovascular Radiologic Technologist for Health Care that is not on file here, please bring a copy the day of surgery. 3. Please shower/bathe the night before surgery with the provided soap or wipes. Do not shower the morning of surgery- you will do use wipes when you arrive here at the hospital before getting into your surgical gown. Do not shave the area of your procedure for 2 days prior to your surgery. 4. NO powder, lotion, perfume/cologne, aftershave, make-up, deodorant, or hair products after you have bathed. 5. NO nail telugu/acrylic on at least one finger. If you are having a hand, wrist or foot surgery then all nail telugu and artificial/acrylic nails must be removed from that hand or foot. 6. Avoid ALL Aspirin and non-steroidal anti-inflammatory drugs and certain vitamins (Ibuprofen, Advil, Aleve, Excedrin, Meloxicam, Celebrex, fish/krill oil, etc.) for 7 days prior to surgery as instructed by your surgeon and/or your prescribing doctor. Tylenol IS ALLOWED. If you are on Ticlid, Xarelto, Eliquis, Pradaxa, Plavix or Coumadin, please check with your prescribing doctor for instructions for when to stop them. 7. If you use an inhaler, continue to use it routinely. 8. Nothing to eat or drink (not even water, gum, mints, or hard candy!) AFTER midnight prior to your surgery. 9. Take only medications that you are instructed to on the morning of surgery with a TINY SIP OF WATER. 10. Choose a responsible adult that will be able to drive you home when you are discharged from your hospital stay for your surgery and can stay with you in your home for 24 hours after your procedure. You must NOT drive any vehicle or operate any machinery for 24 hours after surgery. 11. When you dress for your appointment, please wear loose fitting clothing that is appropriate to accommodate your surgical area procedure. BRING WITH YOU ANY DEVICES YOU MAY NEED: JONATHAN hose, ice machine, sling/swath, brace or special shoe, oversized zip-up or button up shirt, CPAP machine if staying overnight. 12. Do NOT wear jewelry, watches, or any piercings or metal for surgery- leave these valuables and money at home. 13. Do NOT wear contact lenses for surgery- glasses are okay if needed. 14. The anesthesiologist will talk with you the day of surgery and will ask you to sign a Consent Form. 15. Refrain from smoking or any type of tobacco use for at least 8 hours and marijuana for 24 hours prior to arrival for your surgery. 16. If a GREEN BLOOD band is given to you, please bring it with you for the day of surgery. 17. Notify your surgeon if you develop any illness before your surgery. 18. If you are staying overnight, please DO NOT BRING your home medications with you. 19. If you have any questions prior to surgery, please call the Preadmission Testing office at [phone], Mon.-Fri. 7 a.m.-3 p.m. Leave a voicemail if needed. No current outpatient medications on file. How to Avoid an Infection after Your Surgery Your doctor will give you specific instructions, but remember: -ALWAYS wash hands before caring for your incision. -No picking, scratching, or rubbing your incision. -No creams, lotion, powder, rubbing alcohol or hydrogen peroxide on the incision (can harm the tissue and slow healing). -Your doctor will give you specific instructions for what type of dressing you will need and how often it will need changed for infection purposes. -No tight clothing on incision. -Do not allow anyone to touch your incision unless they are cleaning, checking, or redressing it (be sure they wash their hands first). -No contact of your incision with pets; avoid sleeping with pets. -Take full course of antibiotic if prescribed for you after surgery- do not stop unless directed to by your physician. You may also be given an antibiotic prior to your surgery to help prevent surgical site infections. -Eat a healthy and varied diet including proteins, fruits, and vegetables to help promote wound healing and keep blood sugars under control if you are diabetic. -Smoking slows the healing process by decreasing the amount of oxygen in your blood that is needed for tissue healing. Try to avoid or stop smoking if possible. LOOK at your incision each morning and each night to check the progress of healing. Some soreness, numbness, itching and/or mild bruising around the incision is normal. Call your doctor if you notice any of the following: -Increased redness or hardening around the incision area. -Increased pain at the incision site. -Incision feels hot to the touch. -Swelling or pulling apart of the incision edges. -Yellow or green drainage or foul odor coming from the incision. -Bleeding from the incision (apply pressure as needed). -Fever higher than 101 degrees Fahrenheit for more than 4 hours. SHOWERING: Your doctor will give you specific instructions, but remember: -Be careful getting into and out of the shower. -Showers should be quick (5 minutes or less). -Use a clean washcloth to gently wash your incision with soap and water and pat the area dry with a clean towel. -No re-using wash cloths or towels; get a fresh one to clean your incision. -Do not soak in the bathtub, go swimming or use a hot tub (Jacuzzi), or perform activities where your incision is submerged in water or exposed to any fluids or substances until instructed by your doctor. -If your have the sticky strips (steri-strips) over the incision, it is OK to shower with them. Do not remove them. Let them fall off on their own. If you have a question, call your doctor s office. Go to the follow-up appointment with your doctor. documented in this encounter [facility] 01-10-2024 History of Present illness Narrative Images from the original note were not included. Chief Complaint: Diverticulitis History of Present Illness: Mar Adame is a 58 y.o. female presents to the office to discuss recurrent diverticulitis. Over the last 2 years, she has had at least 2-3 episodes of diverticulitis per year. The last episode of diverticulitis she had was in October, this required hospitalization for IV antibiotics. She denies any history of abscess or perforation. She states that she has used all her vacation and PTO time over the last 2 years for her diverticulitis episodes. She is worried that her diverticulitis continues to recur. She is currently off of antibiotics and reports that her left lower quadrant pain is better. She is on a low-fiber diet. She reports alternating bowel movements. She notes thin caliber stools. Her past surgical history includes laparoscopic cholecystectomy. She does not take any medications. She does have morbid obesity with a BMI of 41. She is a nonsmoker. Interval update She underwent colonoscopy diverticulosis in sigmoid colon and descending colon. No polyps or masses. She is here for follow-up and to discuss surgery. She is denying any abdominal pain, nausea or vomiting. She is having bowel movements. She notes back pain, she was recently diagnosed with bulging disc. She is undergoing physical therapy and is going to have injections for this. HPI Review of Systems Constitutional: Negative for fever and chills. Respiratory: Negative for shortness of breath. Cardiovascular: Negative for chest pain and palpitations. Gastrointestinal: Positive for abdominal pain. Negative for nausea and vomiting. Genitourinary: Negative for dysuria and difficulty urinating. Skin: Negative for rash and wound. Allergic/Immunologic: Negative for immunocompromised state. Neurological: Negative for weakness and light-headedness. Hematological: Does not bruise/bleed easily. Psychiatric/Behavioral: Negative for behavioral problems and confusion. 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 Diverticulosis Eczema 06/21/2022 GERD (gastroesophageal reflux disease) History of colon polyps 11/15/2022 Low back pain Lumbar spondylosis 05/25/2016 Morbid obesity ([facility]) 06/21/2022 Neck pain Primary hydronephrosis 07/07/2020 ==== 07/07/2020 ==== has [...] 05/25/2016 Visual impairment Vitamin D deficiency 10/25/2018 Past Surgical History: Procedure Laterality Date SECTION CHOLECYSTECTOMY COLONOSCOPY COLONOSCOPY N/A 12/17/2022 Performed by Analia Sharif MD at [facility] ENDOSCOPY COLONOSCOPY DIAGNOSTIC / SCREENING N/A 01/04/2024 Performed by Maverick Nick MD at [facility] Allergies Allergen Reactions Iodinated Contrast Media Hives and Other (See Comments) Amoxicillin Rash Penicillin G Rash Penicillins Rash Current Outpatient Medications: metroNIDAZOLE (FlagyL) 500 mg tablet, Take 1 tablet (500 mg total) by mouth 3 (three) times a day for 1 day., Disp: 3 tablet, Rfl: 0 neomycin (MYCIFRADIN) 500 mg tablet, Take 2 tablets (1,000 mg total) by mouth 3 (three) times a day for 1 day., Disp: 6 tablet, Rfl: 0 Social History Socioeconomic History Marital status: Spouse [...] 2013 Years since quittin.4 Smokeless tobacco: Never Vaping Use Vaping status: Never Used Substance and Sexual Activity Alcohol use: Yes Comment: rare-2 drinks/year Drug use: Never Sexual activity: Yes Partners: Male Other Topics Concern Not on file Social History Narrative Not on file Social Determinants of Health Financial Resource Strain: Low Risk (05/30/2023) Overall Financial Resource Strain (CARDIA) Difficulty of Paying Living Expenses: Not hard at all Food Insecurity: No Food Insecurity (01/10/2024) Hunger Screening Food Insecurity - Worry: Never True Food Insecurity - Inability: Never True Transportation Needs: No Transportation Needs (05/30/2023) PRAPARE - Transportation Lack of Transportation (Medical): No Lack of Transportation (Non-Medical): No Physical Activity: Inactive (06/21/2022) Exercise Vital Sign Days of Exercise per Week: 0 days Minutes of Exercise per Session: 0 min Stress: No Stress Concern Present (06/21/2022) [employer] - Occupational Stress Questionnaire Feeling of Stress : Not at all Social Connections: Socially Integrated (06/21/2022) Social Connection and Isolation Panel [NHANES] Frequency of Communication with Friends and Family: More than three times a week Frequency of Social Gatherings with Friends and Family: More than three times a week Attends [employer] Services: More than 4 times per year Active Member of Clubs or Organizations: Yes Attends Club or Organization Meetings: More than 4 times per year Marital Status: Interpersonal Safety: Not At Risk (06/21/2022) Humiliation, Afraid, Rape, and Kick questionnaire Fear of Current or Ex-Partner: No Emotionally Abused: No Physically Abused: No Sexually Abused: No Housing Instability: Low Risk (05/30/2023) Housing Instability Housing Instability: No Family History Problem Relation Age of Onset Back Problems Mother Arthritis Mother Brain Tumor Father Coronary artery disease Father Lung cancer Father small cell- at age 81 Dementia Father Autoimmune disease Sister Fibromyalgia Sister Back Problems Brother Pectus excavatum Brother Heart disease Maternal Grandfather Breast cancer Neg Hx Physical Exam Vitals reviewed. Constitutional: Appearance: Normal appearance. HENT: Head: Normocephalic and atraumatic. Eyes: Pupils: Pupils are equal, round, and reactive to light. Cardiovascular: Rate and Rhythm: Normal rate. Pulmonary: Effort: Pulmonary effort is normal. Abdominal: General: There is no distension. Palpations: Abdomen is soft. Tenderness: There is no abdominal tenderness. Musculoskeletal: General: No swelling. Skin: General: Skin is warm and dry. Neurological: Mental Status: She is alert and oriented to person, place, and time. Mental status is at baseline. Psychiatric: Mood and Affect: Mood normal. Behavior: Behavior normal. Vital Signs: Blood pressure (!) 156/91, pulse 71, height 162.6 cm (5' 4 ), weight 112.8 kg (248 lb 9.6 oz). Respiratory Source: No data recorded Admission Weight: Weight: 112.8 kg (248 lb 9.6 oz) Labs: Lab Results Component Value Date WBC 4.7 04/29/2023 HGB 13.2 04/29/2023 HCT 39.1 04/29/2023 MCV 99 04/29/2023 PLT 327 04/29/2023 Lab Results Component Value Date GLU 113 (H) 04/29/2023 CALCIUM 9.7 04/29/2023 K 4.3 04/29/2023 CO2 27 04/29/2023 CL 104 04/29/2023 BUN 15 04/29/2023 CREATININE 0.83 04/29/2023 No results found for: AMYLASE No results found for: LIPASE Lab Results Component Value Date ALT 17 04/29/2023 AST 19 04/29/2023 ALKPHOS 60 04/29/2023 No results found for: INR , PROTIME Imaging: CT abdomen and pelvis performed on 11/02/2023, 11/08/2023, 11/18/2023 images were all personally reviewed and interpreted. Report was also reviewed. Diverticulitis of the sigmoid and distal descending colon. No signs of perforation such as abscess or free air. CT abdomen pelvis performed on 03/16/23 - report was reviewed and showed sigmoid diverticulitis. Assessment: Mar Adame is a 58 y.o.female with recurrent sigmoid diverticulitis. Diverticulitis large intestine w/o perforation or abscess w/o bleeding [K57.32] Plan: Schedule for elective MIS sigmoid colectomy, possible diverting loop ileostomy, possible open including risks and benefits. Given morbid obesity, patient aware of increased risk of perioperative complications Continue low-fiber diet. Weight loss and exercise encouraged. Antibiotic + mechanical bowel prep The reasons for surgery, alternatives to surgery, and natural history of the disease without surgery were addressed with the patient. We discussed the potential risks and benefits of the surgery. I gave ample opportunity for the patient to ask questions which I answered to their apparent satisfaction. She seemed to understand and provided consent. Evaluation included: Preparing to see the patient (e.g., review of tests) Obtaining and/or reviewing separately obtained history Performing a medically appropriate examination and/or evaluation Counseling and educating the patient/family/caregiver Referring and communicating with other health home care assistant Maverick Nick MD [facility] [place] documented in this encounter [facility] 01-05-2024 History of Present illness Narrative [facility] [address] [place] [address] Patient: Mar Adame Sex: female : 1965 Age: 58 y.o. PCP: Justina Valdez MD 01/05/2024 Mar Adame is here for a(n) initial consultation. Chief Complaint Patient presents with Back Pain HPI: PT x 1 week at [facility] in September or October 2023 without relief (1 session in the pool). Patient has a consult tomorrow at [facility] to setup future PT Back Pain The current episode started more than 1 month ago (09/27/2023 is when pain became more severe with Diverticulitis attack). The problem occurs constantly. The problem has been gradually worsening since onset. The pain is present in the lumbar spine, gluteal and sacro-iliac. The quality of the pain is described as stabbing (constant aching). The pain radiates to the right thigh and left thigh (bilateral hips radiating down into upper posterior thighs). The pain is at a severity of 8/10 (6/10 current; can reach 8/10 with activity). The pain is severe. Worse during: worse in the morning and at night. Exacerbated by: sitting, standing, walking, stairs, bending, lifting, lying, twisting, pushing/pulling, cough/sneeze, transitioning. Associated symptoms include leg pain (bilateal upper posterior thighs), numbness (left hand fingers and LLE w/ activity), tingling (left hand fingers and LLE with activity) and weakness (BLE). Pertinent negatives include no bladder incontinence, bowel incontinence, fever or headaches. She has tried muscle relaxant, heat, ice, home exercises and walking (morphine, norco w/ mild relief; MDP with significant relief briefly; Tylenol w/ no relief; no NSAIDs due to enlarged kidney; ice/heat w/ moderate relief;) for the symptoms. The effect of pain on patient's ADLS: Moderate Impairment. 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 Diverticulosis Eczema 06/21/2022 GERD (gastroesophageal reflux disease) History of colon polyps 11/15/2022 Low back pain Lumbar spondylosis 05/25/2016 Morbid obesity (CMS-HCC) 06/21/2022 Neck pain Primary hydronephrosis 07/07/2020 ==== 07/07/2020 ==== has [...] 05/25/2016 Visual impairment Vitamin D deficiency 10/25/2018 Past Surgical History: Procedure Laterality Date SECTION CHOLECYSTECTOMY COLONOSCOPY COLONOSCOPY N/A 12/17/2022 Performed by Analia Sharif MD at [facility] ENDOSCOPY COLONOSCOPY DIAGNOSTIC / SCREENING N/A 01/04/2024 Performed by Maverick Nick MD at [facility] Allergies Allergen Reactions Iodinated Contrast Media Hives and Other (See Comments) Penicillins Rash Family History Problem Relation Age of Onset Back Problems Mother Arthritis Mother Brain Tumor Father Coronary artery disease Father Lung cancer Father small cell- at age 81 Dementia Father Autoimmune disease Sister Fibromyalgia Sister Back Problems Brother Pectus excavatum Brother Breast cancer Neg Hx Social History Socioeconomic History Marital status: Spouse [...] 2013 Years since quittin.4 Smokeless tobacco: Never Vaping Use Vaping status: Never Used Substance and Sexual Activity Alcohol use: Not Currently Comment: rare-2 drinks/year Drug use: Never Sexual activity: Yes Other Topics Concern Not on file Social History Narrative Not on file Social Determinants of Health Financial Resource Strain: Low Risk (05/30/2023) Overall Financial Resource Strain (CARDIA) Difficulty of Paying Living Expenses: Not hard at all Food Insecurity: No Food Insecurity (01/05/2024) Hunger Screening Food Insecurity - Worry: Never True Food Insecurity - Inability: Never True Transportation Needs: No Transportation Needs (05/30/2023) PRAPARE - Transportation Lack of Transportation (Medical): No Lack of Transportation (Non-Medical): No Physical Activity: Inactive (06/21/2022) Exercise Vital Sign Days of Exercise per Week: 0 days Minutes of Exercise per Session: 0 min Stress: No Stress Concern Present (06/21/2022) [employer] - Occupational Stress Questionnaire Feeling of Stress : Not at all Social Connections: Socially Integrated (06/21/2022) Social Connection and Isolation Panel [NHANES] Frequency of Communication with Friends and Family: More than three times a week Frequency of Social Gatherings with Friends and Family: More than three times a week Attends [employer] Services: More than 4 times per year Active Member of Clubs or Organizations: Yes Attends Club or Organization Meetings: More than 4 times per year Marital Status: Interpersonal Safety: Not At Risk (06/21/2022) Humiliation, Afraid, Rape, and Kick questionnaire Fear of Current or Ex-Partner: No Emotionally Abused: No Physically Abused: No Sexually Abused: No Housing Instability: Low Risk (05/30/2023) Housing Instability Housing Instability: No Review of Systems Constitutional: Negative for chills and fever. Eyes: Negative. Respiratory: Negative. Cardiovascular: Negative. Gastrointestinal: Negative. Negative for bowel incontinence. Endocrine: Negative. Genitourinary: Negative. Negative for bladder incontinence. Musculoskeletal: Positive for back pain. Skin: Negative. Neurological: Positive for tingling (left hand fingers and LLE with activity), weakness (BLE) and numbness (left hand fingers and LLE w/ activity). Negative for headaches. Vital Signs: BP (!) 149/94 (BP Site: Left Arm, BP Postition: Sitting) Pulse 63 Resp 18 Ht 162.6 cm (5' 4 ) Wt 112 kg (247 lb) SpO2 100% BMI 42.40 kg/m Physical Exam: GENERAL - Healthy patient that appears stated age. HEENT - Normocephalic / Atraumatic, Extraoccular movements intact, trachea midline, thyroid within normal limits. CV - pulse regular, Warm extremities with appropriate color of nailbeds. RESP - No obvious wheezing, No Shortness of Breath, No overexertion response to exam maneuvers. COORDINATION - remains intact. PSYCH - Alert and Oriented x4, Attentive and appropriate, constitutionally normal, displays normal mood and affect per situation, answered questions appropriately during examination, demonstrated appropriate attention during discussion, demonstrated appropriate cognitive reasoning and understanding of the medical condition by asking appropriate questions regarding the diagnosis and risks/benefits/alternatives of treatment modalities. No obvious deficits in memory, reasoning, or intellect. Lumbar: SKIN - No rashes or bruising in the area of the patient s pain. LYMPH NODES - demonstrate no obvious enlargement. EXTREMITIES - Lower extremities are warm, with minimal edema and palpable pulses. No significant tenderness to palpation noted in the lumbar spine and paraspinal musculature. Mild pain is elicited with flexion, extension, and lateral rotation of the lumbar spine. Range of motion is not diminished with these motions. Facet palpation is negative for significant pain and facet loading maneuvers elicit only mild pain that is not concordant with the patient s normal pain complaints. STRENGTH - noted to be 5 out of 5 all muscle groups bilateral lower extremities including muscles involving hip flexion and abduction, knee flexion and extension, as well as foot dorsiflexion and plantarflexion. No notable atrophy, fasciculations or spasm. SENSORY - No notable sensory deficits in the bilateral lower extremities to touch or pinprick in all dermatomal distributions. Straight Leg Raise is negative bilaterally. Tenderness to palpation is noted over the Bilateral SacroIliac Joint: Fabere sign (Kj's Test) is significantly positive, as is compression and distraction of the sacroiliac joints, which is consistent with some of the patient's normal pain. Gait is normal. Assessment/Treatment Plan: Shavonne was seen today for back pain. Diagnoses and all orders for this visit: Disorder of sacrum - Case request operating room: INJECTION BLOCK SACROILIAC JOINT Chronic midline low back pain with left-sided sciatica - Ambulatory referral to Pain Management (Non[facility]) Bulging lumbar disc - Ambulatory referral to Pain Management (Non[facility]) Lumbar foraminal stenosis - Ambulatory referral to Pain Management (Non[facility]) Bilateral Sacroiliac Joint Injection - under fluoroscopy with the use of contrast dye (unless contraindicated) It is hopeful that the described procedure will provide symptomatic pain relief. It is felt to be medically necessary noting that the patient has tried and failed more conservative modalities of therapy and this is the next most appropriate step. The procedure was described in detail to the patient as well as the potential benefits of pain reduction alongside risks of the procedure and alternatives. Risks were described as including, but not limited to bleeding, infection, nerve damage, spinal cord injury, paralysis, stroke, dural puncture headache, and medication reaction. The patient expressed understanding regarding the risks and benefits and wishes to proceed. Diagnostic SI injections should provide information to confirm that the noted SI Joint arthropathy is the patient s most significant pain generator. If this provides significant but only temporary pain relief, the patient may in the future be a candidate for radiofrequency denervation of the SI joint to provide pain relief for approximately 1 year. Follow up 2 weeks after procedure The medications prescribed have been reviewed for medication interactions/contraindications and/or for upcoming procedures: continue current medication regimen without any changes. DISCUSSION: Treatment options discussed with patient and all questions answered to patient's satisfaction. Discussed the rules and regulations surrounding prescription of opioids and compliance at length. Failure to follow the rules and regulation will result in tapering and discontinuation of medications if applicable. Prescribed medication that requires intensive monitoring for toxicity We do not currently prescribe any controlled substance from this practice. The spine model was demonstrated and MRI was reviewed and used to explain the condition. Chronic conditions not treated during this visit that affected my overall medical decision making: Comorbidity- Obesity The patient does have a comorbid condition of obesity. This will be taken into account in that obesity will contribute to certain pain conditions. It can contribute to pain from degenerative disc disease as well as osteoarthritis of the joints. Many neuropathic symptoms are also amplified due to axial spine loading. Special benefits will also need to be given to procedures. Many procedures are technically more difficult in the light of severe obesity. I will also consider the possibility of undiagnosed obstructive sleep apnea (which often accompanies obesity) when prescribing any narcotic medications. I will weigh the risks and benefits and fully discuss them with the patient for these reasons. OARRS: Reviewed. Scribe Statement: Scribed for and in the presence of ZAHRA CROWLEY by Lidya Escamilla CNA. Provider Statement: I, ZAHRA CROWLEY, personally performed the services described in the documentation, as scribed by Lidya Escamilla CNA in my presence, and it is both accurate and complete. Lidya Escamilla CNA 01/05/24 [id number] ZAHRA Crowley 01/05/24 [id number] documented in this encounter [facility] 01-05-2024 Instructions Lidya Escamilla CNA - 01/05/2024 9:00 AM EDT Facet Injection / Medial Branch Block (MBB) / Sacroiliac (SI) Joint Injection A facet injection and sacroiliac joint injection are injections of local anesthetic and steroid into a joint in the spine. A medial branch block is similar, but the medication is placed outside the joint space near the nerve that supplies the joint called the medial branch (steroid may or may not be used). You may require multiple injections depending upon how many joints are involved. How Long Will This Procedure Last? The extent and duration of pain relief may depend on the amount of inflammation and how many areas are involved. Other coexisting factors may be responsible for your pain. If your pain goes away for a short time, but then returns, you may be a candidate for radiofrequency ablation (RFA). Activity Be active. Attempt activities and movements that typically cause pain to see if it feels better while doing them. We will give you a pain diary. Please fill this out as directed by your nurse in pre-op. This will help your doctor determine the effectiveness of the injection, and how to proceed. Bring the pain diary with you to your follow-up appointment. Medications You should not take your pain medications for 4-6 hours before or after the injection in order to properly diagnose if the injection provides adequate relief. Resume your routine medications after your procedure. You may resume blood thinners per your regular schedule after the procedure. If you received sedation: If you received sedation for your procedure, you may feel sleepy or not yourself for several hours today. For the next 24 hours avoid activities that requires alertness or coordination. This includes: Driving or operating heavy machinery Using power tools Consuming alcohol Do not make important or complex decisions or sign legal documents in the next 24 hours. Other Instructions: If you feel severe pain at the injection site with swelling and redness, increased leg weakness, a fever of 101 or higher, headache (or worsening headache), changes in vision or urinary retention: Please call the office at , or have someone take you to the nearest emergency room. Tell the emergency room staff that you recently had a spine injection. A doctor must evaluate you for bleeding and injection complications. If you lose control over bowel, bladder, or legs: Go to the nearest emergency room. documented in this encounter [facility] 12-28-2023 Nurse Note Preoperative Education Checklist- General Surgery date: 01/04/24 Surgery time: 8a Arrival time: 610a 1. Bring a photo ID and your insurance card with you the day of surgery. You will check in at the main lobby of the [facility]- registration desk is straight ahead as soon as you walk in. Tell them you are here for surgery. 2. If you have a Living Will/Durable Power of Cardiovascular Radiologic Technologist for Health Care that is not on file here, please bring a copy the day of surgery. 3. Please shower/bathe the night before surgery with the provided soap or wipes. Do not shower the morning of surgery- you will do use wipes when you arrive here at the hospital before getting into your surgical gown. Do not shave the area of your procedure for 2 days prior to your surgery. 4. NO powder, lotion, perfume/cologne, aftershave, make-up, deodorant, or hair products after you have bathed. 5. NO nail telugu/acrylic on at least one finger. If you are having a hand, wrist or foot surgery then all nail telugu and artificial/acrylic nails must be removed from that hand or foot. 6. Avoid ALL Aspirin and non-steroidal anti-inflammatory drugs and certain vitamins (Ibuprofen, Advil, Aleve, Excedrin, Meloxicam, Celebrex, fish/krill oil, etc.) for 7 days prior to surgery as instructed by your surgeon and/or your prescribing doctor. Tylenol IS ALLOWED. If you are on Ticlid, Xarelto, Eliquis, Pradaxa, Plavix or Coumadin, please check with your prescribing doctor for instructions for when to stop them. 7. If you use an inhaler, continue to use it routinely. 8. Nothing to eat or drink (not even water, gum, mints, or hard candy!) AFTER midnight prior to your surgery. 9. Take only medications that you are instructed to on the morning of surgery with a TINY SIP OF WATER. 10. Choose a responsible adult that will be able to drive you home when you are discharged from your hospital stay for your surgery and can stay with you in your home for 24 hours after your procedure. You must NOT drive any vehicle or operate any machinery for 24 hours after surgery. 11. When you dress for your appointment, please wear loose fitting clothing that is appropriate to accommodate your surgical area procedure. BRING WITH YOU ANY DEVICES YOU MAY NEED: JONATHAN hose, ice machine, sling/swath, brace or special shoe, oversized zip-up or button up shirt, CPAP machine if staying overnight. 12. Do NOT wear jewelry, watches, or any piercings or metal for surgery- leave these valuables and money at home. 13. Do NOT wear contact lenses for surgery- glasses are okay if needed. 14. The anesthesiologist will talk with you the day of surgery and will ask you to sign a Consent Form. 15. Refrain from smoking or any type of tobacco use for at least 8 hours and marijuana for 24 hours prior to arrival for your surgery. 16. If a GREEN BLOOD band is given to you, please bring it with you for the day of surgery. 17. Notify your surgeon if you develop any illness before your surgery. 18. If you are staying overnight, please DO NOT BRING your home medications with you. 19. If you have any questions prior to surgery, please call the Preadmission Testing office at [phone], Mon.-Fri. 7 a.m.-3 p.m. Leave a voicemail if needed. Pre-Surgery Instructions: Medication Instructions methylPREDNISolone (MEDROL, RADHA,) 4 mg tablet Stop taking 0 days prior to procedure [facility] 12-28-2023 Miscellaneous Notes Preoperative Education Checklist- General Surgery date: 01/04/24 Surgery time: 8a Arrival time: 610a 1. Bring a photo ID and your insurance card with you the day of surgery. You will check in at the main lobby of the [facility]- registration desk is straight ahead as soon as you walk in. Tell them you are here for surgery. 2. If you have a Living Will/Durable Power of Cardiovascular Radiologic Technologist for Health Care that is not on file here, please bring a copy the day of surgery. 3. Please shower/bathe the night before surgery with the provided soap or wipes. Do not shower the morning of surgery- you will do use wipes when you arrive here at the hospital before getting into your surgical gown. Do not shave the area of your procedure for 2 days prior to your surgery. 4. NO powder, lotion, perfume/cologne, aftershave, make-up, deodorant, or hair products after you have bathed. 5. NO nail telugu/acrylic on at least one finger. If you are having a hand, wrist or foot surgery then all nail telugu and artificial/acrylic nails must be removed from that hand or foot. 6. Avoid ALL Aspirin and non-steroidal anti-inflammatory drugs and certain vitamins (Ibuprofen, Advil, Aleve, Excedrin, Meloxicam, Celebrex, fish/krill oil, etc.) for 7 days prior to surgery as instructed by your surgeon and/or your prescribing doctor. Tylenol IS ALLOWED. If you are on Ticlid, Xarelto, Eliquis, Pradaxa, Plavix or Coumadin, please check with your prescribing doctor for instructions for when to stop them. 7. If you use an inhaler, continue to use it routinely. 8. Nothing to eat or drink (not even water, gum, mints, or hard candy!) AFTER midnight prior to your surgery. 9. Take only medications that you are instructed to on the morning of surgery with a TINY SIP OF WATER. 10. Choose a responsible adult that will be able to drive you home when you are discharged from your hospital stay for your surgery and can stay with you in your home for 24 hours after your procedure. You must NOT drive any vehicle or operate any machinery for 24 hours after surgery. 11. When you dress for your appointment, please wear loose fitting clothing that is appropriate to accommodate your surgical area procedure. BRING WITH YOU ANY DEVICES YOU MAY NEED: JONATHAN hose, ice machine, sling/swath, brace or special shoe, oversized zip-up or button up shirt, CPAP machine if staying overnight. 12. Do NOT wear jewelry, watches, or any piercings or metal for surgery- leave these valuables and money at home. 13. Do NOT wear contact lenses for surgery- glasses are okay if needed. 14. The anesthesiologist will talk with you the day of surgery and will ask you to sign a Consent Form. 15. Refrain from smoking or any type of tobacco use for at least 8 hours and marijuana for 24 hours prior to arrival for your surgery. 16. If a GREEN BLOOD band is given to you, please bring it with you for the day of surgery. 17. Notify your surgeon if you develop any illness before your surgery. 18. If you are staying overnight, please DO NOT BRING your home medications with you. 19. If you have any questions prior to surgery, please call the Preadmission Testing office at [phone], Mon.-Fri. 7 a.m.-3 p.m. Leave a voicemail if needed. Pre-Surgery Instructions: Medication Instructions methylPREDNISolone (MEDROL, RADHA,) 4 mg tablet Stop taking 0 days prior to procedure documented in this encounter [facility] 12-27-2023 History of Present illness Narrative Images from the original note were not included. [facility] [address] [place] [address], [address] [place] [address] * CHART NOTE ? 12/27/2023 Patient: Mar Adame 1965 [id number] Nurse Practitioner: Benjamin Stein, JUNIOR PROGRAMMER ANALYST Physician: Brian Girard MD, FAANS IMPRESSION / PLAN 58 y.o. female presents for a new patient visit with a c/o right low back pain that radiates into the right buttock and upper posterior thigh. Will refer to PT for traction, and to Pain Management for right L5 and S1 TFESI. Patient to follow up after injection. Medrol radha provided today. HISTORY OF PRESENT ILLNESS 58 y.o. female presents to the clinic as a new patient for a lumbar consultation. Shavonne reports a constant pain that can be sharp at times in the right low back and into the right buttock and upper posterior thigh that began approximately 6 weeks ago. She states she feels as if she may fall at times. She was admitted to [facility] for diverticulitis approximately 6 weeks ago, and was treat for her back pain at the same time. She was given morphine and Eden while in the hospital. She completed one week of PT at [facility] in September or October without improvement. She has not had any chiropractic treatment or interventional pain procedures. Denies loss of pm head cook strength, saddle anesthesia, urinary or bowel dysfunction, weakness, numbness or tingling, and loss of balance. Patient does not use an assistive device for ambulation. Patient is not diabetic and former smoker. 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 Diverticular disease 05/25/2016 Diverticulitis of colon Diverticulosis Eczema 06/21/2022 GERD (gastroesophageal reflux disease) History of colon polyps 11/15/2022 Lumbar spondylosis 05/25/2016 Morbid obesity ([facility]) 06/21/2022 Primary hydronephrosis 07/07/2020 ==== 07/07/2020 ==== has [...] 05/18/2022 Seasonal allergies Tarsal tunnel syndrome 05/25/2016 Vitamin D deficiency 10/25/2018 PAST SURGICAL HISTORY Past Surgical History: Procedure Laterality Date SECTION CHOLECYSTECTOMY COLONOSCOPY COLONOSCOPY N/A 12/17/2022 Performed by Analia Sharif MD at [facility] SOCIAL HISTORY Social History Socioeconomic History Marital [...] 2013 Years since quittin.4 Smokeless tobacco: Never Vaping Use Vaping status: Never Used Substance and Sexual Activity Alcohol use: Not Currently Comment: rare-2 drinks/year Drug use: Never Sexual activity: Yes Other Topics Concern Not on file Social History Narrative Not on file Social Determinants of Health Financial Resource Strain: Low Risk (05/30/2023) Overall Financial Resource Strain (CARDIA) Difficulty of Paying Living Expenses: Not hard at all Food Insecurity: No Food Insecurity (12/06/2023) Hunger Screening Food Insecurity - Worry: Never True Food Insecurity - Inability: Never True Transportation Needs: No Transportation Needs (05/30/2023) PRAPARE - Transportation Lack of Transportation (Medical): No Lack of Transportation (Non-Medical): No Physical Activity: Inactive (06/21/2022) Exercise Vital Sign Days of Exercise per Week: 0 days Minutes of Exercise per Session: 0 min Stress: No Stress Concern Present (06/21/2022) [employer] - Occupational Stress Questionnaire Feeling of Stress : Not at all Social Connections: Socially Integrated (06/21/2022) Social Connection and Isolation Panel [NHANES] Frequency of Communication with Friends and Family: More than three times a week Frequency of Social Gatherings with Friends and Family: More than three times a week Attends [employer] Services: More than 4 times per year Active Member of Clubs or Organizations: Yes Attends Club or Organization Meetings: More than 4 times per year Marital Status: Interpersonal Safety: Not At Risk (06/21/2022) Humiliation, Afraid, Rape, and Kick questionnaire Fear of Current or Ex-Partner: No Emotionally Abused: No Physically Abused: No Sexually Abused: No Housing Instability: Low Risk (05/30/2023) Housing Instability Housing Instability: No REVIEW OF SYSTEMS ROS Positive Findings: Negative otherwise noted in the HPI PHYSICAL EXAMINATION Alert Oriented No percussion tenderness along spine ROM of the low back is decreased No weakness DTR 0 in bilateral patella; 2+ elsewhere No atrophy No fasciculations Sensation to light touch is normal in gr dermatomes Gait is within normal limits JOHN is positive on the right SLR is positive on the right MRI / IMAGES MR lumbar 12-09-2023 IMPRESSION: * L4-5 large broad-based disc protrusion extending greater towards the right with narrowing of the right lateral recess and moderate spinal stenosis. Recommend correlation for symptoms attributable to this level. XR lumbar 11-24-2023 Impression: Multilevel degenerative disc disease without acute process identified. I reviewed the imaging studies independently and critical findings were anotated for the patient. Electronically Signed By: Benjamin Stein CNP This note was created with the assistance of a speech recognition program with the goal of generating a timely record of the patient encounter. Inadvertent computerized spray drier errors related to syntax, spelling, homophones, and/or inaudibility may be present. SURAJ Perdomo 12/27/23 0938 documented in this encounter [facility] 12-27-2023 Instructions Tiffanie Franklin CMA - 12/27/2023 8:45 AM EDT Patient was seen today by Benjamin Stein Given a physical therapy referral order, pain management referral order for injections and medrol dosepack. Patient to follow up at documented in this encounter [facility] 12-06-2023 History of Present illness Narrative Images from the original note were not included. Chief Complaint: Diverticulitis History of Present Illness: Mar Adame is a 58 y.o. female presents to the office to discuss recurrent diverticulitis. Over the last 2 years, she has had at least 2-3 episodes of diverticulitis per year. The last episode of diverticulitis she had was in October, this required hospitalization for IV antibiotics. She denies any history of abscess or perforation. She states that she has used all her vacation and PTO time over the last 2 years for her diverticulitis episodes. She is worried that her diverticulitis continues to recur. She is currently off of antibiotics and reports that her left lower quadrant pain is better. She is on a low-fiber diet. She reports alternating bowel movements. She notes thin caliber stools. Her past surgical history includes laparoscopic cholecystectomy. She does not take any medications. She does have morbid obesity with a BMI of 41. She is a nonsmoker. Her last colonoscopy was in November of 2022 and showed small and large mouth diverticula in the sigmoid and descending colon. She is here to discuss surgical intervention for her diverticulitis. HPI Review of Systems Constitutional: Negative for fever and chills. Respiratory: Negative for shortness of breath. Cardiovascular: Negative for chest pain and palpitations. Gastrointestinal: Positive for abdominal pain. Negative for nausea and vomiting. Genitourinary: Negative for dysuria and difficulty urinating. Skin: Negative for rash and wound. Allergic/Immunologic: Negative for immunocompromised state. Neurological: Negative for weakness and light-headedness. Hematological: Does not bruise/bleed easily. Psychiatric/Behavioral: Negative for behavioral problems and confusion. 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 Diverticular disease 05/25/2016 Diverticulitis of colon Diverticulosis Eczema 06/21/2022 GERD (gastroesophageal reflux disease) History of colon polyps 11/15/2022 Lumbar spondylosis 05/25/2016 Morbid obesity ([facility]) 06/21/2022 Primary hydronephrosis 07/07/2020 ==== 07/07/2020 ==== has [...] 05/18/2022 Seasonal allergies Tarsal tunnel syndrome 05/25/2016 Vitamin D deficiency 10/25/2018 Past Surgical History: Procedure Laterality Date SECTION CHOLECYSTECTOMY COLONOSCOPY COLONOSCOPY N/A 12/17/2022 Performed by Analia Sharif MD at [facility] Allergies Allergen Reactions Iodinated Contrast Media Hives and Other (See Comments) Penicillins Rash No current outpatient medications on file. Social History Socioeconomic History Marital status: Spouse name: Not on file Number of children: Not on file Years of education: Not on file Highest education level: Not on file Occupational History Not on file Tobacco Use Smoking status: Former Current packs/day: 0.00 Average packs/day: 1 pack/day for 7.0 years (7.0 ttl pk-yrs) Types: Cigarettes Start date: 2005 Quit date: 2012 Years since quittin.3 Smokeless tobacco: Never Vaping Use Vaping status: Never Used Substance and Sexual Activity Alcohol use: Not Currently Comment: rare-2 drinks/year Drug use: Never Sexual activity: Yes Other Topics Concern Not on file Social History Narrative Not on file Social Determinants of Health Financial Resource Strain: Low Risk (05/30/2023) Overall Financial Resource Strain (CARDIA) Difficulty of Paying Living Expenses: Not hard at all Food Insecurity: No Food Insecurity (12/06/2023) Hunger Screening Food Insecurity - Worry: Never True Food Insecurity - Inability: Never True Transportation Needs: No Transportation Needs (05/30/2023) PRAPARE - Transportation Lack of Transportation (Medical): No Lack of Transportation (Non-Medical): No Physical Activity: Inactive (06/21/2022) Exercise Vital Sign Days of Exercise per Week: 0 days Minutes of Exercise per Session: 0 min Stress: No Stress Concern Present (06/21/2022) [employer] [employer] - Occupational Stress Questionnaire Feeling of Stress : Not at all Social Connections: Socially Integrated (06/21/2022) Social Connection and Isolation Panel [NHANES] Frequency of Communication with Friends and Family: More than three times a week Frequency of Social Gatherings with Friends and Family: More than three times a week Attends [employer] Services: More than 4 times per year Active Member of Clubs or Organizations: Yes Attends Club or Organization Meetings: More than 4 times per year Marital Status: Interpersonal Safety: Not At Risk (06/21/2022) Humiliation, Afraid, Rape, and Kick questionnaire Fear of Current or Ex-Partner: No Emotionally Abused: No Physically Abused: No Sexually Abused: No Housing Instability: Low Risk (05/30/2023) Housing Instability Housing Instability: No Family History Problem Relation Age of Onset Arthritis Mother Coronary artery disease Father Lung cancer Father small cell- at age 81 Dementia Father Autoimmune disease Sister Fibromyalgia Sister Pectus excavatum Brother Breast cancer Neg Hx Physical Exam Vitals reviewed. Constitutional: Appearance: Normal appearance. HENT: Head: Normocephalic and atraumatic. Eyes: Pupils: Pupils are equal, round, and reactive to light. Cardiovascular: Rate and Rhythm: Normal rate. Pulmonary: Effort: Pulmonary effort is normal. Abdominal: General: There is no distension. Palpations: Abdomen is soft. Tenderness: There is no abdominal tenderness. Musculoskeletal: General: No swelling. Skin: General: Skin is warm and dry. Neurological: Mental Status: She is alert and oriented to person, place, and time. Mental status is at baseline. Psychiatric: Mood and Affect: Mood normal. Behavior: Behavior normal. Vital Signs: Blood pressure (!) 152/98, height 163.8 cm (5' 4.5 ), weight 111.2 kg (245 lb 3.2 oz). Respiratory Source: No data recorded Admission Weight: Weight: 111.2 kg (245 lb 3.2 oz) Labs: Lab Results Component Value Date WBC 4.7 04/29/2023 HGB 13.2 04/29/2023 HCT 39.1 04/29/2023 MCV 99 04/29/2023 PLT 327 04/29/2023 Lab Results Component Value Date GLU 113 (H) 04/29/2023 CALCIUM 9.7 04/29/2023 K 4.3 04/29/2023 CO2 27 04/29/2023 CL 104 04/29/2023 BUN 15 04/29/2023 CREATININE 0.83 04/29/2023 No results found for: AMYLASE No results found for: LIPASE Lab Results Component Value Date ALT 17 04/29/2023 AST 19 04/29/2023 ALKPHOS 60 04/29/2023 No results found for: INR , PROTIME Imaging: CT abdomen and pelvis performed on 11/02/2023, 11/08/2023, 11/18/2023 images were all personally reviewed and interpreted. Report was also reviewed. Diverticulitis of the sigmoid and distal descending colon. No signs of perforation such as abscess or free air. CT abdomen pelvis performed on 03/16/23 - report was reviewed and showed sigmoid diverticulitis. Assessment: Mar Adame is a 58 y.o.female with recurrent sigmoid diverticulitis. Diverticulitis [K57.92] Plan: Schedule patient for repeat colonoscopy in 4 weeks. We discussed MIS sigmoid colectomy, including risks and benefits. Patient will return to the office after colonoscopy is complete to discuss surgery in further detail and get her on the schedule. Continue low-fiber diet. Weight loss and exercise encouraged. Evaluation included: Preparing to see the patient (e.g., review of tests) Obtaining and/or reviewing separately obtained history Performing a medically appropriate examination and/or evaluation Counseling and educating the patient/family/caregiver Referring and communicating with other health home care assistant Maverick Nick MD [facility] [place] documented in this encounter [facility] 11-28-2023 Miscellaneous Notes ----- Message from Diana Gillespie LPN sent at 11/28/2023 9:23 AM EDT ----- Patient notified of test results and verbalizes understanding. Patient states she has done some physical therapy, so she would be interested in the MRI and a referral to spine clinc MRI order please arrange and referral to spine clinic ordered please arrange Patient given all info documented in this encounter [facility] 11-28-2023 Telephone encounter Note ----- Message from Diana Gillespie LPN sent at 11/28/2023 9:23 AM EDT ----- Patient notified of test results and verbalizes understanding. Patient states she has done some physical therapy, so she would be interested in the MRI and a referral to spine clinc [facility] 11-28-2023 Telephone encounter Note MRI order please arrange and referral to spine clinic ordered please arrange [facility] 11-28-2023 Telephone encounter Note Patient given all info [facility] 11-24-2023 History of Present illness Narrative Images from the original note were not included. [id number] [facility] [id number] SUBJECTIVE: Transition of Care Additional Questions/Concerns Requiring PCP Follow-Up: This documentation is being used for Transition of Care purposes: Yes Goal: Patient will demonstrate a safe transition from hospital to home. Diagnosis on Discharge: Discharge Specialty: Gastroenterology Name of Discharging Facility: [facility] Date of Facility Discharge: 11/18/23 - 11/21/23 Date of Interactive Contact and Name of License Examiner: Medication Review Completed: Yes Medication Reconciliation Questions/Concerns: Invanz 1 GM 100ml/hr daily x 10 more days Patient states she has a midline, not PICC. She is to go to hospital to have ATB infusion completed. Follow Up Appointments with Providers: Primary: Justina Valdez MD [facility] 11/24/23 @ 3:00 Specialty: Surgery Dr Braswell/ Shira Valera 12/08/23 @ 10:00 Specialty: Specialty: [...] Saloni Pinedo RN, can be reached at [phone] and will follow for a minimum of 30 days following hospitalization. Communication with Home Health Agencies and Other Services Utilized/Needed by the Patient: none Patient ID: Mar Adame is a 58 y.o. female. 58 yo WF with transition of care for hospital stay 11/17- 11/20 for diverticulitis now on invanz not responding to out patient therapy( flagyl followed by kim) Pt is following up us today and general surgery, she also have left lower back pain that pt feels is associated with diverticulitis? The following portions of the patient's history were reviewed and updated as appropriate: allergies, current medications, past family history, past medical history, past social history, past surgical history and problem list. REVIEW OF SYSTEMS: Review of Systems PHYSICAL EXAMINATION: Vitals: 11/24/23 1509 BP: 144/80 BP Site: Right Arm BP Postition: Sitting BP CUFF SIZE: M (9-13 inches) Pulse: 88 Resp: 16 Temp: 36.7 C (98 F) TempSrc: Tympanic Weight: 110.5 kg (243 lb 8 oz) Height: 163.8 cm (5' [...] is normal. Breath sounds: Normal breath sounds. Abdominal: Comments: LLQ nontender Musculoskeletal: Comments: Tenderness mid low back to palpation Skin: General: Skin is warm and dry. Neurological: General: No focal deficit present. Mental Status: She is alert and oriented to person, place, and time. Psychiatric: Mood and Affect: Mood normal. Behavior: Behavior normal. ASSESSMENT/PLAN: Mar was seen today for porsha. Diagnoses and all orders for this visit: Diverticular disease Lumbar degenerative disc disease - X-ray pelvis 1 or 2 views; Future - X-ray spine lumbar 2 or 3 views; Future Follow-up: Complete invanz and see general surgery Xray for lumbar spine and pelvis Tylenol 2 bid documented in this encounter [facility] 11-18-2023 Miscellaneous Notes Per patient she has not heard anything form [facility] regarding MRI. I called and left message for them to call me back. Patient currently in [place] ER. I will call her Tuesday with instructions. She needs to schedule MRI at [place] and call [facility] to schedule EMG Patient notified. documented in this encounter [facility] 11-18-2023 Telephone encounter Note Per patient she has not heard anything form [facility] regarding MRI. I called and left message for them to call me back. [facility] 11-18-2023 Telephone encounter Note Patient currently in [place] ER. I will call her Tuesday with instructions. She needs to schedule MRI at [place] and call [facility] to schedule EMG [facility] 11-18-2023 Telephone encounter Note Patient notified. [facility] 11-18-2023 History of Present illness Narrative Images from the original note were not included. [address] [place] [address] SUBJECTIVE: Patient ID: Mar Adame is a 58 y.o. female. 58 yo WF with now over 10days of lower abdominal pain , possible diverticular disease , seen in [place] ER 10d ago and rx'd flagyl and cipro and couldn't take flagyl and was not improved as of today with 10d of cipro and is having urinary incontinence relat to the painand Previous CT scan is reviewed a second time today and pt is is in significant discomfort today, small bm's no blood , o vomiting The following portions of the patient's history were reviewed and updated as appropriate: allergies, current medications, past family history, past medical history, past social history, past surgical history and problem list. REVIEW OF SYSTEMS: Review of Systems Gastrointestinal: Positive for abdominal pain. Genitourinary: Incontinence PHYSICAL EXAMINATION: Vitals: 11/18/23 0847 BP: 142/80 BP Site: Left Arm BP Postition: Sitting BP CUFF SIZE: L (13-17 inches) Pulse: 88 Resp: 16 Temp: 37.6 C (99.6 F) TempSrc: Tympanic Weight: 109.8 kg (242 lb) Height: 163.8 cm (5' 4.5 ) [...] is normal. Breath sounds: Normal breath sounds. Abdominal: Palpations: Abdomen is soft. Tenderness: There is abdominal tenderness. There is guarding. Skin: General: Skin is warm and dry. Neurological: General: No focal deficit present. Mental Status: She is alert and oriented to person, place, and time. Psychiatric: Mood and Affect: Mood normal. Behavior: Behavior normal. ASSESSMENT/PLAN: Mar was seen today for follow-up. Diagnoses and all orders for this visit: Diverticular disease Left lower quadrant abdominal pain Follow-up: Cipro not helping and flagyl not tolerated With the degree of pain we are seeing, will refer back to ER for further eval documented in this encounter [facility] 11-17-2023 Miscellaneous Notes Patient went to Gastro today and was given the wrong address for the office. Patient very upset and now wants referred to [facility]. Please cancel old referral and place new. Thanks! Refferal in place documented in this encounter [facility] 11-17-2023 Telephone encounter Note Patient went to [facility]astro today and was given the wrong address for the office. Patient very upset and now wants referred to [facility]. Please cancel old referral and place new. Thanks! [facility] 11-17-2023 Telephone encounter Note Refferal in place [facility] 11-16-2023 Miscellaneous Notes Patient finishes antibiotic tomorrow and she is still having a lot of flank pain. She is calling gastro to get appt. BM are soft formed stools every other day.No blood in stool. Please advice. [facility] [place] Can refill cipro 500mg bid x7d for an additional week , please f/u gastro, if pt wishes I can recheck pt in 1 week Patient notified and scheduled appt. documented in this encounter [facility] 11-16-2023 Telephone encounter Note Patient finishes antibiotic tomorrow and she is still having a lot of flank pain. She is calling gastro to get appt. BM are soft formed stools every other day.No blood in stool. Please advice. Caio [facility] 11-16-2023 Telephone encounter Note Can refill cipro 500mg bid x7d for an additional week , please f/u gastro, if pt wishes I can recheck pt in 1 week [facility] 11-16-2023 Telephone encounter Note Patient notified and scheduled appt. [facility] 11-09-2023 History of Present illness Narrative Images from the original note were not included. [address] [facility] [address] SUBJECTIVE: Patient ID: Mar Adame is a 58 y.o. female. 58 yo WF with ER f/u for left sided flank pain onset 10/31 and then went to ER /10 , and return ed to ER 16 for medication side effect (metronidazole ), pt is doing better, pt is bloated , stools are small, no vomiting now The following portions of the patient's history were reviewed and updated as appropriate: allergies, current medications, past family history, past medical history, past social history, past surgical history and problem list. REVIEW OF SYSTEMS: Review of Systems Gastrointestinal: Positive for abdominal distention and abdominal pain. PHYSICAL EXAMINATION: Vitals: 11/09/23 1524 BP: 158/80 BP Site: Left Arm BP Postition: Sitting BP CUFF SIZE: M (9-13 inches) Pulse: 80 Resp: 16 Temp: 37.1 C (98.8 F) TempSrc: Tympanic Weight: 113.4 kg (250 lb) Height: 163.8 [...] sounds. Pulmonary: Effort: Pulmonary effort is normal. Abdominal: Tenderness: There is abdominal tenderness. Comments: LLQ tenderness Skin: General: Skin is warm and dry. Neurological: General: No focal deficit present. Mental Status: She is alert and oriented to person, place, and time. Psychiatric: Mood and Affect: Mood normal. Behavior: Behavior normal. ASSESSMENT/PLAN: Mar was seen today for follow-up. Diagnoses and all orders for this visit: Diverticular disease Other orders - ciprofloxacin HCl (CIPRO) 500 mg tablet; Take 1 tablet (500 mg total) by mouth in the morning and 1 tablet (500 mg total) before bedtime. Do all this for 7 days. Follow-up: Cipro 500mg bid x7d Avoid seeds nuts and kernels ER report reviewed documented in this encounter [facility] 09-29-2023 History of Present illness Narrative Images from the original note were not included. [address] [facility] [address] SUBJECTIVE: Patient ID: Mar Adame is a 58 y.o. female. 58 yo [...] referral Home exercises documented in this encounter [facility] 09-02-2023 History of Present illness Narrative Images from the original note were not included. [address] [facility] [address] SUBJECTIVE: Patient ID: Mar Adame is a 58 y.o. female. 58 yo [...] this visit: Lumbar degenerative disc disease - [facility] - [place], [place]; Future Other orders - cyclobenzaprine (FLEXERIL) [...] weeks for the cough to go away [facility] ([employer]) Other 07-12-2022 NotePROCEDURE: XR FINGER MIN 2 VIEWS COMPARISON: None. HISTORY: Enthesopathy FINDINGS: BONES:No fracture, acute abnormality, or significant arthropathy. SOFT TISSUES:Soft tissue swelling of the third finger EFFUSION:None visible. OTHER: Negative. IMPRESSION: Soft tissue swelling. No acute fracture or significant degenerative changes of the right third finger Electronically authenticated by: JUSTINA TIMMONS Date: 2022-02-02 19:24[facility]10-23-2021 Evaluation note* Encounter Date Diagnosis Assessment [...] understanding and is agreeable with treatment plan [facility] ([employer]) Other evaluation noteNo InformationNort Udex Other evaluation note* Diagnosis Onset Date Resolution Status Diverticular disease of inte mohit without perforation or abscess [facility] Work Phone: Evwpcyzpyz note* Diagnosis Diverticular disease- Primary Diverticulosis of colon (without mention of hemorrhage) [facility] Diagnosis Diverticular disease- Primary Diverticulosis of colon (without mention of hemorrhage) documented [facility]* Diagnosis Diverticular disease- Primary Diverticulosis of colon (without mention of hemorrhage) Left lower quadrant abdominal pain documented [facility]* Diagnosis Diverticular disease- Primary Diverticulosis of colon (without mention of hemorrhage) Lumbar degenerative disc disease documented [facility]* Diagnosis Chronic midline low back pain with left-sided sciatica- Primary Lumbar degenerative disc disease documented [facility]* Diagnosis Diverticulitis- Primary Diverticulitis of colon (without mention of hemorrhage) documented [facility]* Diagnosis Disorder of sacrum- Primary Disorders of sacrum Chronic midline low back pain with left-sided sciatica Bulging lumbar disc Lumbar foraminal stenosis Disorder of sacrum- Primary Disorders of sacrum Lumbar degenerative disc disease Chronic midline low back pain with left-sided sciatica Bulging lumbar disc Lumbar foraminal stenosis Disorder of sacrum Disorders of sacrum documented [facility]* Diagnosis Chronic midline low back pain with left-sided sciatica- Primary documented in this [facility]* Diagnosis Low back pain, unspecified back pain laterality, unspecified chronicity, unspecified whether sciatica present- Primary documented [facility] this [facility]* Diagnosis Lumbar foraminal stenosis- Primary Chronic midline low back pain with left-sided sciatica Bulging lumbar disc documented in this encounter [facility]* Diagnosis Lumbar degenerative disc disease- Primary documented in this encounter [facility]* Diagnosis Disorder of sacrum- Primary Disorders of sacrum Diverticulitis large intestine w/o perforation or abscess w/o bleeding- Primary Disorder of sacrum Disorders of sacrum documented [facility]* Diagnosis TOS (thoracic outlet syndrome)- Primary Brachial plexus lesions documented [facility]* Diagnosis Lumbar spondylosis- Primary Lumbosacral spondylosis without myelopathy documented in this [facility]* Diagnosis Status post laparoscopic colectomy- Primary Other postprocedural status Postoperative abdominal pain Postoperative abdominal pain documented [facility]* Diagnosis Status post laparoscopic colectomy- Primary Other postprocedural status documented in this encounter [facility]* Diagnosis Post-op pain- Primary Other acute postoperative pain documented [facility] this [facility]* Diagnosis Routine general medical examination at a health care facility- Primary documented in this encounter [facility]* Diagnosis Other acute sinusitis, recurrence not specified- Primary documented in this encounter [facility]* Diagnosis Post-op pain Other acute postoperative pain documented [facility] this encounter [facility]* Diagnosis Disorder of sacrum- Primary Disorders of sacrum Lumbar radiculopathy Thoracic or lumbosacral neuritis or radiculitis, unspecified Lumbar herniated disc Lumbosacral spondylosis without myelopathy- Primary Disorder of sacrum Disorders of sacrum Lumbar radiculopathy Thoracic or lumbosacral neuritis or radiculitis, unspecified Lumbar herniated disc documented in this encounter [facility]* Diagnosis Disorder of sacrum- Primary Disorders of sacrum Lumbar radiculopathy Thoracic or lumbosacral neuritis or radiculitis, unspecified Lumbar herniated disc Status post laparoscopic colectomy- Primary Other postprocedural status Disorder of sacrum Disorders of sacrum Lumbar radiculopathy Thoracic or lumbosacral neuritis or radiculitis, unspecified Lumbar herniated disc documented in this encounter [facility]* Diagnosis Disorder of sacrum- Primary Disorders of sacrum Disorder of sacrum- Primary Disorders of sacrum Disorder of sacrum Disorders of sacrum [facility] Lumbar radiculopathy Thoracic or lumbosacral neuritis or radiculitis, unspecified Lumbar herniated disc Lumbar radiculopathy Thoracic or lumbosacral neuritis or radiculitis, unspecified Lumbar herniated disc Lumbar radiculopathy Thoracic or lumbosacral neuritis or radiculitis, unspecified Lumbar herniated disc documented in this encounter [facility]* Diagnosis Disorder of sacrum- Primary Disorders of sacrum Lumbar spondylosis- Primary Lumbosacral spondylosis without myelopathy Bulging lumbar disc Displacement of left side of L4-L5 intervertebral disc Disorder of sacrum Disorders of sacrum documented in this encounter [facility]* Diagnosis Lumbar radiculopathy Thoracic or lumbosacral neuritis or radiculitis, unspecified Lumbar herniated disc Other acute sinusitis, recurrence not specified- Primary Lumbar radiculopathy Thoracic or lumbosacral neuritis or radiculitis, unspecified Lumbar herniated disc documented in this encounter [facility]* Diagnosis Disorder of sacrum- Primary Disorders of sacrum Lumbar radiculopathy- Primary Thoracic or lumbosacral neuritis or radiculitis, unspecified Pre-op testing Unspecified pre-operative examination Pre-op testing Unspecified pre-operative examination documented [facility] this [facility]* Diagnosis Disorder of sacrum- Primary Disorders of sacrum Displacement of left side of L4-L5 intervertebral disc [facility] Diagnosis Lumbar spinal stenosis- Primary Spinal stenosis of lumbar region Lumbar radiculopathy Thoracic or lumbosacral neuritis or radiculitis, unspecified Lumbar herniated disc Spinal stenosis of lumbar region with neurogenic claudication Lumbar radiculopathy Thoracic or lumbosacral neuritis or radiculitis, unspecified Lumbar herniated disc documented in this encounter [facility]* Diagnosis Status post lumbar laminectomy- Primary Muscle spasm of back [facility]* Diagnosis Onset Date Resolution Status Admit Date Bronchitis acute September 17, 2024 4:45pm [facility] Work Phone: Evaluation note* Diagnosis Status post lumbar laminectomy- Primary documented in this encounter [facility]* Diagnosis Bronchitis- Primary Bronchitis, not specified as acute or chronic documented in this encounter [facility]* Diagnosis Bronchitis Bronchitis, not specified as acute or chronic Bronchitis Bronchitis, not specified as acute or chronic documented in this encounter [facility]* Diagnosis Bronchitis- Primary Bronchitis, not specified as acute or chronic documented in this encounter [facility]* Diagnosis Lumbar spondylosis- Primary Lumbosacral spondylosis without myelopathy documented in this encounter [facility]* Diagnosis Back pain, unspecified back location, unspecified back pain laterality, unspecified chronicity- Primary documented in this encounter [facility]* Diagnosis Status post lumbar laminectomy- Primary Acute midline low back pain without sciatica Bowel dysfunction Lumbar spondylosis Lumbosacral spondylosis without myelopathy documented [facility] this [facility] general Narrative - Reported* Type Description Date Surgical History C section x4 Surgical History cholecystectomy Hospitalization History see above [facility] ([employer]) Other InstructionsNot on filedocumented in this encounter [facility] SystemInstructionsNot on filedocumented in this encounter [facility] System[facility]* Attachments The following attachments cannot be sent through Care Everywhere. * Diverticulosis (Prydeinig) documented in this encounterProM[facility] SystemInstructionsNot on file documented in this encounterProMim[facility] SystemInstructionsNot on file documented in this encounterProMediBlue Water Technologies Health SystemInstructionsNot on file documented in this encounterProMimoco Health SystemInstructionsNot on file documented in this encounterProMimoco Health SystemInstructionsNot on file documented in this encounterProMimoco Health SystemInstructionsNot on file documented in this encounterProMediBlue [facility] Technologies Health SystemInstructionsNot on file documented in this encounterProMimoco Health SystemInstructionsNot on file documented in this encounterProTransTech Pharma SystemInstructions* Attachments The following attachments cannot be sent through Care Everywhere. * Thoracic Outlet Syndrome Exercises (Prydeinig) documented in this encounterProMimoco Health SystemInstructionsNot on file documented in this encounterProMimoco Health SystemInstructionsNot on file documented in this encounterProMimoco Health SystemInstructions* Attachments The following attachments cannot be sent through Care Everywhere. * Yearly Physical for Adults (Prydeinig) documented in this encounterProMimoco Health SystemInstructionsNot on file documented in this encounterProMimoco Health SystemInstructionsNot on file documented in this encounterProMimoco Health SystemInstructionsNot on file documented in this encounterProTransTech Pharma SystemInstructionsNot on file documented in this encounterProTransTech Pharma SystemInstructions* Attachments The following attachments cannot be sent through Care Everywhere. * Herniated disc (Prydeinig) documented in this encounterProTransTech Pharma SystemInstructions* Attachments The following attachments cannot be sent through Care Everywhere. * Sinusitis in adults (Prydeinig) documented in this encounterProTransTech Pharma SystemInstructionsNot on file documented in this encounterCentral [facility] Medical CenterTransTech Pharma SystemInstructions* Attachments The following attachments cannot be sent through Care Everywhere. * Acute bronchitis in adults (Prydeinig) documented in this encounterProTransTech Pharma SystemInstructions* Attachments The following attachments cannot be sent through Care Everywhere. * Acute bronchitis in adults (Prydeinig) documented in this encounterProVeterans Health AdministrationInstructions* Attachments The following attachments cannot be sent through Care Everywhere. * Acute Bronchitis Discharge Instructions, Adult (Prydeinig) documented in this encounterProVeterans Health AdministrationInstructions* Attachments The following attachments cannot be sent through Care Everywhere. * Spondylolysis (Prydeinig) documented in this encounterProVeterans Health AdministrationReason for referral (narrative)* Consultation (Routine) - Authorized Specialty Diagnoses / Procedures Referred By Contac t Referred To Contact Gastroenterology Diagnoses Diverticular disease Justina Valdez MD [address] [place] [address] Analia Sharif MD [address] [place] [address], [place] [address] Referral ID Status Reason Start Date Expiration Date Visits Requested Visits Authorized [id number] Authorized Specialty Services Required 11/09/2023 11/08/2024 1 1 [facility] for referral (narrative)* Consultation (Routine) - Pending Review Specialty Diagnoses / Procedures Referred By Contac t Referred To Contact Gastroenterology Diagnoses Diverticular disease Justina Valdez MD [address] [place] [address] Marc Perez MD [address] [place] [id number] Referral ID Status Reason Start Date Expiration Date Visits Requested Visits Authorized [id number] Pending Review Specialty Services Required 11/17/2023 11/16/2024 1 1 [facility] for referral (narrative)* Consultation (Routine) - Authorized Specialty Diagnoses / Procedures Referred By Contac t Referred To Contact Diagnoses Chronic midline low back pain with left-sided sciatica Lumbar degenerative disc disease Justina Valdez MD [address] [place] [address] Benjamin Stein, ARBORIST-JUNIOR PROGRAMMER ANALYST [address] [facility] [address] [place] [address] Referral ID Status Reason Start Date Expiration Date V isits Requested Visits Authorized [id number] Authorized 11/28/2023 11/27/2024 1 1 * Diagnostic Imaging (Routine) - Pending Review Specialty Diagnoses / Procedures Referred By Contac t Referred To Contact Radiology Diagnoses Chronic midline low back pain with left-sided sciatica Lumbar degenerative disc disease Procedures MR lumbar spine without contrast Justina Valdez MD [address] [place] [address] [facility] [address] [place] [address] Phone: [phone] Referral ID Status Reason Start Date Expiration Date V isits Requested Visits Authorized [id number] Pending Review 11/28/2023 11/27/2024 1 1 [facility] Consultation (Routine) - Authorized Specialty Diagnoses / Procedures Referred By Contac t Referred To Contact Neurosurgery Diagnoses Chronic midline low back pain with left-sided sciatica Justina Valdez MD [address] [place] [address] [place] [address] [facility] [address] [place] [address] Referral ID Status Reason Start Date Expiration Date Visits Requested Visits Authorized [id number] Authorized Specialty Services Required 12/13/2023 12/12/2024 1 1 [facility] ([facility])* Consultation (Routine) - Pending Review Specialty Diagnoses / Procedures Referred By Contac t Referred To Contact Pain Medicine Diagnoses Chronic midline low back pain with left-sided sciatica Bulging lumbar disc Lumbar foraminal stenosis Benjamin Stein APRN-CNP [address] [facility] [address] [place] [address] Simeon Joe MD [address] [place] [address] Referral ID Status Reason Start Date Expiration Date V isits Requested Visits Authorized [id number] Pending Review 12/27/2023 12/26/2024 1 1 * Physical Therapy (Routine) - Authorized Specialty Diagnoses / Procedures Referred By [facility] t Referred To Contact Rehabilitation Diagnoses Chronic midline low back pain with left-sided sciatica Bulging lumbar disc Lumbar foraminal stenosis Benjamin Stein APRN-CNP [address] [facility] [address] [place] [address] [facility] [address] [place] [address] Referral ID Status Reason Start Date Expiration Date Visits Requested Visits Authorized [id number] Authorized Specialty Services Required 12/27/2023 12/26/2024 1 1 [facility] for referral (narrative)* Consultation (Routine) - Authorized Specialty Diagnoses / Procedures Referred By [facility] t Referred To Contact Rehabilitation Diagnoses Lumbar degenerative disc disease Justina Valdez MD [address] [place] [address] [facility] [address] [place] [address] Referral ID Status Reason Start Date Expiration Date Visits Requested Visits Authorized [id number] Authorized Specialty Services Required 09/02/2023 09/01/2024 1 1 Scheduling Instructions Eval and tx low back issues twice a weekx 4-6 weeks and home exercise program [facility] for referral (narrative)* Consultation (Routine) - Authorized Specialty Diagnoses / Procedures Referred By Contgabriel t Referred To Contact Orthopedic Surgery Diagnoses TOS (thoracic outlet syndrome) Justina Valdez MD [address] [place] [address] Rajendra Hernandez MD [address] [place] [address] Referral ID Status Reason Start Date Expiration Date Visits Requested Visits Authorized [id number] Authorized Specialty Services Required 09/29/2023 09/28/2024 1 1 [facility] for referral (narrative)* Consultation (Routine) - Authorized Specialty Diagnoses / Procedures Referred By Contgabriel t Referred To Contact Neurosurgery Diagnoses Lumbar spondylosis Bulging lumbar disc Justina Valdez MD [address] [place] [address] [place] [address] [address] Referral ID Status Reason Start Date Expiration Date Visits Requested Visits Authorized [id number] Authorized Specialty Services Required 04/09/2024 04/09/2025 1 1 [facility] for visit Narrative* Auth/Cert (Routine) Specialty Diagnoses / Procedures Referred By Contac t Referred To Contact Diagnoses Lumbar radiculopathy Lumbar herniated disc Lumbar radiculopathy [M54.16] Lumbar herniated disc [M51.26] Procedures DECOMPRESSION LUMBAR LAMINOTOMY / L4/5 AND DISCECTOMY Brian Girard MD [address] [place] [phone] Phone: tel: fax: Referral ID Status Reason Start Date Expiration Date Visits Re quested Visits Authorized [id number] 1 1 [facility] Summary Purpose Family History Relationship Condition Age at Onset Recorded Date/T shun father Malignant neoplasm Unknown Not Specified Heart disease Unknown Relationship Condition Age at Onset Recorded Date/T shun father Malignant neoplasm Unknown maternal grandfather Heart disease Unknown paternal grandfather Heart disease Unknown Advance Directives Advance Directive Response Recorded Date/ Time Advance Directives No May 21, 2021 1:16pm Date Activated Date Inactivated Comments 01/30/2024 1:07 PM 02/01/2024 5:40 PM Date Activated Date Inactivated Comments 01/30/2024 1:07 PM 02/01/2024 5:40 PM Date Activated Date Inactivated Comments 05/15/2024 8:43 PM 05/16/2024 2:02 PM Date Activated Date Inactivated Comments 01/30/2024 1:07 PM 02/01/2024 5:40 PM Advance Directive Response Recorded Date/ Time Advance Directives No May 21, 2021 12:16pm Date Activated Date Inactivated Comments 05/15/2024 8:43 PM 05/16/2024 2:02 PM Date Activated Date Inactivated Comments 01/30/2024 1:07 PM 02/01/2024 5:40 PM Chief Complaint and Reason for Visit Chief Complaint Refer by Justina yañez, diverticular disease Reason for Visit Diverticular disease of intestine without perforation or abscess Chief Complaint Admit Date sore throat, cough September 17, 2024 4:45pm Reason for Visit Admit Date Bronchitis September 17, 2024 4:45pm Reason for Referral Specialty Diagnoses / Procedures Referred By Raquel feliciano Referred To Contact Radiology Diagnoses Postoperative abdominal pain Procedures CT abdomen and pelvis without contrast CT abdomen and pelvis without contrast Maverick Nick MD [address] [place] [address] [facility] [address] [place] [address] Phone: [phone] Referral ID Status Reason Start Date Expiration Date Visits Re quested Visits Authorized [id number] Closed 02/14/2024 02/13/2025 1 1 Specialty Diagnoses / Procedures Referred By Contac t Referred To Contact Diagnoses Diverticulitis large intestine w/o perforation or abscess w/o bleeding Procedures ECG 12 lead Maverick Nick MD [address] [place] [address] Referral ID Status Reason Start Date Expiration Date V isits Requested Visits Authorized [id number] Pending Review 01/10/2024 01/09/2025 1 1 Specialty Diagnoses / Procedures Referred By Contac t Referred To Contact Diagnoses Diverticulitis large intestine w/o perforation or abscess w/o bleeding Procedures Unlisted Procedure / Surgery Maverick Nick MD [address] [place] [address] Referral ID Status Reason Start Date Expiration Date V isits Requested Visits Authorized [id number] Pending Review 01/10/2024 01/09/2025 1 1 Specialty Diagnoses / Procedures Referred By Contac t Referred To Contact Diagnoses Disorder of sacrum Procedures Case request operating room: INJECTION BLOCK SACROILIAC JOINT Lucila Verdugo PA [address] [place] [address] Referral ID Status Reason Start Date Expiration Date V isits Requested Visits Authorized [id number] Pending Review 01/05/2024 01/04/2025 1 1 Specialty Diagnoses / Procedures Referred By Contac t Referred To Contact Diagnoses Diverticulitis Procedures Colonoscopy Maverick Nick MD [address] [place] [address] Referral ID Status Reason Start Date Expiration Date V isits Requested Visits Authorized [id number] Pending Review 12/06/2023 12/05/2024 1 1 Additional Source Comments INFORMATION SOURCE (unrecogn ized section and content) DATE CREATED AUTHOR 05/22/2021 [facility] DATE CREATED AUTHOR AUTHOR'S ORGANIZ ATION 07/15/2021 [facility] DATE CREATED AUTHOR AUTHOR'S ORGANIZ ATION 07/19/2022 [facility] DATE CREATED AUTHOR AUTHOR'S ORGANIZ ATION 05/24/2024 [facility] DATE CREATED AUTHOR AUTHOR'S ORGANIZ ATION 10/23/2024 [facility] DATE CREATED AUTHOR AUTHOR'S ORGANIZ ATION 01/09/2025 [facility] REASON FOR VISIT (unrecogniz ed section and content) Reason Comments Follow-up Lumbar follow up Specialty Diagnoses / Procedures Referred By Contac t Referred To Contact Spine Care Diagnoses Lumbar spondylosis Daina Bailey, ARBORIST-JUNIOR PROGRAMMER ANALYST [address] [place] [address] Phone: tel: fax: Benjamin Stein, ARBORIST-JUNIOR PROGRAMMER ANALYST [address] [place] [address] Phone: tel: fax: Referral ID Status Reason Start Date Expiration Date V isits Requested Visits Authorized [id number] Pending Review 01/08/2025 01/08/2026 1 1 Reason Comments Constipation Back Pain Reason Comments Sore Throat Cough Reason Comments Follow-up 3 month follow up Reason Comments Follow-up Post op lumbar gini otomy & disc Reason Comments Follow-up ep/follow up after p hysical therapy & kassie/er follow up/[facility] only Reason Onset Date Comments Pain 04/06/2024 Reason Comments Sinus Problem Earache Headache Reason Comments Back Pain ER Follow up Reason Onset Date Comments steroid injections 05/03/2024 Reason Comments Follow-up Follow up from , post op davinci sigmoid colectomy performed 01/30/24 at [facility] Reason Onset Date Comments Med Refill 04/03/2024 Reason Comments POST-OP VISIT Follow-up Reason Comments Cough Sore Throat Reason Comments Annual Exam Reason Onset Date Comments Post-op Problem 02/24/2024 Reason Comments Follow-up Follow up from CT an d labs performed 02/15/24, discuss results Reason Comments POST-OP VISIT POST DAVINCI COLECTO MY PERFORMED 01/30/24 Reason Onset Date Comments Vomiting 01/29/2024 Reason Comments Procedure Discuss surgery, sig moid colectomy, last colon 01/04/24 Reason Comments Consult New patient lumbar p [facility] films not w/c xrays prior Specialty Diagnoses / Procedures Referred By Contac t Referred To Contact Neurosurgery Diagnoses Chronic midline low back pain with left-sided sciatica Justina Valdez MD [address] [place] [address] [place] [address] [address] [facility] [address] [place] [address] Referral ID Status Reason Start Date Expiration Date Visits Requested Visits Authorized [id number] Pending Review Specialty Services Required 12/13/2023 12/12/2024 1 1 Reason Comments Back Pain Specialty Diagnoses / Procedures Referred By Contac t Referred To Contact Pain Medicine Diagnoses Chronic midline low back pain with left-sided sciatica Bulging lumbar disc Lumbar foraminal stenosis Benjamin Stein, ARBORIST-JUNIOR PROGRAMMER ANALYST [address] [facility] [address] [place] [address] Simeon Joe MD [address] [place] [address] Referral ID Status Reason Start Date Expiration Date V isits Requested Visits Authorized [id number] Pending Review 12/27/2023 12/26/2024 1 1 Reason Comments Diverticulitis DIVERTICULITIS, WAS IN [facility] 11/21/23, PER DR BRASWELL' CONSULT NOTE WANTS DR NICK TO DO DAVINCI COLON RESECTION, MADE APPT WITH LAITH AT [facility] Reason Comments PORSHA Complaining of back pain Reason Comments Follow-up Still complaining of low back and abdominal pains Reason Comments Follow-up ER-Diverticulitis cough, congestion#5 [place] CRV, SORE THROAT Care Teams (unrecognized sec tion and content) Team Status: Active Member Role Status Dates PHYSICIAN NO FAMILY Primary Care Provider Active Team Status: Inactive Member Role Status Dates PHYSICIAN NO FAMILY Primary Care Provider Active Start: January 09, 2024 End: January 09, 2024 Saida Kumar DO Attending Provider Active St art: January 09, 2024 End: January 09, 2024 Tutor Coordinator Relationship Specialty Start Date End Date Justina Valdez MD [address] [place] [address] PCP - General Family Medicine 09/06/22 Tutor Coordinator Relationship Specialty Start Date End Date Justina Valdez MD [address] [place] [address] PCP - General Family Medicine 09/06/22 Tutor Coordinator Relationship Specialty Start Date End Date Justina Valdez MD [address] [place] [address] PCP - General Family Medicine 09/06/22 Tutor Coordinator Relationship Specialty Start Date End Date Justina Valdez MD [address] [place] [address] PCP - General Family Medicine 09/06/22 Tutor Coordinator Relationship Specialty Start Date End Date Justina Valdez MD [address] [place] [address] PCP - General Family Medicine 09/06/22 Tutor Coordinator Relationship Specialty Start Date End Date Justina Valdez MD [address] [place] [address] PCP - General Family Medicine 09/06/22 Tutor Coordinator Relationship Specialty Start Date End Date Justina Valdez MD [address] [place] [address] PCP - General Family Medicine 09/06/22 Tutor Coordinator Relationship Specialty Start Date End Date Justina Valdez MD [address] [place] [address] PCP - General Family Medicine 09/06/22 Tutor Coordinator Relationship Specialty Start Date End Date Justina Valdez MD [address] [place] [address] PCP - [facility] Medicine 09/06/22 Tutor Coordinator Relationship Specialty Start Date End Date Justina Valdez MD [address] [place] [address] PCP - [facility] Medicine 09/06/22 Tutor Coordinator Relationship Specialty Start Date End Date Justina Valedz MD [address] [place] [address] PCP - [facility] 09/06/22 Tutor Coordinator Relationship Specialty Start Date End Date Justina Valdez MD [address] [place] [address] PCP - [facility] 09/06/22 Tutor Coordinator Relationship Specialty Start Date End Date Justina Valdez MD [address] [place] [address] PCP - [facility] 09/06/22 Tutor Coordinator Relationship Specialty Start Date End Date Justina Valdez MD [address] [place] [address] PCP - [facility] 09/06/22 Tutor Coordinator Relationship Specialty Start Date End Date Justina Valdez MD [address] [place] [address] PCP - [facility] 09/06/22 Tutor Coordinator Relationship Specialty Start Date End Date Justina Valdez MD [address] [place] [address] PCP - General Family Medicine 09/06/22 Tutor Coordinator Relationship Specialty Start Date End Date Justina Valdez MD [address] [place] [address] PCP - General Family Medicine 09/06/22 Tutor Coordinator Relationship Specialty Start Date End Date Justina Valdez MD [address] [place] [address] PCP - General Family Medicine 09/06/22 Tutor Coordinator Relationship Specialty Start Date End Date Justina Valdez MD [address] [place] [address] PCP - General Family Medicine 09/06/22 07/24/24 Tutor Coordinator Relationship Specialty Start Date End Date Justina Valdez MD [address] [place] [address] PCP - General Family Medicine 09/06/22 07/24/24 Tutor Coordinator Relationship Specialty Start Date End Date Justina Valdez MD [address] [place] [address] PCP - General Family Medicine 09/06/22 07/24/24 Tutor Coordinator Relationship Specialty Start Date End Date Justina Valdez MD [address] [place] [address] PCP - General Family Medicine 09/06/22 07/24/24 Tutor Coordinator Relationship Specialty Start Date End Date Justina Valdez MD [address] [place] [address] PCP - General Family Medicine 09/06/22 07/24/24 Tutor Coordinator Relationship Specialty Start Date End Date Justina Valdez MD [address] [place] [address] PCP - General Family Medicine 09/06/22 07/24/24 Tutor Coordinator Relationship Specialty Start Date End Date Justina Valdez MD [address] [place] [address] PCP - General Family Medicine 09/06/22 07/24/24 Tutor Coordinator Relationship Specialty Start Date End Date Justina Valdez MD [address] [place] [address] PCP - General Family Medicine 09/06/22 07/24/24 Tutor Coordinator Relationship Specialty Start Date End Date Justina Valdez MD [address] [place] [address] PCP - General Family Medicine 09/06/22 07/24/24 Tutor Coordinator Relationship Specialty Start Date End Date Justina Valdez MD [address] [place] [address] PCP - General Family Medicine 09/06/22 07/24/24 Tutor Coordinator Relationship Specialty Start Date End Date Justina Valdez MD [address] [place] [address] PCP - General Family Medicine 09/06/22 07/24/24 Tutor Coordinator Relationship Specialty Start Date End Date Justina Valdez MD [address] [place] [address] PCP - General Family Medicine 09/06/22 07/24/24 Tutor Coordinator Relationship Specialty Start Date End Date Justina Valdez MD [address] [place] [address] PCP - General Family Medicine 09/06/22 07/24/24 Tutor Coordinator Relationship Specialty Start Date End Date Justina Valdez MD [address] [place] [address] PCP - General Family Medicine 09/06/22 07/24/24 Team Status: Inactive Member Role Status Dates PHYSICIAN NO FAMILY Primary Care Provider Active Start: September 17, 2024 End: September 17, 2024 Lesly Argueta APRN Attending Provider Active S tart: September 17, 2024 End: September 17, 2024 Tutor Coordinator Relationship Specialty Start Date End Date Daina Bailey APRN-JUNIOR PROGRAMMER ANALYST [address] [place] [address] PCP - General Family Medicine 07/25/24 Tutor Coordinator Relationship Specialty Start Date End Date Daina Bailey APRN-SARAH [address] [place] [address] PCP - General Family Medicine 07/25/24 Tutor Coordinator Relationship Specialty Start Date End Date Daina Bailey APRN-JUNIOR PROGRAMMER ANALYST [address] [place] [address] PCP - General Family Medicine 07/25/24 Tutor Coordinator Relationship Specialty Start Date End Date Daina Bailey APRN-CNP [address] [place] [address] PCP - General Family Medicine 07/25/24 Tutor Coordinator Relationship Specialty Start Date End Date Daina Bailey APRN-JUNIOR PROGRAMMER ANALYST [address] [place] [address] PCP - General Family Medicine 07/25/24 Tutor Coordinator Relationship Specialty Start Date End Date Daina Bailey APRN-CNP [address] [place] [address] PCP - General [facility] Medicine 07/25/24 Tutor Coordinator Relationship Specialty Start Date End Date Daina Bailey APRN-CNP [address] [place], [place] [address] PCP - General Family Medicine 07/25/24 Goals (unrecognized section and content) Goals may be documented in a n alternate section Scheduled Active and Recently Administ ered Medications (unrecognized section and content) Medication Order 05/14/2024 05/15/2024 05/16/2024 acetaminophen (TYLENOL EXTRA STRENGTH) tablet 1,000 mg (COMPLETED) 1,000 mg, oral, Once, On Tue05/15/24 at 1530, For 1 dose, Pre-op 1522 (Given - Provider: Melanie Garcia RN) aprepitant (EMEND) capsule 40 mg (COMPLETED) 40 mg, oral, Once, On Tue05/15/24 at 1530, For 1 dose, Pre-op 1522 (Given - Provider: Melanie Garcia RN) ceFAZolin (ANCEF) 2,000 mg in sodium chloride 0.9 % 50 mL IVPB-MBP (COMPLETED) 2,000 mg, intravenous, at 100 mL/hr, Administer over 30 Minutes, Every 8 hours, First dose on Tue05/15/24 at 2045, For 2 doses, Pharmacy to adjust per renal function; Start 8 hours after pre-op dose for total of 3 doses including pre-op dose. Infuse all doses within 24 hours of initial dose. For patient less than 120 kg. ADD-VANTAGE/MBP- Discard 24 hours after activating; dissolve drug prior to administration, Indication: Surgical prophylaxis 2149 (New Bag - Provider: Nabor Hutchison RN)2219 (Stop Bag - Provider: Nabor Hutchison RN) 0426 (New Bag - Provider: Nabor Hutchison RN)0456 (Stop Bag - Provider: Nabor Hutchison RN) diazePAM (VALIUM) tablet 5 mg 5 mg, oral, Every 8 hours, First dose on Tue05/15/24 at 2045, Look-alike/sound-alike medication - verify indication for use. Do not use solution in feeding tubes (due to absorption to plastic tubing). Tablets may be crushed and administered in tubes (except j-tube) 2155 (Given - Provider: Nabor Hutchison RN) 0507 (Given - Provider: Nabor Hutchison RN) gabapentin (NEURONTIN) capsule 300 mg 300 mg, oral, See admin instructions, Starting on Tue05/15/24 at 204, Look-alike/sound-alike medication - verify indication for use. sennosides-docusate sodium (SENOKOT-S) 8.6-50 mg 1 tablet 1 tablet, oral, 2 times daily, First dose on Tue05/16/24 at 0900, Start Post-Op Day 1: Hold for diarrhea 0900 (Not Given - Provider: Nicole Hart RN - Reason: Patient/family refused) sodium chloride 0.9 % flush 3 mL 3 mL, intravenous, Every 12 hours scheduled, First dose on Tue05/15/24 at 2100, Pre-op 2156 (Given - Provider: Nabor Hutchison RN) 0900 (Given - Provider: Nicole Hart, REJI) sodium chloride 0.9 % flush 3 mL 3 mL, intravenous, Every 12 hours scheduled, First dose on Tue05/15/24 at 2100, Once tolerating oral intake 2156 (Given - Provider: Nabor Hutchison RN) 0900 (Given - Provider: Nicole Hart, REJI) vancomycin (VANCOCIN) IVPB 1750 mg in 500 mL sodium chloride 0.9% (CMPD premix) (COMPLETED) 1,750 mg (rounded from 1,671 mg = 15 mg/kg 111.4 kg Order-specific weight), intravenous, at 268 mL/hr, Administer over 120 Minutes, Once, On Tue05/15/24 at 1530, For 1 dose, Pre-op, VESICANT (YELLOW), Indication: Surgical prophylaxis 153 (New Bag - Provider: Melanie Garcia RN)1739 (Stop Bag - Provider: Lucila Hennessy APRN-BARK PEELER) Continuous Medication Order 05/14/2024 05/15/2024 05/16/2024 lactated ringers infusion 75 mL/hr, intravenous, Continuous, Starting on Tue05/15/24 at 1530, Pre-op, If fluid restriction is not indicated, infuse at a rate up to 5 mL/kg/hr not to exceed the total replacement volume (2 ml/kg/hr) from the time NPO status was initiated. 1530 (Due) lactated ringers infusion 75 mL/hr, intravenous, Continuous, Starting on Tue05/15/24 at 1800, PACU (only) 1800 (Due) PRN Medication Order 05/14/2024 05/15/2024 05/16/2024 acetaminophen (TYLENOL) tablet 650 mg 650 mg, oral, Every 4 hours PRN, mild pain - pain scale 1-3, fever of 38.6, Starting on Tue05/15/24 at 2041, Do not give for fever if patient received acetaminophen containing products within 4 hours. bisacodyL (DULCOLAX) suppository 10 mg 10 mg, rectal, As needed, constipation, if no BM within 6 hours of administering Milk of Magnesia, Starting on Roxane 05/17/24 at 0000, Start Post-Op Day 2 Look-alike/sound-alike medication - verify indication for use. cyclobenzaprine (FLEXERIL) tablet 10 mg 10 mg, oral, 3 times daily PRN, muscle spasms, Starting on Tue05/15/24 at 2040 dextrose (GLUTOSE) 40 % gel 15 g 15 g, oral, As needed, low blood sugar, blood glucose less than 70 mg/dL, Starting on Tue05/15/24 at 2040, If patient conscious and taking PO. If blood glucose is not greater than 70 mg/dL after initial treatment, repeat treatment. dextrose 5 % (D5W) infusion 100 mL/hr, intravenous, Continuous PRN, blood glucose less than 70 mg/dL, Starting on Tue05/15/24 at 204, For 1 day, Use immediately following dextrose 50% or glucagon treatment for patients who are unconscious or NPO. Contact prescriber for additional orders. If blood glucose is not greater than 70 mg/dL after initial treatment, repeat treatment. dextrose 50 % in water (D50W) 50% solution 25 mL 25 mL, intravenous, As needed, low blood sugar, blood glucose less than 70 mg/dL and unconscious or NPO with IV access, Starting on Tue05/15/24 at 2041, Push over 1-3 minutes STAT. If conscious and not NPO, immediately follow with meal tray or high protein (7 grams) snack if tray not available. If NPO, initiate 5% dextrose in water at 100 mL/hr and contact prescriber for additional orders. If blood glucose is not greater than 70 mg/dL after initial treatment, repeat treatment. VESICANT (RED) Warning: HYPERTONIC solution. fentaNYL (SUBLIMAZE) injection 25 mcg 25 mcg, intravenous, Every 5 min PRN, Pain Scale 1-5, Starting on Tue05/15/24 at 1753, PACU (only), Up to a maximum dose of 150 mcg. Look-alike/sound-alike medication - verify indication for use. fentaNYL (SUBLIMAZE) injection 50 mcg 50 mcg, intravenous, Every 5 min PRN, Pain Scale 6-10, Starting on Tue05/15/24 at 1753, PACU (only), Up to a maximum dose of 150 mcg. Look-alike/sound-alike medication - verify indication for use. 1815 (Given - Provider: Xiomara Bone RN)182 (Given - Provider: Xiomara Bone RN)190 (Given - Provider: Xiomara Bone RN) gentamicin 160 mg in 0.9% sod chl 1000 mL irrigation (bag) (CANCELED) As needed, Starting on Tue05/15/24 at 1658, Intra-op 1658 (Given - Provider: Brian Girard MD - Comment: GIVEN TO BACK TABLE) glucagon HCL injection 1 mg 1 mg, intramuscular, As needed, low blood sugar, blood glucose less than 70 mg/dL and unconscious or NPO without IV access., Starting on Tue05/15/24 at 2041, If conscious and not NPO, immediately follow with meal tray or high protein (7Grams) snack if tray not available. If NPO, initiate IV 5% Dextrose/Water at 100 mL/hr and contact prescriber for additional orders. If blood glucose is not greater than 70 mg/dL after initial treatment, repeat treatment. hydrALAZINE (APRESOLINE) injection 5 mg 5 mg, intravenous, Every 10 min PRN, high blood pressure, systolic blood pressure greater than 160 mmHg, Starting on Tue05/15/24 at 1753, PACU (only), Maximum dose of hydrALAZINE (APRESOLINE) is 20 mg while in PACU Look-alike/sound-alike medication - verify indication for use. Administer IV doses as a slow IV push; maximum rate: 5 mg/minute. HYDROmorphone (DILAUDID) injection 0.2 mg 0.2 mg, intravenous, Every 5 min PRN, Pain Scale 1-5 if pain not controlled by fentanyl, Starting on Tue05/15/24 at 1753, PACU (only), Up to a maximum of 1.2 mg Look-alike/sound-alike medication - verify indication for use. HYDROmorphone (DILAUDID) injection 0.4 mg 0.4 mg, intravenous, Every 5 min PRN, for Pain Scale 6-10 if pain not controlled by fentanyl, Starting on Tue05/15/24 at 1753, PACU (only), Up to a maximum of 1.2 mg Look-alike/sound-alike medication - verify indication for use. 2030 (Given - Provider: Xiomara Bone RN) labetaloL (NORMODYNE,TRANDATE) injection 5 mg 5 mg, intravenous, Every 5 min PRN, high blood pressure, systolic blood pressure greater than 160 mmHg and heart rate greater than 60 beats per minute, Starting on Tue05/15/24 at 1753, PACU (only), Maximum dose of labetalol (TRANDATE) is 20 mg while in PACU Look-alike/sound-alike medication - verify indication for use. lidocaine PF (XYLOCAINE) 10 mg/mL (1 %) injection 1 mg 1 mg (0.1 mL), intradermal, As needed, times 1 per IV attempt for IV start pain control, Starting on Tue05/15/24 at 1519, Pre-op lidocaine-EPINEPHrine (XYLOCAINE W/EPI) 0.5 %-[id number] injection (CANCELED) As needed, Starting on e 05/15/24 at 1708, Intra-op 1708 (Given - Provider: Brain Girard MD) magnesium hydroxide (MILK OF MAGNESIA) suspension 30 mL 30 mL, oral, 2 times daily PRN, if no BM by post-op day 2, Starting on Roxane 05/17/24 at 0000, Start Post-Op Day 2: DO NOT use in Renal/Dialysis patients Shake well. midazolam (PF) (VERSED) injection 2 mg 2 mg, intravenous, As needed, anxiety, Starting on Tue05/15/24 at 1519, Pre-op, May repeat in 10 minutes, if needed, if original midazolam (VERSED) ineffective, Indication: Other, Indication: anxiety 1621 (Given - Provider: Melanie Garcia RN) morphine injection 2 mg 2 mg, intravenous, Every 2 hour PRN, for breakthrough pain, Starting on Tue05/15/24 at 2042, Look-alike/sound-alike medication - verify indication for use. naloxone (NARCAN) injection 0.1 mg 0.1 mg, intravenous, As needed, respiratory depression, Starting on e 05/15/24 at 1753, For 4 doses, PACU (only), Maximum dose: 0.4 mg Look-alike/sound-alike medication - verify indication for use. ondansetron (PF) (ZOFRAN) injection 4 mg 4 mg, intravenous, Once as needed, nausea, Starting on 05/15/24 at 1753, For 1 dose, PACU (only), Administer over 2-5 minutes. ondansetron (PF) (ZOFRAN) injection 4 mg 4 mg, intravenous, Every 6 hours PRN, nausea, vomiting, Starting on 05/15/24 at 2042, Administer over 2-5 minutes. 0210 (Given - Provid er: Nabor Hutchison RN) oxyCODONE-acetaminophen (PERCOCET) 5-325 mg per tablet 1 tablet(Linked Group 1) 1 tablet, oral, Every 4 hours PRN, moderate pain - pain scale 4-6, Starting on Tue05/15/24 at 2042, Look-alike/sound-alike medication - verify indication for use. 2336 (See Alternative - Provider: Nabor Hutchison RN) 0854 (See Alternative - Provider: Nicole Hart, REJI) oxyCODONE-acetaminophen (PERCOCET) 5-325 mg per tablet 2 tablet(Linked Group 1) 2 tablet, oral, Every 4 hours PRN, severe pain - pain scale 7-10, Starting on Tue05/15/24 at 2042, Look-alike/sound-alike medication - verify indication for use. 2336 (Given - Provider: Nabor Hutchison RN) 0854 (Given - Provider: Nicole Hart RN) sodium chloride 0.9 % flush 3 mL 3 mL, intravenous, As needed, line care, before and after each intermittent use, Starting on Tue05/15/24 at 1519, Pre-op sodium chloride 0.9 % flush 3 mL 3 mL, intravenous, As needed, line care, before and after each intermittent use, Starting on Tue05/15/24 at 2041, Once tolerating oral intake thrombin (recombinant) (RECOTHROM) solution (CANCELED) As needed, Starting on Tue05/15/24 at 1658, Intra-op 1658 (Given - Provider: Brian Girard MD) Linked Groups Order Group 1: oxyCODONE-acetaminophen (PERCOCET) 5-325 mg per tablet 1 tabletJump to med 1 tablet, oral, Every 4 hours PRN, moderate pain - pain scale 4-6, Starting on Tue05/15/24 at 2042, Look-alike/sound-alike medication - verify indication for use. Or oxyCODONE-acetaminophen (PERCOCET) 5-325 mg per tablet 2 tabletJump to med 2 tablet, oral, Every 4 hours PRN, severe pain - pain scale 7-10, Starting on Tue05/15/24 at 2042, Look-alike/sound-alike medication - verify indication for use. FOR RECORDS PERTAINING TO PATIENTS WHO ARE [...] BE BASED ON THE PRIMARY CLINICAL RECORDS. [facility] [employer] [facility]. provides no warranty or guarantee of the accuracy or completeness of information in this document.
--- OUTSIDE RECORDS SUMMARY | 2025-01-12 05:54 | XMS_ITS | Encounter Summary ---
Author Organization [facility] Sys tem Address [id number] [address] [place] [address] Care Team Providers Care Complex Director Name Role Phone PollyVioleta magaña CEO & BOARD DIRECTOR-STRESS ANALYST Primary Care Provide r Encounter Details Date Type Department Care Team (Late Contact Info) Description 11/18/2023 Orders Only [facility] [address] [place] [phone] External, Scanning Provider Social History Tobacco Use [...] often do you attend chur ch or congregation services? More than 4 times per year 06/21/2022 Do you belong to any clubs o r organizations such as yazidi groups, unions, fraternal [...] Answer Date Recorded Total Score 0 11/18/2023 [facility] of Occupat ional Health - [...] Recorded Do you need help finding a [facility] career [facility] and/or a training program? No [...] file Travel History Travel Start Travel End [place] 12/22/2024 12/28/2024 documented as of this encounter Plan of Treatment Upcoming Encounters Date Type Department Care Team (Late st Contact Info) Description 02/05/2025 6:45 AM EDT Appointment [facility] - MRI Imaging [address] [place] [address] 03/12/2025 8:00 AM EDT Office Visit [facility] [address] [place] [phone] Violeta Bailey APRN-STRESS ANALYST [address] [place] [address] documented as of this encounter Procedures Procedure [...] documented as of this encounter Care Teams Complex Director Relationship Specialty Start Date End Date iVoleta Bailey APRN-STRESS ANALYST [address] [place], [place] [phone] PCP - General Family Medicine 07/25/24 documented as of this encounter
--- OUTSIDE RECORDS SUMMARY | 2025-01-12 05:54 | XMS_ITS | Encounter Summary ---
Author Organization [facility] Sys tem Address [facility][id number] [address] [place] [address] Care Team Providers Care Cloth Printing Back Tender Name Role Phone PollyVioleta magaña BUSINESS SYSTEMS MANAGER-LIME KILN WORKER Primary Care Provide r Encounter Details Date Type Department Care Team (Late Contact Info) Description 03/18/2023 Orders Only [facility] [address] [place] [phone] External, Scanning Provider Social History Tobacco Use [...] often do you attend chur ch or pentecostal services? More than 4 times per year 06/21/2022 Do you belong to any clubs o r organizations such as jain groups, unions, fraternal or athletic groups, or [...] Answer Date Recorded Total Score 0 03/22/2023 [facility] of Occupat ional Health - Occupational Stress [...] Recorded Do you need help finding a [facility] career center and/or a training [...] file Travel History Travel Start Travel End [place] 12/22/2024 12/28/2024 documented as of this encounter Plan of Treatment Upcoming Encounters Date Type Department Care Team (Late st Contact Info) Description 02/05/2025 6:45 AM EDT Appointment [facility] - MRI Imaging [address] [place] [address] 03/12/2025 8:00 AM EDT Office Visit [facility] Family Medicine [address] [place] [address] Violeta Bailey APRN-CNP [address] [place] [address] documented as of this encounter Visit Diagnoses Not on filedocumented in this encounter Additional Health Concerns Assessment Noted Time PHQ-9 Depression Total Score: 0 10/13/19 23 7:00 AM EDT documented as of this encounter Care Teams Cloth Printing Back Tender Relationship Specialty Start Date End Date Violeta Bailey APRN-LIME KILN WORKER [address] [place] [address] PCP - General Family Medicine 07/25/24 documented as of this encounter
--- OUTSIDE RECORDS SUMMARY | 2025-01-12 05:54 | XMS_ITS | Encounter Summary ---
Author Organization [facility] Sys tem Address [facility]-[id number] [address] [place] [address] Care Team Providers Care Rehabilitation Tech Name Role Phone PollyVioleta magaña TELEPHONE INFORMATION SUPERVISOR-AIR TRAFFIC CONTROL OPERATOR Primary Care Provide r Reason for Visit * Reason Onset Date Comments Transition Of Care 02/02/2024 Encounter Details Date Type Department Care Team (Late st Contact Info) Description 02/02/2024 [facility] [place] [address] Lesly Herrera RN Transition Of Care Social History Tobacco Use Types Packs/Day Years Used Date Smoking Tobacco: Former Cigarettes 1 - 2012 Smokeless Tobacco: Never Alcohol Use Standard Drinks/Week Comments Yes 0 (1 standard drink = 0.6 oz pur e alcohol) rare-2 drinks/year [facility] Utilities Answer Date Recorded In the past 12 months has [employer], gas, oil, or water [employer] threatened to shut off services in your [...] week 06/21/2022 How often do you attend [facility] or yarsani services? More than 4 times per year [...] Answer Date Recorded Total Score 0 11/24/2023 [facility] of Occupat ional Health - Occupational Stress [...] 12/22/2024 12/28/2024 documented as of this encounter Miscellaneous Notes * Telephone Encounter - Lesly Herrera RN - 02/02/2024 9:28 AM EDT Images from the original note were not included. Transition of Care Additional Questions/Concerns Requiring PCP Follow-Up: -Annual Greenhouse Manager was unable to contact the patient. -Patient does not have a hospital follow up appointment scheduled with her PCP at this time. This documentation is being used for Transition of Care purposes: Yes Goal: Patient will demonstrate a safe transition from hospital to home. Diagnosis on Discharge: Recurrent sigmoid diverticulosis Discharge Specialty: Gastroenterology Name of Discharging Facility: [facility] Date of Facility Discharge: 01.30.24-02.01.24 Date of Interactive Contact and Name of Pickle Processor: 02.02.24 09 Left a message. 02.02.24 0817 No answer. [...] Info) Description 02/05/2025 6:45 AM EDT Appointment [facility] - MRI Imaging [address] [facility] [place] [address] 03/12/2025 8:00 AM EDT Office Visit [facility] Family [facility] [address] [place] [address] Violeta Bailey APRN-CNP [address] [place] [address] documented as of this encounter Visit Diagnoses Not on filedocumented in this encounter Additional Health Concerns Assessment Noted Time PHQ-9 Depression Total Score: 0 11/24/19 24 7:00 AM EDT documented as of this encounter Care Teams Rehabilitation Tech Relationship Specialty Start Date End Date Violeta Bailey APRN-CNP [address] [place] [address] PCP - General Family Medicine 07/25/24 documented as of this encounter
--- OUTSIDE RECORDS SUMMARY | 2025-01-12 05:54 | XMS_ITS | Encounter Summary ---
Author Organization [facility] Sys tem Address [facility] [place]-[id number] [address] [place] [address] Care Team Providers Care Account Representative Name Role Phone PollyVioleta magaña REGISTERED NURSE CARDIAC-HIDE OR SKIN BUFFER Primary Care Provide r Reason for Visit * Reason Onset Date Comments Transition Of Care 11/22/2023 Encounter Details Date Type Department Care Team (Late st Contact Info) Description 11/22/2023 [facility] [address] [place] [phone] Saloni Pinedo, REJI Transition Of Care Social [...] How often do you attend chur or methodist services? More than 4 times per year 06/21/2022 Do you belong to any clubs o r organizations such as jehovah's witness groups, unions, fraternal or athletic groups, or [...] Answer Date Recorded Total Score 0 11/24/2023 [facility] of Occupat [facility] - Occupational Stress Questionnaire Answer Date Recorded [...] Recorded Do you need help finding a [facility] career [facility] and/or a training program? [...] file Travel History Travel Start Travel End [place] 12/22/2024 12/28/2024 documented as of this encounter [...] Discharge Specialty: Gastroenterology Name of Discharging Facility: [facility] Date of Facility Discharge: 11/18/23 - 11/21/23 Date of Interactive Contact and Name of Bolt Loader: Medication Review Completed: Yes Medication Reconciliation Questions/Concerns: [...] Saloni Pinedo RN, can be reached at [phone] and will follow for a minimum of 30 days following hospitalization. Communication with Home Health Agencies and Other Services Utilized/Needed by the Patient: none documented in this encounter Plan of Treatment Upcoming Encounters Date Type Department Care Team (Late st Contact Info) Description 02/05/2025 6:45 AM EDT Appointment [facility] - MRI Imaging [address] [place] [address] 03/12/2025 8:00 AM EDT Office Visit [facility] [address] [place] [address] Violeta Bailey APRN-CNP [address] [place] [address] documented as of this encounter Visit Diagnoses Not on filedocumented in this encounter Additional Health Concerns Assessment Noted Time PHQ-9 Depression Total Score: 0 11/18/19 24 7:00 AM EDT documented as of this encounter Care Teams Account Representative Relationship Specialty Start Date End Date Violeta Bailey APRN-CNP [address] [place], [place] [phone] PCP - General Family Medicine 07/25/24 documented as of this encounter
--- OUTSIDE RECORDS SUMMARY | 2025-01-12 05:54 | XMS_ITS | Encounter Summary ---
Author Organization [facility] [facility] Address [facility][id number] [address] [place] [address] Care Team Providers Care Senior Technical Editor Name Role Phone Violeta Bailey TALENT DEVELOPMENT DIRECTOR-BARKING MACHINE FEEDER Primary Care Provide r Encounter Details Date Type Department Care Team (Late Contact Info) Description 10/20/2022 Telephone [facility] - Family Medicine [address] [place] [address] Erin Koenig CMA Social History Tobacco Use [...] often do you attend chur ch or nondenominational services? More than 4 times per year 06/21/2022 Do you belong to any clubs o r organizations such as buddhism groups, unions, fraternal or athletic groups, or [...] Answer Date Recorded Total Score 0 10/12/2022 [facility] of Occupat ional Health - [...] Recorded Do you need help finding a [facility] career center and/or a training [...] file Travel History Travel Start Travel End [place] 12/22/2024 12/28/2024 COVID-19 Exposure Response Date Recorded In the [...] that the lab she had done at [facility] was coded correctly and [facility] is not a screening lab that is covered by her ins. Pt understood and will wait for a return call when Kristina reviews her Wellness coding. documented in this encounter Plan of Treatment Upcoming Encounters Date Type Department Care Team (Late st Contact Info) Description 02/05/2025 6:45 AM EDT Appointment [facility] - MRI Imaging [address] [place] [address] 03/12/2025 8:00 AM EDT Office Visit [facility] [address] [facility] [phone] Violeta Bailey, TALENT DEVELOPMENT DIRECTOR-BARKING MACHINE FEEDER [address] [place] [address] documented as of this encounter Visit Diagnoses Not on filedocumented in this encounter Additional Health Concerns Assessment Noted Time PHQ-9 Depression Total Score: 0 10/13/19 23 7:00 AM EDT documented as of this encounter Care Teams Senior Technical Editor Relationship Specialty Start Date End Date Violeta Bailey APRN-SARAH [address] [place] [address] PCP - General Family Medicine 07/25/24 documented as of this encounter
--- OUTSIDE RECORDS SUMMARY | 2025-01-12 05:54 | XMS_ITS | Encounter Summary ---
Author Organization [employer] Sys tem Address [facility]-[id number] [address] [place] [address] Care Team Providers Care Barber Instructor Name Role Phone Lynn Violeta LIFEGUARD-SERVICE LINE COORDINATOR Primary Care Provide r Encounter Details Date Type Department Care Team (Latest Contact Info) Description 01/09/2025 Travel Social History Tobacco Use Types Packs/Day Years Used Date Smoking Tobacco: Former Cigarettes 1 2 006 - 2012 Smokeless Tobacco: Never Comments:1 pk a day in past Alcohol Use Standard Drinks/Week Comments Yes 0 (1 standard drink = 0.6 oz pur e alcohol) rare-2 drinks/year [facility] Utilities Answer Date Recorded In the past 12 months has [employer] electric, gas, oil, or water company threatened [...] often do you attend chur ch or jainism services? More than 4 times per year 06/21/2022 Do you belong to any clubs o r organizations such as adventism groups, unions, fraternal or athletic groups, or [...] Answer Date Recorded Total Score 0 01/07/2025 [facility] of Occupat ional Health - Occupational Stress [...] Recorded Do you need help finding a [facility] career center and/or a training [...] file Travel History Travel Start Travel End [place] 12/22/2024 12/28/2024 documented as of this encounter Plan of Treatment Upcoming Encounters Date Type Department Care Team (Late st Contact Info) Description 02/05/2025 6:45 AM EDT Appointment [facility] - MRI Imaging [address] [place] [address] 03/12/2025 8:00 AM EDT Office Visit [facility] Family Medicine [address] [place] [address] Violeta Bailey APRN-SERVICE LINE COORDINATOR [address] [place] [address] documented as of this encounter Visit Diagnoses Not on filedocumented in this encounter Additional Health Concerns Assessment Noted Time PHQ-9 Depression Total Score: 0 01/08/20 3:57 PM EDT A Body Mass Index follow-up plan has been documented for the patient 01/08/2025 8:06 AM EDT documented as of this encounter Care Teams Barber Instructor Relationship Specialty Start Date End Date Violeta Bailey, LIFEGUARD-SERVICE LINE COORDINATOR [address] [place] [address] PCP - General Family Medicine 07/25/24 documented as of this encounter
--- OUTSIDE RECORDS SUMMARY | 2025-01-12 05:54 | XMS_ITS | Encounter Summary ---
Author Organization [facility] Sys tem Address [facility][id number] [address] [place] [address] Care Team Providers Care Vulcanized Fiber Unit Operator Name Role Phone MichVioleta hayes STITCH BONDING MACHINE TENDER-HONE OPERATOR Primary Care Provide r Encounter Details Date Type Department Care Team (Late Contact Info) Description 03/23/2023 Orders Only [facility] [address] [place] [address] Rao Valdez MD [address] [facility]. Provider retired 10/23/24 [place], [place] [phone] Social History Tobacco Use Types Packs/Day Years [...] often do you attend chur ch or scientologist services? More than 4 times per year 06/21/2022 Do you belong to any clubs o r organizations such as scientology groups, unions, fraternal or athletic groups, or [...] Answer Date Recorded Total Score 0 03/22/2023 [facility] of Occupat ional Health [...] Info) Description 02/05/2025 6:45 AM EDT Appointment [facility] - MRI Imaging [address] [place] [address] 03/12/2025 8:00 AM EDT Office Visit [facility] Family Medicine [address] [place] [address] Violeta Bailey APRN-CNP [address] [place] [address] documented as of this encounter Visit Diagnoses Not on filedocumented in this encounter Additional Health Concerns Assessment Noted Time PHQ-9 Depression Total Score: 0 03/22/20 23 7:00 AM EDT documented as of this encounter Care Teams Vulcanized Fiber Unit Operator Relationship Specialty Start Date End Date Violeta Bailey APRN-CNP [address] [place] [address] PCP - General Family Medicine 07/25/24 documented as of this encounter
--- OUTSIDE RECORDS SUMMARY | 2025-01-12 05:54 | XMS_ITS | Encounter Summary ---
Author Organization [facility] [employer] Sys tem Address [facility]-[id number] [address] [place] [address] Care Team Providers Care District Attorney Name Role Phone MichnidhijosueVioleta magaña HEAD RESIDENT-ENGINEERING MANAGER Primary Care Provide r Encounter Details Date Type Department Care Team (Late Contact Info) Description 10/03/2023 Telephone [facility] [address] [place] [address] Rao Valdez MD [address]. Provider retired 10/23/24 [place], [place] [phone] Social History Tobacco Use Types Packs/Day Years [...] any clubs o r organizations such as pentecostalism groups, unions, fraternal or athletic groups, or [...] Answer Date Recorded Total Score 0 09/29/2023 [facility] of Occupat ional Health - Occupational [...] file Travel History Travel Start Travel End [place] 12/22/2024 12/28/2024 documented as of this encounter [...] Info) Description 02/05/2025 6:45 AM EDT Appointment [facility] - MRI Imaging [address] [place] [address] 03/12/2025 8:00 AM EDT Office Visit [facility] Family [facility] [address] [place] [address] Violeta Bailey APRN-ENGINEERING MANAGER [address] [facility] [address] documented as of this encounter Results * [...] documented as of this encounter Care Teams District Attorney Relationship Specialty Start Date End Date Violeta Bailey APRN-ENGINEERING MANAGER [address] [place] [address] PCP - General Family Medicine 07/25/24 documented as of this encounter
--- OUTSIDE RECORDS SUMMARY | 2025-01-12 05:54 | XMS_ITS | Encounter Summary ---
Author Organization [facility] tem Address [facility]-[id number] [address] [place] [address] Care Team Providers Care Assembly Press Operator Name Role Phone PollyVioleta magaña SHOPPING INVESTIGATOR-TOP ICER Primary Care Provide r Encounter Details Date Type Department Care Team (Late Contact Info) Description 11/09/2023 Orders Only [facility] [address] [place] [phone] External, Scanning Provider Social History Tobacco Use [...] often do you attend chur ch or temple services? More than 4 times per year 06/21/2022 Do you belong to any clubs o r organizations such as hoahaoism groups, unions, fraternal or athletic groups, or [...] Answer Date Recorded Total Score 0 11/09/2023 [facility] of Occupat ional Health - Occupational [...] Recorded Do you need help finding a [facility] career [facility] and/or a training program? [...] file Travel History Travel Start Travel End [place] 12/22/2024 12/28/2024 documented as of this encounter Plan of Treatment Upcoming Encounters Date Type Department Care Team (Late st Contact Info) Description 02/05/2025 6:45 AM EDT Appointment [facility] - MRI Imaging [address] [place] [address] 03/12/2025 8:00 AM EDT Office Visit [facility] [address] [place] [phone] Violeta Bailey, RAMON-TOP ICER [address] [place] [address] documented as of this encounter Procedures Procedure [...] documented as of this encounter Care Teams Assembly Press Operator Relationship Specialty Start Date End Date Violeta Bailey, SHOPPING INVESTIGATOR-TOP ICER [address] [place], [place] [phone] PCP - General Family Medicine 07/25/24 documented as of this encounter
--- OUTSIDE RECORDS SUMMARY | 2025-01-12 05:54 | XMS_ITS | Encounter Summary ---
Author Organization [facility] Sys tem Address [facility] [place][id number] [address] [place] [address] Care Team Providers Care Report Clerk Name Role Phone PollyVioleta magaña CNC MILLING MACHINIST-BANKING MANAGER Primary Care Provide r Encounter Details Date Type Department Care Team (Late Contact Info) Description 11/03/2023 Orders Only [facility] [address] [place] [phone] External, Scanning Provider Social History Tobacco Use [...] often do you attend chur ch or mandaeism services? More than 4 times per year 06/21/2022 Do you belong to any clubs o r organizations such as shinto groups, unions, fraternal or athletic groups, or [...] Answer Date Recorded Total Score 0 09/29/2023 [facility] of Occupat ional Health - Occupational Stress [...] Recorded Do you need help finding a [facility] career [facility] and/or a training [...] file Travel History Travel Start Travel End [place] 12/22/2024 12/28/2024 documented as of this encounter Plan of Treatment Upcoming Encounters Date Type Department Care Team (Late st Contact Info) Description 02/05/2025 6:45 AM EDT Appointment [facility] - MRI Imaging [address] [place] [address] 03/12/2025 8:00 AM EDT Office Visit [facility] [address] [place] [address] Violeta Bailey, ARACELYBANKING MANAGER [address] [place] [address] documented as of this encounter Procedures Procedure [...] documented as of this encounter Care Teams Report Clerk Relationship Specialty Start Date End Date Violeta Bailey, CNC MILLING MACHINIST-BANKING MANAGER [address] [place], [place] [phone] PCP - General Family Medicine 07/25/24 documented as of this encounter
--- OUTSIDE RECORDS SUMMARY | 2025-01-12 05:54 | XMS_ITS | Encounter Summary ---
Author Organization [facility] Sys tem Address [facility] [place]-[id number] [address] [place] [address] Care Team Providers Care Microcomputer Technician Name Role Phone Lynn Violeta EMERGENCY VETERINARIAN-OUTPATIENT INTERVIEWING CLERK Primary Care Provide r Encounter Details Date Type Department Care Team (Late st Contact Info) Description 01/13/2024 Orders Only [facility] [address] [place] [phone] Diana Gillespie LPN Diverticular disease Social History [...] often do you attend chur ch or shinto services? More than 4 times per year 06/21/2022 Do you belong to any clubs o r organizations such as roman catholic groups, unions, fraternal or athletic groups, or [...] Recorded Total Score 0 11/24/2023 [facility] of Occupat ional Health - Occupational Stress [...] Recorded Do you need help finding a [facility] career center and/or a training program? [...] Info) Description 02/05/2025 6:45 AM EDT Appointment [facility] - MRI Imaging [address] [place] [address] 03/12/2025 8:00 AM EDT Office Visit [facility] Family Medicine [address] [place] [address] Violeta Bailey, EMERGENCY VETERINARIAN-OUTPATIENT INTERVIEWING CLERK [address] [place] [address] documented as of this encounter Procedures Procedure [...] documented as of this encounter Care Teams Microcomputer Technician Relationship Specialty Start Date End Date Violeta Bailey, EMERGENCY VETERINARIAN-OUTPATIENT INTERVIEWING CLERK [address] [place] [address] PCP - General Family Medicine 07/25/24 documented as of this encounter
--- OUTSIDE RECORDS SUMMARY | 2025-01-12 05:54 | XMS_ITS | Encounter Summary ---
Author Organization [facility] Address [facility]-[id number] [address] [place] [address] Care Team Providers Care Electric Motor Fitter Name Role Phone Lynn Violeta SUPERVISOR POWER REACTOR-LABELLING MACHINE OPERATOR Primary Care Provide r Encounter Details Date Type Department Care Team (Latest Contact Info) Description 01/07/2025 Travel Social History Tobacco Use Types Packs/Day Years Used Date Smoking Tobacco: Former Cigarettes 1 2 006 - 2012 Smokeless Tobacco: Never Comments:1 pk a day in past Alcohol Use Standard Drinks/Week Comments Yes 0 (1 standard drink = 0.6 oz pur e alcohol) rare-2 drinks/year [facility] Utilities Answer Date Recorded In the past 12 months has [employer] electric, gas, oil, or water company threatened [...] often do you attend chur ch or amish services? More than 4 times per year [...] Answer Date Recorded Total Score 0 01/07/2025 [facility] of Occupat ional Health - [...] Recorded Do you need help finding a [facility] career center and/or a training program? No [...] file Travel History Travel Start Travel End [place] 12/22/2024 12/28/2024 documented as of this encounter Plan of Treatment Upcoming Encounters Date Type Department Care Team (Late st Contact Info) Description 02/05/2025 6:45 AM EDT Appointment [facility] - MRI Imaging [address] [place] [address] 03/12/2025 8:00 AM EDT Office Visit [facility] [address] [place] [address] Violeta Bailey, SUPERVISOR POWER REACTOR-LABELLING MACHINE OPERATOR [address] [place] [address] documented as of this encounter Visit Diagnoses Not on filedocumented in this encounter Additional Health Concerns Assessment Noted Time PHQ-9 Depression Total Score: 0 01/08/20 3:57 PM EDT A Body Mass Index follow-up plan has been documented for the patient 01/08/2025 8:06 AM EDT documented as of this encounter Care Teams Electric Motor Fitter Relationship Specialty Start Date End Date Violeta Bailey, SUPERVISOR POWER REACTOR-LABELLING MACHINE OPERATOR [address] [place] [address] PCP - General Family Medicine 07/25/24 documented as of this encounter
--- OUTSIDE RECORDS SUMMARY | 2025-01-12 05:54 | XMS_ITS | Encounter Summary ---
Author Organization [facility] [employer] [facility] tem Address [facility]-[id number] [address] [place] [address] Care Team Providers Care Solar Installation Foreman Name Role Phone MichnidhijosueVioleta magaña FINANCE EXECUTIVE-STIFF LEG OPERATOR Primary Care Provide r Encounter Details Date Type Department Care Team (Late st Contact Info) Description 03/04/2020 Telephone [facility]geons [address] [place] [address] [place] [address] [place] [phone] Kalyn Abdul Social History Tobacco Use Types [...] file Travel History Travel Start Travel End [place] 12/22/2024 12/28/2024 documented as of this encounter Miscellaneous Notes * Telephone Encounter - Kalyn Abdul - 03/04/2020 9:50 AM EDT LMOM FOR REFERRAL 03/04/2020 documented in this encounter Plan of Treatment Upcoming Encounters Date Type Department Care Team (Late st Contact Info) Description 02/05/2025 6:45 AM EDT Appointment [facility] - MRI Imaging [address] [place] [address] 03/12/2025 8:00 AM EDT Office Visit [facility] [address] [place] [address] Violeta Bailey APRN-CNP [address] [place] [address] documented as of this encounter Visit Diagnoses Not on filedocumented in this encounter Care Teams Solar Installation Foreman Relationship Specialty Start Date End Date Violeta Bailey APRN-CNP [address] [place], [place] [phone] PCP - General Family Medicine 07/25/24 documented as of this encounter
--- OUTSIDE RECORDS SUMMARY | 2025-01-12 05:54 | XMS_ITS | Clinical Summary ---
Author Organization [facility] Healthcare Address [address] [place] [address] Care Team Providers Care Thermal Engineer Name Role Phone Unavailable Primary Care Provider [...]
--- OUTSIDE RECORDS SUMMARY | 2025-01-12 05:54 | XMS_ITS | Encounter Summary ---
Author Organization [facility] Sys tem Address [facility][id number] [address] [place] [address] Care Team Providers Care Tax Advisor Name Role Phone Lynn Violeta OPTOMETRY ASSISTANT-LICENSED AND CERTIFIED MIDWIFE Primary Care Provide r Encounter Details Date Type Department Care Team (Late st Contact Info) Description 10/12/2023 Orders Only [facility] [address] [place] [phone] Diana Gillespie LPN TOS (thoracic outlet syndrome) [...] often do you attend chur ch or yazidi services? More than 4 times per year 06/21/2022 Do you belong to any clubs o r organizations such as taoist groups, unions, fraternal or athletic groups, or [...] Answer Date Recorded Total Score 0 09/29/2023 [facility] of Occupat ional Health - [...] Recorded Do you need help finding a [facility] career center and/or a training program? [...] file Travel History Travel Start Travel End [place] 12/22/2024 12/28/2024 documented as of this encounter Plan of Treatment Upcoming Encounters Date Type Department Care Team (Late st Contact Info) Description 02/05/2025 6:45 AM EDT Appointment [facility] - MRI Imaging [address] [place] [address] 03/12/2025 8:00 AM EDT Office Visit [facility] Family Medicine [address] [place] [address] Violeta Bailey APRN-LICENSED AND CERTIFIED MIDWIFE [address] [place] [address] documented as of this encounter Procedures Procedure Name Priority Date/Time Associated Diagnosis Comments AMB REFERRAL TO ORTHOPEDIC SURGERY Routine 10/11/2023 TOS (thoracic outlet syndrome) documented in this encounter Results * Ambulatory referral to Orthopedic Surgery (10/11/2023) Rao Valdez MD OUTPATIENT REFERRAL ORDERABL ES Final Result MANUALLY TRANSCRIBED RESULTS documented in this encounter Visit Diagnoses Diagnosis TOS (thoracic outlet syndrome) Brachial plexus lesions documented in this encounter Additional Health Concerns Assessment Noted Time PHQ-9 Depression Total Score: 0 09/29/19 24 7:00 AM EST documented as of this encounter Care Teams Tax Advisor Relationship Specialty Start Date End Date Violeta Bailey APRN-LICENSED AND CERTIFIED MIDWIFE [address] [place] [address] PCP - General Family Medicine 07/25/24 documented as of this encounter
--- OUTSIDE RECORDS SUMMARY | 2025-01-12 05:54 | XMS_ITS | Clinical Summary ---
Author Organization [facility] tem Address [facility]-[id number] [address] [place] [address] Care Team Providers Care Wiring Mechanic Name Role Phone MichVioleta hayes PROFESSOR OF SURGERY-YOUTH TEACHER Primary Care Provide r Allergies Active Allergy Reactions Criticality Noted Date Comments Amoxicillin Rash Low 01/09/2024 Iodinated Contrast Media Hives,Other (See Comments) Medium 09/04/2019 Penicillins Rash Low 09/03/2019 Medications orphenadrine (NORFLEX) 100 mg 12 hr tablet Take 1 tablet (100 mg total) by mouth daily as needed for muscle spasms. 5 Active methylPREDNISo lone (MEDROL, RADAH,) 4 mg tablet Take 1 tablet (4 mg total) by mouth in the morning. follow package directions. 21 tablet 5 Active codeine-guaiFE Nesin (guaiFENesin AC) 10-100 mg/5 mL liquidIndicati ons:Bronchitis Take 10 mL by mouth 3 (three) times a day as needed for cough. 473 mL 5 01/08/20 25 Discontinued methylPREDNISo lone (MEDROL, RADHA,) 4 mg tablet Take 1 tablet (4 mg total) by mouth in the morning. follow package directions. 21 tablet 5 01/08/20 25 Discontinued Active Problems Problem Noted Date Diagnosed Date [...] urethral dilation. We do plan to place [facility] bladder solution. Vitamin D deficiency 10/25/2018 Acne 05/25/2016 Allergic rhinitis 05/25/2016 Depressive disorder 05/25/2016 Diverticular disease 05/25/2016 Lumbar spondylosis 05/25/2016 Tarsal tunnel syndrome 05/25/2016 Seasonal allergies Encounters Date Type Department Care Team Description 01/10/2025 2:30 PM EDT Office Visit [facility] [address] [place] [address] Paulette Goncalves APRN-YOUTH TEACHER Status post lumbar laminectomy (Primary Dx); Acute midline low back pain without sciatica; Bowel dysfunction; Lumbar spondylosis 01/10/2025 2:05 PM EDT - 01/10/2025 11:59 PM EDT Hospital Encounter [facility] - Radiology Imaging [address] [facility] [address] [place] [address] Back pain, unspecified back location, unspecified back pain laterality, unspecified chronicity Discharge Disposition: Home 01/09/2025 Travel 01/08/2025 [facility] [address] [facility] [address] [place] [phone] Erin Niño CNA Back pain, unspecified back location, unspecified back pain laterality, unspecified chronicity (Primary Dx) 01/07/2025 3:45 PM EDT Office Visit [facility] [address] [place] [address] Violeta Bailey APRN-CNP Lumbar spondylosis (Primary Dx) 01/07/2025 Travel 10/29/2024 11:15 AM EDT Office Visit [facility] [address] [place] [address] Violeta Bailey APRN-CNP Bronchitis (Primary Dx) 10/29/2024 Travel 10/22/2024 11:34 AM EDT - 10/22/2024 11:59 PM EDT Hospital Encounter [facility] - Radiology [address] [place] [address] Bronchitis Discharge Disposition: Home 10/22/2024 11:15 AM EDT [facility] [address] [place] [address] Violeta Bailey APRN-CNP Bronchitis 10/22/2024 Travel from Last 3 Months Immunizations Immunization [...] 0.6 oz pur e alcohol) rare-2 drinks/year [facility] Utilities Answer Date Recorded In the past 12 months has e electric, gas, oil, or water company threatened [...] often do you attend chur ch or mosque services? More than 4 times per year [...] Answer Date Recorded Total Score 0 01/07/2025 [facility] - Occupational Stress Questionnaire Answer [...] file Travel History Travel Start Travel End [place] 12/22/2024 12/28/2024 Last Filed Vital Signs Vital Sign Reading Time Taken Comments Blood Pressure 152/109 01/10/2025 2:23 PM EDT Pulse 68 01/10/2025 2:23 PM EDT Temperature 37 C (98.6 F) 10/08/2024 1:10 PM EDT Respiratory Rate 18 01/07/2025 3:56 PM EDT Oxygen Saturation 99% 01/07/2025 3:56 PM EDT Inhaled Oxygen Concentration - - Weight 108.9 kg (240 lb) 01/10/2025 2:23 PM EDT Height 162.6 cm (5' 4 ) 01/10/2025 2:23 PM EDT Body Mass Index 41.2 01/10/2025 2:23 PM EDT Plan of Treatment Upcoming Encounters Date Type Department Care Team (Late st Contact Info) Description 02/05/2025 6:45 AM EDT Appointment [facility] - MRI Imaging [address] [place] [address] 03/12/2025 8:00 AM EDT Office Visit [facility] [address] [place] [address] Violeta Bailey, PROFESSOR OF SURGERY-YOUTH TEACHER [address] [place] [address] Health Maintenance Due Date Last Done Comments Pap Smear 1986 Zoster (Shingles) Vaccine (1 of 2) 2015 Mammogram 10/18/2024 10/19/2023, 09/22, 12/15/2021 Influenza Vaccine 03/25/2025 Adult BMI Follow Up Plan 01/07/2026 01/07/2025 Depression Screening 01/07/2026 01/07/2025 Adult BMI Screening 01/10/2026 01/10/2025 Tobacco Screening 01/10/2026 01/10/2025 DTaP,Tdap and Td Vaccines (2 - Td [...] Todd Ingram MD on 10/22/2024 3:43 PM Violeta Bailey APRN-YOUTH TEACHER IMG DIAGNOSTIC IMAGIN G ORDERABLES Final Result * Colonoscopy Report (01/04/2024 7:56 AM EDT) Narrative SYSTEMGENERATED, DOCUMENTATION - 01/04/2024 7:56 AM EDT This order has been auto-finalized for image and report archival in PACs. *For full report details, please reach out to your physician. This image is visible to you in MyChart.* Janelle Boone MD IMG OR IMG ORDERABLES Aura l Result * Mammography screening bilateral with CAD [...] Most Recently Relevant to Health Maintenance Insurance Advance Directives * Full Code (Latest Code Status on File) Date Activated Date Inactivated Comments 05/15/2024 8:43 PM 05/16/2024 2:02 PM * Full Code Date Activated Date Inactivated Comments 01/30/2024 1:07 PM 02/01/2024 5:40 PM Care Teams Wiring Mechanic Relationship Specialty Start Date End Date Violeta Bailey APRN-YOUTH TEACHER [address] [place] [address] PCP - General Family Medicine 07/25/24
--- OUTSIDE RECORDS SUMMARY | 2025-01-12 05:54 | XMS_ITS | Encounter Summary ---
Author Organization [facility] Sys tem Address [facility] [place]-[id number] [address] [place] [address] Care Team Providers Care Cia Agent Name Role Phone Lynn Violeta FILM MOUNTER-MAINFRAME PROGRAMMER Primary Care Provide r Encounter Details Date Type Department Care Team (Late Contact Info) Description 04/17/2024 Telephone [facility] [address] [place] [phone] Mohini Hinson MA Social History Tobacco Use Types Packs/Day Years Used Date Smoking Tobacco: Former Cigarettes 1 2012 Smokeless Tobacco: Never Alcohol Use Standard Drinks/Week Comments Yes 0 (1 standard drink = 0.6 oz pur e alcohol) rare-2 drinks/year [facility] Utilities Answer Date Recorded In the past 12 months has [employer], gas, oil, or water [employer] threatened to shut off services in your [...] Answer Date Recorded Total Score 0 04/09/2024 [facility] of Occupat ional Health [...] Recorded Do you need help finding a [place] [employer] career center and/or a training program? No [...] file Travel History Travel Start Travel End [place] 12/22/2024 12/28/2024 documented as of this encounter Plan of Treatment Upcoming Encounters Date Type Department Care Team (Late st Contact Info) Description 02/05/2025 6:45 AM EDT Appointment [facility] - MRI Imaging [address] [place] [address] 03/12/2025 8:00 AM EDT Office Visit [facility] Family Medicine [address] [place] [phone] Violeta Bailey APRN-CNP [address] [place] [address] documented as of this encounter Visit Diagnoses Not on filedocumented in this encounter Additional Health Concerns Assessment Noted Time PHQ-9 Depression Total Score: 0 04/09/20 24 7:00 AM EDT documented as of this encounter Care Teams Cia Agent Relationship Specialty Start Date End Date Violeta Bailey APRN-MAINFRAME PROGRAMMER [address] [place] [address] PCP - General Family Medicine 07/25/24 documented as of this encounter
--- OUTSIDE RECORDS SUMMARY | 2025-01-12 05:54 | XMS_ITS | Encounter Summary ---
Author Organization [facility] Address [id number] [address] [place] [address] Care Team Providers Care Assembly Associate Name Role Phone MichVioleta hayes HOG DRIVER-HOTEL ROOM ATTENDANT Primary Care Provide r Encounter Details Date Type Department Care Team (Late st Contact Info) Description 01/08/2025 Orders Only [facility] [address] [place] [address] Erin Niño CNA Back pain, unspecified back location, unspecified back pain laterality, unspecified chronicity (Primary Dx) Social History Tobacco Use Types Packs/Day Years Used Date Smoking Tobacco: Former Cigarettes 1 - 2012 Smokeless Tobacco: Never Comments:1 pk a day in past Alcohol Use Standard Drinks/Week Comments Yes 0 (1 standard drink = 0.6 oz pur e alcohol) rare-2 drinks/year [facility] Utilities Answer Date Recorded In the past 12 months has [employer], gas, oil, or water company threatened to [...] week 06/21/2022 How often do you attend [facility] or yazidi services? More than 4 times per year 06/21/2022 Do you belong to any clubs o r organizations such as sikhism groups, unions, fraternal or athletic groups, or [...] Answer Date Recorded Total Score 0 01/07/2025 [facility] of Occupat ional Health - Occupational [...] 02/05/2025 6:45 AM EDT Appointment [facility] - MRI Imaging [address] [place] [address] 03/12/2025 8:00 AM EDT Office Visit [facility] Family Medicine [address] [place] [phone] Violeta Bailey, HOG DRIVER-HOTEL ROOM ATTENDANT [address] [place], [place] [phone] Pending Results Name Type Priority Associated Diagnoses [...] laterality, unspecified chronicity Expected: 01/08/2025, Expires: 01/08/2026 documented as of this encounter Visit Diagnoses Diagnosis Back pain, unspecified back location, unspecified back pain laterality, unspecified chronicity- Primary documented in this encounter Additional Health Concerns Assessment Noted Time PHQ-9 Depression Total Score: 0 01/08/20 3:57 PM EDT A Body Mass Index follow-up plan has been documented for the patient 01/08/2025 8:06 AM EDT documented as of this encounter Care Teams Assembly Associate Relationship Specialty Start Date End Date Violeta Bailey APRN-HOTEL ROOM ATTENDANT [address] [place] [address] PCP - General Family Medicine 07/25/24 documented as of this encounter
--- OUTSIDE RECORDS SUMMARY | 2025-01-12 05:54 | XMS_ITS | Encounter Summary ---
Author Organization [facility] tem Address [id number] [address] [place] [address] Care Team Providers Care Loftsman/Woman Name Role Phone MichnidhijosueVioleta magaña FRUIT GRADER-INSTALLMENT DEALER Primary Care Provide r Encounter Details Date Type Department Care Team (Late Contact Info) Description 04/02/2024 Documentation [facility] [address] [place] [address] Jennifer Patel CMA Social History Tobacco Use Types Packs/Day Years Used Date Smoking Tobacco: Former Cigarettes 1 - 2012 Smokeless Tobacco: Never Alcohol Use Standard Drinks/Week Comments Yes 0 (1 standard drink = 0.6 oz pur e alcohol) rare-2 drinks/year [facility] Utilities Answer Date Recorded In the past 12 months has [employer], gas, oil, or water [employer] threatened to shut off services in your [...] How often do you attend chur or religion services? More than 4 times per year 06/21/2022 Do you belong to any clubs o r organizations such as yazdanism groups, unions, fraternal or athletic groups, or [...] Answer Date Recorded Total Score 0 03/14/2024 [facility] - [...] file Travel History Travel Start Travel End [place] 12/22/2024 12/28/2024 documented as of this encounter Plan of Treatment Upcoming Encounters Date Type Department Care Team (Late st Contact Info) Description 02/05/2025 6:45 AM EDT Appointment [facility] - MRI Imaging [address] [place] [address] 03/12/2025 8:00 AM EDT Office Visit [facility] [address] [place] [phone] Violeta Bailey APRN-CNP [address] [place] [address] documented as of this encounter Visit Diagnoses Not on filedocumented in this encounter Additional Health Concerns Assessment Noted Time PHQ-9 Depression Total Score: 0 03/14/20 24 7:00 AM EDT documented as of this encounter Care Teams Loftsman/Woman Relationship Specialty Start Date End Date Violeta Bailey, ARACELYINSTALLMENT DEALER [address] [place], [place] [phone] PCP - General Family Medicine 07/25/24 documented as of this encounter
--- OUTSIDE RECORDS SUMMARY | 2025-01-12 05:54 | XMS_ITS | Encounter Summary ---
Author Organization [facility] [employer] [facility] tem Address [id number] [address] [place] [address] Care Team Providers Care Electric Shaver Mechanic Name Role Phone Violeta Bailey SALES [employer] MARKETING INTERN-RESIDENT PROGRAM SPECIALIST Primary Care Provide r Encounter Details Date Type Department Care Team (Late Contact Info) Description 05/08/[address] [facility] [address] [place] [address] Staci Young CNA Social History Tobacco Use Types Packs/Day Years Used Date Smoking Tobacco: Former Cigarettes 1 - 2012 Smokeless Tobacco: Never Comments:1 pk a day in past Alcohol Use Standard Drinks/Week Comments Yes 0 (1 standard drink = 0.6 oz pur e alcohol) rare-2 drinks/year [facility] Utilities Answer Date Recorded In the past 12 months has [employer], gas, oil, or water [email or web address] threatened to shut off services in your [...] often do you attend [facility] or holiness services? More than 4 times per year 06/21/2022 Do you belong to any clubs o r organizations such as jainism groups, unions, fraternal or athletic groups, or [...] Answer Date Recorded Total Score 0 05/08/2024 [facility] - Occupational [...] Recorded Do you need help finding a [facility] career center and/or a training program? [...] Info) Description 02/05/2025 6:45 AM EDT Appointment [facility] - MRI Imaging [address] [place] [address] 03/12/2025 8:00 AM EDT Office Visit [facility] [address] [place] [phone] Violeta Bailey APRN-CNP [address] [place] [address] documented as of this encounter Visit Diagnoses Not on filedocumented in this encounter Additional Health Concerns Assessment Noted Time PHQ-9 Depression Total Score: 0 05/08/20 24 7:00 AM EDT documented as of this encounter Care Teams Electric Shaver Mechanic Relationship Specialty Start Date End Date Violeta Bailey, SURAJ [address] [place], [place] [phone] PCP - General Family Medicine 07/25/24 documented as of this encounter
--- NOTE | 2025-01-12 05:58 | ED.GENADUL1 ---
HPI HPI - General Adult General Chief complaint: Extremity Injury, Lower Stated complaint: R KNEE PAIN Time Seen by Provider: 01/12/25 05:48 Source: patient Mode of arrival: walk-in Limitations: no limitations History of Present Illness HPI narrative: This 59-year-old female states while walking she tripped and twisted her right knee sometime yesterday afternoon. She has had progressively worsening pain although she is able to ambulate. No other area of injury is reported. Related Data Home Medications ?Medication ?Instructions ?Recorded ?Confirmed methylprednisolone 4 mg tablets in 4 mg PO Q8H 01/12/25 01/12/25 a dose pack Previous Rx's ?Medication ?Instructions ?Recorded orphenadrine citrate 100 mg 100 mg PO ONCE PRN muscle spasm 01/01/25 tablet,extended release #20 tabs Allergies Allergy/AdvReac Type Severity Reaction Status Date / Time Iodinated Contrast Media Allergy Intermediate Unknown Verified 01/12/25 05:44 Penicillins Allergy Intermediate unknown Verified 01/12/25 05:44 Opioid HPI Opioid Management Most Recent Opioid Data: Last Pain Scale 7 01/01/25, 16:58 Last ORT Total Score 0 11/18/23, 15:11 Last ORT Risk Category Low Risk 11/18/23, 15:11 Review of Systems ROS Status of ROS 10 or more systems reviewed and unremarkable except as noted in history and below [facility] Medical History Diverticulitis ?K57.92 - Diverticulitis of intestine, part unspecified, without perforation or abscess without bleeding (ICD-10) Thoracic outlet syndrome of left thoracic outlet ?G54.0 - Brachial plexus disorders (ICD-10) Arm pain, chronic ?M79.603 - Pain in arm, unspecified (ICD-10) ?G89.29 - Other chronic pain (ICD-10) Diverticulitis ?K57.92 - Diverticulitis of intestine, part unspecified, without perforation or abscess without bleeding (ICD-10) Surgical History Hx of cholecystectomy ?Z90.49 - Acquired absence of other specified parts of digestive tract (ICD-10) H/O: ?Z98.891 - History of uterine scar from previous surgery (ICD-10) Family History Grandfather Family history of CHF (congestive heart failure) Father Family history of cancer Mother Family history of hypertension Social History Within the past year, how often did you have a drink containing alcohol: monthly or less Within the past year, how many standard drinks containing alcohol did you have on a typical day: 1 or 2 Within the past year, how often did you have six or more drinks on one occasion: never Total score: 0 Score interpretation: A score less than 3 is consistent with normal alcohol consumption. Smoking status: Former smoker Non-prescribed substance use: denies use Previous occupational history: [employer] Highest level of school completed/degree received: some college, no degree Are you now , , , , never or living with a partner: In a typical week, how many times do you talk on the telephone with family, friends, or neighbors: 3 or more times per week How often do you get together with friends or relatives: 3 or more times per week How often do you attend scientology or cheondoism services: 4 or more times per year Do you belong to any clubs or organizations such as scientology groups unions, fraternal or athletic groups, or school groups: no Total score: 3 Score interpretation: A score of greater than or equal to 2 indicates the lowest level of social isolation. Little interest or pleasure in doing things: not at all Feeling down, depressed, or hopeless: not at all Feel stressed/tense/nervous/anxious/difficulty sleeping: not at all Gender Identity: female Exam Narrative Exam Narrative: Patient's vital signs are stable and she does not appear acutely distressed. Both lower extremities examined. There is no swelling or effusion of the right knee. No obvious instability is noted and she localizes tenderness over the medial collateral ligament and over the lateral aspect. Neurovascular function is intact distally. The rest of the bony survey of her extremities is negative. Skin is warm and dry. Constitutional Vital Signs, click to edit/add: Last Vital Signs Temp 97.9 F 01/12/25 05:40 Pulse 79 01/12/25 05:40 Resp 20 01/12/25 05:40 BP 160/72 H 01/12/25 05:40 O2 Del Method Room Air 01/12/25 05:40 Course Vital Signs Vital signs: Vital Signs Temperature 97.9 F 01/12/25 05:40 Pulse Rate 79 01/12/25 05:40 Respiratory Rate 20 01/12/25 05:40 Blood Pressure 160/72 H 01/12/25 05:40 Oxygen Delivery Method Room Air 01/12/25 05:40 Temperature 97.9 F 01/12/25 05:40 Pulse Rate 79 01/12/25 05:40 Respiratory Rate 20 01/12/25 05:40 Blood Pressure 160/72 H 01/12/25 05:40 Oxygen Delivery Method Room Air 01/12/25 05:40 Medical Decision Making MDM Narrative Medical decision making narrative: I read the x-rays myself and do not see any fracture. The plan is to immobilize the knee and refer patient to outpatient orthopedics follow-up. Supportive care is advised and she may return anytime for worsening symptoms. Discharge Plan Discharge Chief Complaint: Extremity Injury, Lower Clinical Impression: Right knee sprain Qualifiers: Encounter type: initial encounter Involved ligament of knee: unspecified ligament Qualified Code(s): S83.91XA - Sprain of unspecified site of right knee, initial encounter Patient Disposition: Home, Self-Care Time of Disposition Decision: 06:25 Condition: Good Mode of Transportation: Private Vehicle Prescriptions / Home Meds: No Action orphenadrine citrate 100 mg tablet extended release 100 mg PO ONCE PRN (Reason: muscle spasm) Qty: 20 0RF methylprednisolone 4 mg tablets,dose pack 4 mg PO Q8H Rx Instructions: Taper dose Print Language: Irish Instructions: Knee Sprain (ED) Additional Instructions: Ibuprofen for pain as needed. Follow-up with orthopedist next week. Return for worsening symptoms. Referrals: Violeta Bailey NP [Primary Care Provider] - 1 week Todd Palencia MD [Physician] - 1 week Referral Note: Address: [facility] [address], [place] [address]
== END 2025-01-12 06:46 | disposition home or self-care (01) ==
PROVIDERS: Emergency Provider Emergency Medicine; PCP Nurse Practitioner Family
DX: S83.91XA Sprain of unspecified site of right knee, initial encounter (principal); X50.1XXA Overexertion from prolonged static or awkward postures, initial encounter; Z90.49 Acquired absence of other specified parts of digestive tract; Z87.891 Personal history of nicotine dependence
CPT/HCPCS: 73564; 99283

== ENCOUNTER 2025-02-03 06:03 | Emergency (ER) | payer BC, SELFPAY ==
[2025-02-03 06:13] VITALS: BP 210/90; PULSE 77; TEMP 36.8; O2SAT 98; BMI 41.2
--- OUTSIDE RECORDS SUMMARY | 2025-02-03 06:13 | XMS_ITS | CCD ---
Author Organization [facility] Care Team Providers Care Title I Paraprofessional Name Role Phone Yesica Sunshine Unavailable LAURY, DR SERVANDO Barbour Admitting Unavailable FURLONG, DR SERVANDO Barbour Attending Unavailable FURLONG, DR SERVANDO Barbour Referring Unavailable FURLONG, DR SERVANDO Barbour Primary Care Unavailable FURLONG, DR SERVANDO Barbour Consulting Unavailable ELENA, PHILIP Admitting Unavailable ELENA, PHILIP Attending Unavailable FURLONG, DR SERVANDO Barbour Primary Care Unavailable LUCITA, DR BELÉN Sánchez Consulting Unavailable ELENA, PHILIP Consulting Unavailable MIRAS, DR SERA Sánchez Admitting Unavailable KUNS, DR SERA Sánchez Attending Unavailable FURLONG, DR SERVANDO Barbour Primary Care Unavailable [place], DR JUSTINA Garcia Consulting Unavailable KUNS, DR SERA Sánchez Consulting Unavailable FURLONG, DR SERVANDO Barbour Admitting Unavailable FURLONG, DR SERVANDO Barbour Attending Unavailable FURLONG, DR SERVANDO Barbour Primary Care Unavailable María Hager Unavailable Justina Valdez MD Primary Care Provider [phone] Justina Valdez MD Primary Care Provider [phone] Daina Loyola Primary Care Provide r Daina Loyola Primary Care Provide r JUSTINA VALDEZ Referring Unavailable JUSTINA VALDEZ Primary Care Unavailable JUSTINA VALDEZ Referring Unavailable JUSTINA VALDEZ Primary Care Unavailable BENJAMIN GONCALVES Referring Unavailable JUSTINA VALDEZ Primary Care Unavailable JUSTINA VALDEZ Referring Unavailable JUSTINA VALDEZ Primary Care Unavailable MAVERICK NICK Admitting Unavailable MAVERICK NICK Attending Unavailable MAVERICK NICK Referring Unavailable JUSTINA VALDEZ Primary Care Unavailable ANGIE SWIFT Attending Unavailable DEFRANCE, JUSTINA T Primary Care Unavailable PARK, REINABETYBETHANIE Ulloa Attending Unavailable PARK REINABETYBETHANIE Ulloa Referring Unavailable DEFRANCE, JUSTINA T Primary Care Unavailable LUCILA VERDUGO Attending Unavailable BENJAMIN GONCALVES Referring Unavailable DEFRANCE, JUSTINA T Primary Care Unavailable DEFRANCE, JUSTINA T Referring Unavailable DEFRANCE, JUSTINA T Primary Care Unavailable PARK, REINABETYBETHANIE Ulloa Attending Unavailable PARKMAVERICK Artemio Referring Unavailable DEFRANCE, JUSTINA T Primary Care Unavailable PARKADRIANNEBETHANIE Artemio Referring Unavailable DEFRANCE, JUSTINA T Primary Care Unavailable SIMEON JOE Attending Unavailable SIMEON JOE Referring Unavailable DEFRANCE, JUSTINA T Primary Care Unavailable SIMEON JOE Admitting Unavailable SIMEON JOE Attending Unavailable BENJAMIN GONCALVES Referring Unavailable DEFRANCE, JUSTINA T Primary Care Unavailable PARK REINABETYBETHANIE Ulloa Referring Unavailable DEFRANCE, JUSTINA T Primary Care Unavailable BENJAMIN GONCALVES Referring Unavailable DEFRANCE, JUSTINA T Primary Care Unavailable PARK, REINABETYBETHANIE Ulloa Admitting Unavailable PARKMAVERICK Artemio Attending Unavailable DEFRANCE, JUSTINA T Primary Care Unavailable JUSTINA KERN Attending Unavailable DEFRANCE, JUSTINA T Primary Care Unavailable LUCILA VERDUGO Attending Unavailable DEFRANCE, JUSTINA T Referring Unavailable DEFRANCE, JUSTINA T Primary Care Unavailable PARK, REINABETYBETHANIE Ulloa Attending Unavailable PARK REINABETYBETHANIE Ulloa Referring Unavailable DEFRANCE, JUSTINA T Primary Care Unavailable PARK REINABETYBETHANIE Ulloa Referring Unavailable DEFRANCE, JUSTINA T Primary Care Unavailable DEFRANCE, JUSTINA T Referring Unavailable DEFRANCE, JUSTINA T Primary Care Unavailable LUCILA VERDUGO Attending Unavailable DEFRANCEJUSTINA T Referring Unavailable DEFRANCE, JUSTINA T Primary Care Unavailable DEFRANCE, JUSTINA T Primary Care Unavailable ANALIA WEINSTEIN Attending Unavailab ANALIA Kaur Attending Unavailab ANALIA Kaur Referring Unavailab le DEFRANCE, JUSTINA Feliciano Primary Care Unavailable DEFRANCE, JUSTINA T Primary Care Unavailable ROSMERY RED Attending Unavailable BENJAMIN GONCALVES Referring Unavailable DEFRANCE, JUSTINA T Primary Care Unavailable GONCALVESZOLTANIA Referring Unavailable SCHLACHTER, DAINA Primary Care Unavailable GONCALVES, BENJAMIN Referring Unavailable SCHLACHTER, DAINA Primary Care Unavailable GONCALVES, BENJAMIN Referring Unavailable SCHLACHTER, DAINA Primary Care Unavailable SCHLACHTER, DAINA Referring Unavailable SCHLACHTER, DAINA Primary Care Unavailable PARK, REINANATALLAH M Attending Unavailable DEFRANCEJUSTINA Referring Unavailable DEFRANCE, JUSTINA Feliciano Primary Care Unavailable MAVERICK NICK Attending Unavailable DEFRANCE, JUSTINA Feliciano Referring Unavailable DEFRANCE, JUSTINA Feliciano Primary Care Unavailable DEFRANCE, JUSTINA Feliciano Attending Unavailable DEFRANCE, JUSTINA Feliciano Referring Unavailable DEFRANCE, JUSTINA Feliciano Primary Care Unavailable DEFRANCE, JUSTINA Feliciano Attending Unavailable DEFRANCE, JUSTINA Feliciano Referring Unavailable DEFRANCE, JUSTINA Feliciano Primary Care Unavailable PARKMAVERICK Attending Unavailable DEFRANCE, JUSTINA Feliciano Referring Unavailable DEFRANCE, JUSTINA Feliciano Primary Care Unavailable DEFRANCE, JUSTINA Feliciano Attending Unavailable DEFRANCE, JUSTINA Feliciano Referring Unavailable DEFRANCE, JUSTINA Feliciano Primary Care Unavailable REINBRIAN MORALES Attending Unavailable DEFRANCE, JUSTINA Feliciano Referring Unavailable DEFRANCE, JUSTINA Feliciano Primary Care Unavailable PARKMAVERICK Attending Unavailable DEFRANCE, JUSTINA Feliciano Referring Unavailable DEFRANCE, JUSTINA Feliciano Primary Care Unavailable DEFRANCE, JUSTINA Feliciano Attending Unavailable DEFRANCE, JUSTINA Feliciano Referring Unavailable DEFRANCE, JUSTINA Feliciano Primary Care Unavailable BENJAMIN GONCALVES Attending Unavailable DEFRANCE, JUSTINA Feliciano Referring Unavailable DEFRANCE, JUSTINA Feliciano Primary Care Unavailable BENJAMIN GONCALVES Attending Unavailable SCHLACHTERDAINA Referring Unavailable SCHLACHTER, DAINA Primary Care Unavailable SCHLACHTER, DAINA Attending Unavailable SCHLACHTER, DAINA Referring Unavailable SCHLACHTER, DAINA Primary Care Unavailable SCHLACHTER, DAINA Attending Unavailable SCHLACHTER, DAINA Referring Unavailable SCHLACHTER, DAINA Primary Care Unavailable SCHLACHTER, DAINA Attending Unavailable SCHLACHTER, DAINA Referring Unavailable SCHLACHTER, DAINA Primary Care Unavailable SCHLACHTER, DAINA Attending Unavailable SCHLACHTER, DAINA Referring Unavailable SCHLACHTER, DAINA Primary Care Unavailable BENJAMIN GONCALVES Attending Unavailable SCHLACHTER, DAINA Referring Unavailable SCHLACHTER, DAINA Primary Care Unavailable BRIAN GIRARD Referring Unavailable DEFRANCE, JUSTINA Feliciano Primary Care Unavailable BRIAN GIRARD Referring Unavailable DEFRANCE, JUSTINA Feliciano Primary Care Unavailable BRIAN GIRARD Admitting Unavailable BRIAN GIRARD Attending Unavailable DEFRANCE, JUSTINA Feliciano Primary Care Unavailable ANJALI COPPOLA Referring Unavailable SCHLACHTER, DAINA Primary Care Unavailable Allergies Allergy Classification Reported Allergen(s) Allergy Type Date of Onset Reaction(s) Facility (20 sources) Amoxicillin; Translations: [AMOXICILLIN] Drug Allergy 4 [facility] (6 sources) Penicillin G Drug Allergy 4 [facility] (1 source) Iodine (And Iodine Containting Drugs) Drug allergy (disorder) [facility] (6 sources) Penicillins; Translations: [PENICILLINS] Drug allergy (disorder) 3 Rash [facility] Repository (2 sources) Contrast media Allergy to substance 4 [facility] (20 sources) Penicillins Propensity to adverse reactions to drug 0 [facility] [employer] [facility] (20 sources) Iodinated Contrast Media; Translations: [IODINATED CONTRAST MEDIA] Propensity to adverse reactions to drug 0 Hives, Other (See Comments) [employer] Work Phone: (8 sources) Penicillins Propensity to adverse reactions to drug 0 [facility] Medications Current Medications Medication Drug Class(es) Dates [...] tablets 12 tablet 04/06/2024 04/09/2024 Discontinued (Reorder) [id number] 200 actuat albuterol 0.09 mg/actuat metered dose [...] 1.5 mg/ml oral solution (1 source) Uncompetitive K-xzbrfh-N-aspartate Receptor Antagonist, Sigma-1 Agonist Start: 09-09-2022 Pryor DM 7.5-7.5 MG/5ML 10 ml Orally every [...] 05-17-2024 End: 05-16-2024 Start: 05-17-2024 End: 05-16-2024 metroNIDAZOLE 500 mg oral tablet (7 sources) [...] citrate 100 mg extended release oral tablet (6 sources) Muscle Relaxant Start: 01-01-2025 take 1 [...] Start: 09-17-2024 take 2 tablets by mo ut once daily Prednisone 20 mg tablet Active 40 MG PO Daily 10 September 17, 2024 12:00am Start: 04-09-2024 End: 04-17-2024 [...] therapy) docusate sodium 50 mg / sennosides, fdc 8.6 mg oral tablet (7 sources) Start: [...] - verify indication for use. lactobacillus acidophilus [id number] unt / pectin 100 mg oral tablet [...] tablet 1 09/29/2023 11/24/2023 Discontinued (Alternate therapy) methylPREDNISolone 4 mg oral tablet (17 sources) Corticosteroid Start: 01-15-2025 End: 01-30-2025 methylPREDNISolone (MEDROL, RADHA,) 4 mg tablet Indications: Acute midline low back pain without sciatica , Status post lumbar laminectomy Take 1 tablet (4 mg total) by mouth See Admin Instructions. Use as directed by package instructions 21 tablet 01/15/2025 01/30/2025 Discontinued Start: 10-22-2024 End: 01-15-2025 take 1 tablet by mouth in the morning methylPREDNISolone (MEDROL, RADHA,) 4 mg tablet Take 1 tablet (4 mg total) by mouth in the morning. follow package directions. 21 tablet 01/08/2025 01/15/2025 Discontinued Start: 06-25-2024 End: 10-08-2024 methylPREDNISolone (MEDROL, RADHA,) [...] a day for 6 days Aug, Active 2 ml midazolam 1 mg/ml cartridge (1 [...] doses, PACU (only), Maximum dose: 0.4 mg Look-alike/sound- alike medication - verify indication for use. naloxone (NARCAN) 4 mg/actuation spray,non-aeros ol nasal spray (6 sources) Start: 05-16-2024 End: [...] 11/24/2023 Discontinued (Alternate therapy) polyethylene glycol 3350 96072 mg powder for oral solution (6 sources) [...] deficiency] Onset: 10-25-2018 Chronic Other gastrointestinal disorders (2 sources) Bowel dysfunction; Translations: [Functional intestinal disorder, unspecified] 01-10-2025 Episodic Other gastrointestinal disorders (1 source) Functional intestinal disorder, unspecified; Translations: [Functional intestinal disorder, unspecified] Onset: 01-10-2025 Episodic Other gastrointestinal disorders (1 source) Constipation Onset: 01-07-2025 Episodic Other inflammatory condition of skin (20 [...] [Other chronic pain] Onset: 12-09-2023 Chronic Other non-traumatic joint disorders (1 source) Pain in right knee; Translations: [Pain in joint, lower leg] 01-30-2025 Episodic Other nutritional; endocrine; and metabolic disorders (20 sources) Morbid obesity; Translations: [Morbid (severe) obesity due to excess calories] Onset: 06-21-2022 06-21-2022 Chronic Other upper respiratory disease (20 sources) Allergic rhinitis; Translations: [Allergic rhinitis, unspecified] Onset: 05-25-2016 05-18-2022 Chronic Other upper respiratory disease (20 sources) Seasonal allergy; Translations: [Other seasonal allergic rhinitis] 09-06-2022 Chronic Residual codes; unclassified (4 sources) History of lumbar laminectomy; Translations: [Other specified postprocedural states] 06-25-2024 Episodic Spondylosis; intervertebral disc disorders; other back problems (20 sources) Lumbar spondylosis; Translations: [Spondylosis without myelopathy or radiculopathy, lumbar region] Onset: 05-25-2016 05-18-2022 Chronic Unclassified (1 source) Low back pain, unspecified; Translations: [Low back pain, unspecified] Onset: 01-10-2025 Unclassified (1 source) Sinus Problem Onset: 05-08-2024 Unclassified (1 source) Earache Onset: 05-08-2024 Unclassified (1 source) Annual Exam Onset: 03-08-2024 Unclassified (1 source) POST-OP VISIT Onset: 02-14-2024 Unclassified (1 source) Acute pain of right knee 01-30-2025 Past or Other Problems Problem Classification Problem [...] (20 sources) Mood disorders Onset: 11-09-2023 Resolved: 01-30-2025 11-09-2023 Other and unspecified benign neoplasm (20 [...] [Other specified postprocedural states] Onset: 06-25-2024 Episodic Spondylosis; intervertebral disc disorders; other back problems (20 sources) Chronic low back pain; Translations: [Lumbago with sciatica, left side] Onset: 12-09-2023 11-28-2023 Episodic Unclassified (1 source) Acute cough R05.1 Unclassified (2 sources) History of lumbar laminectomy 06-25-2024 Unclassified (9 sources) Onset: 10-08-2024 Resolved: 01-30-2025 10-08-2024 Results Test Name Value Interpretation Reference Range Facility XR LUMBAR SPINE AP, LATERAL, FLEXION AND EXTENSION ONLYon 01-15-2025 XR LUMBAR SPINE AP, LATERAL, FLEXION AND EXTENSION ONLY XR LUMBAR SPINE AP, LATERAL, FLEXION AND EXTENSION ONLY XR LUMBAR SPINE AP, LATERAL, FLEXION AND EXTENSION ONLY IMPRESSION: Clinical Information: Back pain, unspecified back location, unspecified back pain laterality, unspecified chronicity. Comparison: 11/24/2023. * No fracture. Normal alignment. Mild endplate and facet degenerative changes. No instability. Finalized by Lucila Castro MD on 01/15/2025 1:17 PM Normal [facility] XR CHEST 2 VWSon 10-22-2024 XR CHEST 2 VWS XR CHEST 2 VWS Clinical history: Chest wall pain. Coughing. Comparisons: 04/12/2024. Findings: 2 views of the chest obtained. Heart size and pulmonary vasculature appear within normal limits. Lungs appear clear. No pleural effusion. No pneumothorax identified. IMPRESSION: No evidence for acute cardiopulmonary disease. Finalized by Todd Ingram MD on 10/22/2024 3:43 PM Normal [facility] XR Chest PA and Lateralon Clinical history: Chest wall pain. Coughing. Comparisons: 04/12/2024. Findings: 2 views of the chest obtained. Heart size and pulmonary vasculature appear within normal limits. Lungs appear clear. No pleural effusion. No pneumothorax identified. IMPRESSION: No evidence for acute cardiopulmonary disease. Finalized by Todd Ingram MD on 10/22/2024 3:43 PM SE[facility] Todd Ingram M D - 10/22/2024 Clinical history: Chest wall pain. Coughing. Comparisons: 04/12/2024. Findings: 2 views of the chest obtained. Heart size and pulmonary vasculature appear within normal limits. Lungs appear clear. No pleural effusion. No pneumothorax identified. IMPRESSION: No evidence for acute cardiopulmonary disease. Finalized by Todd Ingram MD on 10/22/2024 3:43 PM [facility] Radiology Study observation (narrative) [facility] XR Chest PA and LateralOrder ed By: Todd Ingram on 10-22-2024 [facility] Work Phone: ABO Rh Repeaton 05-15-2024 ABO A [facility] Rh Nom (Bld) Positive [facility] [place] FLUOROSCOPY UP TO 1 HOURo [...] Yao MD on 05/15/2024 6:14 PM Normal [facility] RF Less than 1 houron 2023 EXAM: [...] Brody Yao MD on 05/15/2024 6:14 PM SE[facility] Brody Yao MD - 05/15/2024 EXAM: [place] [...] Brody Yao MD on 05/15/2024 6:14 PM [facility] Radiology Study observation (narrative) [facility] RF Less than 1 hourOrdered B y: Brody Yao on 05-15-2024 [facility] Work Phone: Surgical Pathologyon 024 Surgical Pathology Normal [facility] Comment on above: Result Comment: [facility] [address] [place] [address] Surgical Pathology Consultation Patient Name:MAR ADAME:1965 (Age: 59)Gender:FTaken:05/15/2024eported:05/22/2024hysician(s):Brian Girard MD ( )Copy To: Rec. #:[id number]: #[id number] Final Pathologic Diagnosis Lumbar 4,5 disc: Gross pathologic evaluation performed Report Electronically Signed Out nsk/05/22/2024Olinda Yang MD Interpretation performed at [facility], [address] [place] [address], License number: [id number]. Clinical History Lumbar radiculopathy, lumbar herniated disc. Gross Description Received in formalin labeled SETZLER, lumbar disc 4, 5 are multiple fragments of cadena-vargas fibroelastic tissue admixed with vargas-yellow soft tissue and vargas-cadena bony material, 4.0 x 2.5 x 1.0 cm in aggregate. No sections are submitted for processing. (GROSS ONLY) [facility]/05/16/2024NSK Specimen(s) Received Lumbar 4,5 disc Fee Codes(s): 1; 25662 Bacteria identified Cx Nom ( U)on 05-04-2024 Service comment (Unsp spec) [Interp] 50-100,000 ORGANISMS/ML NORMAL UROGENITAL SALO [facility] ABO Rh Repeaton 05-03-2024 ABO A [facility] Rh Nom (Bld) Positive [facility] APTTon 05-03-2024 aPTT Coag (PPP) [Time] 32 s [facility] BASIC METABOLIC PANLon 05-03 Anion gap [Moles/Vol] 10 mmol/L Normal 5-15 [facility] Comment on above: Performed By: #### C BCA, PINR, 41722-2, BMP #### [facility] ([id number]) [address] [place] [address], [address] [place] [address] Calcium [Mass/Vol] 9.4 mg/dL Normal 8.5-10.5 [facility] Comment on above: Performed By: #### C BCA, PINR, 02615-2, BMP #### [facility] ([id number]) [address], [address] [place] [address] Chloride [Moles/Vol] 102 mmol/L Normal 98-109 [facility] Comment on above: Performed By: #### C BCA, PINR, 13108-2, BMP #### [facility] ([id number]) [address], [address] [place] [address] CO2 [Moles/Vol] 27 mmol/L Normal 22-32 [facility] Comment on above: Performed By: #### C DAVID, PINR, 76484-5, BMP #### [facility] ([id number]) [address], [address] [place] [address] Creatinine [Mass/Vol] 0.78 mg/dL Normal 0.40-1.00 [facility] Comment on above: Result Comment: METH OD TRACEABLE TO IDMS STANDARD Performed By: #### C DAVID PINR, 06700-4, BMP #### [facility] ([id number]) [address], [address] [place] [address] GFR/1.73 sq M.predicted among non-blacks MDRD (S/P/Bld) [Vol rate/Area] 87 mL/min/{1.73_m2} Normal >59 [facility] Comment on above: Result Comment: Reported eGFR is based on the CKD-EPI 2020 equation that does not use a race coefficient. Performed By: #### C DAVID, PINR, 42573-0, BMP #### [facility] ([id number]) [address], [address] [place] [address] Glucose [Mass/Vol] 130 mg/dL High 65-99 [facility] Comment on above: Performed By: #### C BCA, PINR, 12711-1, BMP #### [facility] ([id number]) [address], [address] [place] [address] Potassium [Moles/Vol] 4.4 mmol/L Normal 3.5-5.0 [facility] Comment on above: Performed By: #### C BCA, PINR, 81285-9, BMP #### [facility] ([id number]) [address], [address] [place] [address] Sodium [Moles/Vol] 139 mmol/L Normal 134-146 [facility] Comment on above: Performed By: #### C BCA, PINR, 15804-9, BMP #### [facility] ([id number]) [address], [address] [place] [address] Urea nitrogen [Mass/Vol] 13 mg/dL Normal 5-23 [facility] Comment on above: Performed By: #### C BCA, PINR, 75429-8, BMP #### [facility] ([id number]) [address], [address] [place] [address] Basic Metabolic Panelon 10-1 Anion gap [Moles/Vol] 10 mmol/L 5 - 15 mmol/L [facility] Calcium [Mass/Vol] 9.4 mg/dL 8.5 - 10. 5 mg/dL [facility] Chloride [Moles/Vol] 102 mmol/L 98 - 109 mmol/L [facility] CO2 [Moles/Vol] 27 mmol/L 22 - 32 mmol/L [facility] Creatinine [Mass/Vol] 0.78 mg/dL 0.40 - 1.00 mg/dL [facility] Comment on above: METHOD TRACEABLE TO IDMS STANDARD eGFR (CKD-EPI)non-race dependent 87 - PINF [facility] Comment on above: Reported eGFR is based on the CKD-EPI 2020 equation that does not use a race coefficient. Glucose [Mass/Vol] 130 mg/dL High 65 - 99 mg/dL [facility] Interpretation and review of laboratory results Abnormal [facility] Potassium [Moles/Vol] 4.4 mmol/L 3.5 - 5.0 mmol/L [facility] Sodium [Moles/Vol] 139 mmol/L 134 - 146 mmol/L [facility] Urea nitrogen [Mass/Vol] 13 mg/dL 5 - 23 mg/dL [facility] CBC AND AUTO DIFFon 10-10-20 24 ABSOLUTE BASOPHIL 0.0 X10E9/L Normal 0.0-0.2 [facility] Comment on above: Performed By: #### C DAVID, PINR, 80950-5, BMP #### [facility] ([id number]) [address], [address] [place] [address] ABSOLUTE NEUTROPHIL 3.0 X10E9/L Normal 1.5-6.6 [facility] Comment on above: Performed By: #### Juanis HERNANDEZ, PINR, 28304-4, BMP #### [facility] ([id number]) [address], [address] [place] [address] Basophils/100 WBC (Bld) 0.5 % Normal [facility] Comment on above: Performed By: #### Juanis HERNANDEZ, PINR, 14815-6, BMP #### [facility] ([id number]) [address], [address] [place] [address] Eosinophils (Bld) [#/Vol] 0.4 10*3/uL Normal 0.0-0.4 [facility] Comment on above: Performed By: #### Juanis HERNANDEZ, PINR, 67861-8, BMP #### [facility] ([id number]) [address], [address] [place] [address] Eosinophils/100 WBC (Bld) 6.4 % Normal [facility] Comment on above: Performed By: #### Juanis HERNANDEZ, PINR, 06409-7, BMP #### [facility] ([id number]) [address], [address] [place] [address] Erythrocyte distribution width (RBC) [Ratio] 13.0 % Normal 11.5-15.0 [facility] Comment on above: Performed By: #### Juanis HERNANDEZ, PINR, 86270-3, BMP #### [facility] ([id number]) [address] [address] [place] [address] Hematocrit (Bld) [Volume fraction] 40.5 % Normal 35-47 [facility] Comment on above: Performed By: #### C DAVID, PINR, 84608-0, BMP #### [facility] ([id number]) [address] [address] [place] [address] Hemoglobin (Bld) [Mass/Vol] 13.9 g/dL Normal 11.7-15.5 [facility] Comment on above: Performed By: #### C DAVID PINR, 37736-0, BMP #### [facility] ([id number]) [address] [address] Lymphocytes (Bld) [#/Vol] 2.2 10*3/uL Normal 1.0-3.5 [facility] Comment on above: Performed By: #### C DAVID, PINR, 25862-5, BMP #### [facility] ([id number]) [address] [address] Lymphocytes/100 WBC (Bld) 36.4 % Normal [facility] Comment on above: Performed By: #### Juanis HERNANDEZ, PINR, 81857-9, BMP #### [facility] ([id number]) [address] [address] [place] [address] MCH (RBC) [Entitic mass] 33.6 pg Normal 27-34 [facility] Comment on above: Performed By: #### C BCA, PINR, 34033-3, BMP #### [facility] ([id number]) [address] [address] [place] [address] MCHC (RBC) [Mass/Vol] 34.2 g/dL Normal 32-36 [facility] Comment on above: Performed By: #### C BCA, PINR, 21244-7, BMP #### [facility] ([id number]) [address], [address] [place] [address] MCV (RBC) [Entitic vol] 98 fL Normal 80-100 [facility] Comment on above: Performed By: #### C DAVID, PINR, 03834-8, BMP #### [facility] ([id number]) [address], [address] [place] [address] Monocytes (Bld) [#/Vol] 0.5 10*3/uL Normal 0-0.9 [facility] Comment on above: Performed By: #### C DAVID, PINR, 32701-8, BMP #### [facility] ([id number]) [address], [address] [place] [address] Monocytes/100 WBC (Bld) 8.2 % Normal [facility] Comment on above: Performed By: #### C DAVID, PINR, 93046-4, BMP #### [facility] ([id number]) [address], [address] [place] [address] Neutrophils/100 WBC (Bld) 48.5 % Normal [facility] Comment on above: Performed By: #### C BCA, PINR, 05645-6, BMP #### [facility] ([id number]) [address], [address] [place] [address] Platelet mean volume (Bld) [Entitic vol] 8.3 fL Normal 7-12 [facility] Comment on above: Performed By: #### C BCA, PINR, 28124-3, BMP #### [facility] ([id number]) [address], [address] [place] [address] Platelets (Bld) [#/Vol] 327 10*3/uL Normal 150-450 [facility] Comment on above: Performed By: #### C BCA, PINR, 63100-2, BMP #### [facility] ([id number]) [address], [address] [place] [address] RBC COUNT 4.13 X10E12/L Normal 3.80-5.20 [facility] Comment on above: Performed By: #### C BCA, PINR, 10958-2, BMP #### [facility] ([id number]) [address], [address] [place] [address] WBC (Bld) [#/Vol] 6.1 10*3/uL Normal 4.0-11.0 [facility] Comment on above: Performed By: #### C BCA, PINR, 47974-6, BMP #### [facility] ([id number]) [address], [address] [place] [address] CBC auto differentialon 04-24 Basophils (Bld) [#/Vol] 0.0 10*3/uL [facility] Basophils/100 WBC (Bld) 0.5 % [facility] Eosinophils (Bld) [#/Vol] 0.4 10*3/uL [facility] Eosinophils/100 WBC (Bld) 6.4 % [facility] Erythrocyte distribution width (RBC) [Ratio] 13.0 % 11.5 - 15.0 % [facility] Hematocrit (Bld) [Volume fraction] 40.5 % 35 - 47 % [facility] Hemoglobin (Bld) [Mass/Vol] 13.9 g/dL 11.7 - 15.5 g/dL [facility] Lymphocytes (Bld) [#/Vol] 2.2 10*3/uL [facility] Lymphocytes/100 WBC (Bld) 36.4 % [facility] MCH (RBC) [Entitic mass] 33.6 pg 27 - 34 pg [facility] MCHC (RBC) [Mass/Vol] 34.2 g/dL 32 - 36 g/dL [facility] MCV (RBC) [Entitic vol] 98 fL 80 - 100 fL [facility] Monocytes (Bld) [#/Vol] 0.5 10*3/uL [facility] Monocytes/100 WBC (Bld) 8.2 % [facility] Neutrophils (Bld) [#/Vol] 3.0 10*3/uL [facility] Neutrophils/100 WBC (Bld) 48.5 % [facility] Platelet mean volume (Bld) [Entitic vol] 8.3 fL 7 - 12 fL [facility] Platelets (Bld) [#/Vol] 327 10*3/uL [facility] RBC (Bld) [#/Vol] 4.13 10*6/uL [facility] WBC corrected for nucl RBC Auto (Bld) [#/Vol] 6.1 [facility] No Panel Informationon 05-03 [facility] PROTIME AND INRon 05-03-2024 INR Coag (PPP) [Relative time] 1.0 {INR} Normal 0.8-1.1 [facility] Comment on above: Performed By: #### C FRANCHESCA HERNANDEZ, 20904-6, BMP #### [facility] ([id number]) [address], [address] [place] [address] PT Coag (PPP) [Time] 11.4 s Normal 9.8-13.2 [facility] Comment on above: Performed By: #### C FRANCHESCA HERNANDEZ, 22912-4, BMP #### [facility] ([id number]) [address], [address] [place] [address] Protime & INRon 05-03-2024 INR Coag (PPP) [Relative time] 1.0 {INR} [facility] PT Coag (PPP) [Time] 11.4 s [facility] Type and screenon 05-03-2024 ABO A [facility] Rh Nom (Bld) Positive [facility] URINALYSISon 05-03-2024 Bilirubin Ql (U) Negative Normal NEG [facility] Comment on above: Performed By: #### U A #### [facility] ([id number]) [address], [address] [place] [address] BLOOD/HGB Negative Normal NEG [facility] Comment on above: Performed By: #### U A #### [facility] ([id number]) [address] [facility], [address] [place] [address] Color (U) YELLOW Normal YELLOW [facility] Comment on above: Performed By: #### U A #### [facility] ([id number]) [address] [place] [address], [address] [place] [address] Glucose Ql (U) Negative Normal NEG [facility] Comment on above: Performed By: #### U A #### [facility] ([id number]) [address] [place] [address], [address] [place] [address] Ketones Ql (U) Negative Normal NEG [facility] Comment on above: Performed By: #### U A #### [facility] ([id number]) [address] [place] [address], [address] [place] [address] Leukocyte esterase Test strip Ql (U) Small Abnormal NEG [facility] Comment on above: Performed By: #### U A #### [facility] ([id number]) [address] [place] [address], [address] [place] [address] MUCOUS PRESENT Abnormal NONE [facility] Comment on above: Performed By: #### U A #### [facility] ([id number]) [address] [facility], [address] [place] [address] Nitrite Ql (U) Negative Normal NEG [facility] Comment on above: Performed By: #### U A #### [facility] ([id number]) [address] [place] [address], [address] [place] [address] pH (U) 5.5 [pH] Normal 5.0-8.5 [facility] Comment on above: Performed By: #### U A #### [facility] ([id number]) [address] [place] [address], [address] [place] [address] Protein Ql (U) Trace Abnormal NEG [facility] Comment on above: Performed By: #### U A #### [facility] ([id number]) [address], [address] [place] [address] R.B.CELLS 1 /hpf Normal 0-5 [facility] Comment on above: Performed By: #### U A #### [facility] ([id number]) [address] [place] [address] [address] [place] [address] Specific gravity (U) [Rel density] 1.031 Normal 1.003-1.035 [facility] Comment on above: Performed By: #### U A #### [facility] ([id number]) [address] [facility] [address] [place] [address] SQUAMOUS EPITHELIUM 1 /hpf Normal 0-5 [facility] Comment on above: Performed By: #### U A #### [facility] ([id number]) [address] [place] [address] [address] [place] [address] TURBIDITY CLEAR Normal CLEAR [facility] Comment on above: Performed By: #### U A #### [facility] ([id number]) [address] [address] [place] [address] Urobilinogen (U) [Mass/Vol] mg/dL Normal <1.1 [facility] Comment on above: Performed By: #### U A #### [facility] ([id number]) [address] [place] [address] [address] [place] [address] W.B.CELLS 6 /hpf High 0-5 [facility] Comment on above: Performed By: #### U A #### [facility] ([id number]) [address] [facility] [address] [place] [address] URINE CULTUREon 05-03-2024 Bacteria identified Cx Nom (U) CULTURE RESULTS 50-100,000 ORGANISMS/ML NORMAL UROGENITAL SALO Normal [facility] Comment on above: Performed By: #### 6 30-4 #### [facility] ([id number]) [address] [facility] [address] [facility] [place] [address] Urinalysison 05-03-2024 Bilirubin Ql (U) Negative Negative^Ne ga tive [facility] Color (U) YELLOW YELLOW^YELLOW [facility] Epithelial cells Auto (Urine sed) [#/Area] 1 [facility] Glucose (U) [Mass/Vol] Negative Negative^Nega tive mg/dL [facility] Hemoglobin Auto test strip Ql (U) Negative Negative^Nega tive [facility] Interpretation and review of laboratory results Abnormal [facility] Ketones (U) [Mass/Vol] Negative Negative^Nega tive mg/dL [facility] Leukocyte esterase Auto test strip Ql (U) Small Abnormal Negative^Nega tive [facility] Mucus Ql (Urine sed) PRESENT Abnormal NONE^NONE [facility] Nitrite Auto test strip Ql (U) Negative Negative^Nega tive [facility] pH (U) 5.5 [pH] 5.0 - 8.5 [facility] Protein (U) [Mass/Vol] Trace Abnormal Negative^Nega tive mg/dL [facility] RBC Auto (Urine sed) [#/Area] 1 [facility] Specific gravity Refractometry automated (U) [Rel density] 1.031 1.003 - 1.035 [facility] Turbidity Ql (U) CLEAR CLEAR^CLEAR [facility] Urobilinogen Qn (U) NINF [facility] WBC Auto (Urine sed) [#/Area] 6 High [facility] aPTT Coag (PPP) [Time]on aPTT Coag (Bld) [Time] 32 s Normal 26-37 [facility] Comment on above: Performed By: #### C BCA, PINR, 22042-8, BMP #### [facility] ([id number]) [address] [facility] [address] [facility] [place] [address] XR Chest PA and Lateralon Todd Ingram M D - 04/12/2024 Clinical history: Preoperative evaluation. Comparisons: None Findings: 2 views of the chest obtained. Heart size and pulmonary vasculature appear within normal limits. Lungs appear clear. There is no pleural effusion nor pneumothorax. IMPRESSION: No evidence for acute cardiopulmonary disease. Finalized by Todd Ingram MD on 04/12/2024 3:19 PM [facility] Radiology Study observation (narrative) [facility] XR Chest PA and LateralOrder ed By: Todd Ingram on 04-12-2024 [facility] Work Phone: CT LUMBAR SPINE WO CONTon [...] French DO on 04/06/2024 8:08 PM Normal [facility] CBC AND AUTO DIFFon 03-13-20 ABSOLUTE BASOPHIL 0.0 X10E9/L Normal 0.0-0.[address] [facility] Comment on above: Performed By: #### C BCA, CMP, 82945-5, THYR, 75275-3 ####[facility] ([id number])[address], [place] [address] ABSOLUTE NEUTROPHIL 3.8 X10E9/L Normal 1.5-6.6 [facility] Comment on above: Performed By: #### C BCA, CMP, 48513-3, THYR, 01221-7 ####[facility] ([id number])[address] [address], [place] [address] Basophils/100 WBC (Bld) 0.5 % Normal [facility] Comment on above: Performed By: #### C BCA, CMP, 44625-1, THYR, 85940-5 ####[facility] ([id number])[address] [address], [place] [address] Eosinophils (Bld) [#/Vol] 0.3 10*3/uL Normal 0.0-0.4 [facility] Comment on above: Performed By: #### C BCA, CMP, 21514-6, THYR, 49185-8 ####[facility] ([id number])[address] [address] Eosinophils/100 WBC (Bld) 5.2 % Normal [facility] Comment on above: Performed By: #### C BCA, CMP, 34092-0, THYR, 37385-4 ####[facility] ([id number])[address] [address] [place] [address] Erythrocyte distribution width (RBC) [Ratio] 14.3 % Normal 11.5-15.0 [facility] Comment on above: Performed By: #### C BCA, CMP, 24790-0, THYR, 63561-5 ####[facility] ([id number])[address] [address], [place] [address] Hematocrit (Bld) [Volume fraction] 38.8 % Normal 35-47 [facility] Comment on above: Performed By: #### C BCA, CMP, 70740-8, THYR, 66352-0 ####[facility] ([id number])[address] [address], [place] [address] Hemoglobin (Bld) [Mass/Vol] 13.1 g/dL Normal 11.7-15.5 [facility] Comment on above: Performed By: #### C BCA, CMP, 95590-4, THYR, 26702-6 ####[facility] ([id number])[address] [address] Lymphocytes (Bld) [#/Vol] 1.7 10*3/uL Normal 1.0-3.5 [facility] Comment on above: Performed By: #### C BCA, CMP, 84418-3, THYR, 11671-3 ####[facility] ([id number])[address] [address], [place] [address] Lymphocytes/100 WBC (Bld) 26.8 % Normal [facility] Comment on above: Performed By: #### C BCA, CMP, 36082-7, THYR, 98254-0 ####[facility] ([id number])[address] [address], [place] [address] MCH (RBC) [Entitic mass] 33.5 pg Normal 27-34 [facility] Comment on above: Performed By: #### C BCA, CMP, 26638-5, THYR, 59167-0 ####[facility] ([id number])[address] [address], [place] [address] MCHC (RBC) [Mass/Vol] 33.8 g/dL Normal 32-36 [facility] Comment on above: Performed By: #### C BCA, CMP, 96968-6, THYR, 43232-3 ####[facility] ([id number])[address] [address] [place] [address] MCV (RBC) [Entitic vol] 99 fL Normal 80-100 [facility] Comment on above: Performed By: #### C BCA, CMP, 41772-7, THYR, 07018-6 ####[facility] ([id number])[address] [address] [place] [address] Monocytes (Bld) [#/Vol] 0.5 10*3/uL Normal 0-0.9 [facility] Comment on above: Performed By: #### C BCA, CMP, 46874-2, THYR, 42784-6 ####[facility] ([id number])[address] [address] [place] [address] Monocytes/100 WBC (Bld) 7.7 % Normal [facility] Comment on above: Performed By: #### C BCA, CMP, 89539-9, THYR, 42580-3 ####[facility] ([id number])[address] [address] Neutrophils/100 WBC (Bld) 59.8 % Normal [facility] Comment on above: Performed By: #### C BCA, CMP, 44021-6, THYR, 43486-3 ####[facility] ([id number])[address] [address] [place] [address], [place] [address] Platelet mean volume (Bld) [Entitic vol] 8.3 fL Normal 7-12 [facility] Comment on above: Performed By: #### C BCA, CMP, 75589-8, THYR, 64828-1 ####[facility] ([id number])[address] [address] [place] [address] Platelets (Bld) [#/Vol] 367 10*3/uL Normal 150-450 [facility] Comment on above: Performed By: #### C BCA, CMP, 61233-7, THYR, 57678-3 ####[facility] ([id number])[address], [address] [place] [address] RBC COUNT 3.92 X10E12/L Normal 3.80-5.20 [facility] Comment on above: Performed By: #### C BCA, CMP, 77300-6, THYR, 48316-7 ####[facility] ([id number])[address], [address] [place] [address] WBC (Bld) [#/Vol] 6.3 10*3/uL Normal 4.0-11.[address] [facility] Comment on above: Performed By: #### C BCA, CMP, 80684-8, THYR, 74664-3 ####[facility] ([id number])[address] [place] [address] COMPREHENSIVE METABOLIC PANE Lionel 03-13-2024 Albumin [Mass/Vol] 4.4 g/dL Normal 3.2-5.[address] [facility] Comment on above: Performed By: #### C BCA, CMP, 24206-7, THYR, 73884-6 ####[facility] ([id number])[address] [address] [place] [address] ALP [Catalytic activity/Vol] 67 U/L Normal 39-130 [facility] Comment on above: Performed By: #### C BCA, CMP, 10347-2, THYR, 83611-2 ####[facility] ([id number])[address] [address] [place] [address] ALT [Catalytic activity/Vol] 18 U/L Normal 0-31 [facility] Comment on above: Performed By: #### C BCA, CMP, 46109-0, THYR, 47219-6 ####[facility] ([id number])[address], [place] [address] Anion gap [Moles/Vol] 11 mmol/L Normal 5-15 [facility] Comment on above: Performed By: #### C BCA, CMP, 07991-2, THYR, 29039-1 ####[facility] ([id number])[address], [place] [address] AST [Catalytic activity/Vol] 16 U/L Normal 0-41 [facility] Comment on above: Performed By: #### C BCA, CMP, 93951-3, THYR, 21527-5 ####[facility] ([id number])[address], [place] [address] Bilirubin [Mass/Vol] 0.6 mg/dL Normal 0.3-1.2 [facility] Comment on above: Performed By: #### C BCA, CMP, 96862-8, THYR, 87267-0 ####[facility] ([id number])[address], [place] [address] Calcium [Mass/Vol] 9.7 mg/dL Normal 8.5-10.[address] [facility] Comment on above: Performed By: #### C BCA, CMP, 41669-9, THYR, 59957-8 ####[facility] ([id number])[address], [place] [address] Chloride [Moles/Vol] 102 mmol/L Normal 98-109 [facility] Comment on above: Performed By: #### C BCA, CMP, 29731-1, THYR, 46776-8 ####[facility] ([id number])[address], [place] [address] CO2 [Moles/Vol] 26 mmol/L Normal 22-32 [facility] Comment on above: Performed By: #### C BCA, CMP, 58028-5, THYR, 89290-7 ####[facility] ([id number])[address] [address], [place] [address] Creatinine [Mass/Vol] 0.81 mg/dL Normal 0.40-1.00 [facility] Comment on above: Result Comment: METH OD TRACEABLE TO IDMS STANDARD Performed By: #### C BCA, CMP, 10365-4, THYR, 38709-9 ####[facility] ([id number])[address] [address], [place] [address] GFR/1.73 sq M.predicted among non-blacks MDRD (S/P/Bld) [Vol rate/Area] 84 mL/min/{1.73_m2} Normal >59 [facility] Comment on above: Result Comment: Reported eGFR is based on the CKD-EPI 2020 equation that does not use a race coefficient. Performed By: #### C BCA, CMP, 27906-5, THYR, 47056-5 ####[facility] ([id number])[address] [address], [place] [address] Glucose [Mass/Vol] 119 mg/dL High 65-[address] [facility] Comment on above: Performed By: #### C BCA, CMP, 63984-1, THYR, 05433-8 ####[facility] ([id number])[address] [address], [place] [address] Potassium [Moles/Vol] 4.2 mmol/L Normal 3.5-5.0 [facility] Comment on above: Performed By: #### C BCA, CMP, 97467-2, THYR, 36625-2 ####[facility] ([id number])[address] [address] [place] [address] Protein [Mass/Vol] 7.4 g/dL Normal 6.0-8.[address] [facility] Comment on above: Performed By: #### C BCA, CMP, 86667-6, THYR, 33622-0 ####[facility] ([id number])[address] [place] [address] Sodium [Moles/Vol] 139 mmol/L Normal 134-[address] [facility] Comment on above: Performed By: #### C BCA, CMP, 60772-6, THYR, 88538-1 ####[facility] ([id number])[address] [place] [address] Urea nitrogen [Mass/Vol] 15 mg/dL Normal 5-23 [facility] Comment on above: Performed By: #### C BCA, CMP, 32708-9, THYR, 17430-2 ####[facility] ([id number])[address] [place] [address] Lipid 1996 panelon 4 Cholesterol [Mass/Vol] 157 mg/dL Normal 150-200 [facility] Comment on above: Performed By: #### Juanis BCA, CMP, 94237-9, THYR, 15718-0 ####[facility] ([id number])[address] [place] [address] Cholesterol in HDL [Mass/Vol] 54 mg/dL Normal >39 [facility] Comment on above: Result Comment: HDL <40 mg/dL - High Risk HDL > or = 40mg/dL- Desirable HDL >60 mg/dL - Negative Risk Performed By: #### C BCA, CMP, 84704-2, THYR, 76947-7 ####[facility] ([id number])[address] [address] [place] [address] 31209 Cholesterol in LDL [Mass/Vol] 87 mg/dL Normal <130 [facility] Comment on above: Result Comment: LDL <100 mg/dL - Desirable LDL >160 mg/dL - High Risk Performed By: #### C BCA, CMP, 21375-4, THYR, 61894-9 ####[facility] ([id number])[address] [address] [place] [address]70 Cholesterol in VLDL [Mass/Vol] 16 mg/dL Normal 0-30 [facility] Comment on above: Performed By: #### C BCA, CMP, 56594-1, THYR, 50153-6 ####[facility] ([id number])[address] [address], [place] [address] CHOLESTEROL:HDL 2.9 Normal 1.0-5.0 [facility] Comment on above: Performed By: #### C BCA, CMP, 18898-7, THYR, 62817-6 ####[facility] ([id number])[address] [address], [place] [address] Triglyceride [Mass/Vol] 78 mg/dL Normal 27-150 [facility] Comment on above: Performed By: #### C BCA, CMP, 37797-1, THYR, 33369-0 ####[facility] ([id number])[address] [address], [place] [address] THYROID PROFILEon 03-13-2024 Free T4 [Mass/Vol] 0.84 ng/dL Normal 0.61-1.[address] [facility] Comment on above: Performed By: #### C BCA, CMP, 89514-3, THYR, 83755-6 ####[facility] ([id number])[address] [address], [place] [address] TSH 1.26 uIU/mL Normal 0.49-4.67 [facility] Comment on above: Performed By: #### C BCA, CMP, 29601-4, THYR, 81335-8 ####[facility] ([id number])[address], [place] [address] Vitamin D+Metabolites [Mass/ Vol]on 03-13-2024 VITAMIN D 25 HYD TOT 31.7 ng/mL Normal 30-100 [facility] Comment on above: Result Comment: Vitamin D status 25 [place] Vitamin D Deficiency <20 ng/mL Insufficiency 20-29 ng/mL Sufficiency 30-100 ng/mL Toxicity >100 ng/mL NOTE: A pediatric reference range has not been established by the wallpaper remover steam of this kit. The [place] [employer] recommends a Vitamin D level of = or >20ng/mL in infants and children. Performed By: #### C DAVID, [facility], 12181-1, THYR, 25981-8 ####[facility] ([id number])[address] [address], [place] [address] BASIC METABOLIC PANLon 02-14 Anion gap [Moles/Vol] 11 mmol/L Normal 5-15 [facility] Comment on above: Performed By: #### Juanis HERNANDEZ, BMP ####[facility] ([id number])[address] [address], [place] [address] Calcium [Mass/Vol] 9.1 mg/dL Normal 8.5-10.[address] [facility] Comment on above: Performed By: #### Juanis BCA, BMP ####[facility] ([id number])[address], [place] [address] Chloride [Moles/Vol] 106 mmol/L Normal 98-109 [facility] Comment on above: Performed By: #### Juanis BCA, BMP ####[facility] ([id number])[address], [address], [place] [address] CO2 [Moles/Vol] 23 mmol/L Normal 22-32 [facility] Comment on above: Performed By: #### C BCA, BMP ####[facility] ([id number])[address] [address] Creatinine [Mass/Vol] 0.76 mg/dL Normal 0.40-1.00 [facility] Comment on above: Result Comment: METH OD TRACEABLE TO IDMS STANDARD Performed By: #### C BCA, BMP ####[facility] ([id number])[address] [address] eGFR (CKD-EPI) NON-RACE DEPENDENT >90 Normal >59 [facility] Comment on above: Result Comment: Reported eGFR is based on the CKD-EPI 2020 equation that does not use a race coefficient. Performed By: #### C BCA, BMP ####[facility] ([id number])[address] [address] Glucose [Mass/Vol] 118 mg/dL High 65-[address] [facility] Comment on above: Performed By: #### C BCA, BMP ####[facility] ([id number])[address] [address] Potassium [Moles/Vol] 4.0 mmol/L Normal 3.5-5.0 [facility] Comment on above: Performed By: #### C BCA, BMP ####[facility] ([id number])[address] [address] Sodium [Moles/Vol] 140 mmol/L Normal 134-[address] [facility] Comment on above: Performed By: #### C BCA, BMP ####[facility] ([id number])[address] [address] Urea nitrogen [Mass/Vol] 17 mg/dL Normal 5-23 [facility] Comment on above: Performed By: #### C BCA, BMP ####[facility] ([id number])[address], [place] [address] Basic Metabolic Panelon 01-23 Anion gap [Moles/Vol] 11 mmol/L 5 - 15 mmol/L [facility] Calcium [Mass/Vol] 9.1 mg/dL 8.5 - 10. 5 mg/dL [facility] Chloride [Moles/Vol] 106 mmol/L 98 - 109 mmol/L [facility] CO2 [Moles/Vol] 23 mmol/L 22 - 32 mmol/L [facility] Creatinine [Mass/Vol] 0.76 mg/dL 0.40 - 1.00 mg/dL [facility] Comment on above: METHOD TRACEABLE TO IDIL STANDARD eGFR (CKD-EPI)non-race dependent - PINF [facility] Comment on above: Reported eGFR is based on the CKD-EPI 2020 equation that does not use a race coefficient. Glucose [Mass/Vol] 118 mg/dL High 65 - 99 mg/dL [facility] Interpretation and review of laboratory results Abnormal [facility] Potassium [Moles/Vol] 4.0 mmol/L 3.5 - 5.0 mmol/L [facility] Sodium [Moles/Vol] 140 mmol/L 134 - 146 mmol/L [facility] Urea nitrogen [Mass/Vol] 17 mg/dL 5 - 23 mg/dL [facility] CBC AND AUTO DIFFon 02-15-20 ABSOLUTE BASOPHIL 0.1 X10E9/L Normal 0.0-0.[address] [facility] Comment on above: Performed By: #### C BCA, BMP ####[facility] ([id number])[address], [place] [address] ABSOLUTE NEUTROPHIL 3.2 X10E9/L Normal 1.5-6.6 [facility] Comment on above: Performed By: #### C BCA, BMP ####[facility] ([id number])[address], [address], [place] [address] Basophils/100 WBC (Bld) 1.0 % Normal [facility] Comment on above: Performed By: #### C DAVID, BMP ####[facility] ([id number])[address] [address] Eosinophils (Bld) [#/Vol] 0.4 10*3/uL Normal 0.0-0.4 [facility] Comment on above: Performed By: #### C DAVID, BMP ####[facility] ([id number])[address] [address] Eosinophils/100 WBC (Bld) 7.9 % Normal [facility] Comment on above: Performed By: #### C DAVID, BMP ####[facility] ([id number])[address] [address] Erythrocyte distribution width (RBC) [Ratio] 13.8 % Normal 11.5-15.0 [facility] Comment on above: Performed By: #### C DAVID, BMP ####[facility] ([id number])[address] [address] Hematocrit (Bld) [Volume fraction] 38.3 % Normal 35-47 [facility] Comment on above: Performed By: #### C DAVID, BMP ####[facility] ([id number])[address] [address] Hemoglobin (Bld) [Mass/Vol] 13.1 g/dL Normal 11.7-15.5 [facility] Comment on above: Performed By: #### C DAVID, BMP ####[facility] ([id number])[address] [address] Lymphocytes (Bld) [#/Vol] 1.4 10*3/uL Normal 1.0-3.5 [facility] Comment on above: Performed By: #### C DAVID, BMP ####[facility] ([id number])[address], [place] [address] Lymphocytes/100 WBC (Bld) 25.7 % Normal [facility] Comment on above: Performed By: #### Juanis HERNANDEZ, BMP ####[facility] ([id number])[address], [place] [address] MCH (RBC) [Entitic mass] 33.6 pg Normal 27-34 [facility] Comment on above: Performed By: #### C DAVID, BMP ####[facility] ([id number])[address], [address], [place] [address] MCHC (RBC) [Mass/Vol] 34.1 g/dL Normal 32-36 [facility] Comment on above: Performed By: #### C DAVID, BMP ####[facility] ([id number])[address], [address], [place] [address] MCV (RBC) [Entitic vol] 99 fL Normal 80-100 [facility] Comment on above: Performed By: #### Juanis HERNANDEZ, BMP ####[facility] ([id number])[address] [address] [place] [address] Monocytes (Bld) [#/Vol] 0.4 10*3/uL Normal 0-0.9 [facility] Comment on above: Performed By: #### Juanis HERNANDEZ, BMP ####[facility] ([id number])[address] [address] [place] [address] Monocytes/100 WBC (Bld) 6.8 % Normal [facility] Comment on above: Performed By: #### C DAVID, BMP ####[facility] ([id number])[address] [address] [place] [address] Neutrophils/100 WBC (Bld) 58.6 % Normal [facility] Comment on above: Performed By: #### Juanis HERNANDEZ, BMP ####[facility] ([id number])[address] [address] [place] [address] Platelet mean volume (Bld) [Entitic vol] 8.6 fL Normal 7-12 [facility] Comment on above: Performed By: #### Juanis HERNANDEZ, BMP ####[facility] ([id number])[address] [address] Platelets (Bld) [#/Vol] 404 10*3/uL Normal 150-450 [facility] Comment on above: Performed By: #### Juanis HERNANDEZ, BMP ####[facility] ([id number])[address] [address] RBC COUNT 3.88 X10E12/L Normal 3.80-5.20 [facility] Comment on above: Performed By: #### Juanis HERNANDEZ, BMP ####[facility] ([id number])[address] [address] WBC (Bld) [#/Vol] 5.6 10*3/uL Normal 4.0-11.[address] [facility] Comment on above: Performed By: #### Juanis HERNANDEZ, BMP ####[facility] ([id number])[address] [address] CBC auto differentialon 01-23 Basophils (Bld) [#/Vol] 0.1 10*3/uL [facility] Basophils/100 WBC (Bld) 1.0 % [facility] Eosinophils (Bld) [#/Vol] 0.4 10*3/uL [facility] Eosinophils/100 WBC (Bld) 7.9 % [facility] Erythrocyte distribution width (RBC) [Ratio] 13.8 % 11.5 - 15.0 % [facility] Hematocrit (Bld) [Volume fraction] 38.3 % 35 - 47 % [facility] Hemoglobin (Bld) [Mass/Vol] 13.1 g/dL 11.7 - 15.5 g/dL [facility] Lymphocytes (Bld) [#/Vol] 1.4 10*3/uL [facility] Lymphocytes/100 WBC (Bld) 25.7 % [facility] MCH (RBC) [Entitic mass] 33.6 pg 27 - 34 pg [facility] MCHC (RBC) [Mass/Vol] 34.1 g/dL 32 - 36 g/dL [facility] MCV (RBC) [Entitic vol] 99 fL 80 - 100 fL [facility] Monocytes (Bld) [#/Vol] 0.4 10*3/uL [facility] Monocytes/100 WBC (Bld) 6.8 % [facility] Neutrophils (Bld) [#/Vol] 3.2 10*3/uL [facility] Neutrophils/100 WBC (Bld) 58.6 % [facility] Platelet mean volume (Bld) [Entitic vol] 8.6 fL 7 - 12 fL [facility] Platelets (Bld) [#/Vol] 404 10*3/uL [facility] RBC (Bld) [#/Vol] 3.88 10*6/uL [facility] WBC corrected for nucl RBC Auto (Bld) [#/Vol] 5.6 [facility] CT ABDOMEN AND PELVIS WO CON Ton [...] Jacobsen MD on 02/15/2024 11:00 AM Normal [facility] CT Abdomen and Pelvis WO con [...] Krystle Jacobsen MD on 02/15/2024 11:00 AM [facility] Krystle Jacobsen M D - 02/15/2024 CLINICAL [...] Krystle Jacobsen MD on 02/15/2024 11:00 AM [facility] Radiology Study observation (narrative) [facility] CT Abdomen and Pelvis WO con trastOrdered By: Krystle Jacobsen on 02-15-2024 [facility] Work Phone: URINALYSISon 02-15-2024 Bilirubin Ql (U) Negative Normal NEG [facility] Comment on above: Performed By: #### U A ####[facility] ([id number])[address], [address] [place] [address] BLOOD/HGB Negative Normal NEG [facility] Comment on above: Performed By: #### U A ####[facility] ([id number])[address], [address] [place] [address] Color (U) YELLOW Normal YELLOW [facility] Comment on above: Performed By: #### U A ####[facility] ([id number])[address], [address] [place] [address] Glucose Ql (U) Negative Normal NEG [facility] Comment on above: Performed By: #### U A ####[facility] ([id number])[address], [address] [place] [address] Hyaline casts LM Ql (Urine sed) 4 /lpf High 0-2 [facility] Comment on above: Performed By: #### U A ####[facility] ([id number])[address], [address] [place] [address] Ketones Ql (U) Negative Normal NEG [facility] Comment on above: Performed By: #### U A ####[facility] ([id number])[address], [address] [place] [address] Leukocyte esterase Test strip Ql (U) Trace Abnormal NEG [facility] Comment on above: Performed By: #### U A ####[facility] ([id number])[address], [address] [place] [address] MUCOUS PRESENT Abnormal NONE [facility] Comment on above: Performed By: #### U A ####[facility] ([id number])[address] [address] [place] [address] Nitrite Ql (U) Negative Normal NEG [facility] Comment on above: Performed By: #### U A ####[facility] ([id number])[address] [facility] [address] [place] [address] pH (U) 5.5 [pH] Normal 5.0-8.5 [facility] Comment on above: Performed By: #### U A ####[facility] ([id number])[address] [address] [place] [address] Protein Ql (U) Trace Abnormal NEG [facility] Comment on above: Performed By: #### U A ####[facility] ([id number])[address] [address] [place] [address] R.B.CELLS 0 /hpf Normal 0-5 [facility] Comment on above: Performed By: #### U A ####[facility] ([id number])[address] [address] RENAL EPITHELIUM <1 High 0 [facility] Comment on above: Performed By: #### U A ####[facility] ([id number])[address] [address] [place] [address] Specific gravity (U) [Rel density] 1.024 Normal 1.003-1.035 [facility] Comment on above: Performed By: #### U A ####[facility] ([id number])[address] [address] [place] [address] SQUAMOUS EPITHELIUM <1 Normal 0-5 [facility] Comment on above: Performed By: #### U A ####[facility] ([id number])[address], [address] [address] TRANSITIONAL EPITH <1 High [address] [facility] Comment on above: Performed By: #### U A ####[facility] ([id number])[address] [address] TURBIDITY CLEAR Normal CLEAR [facility] Comment on above: Performed By: #### U A ####[facility] ([id number])[address] [address] Urobilinogen (U) [Mass/Vol] mg/dL Normal <1.1 [facility] Comment on above: Performed By: #### U A ####[facility] ([id number])[address] [address] W.B.CELLS 5 /hpf Normal 0-5 [facility] Comment on above: Performed By: #### U A ####[facility] ([id number])[address] [address] Urinalysison 02-15-2024 Bilirubin Ql (U) Negative Negative^Ne ga tive [facility] Color (U) YELLOW YELLOW^YELLOW [facility] Epithelial cells Auto (Urine sed) [#/Area] [facility] Epithelial cells.non-squamous LM.LPF (Urine sed) [#/Area] High 0 /hpf [facility] Epithelial cells.renal LM.HPF (Urine sed) [#/Area] High 0 /hpf [facility] Glucose (U) [Mass/Vol] Negative Negative^Nega tive mg/dL [facility] Hemoglobin Auto test strip Ql (U) Negative Negative^Nega tive [facility] Hyaline casts (Urine sed) [#/Area] 4 /[LPF] High [facility] Interpretation and review of laboratory results Abnormal [facility] Ketones (U) [Mass/Vol] Negative Negative^Nega tive mg/dL [facility] Leukocyte esterase Auto test strip Ql (U) Trace Abnormal Negative^Nega tive [facility] Mucus Ql (Urine sed) PRESENT Abnormal NONE^NONE [facility] Nitrite Auto test strip Ql (U) Negative Negative^Nega tive [facility] pH (U) 5.5 [pH] 5.0 - 8.5 [facility] Protein (U) [Mass/Vol] Trace Abnormal Negative^Nega tive mg/dL [facility] RBC Auto (Urine sed) [#/Area] 0 [facility] Specific gravity Refractometry automated (U) [Rel density] 1.024 1.003 - 1.035 [facility] Turbidity Ql (U) CLEAR CLEAR^CLEAR [facility] [place] Urobilinogen Qn (U) NINF [facility] WBC Auto (Urine sed) [#/Area] 5 [facility] BASIC METABOLIC PANLon 01-30 Anion gap [Moles/Vol] 7 mmol/L Normal 5-15 [facility] Comment on above: Performed By: #### B MP, CBC, 88027-2, 2777 #### [facility] ([id number]) [address] [place] [address] Calcium [Mass/Vol] 8.3 mg/dL Low 8.5-10.[address] [facility] Comment on above: Performed By: #### B MP, CBC, 60859-0, 2777-1 #### [facility] ([id number]) [address] [place] [address] Chloride [Moles/Vol] 101 mmol/L Normal 98-109 [facility] Comment on above: Performed By: #### B ESTEBAN, CBC, , 2776-07 #### [facility] ([id number]) [address] [place] [address] CO2 [Moles/Vol] 27 mmol/L Normal 22-32 [facility] Comment on above: Performed By: #### B ESTEBAN, CBC, , 2776-07 #### [facility] ([id number]) [address] [place] [address] Creatinine [Mass/Vol] 0.68 mg/dL Normal 0.40-1.00 [facility] Comment on above: Result Comment: METH OD TRACEABLE TO IDMS STANDARD Performed By: #### B ESTEBAN, CBC, , 2776-07 #### [facility] ([id number]) [address] [place] [address] eGFR (CKD-EPI) NON-RACE DEPENDENT >90 Normal >59 [facility] Comment on above: Result Comment: Reported eGFR is based on the CKD-EPI 2020 equation that does not use a race coefficient. Performed By: #### B ESTEBAN, CBC, , 2776-07 #### [facility] ([id number]) [address] [place] [address] Glucose [Mass/Vol] 112 mg/dL High 65-[address] [facility] Comment on above: Performed By: #### B ESTEBAN, CBC, , 2776-07 #### [facility] ([id number]) [address] [place] [address] Potassium [Moles/Vol] 4.1 mmol/L Normal 3.5-5.0 [facility] Comment on above: Performed By: #### B ESTEBAN, CBC, , 2776-07 #### [facility] ([id number]) [address] [place] [address] Sodium [Moles/Vol] 135 mmol/L Normal 134-[address] [facility] Comment on above: Performed By: #### B MP, CBC, 2776-07 #### [facility] ([id number]) [address] [place] [address] Urea nitrogen [Mass/Vol] 12 mg/dL Normal 5-23 [facility] Comment on above: Performed By: #### B MP, CBC, 2776-07 #### [facility] ([id number]) [address] [place] [address] COMPLETE BLOOD COUNTon 01-30 Erythrocyte distribution width (RBC) [Ratio] 13.9 % Normal 11.5-15.0 [facility] Comment on above: Performed By: #### B MP, CBC, 2776-07 #### [facility] ([id number]) [address] [place] [address] Hematocrit (Bld) [Volume fraction] 34.7 % Low 35-47 [facility] Comment on above: Performed By: #### B MP, CBC, 2776-07 #### [facility] ([id number]) [address] [place] [address] Hemoglobin (Bld) [Mass/Vol] 11.8 g/dL Normal 11.7-15.5 [facility] Comment on above: Performed By: #### B MP, CBC, 2776-07 #### [facility] ([id number]) [address] [place] [address] MCH (RBC) [Entitic mass] 33.3 pg Normal 27-34 [facility] Comment on above: Performed By: #### B MP, CBC, 2776-07 #### [facility] ([id number]) [address] [place] [address] MCHC (RBC) [Mass/Vol] 33.9 g/dL Normal 32-36 [facility] Comment on above: Performed By: #### B MP, CBC, , 2776-07 #### [facility] ([id number]) [address] [place] [address] MCV (RBC) [Entitic vol] 98 fL Normal 80-100 [facility] Comment on above: Performed By: #### B MP, CBC, , 2776-07 #### [facility] ([id number]) [address] [place] [address] Platelet mean volume (Bld) [Entitic vol] 7.9 fL Normal 7-12 [facility] Comment on above: Performed By: #### B MP, CBC, , 2776-07 #### [facility] ([id number]) [address] [place] [address] Platelets (Bld) [#/Vol] 336 10*3/uL Normal 150-450 [facility] Comment on above: Performed By: #### B MP, CBC, , 2776-07 #### [facility] ([id number]) [address] [place] [address] RBC COUNT 3.53 X10E12/L Low 3.80-5.20 [facility] Comment on above: Performed By: #### B MP, CBC, , 2776-07 #### [facility] ([id number]) [address] [place] [address]61 WBC (Bld) [#/Vol] 10.4 10*3/uL Normal 4.0-11.0 [facility] Comment on above: Performed By: #### B MP, CBC, , 2777-1 #### [facility] ([id number]) [address] [place] [address] MAGNESIUMon 01-31-2024 Magnesium [Mass/Vol] 2.0 mg/dL Normal 1.8-2.6 [facility] Comment on above: Performed By: #### B MP, CBC, 84731-3, 2777-1 #### [facility] ([id number]) [address] [place] [address] PHOSPHORUSon 01-31-2024 Phosphate [Mass/Vol] 3.7 mg/dL Normal 2.4-4.9 [facility] Comment on above: Performed By: #### B MP, CBC, 91417-0, 2777-1 #### [facility] ([id number]) [address] [place] [address] Surgical Pathologyon 024 Surgical Pathology Normal [facility] Comment on above: Result Comment: [facility] in Laboratory Medicine [address] [place] [address] Surgical Pathology Consultation Patient Name:MAR ADAME:1965 (Age: 59)Gender:FTaken:4Reported:4Physician(s):Mickey Nick MD ([phone])Copy To: Rec. #:[id number]: #[id number] Final Pathologic Diagnosis Sigmoid colon, segmental resection: Diverticular disease with multiple diverticula and chronic diverticulitis, accompanied by submucosal fibrosis and hypertrophy of muscularis propria. No evidence of perforation or active diverticulitis. No malignancy or dysplasia identified. Report Electronically Signed Out ao/4Aamara Medina MD [place] [address], License number: [id number]. Clinical History Diverticulitis. Gross Description Received in [...] closest staple margin, en face C-E diverticula (5,ss,[id number], m2) /01/31/2024[facility] Specimen(s) Received Sigmoid colon Fee Codes(s): 1; 43516 BASIC METABOLIC PANLon 01-12 Anion gap [Moles/Vol] 10 mmol/L Normal 5-15 [facility] Comment on above: Performed By: #### C BCA, BMP #### [facility] ([id number]) [address], [address] [place] [address] Calcium [Mass/Vol] 9.7 mg/dL Normal 8.5-10.[address] [facility] Comment on above: Performed By: #### C BCA, BMP #### [facility] ([id number]) [address], [address] [place] [address] Chloride [Moles/Vol] 102 mmol/L Normal 98-109 [facility] Comment on above: Performed By: #### C BCA, BMP #### [facility] ([id number]) [address], [address] [place] [address] CO2 [Moles/Vol] 26 mmol/L Normal 22-32 [facility] Comment on above: Performed By: #### C BCA, BMP #### [facility] ([id number]) [address], [address] [place] [address] Creatinine [Mass/Vol] 0.82 mg/dL Normal 0.40-1.00 [facility] Comment on above: Result Comment: METH OD TRACEABLE TO IDMS STANDARD Performed By: #### C BCA, BMP #### [facility] ([id number]) [address], [address] [place] [address] GFR/1.73 sq M.predicted among non-blacks MDRD (S/P/Bld) [Vol rate/Area] 83 mL/min/{1.73_m2} Normal >59 [facility] Comment on above: Result Comment: Reported eGFR is based on the CKD-EPI 2020 equation that does not use a race coefficient. Performed By: #### C BCA, BMP #### [facility] ([id number]) [address], [address] [place] [address] Glucose [Mass/Vol] 106 mg/dL High 65-[address] [facility] Comment on above: Performed By: #### C BCA, BMP #### [facility] ([id number]) [address], [address] [place] [address] Potassium [Moles/Vol] 3.9 mmol/L Normal 3.5-5.0 [facility] Comment on above: Performed By: #### C BCA, BMP #### [facility] ([id number]) [address], [address] [place] [address] Sodium [Moles/Vol] 138 mmol/L Normal 134-[address] [facility] Comment on above: Performed By: #### C BCA, BMP #### [facility] ([id number]) [address], [address] [place] [address] Urea nitrogen [Mass/Vol] 16 mg/dL Normal 5-23 [facility] Comment on above: Performed By: #### C BCA, BMP #### [facility] ([id number]) [address], [address] [place] [address] CBC AND AUTO DIFFon 01-13-20 24 ABSOLUTE BASOPHIL 0.1 X10E9/L Normal 0.0-0.[address] [facility] Comment on above: Performed By: #### C DAVID, BMP #### [facility] ([id number]) [address], [address] [place] [address] ABSOLUTE NEUTROPHIL 3.4 X10E9/L Normal 1.5-6.6 [facility] Comment on above: Performed By: #### C DAVID, BMP #### [facility] ([id number]) [address], [address] [place] [address] Basophils/100 WBC (Bld) 1.3 % Normal [facility] Comment on above: Performed By: #### Juanis HERNANDEZ, BMP #### [facility] ([id number]) [address], [address] [place] [address] Eosinophils (Bld) [#/Vol] 0.2 10*3/uL Normal 0.0-0.4 [facility] Comment on above: Performed By: #### Juanis HERNANDEZ, BMP #### [facility] ([id number]) [address], [address] [place] [address] Eosinophils/100 WBC (Bld) 3.6 % Normal [facility] Comment on above: Performed By: #### Juanis HERNANDEZ, BMP #### [facility] ([id number]) [address], [address] [place] [address] Erythrocyte distribution width (RBC) [Ratio] 13.6 % Normal 11.5-15.0 [facility] Comment on above: Performed By: #### Juanis HERNANDEZ, BMP #### [facility] ([id number]) [address], [address] [place] [address] Hematocrit (Bld) [Volume fraction] 39.1 % Normal 35-47 [facility] Comment on above: Performed By: #### C BCA, BMP #### [facility] ([id number]) [address], [address] [place] [address] Hemoglobin (Bld) [Mass/Vol] 13.6 g/dL Normal 11.7-15.5 [facility] Comment on above: Performed By: #### C BCA, BMP #### [facility] ([id number]) [address], [address] [place] [address] Lymphocytes (Bld) [#/Vol] 1.4 10*3/uL Normal 1.0-3.5 [facility] Comment on above: Performed By: #### C DAVID, BMP #### [facility] ([id number]) [address] [place] [address] Lymphocytes/100 WBC (Bld) 25.8 % Normal [facility] Comment on above: Performed By: #### C BCA, BMP #### [facility] ([id number]) [address], [address] [place] [address] MCH (RBC) [Entitic mass] 33.6 pg Normal 27-34 [facility] Comment on above: Performed By: #### C BCA, BMP #### [facility] ([id number]) [address] [place] [address] MCHC (RBC) [Mass/Vol] 34.7 g/dL Normal 32-36 [facility] Comment on above: Performed By: #### C BCA, BMP #### [facility] ([id number]) [address], [address] [place] [address] MCV (RBC) [Entitic vol] 97 fL Normal 80-100 [facility] Comment on above: Performed By: #### C BCA, BMP #### [facility] ([id number]) [address], [address] [place] [address] Monocytes (Bld) [#/Vol] 0.4 10*3/uL Normal 0-0.9 [facility] Comment on above: Performed By: #### C DAVID, BMP #### [facility] ([id number]) [address], [address] [place] [address] Monocytes/100 WBC (Bld) 7.8 % Normal [facility] Comment on above: Performed By: #### C DAVID, BMP #### [facility] ([id number]) [address], [address] [place] [address] Neutrophils/100 WBC (Bld) 61.5 % Normal [facility] Comment on above: Performed By: #### Juanis HERNANDEZ, BMP #### [facility] ([id number]) [address], [address] [place] [address] Platelet mean volume (Bld) [Entitic vol] 8.6 fL Normal 7-12 [facility] Comment on above: Performed By: #### C DAVID, BMP #### [facility] ([id number]) [address], [address] [place] [address] Platelets (Bld) [#/Vol] 330 10*3/uL Normal 150-450 [facility] Comment on above: Performed By: #### Juanis HERNANDEZ, BMP #### [facility] ([id number]) [address], [address] [place] [address] RBC COUNT 4.04 X10E12/L Normal 3.80-5.20 [facility] Comment on above: Performed By: #### C DAVID, BMP #### [facility] ([id number]) [address] [address] [place] [address] WBC (Bld) [#/Vol] 5.5 10*3/uL Normal 4.0-11.[address] [facility] Comment on above: Performed By: #### C BCA, BMP #### [facility] ([id number]) [address] [place] [address] MR LUMBAR SPINE WO CONTon MR LUMBAR [...] Galeas MD on 12/12/2023 1:42 PM Normal [facility] XR PELVIS 1 OR 2 [facility] 11-25 XR PELVIS 1 OR 2 VWS [...] Antony MD on 11/26/2023 8:51 AM Normal [facility] XR SPINE LUMBAR 2 OR 3 VWSon 11-26-2023 XR SPINE LUMBAR 2 OR 3 [...] Antony MD on 11/26/2023 8:51 AM Normal [facility] COVID/FLU/RSV RT-PCRon 09-09 SARS-CoV-2 (COVID-19) RNA NAVEEN+probe Ql (Unsp spec) Negative [facility] [employer] Other COVID/FLU/RSV RT-PCR Negative [facility] [employer] Other VITAMIN D 25 OHon 06-22-2022 VIT D 25-OH 37.8 ng/mL Normal [facility] Comment on above: Performed By: #### V ITAD #### [facility] [address] [place] [address] Dr. Vasquez Phillips VIT D RANGES SEE BELOW Normal [facility] Comment on above: Result Comment: <20 ng/mL Vit D deficient 20 - <30 ng/mL Vit D insufficient 30 - 100 ng/mL Vit D sufficient >100 ng/mL Potential Toxicity Performed By: #### V ITAD #### [facility] [address] [address] [address] Vasquez Phillips MG MAMM SCREEN 3D NORM CADon 12-15-2021 MG MAMM SCREEN 3D NORM CAD Patient: MAR ADAME Exam Date: 12/15/2021 : 1965 Gender:F Ordering : PHILIP PARKER Admission #: [id number] Family : Order #: [id number] CLICK HERE TO VIEW EXAM RADIOLOGY REPORT [...] Treatments None Family Cancers None LOCATION: [facility] BREAST COMPOSITION: Scattered areas fibroglandular density. [...] Baez M.D. on 12/16/2021 at 08:11 Normal [facility] IMAGE-GUIDED PAP W/AGE BASED SCR PROTOCOLSon 07-14-2021 COMMENT Normal [facility] Comment on above: Order Comment: SPLIT 07/09/2021 FROM [id number] Result Comment: This order for age-based cervical cancer and STI screening follows ACOG guidelines(PB 168, 140, DPO485). See individual assays for performing site location. Performed By: #### 9 7473, 89345 #### [facility] [address] [employer] Ironworker: Beka Chicas MD Result Comment: EXPL ANATORY [...] Comment: None given Performed By: #### 9 7801, 41953 #### [facility] [address] [employer]worker: Beka Chicas MD COMMENT: Normal [facility] Comment on above: Result Comment: This case could not be evaluated with computer assisted technology. The slide was manually screened according to routine procedures. Performed By: #### 9 9506, 97311 #### [facility]-[address], [address] [place] [address] [employer]worker: Beka Chicas MD MANAGER LAUNDRY: Normal [facility] Comment on above: Result Comment: JOVANNY SANCHEZ(ASCP) CT screening location: [place] [address]. Performed By: #### 9 3951, 90758 #### [facility] [address] [employer]worker: Beka Chicas MD HPV mRNA E6/E7 Not detected Normal Not Detected [facility] Comment on above: Result Comment: Meth odology: Hunter-Mediated Amplification This assay detects E6/E7 viral messenger RNA (mRNA) from 14 high-risk HPV types (16,18,31,33,35,39,45,51,52,56,58,59,66,68). The analytical performance characteristics of this assay have been determined by [employer]. The modifications have not been cleared or approved by the FDA. This assay has been validated pursuant to the CLIA regulations and is used for clinical purposes. For additional information, please refer to http://education.RCD [employer]/faq/KFB663s1 (This link if provided for information/ educational purposes only.) Performed By: #### 9 1931, 80513 #### [facility] [address] [employer]: Beka Chicas MD INTERPRETATION/RESU LT: Normal [facility] Comment on above: Result Comment: Nega tive for intraepithelial lesion or malignancy. Performed By: #### 9 1410, 17194 #### [facility] [address] [employer]worker: Beka Chicas MD LMP: Normal [facility] Comment on above: Result Comment: NONE GIVEN Performed By: #### 9 5489, 09135 #### [facility] [address] [employer]worker: Beka Chicas MD PREV. BX: Normal [facility] Comment on above: Result Comment: NONE GIVEN Performed By: #### 9 1414, 07826 #### [facility], [address] [place] [address] [employer]worker: Beka Chicas MD PREV. PAP: Normal [facility] Comment on above: Result Comment: NONE GIVEN Performed By: #### 9 1414, 92028 #### [facility], [address] [place] [address] [employer]worker: Beka Chicas MD SOURCE: Normal [facility] Comment on above: Result Comment: Vagi na Performed By: #### 9 1414, 09750 #### [facility], [address] [place] [address] [employer]worker: Beka Chicas MD STATEMENT OF ADEQUACY: Normal [facility] Comment on above: Result Comment: SATI SFACTORY FOR EVALUATION Performed By: #### 9 1414, 73400 #### [facility], [address] [place] [address] [employer]worker: Beka Chicas MD [facility] 07-10-2021 Albumin [Mass/Vol] 4.4 g/dL Normal 3.6-5.1 [facility] Comment on above: Performed By: #### 3 9979, 20148, 66007, 40459, 7600 #### [facility] [address], [address] [place] [address] [employer]worker: Beka Chicas MD Albumin/Globulin [Mass ratio] 1.6 {ratio} Normal 1.0-2.5 [facility] Comment on above: Performed By: #### 3 9329, 72953, 98794, 71414, 7600 #### [facility] [address], [address] [place] [address] [employer]worker: Beka Chicas MD ALP [Catalytic activity/Vol] 60 U/L Normal 37-153 [facility] Comment on above: Performed By: #### 3 4499, 03990, 17564, 83433, 7600 #### [facility] of [address], [address] [place] [address] [employer]worker: Beka Chicas MD ALT [Catalytic activity/Vol] 16 U/L Normal 6-29 [facility] Comment on above: Performed By: #### 3 4499, 15247, 57414, 96713, 7600 #### [facility] of [address], [address] [place] [address] [employer]worker: Beka Chicas MD AST [Catalytic activity/Vol] 18 U/L Normal 10-35 [facility] Comment on above: Performed By: #### 3 4499, 40940, 59969, 14296, 7600 #### [facility] of [place] [address] [employer]worker: Beka Chicas MD Bilirubin [Mass/Vol] 0.4 mg/dL Normal 0.2-1.2 [facility] Comment on above: Performed By: #### 3 4499, 13358, 35381, 36537, 7600 #### [facility] of [address], [address] [place] [address] [employer]worker: Beka Chicas MD BUN/CREATININE RATIO NOT APPLICABLE Normal 6-22 [facility] Comment on above: Performed By: #### 3 4499, 77149, 78254, 44489, 7600 #### [facility] of [place] [address] [employer]worker: Beka Chicas MD Calcium [Mass/Vol] 9.5 mg/dL Normal 8.6-10.4 [facility] Comment on above: Performed By: #### 3 4499, 97012, 45169, 18958, 7600 #### [facility] of [address], [address] [place] [address] [employer]worker: Beka Chicas MD Chloride [Moles/Vol] 103 mmol/L Normal 98-110 [facility] Comment on above: Performed By: #### 3 4499, 81064, 77305, 78443, 7600 #### [facility] of [address], [address] [place], [place] [address] [employer]worker: Beka Chicas MD CO2 [Moles/Vol] 26 mmol/L Normal 20-32 [facility] Comment on above: Performed By: #### 3 4499, 32896, 71506, 05345, 7600 #### [facility] [place] [address] [employer]worker: Beka Chicas MD Creatinine [Mass/Vol] 0.85 mg/dL Normal 0.50-1.05 [facility] Comment on above: Result Comment: For patients >49 years of age, the reference limit for Creatinine is approximately 13% higher for people identified as -Tunisian. Performed By: #### 3 4499, 11197, 93989, 55457, 7600 #### [facility] [address], [address] [place] [address] [employer]worker: Beka Chicas MD eGFR NON-AFR. SAMMARINESE 77 mL/min/1.73m2 Normal > OR = 60 [facility] Comment on above: Performed By: #### 3 4499, 24247, 23553, 19777, 7600 #### [facility] [place] [address] [employer]worker: Beka Chicas MD GFR/1.73 sq M.predicted among blacks MDRD (S/P/Bld) [Vol rate/Area] 89 mL/min/{1.73_m2} Normal > OR = 60 [facility] Comment on above: Performed By: #### 3 4499, 59141, 86664, 87879, 7600 #### [facility] [address], [address] [place] [address] [employer]worker: Beka Chicas MD Globulin (S) [Mass/Vol] 2.7 g/dL Normal 1.9-3.7 [facility] Comment on above: Performed By: #### 3 4499, 15787, 14180, 74690, 7600 #### [facility] [place] [address] [employer]worker: Beka Chicas MD Glucose [Mass/Vol] 95 mg/dL Normal 65-99 [facility] Comment on above: Result Comment: Fasting reference interval Performed By: #### 3 4499, 36245, 56072, 55926, 7600 #### [facility] of [address], [address] [place] [address] [employer]worker: Beka Chicas MD Potassium [Moles/Vol] 4.2 mmol/L Normal 3.5-5.3 [facility] Comment on above: Performed By: #### 3 4499, 75691, 84743, 21790, 7600 #### [facility] [place] [address] [employer]worker: Beka Chicas MD Protein [Mass/Vol] 7.1 g/dL Normal 6.1-8.1 [facility] Comment on above: Performed By: #### 3 4499, 21866, 12798, 51767, 7600 #### [facility] [place] [address] [employer]worker: Beka Chicas MD Sodium [Moles/Vol] 137 mmol/L Normal 135-146 [facility] Comment on above: Performed By: #### 3 4499, 63338, 94166, 23625, 7600 #### [facility] [place] [address] [employer]worker: Beka Chicas MD Urea nitrogen [Mass/Vol] 18 mg/dL Normal 7-25 [facility] Comment on above: Performed By: #### 3 4499, 25322, 84650, 77086, 7600 #### [facility] of [place] [address] [employer]worker: Beka Chicas MD LIPID PANEL, [facility] - Cholesterol [Mass/Vol] 160 mg/dL Normal <200 [facility] Comment on above: Order Comment: [facility] O NLY: NURSE COLLECTED - NO SPECIMEN PROVIDED. Performed By: #### 3 4499, 11293, 54343, 21976, 7600 #### [facility] of [place] [address], [address] [place] [address] [employer]worker: Beka Chicas MD Cholesterol in HDL [Mass/Vol] 52 mg/dL Normal > OR = 50 [facility] Comment on above: Order Comment: LT O NLY: NURSE COLLECTED - NO SPECIMEN PROVIDED. Performed By: #### 3 4499, 99323, 18759, 80562, 7600 #### [facility] [address], [address] [place] [address] [employer]worker: Beka Chicas MD Cholesterol in LDL [Mass/Vol] [...] LDL-C. Landen HERNANDEZ et al. DURGA. 2013;310(19): 7757-4436 (http://education.[employer]/faq/EFU999) Performed By: #### 3 4499, 35899, 48628, 46432, 7600 #### [facility] [address], [address] [place] [address] [employer]worker: Beka Chicas MD Cholesterol.total/C holesterol in HDL [Mass ratio] 3.1 {ratio} Normal <5.0 [facility] Comment on above: Order Comment: LT O NLY: NURSE COLLECTED - NO SPECIMEN PROVIDED. Performed By: #### 3 4499, 49410, 98211, 59006, 7600 #### [facility] [address], [address] [place] [address] [employer]worker: Beka Chicas MD NON HDL CHOLESTEROL 108 mg/dL (calc) Normal <130 [facility] Comment on above: Order Comment: LTC O NLY: NURSE COLLECTED - NO SPECIMEN PROVIDED. Result Comment: For patients with diabetes plus 1 major ASCVD risk factor, treating to a non-HDL-C goal of <100 mg/dL (LDL-C of <70 mg/dL) is considered a therapeutic option. Performed By: #### 3 4499, 64739, 05648, 04011, 7600 #### [facility] [address], [address] [address] [employer]worker: Beka Chicas MD Triglyceride [Mass/Vol] 103 mg/dL Normal <150 [facility] Comment on above: Order Comment: LTC O NLY: NURSE COLLECTED - NO SPECIMEN PROVIDED. Performed By: #### 3 4499, 86963, 77773, 06731, 7600 #### [facility] [address], [address] [address] [employer]worker: Beka Chicas MD SARS COV 2 AB (IGG) SPIKE, S [place] QNon 07-10-2021 SARS-CoV-2 (COVID-19) Ab IA Qn 5.30 index High <1.00 [facility] Comment on above: Result Comment: [...] providers and patients using the following websites: http://patient.[employer].com/[facility]-HCP http://patient.[facility].com/[facility]-Patients Healthcare Providers: For additional information please refer to: http://education.[employer]/faq/MXU183 (This link is being provided for informational/educational purposes only.) This test has been authorized by the FDA under an Emergency Use Authorization (EUA) for use by authorized laboratories. The FDA authorized labeling is available on the [employer] website: www.[employer]/Covid19. Performed By: #### 3 4499, 47691, 68231, 95284, 7600 #### [facility] [place] [address] [employer]worker: Beka Chicas MD TSH+FREE T4 07-10-2021 Free T4 [Mass/Vol] 1.1 ng/dL Normal 0.8-1.8 [facility] Comment on above: Performed By: #### 3 4499, 40038, 92734, 42069, 7600 #### [facility] [address], [address] [place] [address] [employer]worker: Beka Chicas MD TSH Qn 0.87 m[IU]/L Normal 0.40-4.50 [facility] Comment on above: Performed By: #### 3 4499, 85244, 53750, 92447, 7600 #### [facility] [address], [address] [place] [address] [employer]worker: Beka Chicas MD VITAMIN D,25-OH,TOTAL,IAon 1 09-10-2020 VITAMIN D,25-OH,TOTAL,IA 41 ng/mL Normal 30-100 [facility] Comment on above: Result Comment: Sandra min D Status 25-OH Vitamin D: Deficiency: <20 ng/mL Insufficiency: 20 - 29 ng/mL Optimal: > or = 30 ng/mL For 25-OH Vitamin D testing on patients on D2-supplementation and patients for whom quantitation of D2 and D3 fractions is required, the Quest[facility]ure[facility](TM) 25-OH VIT D, (D2,D3), LC/MS/MS is recommended: order code 19912 (patients >2yrs). See Note 1 Note 1 For additional information, please refer to http://education.[employer]/faq/FCS769 (This link is being provided for informational/ educational purposes only.) Performed By: #### 3 4499, 58742, 08272, 18457, 7600 #### [facility] [address], [address] [place] [address] [employer]worker: Beka Chicas MD Throat Cultureon 05-16-2021 Throat culture Respiratory Results Moderate Normal Respiratory Salo 2 Days PERFORMED BY: [place] [address] PATHOLOGIST EMPLOYEE RELATIONS DIRECTOR BRIDGET SANTIAGO M.D. [facility] Comment on above: Performed By: #### C [place] #### [address] Vital Signs Date Time Vital Sign Value Performing Clinician Facility 01-30-2025 13:00-0400 Body mass index (BMI) [Ratio] 41.88 kg/m2 Daina Bailey APRN-NEON MOLDER Work Phone: [facility] 01-30-2025 13:00-0400 Body weight 110.68 kg Daina Bailey APRN-NEON MOLDER Work Phone: [facility] 01-30-2025 13:00-0400 Diastolic blood pressure 70 mm[Hg] Daina Bailey APRN-NEON MOLDER Work Phone: [facility] 01-30-2025 13:00-0400 Heart rate 77 /min Daina Bailey PATIENT SUPPORT ASSOCIATE-NEON MOLDER Work Phone: [facility] 01-30-2025 13:00-0400 Respiratory rate 18 /min Daina Bailey PATIENT SUPPORT ASSOCIATE-NEON MOLDER Work Phone: [facility] 01-30-2025 13:00-0400 SaO2% (BldA) [Mass fraction] 98 % Daina Bailey PATIENT SUPPORT ASSOCIATE-NEON MOLDER Work Phone: [facility] 01-30-2025 13:00-0400 Systolic blood pressure 130 mm[Hg] Daina Bailey PATIENT SUPPORT ASSOCIATE-NEON MOLDER Work Phone: [facility] 01-10-2025 14:23-0400 Body height 162.6 cm Benjamin Goncalves PATIENT SUPPORT ASSOCIATE-NEON MOLDER Work Phone: [facility] 01-10-2025 14:23-0400 Body mass index (BMI) [Ratio] 41.2 kg/m2 Benjamin Goncalves PATIENT SUPPORT ASSOCIATE-NEON MOLDER Work Phone: [facility] 01-10-2025 14:23-0400 Body weight 108.86 kg Benjamin Goncalves PATIENT SUPPORT ASSOCIATE-NEON MOLDER Work Phone: [facility] 01-10-2025 14:23-0400 Diastolic blood pressure 109 mm[Hg] Benjamin Goncalves PATIENT SUPPORT ASSOCIATE-NEON MOLDER Work Phone: [facility] 01-10-2025 14:23-0400 Heart rate 68 /min Benjamin Goncalves PATIENT SUPPORT ASSOCIATE-NEON MOLDER Work Phone: [facility] 01-10-2025 14:23-0400 Systolic blood pressure 152 mm[Hg] Benjamin Goncalves PATIENT SUPPORT ASSOCIATE-NEON MOLDER Work Phone: [facility] 01-07-2025 15:56-0400 Body mass index (BMI) [Ratio] 41.86 kg/m2 Daina Bailey PATIENT SUPPORT ASSOCIATE-NEON MOLDER Work Phone: [facility] 01-07-2025 15:56-0400 Body weight 110.68 kg Daina Matiaser PATIENT SUPPORT ASSOCIATE-NEON MOLDER Work Phone: [facility] 01-07-2025 15:56-0400 Diastolic blood pressure 80 mm[Hg] Daina Michlachter PATIENT SUPPORT ASSOCIATE-NEON MOLDER Work Phone: [facility] 01-07-2025 15:56-0400 Heart rate 97 /min Daina Schlachter PATIENT SUPPORT ASSOCIATE-NEON MOLDER Work Phone: [facility] 01-07-2025 15:56-0400 Respiratory rate 18 /min Daina Schlachter PATIENT SUPPORT ASSOCIATE-NEON MOLDER Work Phone: [facility] 01-07-2025 15:56-0400 SaO2% (BldA) [Mass fraction] 99 % Daina Michlachter PATIENT SUPPORT ASSOCIATE-NEON MOLDER Work Phone: [facility] 01-07-2025 15:56-0400 Systolic blood pressure 142 mm[Hg] Daina Michlachter PATIENT SUPPORT ASSOCIATE-NEON MOLDER Work Phone: [facility] 10-29-2024 11:12-0400 Body mass index (BMI) [Ratio] 42.2 kg/m2 Daina Houchter PATIENT SUPPORT ASSOCIATE-NEON MOLDER Work Phone: [facility] 10-29-2024 11:12-0400 Body weight 111.58 kg Daina Houchter PATIENT SUPPORT ASSOCIATE-NEON MOLDER Work Phone: [facility] 10-29-2024 11:12-0400 Diastolic blood pressure 80 mm[Hg] Daina Schlachter PATIENT SUPPORT ASSOCIATE-NEON MOLDER Work Phone: [facility] 10-29-2024 11:12-0400 Heart rate 77 /min Daina Schlachter PATIENT SUPPORT ASSOCIATE-NEON MOLDER Work Phone: [facility] 10-29-2024 11:12-0400 Respiratory rate 18 /min Daina Schlachter PATIENT SUPPORT ASSOCIATE-NEON MOLDER Work Phone: [facility] 10-29-2024 11:12-0400 SaO2% (BldA) [Mass fraction] 93 % Daina Bailey PATIENT SUPPORT ASSOCIATE-NEON MOLDER Work Phone: [facility] 10-29-2024 11:12-0400 Systolic blood pressure 140 mm[Hg] Daina Matiaser PATIENT SUPPORT ASSOCIATE-NEON MOLDER Work Phone: [facility] 10-22-2024 11:13-0400 Body mass index (BMI) [Ratio] 42.03 kg/m2 Daina Bailey PATIENT SUPPORT ASSOCIATE-NEON MOLDER Work Phone: [facility] 10-22-2024 11:13-0400 Body weight 111.13 kg Daina Bailey PATIENT SUPPORT ASSOCIATE-NEON MOLDER Work Phone: [facility] 10-22-2024 11:13-0400 Diastolic blood pressure 80 mm[Hg] Daina Bailey PATIENT SUPPORT ASSOCIATE-NEON MOLDER Work Phone: [facility] 10-22-2024 11:13-0400 Heart rate 87 /min Daina Bailey PATIENT SUPPORT ASSOCIATE-NEON MOLDER Work Phone: [facility] 10-22-2024 11:13-0400 Respiratory rate 18 /min Daina Bailey PATIENT SUPPORT ASSOCIATE-NEON MOLDER Work Phone: [facility] 10-22-2024 11:13-0400 SaO2% (BldA) [Mass fraction] 97 % Daina Bailey PATIENT SUPPORT ASSOCIATE-NEON MOLDER Work Phone: [facility] 10-22-2024 11:13-0400 Systolic blood pressure 132 mm[Hg] Daina Matiaser PATIENT SUPPORT ASSOCIATE-NEON MOLDER Work Phone: [facility] 10-08-2024 13:10-0400 Body mass index (BMI) [Ratio] 42.2 kg/m2 Daina Matiaser PATIENT SUPPORT ASSOCIATE-NEON MOLDER Work Phone: [facility] 10-08-2024 13:10-0400 Body temperature 98.6 [degF] Daina Bailey APRN-NEON MOLDER Work Phone: [facility] 10-08-2024 13:10-0400 Body weight 111.58 kg Daina Bailey PATIENT SUPPORT ASSOCIATE-NEON MOLDER Work Phone: [facility] 10-08-2024 13:10-0400 Diastolic blood pressure 72 mm[Hg] Daina Bailey PATIENT SUPPORT ASSOCIATE-NEON MOLDER Work Phone: [facility] 10-08-2024 13:10-0400 Heart rate 66 /min Daina Bailey PATIENT SUPPORT ASSOCIATE-NEON MOLDER Work Phone: [facility] 10-08-2024 13:10-0400 Respiratory rate 18 /min Daina Bailey PATIENT SUPPORT ASSOCIATE-NEON MOLDER Work Phone: [facility] 10-08-2024 13:10-0400 SaO2% (BldA) [Mass fraction] 97 % Daina Bailey APRN-NEON MOLDER Work Phone: [facility] 10-08-2024 13:10-0400 Systolic blood pressure 130 mm[Hg] Daina Bailey APRN-NEON MOLDER Work Phone: [facility] 09-17-2024 16:54-0500 Body height 162.[address] [facility] 09-17-2024 16:54-0500 Body mass index (BMI) [Ratio] 41.3 kg/m2 [facility] 09-17-2024 16:54-0500 Body temperature 98.4 [degF] [facility] 09-17-2024 16:54-0500 Body weight 109.[address] [facility] 09-17-2024 16:54-0500 Diastolic blood pressure 84 mm[Hg] [facility] 09-17-2024 16:54-0500 Heart rate 77 /min [facility] 09-17-2024 16:54-0500 SaO2% (BldA) [Mass fraction] 97 % [facility] 09-17-2024 16:54-0500 Systolic blood pressure 130 mm[Hg] [facility] 06-25-2024 13:14-0500 Body height 162.6 cm Benjamin Goncalves PATIENT SUPPORT ASSOCIATE-NEON MOLDER Work Phone: [facility] 06-25-2024 13:14-0500 Body mass index (BMI) [Ratio] 40.32 kg/m2 Benjamin Goncalves PATIENT SUPPORT ASSOCIATE-NEON MOLDER Work Phone: [facility] 06-25-2024 13:14-0500 Body weight 106.59 kg Benjamin Goncalves PATIENT SUPPORT ASSOCIATE-NEON MOLDER Work Phone: [facility] 05-16-2024 07:42-0400 Diastolic blood pressure 83 mm[Hg] Brian Girard MD Work Phone: [facility] 05-16-2024 07:42-0400 Heart rate 81 /min Brian Girard MD Work Phone: [facility] 05-16-2024 07:42-0400 Respiratory rate 16 /min Brian Girard MD Work Phone: [facility] 05-16-2024 07:42-0400 SaO2% (BldA) [Mass fraction] 97 % Brian Girard MD Work Phone: [facility] 05-16-2024 07:42-0400 Systolic blood pressure 132 mm[Hg] Brian Girard MD Work Phone: [facility] 05-16-2024 05:08-0400 Body temperature 98.1 [degF] Brian Girard MD Work Phone: [facility] 05-15-2024 15:07-0400 Body height 162.6 cm Brian Girard MD Work Phone: [facility] 05-15-2024 15:07-0400 Body mass index (BMI) [Ratio] 42.4 kg/m2 Brian Girard MD Work Phone: [facility] 05-15-2024 15:07-0400 Body weight 112.1 kg Brian Girard MD Work Phone: [facility] 05-08-2024 09:51-0400 Body height 162.6 cm Justina Valdez MD Work Phone: [facility] 05-08-2024 09:51-0400 Body mass index (BMI) [Ratio] 42.14 kg/m2 Justina Valdez MD Work Phone: [facility] 05-08-2024 09:51-0400 Body temperature 98.4 [degF] Justina Valdez MD Work Phone: [facility] 05-08-2024 09:51-0400 Body weight 111.36 kg Justina Valdez MD Work Phone: [facility] 05-08-2024 09:51-0400 Diastolic blood pressure 80 mm[Hg] Justina Valdez MD Work Phone: [facility] 05-08-2024 09:51-0400 Heart rate 76 /min Justina Valdez MD Work Phone: [facility] 05-08-2024 09:51-0400 Respiratory rate 16 /min Justina Valdez MD Work Phone: [facility] 05-08-2024 09:51-0400 Systolic blood pressure 134 mm[Hg] Justina Valdez MD Work Phone: [facility] 05-03-2024 12:55-0400 Body height 162.6 cm [facility] [address] [place] [address] 05-03-2024 12:55-0400 Body mass index (BMI) [Ratio] 42.42 kg/m2 [facility] [address] [place] [address] 05-03-2024 12:55-0400 Body temperature 97.81 [degF] [facility] [address] [place] [address] 05-03-2024 12:55-0400 Body weight 112.1 kg [facility] 05-03-2024 12:55-0400 Diastolic blood pressure 74 mm[Hg] [facility] [address] [place] [address] 05-03-2024 12:55-0400 Heart rate 78 /min [facility] 05-03-2024 12:55-0400 Respiratory rate 20 /min [facility] 05-03-2024 12:55-0400 SaO2% (BldA) [Mass fraction] 96 % [facility] 05-03-2024 12:55-0400 Systolic blood pressure 130 mm[Hg] [facility] [address] [place] [address] 05-01-2024 11:10-0400 Body height 162.6 cm Maverick Nick MD Work Phone: [facility] 05-01-2024 11:10-0400 Body mass index (BMI) [Ratio] 42.23 kg/m2 Maverick Nick MD Work Phone: [facility] 05-01-2024 11:10-0400 Body weight 111.58 kg Maverick Nick MD Work Phone: [facility] 05-01-2024 11:10-0400 Diastolic blood pressure 93 mm[Hg] Maverick Nick MD Work Phone: [facility] 05-01-2024 11:10-0400 Heart rate 104 /min Maverick Nick MD Work Phone: [facility] 05-01-2024 11:10-0400 Systolic blood pressure 145 mm[Hg] Maverick Nick MD Work Phone: [facility] 04-12-2024 11:19-0400 Body height 162.6 cm Brian Girard MD Work Phone: [facility] 04-12-2024 11:19-0400 Body mass index (BMI) [Ratio] 41.2 kg/m2 Brian Girard MD Work Phone: [facility] 04-12-2024 11:19-0400 Body weight 108.86 kg Brian Girard MD Work Phone: [facility] 04-12-2024 11:19-0400 Diastolic blood pressure 95 mm[Hg] Brian Girard MD Work Phone: [facility] 04-12-2024 11:19-0400 Heart rate 83 /min rBian Girard MD Work Phone: [facility] 04-12-2024 11:19-0400 Systolic blood pressure 127 mm[Hg] Brian Girard MD Work Phone: [facility] 04-09-2024 10:20-0400 Body height 162.6 cm Justina Valdez MD Work Phone: [facility] 04-09-2024 10:20-0400 Body mass index (BMI) [Ratio] 41.63 kg/m2 Justina Valdez MD Work Phone: [facility] 04-09-2024 10:20-0400 Body weight 110 kg Justina Valdez MD Work Phone: [facility] 04-09-2024 10:20-0400 Diastolic blood pressure 88 mm[Hg] Justina Valdez MD Work Phone: [facility] 04-09-2024 10:20-0400 Heart rate 80 /min Justina Valdez MD Work Phone: [facility] 04-09-2024 10:20-0400 Respiratory rate 16 /min Justina Valdez MD Work Phone: [facility] 04-09-2024 10:20-0400 Systolic blood pressure 148 mm[Hg] Justina Valdez MD Work Phone: [facility] 04-05-2024 07:54-0400 Body height 162.6 cm Lucila SWEENEY Work Phone: [facility] 04-05-2024 07:54-0400 Body mass index (BMI) [Ratio] 41.71 kg/m2 Lucila SWEENEY Work Phone: [facility] 04-05-2024 07:54-0400 Body weight 110.22 kg Lucila SWEENEY Work Phone: [facility] 04-05-2024 07:54-0400 Diastolic blood pressure 104 mm[Hg] Lucila SWEENEY Work Phone: [facility] 04-05-2024 07:54-0400 Heart rate 83 /min Lucila SWEENEY Work Phone: [facility] 04-05-2024 07:54-0400 SaO2% (BldA) [Mass fraction] 97 % Lucila SWEENEY Work Phone: [facility] 04-05-2024 07:54-0400 Systolic blood pressure 175 mm[Hg] Lucila SWEENEY Work Phone: [facility] 03-19-2024 11:04-0400 Body height 165.1 cm Maverick Nick MD Work Phone: [facility] 03-19-2024 11:04-0400 Body mass index (BMI) [Ratio] 40.94 kg/m2 Maverick Nick MD Work Phone: [facility] 03-19-2024 11:04-0400 Body weight 111.58 kg Maverick Nick MD Work Phone: [facility] 03-14-2024 16:08-0400 Body height 165.1 cm Justina Valdez MD Work Phone: [facility] 03-14-2024 16:08-0400 Body mass index (BMI) [Ratio] 40.94 kg/m2 Justina Valdez MD Work Phone: [facility] 03-14-2024 16:08-0400 Body temperature 98.01 [degF] Justina Valdez MD Work Phone: [facility] 03-14-2024 16:08-0400 Body weight 111.58 kg Justina Valdez MD Work Phone: [facility] 03-14-2024 16:08-0400 Diastolic blood pressure 80 mm[Hg] Justina Valdez MD Work Phone: [facility] 03-14-2024 16:08-0400 Heart rate 80 /min Justina Valdez MD Work Phone: [facility] 03-14-2024 16:08-0400 Respiratory rate 16 /min Jsutina Valdez MD Work Phone: [facility] 03-14-2024 16:08-0400 Systolic blood pressure 138 mm[Hg] Justina Valdez MD Work Phone: [facility] 03-08-2024 15:26-0400 Body height 165.1 cm Justina Valdez MD Work Phone: [facility] 03-08-2024 15:26-0400 Body mass index (BMI) [Ratio] 41.02 kg/m2 Justina Valdez MD Work Phone: [facility] 03-08-2024 15:26-0400 Body temperature 98.91 [degF] Justina Valdez MD Work Phone: [facility] 03-08-2024 15:26-0400 Body weight 111.81 kg Justina Valdez MD Work Phone: [facility] 03-08-2024 15:26-0400 Diastolic blood pressure 84 mm[Hg] Justina Valdez MD Work Phone: [facility] 03-08-2024 15:26-0400 Heart rate 88 /min Justina Valdez MD Work Phone: [facility] 03-08-2024 15:26-0400 Respiratory rate 16 /min Justina Valdez MD Work Phone: [facility] 03-08-2024 15:26-0400 Systolic blood pressure 132 mm[Hg] Justina Valdez MD Work Phone: [facility] 02-21-2024 14:17-0400 Body height 162.6 cm Maverick Nick MD Work Phone: [facility] 02-21-2024 14:17-0400 Body mass index (BMI) [Ratio] 41.68 kg/m2 Maverick Nick MD Work Phone: [facility] 02-21-2024 14:17-0400 Body weight 110.13 kg Maverick Nick MD Work Phone: [facility] 02-21-2024 14:17-0400 Diastolic blood pressure 70 mm[Hg] Maverick Nick MD Work Phone: [facility] 02-21-2024 14:17-0400 Heart rate 83 /min Maverick Nick MD Work Phone: [facility] 02-21-2024 14:17-0400 Systolic blood pressure 124 mm[Hg] Maverick Nick MD Work Phone: [facility] 02-14-2024 14:11-0400 Diastolic blood pressure 86 mm[Hg] Lucila SWEENEY Work Phone: [facility] 02-14-2024 14:11-0400 Heart rate 80 /min Lucila Verdugo PA Work Phone: [facility] 02-14-2024 14:11-0400 Respiratory rate 18 /min Lucila Verdugo PA Work Phone: [facility] 02-14-2024 14:11-0400 SaO2% (BldA) [Mass fraction] 97 % Lucila SWEENEY Work Phone: [facility] 02-14-2024 14:11-0400 Systolic blood pressure 136 mm[Hg] Lucila SWEENEY Work Phone: [facility] 02-14-2024 11:15-0400 Body height 162.6 cm Maverick Nick MD Work Phone: [facility] 02-14-2024 11:15-0400 Body mass index (BMI) [Ratio] 41.57 kg/m2 Maverick Nick MD Work Phone: [facility] 02-14-2024 11:15-0400 Body weight 109.86 kg Maverick Nick MD Work Phone: [facility] 01-13-2024 09:40-0400 Body height 162.6 cm [facility] 01-13-2024 09:40-0400 Body mass index (BMI) [Ratio] 41.2 kg/m2 [facility] 01-13-2024 09:40-0400 Body weight 108.86 kg [facility] 01-10-2024 08:55-0400 Body height 162.6 cm Maverick Nick MD Work Phone: [facility] 01-10-2024 08:55-0400 Body mass index (BMI) [Ratio] 42.67 kg/m2 Maverick Nick MD Work Phone: [facility] 01-10-2024 08:55-0400 Body weight 112.76 kg Maverick Nick MD Work Phone: [facility] 01-10-2024 08:55-0400 Diastolic blood pressure 91 mm[Hg] Maverick Nick MD Work Phone: [facility] 01-10-2024 08:55-0400 Heart rate 71 /min Maverick Nick MD Work Phone: [facility] 01-10-2024 08:55-0400 Systolic blood pressure 156 mm[Hg] Maverick Nick MD Work Phone: [facility] 01-09-2024 10:26-0400 Body height 162.[address] [facility] 01-09-2024 10:26-0400 Body mass index (BMI) [Ratio] 42 kg/m2 [facility] 01-09-2024 10:26-0400 Body weight 111.[address] [facility] 01-09-2024 10:26-0400 Diastolic blood pressure 60 mm[Hg] [facility] 01-09-2024 10:26-0400 Heart rate 45 /min [facility] 01-09-2024 10:26-0400 Systolic blood pressure 115 mm[Hg] [facility] 01-05-2024 09:16-0400 Body height 162.6 cm Lucila Verdugo PA Work Phone: [facility] 01-05-2024 09:16-0400 Body mass index (BMI) [Ratio] 42.4 kg/m2 Lucila Verdugo PA Work Phone: [facility] 01-05-2024 09:16-0400 Body weight 112.04 kg Lucilaterese Verdugo PA Work Phone: [facility] 01-05-2024 09:16-0400 Diastolic blood pressure 94 mm[Hg] Lucila Verdugo PA Work Phone: [facility] 01-05-2024 09:16-0400 Heart rate 63 /min Lucila Verdugo PA Work Phone: [facility] 01-05-2024 09:16-0400 Respiratory rate 18 /min Lucilaterese Verdugo PA Work Phone: [facility] 01-05-2024 09:16-0400 SaO2% (BldA) [Mass fraction] 100 % Lucila Verdugo PA Work Phone: [facility] 01-05-2024 09:16-0400 Systolic blood pressure 149 mm[Hg] Lucila Verdugo PA Work Phone: [facility] 12-27-2023 08:50-0400 Body height 163.8 cm Benjamin Goncalves PATIENT SUPPORT ASSOCIATE-NEON MOLDER Work Phone: [facility] 12-27-2023 08:50-0400 Body mass index (BMI) [Ratio] 39.73 kg/m2 Benjamin Goncalves PATIENT SUPPORT ASSOCIATE-NEON MOLDER Work Phone: [facility] 12-27-2023 08:50-0400 Body weight 106.59 kg Benjamin Goncalves PATIENT SUPPORT ASSOCIATE-NEON MOLDER Work Phone: [facility] 12-27-2023 08:50-0400 Diastolic blood pressure 84 mm[Hg] Benjamin Goncalves PATIENT SUPPORT ASSOCIATE-NEON MOLDER Work Phone: [facility] 12-27-2023 08:50-0400 Heart rate 76 /min Benjamin Goncalves PATIENT SUPPORT ASSOCIATE-NEON MOLDER Work Phone: [facility] 12-27-2023 08:50-0400 Systolic blood pressure 140 mm[Hg] Benjamin Goncalves PATIENT SUPPORT ASSOCIATE-NEON MOLDER Work Phone: [facility] 12-06-2023 13:54-0400 Body height 163.8 cm Maverick Nick MD Work Phone: [facility] 12-06-2023 13:54-0400 Body mass index (BMI) [Ratio] 41.44 kg/m2 Maverick Nick MD Work Phone: [facility] 12-06-2023 13:54-0400 Body weight 111.22 kg Maverick Nick MD Work Phone: [facility] 12-06-2023 13:54-0400 Diastolic blood pressure 98 mm[Hg] Maverick Nick MD Work Phone: [facility] 12-06-2023 13:54-0400 Systolic blood pressure 152 mm[Hg] Maverick Nick MD Work Phone: [facility] 11-24-2023 15:09-0400 Body height 163.8 cm Justina Valdez MD Work Phone: [facility] 11-24-2023 15:09-0400 Body mass index (BMI) [Ratio] 41.15 kg/m2 Justina Valdez MD Work Phone: [facility] 11-24-2023 15:09-0400 Body temperature 98.01 [degF] Justina Valdez MD Work Phone: [facility] 11-24-2023 15:09-0400 Body weight 110.45 kg Justina Valdez MD Work Phone: [facility] 11-24-2023 15:09-0400 Diastolic blood pressure 80 mm[Hg] Justina Valdez MD Work Phone: [facility] 11-24-2023 15:09-0400 Heart rate 88 /min Justina Valdez MD Work Phone: [facility] 11-24-2023 15:09-0400 Respiratory rate 16 /min Justina Valdez MD Work Phone: [facility] 11-24-2023 15:09-0400 Systolic blood pressure 144 mm[Hg] Justina Valdez MD Work Phone: [facility] 11-18-2023 08:47-0400 Body height 163.8 cm Justina Valdez MD Work Phone: [facility] 11-18-2023 08:47-0400 Body mass index (BMI) [Ratio] 40.9 kg/m2 Justina Valdez MD Work Phone: [facility] 11-18-2023 08:47-0400 Body temperature 99.61 [degF] Justina Valdez MD Work Phone: [facility] 11-18-2023 08:47-0400 Body weight 109.77 kg Justina Valdez MD Work Phone: [facility] 11-18-2023 08:47-0400 Diastolic blood pressure 80 mm[Hg] Justina Valdez MD Work Phone: [facility] 11-18-2023 08:47-0400 Heart rate 88 /min Justina Valdez MD Work Phone: [facility] 11-18-2023 08:47-0400 Respiratory rate 16 /min Justina Valdez MD Work Phone: [facility] 11-18-2023 08:47-0400 Systolic blood pressure 142 mm[Hg] Justina Valdez MD Work Phone: [facility] 11-09-2023 15:24-0400 Body height 163.8 cm Justina Valdez MD Work Phone: [facility] 11-09-2023 15:24-0400 Body mass index (BMI) [Ratio] 42.25 kg/m2 Justina Valdez MD Work Phone: [facility] 11-09-2023 15:24-0400 Body temperature 98.8 [degF] Justina Valdez MD Work Phone: [facility] 11-09-2023 15:24-0400 Body weight 113.4 kg Justina Valdez MD Work Phone: [facility] 11-09-2023 15:24-0400 Diastolic blood pressure 80 mm[Hg] Justina Valdez MD Work Phone: [facility] 11-09-2023 15:24-0400 Heart rate 80 /min Justina Valdez MD Work Phone: [facility] 11-09-2023 15:24-0400 Respiratory rate 16 /min Justina Valdez MD Work Phone: [facility] 11-09-2023 15:24-0400 Systolic blood pressure 158 mm[Hg] Justina Valdez MD Work Phone: [facility] 09-29-2023 15:49-0500 Body height 163.8 cm Justina Valdez MD Work Phone: [facility] 09-29-2023 15:49-0500 Body mass index (BMI) [Ratio] 42.25 kg/m2 Justina Valdez MD Work Phone: [facility] 09-29-2023 15:49-0500 Body weight 113.4 kg Justina Valdez MD Work Phone: [facility] 09-29-2023 15:49-0500 Diastolic blood pressure 84 mm[Hg] Justina Valdez MD Work Phone: [facility] 09-29-2023 15:49-0500 Heart rate 80 /min Justina Valdez MD Work Phone: [facility] 09-29-2023 15:49-0500 Respiratory rate 16 /min [facility] 09-29-2023 15:49-0500 Systolic blood pressure 138 mm[Hg] Justina Valdez MD Work Phone: [facility] [facility] 09-[facility]2023 08:09-0500 Body height 163.8 cm Justina Valdez MD Work Phone: [facility] 09-02-2023 08:09-0500 Body mass index (BMI) [Ratio] 42.17 kg/m2 Justina Valdez MD Work Phone: [facility] 09-02-2023 08:09-0500 Body weight 113.17 kg Justina Valdez MD Work Phone: [facility] 09-02-2023 08:09-0500 Diastolic blood pressure 80 mm[Hg] Justina Valdez MD Work Phone: [facility] 09-02-2023 08:09-0500 Heart rate 80 /min Justina Valdez MD Work Phone: [employer] 09-02-2023 08:09-0500 Respiratory rate 16 /min Justina Valdez MD Work Phone: [facility] 09-02-2023 08:09-0500 Systolic blood pressure 140 mm[Hg] Justina Valdez MD Work Phone: [employer] 09-09-2022 16:50-0500 Body height 162.56 cm María Hager Other [employer] Other 09-09-2022 16:50-0500 Body temperature 99 [degF] María Hager Other [employer] Other 09-09-2022 16:50-0500 SaO2% (BldA) [Mass fraction] 98 % María Hager Other [employer] Other 05-16-2021 11:00-0400 Body height 162.56 cm Yesica Ginty Other [employer] Other 05-16-2021 11:00-0400 Body mass index (BMI) [Ratio] 37.76 kg/m2 Yesica Ginty Other [employer] Other 05-16-2021 11:00-0400 Body temperature 97.1 [degF] Yesica Ginty Other [employer] Other 05-16-2021 11:00-0400 Body weight 99.79 kg Yesica Ginty Other [employer] Other 05-16-2021 11:00-0400 SaO2% (BldA) [Mass fraction] 96 % Yesica Ginty Other [employer] Other Encounters Encounter Date Encounter Type Care Provider Facility Start: 01-30-2025 End: 01-30-2025 Office outpatient visit 25 minutes Daina Bailey PATIENT SUPPORT ASSOCIATE-NEON MOLDER Work Phone: [facility] Comment on above: Acute pain of right knee (Primary Dx) Start: 01-15-2025 End: 01-15-2025 Orders Only Benjamin Goncalves PATIENT SUPPORT ASSOCIATE-NEON MOLDER Work Phone: [facility] Comment on above: Acute midline low ba ck pain without sciatica (Primary Dx); Status post lumbar laminectomy Start: 01-14-2025 End: 01-15-2025 Telephone encounter Annamaria Mata LPN [facility] Comment on above: medrol dose radha requ est Start: 01-10-2025 End: 01-10-2025 Office outpatient visit 10 minutes Benjamin Goncalves PATIENT SUPPORT ASSOCIATE-NEON MOLDER Work Phone: [facility] Comment on above: Status post lumbar l aminectomy (Primary Dx); Acute midline low back pain without sciatica; Bowel dysfunction; Lumbar spondylosis Start: 01-10-2025 End: 01-10-2025 ambulatory [facility] Start: 01-08-2025 End: 01-08-2025 Orders Only Erin Morejonnn [facility] Comment on above: Back pain, unspecifi ed back location, unspecified back pain laterality, unspecified chronicity (Primary Dx) Start: 01-07-2025 End: 01-07-2025 Office outpatient visit 25 minutes Daina Bailey PATIENT SUPPORT ASSOCIATE-NEON MOLDER Work Phone: [facility] Comment on above: Lumbar spondylosis ( Primary Dx) Start: 01-07-2025 End: 01-07-2025 ambulatory [facility] Start: 10-29-2024 End: 10-29-2024 Office outpatient visit 15 minutes Daina Bailey PATIENT SUPPORT ASSOCIATE-NEON MOLDER Work Phone: [facility] Comment on above: Bronchitis (Primary Dx) Start: 10-29-2024 End: 10-29-2024 ambulatory [facility] Start: 10-22-2024 End: 10-22-2024 Office outpatient visit 15 minutes Daina Bailey PATIENT SUPPORT ASSOCIATE-NEON MOLDER Work Phone: [facility] Comment on above: Bronchitis Start: 10-22-2024 End: 10-22-2024 ambulatory [facility] Start: 10-08-2024 End: 10-08-2024 Office outpatient visit 25 minutes Daina Bailey PATIENT SUPPORT ASSOCIATE-NEON MOLDER Work Phone: [facility] Comment on above: Bronchitis (Primary Dx) Start: 10-08-2024 End: 10-08-2024 ambulatory [facility] Start: 09-24-2024 End: 09-24-2024 Office outpatient visit 15 minutes Benjamin Goncalves PATIENT SUPPORT ASSOCIATE-NEON MOLDER [facility] Phone[facility] Comment on above: Status post lumbar l aminectomy (Primary Dx) Start: 09-24-2024 End: 09-24-2024 ambulatory [facility] Start: 09-17-2024 End: 09-17-2024 ambulatory [facility] Work Phone: Start: 09-17-2024 End: 09-17-2024 Patient encounter procedure [facility] Work Phone: Start: 08-27-2024 ambulatory [facility] Start: 07-26-2024 ambulatory [facility]AMIN [facility] Start: 06-26-2024 [facility] Start: 06-25-2024 End: 06-25-2024 Postop follow up visit related to original px Benjamin Goncalves PATIENT SUPPORT ASSOCIATE-NEON MOLDER Work Phone: [facility] Comment on above: Status post lumbar l aminectomy (Primary Dx); Muscle spasm of back Start: 06-25-2024 End: 06-25-2024 ambulatory [facility] Start: 05-15-2024 End: 05-16-2024 ambulatory [facility] Start: 05-15-2024 End: 05-16-2024 Subsequent hospital visit by physician Brian Girard MD Work Phone: [facility] Comment on above: Spinal stenosis of l umbar region with neurogenic claudication (Primary Dx); Lumbar radiculopathy; Lumbar herniated disc Start: 05-08-2024 End: 05-08-2024 Office outpatient visit 15 minutes Justina Valdez MD Work Phone: [facility] Comment on above: Other acute sinusiti s, recurrence not specified (Primary Dx) Start: 05-08-2024 End: 05-08-2024 ambulatory JUSTINA VALDEZ [facility] Start: 05-03-2024 End: 05-03-2024 Telephone encounter Annamaria [facility]ata LPN [facility] Comment on above: steroid injections Start: 05-03-2024 End: 05-03-2024 Patient encounter procedure [facility] Provider 10 [facility] Comment on above: Lumbar radiculopathy ; Lumbar herniated disc Start: 05-03-2024 End: 05-03-2024 ambulatory [facility] Start: 05-01-2024 End: 05-01-2024 Postop follow up visit related to original px Maverick Nick MD Work Phone: [facility] Comment on above: Status post laparosc opic colectomy (Primary Dx) Start: 05-01-2024 End: 05-01-2024 ambulatory [facility] Start: 04-25-2024 End: 04-26-2024 Refill Natasha Wilson RN [facility] Comment on above: Lumbosacral spondylo sis without myelopathy (Primary Dx) Start: 04-17-2024 End: 04-17-2024 Telephone encounter Jennifer Patel [facility] Start: 04-12-2024 End: 04-12-2024 ambulatory [facility] Start: 04-12-2024 Encounter for other preprocedural examination [facility] Start: 04-12-2024 End: 04-12-2024 Office outpatient visit 25 minutes Brian Girard MD Work Phone: [facility] Comment on above: Lumbar radiculopathy (Primary Dx); Pre-op testing Start: 04-12-2024 End: 04-12-2024 Patient encounter status Brian Girard MD Work Phone: [facility] Start: 04-12-2024 End: 04-12-2024 ambulatory [facility] Start: 04-12-2024 Encounter for other preprocedural examination [facility] Start: 04-09-2024 End: 04-09-2024 Emergency department patient visit JUSTINA T [facility] Start: 04-09-2024 End: 04-09-2024 Office outpatient visit 15 minutes Justina Valdez MD Work Phone: [facility] Comment on above: Lumbar spondylosis ( Primary Dx); Bulging lumbar disc; Displacement of left side of L4-L5 intervertebral disc Start: 04-09-2024 End: 04-09-2024 ambulatory [facility] Start: 04-06-2024 End: 04-07-2024 Emergency department patient visit ANALIA Philip MARKBJ [facility] Start: 04-06-2024 End: 04-06-2024 Emergency department patient visit [place] Jodie [facility] Start: 04-06-2024 End: 04-12-2024 Telephone encounter Rossana Bruno RN [facility] Comment on above: Pain Start: 04-05-2024 End: 04-05-2024 ambulatory LUCILA VERDUGO [facility] Start: 04-05-2024 End: 04-05-2024 Office outpatient visit 25 minutes Lucila SWEENEY Work Phone: [facility] Comment on above: Disorder of sacrum ( Primary Dx) Start: 04-03-2024 End: 04-03-2024 Refill Jennifer Patel [facility] Start: 04-02-2024 End: 04-02-2024 Telephone encounter Jennifer Patel [facility] Start: 03-20-2024 End: 03-21-2024 Telephone encounter Emma Stroud [facility] Start: 03-19-2024 End: 03-19-2024 Postop follow up visit related to original px Maverick Nick MD Work Phone: [facility] Comment on above: Post-op pain Start: 03-19-2024 End: 03-19-2024 [facility] Start: 03-14-2024 End: 03-14-2024 Office outpatient visit 15 minutes Justina Valdez MD Work Phone: [facility] Comment on above: Other acute sinusiti s, recurrence not specified (Primary Dx) Start: 03-14-2024 End: 03-14-2024 Orders Only Justina Valdez MD [facility] Start: 03-13-2024 End: 03-13-2024 ambulatory JUSTINA Feliciano [facility] Start: 03-13-2024 Encounter for genera l adult medical examination without abnormal findings [facility] Start: 03-08-2024 End: 03-08-2024 ambulatory JUSTINA Feliciano [facility] Start: 03-08-2024 End: 03-08-2024 Patient encounter status Justina Valdez MD Work Phone: [facility] Work Phone: Start: 03-08-2024 End: 03-08-2024 Periodic preventive med est patient 40-64yrs Justina Valdez MD Work Phone: [facility] Comment on above: Routine general medi sania examination at a health care facility (Primary Dx) Start: 02-27-2024 End: 02-27-2024 Telephone encounter Emma Maximus [facility] Start: 02-25-2024 End: 02-25-2024 Orders Only Maverick Nick MD Work Phone: [facility] Comment on above: Post-op pain (Primar y Dx) Start: 02-24-2024 End: 02-24-2024 ambulatory [facility] Start: 02-21-2024 End: 02-21-2024 Postop follow up visit related to original px Maverick Nick MD Work Phone: [facility] Comment on above: Status post laparosc opic colectomy (Primary Dx) Start: 02-21-2024 End: 02-21-2024 [facility] Start: 02-15-2024 End: 02-15-2024 ambulatory [facility] Start: 02-14-2024 End: 02-14-2024 Office outpatient visit 15 minutes Lucila SWEENEY Work Phone: [facility] Comment on above: Lumbar spondylosis ( Primary Dx) Start: 02-14-2024 End: 02-14-2024 ambulatory LUCILA VERDUGO [facility] Start: 02-14-2024 End: 02-14-2024 Postop follow up visit related to original px Maverick Nick MD Work Phone: [facility] Comment on above: Status post laparosc opic colectomy (Primary Dx); Postoperative abdominal pain Start: 02-14-2024 End: 02-14-2024 ambulatory [facility] Start: 02-01-2024 End: 02-01-2024 [facility] Start: 01-30-2024 Preprocedural examination done Lucila SWEENEY Work Phone: [facility] Work Phone: Start: 01-30-2024 Encounter for other preprocedural examination [facility] Start: 01-30-2024 End: 02-01-2024 Evaluation and management of inpatient [facility] Start: 01-29-2024 End: 01-29-2024 ambulatory [facility] [address] Start: 01-25-2024 End: 02-23-2024 ambulatory BENJAMIN GONCALVES [facility] Start: 01-20-2024 End: 01-20-2024 ambulatory [facility] Start: 01-20-2024 End: 01-20-2024 ambulatory SIMEON JOE [facility] Start: 01-13-2024 End: 01-13-2024 Patient encounter procedure Pm Pre-Admission Testing 1 [facility] Pre [facility] Start: 01-13-2024 End: 01-13-2024 [facility] Start: 01-10-2024 End: 01-10-2024 Office outpatient visit 25 minutes Maverick Nick MD Work Phone: [facility] Comment on above: Diverticulitis large intestine w/o perforation or abscess w/o bleeding (Primary Dx) Start: 01-09-2024 End: 01-09-2024 ambulatory [facility] Work Phone: Start: 01-09-2024 End: 01-09-2024 Patient encounter procedure [facility] Work Phone: Start: 01-05-2024 End: 01-05-2024 Office outpatient new 30 minutes Lucila SWEENEY Work Phone: [facility] Comment on above: Disorder of sacrum ( Primary Dx); Chronic midline low back pain with left-sided sciatica; Bulging lumbar disc; Lumbar foraminal stenosis Start: 01-05-2024 End: 01-05-2024 ambulatory LUCILA VERDUGO [facility] Start: 01-05-2024 End: 01-05-2024 Evaluation and management of inpatient ANGIE Tatiana SWIFT [facility] Start: 01-04-2024 End: 01-05-2024 Evaluation and management of [facility] Start: 01-04-2024 End: 01-04-2024 Evaluation and management of [facility] Start: 12-28-2023 End: 12-28-2023 ambulatory [facility] Pat Phone Call Provider 1 [facility] Start: 12-28-2023 End: 12-28-2023 ambulatory JUSTINA VALDEZ [facility] Start: 12-28-2023 End: 01-23-2024 ambulatory BENJAMIN GONCALVES [facility] Start: 12-27-2023 End: 12-27-2023 Office outpatient new 45 minutes Benjamin Goncalves PATIENT SUPPORT ASSOCIATE-NEON MOLDER Work Phone: [facility] Comment on above: Lumbar foraminal eliz nosis (Primary Dx); Chronic midline low back pain with left-sided sciatica; Bulging lumbar disc Start: 12-13-2023 End: 12-13-2023 Orders Only Justina Valdez MD Work Phone: [facility] Comment on above: Chronic midline low back pain with left-sided sciatica (Primary Dx) Low back pain, unspe cified back pain laterality, unspecified chronicity, unspecified whether sciatica present (Primary Dx) Start: 12-09-2023 End: 12-09-2023 [facility] Start: 12-06-2023 End: 12-06-2023 Office outpatient visit 15 minutes Maverick Nick MD Work Phone: [facility] Comment on above: Diverticulitis (Prim adrienne Dx) Start: 11-28-2023 End: 11-28-2023 Telephone encounter Justina Valdez MD Work Phone: [facility] Start: 11-24-2023 End: 11-24-2023 ambulatory JUSTINA VALDEZ [facility] Start: 11-24-2023 End: 11-24-2023 Transitional care manage srvc 7 day discharge Justina Valdez MD Work Phone: [facility] Comment on above: Diverticular disease (Primary Dx); Lumbar degenerative disc disease Start: 11-18-2023 End: 11-22-2023 Telephone encounter Valeria Forrest CMA [facility] Start: 11-18-2023 End: 11-18-2023 Office outpatient visit 15 minutes Justina Valdez MD Work Phone: [facility] Comment on above: Diverticular disease (Primary Dx); Left lower quadrant abdominal pain Start: 11-17-2023 End: 11-17-2023 Telephone encounter Valeria Forrest CMA [facility] Start: 11-16-2023 End: 11-16-2023 Telephone encounter Valeria Forrest CMA [facility] Start: 11-09-2023 End: 11-09-2023 Office outpatient visit 25 minutes Justina Valdez MD Work Phone: [facility] Comment on above: Diverticular disease (Primary Dx) Start: 09-29-2023 End: 09-29-2023 Office outpatient visit 15 minutes Justina Valdez MD Work Phone: [facility] Comment on above: TOS (thoracic outlet syndrome) (Primary Dx) Start: 09-02-2023 End: 09-02-2023 Office outpatient visit 15 minutes Justina Valdez MD Work Phone: [facility] Comment on above: Lumbar degenerative disc disease (Primary Dx) Start: 09-09-2022 End: 09-09-2022 ambulatory María Hager Other [employer] Other Start: 09-09-2022 Office outpatient vi sit 15 minutes María Hager [facility] Start: 07-19-[address] SERVANDO SCHAEFFER Fac ility:[facility] Start: 06-22-2022 End: 06-23-[address] SERVANDO SCHAEFFER Facility:[facility] Start: 02-02-2022 End: 02-03-[address] SERA HINOJOSA Facility:[facility] Start: 12-15-2021 End: 12-16-2021 ambulatory PHILIP PARKER Facility:[facility] Start: 05-21-2021 Telephone encounter Yesica Sunshine [facility] [address] Start: 05-16-2021 Office outpatient vi sit 15 minutes Yesica Sunshine [facility] Procedures Date Procedure Procedure Detail Performing Clinician Start: 01-30-2025 Adult depression screening assessment Daina Bailey PATIENT SUPPORT ASSOCIATE-NEON MOLDER Work Phone: Start: 01-07-2025 Adult depression screening assessment Daina Bailey PATIENT SUPPORT ASSOCIATE-NEON MOLDER Work Phone: Start: 05-15-2024 Fluoroscopy up to 1 hour physician/qhp time Brian Girard MD Work Phone: Start: 05-15-2024 REPEATED ABORH Brian Girard MD Work Phone: Start: 05-15-2024 Adult depression screening assessment Benjamin Goncalves PATIENT SUPPORT ASSOCIATE-NEON MOLDER Work Phone: Start: 05-08-2024 Adult depression screening assessment Justina Valdez MD Work Phone: Start: 05-03-2024 Antibody screen [facility] 1 0 Start: 05-03-2024 Blood typing serolog ic abo Brian Girard MD Work Phone: Start: 05-03-2024 REPEATED ABORH Brian Girard MD Work Phone: Start: 05-03-2024 Basic [...] for malign ant neoplasm of colon Colonoscopy [facility] Start: 03-29-2027 DTaP,Tdap and Td Vaccines (2 - Td or Tdap) DTaP,Tdap and Td Vaccines (2 - Td or Tdap) [facility] Start: 01-30-2026 Depression Screening Depression Scre ening [facility] Start: 01-30-2026 Tobacco Screening Tobacco Screening [facility] Start: 01-10-2026 Adult BMI Screening Adult BMI Screen ing [facility] Start: 01-10-2026 Tobacco Screening Tobacco Screening [facility] Start: 01-07-2026 Adult BMI Follow Up Plan Adult BMI Follow Up Plan [facility] Start: 01-07-2026 Adult BMI Screening Adult BMI Screen ing [facility] Start: 01-07-2026 [facility] Start: 01-07-2026 Tobacco Screening Tobacco Screening [facility] Start: 10-29-2025 Adult BMI Follow Up Plan Adult BMI Follow Up Plan [facility] Start: 10-29-2025 Adult BMI Screening Adult BMI Screen ing [facility] Start: 10-22-2025 Adult BMI Screening Adult BMI Screen ing [facility] Start: 10-22-2025 Tobacco Screening Tobacco Screening [facility] Start: 10-08-2025 Adult BMI Follow Up Plan Adult BMI Follow Up Plan [facility] Start: 10-08-2025 Adult BMI Screening Adult BMI Screen ing [facility] Start: 10-08-2025 Tobacco Screening Tobacco Screening [facility] Start: 09-24-2025 Tobacco Screening Tobacco Screening [facility] Start: 06-25-2025 Adult BMI Screening Adult BMI Screen ing [facility] Start: 05-15-2025 Depression Screening Depression Scre ening [facility] Start: 05-15-2025 Tobacco Screening Tobacco Screening [facility] Start: 05-08-2025 Depression Screening Depression Scre ening [facility] Start: 05-08-2025 Tobacco Screening Tobacco Screening [facility] Start: 05-03-2025 Adult BMI Screening Adult BMI Screen ing [facility] Start: 05-03-2025 Tobacco Screening Tobacco Screening [facility] Start: 05-01-2025 Adult BMI Screening Adult BMI Screen ing [facility] Start: 05-01-2025 Tobacco Screening Tobacco Screening [facility] Start: 04-12-2025 Adult BMI Screening Adult BMI Screen ing [facility] Start: 04-12-2025 Tobacco Screening Tobacco Screening [facility] Start: 04-09-2025 Adult BMI Screening Adult BMI Screen ing [facility] Start: 04-09-2025 Depression Screening Depression Scre ening [facility] Start: 04-09-2025 Tobacco Screening Tobacco Screening [facility] Start: 04-05-2025 Adult BMI Screening Adult BMI Screen ing [facility] Start: 04-05-2025 Tobacco Screening Tobacco Screening [facility] Start: 03-25-2025 Influenza vaccination Influenza Vacc ine [facility] Start: 03-19-2025 Adult BMI Screening Adult BMI Screen ing [facility] Start: 03-19-2025 Tobacco Screening Tobacco Screening [facility] Start: 03-14-2025 Adult BMI Screening Adult BMI Screen ing [facility] Start: 03-14-2025 Depression Screening Depression Scre ening [facility] Start: 03-14-2025 Tobacco Screening Tobacco Screening [facility] Start: 03-12-2025 End: 03-12-2025 Patient encounter procedure 03/12/2025 8:00 AM EDT Office Visit [facility] [address] [place] [address] Daina Bailey, RAMON-NEON MOLDER [address] [place], [place] [id number] [facility] Start: 03-08-2025 Adult BMI Screening Adult BMI Screen ing [facility] Start: 03-08-2025 Depression Screening Depression Scre ening [facility] Start: 03-08-2025 Tobacco Screening Tobacco Screening [facility] Start: 02-20-2025 Adult BMI Screening Adult BMI Screen ing [facility] Start: 02-20-2025 Tobacco Screening Tobacco Screening [facility] Start: 02-13-2025 Adult BMI Screening Adult BMI Screen ing [facility] Start: 02-13-2025 Tobacco Screening Tobacco Screening [facility] Start: 02-05-2025 End: 02-05-2025 Patient encounter procedure 02/05/2025 6:45 AM EDT Appointment [facility] [address] [place] [id number] [facility] Start: 01-19-2025 Tobacco Screening Tobacco Screening [facility] Start: 01-12-2025 Adult BMI Screening Adult BMI Screen ing [facility] Start: 01-10-2025 End: 01-10-2025 Patient encounter procedure 01/10/2025 2:30 PM EDT Office Visit [facility] [address] [place] [id number] Anjali Coppola, PATIENT SUPPORT ASSOCIATE-NEON MOLDER [address] [place] [address] [facility] Start: 01-09-2025 Adult BMI Screening Adult BMI Screen ing [facility] Start: 01-09-2025 Tobacco Screening Tobacco Screening [facility] Start: 01-08-2025 End: 01-08-2026 XR Lumbar spine Views W flexion and W extension X-ray spine lumbar ap, lateral, flexion and extension only Imaging Routine Back pain, unspecified back location, unspecified back pain laterality, unspecified chronicity Expected: 01/08/2025, Expires: 01/08/2026 [facility] Work Phone: Comment on above: Expected: 01/08/2025 , Expires: 01/08/2026 Start: 01-04-2025 Adult BMI Screening Adult BMI Screen ing [facility] Start: 01-04-2025 Tobacco Screening Tobacco Screening [facility] Start: 12-27-2024 Tobacco Screening Tobacco Screening [facility] Start: 12-26-2024 Adult BMI Screening Adult BMI Screen ing [facility] Start: 12-26-2024 Tobacco Screening Tobacco Screening [facility] Start: 12-11-2024 Tobacco Screening Tobacco Screening [facility] Start: 12-05-2024 Adult BMI Screening Adult BMI Screen ing [facility] Start: 12-05-2024 Tobacco Screening Tobacco Screening [facility] Start: 11-23-2024 Adult BMI Screening Adult BMI Screen ing [facility] Start: 11-23-2024 Depression Screening Depression Scre ening [facility] Start: 11-23-2024 Tobacco Screening Tobacco Screening [facility] Start: 11-17-2024 Adult BMI Screening Adult BMI Screen ing [facility] Start: 11-17-2024 Depression Screening Depression Scre ening [facility] Start: 11-17-2024 Tobacco Screening Tobacco Screening [facility] Start: 11-08-2024 Adult BMI Screening Adult BMI Screen ing [facility] Start: 11-08-2024 Depression Screening Depression Scre ening [facility] Start: 11-08-2024 Tobacco Screening Tobacco Screening [facility] Start: 10-29-2024 End: 10-29-2024 Patient encounter procedure 10/29/2024 11:15 AM EDT [facility] [address] [place] [phone] Daina Bailey, PATIENT SUPPORT ASSOCIATE-NEON [place] [address] [facility] Start: 10-22-2024 End: 10-22-2024 Patient encounter procedure 10/22/2024 11:15 AM EDT Office Visit [facility] [address] [place] [phone] Daina Bailey, PATIENT SUPPORT ASSOCIATE-NEON MOLDER [address] [place] [address] [facility] Start: 10-18-2024 Adult BMI Screening Adult BMI Screen ing [facility] Start: 10-18-2024 Screening for malign ant neoplasm of breast Mammogram [facility] Start: 09-28-2024 Adult BMI Screening Adult BMI Screen ing [facility] Start: 09-28-2024 Depression Screening Depression Scre ening [facility] Start: 09-28-2024 Tobacco Screening Tobacco Screening [facility] Start: 09-25-2024 End: 09-25-2024 Patient encounter procedure 09/25/2024 7:00 AM EST Appointment [facility] [address] [place] [phone] [facility] Start: 09-24-2024 End: 09-24-2024 Patient encounter procedure 09/24/2024 8:30 AM EST Office Visit [facility] [address] [place] [address] Benjamin Goncalves, PATIENT SUPPORT ASSOCIATE-NEON MOLDER [address] [facility] [address] [place] [address] [facility] Start: 09-02-2024 Depression Screening Depression Scre ening [facility] Start: 09-02-2024 Tobacco Screening Tobacco Screening [facility] Start: 06-27-2024 Adult BMI Screening Adult BMI Screen ing [facility] Start: 06-25-2024 End: 06-25-2024 Patient encounter procedure 06/25/2024 1:45 PM EST Office Visit [facility] [address] [place] [phone] Benjamin Goncalves, PATIENT SUPPORT ASSOCIATE-NEON MOLDER [address] [facility] [address] [place] [address] [facility] Start: 05-22-2024 End: 05-22-2024 Patient encounter procedure 05/22/2024 2:45 PM EDT Office Visit [facility] [address] [place] [phone] Lucila Verdugo PA [address], [address] [place], [place] [phone] [facility] Start: 05-15-2024 End: 05-15-2024 Admission to same day surgery center 05/15/2024 3:30 PM EDT - 05/15/2024 5:30 PM EDT Surgery [address] [place] [phone] Brian Girard MD [address] [place] [address] [address] [place] [phone] DECOMPRESSION LUMBAR LAMINOTOMY / L4/5 AND DISCECTOMY [facility] Comment on above: DECOMPRESSION LUMBAR LAMINOTOMY / L4/5 AND DISCECTOMY Start: 05-15-2024 End: 05-15-2024 DECOMPRESSION LUMBAR LAMINOTOMY DECOMPRESSION LUMBAR LAMINOTOMY Lumbar radiculopathy Lumbar herniated disc 05/15/2024 3:30 PM EDT [facility] Start: 05-15-2024 Subsequent hospital visit by physician 05/15/2024 3:30 PM EDT Hospital Encounter [address] [place] [phone] Brian Girard MD [address] [place] [address] [address] [place] [phone] [facility] Surgery Start: 05-15-2024 End: 05-15-2024 Patient encounter procedure 05/15/2024 7:45 AM EDT Office Visit [facility] [address] [place] [phone] Lucila Verdugo PA [address] [place] [facility], [address] [place] [address] [facility] Start: 05-04-2024 End: 05-04-2024 Admission to same day surgery center 05/04/2024 2:30 PM EDT - 05/04/2024 2:37 PM EDT Surgery [facility] [address] [place] [phone] Simeon Joe MD [address] [facility] [place] [address] INJECTION BLOCK SACROILIAC JOINT [64234 (CPT )] [facility] Comment on above: INJECTION BLOCK SACR OILIAC JOINT [19290 (CPT )] Start: 05-04-2024 End: 05-04-2024 Inject si joint arthrgrphy&/anes/steroid w/verónica INJECTION BLOCK SACROILIAC JOINT Disorder of sacrum 05/04/2024 2:30 PM EDT [facility] Start: 05-04-2024 Subsequent hospital visit by physician 05/04/2024 2:30 PM EDT Hospital Encounter [facility] [address] [facility] [place] [phone] Simeon Joe MD [address] [place] [address] [facility] Start: 05-04-2024 End: 05-04-2024 Patient encounter procedure 05/04/2024 10:40 AM EDT Appointment [facility] [address] [place] [phone] Simeon Joe MD [address] [facility] [place] [address] [facility] Start: 05-03-2024 End: 05-03-2024 Patient encounter procedure 05/03/2024 12:45 PM EDT Procedure visit [facility] On [address] [address] [facility] Start: 05-01-2024 End: 05-01-2024 Patient encounter procedure 05/01/2024 11:45 AM EDT Office [facility] [address] [place] [address] Maverick Nick MD [address] [place] [address] [facility] Start: 04-27-2024 End: 04-27-2024 Admission to same day surgery center 04/27/2024 9:52 AM EDT - 04/27/2024 9:59 AM EDT Surgery [facility] [address] [place] [phone] Simeon Joe MD [address] [place], [place] [phone] INJECTION BLOCK SACROILIAC JOINT [28163 (CPT )] [facility] Comment on above: INJECTION BLOCK SACR OILIAC JOINT [03516 (CPT )] Start: 04-27-2024 End: 04-27-2024 Inject si joint arthrgrphy&/anes/steroid w/verónica INJECTION BLOCK SACROILIAC JOINT Disorder of sacrum 04/27/2024 9:52 AM EDT [facility] Start: 04-27-2024 Subsequent hospital visit by physician [facility] Start: 04-12-2024 End: 04-12-2024 Patient encounter procedure 04/12/2024 10:15 AM EDT Office Visit [facility] [address] [place] [phone] Brian Girard MD [address] [place] [phone] [facility] Start: 04-05-2024 End: 04-05-2024 Patient encounter procedure 04/05/2024 7:45 AM EDT Office Visit [facility] [address] [place] [address] Lucila Verdugo, PA [address], [address] [place] [address] [facility] Start: 03-25-2024 Influenza vaccination Influenza Vacc ine [facility] Start: 03-19-2024 End: 03-19-2024 Patient encounter procedure 03/19/2024 11:00 AM EDT Office Visit [facility] [address] [place] [address] Maverick Nick MD [address] [place] [address] [facility] Start: 03-14-2024 End: 03-14-2024 Patient encounter procedure 03/14/2024 4:00 PM EDT Office Visit [facility] [address] [place] [phone] Justina Valdez MD [address] [place], [place] [phone] [facility] Start: 03-08-2024 End: 03-08-2025 CBC W Auto Differential panel - Blood CBC auto differential Lab Routine Routine general medical examination at a health care facility Expected: 03/08/2024, Expires: 03/08/2025 [facility] Work Phone: Comment on above: Expected: 03/08/2024 , Expires: 03/08/2025 Start: 03-08-2024 End: 03-08-2025 Comprehensive metabolic 2000 panel - Serum or Plasma Comprehensive metabolic panel Lab Routine Routine general medical examination at a health care facility Expected: 03/08/2024, Expires: 03/08/2025 [facility] Comment on above: Expected: 03/08/2024 , Expires: 03/08/2025 Start: 03-08-2024 End: 03-08-2025 Lipid 1996 panel - Serum or Plasma Lipid profile Lab Routine Routine general medical examination at a health care facility Expected: 03/08/2024, Expires: 03/08/2025 [facility] Comment on above: Expected: 03/08/2024 , Expires: 03/08/2025 Start: 03-08-2024 End: 03-08-2025 Thyroid profile includes TSH FT4 Thyroid profile includes TSH FT4 Lab Routine Routine general medical examination at a health care facility Expected: 03/08/2024, Expires: 03/08/2025 [facility] Comment on above: Expected: 03/08/2024 , Expires: 03/08/2025 Start: 03-08-2024 End: 03-08-2025 Vitamin D 25 hydroxy Vitamin D 25 hydroxy Lab Routine Routine general medical examination at a health care facility Expected: 03/08/2024, Expires: 03/08/2025 [facility] Comment on above: Expected: 03/08/2024 , Expires: 03/08/2025 Start: 03-06-2024 End: 03-06-2024 Patient encounter procedure 03/06/2024 4:15 PM EDT Office Visit [facility] [address] [place] [phone] Justina Valdez MD [address] [place] [address] [facility] Start: 02-14-2024 End: 02-14-2024 Patient encounter procedure 02/14/2024 2:00 PM EDT Office Visit [facility] [address] [place] [address] Lucila Verdugo PA [address] [place] [address] [facility] Start: 01-30-2024 End: 01-30-2024 Admission to same day surgery center 01/30/2024 8:00 AM EDT - 01/30/2024 1:00 PM EDT Surgery [facility] Surgery [address] [place] [phone] Maverick Nick MD [address] [place] [address] DAVINCI COLECTOMY SIGMOID [21218 (CPT )] [facility] Surgery Comment on above: DAVINCI COLECTOMY SI GMOID [56475 (CPT )] Start: 01-30-2024 End: 01-30-2024 Anesthesia consultation 01/30/2024 8:00 AM EDT Anesthesia Event [facility] Surgery [address] [place] [address] Justina Kern MD [address] [place] [address] [facility] Surgery Start: 01-30-2024 End: 01-30-2024 Laparoscopy colectomy partial w/anastomosis DAVINCI COLECTOMY SIGMOID diverticulitis 01/30/2024 8:00 AM EDT [facility] Start: 01-30-2024 Subsequent hospital visit by physician [facility] Comment on above: Preop examination (P rimary Dx) Start: 01-20-2024 End: 01-20-2024 Admission to same day surgery center [facility] Comment on above: INJECTION BLOCK SACR OILIAC JOINT [57504 (CPT )] Start: 01-20-2024 End: 01-20-2024 Inject si joint arthrgrphy&/anes/steroid w/verónica [facility] Start: 01-20-2024 Subsequent hospital visit by physician [facility] Start: 01-17-2024 End: 01-17-2024 Patient encounter procedure 01/17/2024 10:00 AM EDT Office Visit [facility] [address] [place] [phone] Maverick Nick MD [address] [place] [address] [facility] Start: 01-13-2024 End: 01-13-2024 Patient encounter procedure 01/13/2024 9:45 AM EDT Procedure visit [facility] - Pre Admit [address] [place] [address] [facility] Start: 01-10-2024 End: 01-10-2024 Patient encounter procedure 01/10/2024 9:00 AM EDT Office Visit [facility] [address] [place] [phone] Maverick Nick MD [address] [place] [address] [facility] Start: 01-06-2024 End: 01-06-2024 Patient encounter procedure [facility] Comment on above: Arrived Lumbar degenerative disc disease; Chronic midline low back pain with left-sided sciatica; Bulging lumbar disc; Lumbar foraminal stenosis Start: 01-05-2024 End: 01-05-2024 Patient encounter procedure 01/05/2024 9:00 AM EDT Office Visit [facility] [address] [facility] [address] Lucila Verdugo PA [address] [place], [place] [phone] [facility] Start: 01-04-2024 End: 01-04-2024 Admission to same day surgery center 01/04/2024 8:00 AM EDT - 01/04/2024 8:30 AM EDT Surgery [facility] Surgery [address] [place] [address] Maverick Nick MD [address] [facility] [place] [address] COLONOSCOPY DIAGNOSTIC / SCREENING [97210 (CPT )] [facility] Comment on above: COLONOSCOPY DIAGNOST IC / SCREENING [88506 (CPT )] Start: 01-04-2024 End: 01-04-2024 Anesthesia consultation 01/04/2024 8:00 AM EDT Anesthesia Event [facility] Surgery [address] [place] [address] Angie Swift, DO [address] [place] [address] [facility] Start: 01-04-2024 End: 01-04-2024 Colonoscopy flx dx w/collj spec when pfrmd COLONOSCOPY DIAGNOSTIC / SCREENING diverticulitis 01/04/2024 8:00 AM EDT [facility] Start: 01-04-2024 Subsequent hospital visit by physician 01/04/2024 8:00 AM EDT Hospital Encounter [facility] Surgery [address] [place] [address] Maverick Nick MD [address] [place] [address] [facility] Start: 12-28-2023 End: 12-28-2023 ambulatory 12/28/2023 4:20 PM EDT Support Visit [facility] Pre Admit [address] [place] [phone] [facility] Start: 12-27-2023 End: 12-27-2023 Patient encounter procedure 12/27/2023 8:45 AM EDT Office Visit [facility] [place] [address] Brian Girard MD [facility] [address] [place] [address] [facility] Start: 12-13-2023 End: [...] encounter procedure 12/09/2023 9:15 AM EDT Appointment [facility] Imaging [address] [place] [address] [facility] Start: 12-08-2023 End: 12-08-2023 Patient encounter procedure 12/08/2023 10:00 AM EDT Office Visit [facility] [address] [place] [address] Shira Valera, RAMON-NEON MOLDER [address] [place], [place] [phone] [facility] Start: 11-30-2023 End: 11-30-2023 Patient encounter procedure 11/30/2023 7:45 AM EDT Office Visit [facility] [address] [place] [address] [place] [phone] Rubnidhinelli, Sarah, PATIENT SUPPORT ASSOCIATE-NEON MOLDER [address] [address] [facility] Start: 11-28-2023 End: 11-27-2024 MR Lumbar spine WO contrast MR lumbar spine without contrast Imaging Routine Chronic midline low back pain with left-sided sciatica Lumbar degenerative disc disease Expected: 11/28/2023, Expires: 11/27/2024 [facility] Work Phone: Comment on above: Expected: 11/28/2023 , Expires: 11/27/2024 Start: 11-24-2023 End: 11-24-2023 Patient encounter procedure 11/24/2023 3:00 PM EDT [facility] [place] [address] Justina Valdez MD [address] [place], [place] [address] [place], [place] [phone] [facility] Start: 11-24-2023 End: 11-23-2024 XR Lumbar spine 2 or 3 Views [facility] Comment on above: Expected: 11/24/2023 , Expires: 11/23/2024 Start: 11-24-2023 End: 11-23-2024 XR Pelvis 1 or 2 Views [facility] Work Phone: Comment on above: Expected: 11/24/2023 , Expires: 11/23/2024 Start: 11-22-2023 End: 11-22-2023 Patient encounter procedure 11/22/2023 11:00 AM EDT [facility] [place] [address] Justina Valdez MD [address] [place], [place] [phone] [facility] Start: 11-18-2023 End: 11-18-2023 Patient encounter procedure 11/18/2023 8:45 AM EDT Office Visit [facility] [address] [place] [address] Justina Valdez MD [address] [place], [place] [address] [facility] Start: 03-25-2023 Influenza vaccination Influenza Vacc ine [facility] Start: 2015 Administration of varicella zoster vaccine Zoster (Shingles) Vaccine (1 of 2) [facility] Start: 1986 Screening for malign ant neoplasm of cervix Pap Smear [facility] Start: 1983 Adult BMI Follow Up Plan Adult BMI Follow Up Plan [facility] Start: 1983 Diabetic foot examination Diabetic Foot Exam [facility] Start: 1965 Glaucoma screening Diabetic Op hthalmology Exam [facility] End: 02-15-2025 Bacteria identified in Urine by Culture Urine culture Microbiology Routine Postoperative abdominal pain 1 Occurrences starting 02/16/2024 until 02/15/2025 [facility] Work Phone: Comment on above: 1 Occurrences starti ng 02/16/2024 until 02/15/2025 End: 01-09-2025 Basic metabolic 2000 panel - Serum or Plasma Basic Metabolic Panel Lab Routine Diverticulitis large intestine w/o perforation or abscess w/o bleeding 1 Occurrences starting 01/10/2024 until 01/09/2025 [facility] Comment on above: 1 Occurrences starti ng 01/10/2024 until 01/09/2025 End: 01-09-2025 CBC W Auto Differential panel - Blood CBC auto differential Lab Routine Diverticulitis large intestine w/o perforation or abscess w/o bleeding 1 Occurrences starting 01/10/2024 until 01/09/2025 [facility] Comment on above: 1 Occurrences starti ng 01/10/2024 until 01/09/2025 End: 12-05-2024 Colonoscopy Colonoscopy GI Routine Diverticulitis 1 Occurrences starting 12/06/2023 until 12/05/2024 [employer] Work Phone: Comment on above: 1 Occurrences starti ng 12/06/2023 until 12/05/2024 End: 01-09-2025 ECG 12 lead ECG 12 lead ECG Routine Diverticulitis large intestine w/o perforation or abscess w/o bleeding 1 Occurrences starting 01/10/2024 until 01/09/2025 [facility] Comment on above: 1 Occurrences starti ng 01/10/2024 until 01/09/2025 Inject si joint arthrgrphy&/anes/steroid w/verónica INJECTION BLOCK SACROILIAC JOINT Disorder of sacrum [facility] Inject si joint arthrgrphy&/anes/steroid w/verónica INJECTION BLOCK SACROILIAC JOINT Disorder of sacrum [facility] End: 01-10-2026 MR Lumbar spine WO contrast MR lumbar spine without contrast Imaging Routine Lumbar spondylosis Status post lumbar laminectomy Acute midline low back pain without sciatica Bowel dysfunction 1 Occurrences starting 01/10/2025 until 01/10/2026 [employer] Work Phone: Comment on above: 1 Occurrences starti ng 01/10/2025 until 01/10/2026 Surgical Pathology Surgical Path ology Pathology and Cytology Routine Lumbar radiculopathy Lumbar herniated disc Release Upon Ordering for 1 Occurrences starting 05/15/2024 [employer] Work Phone: Comment on above: Release Upon Orderin g for 1 Occurrences starting 05/15/2024 End: 01-09-2025 Unlisted Procedure / Surgery Unlisted Procedure / Surgery Procedures Routine Diverticulitis large intestine w/o perforation or abscess w/o bleeding 1 Occurrences starting 01/10/2024 until 01/09/2025 [employer] Work Phone: Comment on above: 1 Occurrences starti ng 01/10/2024 until 01/09/2025 Immunizations Immunization Date Immunization Notes Care Provider Sandra bates 03-29-2017 tetanus toxoid, redu debbie diphtheria toxoid, and acellular pertussis vaccine, adsorbed Justina Valdez MD Work [facility]: [facility] Payers Date Payer Category Payer [employer] - Other ANTH [id number] 2021 Unknown [employer] BCBS OUT OF STATE PPO/TRUST [id number] 2021-Present [phone] [address] [place] [address] [id number] 1965 Unknown [id number] 2.16840.1.366415.3.579. 2.593 1965 Unknown [id number] 2.16840.1.382576.3.579. 2.593 1965 Unknown [id number] 2.16840.1.861018.3.579. 2.593 1965 Unknown [id number] 2.16840.1.559918.3.579. 2.593 1965 Unknown [id number] 2.16840.1.956756.3.579. 2.1286 1965 Unknown [id number] 2.16840.1.030826.3.579. 2.1286 1965 Unknown [id number] 2.16.840.1.087899.3.579. 2.1286 1965 Unknown [id number] 2.16840.1.042953.3.579. 2.1286 1965 Unknown [id number] 2.16.840.1.980900.3.579. 2.1286 1965 Unknown [id number] 2.840.1.810729.3.579. 2.1285 1965 Unknown [id number] 2.840.1.718209.3.579. 2.1285 1965 Unknown [id number] 2.840.1.527705.3.579. 2.1285 1965 Unknown [id number] 2.840.1.626643.3.579. 2.1285 1965 Unknown [id number] 2.840.1.884911.3.579. 2.1285 1965 Unknown [id number] 2.840.1.086947.3.579. 2.1285 1965 Unknown [id number] 2.840.1.315461.3.579. 2.1285 1965 Unknown [id number] .840.1.689355.3.579. 2.1285 1965 Unknown [id number] 2840.1.599377.3.579. 2.1285 1965 Unknown [id number] 2.840.1.999277.3.579. 2.1285 1965 Unknown [id number] 2840.1.311121.3.579. 2.1285 1965 Unknown [id number] 2840.1.279571.3.579. 2.1285 1965 Unknown [id number] .840.1.012050.3.579. 2.1285 1965 Unknown [id number] 2.840.1.337962.3.579. 2.1285 1965 Unknown [id number] 2.840.1.040950.3.579. 2.1285 1965 Unknown [id number] 2840.1.722351.3.579. 2.1285 1965 Unknown [id number] 2.16.840.1.184775.3.579. 2.1285 1965 Unknown [id number] 2.16.840.1.662193.3.579. 2.1285 1965 Unknown [id number] 2.16.840.1.854217.3.579. 2.1285 1965 Unknown [id number] 2.16.840.1.103829.3.579. 2.1285 1965 Unknown [id number] 2.840.1.365197.3.579. 2.1285 1965 Unknown [id number] 2.840.1.763158.3.579. 2.1285 1965 Unknown [id number] 2.840.1.475306.3.579. 2.1285 1965 Unknown [id number] 2.840.1.813268.3.579. 2.1285 1965 Unknown [id number] 2.840.1.542267.3.579. 2.1285 1965 Unknown [id number] 2.840.1.847735.3.579. 2.1285 1965 Unknown [id number] 2.840.1.517861.3.579. 2.1285 1965 Unknown [id number] 2.840.1.746107.3.579. 2.1285 1965 Unknown [id number] 2.840.1.256722.3.579. 2.1285 1965 Unknown [id number] 2.16840.1.122896.3.579. 2.1285 1965 Unknown [id number] 2.16840.1.485174.3.579. 2.1285 1965 Unknown [id number] 2.840.1.275253.3.579. 2.1285 1965 Unknown [id number] 2.840.1.622247.3.579. 2.1285 1965 Unknown [id number] 2.840.1.367923.3.579. 2.1285 1965 Unknown [id number] 2.840.1.963455.3.579. 2.1285 1965 Unknown [id number] 2.840.1.116775.3.579. 2.1285 1965 Unknown [id number] .0.1.879529.3.579. 2.1285 1965 Unknown [id number] 2.840.1.868393.3.579. 2.1285 1965 Unknown [id number] .1.545104.3.579. 2.1285 1965 Unknown [id number] .0.1.749980.3.579. 2.1285 1965 Unknown [id number] .1.155985.3.579. 2.1285 1965 Unknown [id number] 09.09.830.1.422044.3.579. 2.1285 1965 Unknown [id number] .1.295663.3.579. 2.1285 1965 Unknown [id number] 840.1.792802.3.579. 2.1285 1965 Unknown [id number] 09.09.830.1.208091.3.579. 2.1285 1965 Unknown [id number] 840.1.760274.3.579. 2.1285 1965 Unknown [id number] 2840.1.937607.3.579. 2.1285 1965 Unknown [id number] .1.944596.3.579. 2.1286 1959 [facility] [id number] 2.16.840.1.378621.19 1959 Self-pay Social History Date Type Detail Facility Unknown if ever smoked [facility] Start: 06-21-2022 End: 01-30-2025 Sex Assigned At [facility] Start: 01-09-2024 End: 05-03-2024 Tobacco smoking status SDIS Ex-smoker (finding) [facility] Start: 1965 Sex Assigned At Female [facility] Start: 07-25-2005 End: 07-25-2012 History of tobacco use Current smoker [facility] Start: 07-25-2005 End: 07-25-2012 History of tobacco use Cigarette Smoker [facility] Start: 06-21-2022 End: 11-09-2023 Cigarettes smoked current (pack per day) - Reported 1 [facility] Start: 11-09-2023 End: 05-03-2024 Tobacco use and exposure Smokeless tobacco non-user [facility] Start: 11-09-2023 End: 01-30-2025 Alcoholic beverage intake Current drinker of alcohol (finding) [facility] Do you belong to any clubs or organizations such as amish groups, unions, fraternal or athletic groups, or school groups? Yes [facility] Are you now , , , , never or living with a partner? [facility] How often to you hav e a drink containing alcohol? Monthly or less [facility] How many standard dr inks containing alcohol do you have on a typical day? 1 or 2 [facility] How often do you hav e 6 or more drinks on 1 occasion? Never [facility] How hard is it for y ou to pay for the very basics like food, housing, medical care, and heating Not hard at all [facility] Do you feel stress - tense, restless, nervous, or anxious, or unable to sleep at night because your mind is troubled all the time - these days [OSQ] Not at all [facility] Start: 05-18-2022 Alcohol Comment rare-2 drinks/year [facility] Start: 1965 Sex assigned at Not on file [facility] [facility] Start: 12-27-2023 End: 12-28-2023 Alcoholic beverage intake Ex-drinker (finding) [facility] Has the [employer], [employer], [employer], or water company threatened to shut off services in your home in past 12Mo No [employer] Start: 05-03-2024 Tobacco Comment 1 pk a day in past [facility] Start: 02-27-2015 End: 09-17-2024 Sex Female (finding) [facility] Functional Status Date Assessment Result [facility] Notes 05-16-2021 to 01-30-2025 Daina Bailey, PATIENT SUPPORT ASSOCIATE-[facility] - 01/30/2025 1:00 PM EDTTelephone Encounter - Annamaria Mata, BEHAVIORAL HEALTH TECH - 01/14/2025 4:03 PM EDTTelephone Encounter - Benjamin Goncalves, PATIENT SUPPORT ASSOCIATE-[facility] - 01/14/2025 4:03 PM EDT Note Date & Type Note Facility 01-30-2025 History of Present illness Narrative Images from the original note were not included. [address] [facility] [address] SUBJECTIVE: Patient ID: Mar Adame is a 60 y.o. female. Patient presents to the office for complaints of right knee pain. She twisted it a few weeks ago and went to the ER. Work up was negative. She did [place] a [place] and the ER gave her a knee brace but it did not stay up. She got one at [facility] that works better but she is still having a lot of pain. She twisted her knee when she was turning and her shoe stayed and her knee turned. Taking tylenol arthritis and that does help but does not take the pain away and is icing it. She is also walking in the pool. The following portions of the patient's history [...] gait problem, joint swelling and neck pain. Right knee pain Skin: Negative for pallor and rash. Neurological: Negative for dizziness, weakness, light-headedness and numbness. Psychiatric/Behavioral: Negative for sleep disturbance. The patient is not nervous/anxious. PHYSICAL EXAMINATION: Vitals: 01/30/25 1300 BP: 130/70 Pulse: 77 Resp: 18 SpO2: 98% Weight: 110.7 kg (244 lb) Physical Exam [...] Musculoskeletal: Cervical back: Normal range of motion. Right knee: Decreased range of motion. Tenderness present over the lateral joint line. Skin: General: Skin is warm and dry. Neurological: Mental Status: She is alert and oriented to person, place, and time. Psychiatric: Mood and Affect: Mood normal. ASSESSMENT/PLAN: Shavonne was seen today for knee injury. Diagnoses and all orders for this visit: Acute pain of right knee - Ambulatory referral to Orthopedic Surgery; Future Follow-up: Referral orthopedic surgery Continue with supportive care Reviewed er notes Patient noted to have elevated BMI and the following intervention(s) were applied: encouragement to exercise. Daina Bailey APRN-NEON MOLDER 01/30/25 1321 documented in this encounter [facility] 01-14-2025 Miscellaneous Notes Shavonne calls asking for a prescription for a medrol dose radha, previously prescribed by PCP 01/08/25-01/14/25. Patient reports that this is helpful and was advised at office visit on 01/10/25 that if she is needing a refill to call our office and let provider know. Please advise on medrol dose radha, [facility] preferred pharmacy. I sent a refill. If her symptoms don't improve, she may need a follow up. Call to Shavonne and informed that a refill for medrol dose pack was sent in, but if symptoms do not improve, she will need to make a follow up appt. She verbalizes understanding. documented in this encounter [facility] 01-14-2025 Telephone encounter Note Shavonne calls asking for a prescription for a medrol dose radha, previously prescribed by PCP 01/08/25-01/14/25. Patient reports that this is helpful and was advised at office visit on 01/10/25 that if she is needing a refill to call our office and let provider know. Please advise on medrol dose radha, [facility] is preferred pharmacy. [facility] 01-14-2025 Telephone encounter Note I sent a refill. If her symptoms don't improve, she may need a follow up. [facility] 01-14-2025 Telephone encounter Note Call to Shavonne and informed that a refill for medrol dose pack was sent in, but if symptoms do not improve, she will need to make a follow up appt. She verbalizes understanding. [facility] 01-10-2025 History of Present illness Narrative Images from the original note were not included. [facility] [address] [place] [address], [address] [place] [address] * CHART NOTE ? 01/10/2025 Patient: Mar Adame 1965 [id number] Nurse Practitioner: Benjamin Goncalves CNP Physician: Brian Girard MD, FAANS [...] she was hiking while on vacation on [place] earlier this month. She advises, on the way home, she began to notice midline low back pain that has since improved by 50-60%. Shavonne advises the pain is exacerbated by sleeping and laying down. She admits to difficulty moving her bowels since the symptoms started, advising she feels a pressure. Denies loss of special education case manager strength, saddle anesthesia, urinary dysfunction, weakness, numbness [...] 12/17/2022 Performed by Analia Sharif MD at [facility] ENDOSCOPY COLONOSCOPY DIAGNOSTIC / SCREENING N/A 01/04/2024 Performed by Maverick Nick MD at [facility] COLECTOMY SIGMOID N/A 01/30/2024 Performed by Maverick Nick MD at [facility] DECOMPRESSION LUMBAR LAMINOTOMY / L4/5 AND DISCECTOMY Right 05/15/2024 Performed by Brian Girard MD at [facility] INJECTION BLOCK SACROILIAC JOINT Bilateral 01/20/2024 Performed by Simeon Joe MD at [facility] SOCIAL HISTORY Social History Socioeconomic [...] min Stress: No Stress Concern Present (06/21/2022) [place] [employer] - Occupational Stress Questionnaire Feeling of Stress : Not at all Social Connections: Socially Integrated (06/21/2022) Social Connection and Isolation Panel [NHANES] Frequency of Communication with Friends and Family: More than three times a week Frequency of Social Gatherings with Friends and Family: More than three times a week Attends Yarsani Services: More than 4 times per year [...] greatest at L3-4. Electronically Signed By: Benjamin Goncalves CNP This note was created with the assistance of a speech recognition program with the goal of generating a timely record of the patient encounter. Inadvertent computerized breaker hand errors related to syntax, spelling, homophones, and/or inaudibility may be present. SURAJ Perdomo 01/10/25 1528 documented in this encounter [facility] 01-10-2025 Instructions SURAJ Perdomo - 01/10/2025 2:30 PM EDT Patient seen today by Akanksha MCKEON Lumbar w/o contrast Will call results to georgette MCKEON documented in this encounter [facility] 01-07-2025 History of Present illness Narrative Images from the original note were not included. [address] [facility] [id number] SUBJECTIVE: Patient ID: Mar Adame is a [...] following intervention(s) were applied: encouragement to exercise. Daina Bailey APRN-SARAH 01/08/25 0806 documented in this encounter [employer] 10-29-2024 History of Present illness Narrative Images from the original note were not included. [address] [place] [address] SUBJECTIVE: Patient ID: Mar Adame is a [...] Hernandez 10/29/24 1140 documented in this encounter [employer] 10-22-2024 History of Present illness Narrative Images from the original note were not included. [address] [facility] [address] SUBJECTIVE: Patient ID: Mar Adame is a [...] Hernandez 10/22/24 1149 documented in this encounter [employer] 10-08-2024 History of Present illness Narrative Images from the original note were not included. [address] [place] [address] SUBJECTIVE: Patient ID: Mar Adame is [...] Hernandez 10/08/24 1333 documented in this encounter [facility] 09-24-2024 History of Present illness Narrative Images from the original note were not included. [facility] [address] [place] [address], [address] [place] [address] * CHART NOTE ? 09/19/2024 Patient: Mar Adame 1965 [id number] Physician: Benjamin Goncalves CNP CHIEF COMPLAINT Follow up, lumbar. HISTORY OF PRESENT ILLNESS 59 yo female s/p lumbar laminotomy and discectomy on 05/15/24 presents to the clinic for a follow up visit reporting she has only mild pain in the low back. She completed PT which, she states, provided good relief. Denies loss of special education case manager strength, saddle anesthesia, urinary or bowel dysfunction, [...] up as needed. Electronically Signed By: Benjamin Goncalves CNP This note was created with the assistance of a speech recognition program with the goal of generating a timely record of the patient encounter. Inadvertent computerized breaker hand errors related to syntax, spelling, homophones, and/or inaudibility may be present. SURAJ Perdomo 09/24/24 0843 documented in this encounter [facility] 09-24-2024 Instructions Alexia Galvez CMA - 09/24/2024 8:30 AM EST Patient was seen today by Akanksha. Will f/u PRN. SS documented in this encounter [facility] 06-25-2024 History of Present illness Narrative Images from the original note were not included. [facility] [address] [place] [address], [place] [address] * CHART NOTE ? 06/25/2024 Patient: Mar Adame 1965 [id number] Physician: Benjamin Goncalves CNP CHIEF COMPLAINT Postop. HISTORY OF PRESENT [...] at times as well. Denies loss of special education case manager strength, saddle anesthesia, urinary or bowel dysfunction, [...] in 3 months. Electronically Signed By: Benjamin Goncalves CNP This note was created with the assistance of a speech recognition program with the goal of generating a timely record of the patient encounter. Inadvertent computerized breaker hand errors related to syntax, spelling, homophones, and/or inaudibility may be present. SURAJ Perdomo 06/25/24 1342 documented in this encounter [facility] 06-25-2024 Instructions Alexia Galvez CMA - 06/25/2024 1:45 PM EST Patient was seen by Akanksha hooker. Physical therapy referral placed. 3 month follow up visit scheduled. Letter written to RTW in 6 weeks. Flexeril and medrol radha called in. SS documented in this encounter [facility] 05-16-2024 Hospital course Narrative Images from the original note were not included. [facility] [address] [place] [address], [address] [place] [address] * NEUROSURGERY DISCHARGE SUMMARY Patient: Mar Adame Date of : 1965 Acct: [id number] Primary Care Physician: Justina Valdez MD Admit [...] Your Medications These medications were sent to [facility] - [place], [place] - [address] [facility] [address] [place] [address] naloxone 4 mg/actuation spray,non-aerosol nasal spray oxyCODONE-acetaminophen [...] have been deemed acceptable and clinically appropriate. SHANICE Burrows-BC, PRESS WRITER Neurosurgery [facility] [phone] 05/16/24 9:08 AM SURAJ Kaufman 05/16/24 0911 documented in this encounter [facility] 05-16-2024 Hospital Discharge instructions SURAJ Kaufman - [...] in the coming weeks Other Instructions: Call [facility] Neurosurgery with any questions, . The following attachments cannot be sent through Care Everywhere.Spinal Stenosis Stretching Exercises (Nigerian)Radiculopathy Discharge Instructions (Nigerian)Intervertebral Discectomy Discharge Instructions (Nigerian)documented in this encounter [facility] 05-15-2024 Miscellaneous Notes Brief Post-op Note NAME: Mar Adame : 1965 PROCEDURE DATE: 05/15/2024 Surgeon: Surgeons and Role: * Brian Girard MD - Primary Assistants: None Staff: Battalion Chief Primary: Alivia Yang RN Battalion Chief Relief: Lashae Levy RN Scrub Person: ST Stephanie Chiropractor Assistant: Tasneem Sharif RN Pre-op Diagnosis: Lumbar radiculopathy [...] Back, Lower SURGICAL PATHOLOGY Brian Girard MD 05/15/20249 Estimated Blood Loss: 40 mL OB Surgical Procedure Blood Loss: Anesthesia EBL: * No values recorded between 05/15/2024 4:27 PM and 05/15/2024 5:59 PM * OB QBL: * No values recorded between 05/15/2024 4:27 PM and 05/15/2024 5:59 PM * Condition: stable Findings: right paracentral disc herniation Evidence of infection was not visualized at time of surgery. documented in this encounter [facility] 05-15-2024 Procedure note Brief Post-op Note NAME: Mar Adame : 1965 PROCEDURE DATE: 05/15/2024 Surgeon: Surgeons and Role: * Brian Girard MD - Primary Assistants: None Staff: Battalion Chief Primary: Alivia Yang RN Battalion Chief Relief: Lashae Levy RN Scrub Person: ST Stephanie Chiropractor Assistant: Tasneem Sharif RN Pre-op Diagnosis: Lumbar radiculopathy [...] Back, Lower SURGICAL PATHOLOGY Brian Girard MD 05/15/20249 Estimated Blood Loss: 40 mL OB Surgical Procedure Blood Loss: Anesthesia EBL: * No values recorded between 05/15/2024 4:27 PM and 05/15/2024 5:59 PM * OB QBL: * No values recorded between 05/15/2024 4:27 PM and 05/15/2024 5:59 PM * Condition: stable Findings: right paracentral disc herniation Evidence of infection was not visualized at time of surgery. [facility] 05-15-2024 Attending History and physical note HISTORY AND PHYSICAL INTERVAL NOTE: Mar Adame 1965 [id number] H&P reviewed. The patient was examined and there are no changes to the H&P. Brian Girard MD Source Note - Justina Valdez MD - 05/08/2024 9:45 AM EDT Images from the original note were not included. [address] [facility] [address] SUBJECTIVE: Patient ID: Mar Adame is a [...] tablet daily for 4 days. Follow-up: zpak [employer] 05-15-2024 History and physical note HISTORY AND PHYSICAL INTERVAL NOTE: Mar Adame 1965 [id number] H&P reviewed. The patient was examined and there are no changes to the H&P. Brian Girard MD Source Note - Justina Valdez MD - 05/08/2024 9:45 AM EDT Images from the original note were not included. [address] [facility] [address] SUBJECTIVE: Patient ID: Mar Adame is a [...] days. Follow-up: zpak documented in this encounter [employer] 05-08-2024 History of Present illness Narrative Images from the original note were not included. [address] [facility] [address] SUBJECTIVE: Patient ID: aMr Adame is a 59 y.o. female. 59 [...] 1 tablet daily for 4 days. Follow-up: bebeto [facility] Miscellaneous Notes Patient calls and leaves a message stating that she has surgery 05/15 and is receiving steroid injections tomorrow. PAT informed patient to call our office. Called patient and left a voicemail that it is ok for her to receive steroid injections tomorrow per Benjamin Goncalves CNP. documented in this encounter [employer] 05-03-2024 Telephone encounter Note Patient calls and leaves a message stating that she has surgery 05/15 and is receiving steroid injections tomorrow. PAT informed patient to call our office. [facility] 05-03-2024 Telephone encounter Note Called patient and left a voicemail that it is ok for her to receive steroid injections tomorrow per Benjamin Goncalves NEON MOLDER. [facility] 05-03-2024 History and physical note PRE-ADMISSION TESTING HISTORY AND PHYSICAL EXAM DATE: 05/03/24 PCP: Justina Valdez MD HISTORY OF PRESENT ILLNESS: Mar Adame, a 59 y.o. White or female, presents to [facility] for a pre-surgical H&P. The patient has [...] 12/17/2022 Performed by Analia Sharif MD at [facility] ENDOSCOPY COLONOSCOPY DIAGNOSTIC / SCREENING N/A 01/04/2024 Performed by Maverick Nick MD at [facility] COLECTOMY SIGMOID N/A 01/30/2024 Performed by Maverick Nick MD at [facility] INJECTION BLOCK SACROILIAC JOINT Bilateral 01/20/2024 Performed by Simeon Joe MD at [facility] FAMILY HISTORY: Family History Problem [...] the most recent lab values available in [facility] at the time the H&P was signed. ASSESSMENT / DIAGNOSIS: Lumbar radiculopathy [M54.16] PLAN: Mar Adame is scheduled for Decompression Lumbar Laminotomy / L4/5 And Discectomy - Right on 05/15/[address] Girard. SURAJ Gil 05/03/24 1350 [employer] Work Phone: 05-03-2024 History and physical note PRE-ADMISSION TESTING HISTORY AND PHYSICAL EXAM DATE: 05/03/24 PCP: Justina Valdez MD HISTORY OF PRESENT ILLNESS: Mar Adame, a 59 y.o. White or female, presents to [facility] for a pre-surgical H&P. The patient has [...] 12/17/2022 Performed by Analia Sharif MD at [facility] ENDOSCOPY COLONOSCOPY DIAGNOSTIC / SCREENING N/A 01/04/2024 Performed by Maverick Nick MD at [facility] COLECTOMY SIGMOID N/A 01/30/2024 Performed by Maverick Nick MD at [facility] INJECTION BLOCK SACROILIAC JOINT Bilateral 01/20/2024 Performed by Simeon Joe MD at [facility] FAMILY HISTORY: Family History Problem [...] the most recent lab values available in [facility] at the time the H&P was signed. ASSESSMENT / DIAGNOSIS: Lumbar radiculopathy [M54.16] PLAN: Mar Adame is scheduled for Decompression Lumbar Laminotomy / L4/5 And Discectomy - Right on 05/15/[address] Girard. SURAJ Gil 05/03/24 1350 documented in this encounter [employer] 05-03-2024 Instructions Ginette Bruce RN - 05/03/2024 [...] clean clothes. Your surgery/procedure is scheduled at [facility] on 05-15-2024 at 3:30pm Arrival Time 1:30pm [facility] Address: [address] [place] [address]. [place] [address] [address] in [address] Parking lot located on [facility]. Report to the Entrance B. Check in at the information desk the surgery. The waiting room located on the second floor. If you have any questions prior to surgery, please call Pre-Admission Clinic at [phone] between 7:30 am and 4:30 pm Tuesday through Tuesday. If you have questions the morning of surgery, please call the Pre-op Department at [phone]. Notify your SURGEON if you develop any [...] piercings ,hair extensions that contain metal, nail surinamese, make-up, and contact lens. You may brush [...] RIGHTS AND RESPONSIBILITIES As a patient at [facility], you have the right to: Receive medical care and be informed of who is taking care of you Be treated with dignity and respect Have a family member/associate financial representative of choice and your physician notified of your admission Receive information and actively participate in decisions about your care and treatment Refuse care, treatment and services Decide who may provide your support and speak for you Access yarsani and spiritual services Participate in ethical issues [...] of hospital charges and payment methods Patient/patient associate financial representative responsibilities are to: Provide information about [...] promptly as possible documented in this encounter [facility] 05-01-2024 History of Present illness Narrative Images [...] Follow-up as needed documented in this encounter [facility] 04-25-2024 Miscellaneous Notes Patient called today to [...] narcotic short-term, the provider will have a [id number] discussion with her to discuss safety, risk/benefits, [...] Modules accepted: Orders documented in this encounter [facility] 04-25-2024 Note Addended by: KATTY CUNNINGHAM on: 04/26/2024 02:40 PM Modules accepted: Orders [facility] 04-25-2024 Telephone encounter Note Patient called today [...] narcotic short-term, the provider will have a [id number] discussion with her to discuss safety, risk/benefits, [...] severe she should go to the ED. [facility] 04-25-2024 Telephone encounter Note Too soon for another round of po steroids. May continue flexeril. I could take over her gabapentin and increase it to 600TID as long as she has no side effects from current dose of 300 [facility] 04-25-2024 Telephone encounter Note Pt states she hasn't taken gabapentin 300 in 2-3 weeks since being on percocet. Pt needs flexeril refill. Order pending for flexeril. Do you want gabapentin started at 600 mg TID if she hasn't been on it for 2-3 weeks? [facility] 04-25-2024 Telephone encounter Note Can restart at 300tid. If tolerating well by next week she can call and we can increase to 600 a tthat time [facility] 04-25-2024 Telephone encounter Note Called pt to inform her to start titration gabapentin 300 TID PVU [facility] 04-17-2024 Miscellaneous Notes Patient surgery got rescheduled for 04/27/24. Patient out of pain medication, patient asking if that can be refilled to last her until surgery. She is still having pain and numbness in legs. [facility] [place] Caio I am only to subscribe 7 days for this med, I will rx 7days, but I can't do more Oaars and rx sent Please have pt take 1/2 and or only as needed Correction surgery is 05/19/24. Asking if work note can be given til then yes Note made, letter to be picked up in office documented in this encounter [facility] 04-17-2024 Telephone encounter Note Patient surgery got rescheduled for 04/27/24. Patient out of pain medication, patient asking if that can be refilled to last her until surgery. She is still having pain and numbness in legs. [facility] [place] 04-17-2024 Telephone encounter Note I am only to subscribe 7 days for this med, I will rx 7days, but I can't do more Oaars and rx sent Please have pt take 1/2 and or only as needed [facility] 04-17-2024 Telephone encounter Note Correction surgery is 05/19/24. Asking if work note can be given til then [facility] 04-17-2024 Telephone encounter Note yes [facility] 04-17-2024 Telephone encounter Note Note made, letter to be picked up in office [facility] 04-12-2024 Note Clinical history: Preoperative evaluation. Comparisons: None Findings: 2 views of the chest obtained. Heart size and pulmonary vasculature appear within normal limits. Lungs appear clear. There is no pleural effusion nor pneumothorax. IMPRESSION: No evidence for acute cardiopulmonary disease. Finalized by Todd Ingram MD on 04/12/2024 3:19 PM [facility] 04-12-2024 Note XR CHEST 2 VWS Clinical history: Preoperative evaluation. Comparisons: None Findings: 2 views of the chest obtained. Heart size and pulmonary vasculature appear within normal limits. Lungs appear clear. There is no pleural effusion nor pneumothorax. IMPRESSION: No evidence for acute cardiopulmonary disease. Finalized by Todd Ingram MD on 04/12/2024 3:19 PM [facility] 04-12-2024 History of Present illness Narrative Images from the original note were not included. [facility] [address] [place] [address], [address] [place] [address] * CHART NOTE ? 04/12/2024 Patient: Mar Adame 1965 [id number] Nurse Practitioner: Benjamin Goncalves, NEON MOLDER Physician: Brian Girard MD, FAANS IMPRESSION / [...] to the patient's understanding. Denies loss of special education case manager strength, saddle anesthesia, urinary or bowel dysfunction, [...] 12/17/2022 Performed by Analia Sharif MD at [facility] ENDOSCOPY COLONOSCOPY DIAGNOSTIC / SCREENING N/A 01/04/2024 Performed by Maverick Nick MD at [facility] COLECTOMY SIGMOID N/A 01/30/2024 Performed by Maverick Nick MD at [facility] INJECTION BLOCK SACROILIAC JOINT Bilateral 01/20/2024 Performed by Simeon Joe MD at [facility] SOCIAL HISTORY Social History Socioeconomic History [...] min Stress: No Stress Concern Present (06/21/2022) [place] [employer] - Occupational Stress Questionnaire Feeling of Stress : Not at all Social Connections: Socially Integrated (06/21/2022) Social Connection and Isolation Panel [NHANES] Frequency of Communication with Friends and Family: More than three times a week Frequency of Social Gatherings with Friends and Family: More than three times a week Attends Yarsani Services: More than 4 times per year [...] record of the patient encounter. Inadvertent computerized breaker hand errors related to syntax, spelling, homophones, and/or inaudibility may be present. Scribe Statement: Scribed for and in the presence of Brian Girard MD by Park Young. Provider Statement: I, Brian Girard MD personally performed the services described in the documentation, as scribed by Park Young in my presence, and it is both accurate and complete documented in this encounter [facility] 04-12-2024 Instructions CAILIN Kothari - 04/12/2024 10:15 AM EDT Patient was seen today by DR. Girard. Offered surgery for L4-5 Laminotomy and discectomy. Chest xray order placed. Patient will meet with Shannon outpatient scheduler, to go over consents. JA documented in this encounter [facility] 04-09-2024 History of Present illness Narrative Images from the original note were not included. [facility] [id number] SUBJECTIVE: Patient ID: Mar Adame is a 59 y.o. female. 59 yo WF with 1 week of severe low back pain and right leg pain and sees pain management and has tried PTx and was noted disc protrusion 04/06 withct scan lumbar spine at ER , [...] and percocet OARRS documented in this encounter [facility] 04-06-2024 Miscellaneous Notes Patient was seen in [...] and diskectomy noted documented in this encounter [facility] 04-06-2024 Telephone encounter Note Patient was seen in the office yesterday with increased low back pain. She was prescribed a MDP and a right SI joint injection was ordered. Patient began the MDP yesterday (all doses taken) and has not gotten any relief as of yet. Pain is a /10 today. She is alternating ice/heat, taking Cyclobenzaprine [...] we can possibly move her procedure up. [facility] 04-06-2024 Telephone encounter Note Please call and check on pt. Can she take nsaids? [facility] 04-06-2024 Telephone encounter Note Called pt, states she is on her way to see Dr Girard right now as her right leg is numb still and on another round of steroids. She doesn't like to take NSAIDs because she has an enlarged kidney. She will call us after her appt with the outcome. [facility] 04-06-2024 Telephone encounter Note noted [facility] 04-06-2024 Telephone encounter Note Kianna called pt to move up her procedure, pt states dr girard told her she needs surgery and will be scheduled for Right L 4/5 laminectomy and diskectomy [facility] 04-06-2024 Telephone encounter Note noted [facility] 04-05-2024 History of Present illness Narrative [facility] [address] [place] [address] Patient: Mar Adame Sex: female : 1965 Age: 59 y.o. PCP: Justina Valdez MD 04/05/2024 Mar Adame is here for a(n) follow up. Patient reports her pain has been severe recently. Date of onset of pain: 09/2023 , pain has lasted greater than 3 months. Chief Complaint Patient presents with Back Pain HPI: PT x 1 week at [facility] in September or October 2023 without relief (1 session in the pool). Patient has a consult tomorrow at [facility] to setup future PT 01-20-2024 Bilateral Sacroiliac [...] 12/17/2022 Performed by Analia Sharif MD at [facility] ENDOSCOPY COLONOSCOPY DIAGNOSTIC / SCREENING N/A 01/04/2024 Performed by Maverick Nick MD at [facility] COLECTOMY SIGMOID N/A 01/30/2024 Performed by Maverick Nick MD at [facility] INJECTION BLOCK SACROILIAC JOINT Bilateral 01/20/2024 Performed by Simeon Joe MD at [facility] Allergies Allergen Reactions Iodinated Contrast Media [...] min Stress: No Stress Concern Present (06/21/2022) [place] [employer] - Occupational Stress Questionnaire Feeling of Stress : Not at all Social Connections: Socially Integrated (06/21/2022) Social Connection and Isolation Panel [NHANES] Frequency of Communication with Friends and Family: More than three times a week Frequency of Social Gatherings with Friends and Family: More than three times a week Attends Yarsani Services: More than 4 times per year [...] accurate and complete. Lidya Escamilla CNA 04/05/24 0810 Lidya Escamilla CNA 04/05/24 0839 ZAHRA Crowley 04/05/24 1051 documented in this encounter [facility] [employer] 04-05-2024 Instructions Lidya Escamilla CNA - 04/05/2024 7:45 AM EDT Facet Injection [...] nearest emergency room. documented in this encounter [facility] [employer] 04-02-2024 Miscellaneous Notes Patient with back pain, tylenol is not helping, patient asking if medication can be sent to [facility]. Patient to see pain clinic on 04/05/24 1) pt is on gabapentin(?) this is a pain reliever 2) tylenol can be used with this 3) pt has been on flexeril in the past .muscle relaxer can we send this in for refill? What pharm? Left message for patient to call office Would like muscle relaxer sent to [facility] [place] Patient would like work excuse until she can see pain management Rx sent flexeril to [facility] [place], yes to off work Patient advised, letter for work sent to [employer] documented in this encounter [facility] 04-02-2024 Telephone encounter Note Patient with back pain, tylenol is not helping, patient asking if medication can be sent to [facility]. Patient to see pain clinic on 04/05/24 [facility] 04-02-2024 Telephone encounter Note 1) pt is on gabapentin(?) this is a pain reliever 2) tylenol can be used with this 3) pt has been on flexeril in the past .muscle relaxer can we send this in for refill? What pharm? [facility] 04-02-2024 Telephone encounter Note Left message for patient to call office [facility] 04-02-2024 Telephone encounter Note Would like muscle relaxer sent to [facility] [place] Patient would like work excuse until she can see pain management [facility] 04-02-2024 Telephone encounter Note Rx sent flexeril to [facility] [place], yes to off work [facility] 04-02-2024 Telephone encounter Note Patient advised, letter for work sent to [employer] [facility] 03-20-[address] [facility]. In note to pharmacy it [...] Emma Stroud CMA documented in this encounter [facility] 03-20-[address] Nick [facility]. In note to pharmacy it [...] this is what Dr Nick would want. [facility] 03-20-2024 Telephone encounter Note Images from the original note were not included. That is fine. Received: Yesterday DO Emma Reed CMA [facility] 03-19-2024 History of Present illness Narrative Images [...] in 6 weeks documented in this encounter [facility] 03-14-2024 History of Present illness Narrative Images from the original note were not included. [address] [facility] [id number] SUBJECTIVE: Patient ID: Mar Adame is a [...] days.. Follow-up: [facility] documented in this encounter [facility] [employer] 03-08-2024 History of Present illness Narrative Images from the original note were not included. [address] [place] [id number] Subjective: Mar Adame is a 59 y.o. [...] 11/15/2022 Seasonal allergies Dermatographia 06/21/2022 Morbid obesity ([facility]) 06/21/2022 Eczema 06/21/2022 Rosacea 05/18/2022 Primary hydronephrosis [...] back pain Lumbar spondylosis 05/25/2016 Morbid obesity ([facility]) 06/21/2022 Neck pain Primary hydronephrosis 07/07/2020 ==== [...] 12/17/2022 Performed by Analia Sharif MD at [facility] ENDOSCOPY COLONOSCOPY DIAGNOSTIC / SCREENING N/A 01/04/2024 Performed by Maverick Nick MD at [facility] COLECTOMY SIGMOID N/A 01/30/2024 Performed by Maverick Nick MD at [facility] INJECTION BLOCK SACROILIAC JOINT Bilateral 01/20/2024 Performed by Simeon Joe MD at [facility] Family History Problem Relation Age [...] and colonoscopy utd documented in this encounter [facility] 02-27-2024 Miscellaneous Notes The patient called the [...] work until then. documented in this encounter [facility] 02-27-2024 Telephone encounter Note The patient called [...] to remain off of work until then. [facility] 02-24-2024 Miscellaneous Notes Patient states that she [...] that she understands. documented in this encounter [facility] 02-24-2024 Telephone encounter Note Patient states that [...] the pain. Patient sates that she understands. [facility] 02-21-2024 History of Present illness Narrative Images [...] work next Tuesday documented in this encounter [facility] 02-14-2024 History of Present illness Narrative [facility] [address] [place] [address] Patient: Mar Adame Sex: female : 1965 [...] Pain HPI: PT x 1 week at [facility] in September or October 2023 without relief (1 session in the pool). Patient has a consult tomorrow at [facility] to setup future PT 01-20-2024 Bilateral Sacroiliac [...] back pain Lumbar spondylosis 05/25/2016 Morbid obesity ([facility]) 06/21/2022 Neck pain Primary hydronephrosis 07/07/2020 ==== [...] by Analia Sharif MD at [facility] COLONOSCOPY DIAGNOSTIC / SCREENING N/A 01/04/2024 Performed by Maverick Nick MD at [facility] DAVINCI COLECTOMY SIGMOID N/A 01/30/2024 Performed by Maverick Nick MD at [facility] INJECTION BLOCK SACROILIAC JOINT Bilateral 01/20/2024 Performed by Simeon Joe MD at [facility] Allergies Allergen Reactions Iodinated Contrast Media [...] date: 2005 Quit date: 2013 Years since quittin.5 Smokeless tobacco: Never Vaping [...] min Stress: No Stress Concern Present (06/21/2022) [place] [employer] - Occupational Stress Questionnaire Feeling of Stress : Not at all Social Connections: Socially Integrated (06/21/2022) Social Connection and Isolation Panel [NHANES] Frequency of Communication with Friends and Family: More than three times a week Frequency of Social Gatherings with Friends and Family: More than three times a week Attends Yarsani Services: More than 4 times per year [...] accurate and complete. Lidya Escamilla CNA 02/14/24 3502 ZAHRA Crowley 02/14/24 4131 documented in this encounter [facility] 02-14-2024 History of Present illness Narrative Images [...] in 2 weeks documented in this encounter [facility] [employer] 01-29-2024 Miscellaneous Notes ----- Message from Stephanie [...] same? na Protocols used: Colonoscopy Symptoms and Liytxfktv-R-EL States was able to complete and retain all prep except last 8 oz she threw up-- still had Gatorade to drink- states is have muddy water looking stool- Advised to finish rest of prep-- and let pre op know in the AM-- agreeable denies further questions documented in this encounter [employer] 01-29-2024 Telephone encounter Note ----- Message from Stephanie sent at 01/29/2024 2:44 PM EDT ----- pt is supposed to have colon resection done tomorrow and she vomited last 8 oz of solution she is supposed to take worried [facility] 01-29-[facility]24 Telephone encounter Note Reason for Disposition [...] same? na Protocols used: Colonoscopy Symptoms and Devjqrdyk-D-HV States was able to complete and retain all prep except last 8 oz she threw up-- still had Gatorade to drink- states is have muddy water looking stool- Advised to finish rest of prep-- and let pre op know in the AM-- agreeable denies further questions [employer] 01-13-2024 Instructions Lesly Stubbs RN - 01/13/2024 9:45 AM EDT Preoperative Education Checklist- General Surgery date: 01/30/24 Surgery time: 8a Arrival time: 610a 1. Bring a photo ID and your insurance card with you the day of surgery. You will check in at the main lobby of the [facility]- registration desk is straight ahead as soon as you walk in. Tell them you are here for surgery. 2. If you have a Living Will/Durable Power of Shopping Investigator for Health Care that is not on [...] after you have bathed. 5. NO nail surinamese/acrylic on at least one finger. If you are having a hand, wrist or foot surgery then all nail surinamese and artificial/acrylic nails must be removed from [...] please call the Preadmission Testing office at [phone], Mon.-Fri. 7 a.m.-3 p.m. Leave a voicemail [...] with your doctor. documented in this encounter [facility] [employer] 01-10-2024 History of Present illness Narrative Images [...] 12/17/2022 Performed by Analia Sharif MD at [facility] ENDOSCOPY COLONOSCOPY DIAGNOSTIC / SCREENING N/A 01/04/2024 Performed by Maverick Nick MD at [facility] Allergies Allergen Reactions Iodinated Contrast Media [...] date: 2005 Quit date: 2012 Years since quittin.4 Smokeless tobacco: Never Vaping [...] min Stress: No Stress Concern Present (06/21/2022) [place] [employer] - Occupational Stress Questionnaire Feeling of Stress : Not at all Social Connections: Socially Integrated (06/21/2022) Social Connection and Isolation Panel [NHANES] Frequency of Communication with Friends and Family: More than three times a week Frequency of Social Gatherings with Friends and Family: More than three times a week Attends Yarsani Services: More than 4 times per year [...] patient/family/caregiver Referring and communicating with other health primary care pediatrician Maverick Nick MD [facility] [place] documented in this encounter [facility] 01-05-2024 History of Present illness Narrative [facility] [address] [place] [address] Patient: Mar Adame Sex: female : 1965 Age: 58 y.o. PCP: Justina Valdez MD 01/05/2024 Mar Granda Marina is here for a(n) initial consultation. Chief Complaint Patient presents with Back Pain HPI: PT x 1 week at [facility] in September or October 2023 without relief (1 session in the pool). Patient has a consult tomorrow at [facility] to setup future PT Back Pain The [...] 12/17/2022 Performed by Analia Sharif MD at [facility] ENDOSCOPY COLONOSCOPY DIAGNOSTIC / SCREENING N/A 01/04/2024 Performed by Maverick Nick MD at [facility] Allergies Allergen Reactions Iodinated Contrast Media [...] min Stress: No Stress Concern Present (06/21/2022) [place] [employer] - Occupational Stress Questionnaire Feeling of Stress : Not at all Social Connections: Socially Integrated (06/21/2022) Social Connection and Isolation Panel [NHANES] Frequency of Communication with Friends and Family: More than three times a week Frequency of Social Gatherings with Friends and Family: More than three times a week Attends Yarsani Services: More than 4 times per year [...] Crowley 01/05/24 1043 documented in this encounter [facility] [employer] 01-05-2024 Instructions Lidya Escamilla CNA - 01/05/2024 [...] nearest emergency room. documented in this encounter [employer] 12-28-2023 Nurse Note Preoperative Education Checklist- General Surgery date: 01/04/24 Surgery time: 8a Arrival time: 610a 1. Bring a photo ID and your insurance card with you the day of surgery. You will check in at the main lobby of the [facility]- registration desk is straight ahead as soon as you walk in. Tell them you are here for surgery. 2. If you have a Living Will/Durable Power of Shopping Investigator for Health Care that is not on [...] after you have bathed. 5. NO nail surinamese/acrylic on at least one finger. If you are having a hand, wrist or foot surgery then all nail surinamese and artificial/acrylic nails must be removed from [...] please call the Preadmission Testing office at [phone], Mon.-Fri. 7 a.m.-3 p.m. Leave a voicemail if needed. Pre-Surgery Instructions: Medication Instructions methylPREDNISolone (MEDROL, RADHA,) 4 mg tablet Stop taking 0 days prior to procedure [facility] 12-28-2023 Miscellaneous Notes Preoperative Education Checklist- General Surgery date: 01/04/24 Surgery time: 8a Arrival time: 610a 1. Bring a photo ID and your insurance card with you the day of surgery. You will check in at the main lobby of the [facility]- registration desk is straight ahead as soon as you walk in. Tell them you are here for surgery. 2. If you have a Living Will/Durable Power of Shopping Investigator for Health Care that is not on [...] after you have bathed. 5. NO nail surinamese/acrylic on at least one finger. If you are having a hand, wrist or foot surgery then all nail surinamese and artificial/acrylic nails must be removed from [...] please call the Preadmission Testing office at [phone], Mon.-Fri. 7 a.m.-3 p.m. Leave a voicemail if needed. Pre-Surgery Instructions: Medication Instructions methylPREDNISolone (MEDROL, RADHA,) 4 mg tablet Stop taking 0 days prior to procedure [facility] History of Present illness Narrative Images from the original note were not included. [facility] [address] [place] [address], [address] [place] [address] * CHART NOTE ? 12/27/2023 Patient: Mar Adame 1965 [id number] Nurse Practitioner: Benjamin Goncalves CNP Physician: Brian Girard MD, FAANS [...] fall at times. She was admitted to [facility] for diverticulitis approximately 6 weeks ago, and was treat for her back pain at the same time. She was given morphine and [place] while in the hospital. She completed one week of PT at [facility] in September or October without improvement. She has not had any chiropractic treatment or interventional pain procedures. Denies loss of special education case manager strength, saddle anesthesia, urinary or bowel dysfunction, [...] polyps 11/15/2022 Lumbar spondylosis 05/25/2016 Morbid obesity ([facility]) 06/21/2022 Primary hydronephrosis 07/07/2020 ==== 07/07/2020 ==== [...] date: 2005 Quit date: 2012 Years since quittin.4 Smokeless tobacco: Never Vaping [...] min Stress: No Stress Concern Present (06/21/2022) [place] [employer] - Occupational Stress Questionnaire Feeling of Stress : Not at all Social Connections: Socially Integrated (06/21/2022) Social Connection and Isolation Panel [NHANES] Frequency of Communication with Friends and Family: More than three times a week Frequency of Social Gatherings with Friends and Family: More than three times a week Attends Yarsani Services: More than 4 times per year [...] for the patient. Electronically Signed By: Benjamin Goncalves CNP This note was created with the assistance of a speech recognition program with the goal of generating a timely record of the patient encounter. Inadvertent computerized breaker hand errors related to syntax, spelling, homophones, and/or inaudibility may be present. SURAJ Perdomo 12/27/23 0938 documented in this encounter [facility] 12-27-2023 Instructions Tiffanie Franklin CMA - 12/27/2023 8:45 AM EDT Patient was seen today by Benjamin Goncalves Given a physical therapy referral order, pain management referral order for injections and medrol dosepack. Patient to follow up at documented in this encounter [facility] 12-06-2023 History of Present illness Narrative Images [...] polyps 11/15/2022 Lumbar spondylosis 05/25/2016 Morbid obesity ([facility]) 06/21/2022 Primary hydronephrosis 07/07/2020 ==== 07/07/2020 ==== [...] min Stress: No Stress Concern Present (06/21/2022) [place] [facility] [employer] - Occupational Stress Questionnaire Feeling of Stress : Not at all Social Connections: Socially Integrated (06/21/2022) Social Connection and Isolation Panel [NHANES] Frequency of Communication with Friends and Family: More than three times a week Frequency of Social Gatherings with Friends and Family: More than three times a week Attends Yarsani Services: More than 4 times per year [...] patient/family/caregiver Referring and communicating with other health primary care pediatrician Maverick Nick MD [facility] General Surgery [place] documented in this encounter [facility] 11-28-2023 Miscellaneous Notes ----- Message from Diana [...] given all info documented in this encounter [facility] 11-28-2023 Telephone encounter Note ----- Message from Diana Gillespie LPN sent at 11/28/2023 9:23 AM EDT ----- Patient notified of test results and verbalizes understanding. Patient states she has done some physical therapy, so she would be interested in the MRI and a referral to spine clinc [facility] 11-28-2023 Telephone encounter Note MRI order please arrange and referral to spine clinic ordered please arrange [facility] 11-28-2023 Telephone encounter Note Patient given all info [facility] 11-24-2023 History of Present illness Narrative Images from the original note were not included. [id number] [facility] [id number] SUBJECTIVE: Transition of Care Additional Questions/Concerns Requiring PCP Follow-Up: This documentation is being used for Transition of Care purposes: Yes Goal: Patient will demonstrate a safe transition from hospital to home. Diagnosis on Discharge: Discharge Specialty: Gastroenterology Name of Discharging Facility: [facility] Date of Facility Discharge: 11/18/23 - 11/21/23 Date of Interactive Contact and Name of College Or University Faculty Member: Medication Review Completed: Yes Medication Reconciliation Questions/Concerns: [...] Saloni Pinedo RN, can be reached at [phone] and will follow for a minimum of 30 days following hospitalization. Communication with Home Health Agencies and Other Services Utilized/Needed by the Patient: none Patient ID: Mar Adame is a 58 y.o. female. 58 yo WF with transition of care for hospital stay 11/17- 11/20 for diverticulitis now on invanz not responding to out patient therapy( flagyl followed by cipro) Pt is following up us today and [...] Tylenol 2 bid documented in this encounter [facility] 11-18-2023 Miscellaneous Notes Per patient she has not heard anything form [facility] regarding MRI. I called and left message for them to call me back. Patient currently in [facility]. I will call her Tuesday with instructions. She needs to schedule MRI at [place] and call [facility] to schedule EMG Patient notified. documented in this encounter [facility] 11-18-2023 Telephone encounter Note Per patient she has not heard anything form [facility] regarding MRI. I called and left message for them to call me back. [facility] 11-18-2023 Telephone encounter Note Patient currently in [facility]. I will call her Tuesday with instructions. She needs to schedule MRI at [facility] and call [facility] to schedule EMG [facility] 11-18-2023 Telephone encounter Note Patient notified. [facility] 11-18-2023 History of Present illness Narrative Images from the original note were not included. [address] [facility] [id number] SUBJECTIVE: Patient ID: Mar Adame is a 58 y.o. female. 58 yo WF with now over 10days of lower abdominal pain , possible diverticular disease , seen in [place] [facility] 10d ago and rx'd flagyl and [...] for further eval documented in this encounter [facility] 11-17-2023 Miscellaneous Notes Patient went to Gastro today and was given the wrong address for the office. Patient very upset and now wants referred to [facility]. Please cancel old referral and place new. Thanks! Refferal in place documented in this encounter [facility] 11-17-2023 Telephone encounter Note Patient went to [facility]astro today and was given the wrong address for the office. Patient very upset and now wants referred to [facility]. Please cancel old referral and place new. Thanks! [facility] 11-17-2023 Telephone encounter Note Refferal in place [facility] 11-16-2023 Miscellaneous Notes Patient finishes antibiotic tomorrow [...] and scheduled appt. documented in this encounter [facility] 11-16-2023 Telephone encounter Note Patient finishes antibiotic tomorrow and she is still having a lot of flank pain. She is calling gastro to get appt. BM are soft formed stools every other day.No blood in stool. Please advice. RA [place] [facility] 11-16-2023 Telephone encounter Note Can refill cipro 500mg bid x7d for an additional week , please f/u gastro, if pt wishes I can recheck pt in 1 week [facility] 11-16-2023 Telephone encounter Note Patient notified and scheduled appt. [facility] 11-09-2023 History of Present illness Narrative Images from the original note were not included. [address] [facility] [id number] SUBJECTIVE: Patient ID: Mar Adame is a 58 y.o. female. 58 yo WF with ER f/u for left sided flank pain onset 10/31 and then went to ER 11/01 , and return ed to ER 11/07 for medication side effect (metronidazole ), pt [...] ER report reviewed [facility] History of Present illness Narrative Images from the original note were not included. [address] [place] [id number] SUBJECTIVE: Patient ID: Mar Adame is a [...] referral Home exercises [facility] History of Present illness Narrative Images from the original note were not included. [address] [facility] [id number] SUBJECTIVE: Patient ID: [...] this visit: Lumbar degenerative disc disease - [facility] [place], [place]; Future Other orders - cyclobenzaprine (FLEXERIL) 10 mg tablet; Take 1 tablet (10 mg total) by mouth nightly. - predniSONE (STERAPRED DS) 10 mg tablet pack; Take by mouth daily for 8 days. 6 tabs qd x 3 d then 1 less each day with food Follow-up: Hold meloxicam x 8d then reume Prednisone and flexeril ptx documented in this encounter [facility] 09-09-2022 Evaluation note Encounter Date Diagnosis Assessment [...] weeks for the cough to go away [employer] Other 07-12-2022 NotePROCEDURE: XR FINGER MIN 2 VIEWS COMPARISON: None. HISTORY: Enthesopathy FINDINGS: BONES:No fracture, acute abnormality, or significant arthropathy. SOFT TISSUES:Soft tissue swelling of the third finger EFFUSION:None visible. OTHER: Negative. IMPRESSION: Soft tissue swelling. No acute fracture or significant degenerative changes of the right third finger Electronically authenticated by: JUSTINA TIMMONS Date: 2022-02-02 19:24[facility]10-23-2021 Evaluation note* Encounter Date Diagnosis Assessment [...] understanding and is agreeable with treatment plan timeplazza Other Evaluation noteNo InformationNort [employer] Other Evaluation note* Diagnosis Onset Date Resolution Status Diverticular disease of inte mohit without perforation or abscess [facility] Work Phone: Evaluation note* Diagnosis Diverticular disease- Primary Diverticulosis of colon (without mention of hemorrhage) documented [facility]* Diagnosis Diverticular disease- Primary Diverticulosis of colon (without mention of hemorrhage) documented [facility]* Diagnosis Diverticular disease- Primary Diverticulosis of colon (without mention of hemorrhage) Left lower quadrant abdominal pain documented [facility]* Diagnosis Diverticular disease- Primary Diverticulosis of colon (without mention of hemorrhage) Lumbar degenerative disc disease documented [facility]* Diagnosis Chronic midline low back pain with left-sided sciatica- Primary Lumbar degenerative disc disease documented [facility]* Diagnosis Diverticulitis- Primary Diverticulitis of colon (without mention of hemorrhage) documented [facility]* Diagnosis Disorder of sacrum- Primary Disorders of sacrum Chronic midline low back pain with left-sided sciatica Bulging lumbar disc Lumbar foraminal stenosis Disorder of sacrum- Primary Disorders of sacrum Lumbar degenerative disc disease Chronic midline low back pain with left-sided sciatica Bulging lumbar disc Lumbar foraminal stenosis Disorder of sacrum Disorders of sacrum documented [facility] encounter [facility]* Diagnosis Chronic midline low back pain with left-sided sciatica- Primary documented in this encounter [facility]* Diagnosis Low back pain, unspecified back pain laterality, unspecified chronicity, unspecified whether sciatica present- Primary documented in this encounter [facility]* Diagnosis Lumbar foraminal stenosis- Primary Chronic midline low back pain with left-sided sciatica Bulging lumbar disc documented in this encounter [facility]* Diagnosis Lumbar degenerative disc disease- Primary documented in this encounter [facility]* Diagnosis Disorder of sacrum- Primary Disorders of sacrum Diverticulitis large intestine w/o perforation or abscess w/o bleeding- Primary Disorder of sacrum Disorders of sacrum documented [facility] this encounter [facility]* Diagnosis TOS (thoracic outlet syndrome)- Primary Brachial plexus lesions documented in this encounter [facility]* Diagnosis Lumbar spondylosis- Primary Lumbosacral spondylosis without myelopathy documented in this encounter [facility]* Diagnosis Status post laparoscopic colectomy- Primary Other postprocedural status Postoperative abdominal pain Postoperative abdominal pain documented in this encounter [facility]* Diagnosis Status post laparoscopic colectomy- Primary Other postprocedural status documented in this encounter [facility]* Diagnosis Post-op pain- Primary Other acute postoperative pain documented in this encounter [facility]* Diagnosis Routine general medical examination at a health care facility- Primary [facility] Diagnosis Other acute sinusitis, recurrence not specified- Primary documented in this encounter [facility]* Diagnosis Post-op pain Other acute postoperative pain documented in this encounter [facility]* Diagnosis Disorder of sacrum- Primary Disorders of sacrum Lumbar radiculopathy Thoracic or lumbosacral neuritis or radiculitis, unspecified Lumbar herniated disc Lumbosacral spondylosis without myelopathy- Primary Disorder of sacrum Disorders of sacrum Lumbar radiculopathy Thoracic or lumbosacral neuritis or radiculitis, unspecified Lumbar herniated disc [facility] Diagnosis Disorder of sacrum- Primary Disorders of sacrum Lumbar radiculopathy Thoracic or lumbosacral neuritis or radiculitis, unspecified Lumbar herniated disc Status post laparoscopic colectomy- Primary Other postprocedural status Disorder of sacrum Disorders of sacrum Lumbar radiculopathy Thoracic or lumbosacral neuritis or radiculitis, unspecified Lumbar herniated disc [facility] Diagnosis Disorder of sacrum- Primary Disorders of sacrum Disorder of sacrum- Primary Disorders of sacrum Disorder of sacrum Disorders of sacrum [facility] Diagnosis Lumbar radiculopathy Thoracic or lumbosacral neuritis or radiculitis, unspecified Lumbar herniated disc Lumbar radiculopathy Thoracic or lumbosacral neuritis or radiculitis, unspecified Lumbar herniated disc Lumbar radiculopathy Thoracic or lumbosacral neuritis or radiculitis, unspecified Lumbar herniated disc [facility] Diagnosis Disorder of sacrum- Primary Disorders of sacrum Lumbar spondylosis- Primary Lumbosacral spondylosis without myelopathy Bulging lumbar disc Displacement of left side of L4-L5 intervertebral disc Disorder of sacrum Disorders of sacrum documented in this encounter [facility]* Diagnosis Lumbar radiculopathy Thoracic or lumbosacral neuritis or radiculitis, unspecified Lumbar herniated disc Other acute sinusitis, recurrence not specified- Primary Lumbar radiculopathy Thoracic or lumbosacral neuritis or radiculitis, unspecified Lumbar herniated disc documented in this encounter [facility]* Diagnosis Disorder of sacrum- Primary Disorders of sacrum Lumbar radiculopathy- Primary Thoracic or lumbosacral neuritis or radiculitis, unspecified Pre-op testing Unspecified pre-operative examination Pre-op testing Unspecified pre-operative examination documented in this encounter [facility]* Diagnosis Disorder of sacrum- Primary Disorders of sacrum Displacement of left side of L4-L5 intervertebral disc documented in this encounter [facility]* Diagnosis Lumbar spinal stenosis- Primary Spinal stenosis of lumbar region Lumbar radiculopathy Thoracic or lumbosacral neuritis or radiculitis, unspecified Lumbar herniated disc Spinal stenosis of lumbar region with neurogenic claudication Lumbar radiculopathy Thoracic or lumbosacral neuritis or radiculitis, unspecified Lumbar herniated disc documented in this encounter [facility]* Diagnosis Status post lumbar laminectomy- Primary Muscle spasm of back documented in this encounter [facility]* Diagnosis Onset Date Resolution Status Admit Date Bronchitis acute September 17, 2024 4:45pm [facility] Work Phone: Evaluation note* Diagnosis Status post lumbar laminectomy- Primary documented in this encounter [facility]* Diagnosis Bronchitis- Primary Bronchitis, not specified as acute or chronic documented in this encounter [facility]* Diagnosis Bronchitis Bronchitis, not specified as acute or chronic Bronchitis Bronchitis, not specified as acute or chronic documented in this encounter [facility]* Diagnosis Bronchitis- Primary Bronchitis, not specified as acute or chronic documented in this encounter [facility]* Diagnosis Lumbar spondylosis- Primary Lumbosacral spondylosis without myelopathy documented in this encounter [facility]* Diagnosis Back pain, unspecified back location, unspecified back pain laterality, unspecified chronicity- Primary [facility]* Diagnosis Status post lumbar laminectomy- Primary Acute midline low back pain without sciatica Bowel dysfunction Lumbar spondylosis Lumbosacral spondylosis without myelopathy [facility]* Diagnosis Acute midline low back pain without sciatica- Primary Status post lumbar laminectomy [facility]* Diagnosis Acute pain of right knee- Primary documented in this encounter [facility] SystemHistory general Narrative - Reported* Type Description Date Surgical History C section x4 Surgical History cholecystectomy Hospitalization History see above timeplazza Other InstructionsNot on filedocumented in this encounter [facility] SystemInstructionsNot on filedocumented in this encounter [facility] SystemInstructions* Attachments The following attachments cannot be sent through Care Everywhere. * Diverticulosis (Nigerian) documented in this [email or web address] SystemInstructionsNot on file documented in this [email or web address] SystemInstructionsNot on file documented in this [email or web address] SystemInstructionsNot on file documented in this [email or web address] SystemInstructionsNot on file documented in this [email or web address] SystemInstructionsNot on file documented in this [email or web address] SystemInstructionsNot on file documented in this encounterProCorey HospitalJavaJobs Health SystemInstructionsNot on file documented in this [email or web address] SystemInstructionsNot on file documented in [facility] SystemInstructions* Attachments The following attachments cannot be sent through Care Everywhere. * Thoracic Outlet Syndrome Exercises (Nigerian) documented in this encounterProCorey HospitalJavaJ[facility] Health SystemInstructionsNot on file documented in this [email or web address] SystemInstructionsNot on file documented in this encounterSamaritan [facility] Health [email or web address] SystemInstructions* Attachments The following attachments cannot be sent through Care Everywhere. * Yearly Physical for Adults ([place]igerian) documented in this [email or web address] [email or web address] SystemInstructionsNot on file documented in this [email or web address] SystemInstructionsNot on file documented in this [email or web address] SystemInstructionsNot on file documented in this [email or web address] SystemInstructionsNot on file documented in this [facility] SystemInstructions* Attachments The following attachments cannot be sent through Care Everywhere. * Herniated disc ([place]ian) documented in this [facility] SystemInstructions* Attachments The following attachments cannot be sent through Care Everywhere. * Sinusitis in adults ([place]igerian) documented [facility] SystemInstructionsNot on file documented in this [facility]* Attachments The following attachments cannot be sent through Care Everywhere. * Acute bronchitis in adults (Nigerian) [facility] SystemInstructions* Attachments The following attachments cannot be sent through Care Everywhere. * Acute bronchitis in adults (Nigerian) documented in [facility] SystemInstructions* Attachments The following attachments cannot be sent through Care Everywhere. * Acute Bronchitis Discharge Instructions, Adult (Nigerian) documented in this [facility]way[facility]* Attachments The following attachments cannot be sent through Care Everywhere. * Spondylolysis ([place]igerian) documented in this encounterProW[facility] HospitalInstructionsNot on file documented [facility]* Attachments The following attachments cannot be sent through Care Everywhere. * Knee pain (Nigerian) documented in this [facility]wayReason for referral (narrative)* Consultation (Routine) - Authorized Specialty Diagnoses / Procedures Referred By Raquel feliciano Referred To Contact Gastroenterology Diagnoses Diverticular disease Justina Valdez MD [address] [place] [address] Analia Sharif MD [address] [place] [address], [place] [address] Referral ID Status Reason Start Date Expiration Date Visits Requested Visits Authorized [id number] Authorized Specialty Services Required 11/09/2023 11/08/2024 1 1 [facility] for referral (narrative)* Consultation (Routine) - Pending Review Specialty Diagnoses / Procedures Referred By Raquel feliciano Referred To Contact Gastroenterology Diagnoses Diverticular disease Justina Valdez MD [address] [place] [address] Marc Perez MD [address] [facility] [address] [place] [address] Referral ID Status Reason Start Date Expiration Date Visits Requested Visits Authorized [id number] Pending Review Specialty Services Required 11/17/2023 11/16/2024 1 1 [facility] for referral (narrative)* Consultation (Routine) - Authorized Specialty Diagnoses / Procedures Referred By Contac t Referred To Contact Diagnoses Chronic midline low back pain with left-sided sciatica Lumbar degenerative disc disease Justina Valdez MD [address] [place] [address] Benjamin Goncalves, PATIENT SUPPORT ASSOCIATE-NEON MOLDER [address] [facility] [address] [place] [address] Referral ID Status Reason Start Date Expiration Date V isits Requested Visits Authorized [id number] Authorized 11/28/2023 11/27/2024 1 1 * Diagnostic Imaging (Routine) - Pending Review Specialty Diagnoses / Procedures Referred By Contac t Referred To Contact Radiology Diagnoses Chronic midline low back pain with left-sided sciatica Lumbar degenerative disc disease Procedures MR lumbar spine without contrast Justina Valdez MD [address] [place] [address] [facility] [address] [place] [address] Phone: [phone] Referral ID Status Reason Start Date Expiration Date V isits Requested Visits Authorized [id number] Pending Review 11/28/2023 11/27/2024 1 1 [facility] for referral (narrative)* Consultation (Routine) - Authorized Specialty Diagnoses / Procedures Referred By Contac t Referred To Contact Neurosurgery Diagnoses Chronic midline low back pain with left-sided sciatica Justina Valdez MD [address] [place] [address] [place] [address] [facility] [address] [place] [address] Referral ID Status Reason Start Date Expiration Date Visits Requested Visits Authorized [id number] Authorized Specialty Services Required 12/13/2023 12/12/2024 1 1 [facility] for referral (narrative)* Consultation (Routine) - Pending Review Specialty Diagnoses / Procedures Referred By Contgabriel feilciano Referred To Contact Pain Medicine Diagnoses Chronic midline low back pain with left-sided sciatica Bulging lumbar disc Lumbar foraminal stenosis Benjamin Goncalves APRN-NEON MOLDER [address] [facility] [address] [place] [address] Simeon Joe MD [address] [place] [address] Referral ID Status Reason Start Date Expiration Date V isits Requested Visits Authorized [id number] Pending Review 12/27/2023 12/26/2024 1 1 * Physical Therapy (Routine) - Authorized Specialty Diagnoses / Procedures Referred By Raquel feliciano Referred To Contact Rehabilitation Diagnoses Chronic midline low back pain with left-sided sciatica Bulging lumbar disc Lumbar foraminal stenosis Benjamin Goncalves PATIENT SUPPORT ASSOCIATE-NEON MOLDER [address] [place] [address] [facility] [address] [place] [address] Referral ID Status Reason Start Date Expiration Date Visits Requested Visits Authorized [id number] Authorized Specialty Services Required 12/27/2023 12/26/2024 1 1 [facility] for referral (narrative)* Consultation (Routine) - Authorized Specialty Diagnoses / Procedures Referred By Contac t Referred To Contact Rehabilitation Diagnoses Lumbar degenerative disc disease Justina Valdez MD [address] [place] [address] [facility] [address] [place] [address] Referral ID Status Reason Start Date Expiration Date Visits Requested Visits Authorized [id number] Authorized Specialty Services Required 09/02/2023 09/01/2024 1 1 Scheduling Instructions Eval and tx low back issues twice a weekx 4-6 weeks and home exercise program [facility] for referral (narrative)* Consultation (Routine) - Authorized Specialty Diagnoses / Procedures Referred By Contgabriel t Referred To Contact Orthopedic Surgery Diagnoses TOS (thoracic outlet syndrome) Justina Valdez MD [address] [place] [address] Rajendra Hernandez MD [address] [place] [address] Referral ID Status Reason Start Date Expiration Date Visits Requested Visits Authorized [id number] Authorized Specialty Services Required 09/29/2023 09/28/2024 1 1 [facility] for referral (narrative)* Consultation (Routine) - Authorized Specialty Diagnoses / Procedures Referred By Contac t Referred To Contact Neurosurgery Diagnoses Lumbar spondylosis Bulging lumbar disc Justina Valdez MD [address] [facility] [address] [place] [address] [address] Referral ID Status Reason Start Date Expiration Date Visits Requested Visits Authorized [id number] Authorized Specialty Services Required 04/09/2024 04/09/2025 1 1 [facility] Narrative* Auth/Cert (Routine) Specialty Diagnoses / Procedures Referred By Raquel feliciano Referred To Contact Diagnoses Lumbar radiculopathy Lumbar herniated disc Lumbar radiculopathy [M54.16] Lumbar herniated disc [M51.26] Procedures DECOMPRESSION LUMBAR LAMINOTOMY / L4/5 AND DISCECTOMY Brian Girard MD [address] [place] [address] [address] [place] [phone] Phone: tel: fax: Referral ID Status Reason Start Date Expiration Date Visits Re quested Visits Authorized [id number] 1 1 [facility] Summary Purpose Family History Relationship Condition Age [...] for Visit Chief Complaint Refer by Justina valdese, diverticular disease Reason for Visit Diverticular disease of intestine without perforation or abscess Chief Complaint Admit Date sore throat, cough February 24th, 2025 4:45pm Reason for Visit Admit Date Bronchitis September 17, 2024 4:45pm Reason for Referral Specialty Diagnoses / Procedures Referred By Contac t Referred To Contact Radiology Diagnoses Postoperative abdominal pain Procedures CT abdomen and pelvis without contrast CT abdomen and pelvis without contrast Maverick Nick MD [address] [place] [address] [facility] [address] [place] [address] Phone: [phone] Referral ID Status Reason Start Date Expiration Date Visits Re quested Visits Authorized [id number] Closed 02/14/2024 02/13/2025 1 1 Specialty Diagnoses / Procedures Referred By Contac t Referred To Contact Diagnoses Diverticulitis large intestine w/o perforation or abscess w/o bleeding Procedures ECG 12 lead Maverick Nick MD [address] [place] [address] Referral ID Status Reason Start Date Expiration Date V isits Requested Visits Authorized [id number] Pending Review 01/10/2024 01/09/2025 1 1 Specialty Diagnoses / Procedures Referred By Contac t Referred To Contact Diagnoses Diverticulitis large intestine w/o perforation or abscess w/o bleeding Procedures Unlisted Procedure / Surgery Maverick Nick MD [address] [place] [address] Referral ID Status Reason Start Date Expiration Date V isits Requested Visits Authorized [id number] Pending Review 01/10/2024 01/09/2025 1 1 Specialty Diagnoses / Procedures Referred By Contac t Referred To Contact Diagnoses Disorder of sacrum Procedures Case request operating room: INJECTION BLOCK SACROILIAC JOINT Lucila Verdugo, PA [address] [place] [address] Referral ID Status Reason Start Date Expiration Date V isits Requested Visits Authorized [id number] Pending Review 01/05/2024 01/04/2025 1 1 Specialty Diagnoses / Procedures Referred By Contac t Referred To Contact Diagnoses Diverticulitis Procedures Colonoscopy Maverick Nick MD [address] [place] [address] Referral ID Status Reason Start Date Expiration Date V isits Requested Visits Authorized [id number] Pending Review 12/06/2023 12/05/2024 1 1 Additional Source Comments INFORMATION SOURCE (unrecogn ized section and content) DATE CREATED AUTHOR 05/22/[address] [facility] DATE CREATED AUTHOR AUTHOR'S ORGANIZ ATION 07/15/2021 [facility] DATE CREATED AUTHOR AUTHOR'S ORGANIZ ATION 07/19/2022 [facility] DATE CREATED AUTHOR AUTHOR'S ORGANIZ ATION 10/23/2024 [facility] DATE CREATED AUTHOR AUTHOR'S ORGANIZ ATION 01/13/2025 [facility] DATE CREATED AUTHOR AUTHOR'S ORGANIZ ATION 01/16/2025 [facility] REASON FOR VISIT (unrecogniz ed section and content) Reason Comments Knee Injury Reason Onset Date Comments medrol dose radha request 01/14/2025 Reason Comments Follow-up Lumbar follow up Specialty Diagnoses / Procedures Referred By Contac t Referred To Contact Spine Care Diagnoses Lumbar spondylosis Daina Bailey, PATIENT SUPPORT ASSOCIATE-NEON MOLDER [address] [place] [address] Phone: tel: fax: Benjamin Goncalves, PATIENT SUPPORT ASSOCIATE-NEON MOLDER [address] [address] Phone: tel: fax: Referral ID Status Reason Start Date Expiration Date V isits Requested Visits Authorized [id number] Pending Review 01/08/2025 01/08/2026 1 1 Reason [...] pain with left-sided sciatica Justina Valdez MD [address] [place] [address] [place] [address] [facility] [address] [place] [address] Referral ID Status Reason Start Date Expiration Date Visits Requested Visits Authorized [id number] Pending Review Specialty Services Required 12/13/2023 12/12/2024 1 1 Reason Comments Back Pain Specialty Diagnoses / Procedures [facility] Referred To Contact Pain Medicine Diagnoses Chronic midline low back pain with left-sided sciatica Bulging lumbar disc Lumbar foraminal stenosis Benjamin Goncalves, PATIENT SUPPORT ASSOCIATE-NEON MOLDER [address] [place] [address] Simeon Joe MD [address] [place] [address] Referral ID Status Reason Start Date Expiration Date V isits Requested Visits Authorized [id number] Pending Review 12/27/2023 12/26/2024 1 1 Reason Comments Diverticulitis DIVERTICULITIS, WAS IN [facility] 11/21/23, PER DR BRASWELL' CONSULT NOTE WANTS DR NICK TO DO DAVINCI COLON RESECTION, MADE APPT WITH LAITH AT [facility] Reason Comments PORSHA Complaining of back pain [...] January 09, 2024 End: January 09, 2024 Title I Paraprofessional Relationship Specialty Start Date End Date Justina Valdez MD [address] [place] [address] PCP - General Family Medicine 09/06/22 Title I Paraprofessional Relationship Specialty Start Date End Date Justina Valdez MD [address] [place] [address] PCP - General Family Medicine 09/06/22 Title I Paraprofessional Relationship Specialty Start Date End Date Justina Valdez MD [address] [place] [address] PCP - General Family Medicine 09/06/22 Title I Paraprofessional Relationship Specialty Start Date End Date Justina Valdez MD [address] [place] [address] PCP - General Family Medicine 09/06/22 Title I Paraprofessional Relationship Specialty Start Date End Date Justina Valdez MD [address] [place] [address] PCP - General Family Medicine 09/06/22 Title I Paraprofessional Relationship Specialty Start Date End Date Justina Valdez MD [address] [place] [address] PCP - General [facility] 09/06/22 Title I Paraprofessional Relationship Specialty Start Date End Date Justina Valdez MD [address] [place] [address] PCP - [facility] Medicine 09/06/22 Title I Paraprofessional Relationship Specialty Start Date End Date Justina Valdez MD [address] [place] [address] PCP - General [facility] Medicine 09/06/22 Title I Paraprofessional Relationship Specialty Start Date End Date Justina Valdez MD [address] [place] [address] PCP - [facility] Medicine 09/06/22 Title I Paraprofessional Relationship Specialty Start Date End Date Justina Valdez MD [address] [place] [address] PCP - General [facility] Medicine 09/06/22 Title I Paraprofessional Relationship Specialty Start Date End Date Justina Valdez MD [address] [place] [address] PCP - General [facility] Medicine 09/06/22 Title I Paraprofessional Relationship Specialty Start Date End Date Justina Valdez MD [address] [place] [address] PCP - General [facility] Medicine 09/06/22 Title I Paraprofessional Relationship Specialty Start Date End Date Justina Valdez MD [address] [place] [address] PCP - General Family [facility] 09/06/22 Title I Paraprofessional Relationship Specialty Start Date End Date Justina Valdez MD [address] [place] [address] PCP - General Family [facility] 09/06/22 Title I Paraprofessional Relationship Specialty Start Date End Date Justina Valdez MD [address] [place] [address] PCP - General Family Medicine 09/06/22 Title I Paraprofessional Relationship Specialty Start Date End Date Justina Valdez MD [address] [place] [address] PCP - General Family [facility] 09/06/22 Title I Paraprofessional Relationship Specialty Start Date End Date Justina Valdez MD [address] [place] [address] PCP - General Family [facility] 09/06/22 Title I Paraprofessional Relationship Specialty Start Date End Date Justina Valdez MD [address] [place] [address] PCP - General Family [facility] 09/06/22 Title I Paraprofessional Relationship Specialty Start Date End Date Justina Valdez MD [address] [place] [address] PCP - General Family [facility] 09/06/22 07/24/24 Title I Paraprofessional Relationship Specialty Start Date End Date Justina Valdez MD [address] [place] [address] PCP - General Family Medicine 09/06/22 07/24/24 Title I Paraprofessional Relationship Specialty Start Date End Date Justina Valdez MD [address] [place] [address] PCP - General Family Medicine 09/06/22 07/24/24 Title I Paraprofessional Relationship Specialty Start Date End Date Justina Valdez MD [address] [place] [address] PCP - General Family Medicine 09/06/22 07/24/24 Title I Paraprofessional Relationship Specialty Start Date End Date Justina Valdez MD [address] [place] [address] PCP - General Family Medicine 09/06/22 07/24/24 Title I Paraprofessional Relationship Specialty Start Date End Date Justina Valdez MD [address] [place] [address] PCP - General Family Medicine 09/06/22 07/24/24 Title I Paraprofessional Relationship Specialty Start Date End Date Justina Valdez MD [address] [place] [address] PCP - General Family Medicine 09/06/22 07/24/24 Title I Paraprofessional Relationship Specialty Start Date End Date Justina Valdez MD [address] [place] [address] PCP - General Family Medicine 09/06/22 07/24/24 Title I Paraprofessional Relationship Specialty Start Date End Date Justina Valdez MD [address] [place] [address] PCP - General Family Medicine 09/06/22 07/24/24 Title I Paraprofessional Relationship Specialty Start Date End Date Justina Valdez MD [address] [place] [address] PCP - General Family Medicine 09/06/22 07/24/24 Title I Paraprofessional Relationship Specialty Start Date End Date Justina Valdez MD [address] [place] [address] PCP - General Family Medicine 09/06/22 07/24/24 Title I Paraprofessional Relationship Specialty Start Date End Date Jsutina Valdez MD [address] [place] [address] PCP - General Family Medicine 09/06/22 07/24/24 Title I Paraprofessional Relationship Specialty Start Date End Date Justina Valdez MD [address] [place] [address] PCP - General Family Medicine 09/06/22 07/24/24 Title I Paraprofessional Relationship Specialty Start Date End Date Justina Valdez MD [address] [place] [address] PCP - General Family Medicine 09/06/22 07/24/24 Team Status: Inactive Member Role Status Dates PHYSICIAN NO FAMILY Primary Care Provider Active Start: September 17, 2024 End: September 17, 2024 Lesly Argueta APRN Attending Provider Active S tart: September 17, 2024 End: September 17, 2024 Title I Paraprofessional Relationship Specialty Start Date End Date Diana Bailey APRN-NEON MOLDER [address] [place] [address] PCP - General Family Medicine 07/25/24 Title I Paraprofessional Relationship Specialty Start Date End Date Daina Bailey, RAMON-NEON MOLDER [address] [place] [address] PCP - General Family Medicine 07/25/24 Title I Paraprofessional Relationship Specialty Start Date End Date [facility] [address] [place] [address] PCP - General Family Medicine 07/25/24 Title I Paraprofessional Relationship Specialty Start Date End Date Dain[facility] [address] [place] [address] PCP - General Family Medicine 07/25/24 Title I Paraprofessional Relationship Specialty Start Date End Date [facility]ain[facility] [address] [place] [address] PCP - General Family Medicine 07/25/24 Title I Paraprofessional Relationship Specialty Start Date End Date [facility]ain[facility] [address] [place] [address] PCP - General Family Medicine 07/25/24 Title I Paraprofessional Relationship Specialty Start Date End Date [facility]aina [facility] [address] [place] [address] PCP - General Family Medicine 07/25/24 Title I Paraprofessional Relationship Specialty Start Date End Date [facility]ain[facility] [address] [place] [address] PCP - General Family Medicine 07/25/24 Title I Paraprofessional Relationship Specialty Start Date End Date Daina Bailey APRNNEON MOLDER [address] [place] [address] PCP - General Family Medicine 07/25/24 Title I Paraprofessional Relationship Specialty Start Date End Date Daina Bailey APRN-CNP [address] [place] [address] PCP - General Family Medicine 07/25/24 Goals [...] 8 hours, First dose on Tue05/15/24 at 2044, For 2 doses, Pharmacy to adjust per renal function; Start 8 hours after pre-op dose for total of 3 doses including pre-op dose. Infuse all doses within 24 hours of initial dose. For patient less than 120 kg. ADD-VANTAGE/MBP- Discard 24 hours after activating; dissolve drug prior to administration, Indication: Surgical prophylaxis 2149 (New Bag - Provider: Nabor Hutchison RN)2220 (Stop Bag - Provider: Nabor Hutchison RN) 0426 (New Bag - Provider: Nabor Hutchison, REJI)0456 (Stop Bag - Provider: Nabor Hutchison RN) diazePAM (VALIUM) tablet 5 mg 5 mg, oral, Every 8 hours, First dose on Tue05/15/24 at 2045, Look-alike/sound-alike medication - verify indication for use. Do not use solution in feeding tubes (due to absorption to plastic tubing). Tablets may be crushed and administered in tubes (except j-tube) 215 (Given - Provider: Nabor Hutchison RN) 0507 (Given - Provider: Nabor Hutchison RN) gabapentin (NEURONTIN) capsule 300 mg 300 mg, oral, See admin instructions, Starting on Tue05/15/24 at 2041, Look-alike/sound-alike medication - verify indication for use. [...] First dose on Tue05/15/24 at 2100, Pre-op 2157 (Given - Provider: Nabor Hutchison RN) 0900 (Given - Provider: Nicole Hart RN) sodium chloride 0.9 % flush 3 mL 3 mL, intravenous, Every 12 hours scheduled, First dose on Tue05/15/24 at 2100, Once tolerating oral intake 2156 (Given - Provider: Nabor Hutchison RN) 0900 (Given - Provider: Nicole Hart RN) vancomycin (VANCOCIN) IVPB 1750 mg in 500 mL sodium chloride 0.9% (CMPD premix) (COMPLETED) 1,750 mg (rounded from 1,671 mg = 15 mg/kg 111.4 kg Order-specific weight), intravenous, at 268 mL/hr, Administer over 120 Minutes, Once, On Tue05/15/24 at 1530, For 1 dose, Pre-op, VESICANT (YELLOW), Indication: Surgical prophylaxis 153 (New Bag - Provider: Melanie Garcia RN)1739 (Stop Bag - Provider: Lucila Hennessy APRN-AGILE DEVELOPER) Continuous Medication Order 05/14/2024 05/15/2024 05/16/2024 lactated [...] 70 mg/dL, Starting on Tue05/15/24 at 2040, For 1 day, Use immediately following dextrose [...] with IV access, Starting on Tue05/15/24 at 2040, Push over 1-3 minutes STAT. If conscious [...] use. 1815 (Given - Provider: Xiomara Bone RN)1826 (Given - Provider: Xiomara Bone RN)1904 (Given - Provider: Xiomara Bone RN) gentamicin [...] at 1519, Pre-op lidocaine-EPINEPHrine (XYLOCAINE W/EPI) 0.5 %-1:[id number] injection (CANCELED) As needed, Starting on Tue05/15/24 at 1708, Intra-op 1708 (Given - Provider: Brian Girard MD) magnesium hydroxide (MILK OF MAGNESIA) [...] intravenous, Once as needed, nausea, Starting on Tue05/15/24 at 1753, For 1 dose, PACU (only), Administer over 2-5 minutes. ondansetron (PF) (ZOFRAN) injection 4 mg 4 mg, intravenous, Every 6 hours PRN, nausea, vomiting, Starting on Tue05/15/24 at 2042, Administer over 2-5 minutes. 0210 (Given - Provid er: Nabor Hutchison RN) oxyCODONE-acetaminophen (PERCOCET) 5-325 mg per tablet 1 tablet(Linked Group 1) 1 tablet, oral, Every 4 hours PRN, moderate pain - pain scale 4-6, Starting on Tue05/15/24 at 2042, Look-alike/sound-alike medication - verify indication for use. 2336 (See Alternative - Provider: Nabor Hutchison RN) 0854 (See Alternative - Provider: Nicole Hart RN) oxyCODONE-acetaminophen (PERCOCET) 5-325 mg per tablet 2 [...] pain scale 4-6, Starting on Tue05/15/24 at 2041, Look-alike/sound-alike medication - verify indication for use. Or oxyCODONE-acetaminophen (PERCOCET) 5-325 mg per tablet 2 tabletJump to med 2 tablet, oral, Every 4 hours PRN, severe pain - pain scale 7-10, Starting on Tue05/15/24 at 2041, Look-alike/sound-alike medication - verify indication for use. [...] BE BASED ON THE PRIMARY CLINICAL RECORDS. [facility]. provides no warranty or guarantee of the accuracy or completeness of information in this document.
--- NOTE | 2025-02-03 06:33 | ED_ITS ---
HPI HPI - General Adult General Chief complaint: Back Pain/Injury Stated complaint: LOWER BACK PAIN R KNEE PAIN Time Seen by Provider: 02/03/25 06:05 Mode of arrival: walk-in Limitations: no limitations History of Present Illness HPI narrative: The patient is a very pleasant 60-year-old female with a known history of back disease who presents to the emergency department with right sided back pain that radiates down the leg. The patient stated that Dr. Gonzalez did surgery on her back at specifically L4-L5 and April 2024. Patient states that she has not really had a problem since. She states that they were going to do a precautionary MRI on February 05. Patient also indicates that she has had right knee pain. She is scheduled to see Dr. Hernandez for this. She has had an x- ray that was found to be unremarkable. But she has not had further studies or workup since then. In reference to the back pain, it began February 01. She has not done any heavy lifting, moving, twisting or repetitive movements. She tried Percocet last night to help with the pain but it did not help. She is also tried Norflex which she was given after surgery and that has not helped. Ice has also not been helpful. The patient has been unable to get sleep. The patient denies any loss of bowel or bladder. No urinary retention. Although she has pain radiating down her leg it is not numb nor weak. She states moving her right leg up elicits more pain in the right side of her back. In reference to the knee, the patient indicated that several weeks ago she twisted it and it has not been right since. She was wearing a brace. She is however able to ambulate without a walker or a cane. Pain at this time is a 10 out of 10. Movement makes it worse. Nothing makes it better. Related Data Home Medications ?Medication ?Instructions ?Recorded ?Confirmed methylprednisolone 4 mg tablets in 4 mg PO Q8H 5 01/12/25 a dose pack oxycodone-acetaminophen 5 mg-325 tab 02/03/25 mg tablet Previous Rx's ?Medication ?Instructions ?Recorded orphenadrine citrate 100 mg 100 mg PO ONCE PRN muscle spasm 01/01/25 tablet,extended release #20 tabs Allergies Allergy/AdvReac Type Severity Reaction Status Date / Time Iodinated Contrast Media Allergy Intermediate Unknown Verified 02/03/25 06:10 Penicillins Allergy Intermediate unknown Verified 02/03/25 06:10 Opioid HPI Opioid Management Most Recent Opioid Data: Last Pain Scale 10 Today, 06:17 Last ORT Total Score 0 11/18/23, 15:11 Last ORT Risk Category Low Risk 11/18/23, 15:11 Review of Systems ROS Narrative 10 Systems were reviewed, and unless not ed in the HPI, all other systems are reviewed, unremarkable, or noncontributory. PFSH PFSH Medical History Diverticulitis ?K57.92 - Diverticulitis of intestine, part unspecified, without perforation or abscess without bleeding (ICD-10) Thoracic outlet syndrome of left thoracic outlet ?G54.0 - Brachial plexus disorders (ICD-10) Arm pain, chronic ?M79.603 - Pain in arm, unspecified (ICD-10) ?G89.29 - Other chronic pain (ICD-10) Diverticulitis ?K57.92 - Diverticulitis of intestine, part unspecified, without perforation or abscess without bleeding (ICD-10) Surgical History Hx of cholecystectomy ?Z90.49 - Acquired absence of other specified parts of digestive tract (ICD- 10) H/O: ?Z98.891 - History of uterine scar from previous surgery (ICD-10) Family History Grandfather Family history of CHF (congestive heart failure) Father Family history of cancer Mother Family history of hypertension Social History Within the past year, how often did you have a drink containing alcohol: monthly or less Within the past year, how many standard drinks containing alcohol did you have on a typical day: 1 or 2 Within the past year, how often did you have six or more drinks on one occasion: never Total score: 0 Score interpretation: A score less than 3 is consistent with normal alcohol co nsumption. Smoking status: Former smoker Non-prescribed substance use: denies use Previous occupational history: [employer] Highest level of school completed/degree received: some college, no degree Are you now , , , , never or living with a partner: In a typical week, how many times do you talk on the telephone with family, friends, or neighbors: 3 or more times per week How often do you get together with friends or relatives: 3 or more times per week How often do you attend mandaen or anabaptism services: 4 or more times per year Do you belong to any clubs or organizations such as mandaen groups unions, fraternal or athletic groups, or school groups: no Total score: 3 Score interpretation: A score of greater than or equal to 2 indicates the lowest level of social isolation. Little interest or pleasure in doing things: not at all Feeling down, depressed, or hopeless: not at all Feel stressed/tense/nervous/anxious/difficulty sleeping: not at all Gender Identity: female Exam Narrative Exam Narrative: Prior to examining the patient, I have washed with hospital approved and provided Antiseptic Hand [employer] and have also applied gloves.? Prior to touching the patient, I asked for consent to examine the patient.? General: Alert and oriented, well nourished, moderate to severe distress. Eye: PERRL, EOMI, normal conjunctiva. HENT: Normocephalic, normal hearing, moist oral mucosa, no scleral icterus Lungs: Clear to auscultation and percussion, non-labored respiration. Heart: Normal rate, regular rhythm, no murmur, gallop or edema. Abdomen: Soft, non-tender, non-distended, normal bowel sounds, no masses. Musculoskeletal: Normal range of motion and strength, no swelling. There is tenderness to the right paraspinal muscular area and the posterior superior iliac spine. The pain radiates above the right hip area and goes to the anterior portion of the leg she does have a little pain to the popliteal fossa and then down the front of the leg. Skin: Skin is warm, dry and pink, no rashes or lesions. Neurologic: Awake, alert, and oriented X3, CN II-XII intact. Patient has decreased reflex in the patella but it symmetrical bilaterally 1 out of 4. The patient has symmetrical sensation to light touch and pressure. The patient has 5 out of 5 symmetrical musculature to dorsiflexion, plantarflexion, extensor hallucis longus, hip flexors, quadriceps, and hamstring. Patient does have reproducible pain to her back to straight leg raise on the right but the patient can elicit this activity when asked to do it. Psychiatric: Cooperative, appropriate mood and affect.? Following the conclusion of the examination, I have washed my hands thoroughly after removing examination gloves. Constitutional Vital Signs, click to edit/add: Last Vital Signs Temp 98.3 F 02/03/25 06:13 Pulse 77 02/03/25 06:13 Resp 18 02/03/25 06:13 BP 210/90 H 02/03/25 06:13 Pulse Ox 98 02/03/25 06:13 O2 Del Method Room Air 02/03/25 06:13 Course Course Hospital Course: In summary the patient is a 60-year-old female with a history of back pain is presenting today with radicular symptoms. The patient has been taking Percocet without any relief. This morning after evaluating the patient I have given her: Morphine 4 mg IV push Zofran 4 mg IV push Toradol 15 mg IV push Methylprednisolone 125 mg IV push We will reevaluate the patient. The patient did not have any trauma therefore I did not order chest x-ray. CT scan will not show oral nerves or discs and therefore the study was also not helpful. Patient does have an MRI scheduled in the next 48 hours. Vital Signs Vital signs: Vital Signs Temperature 98.3 F 02/03/25 06:13 Pulse Rate 77 02/03/25 06:13 Respiratory Rate 18 02/03/25 06:13 Blood Pressure 210/90 H 02/03/25 06:13 Pulse Oximetry 98 02/03/25 06:13 Oxygen Delivery Method Room Air 02/03/25 06:13 Temperature 98.3 F 02/03/25 06:13 Pulse Rate 77 02/03/25 06:13 Respiratory Rate 18 02/03/25 06:13 Blood Pressure 210/90 H 02/03/25 06:13 Pulse Oximetry 98 02/03/25 06:13 Oxygen Delivery Method Room Air 02/03/25 06:13 Medical Decision Making MDM Narrative Medical decision making narrative: Patient is a 60-year-old female who presented with low back pain. I believe her signs and symptoms are consistent with an L4 lumbar radiculopathy. The patient is given pain medication. The patient did not have any imaging studies. When the patient came to the emergency department her pain is a 10 out of 10. Therefore had then placed an IV and gave multiple medications. The patient will need to be reassessed. She may have to be observed for intractable pain hopefully that the goal would be to get the patient home so that she could attend to the MRI appointment and subsequent follow-up with Dr. Gonzalez. Patient is signed out to my colleague at 7 AM who took over my shift. Patient is pending the result and pain management. Differential Diagnosis Differential Diagnosis: L4 lumbar radiculopathy, musculoskeletal strain, right knee pain, gait inst Medical Records Medical records reviewed: Yes I reviewed the patient's medical records Discharge Plan Discharge Patient Disposition: Still a Patient
[2025-02-03] MEDS: METHYLPREDNISOLONE SOD SUCC PF 125 MG/2 ML VIAL IVP (06:54)
[2025-02-03] MEDS: MORPHINE SULFATE 4 MG/ML VIAL IV (06:55)
[2025-02-03] MEDS: KETOROLAC TROMETHAMINE 30 MG/ML VIAL 15 MG IVP (06:55)
[2025-02-03 07:50] VITALS: BP 152/91; PULSE 72; O2SAT 99
--- NOTE | 2025-02-03 08:32 | CT_ITS ---
The [address] [address] Patient Name: MAR ADAME MRN: [id number] date: 1965 Sex: F Assigned Patient Location: ER Current Patient Location: ER Accession/Order Number: [id number] Exam Date: 02/03/2025 10:10 Report Date: 02/03/2025 10:16 At the request of: WALT SALOMON MD Procedure: CT lumbar spine wo con CT lumbar spine wo con 02/03/2025 8:53 AM History:Right-sided low back pain with right lower extremity radiculopathy TECHNIQUE: Multi detector CT axial slices of the lumbar spine were obtained without IV contrast. Volumetric acquisition sagittal, coronal, and 3-D reconstructions were performed and reviewed on a separate workstation. CT was performed with one or more of the following dose reduction techniques: Automated exposure control, adjustment of the mA and/or kV according to patient size, or use of iterative reconstruction technique. COMPARISON: 11/08/2023 FINDINGS: There is preservation of the vertebral body heights. There is mild intervertebral disc height loss at L3-L4, L4-5, and L5-S1 with accompanying facet hypertrophy. There is evidence of previous right hemilaminotomy at L4. There is a recurrent disc extrusion with cranial migration to the right of midline at L4-5. This contributes to significant spinal canal stenosis on the right and right-sided neural foraminal narrowing. No fractures or dislocations are seen. The alignment of the lumbar spine is normal. The paraspinous soft tissues are within normal limits. The visualized lung parenchyma is unremarkable. Atherosclerotic changes are noted in the abdominal aorta. CT/CT lumbar spine wo con IMPRESSION: No acute bony abnormality or malalignment. There is evidence of previous right hemilaminotomy at L4. There is a recurrent disc extrusion with cranial migration to the right of midline at L4-5. This contributes to significant spinal canal stenosis on the right and right-sided neural foraminal narrowing. Additional but lesser degrees of degenerative changes are noted as above. Impression dictated by: Ivan Macias M.D. 02/03/2025 10:16 AM Dictation Location: [place] [address] Electronically authenticated by: [id number] Y Date: 02/03/2025 10:16
--- NOTE | 2025-02-03 08:33 | PC.NURSE ---
THIS RN IN TO D/C PT - PT GETTING UP TO LEAVE AND STATES HER PAIN IS A 10/10 WHEN SHE STANDS UP BUT FEELS FINE WHEN SHE'S LAYING FLAT. IV ALREADY REMOVED. INFORMED DR SALOMON - SHE WILL COME AND SPEAK WITH PT.
[2025-02-03] MEDS: KETOROLAC TROMETHAMINE 30 MG/ML VIAL 15 MG IM (11:32)
[2025-02-03] MEDS: DIAZEPAM 2 MG TABLET PO (11:33)
[2025-02-03] MEDS: MORPHINE SULFATE 4 MG/ML VIAL 3 MG IV (12:06)
[2025-02-03 12:16] VITALS: BP 153/95; PULSE 84; O2SAT 94
[2025-02-03 12:17] LABS: Hematocrit 42.7 % (36.0-48.0); Hemoglobin 14.5 g/dL (12.0-16.0); Immature Granulocytes Abs Auto 0.03 10^3/uL (0.00-0.03); Immature Granulocytes Pct Auto 0.4 % (0.0-0.5); Lymphocytes Absolute Auto 0.7 10^3/uL (1.2-3.8); Mean Corpuscular HGB Conc 34.0 g/dL (29.9-35.2); Mean Corpuscular Hemoglobin 33.6 pg (26.7-34.0); Mean Corpuscular Volume 98.8 fL (81.0-99.0); Platelet Count 337 10^3/uL (150-450); Red Blood Count 4.32 10^6/uL (4.20-5.40); White Blood Count 7.8 10^3/uL (4.0-11.0)
[2025-02-03 12:30] LABS: Alanine Aminotransferase 21 U/L (14-59); Albumin Globulin Ratio 0.9; Albumin Level 3.7 g/dL (3.4-5.0); Alkaline Phosphatase 86 U/L (46-116); Anion Gap 16.1; Aspartate Amino Transferase 14 U/L (15-37); Blood Urea Nitrogen 15.0 mg/dL (7.0-18.0); Calcium 9.2 mg/dL (8.5-10.1); Carbon Dioxide 25.0 mmol/L (21.0-32.0); Chloride 102 mmol/L (98-107); Estimated GFR (African America >60 (>=60 mL/min/1.73m^2); Estimated GFR (Non-African Ame >60 (>=60 mL/min/1.73m^2); Globulin 4.0 g/dL; Glucose 151 mg/dL (74-106); Potassium 4.1 mmol/L (3.5-5.1); Sodium 139 mmol/L (136-145); Total Protein 7.7 g/dL (6.4-8.2)
--- NOTE | 2025-02-03 12:55 | PC.NURSE ---
Report called to Aminah WATTERS
== END 2025-02-03 13:24 | disposition short-term general hospital (02) ==
PROVIDERS: Emergency Medicine; Emergency Provider Emergency Medicine; PCP Nurse Practitioner Family
DX: M54.50 Low back pain, unspecified (principal); M51.9 Unspecified thoracic, thoracolumbar and lumbosacral intervertebral disc disorder; M25.561 Pain in right knee; Z90.49 Acquired absence of other specified parts of digestive tract; Z87.891 Personal history of nicotine dependence
CPT/HCPCS: 36415; 72131; 80053; 85025; 96372; 96374; 96375; 96376; 99285; J1885; J2270; J2405; J2919